=== PATIENT | male | born 1980 | race Caucasian/White ===

== ENCOUNTER 2020-03-27 15:00 | Observation (INO) | payer MEDICAID, SELFPAY ==
[2020-03-27 15:11] VITALS: BP 121/71; PULSE 82; RESP 14; TEMP 38; O2SAT 95
[2020-03-27 15:47] LABS: Bilirubin Small (Negative); Blood Negative (Negative); Clarity Clear (Clear); Glucose Negative (Negative); Ketones Negative (Negative); Leukocyte Esterase Negative (Negative); Nitrite Negative (Negative); Specific Gravity >= 1.030 (1.005-1.025); Urobilinogen 0.2 EU/dL (Up TO 0.2)
[2020-03-27 15:50] VITALS: TEMP 36.6
[2020-03-27 16:00] LABS: Bacteria Negative HPF (Negative); C & S Indicated? No; Casts Negative LPF (Negative); Crystals Few Calcium Oxalate HPF (Negative); Epithelial Cells Negative HPF (Negative); Mucus Heavy (Negative); Other Cells Negative (Negative); RBC Negative HPF (0-2)
[2020-03-27 16:24] LABS: *AMPHETAMINES SCREEN URINE Negative (Negative); *BARBITURATES SCREEN URINE Negative (Negative); *BENZODIAZEPINES SCREEN URINE Negative (Negative); Cannabinoids THC POSITIVE (Negative); Cocaine Screen,Urine POSITIVE (Negative); METHADONE URINE SCREEN POSITIVE (Negative); OPIATES URINE SCREEN POSITIVE (Negative)
[2020-03-27 16:37] LABS: Tricyclic Antidepressants POSITIVE (Negative)
--- NOTE | 2020-03-27 17:11 | CMSP_ITS ---
- If Service Date Differs Date of service: 03/27/20 Time of Service: 17:11 Care Management Safety Plan Chief Complaint: William is a 39 year old male who is currently homeless. He presents to the ED due to suicidal ideation with a plan of overdosing. William has a history of substance use and admits to last using heroin approximately 24 hours ago. He denies recent use of any other substances but his UDS returns positive for cocaine, methadone, and THC, in addition to opiates. William is seeking a voluntary placement for the treatment of suicidal ideation and his substance use. VOLUNTARY FOR INPATIENT PSYCHIATRIC STABILIZATION. Patient is appropriate in all interactions since arriving at [facility]; Pt has demonstrated appropriate coping and communication skills, has articulated his needs and concerns and is fully engaged during staff interactions. Safety plan has been established with patient, and care team, to adhere to patient goals, identify restrictions based on behavioral status, address nutrition, and determine allowed personal belongings, tools for hygiene and personal care. Determine level of activity including ambulation, level of supervision, visitors, and determine privileges based on behaviors and level of engagement by pt. SAFETY PLAN: 1. Will remain on suicide precautions. In Paper Clothes 2. Will remain in room under direct supervision of one-on-one staff at all times provided by CPSO; RADHA, STAFF PSYCHOLOGIST crabbing machine operator. 3. May have paper cups, plates, finger foods as well as a cardboard spoon with which to eat meals. 4. Follow [facility] Management of the Admitted Behavioral Health Patient policy. 5. Comfort bath system only. 6. No personal belongings 7. Visitors-No visitors at this time 8. Activities: None while in the ED. If moved to Med/Surg, patient will be allowed soft tip crayons, paper, television, and other activities at nursing discretion. 9. Bathroom privileges: While in the ED, must be accompanied by staff. If patient is moved to Med/Percy, he will be allowed to use the bathroom in his room without supervision. 10. Phone: No phone privileges at this time. 11. Due to VOLUNTARY status, if patient wishes to leave [facility], the [facility] cement and concrete plant worker must be contacted to re-evaluate patient prior to patient exiting the building. Patient is currently voluntarily at [facility] and seeking inpatient admission when a bed becomes available. [facility] Frontline Test Inspection Engineer will continue seeking placement. Please contact the Screen Handler Gold[employer]ater ([phone]) and [facility] Test Inspection Engineer ([phone]) for any needed changes in the Safety Plan. Safety plan has been provided to interdepartmental care team.
--- NOTE | 2020-03-27 17:53 | W.ED.GENAD ---
Discharge Plan Disposition Patient Disposition: OTHER Discharge Details Chief Complaint: PsychEval Clinical Impression: Suicide ideation, Polysubstance abuse Admit Date/Time: 03/27/20 18:57 Admit Provider: Leon Pickard Attending Provider: Leon Pickard Primary Care Provider: Charo Callejas ED Provider: Colton Ortega Medical Decision Making 39-year-old gentleman with history of polysubstance abuse presents to the ER requesting placement for suicidal ideation and help with his substance abuse. Of note he presented with a temperature of 38.0, had just come in from outside. Temperature was rechecked and was 36.6. I do not believe that he was truly febrile. He denies any recent illness or trauma. No signs of illness upon evaluation. No signs of withdrawal upon evaluation. CPSO, mental health examination, care management, all initiated. Will obtain routine laboratory values for medical clearance for placement to a facility. I spoke with mental health, they agree he requires inpatient therapy and are attempting to place him although this will likely not happen today. We will add on a COVID test now. We will discuss case with our hospitalist team for admission until placement may be found. Medical Records Medical records reviewed: Yes I reviewed the patient's medical records. Lab Data Lab results reviewed: Yes I reviewed the patient's lab results. Lab results narrative: Laboratory Tests Range/Units 03/27/20 03/27/20 03/27/20 15:30 15:30 18:22 WBC (4.4-10.8) k/cumm RBC (4.50-6.00) m/cumm Hgb (13.5-17.5) g/dL Hct (40.0-50.0) % MCV (80-95) fL MCH (27.0-33.0) pg MCHC (32.0-36.0) g/dL RDW (11.8-14.1) % Plt Count (130-400) x1000/uL MPV (8.0-11.0) fL Immature Gran % % Neutrophils % Lymphocytes % Monocytes % Eosinophils % Basophils % Absolute Neutrophils (1.2-6.7) k/cumm Absolute Lymphocytes (1.2-3.4) k/cumm Absolute Monocytes (0.11-0.7) k/cumm Absolute Eosinophils (0.0-0.7) k/cumm Absolute Basophils (0.0-0.2) k/cumm Sodium (136-145) mmol/L 140 Potassium (3.5-5.1) mmol/L 4.0 Chloride (98-107) mmol/L 103 Carbon Dioxide (21.0-32.0) mmol/L 31.5 Anion Gap (3-11) mmol/L 5.5 BUN (7-18) mg/dL 10 Creatinine (0.70-1.30) mg/dL 1.12 Estimated GFR/1.73 m2 (mL/min/1.73m2) >= 60.00 Glucose (74-106) mg/dL 88 Calcium (8.5-10.1) mg/dL 9.2 Total Bilirubin (0.2-1.0) mg/dL 0.4 AST (15-37) U/L 19 ALT (16-63) U/L 16 Alkaline Phosphatase (46-116) U/L 80 Total Protein (6.4-8.2) g/dL 8.1 Albumin (3.4-5.0) g/dL 3.5 TSH (0.36-3.74) uIU/mL 0.43 Urine Color (Yellow) Yellow Urine Clarity (Clear) Clear Urine pH (5-8) 6.0 Ur Specific [place] (1.005-1.025) >= 1.030 H Urine Protein (Negative) mg/dL 30 H Urine Ketones (Negative) mg/dL Negative Urine Blood (Negative) Negative Urine Nitrite (Negative) Negative Urine Bilirubin (Negative) Small H Urine Urobilinogen (Up TO 0.2) EU/dL 0.2 Ur Leukocyte Esterase (Negative) Negative Urine RBC (0-2) HPF Negative Urine WBC (0-5) HPF 3-5 Ur Epithelial Cells (Negative) HPF Negative Urine Crystals (Negative) HPF Few calcium oxalate Urine Bacteria (Negative) HPF Negative Urine Casts (Negative) LPF Negative Urine Mucus (Negative) Heavy Urine Other (Negative) Negative Ur Culture Indicated? No Urine Glucose (Negative) mg/dL Negative Urine Opiates Screen (Negative) Positive A Urine Methadone Screen (Negative) Positive A Ur Barbiturates Screen (Negative) Negative Ur Tricyclics Screen (Negative) Positive A Ur Amphetamines Screen (Negative) Negative U Benzodiazepines Scrn (Negative) Negative Urine Cocaine Screen (Negative) Positive A Ur THC Screen (Negative) Positive A Ethyl Alcohol (<3) mg/dL Range/Units 03/27/20 03/27/20 18:22 18:22 WBC (4.4-10.8) k/cumm 9.44 RBC (4.50-6.00) m/cumm 5.12 Hgb (13.5-17.5) g/dL 13.5 Hct (40.0-50.0) % 41.6 MCV (80-95) fL 81.3 MCH (27.0-33.0) pg 26.4 L MCHC (32.0-36.0) g/dL 32.5 RDW (11.8-14.1) % 16.4 H Plt Count (130-400) x1000/uL 449 H MPV (8.0-11.0) fL 8.6 Immature Gran % % 0.2 Neutrophils % 66.0 Lymphocytes % 25.8 Monocytes % 7.2 Eosinophils % 0.5 Basophils % 0.3 Absolute Neutrophils (1.2-6.7) k/cumm 6.22 Absolute Lymphocytes (1.2-3.4) k/cumm 2.44 Absolute Monocytes (0.11-0.7) k/cumm 0.68 Absolute Eosinophils (0.0-0.7) k/cumm 0.05 Absolute Basophils (0.0-0.2) k/cumm 0.03 Sodium (136-145) mmol/L Potassium (3.5-5.1) mmol/L Chloride (98-107) mmol/L Carbon Dioxide (21.0-32.0) mmol/L Anion Gap (3-11) mmol/L BUN (7-18) mg/dL Creatinine (0.70-1.30) mg/dL Estimated GFR/1.73 m2 (mL/min/1.73m2) Glucose (74-106) mg/dL Calcium (8.5-10.1) mg/dL Total Bilirubin (0.2-1.0) mg/dL AST (15-37) U/L ALT (16-63) U/L Alkaline Phosphatase (46-116) U/L Total Protein (6.4-8.2) g/dL Albumin (3.4-5.0) g/dL TSH (0.36-3.74) uIU/mL Urine Color (Yellow) Urine Clarity (Clear) Urine pH (5-8) Ur Specific [place] (1.005-1.025) Urine Protein (Negative) mg/dL Urine Ketones (Negative) mg/dL Urine Blood (Negative) Urine Nitrite (Negative) Urine Bilirubin (Negative) Urine Urobilinogen (Up TO 0.2) EU/dL Ur Leukocyte Esterase (Negative) Urine RBC (0-2) HPF Urine WBC (0-5) HPF Ur Epithelial Cells (Negative) HPF Urine Crystals (Negative) HPF Urine Bacteria (Negative) HPF Urine Casts (Negative) LPF Urine Mucus (Negative) Urine Other (Negative) Ur Culture Indicated? Urine Glucose (Negative) mg/dL Urine Opiates Screen (Negative) Urine Methadone Screen (Negative) Ur Barbiturates Screen (Negative) Ur Tricyclics Screen (Negative) Ur Amphetamines Screen (Negative) U Benzodiazepines Scrn (Negative) Urine Cocaine Screen (Negative) Ur THC Screen (Negative) Ethyl Alcohol (<3) mg/dL < 3.0 HPI General Mode of arrival: ambulatory. Date/Time Provider Initiated Documentation: 03/27/20 15:32. Limitations to Documentation: no limitations. Information obtained by: patient. HPI Narrative: 39-year-old gentleman who is noncompliant with his medications for at least 1 month, history of polysubstance abuse, presents to the ER today reporting SI, avoid overdose. He has not done anything today to harm himself. He reports that his last use of IV heroin was yesterday, last alcoholic drink was earlier today. He reports drinking 12 beers daily and using as much heroin as he can get his hands on. He denies any other drug use to me. Patient reports that he is sick and tired of being addicted to these drugs and it is overwhelming causing him to become depressed and suicidal. He reports that he has gone to a formal detox facility roughly 3 years ago and was sober for a short period of time. He denies any recent illness or trauma. No active withdrawal symptoms now. Related Data Home Medications Medication Instructions Recorded Confirmed fluoxetine 60 mg PO QAM 03/18/13 03/27/20 omeprazole 20 mg PO BID 03/18/13 03/27/20 methadone 65 mg PO DAILY 03/31/14 03/27/20 aripiprazole [Abilify] 7.5 mg PO DAILY 07/15/17 03/27/20 multivitamin [Multiple Vitamins] 1 tab PO DAILY #30 tab 07/21/17 03/27/20 propranolol 10 mg PO TID #90 tab 07/21/17 03/27/20 thiamine mononitrate (vit B1) 100 mg PO DAILY #7 tab 07/21/17 03/27/20 [Vitamin B-1 (mononitrate)] Previous Rx's Medication Instructions Recorded multivitamin [Multiple Vitamins] 1 tab PO DAILY #30 tab 07/21/17 propranolol 10 mg PO TID #90 tab 07/21/17 thiamine mononitrate (vit B1) 100 mg PO DAILY #7 tab 07/21/17 [Vitamin B-1 (mononitrate)] Allergies Allergy/AdvReac Type Severity Reaction Status Date / Time No Known Allergies Allergy Unverified 07/16/17 22:58 General Stated Complaint: PsychEval RAVEN: 2 Review of Systems Constitutional Constitutional: Denies fatigue, Denies fever(s), Denies headache(s) and Denies weakness Eyes Eyes: Denies change in vision ENT Ears, Nose, Mouth, and Throat: Denies headache(s) Cardiovascular Cardiovascular: Denies chest pain and Denies dyspnea Respiratory Respiratory: Denies cough and Denies dyspnea Gastrointestinal Gastrointestinal: Denies abdominal pain, Denies nausea and Denies vomiting Genitourinary Genitourinary: Denies dysuria Musculoskeletal Musculoskeletal: Denies numbness and Denies tingling Integumentary/Breasts Skin/Breast: Denies rash Neurologic Neurologic: Denies headache(s), Denies numbness, Denies tingling and Denies weakness Psychiatric Psychiatric: Reports hopelessness, Denies homicidal ideation and Reports suicidal ideation Endocrine Endocrine: Denies fatigue [facility] Social History Smoking/Tobacco Use Status: Current-Occasional Tobacco Type: cigarettes Alcohol Intake: current Alcohol Intake frequency: 3 or more drinks per day Alcohol type: beer Drug use: Daily Substance use type: heroin Details: last used heroine yesterday. ivda Do you feel safe at home: No (homeless) Do you feel safe in your relationship?: Yes Additional Social history: homeless x 1 month Exam Const General: cooperative, healthy appearing, comfortable and no acute distress Orientation: alert, awake and oriented x3 [facility] Head: normal to inspection, normocephalic and atraumatic Face and sinus: normal facial exam Mouth: moist mucous membranes Throat: posterior oropharynx normal Eyes Conjunctivae: conjunctivae normal Sclera: sclerae normal Neck Neck: normal visual inspection, full ROM, no lymphadenopathy, no meningeal signs, trachea midline, supple and nontender Resp Effort & Inspection: normal respiratory effort and able to speak in complete sentences Auscultation: clear to auscultation bilaterally Cardio Rate: regular rate Rhythm: regular rhythm GI Palpation: soft and nontender Auscultation: normal bowel sounds Back/Spine/Pelvis Back: No back tenderness Skin General skin exam: no rashes or lesions noted and other (Multiple track lee) Neuro General: patient alert, patient awake, patient oriented x3, moves all extremities and no focal motor deficits Cranial Nerves: CN's II-XI intact bilaterally Cognition: normal cognition Speech: speech normal Gait: normal gait Motor: muscle tone normal throughout and strength 5/5 throughout Sensory Exam: no sensory deficits noted Extrem General: full ROM and capillary refill normal Psych Appearance: grossly normal Mental Status: mental status grossly normal Speech and Movement: speech and movement normal Mood: dysthymic mood Affect: sad Attitude: cooperative Thought Process: normal Thought Content: suicidality Insight: fair Judgment: fair Course Vital Signs Vital signs: Vital Signs Temperature 38.0 C H 03/27/20 15:11 Pulse 82 03/27/20 15:11 Respiratory Rate 14 03/27/20 15:11 Blood Pressure 121/71 03/27/20 15:11 Pulse Oximetry 95 03/27/20 15:11 Temperature 38.0 C H 03/27/20 15:11 Temperature Source Temporal Artery Scan 03/27/20 15:11 Pulse 82 03/27/20 15:11 Respiratory Rate 14 03/27/20 15:11 Respiratory Effort 03/27/20 15:15 Blood Pressure 121/71 03/27/20 15:11 Blood Pressure Position Sitting 03/27/20 15:11 Pulse Oximetry 95 03/27/20 15:11 Oxygen Delivery Method Room Air 03/27/20 15:11 Oxygen Flow Rate 0 03/27/20 15:11 Pain Level 0 03/27/20 15:11 Lab/Test Results Lab/Test Results: Laboratory Tests Range/Units 03/27/20 03/27/20 15:30 15:30 Urine Color (Yellow) Yellow Urine Clarity (Clear) Clear Urine pH (5-8) 6.0 Ur Specific [place] (1.005-1.025) >= 1.030 H Urine Protein (Negative) mg/dL 30 H Urine Ketones (Negative) mg/dL Negative Urine Blood (Negative) Negative Urine Nitrite (Negative) Negative Urine Bilirubin (Negative) Small H Urine Urobilinogen (Up TO 0.2) EU/dL 0.2 Ur Leukocyte Esterase (Negative) Negative Urine RBC (0-2) HPF Negative Urine WBC (0-5) HPF 3-5 Ur Epithelial Cells (Negative) HPF Negative Urine Crystals (Negative) HPF Few calcium oxalate Urine Bacteria (Negative) HPF Negative Urine Casts (Negative) LPF Negative Urine Mucus (Negative) Heavy Urine Other (Negative) Negative Ur Culture Indicated? No Urine Glucose (Negative) mg/dL Negative Urine Opiates Screen (Negative) Positive A Urine Methadone Screen (Negative) Positive A Ur Barbiturates Screen (Negative) Negative Ur Tricyclics Screen (Negative) Positive A Ur Amphetamines Screen (Negative) Negative U Benzodiazepines Scrn (Negative) Negative Urine Cocaine Screen (Negative) Positive A Ur THC Screen (Negative) Positive A
[2020-03-27 18:30] LABS: Abs Immature Grans 0.02 k/cumm (0.0-0.09); Absolute Basophil Count 0.03 k/cumm (0.0-0.2); Absolute Eosinophil Count 0.05 k/cumm (0.0-0.7); Absolute Lymphocyte Count 2.44 k/cumm (1.2-3.4); Absolute Monocyte Count 0.68 k/cumm (0.11-0.7); Absolute Neutrophil Count 6.22 k/cumm (1.2-6.7); Basophils % 0.3; Eosinophils % 0.5; HCT 41.6 % (40.0-50.0); HGB 13.5 g/dL (13.5-17.5); Immature Grans % 0.2 %; Lymphocytes % 25.8; Mean Corp. HGB Concentration 32.5 g/dL (32.0-36.0); Mean Corpuscular Hemoglobin 26.4 pg (27.0-33.0); Mean Corpuscular Volume 81.3 fL (80-95); Mean Platelet Volume 8.6 fL (8.0-11.0); Monocytes % 7.2; Platelet Count 449 x1000/uL (130-400); RBC 5.12 m/cumm (4.50-6.00); RBC Distribution Width 16.4 % (11.8-14.1); White Blood Cell Count 9.44 k/cumm (4.4-10.8)
--- NOTE | 2020-03-27 18:44 | W.PM.HP.N ---
Date of service: 03/27/20 Time of Service: 18:44 Assessment and Plan Assessment and plan (1) Suicidal ideation: Status: Acute Assessment and plan: Suicidal. First, will await remainder of lab w/u, but at this point the medical issues would be w/d from alcohol andn opiates; as above the repolrted fever appears to have been spurious but will track. Note also that the breport is that he has not been taking any of his meds so will not resume; will defer to psychiatry. Suicidal: precautions, await placement EtOH: banana bag, CIWA Opiate w/d: supportive measures History of Present Illness History of Present Illness Chief Complaint: suicidal Narrative: 39 male with h/o depression and polysubstance abuse. reports gradually inreasing depression to the point today where he began feeling frankly suicidal. Brought himself to ER. In ER does c/o some withdrawal symptoms (EtOH, 12 beer/day; heroin 10 bags/day) Iniktial labs of note for normal CBC, ytox scrfeen + opiates, TCA,; chemistries pending. Admitted psych bed availability and COVID results. Review of Systems All systems reviewed & are unremarkable except as noted in HPI and below PFSH Social History Smoking/Tobacco Use Status: Current-Occasional Tobacco Type: cigarettes Alcohol Intake: current Alcohol Intake frequency: 3 or more drinks per day Alcohol type: beer Drug use: Occasionally Substance use type: heroin Details: last used heroine yesterday. ivda Do you feel safe at home: No (homeless) Do you feel safe in your relationship?: Yes Additional Social history: homeless x 1 month Meds Home Medications and Allergies Home Medications Medication Instructions Recorded Confirmed Type fluoxetine 60 mg PO QAM 03/18/13 03/27/20 History omeprazole 20 mg PO BID 03/18/13 03/27/20 History methadone 65 mg PO DAILY 03/31/14 03/27/20 History aripiprazole [Abilify] 7.5 mg PO DAILY 07/15/17 03/27/20 History multivitamin [Multiple Vitamins] 1 tab PO DAILY #30 tab 07/21/17 03/27/20 Rx propranolol 10 mg PO TID #90 tab 10/09/17 06/15/20 Rx thiamine mononitrate (vit B1) 100 mg PO DAILY #7 tab 07/21/17 03/27/20 Rx [Vitamin B-1 (mononitrate)] Allergies Allergy/AdvReac Type Severity Reaction Status Date / Time No Known Allergies Allergy Unverified 07/16/17 22:58 Exam Narrative Exam Narrative: 121/71, 82, 14, 38.0 (this was forehead scan ER reports, and immediately thereafter 36.6 orally). HEENT atraumatic; neck supple; lungs clear; heart RRR w/o MRG; abdomen soft and NT; extremities w/o edema, multiple tracks, nol cellulitis noted. Results Labs Result diagrams: 03/27/20 18:22 03/27/20 18:22 Labs: Laboratory Results - last 24 hr 03/27/20 03/27/20 03/27/20 15:30 15:30 18:22 WBC 9.44 RBC 5.12 Hgb 13.5 Hct 41.6 MCV 81.3 MCH 26.4 L MCHC 32.5 RDW 16.4 H Plt Count 449 H MPV 8.6 Immature Gran % 0.2 Neutrophils % 66.0 Lymphocytes % 25.8 Monocytes % 7.2 Eosinophils % 0.5 Basophils % 0.3 Absolute Neutrophils 6.22 Absolute Lymphocytes 2.44 Absolute Monocytes 0.68 Absolute Eosinophils 0.05 Absolute Basophils 0.03 Urine Color Yellow Urine Clarity Clear Urine pH 6.0 Ur Specific [place] >= 1.030 H Urine Protein 30 H Urine Ketones Negative Urine Blood Negative Urine Nitrite Negative Urine Bilirubin Small H Urine Urobilinogen 0.2 Ur Leukocyte Esterase Negative Urine RBC Negative Urine WBC 3-5 Ur Epithelial Cells Negative Urine Crystals Few calcium oxalate Urine Bacteria Negative Urine Casts Negative Urine Mucus Heavy Urine Other Negative Ur Culture Indicated? No Urine Glucose Negative Urine Opiates Screen Positive A Urine Methadone Screen Positive A Ur Barbiturates Screen Negative Ur Tricyclics Screen Positive A Ur Amphetamines Screen Negative U Benzodiazepines Scrn Negative Urine Cocaine Screen Positive A Ur THC Screen Positive A Last Vital Signs Temp 38.0 C H 03/27/20 15:11 Pulse 82 03/27/20 15:11 Resp 14 03/27/20 15:11 BP 121/71 03/27/20 15:11 Pulse Ox 95 03/27/20 15:11 COVID-19 Screening In the past 14 days, have you traveled outside of [place] or [place]?: NO Had IN PERSON contact w/suspected or confirmed C-19 person: No
[2020-03-27 18:57] LABS: ALT 16 U/L (16-63); AST 19 U/L (15-37); Albumin 3.5 g/dL (3.4-5.0); Alkaline Phosphatase 80 U/L (46-116); Anion Gap 5.5 mmol/L (3-11); BUN 10 mg/dL (7-18); Bilirubin, Total 0.4 mg/dL (0.2-1.0); CO2 31.5 mmol/L (21.0-32.0); CREATININE 1.12 mg/dL (0.70-1.30); Calcium 9.2 mg/dL (8.5-10.1); Chloride 103 mmol/L (98-107); ETHANOL BLOOD < 3.0 mg/dL (<3); Glucose 88 mg/dL (74-106); Sodium 140 mmol/L (136-145); TSH 0.43 uIU/mL (0.36-3.74); Total Protein 8.1 g/dL (6.4-8.2)
[2020-03-27] MEDS: MAGNESIUM SULFATE 8.12 MEQ, MULTIVITAMIN 10 ML, THIAMINE 100 MG, FOLIC ACID 1 MG in Nor... 168.867 MG IV (19:37)
[2020-03-27 19:46] VITALS: BP 108/59; PULSE 58; RESP 18; TEMP 37.2; O2SAT 96
[2020-03-27 19:55] VITALS: BP 124/75; PULSE 54; RESP 17; TEMP 37.1; O2SAT 97
[2020-03-27 20:07] VITALS: BP 124/75; PULSE 54; RESP 18; TEMP 37.1; O2SAT 97
--- NOTE | 2020-03-27 20:48 | PDOC.MHPN2 ---
Date of service: 03/27/20 Time of Service: 20:54 Mental Health Progress Note Progress Note Progress Note: Presenting Issue: Client presented to the ED due to suicidal ideations and substance abuse. Precipitating Factors Client advised he discontinued his methadone maintenance program one month ago. Client states that he plans to overdose on heroin if he leaves the hospital, and that he wants to get help. Client advises that he is homeless, hasn't spoken to any family in months, and would have overdosed yesterday, had he been able to find enough heroin. Disposition * Behavior: Client is lying down on hospital bed. Client is compliant and appropriate with the tablet used for the Zoom assessment. Client's speech is pressured, and he states he is detoxing and very uncomfortable. *Eye Contact: consistent *Mood: depressed *Affect: flat *Appetite: unknown to this sign writer letterer or painter *Sleep(troubel falling/staying asleep): unknown to this sign writer letterer or painter Plan(please elaborate and include that physician is consulted with plan and/or placement): Client will remain at [facility] to await placement. Clinician's Name , Title, and Signature Rosalind Lombardo Emergency Services Clinician [facility] Make sure that you are photocopying and submitting this to [facility] records Dept. to be scanned into chart.
[2020-03-27] MEDS: LORazepam 1 MG TAB PO/SL (20:56)
[2020-03-27 23:41] VITALS: BP 115/72; PULSE 61; RESP 16; TEMP 36.2; O2SAT 96
[2020-03-28] VITALS (7 sets, daily range): BP systolic 112–156; BP diastolic 68–82; PULSE 59–81; RESP 18–22; TEMP 36.3–37.1; O2SAT 95–99
[2020-03-28] MEDS: LORazepam 1 MG TAB PO/SL ×6 (00:13→11:24)
[2020-03-28] MEDS: Lactated Ringers 1,000 ML 80 ML IV (01:50)
[2020-03-28] MEDS: Acetaminophen 325 MG TAB 650 MG PO (07:10)
--- NOTE | 2020-03-28 08:03 | PDOC.CMIN ---
- If Service Date Differs Date of service: 03/28/20 Time of Service: 08:03 Care Management Initial Assess REASON FOR HOSPITALIZATION:: SI PAST MEDICAL HISTORY/PAST SURGICAL HISTORY:: Polysubstance abuse
[2020-03-28 08:32] LABS: COVID-19 RT-PCR UVMMC Result Negative (Negative)
--- NOTE | 2020-03-28 11:11 | MHPN_ITS ---
Date of service: 03/28/20 Time of Service: 11:11 Mental Health Crisis Note Presenting Issue How did you arrive at the ED and why did you come: William arrived yesterday to the ER due to SI and SA concerns. It is unknown how he arrived. Precipitating Factors William still endorses SI at this time with a plan to overdose on heroin if he were to leave. He rated his SI on a scale of 0-10 at a 7 today. He denied HI. William does not show signs of delusions at this time. Disposition BEHAVIOR: William is engaged and cooperative as much as he can be with the assessment. He appears to be medicated to help with his detox and so is struggling to stay awake for the assessment. EYE CONTACT: Poor as he is struggling to stay awake and even when he is looking at this IPad his eyes are droopy and tired. MOOD: Depressed and hopeless as evidenced by his answers through the assessment. AFFECT: flat and tired APPETITE: William reported that his appetite is ok but that he gets nauseous within 10 minutes after eating. SLEEP(trouble falling/staying asleep: William reported that his sleep is fine when he is not detoxing but when he detoxes it is not good. Plan This clinician will call hospitals to see about availability and report back to Sharyn Davis about outcomes. Signature Clinician's Name/Title: Angeline Calhoun MS, [facility] Emergency Services Clinician
[2020-03-28] MEDS: diphenhydrAMINE 50 MG/ML VIAL IVP (11:13)
[2020-03-28] MEDS: chlordiazePOXIDE 25 MG CAP 50 MG PO (11:13)
--- NOTE | 2020-03-28 11:38 | W.PM.DS.N ---
Date of service: 03/28/20 Time of Service: 11:38 DS: Diagnosis Discharge Diagnosis (1) Suicidal ideation: Status: Acute (2) Polysubstance abuse: Status: Acute Asessment and Plan: reports withdrawing from heroin and alcohol. is receiving librium, ativan and benadryl, vitals have been stable. Discharge Plan Disposition Patient Disposition: [facility] Condition: Fair Discharge Details Chief Complaint: PsychEval Clinical Impression: Suicide ideation, Polysubstance abuse Reason For Visit: SUICIDAL Admit Date/Time: 03/27/20 18:57 Admit Provider: Leon Pickard Attending Provider: Leon Pickard Primary Care Provider: Charo Callejas ED Provider: Colton Ortega Hospital Course Hospital Course: This is a 39-year-old male who presented to the emergency department for mental health evaluation reporting that he was suicidal and depressed. He was discharged from [facility] about 1 month ago and does have a longstanding history of substance abuse and depression with suicidal ideation. He was seen here the night prior after falling off a ladder but is insistent that it was an accident and not intentional. He reports he drinks about a case of beer a day and has been using IV heroin cocaine in addition to smoking marijuana. Medically he reports he has been stable with no fevers chills or recent illness. He has no specific suicide plan but does say he feels depressed and feels there is no reason to live. He was admitted to the medical surgical unit while awaiting inpatient psychiatric care. Hemodynamically he is remained stable he has been restless most likely due to his heroin withdrawal. He has been receiving Ativan and today Benadryl and Librium have been added. There have been no behavioral disturbances. He will not admit whether or not he is still suicidal today. Case management has been following and a bed has been secured at [facility]. He will be transported by ground EMS with assistant boiler operator level service as he may require lorazepam in route and will require monitoring of vital signs and assessment and management of of potential withdrawal seizure. Again he has been hemodynamically stable with no behavioral issues. Home Meds and New Rx's Prescriptions: Continued omeprazole 10 MG capsule,delayed release(DR/EC) 20 mg PO BID RF: 0 fluoxetine 20 MG capsule 60 mg PO QAM RF: 0 methadone 10 MG/ML concentrate 65 mg PO DAILY RF: 0 aripiprazole [Abilify] 5 MG tablet 7.5 mg PO DAILY RF: 0 multivitamin [Multiple Vitamins] 1 TAB tablet 1 tab PO DAILY Qty: 30 RF: 0 propranolol 10 MG tablet 10 mg PO TID Qty: 90 RF: 0 thiamine mononitrate (vit B1) [Vitamin B-1 (mononitrate)] 100 MG tablet 100 mg PO DAILY Qty: 7 RF: 0 Discharge Instructions Instructions: Abuse of Alcohol (DC), Help Prevent Suicide in Older Adults (DC), Opioid Withdrawal (DC) Stand Alone Forms: Nursing Discharge Form Referrals: Charo Callejas [Primary Care Provider] - (upon discharge from rehabilitation) Activity:: Activity as Tolerated Equipment/Supplies:: No Equipment Needed Diet:: As Tolerated Discharge Orders Discharge Orders: Discharge Order (Routine); Ordered 03/28/20 Ordered By: Judy Wagoner Discharge Data Discharge Date/Time-TO BE ENTERED AT DEPARTURE: 03/28/20 12:42 DS: Summary Status at Discharge Functional status at discharge: independent ambulation Overall status at discharge: patient is not back to baseline Mental Status: other (withdrawal symptoms) Speech and Movement: speech and movement normal Mood: other (withdrawal symptoms) Affect: normal affect Exam Const General: cooperative, acute distress moderate, anxious, disheveled and ill appearing acutely Nutritional Appearance: average body habitus Orientation: alert, oriented x3 and other (lethargic) HENMT Head: normal to inspection, normocephalic and atraumatic Mouth: oral mucosae normal Resp Effort & Inspection: normal respiratory effort Cardio Rate: regular rate Rhythm: regular rhythm GI Inspection: normal to inspection Palpation: soft Auscultation: normal bowel sounds Skin General skin exam: other (tattoos ) Lesions: lesion noted (track lee, small sores ? from picking, no sign of infection) Rashes: no rashes Neuro General: patient awake and patient oriented x3 Cranial Nerves: CN's II-XI intact bilaterally Cognition: normal cognition Speech: speech normal Extrem General: normal to inspection and full ROM Psych Mental Status: other (withdrawal symptoms) Speech and Movement: speech and movement normal Mood: other (withdrawal symptoms) Affect: normal affect DS: Data Vitals/I&O Vitals and I&O: Vital Signs Temperature 36.9 C 03/28/20 11:18 Temperature Source Tympanic 03/28/20 11:18 Pulse 81 03/28/20 11:18 Pulse Rhythm Regular 03/28/20 08:53 Respiratory Rate 22 03/28/20 11:18 Respiratory Effort Non-Labored 03/28/20 08:53 Respiratory Depth Normal 03/28/20 08:53 Respiratory Pattern Normal 03/28/20 08:53 Blood Pressure 145/81 H 03/28/20 11:18 Blood Pressure Position Sitting 03/27/20 15:11 Pulse Oximetry 99 03/28/20 11:18 Oxygen Delivery Method Room Air 03/28/20 11:18 Oxygen Flow Rate 0 03/28/20 11:18 Pain Level 8 03/28/20 11:18 Intake & Output 03/27/20 03/27/20 03/28/20 11:59 23:59 11:59 Intake Total 320 / 320 2468.667 / 2468.667 Balance 320 / 320 2468.667 / 2468.667 Weight 90.718 kg Intake: IV 768.667 / 768.667 Oral 300 / 300 1700 / 1700 Other: Urine Color Yellow Urine Appearance Clear Clear Urine Odor Normal Voiding Methods Toilet Data Completed and Pending Labs on day of discharge: Labs from last 24 hours 03/27/20 03/27/20 03/27/20 18:30 18:22 18:22 WBC 9.44 RBC 5.12 Hgb 13.5 Hct 41.6 MCV 81.3 MCH 26.4 L MCHC 32.5 RDW 16.4 H Plt Count 449 H MPV 8.6 Immature Gran % 0.2 Neutrophils % 66.0 Lymphocytes % 25.8 Monocytes % 7.2 Eosinophils % 0.5 Basophils % 0.3 Absolute Neutrophils 6.22 Absolute Lymphocytes 2.44 Absolute Monocytes 0.68 Absolute Eosinophils 0.05 Absolute Basophils 0.03 Sodium Potassium Chloride Carbon Dioxide Anion Gap BUN Creatinine Estimated GFR/1.73 m2 Glucose Calcium Total Bilirubin AST ALT Alkaline Phosphatase Total Protein Albumin TSH Urine Color Urine Clarity Urine pH Ur Specific Moore Urine Protein Urine Ketones Urine Blood Urine Nitrite Urine Bilirubin Urine Urobilinogen Ur Leukocyte Esterase Urine RBC Urine WBC Ur Epithelial Cells Urine Crystals Urine Bacteria Urine Casts Urine Mucus Urine Other Ur Culture Indicated? Urine Glucose Urine Opiates Screen Urine Methadone Screen Ur Barbiturates Screen Ur Tricyclics Screen Ur Amphetamines Screen U Benzodiazepines Scrn Urine Cocaine Screen Ur THC Screen Ethyl Alcohol < 3.0 COVID-19 PCR Negative Nasopharyn COVID-19 PCR Not Applicable Ref Test Perform Site [facility] 03/27/20 03/27/20 03/27/20 18:22 15:30 15:30 WBC RBC Hgb Hct MCV MCH MCHC RDW Plt Count MPV Immature Gran % Neutrophils % Lymphocytes % Monocytes % Eosinophils % Basophils % Absolute Neutrophils Absolute Lymphocytes Absolute Monocytes Absolute Eosinophils Absolute Basophils Sodium 140 Potassium 4.0 Chloride 103 Carbon Dioxide 31.5 Anion Gap 5.5 BUN 10 Creatinine 1.12 Estimated GFR/1.73 m2 >= 60.00 Glucose 88 Calcium 9.2 Total Bilirubin 0.4 AST 19 ALT 16 Alkaline Phosphatase 80 Total Protein 8.1 Albumin 3.5 TSH 0.43 Urine Color Yellow Urine Clarity Clear Urine pH 6.0 Ur Specific Moore >= 1.030 H Urine Protein 30 H Urine Ketones Negative Urine Blood Negative Urine Nitrite Negative Urine Bilirubin Small H Urine Urobilinogen 0.2 Ur Leukocyte Esterase Negative Urine RBC Negative Urine WBC 3-5 Ur Epithelial Cells Negative Urine Crystals Few calcium oxalate Urine Bacteria Negative Urine Casts Negative Urine Mucus Heavy Urine Other Negative Ur Culture Indicated? No Urine Glucose Negative Urine Opiates Screen Positive A Urine Methadone Screen Positive A Ur Barbiturates Screen Negative Ur Tricyclics Screen Positive A Ur Amphetamines Screen Negative U Benzodiazepines Scrn Negative Urine Cocaine Screen Positive A Ur THC Screen Positive A Ethyl Alcohol COVID-19 PCR Nasopharyn COVID-19 PCR Ref Test Perform Site [facility] Social History Smoking/Tobacco Use Status: Current-Occasional Tobacco Type: cigarettes Alcohol Intake: current Alcohol Intake frequency: 3 or more drinks per day Alcohol type: beer Drug use: Daily Substance use type: heroin Details: last used heroine yesterday. ivda Do you feel safe at home: No (homeless) Do you feel safe in your relationship?: Yes Additional Social history: homeless x 1 month
--- NOTE | 2020-03-28 11:46 | CMPROGNOTE_ITS ---
- If Service Date Differs Date of service: 03/28/20 Time of Service: 08:30 Care Management Progress Note S/O: William is sleepy when CM enters the room he is able to awake and answer some questions. He states he has no support system, he is sleeping where ever he can lay his head. He states he does have a child that he does not see. He states he is suicidal and has a plan. He reports he would like to overdose on Heroin if he could afford it. He states he last drank about 48 hours ago. He reports that he is sick of stealing to afford his habit he does not offer insight to why he stopped going to [facility]. William will continue with the current safety plan at this time. ALEA did review his care with primary nurse and will set up [facility] with [facility] Of note William does report a history of alcohol withdrawal seizures in the past. A: William is a 39 year old male with polysubstance abuse, actively withdrawing and admitted with SI. P: As of 113 patient has been accepted at [facility] ALEA assisted in coordination of transfer via Replaced By [facility] for 1230 today.
== END 2020-03-28 12:42 | disposition short-term general hospital (02) ==
LOC: ER 19:12 → MS 19:53
PROVIDERS: Admitting Provider General Practice; Emergency Provider Physician Assistant; PCP Nurse Practitioner Family; Visit Provider General Practice
DX: R45.851 Suicidal ideations (principal); F11.23 Opioid dependence with withdrawal; F32.9 Major depressive disorder, single episode, unspecified; F10.239 Alcohol dependence with withdrawal, unspecified; F17.210 Nicotine dependence, cigarettes, uncomplicated; Z59.0 Homelessness; Z11.59 Encounter for screening for other viral diseases
CPT/HCPCS: 36415; 80053; 80307; 96374; 99217; 99222; 99285; U0003; 80320; 81003; 81015; 84443; 85025; 99218; 99284; G0378; J1200

== ENCOUNTER 2020-10-09 00:18 | Emergency (ER) | payer MEDICAID, SELFPAY ==
[2020-10-09 00:23] VITALS: BP 150/102; PULSE 89; RESP 16; TEMP 36.8; O2SAT 97
--- NOTE | 2020-10-09 00:32 | ED.GENADUL_ITS ---
Discharge Plan Disposition Patient Disposition: HOME Condition: Good Discharge Details Clinical Impression: TMJ arthritis Primary Care Provider: Charo Callejas ED Provider: Boogie Hanley Home Meds and New Rx's Prescriptions: Continued methadone 10 MG/ML concentrate 95 mg PO DAILY RF: 0 No Action fluoxetine 40 mg capsule 80 mg PO DAILY RF: 0 gabapentin 400 mg capsule 400 mg PO QID RF: 0 hydroxyzine pamoate 50 mg capsule 50 mg PO Q4H PRNRF: 0 topiramate 25 mg tablet 25 mg PO BID RF: 0 melatonin 3 mg tablet 6 mg PO HS PRNRF: 0 omeprazole 20 mg capsule,delayed release(DR/EC) 20 mg PO DAILY RF: 0 loratadine 10 mg tablet 10 mg PO DAILY RF: 0 bupropion HCl 150 mg tablet extended release 24 hr 150 mg PO DAILY RF: 0 aripiprazole 2 mg tablet 4 mg PO DAILY RF: 0 Discharge Instructions Instructions: Temporomandibular Disorder (ED) Additional Instructions: At this time you have evidence of temporomandibular joint dysfunction. Please take 1000 mg of Tylenol and 800 mg of ibuprofen as needed for pain control. Please use the stretching exercises as we discussed together. If you notice any worsening of your symptoms, or any new symptoms such as vomiting, diarrhea, fever, chills, shortness of breath, chest pain, numbness, weakness, or fainting , please return immediately to the emergency department for reevaluation. Please follow up with your primary care provider as soon as possible for reassessment and reevaluation. As always, it was a pleasure participating in your medical care today. Referrals: Charo Callejas [Primary Care Provider] - Medical Decision Making 40-year-old male with a past medical history of a previous right-sided jaw dislocation presents today for right jaw pain. Patient states that today he was chewing meat noticed some pain in his right jaw and in his right lower gum. Patient is edentulous. He does wear a plate for the top though. He admits to a cracking and popping sound in his right jaw. Pain is made worse when he chews. He denies any chest pain or shortness of breath. He denies fever or chills. No other complaints at this time. No other modifying factors. Physical exam is unremarkable aside from mild cracking/popping sound when the patient opens his jaw wide. Suspect arthritis and temporomandibular joint irritation from previous dislocation now being worsen with chewing, and the aggressive chewing that he was doing earlier today when chewing meat. Demonstrated and recommend daily masseter jaw stretching exercises, recommend Tylenol Motrin, and close follow-up. Discussed red flags which to return. I have extensively reviewed the treatment plan and discharge instructions with the patient. I have addressed all patient concerns at this time. The patient was made aware of what symptoms to monitor for that would warrant a return to the emergency department. Discussed the plan with the patient, they demonstrate verbal understanding and agreement with our assessment and plan at this time. HPI General Date/Time Provider Initiated Documentation: 10/09/20 00:23 . HPI Narrative: 40-year-old male with a past medical history of a previous right-sided jaw dislocation presents today for right jaw pain. Patient states that today he was chewing meat noticed some pain in his right jaw and in his right lower gum. Patient is edentulous. He does wear a plate for the top though. He admits to a cracking and popping sound in his right jaw. Pain is made worse when he chews. He denies any chest pain or shortness of breath. He denies fever or chills. No other complaints at this time. No other modifying factors. Related Data Home Medications Medication Instructions Recorded Confirmed methadone 95 mg PO DAILY 03/31/14 10/09/20 aripiprazole 4 mg PO DAILY 10/09/20 10/09/20 bupropion HCl 150 mg PO DAILY 10/09/20 10/09/20 fluoxetine 80 mg PO DAILY 10/09/20 10/09/20 gabapentin 400 mg PO QID 10/09/20 10/09/20 hydroxyzine pamoate 50 mg PO Q4H PRN 10/09/20 10/09/20 loratadine 10 mg PO DAILY 10/09/20 10/09/20 melatonin 6 mg PO HS PRN 10/09/20 10/09/20 omeprazole 20 mg PO DAILY 10/09/20 10/09/20 topiramate 25 mg PO BID 10/09/20 10/09/20 Allergies Allergy/AdvReac Type Severity Reaction Status Date / Time No Known Allergies Allergy Unverified 07/16/17 22:58 General Stated Complaint: DentalOral RAVEN: 5 Review of Systems All systems reviewed & are unremarkable except as noted in HPI and below [facility] Social History Smoking/Tobacco Use Status: Current-Occasional Tobacco Type: cigarettes Smoking risk assessment performed?: Yes Alcohol Intake: current Alcohol Intake frequency: 3 or more drinks per day Alcohol type: beer Substance use type: heroin Do you feel safe at home: No Do you feel safe in your relationship?: Yes Exam Narrative Exam Narrative: 1.Const: Well-nourished, Well-developed, appearing stated age 2.Eyes: PERRL, no conjunctival injection, and symmetrical lids. 3.ENT: Atraumatic external nose and ears. Moist MM. Neck: Symmetric, trachea midline, No thyromegaly. Patient is a dentulous. Gumline on the bottom is without abscess, fluctuance or deformity. No bleeding or redness. Right TMJ demonstrates mild cracking with opening, but otherwise seems to open symmetrically. No evidence of deformity or significant swelling. No signs of trauma. 4.CVS: +S1/S2, No murmurs or gallops. Peripheral pulses 2+ and equal in all extremities. Brisk capillary refill in all extremities. 5.RESP: Unlabored respiratory effort. Clear to auscultation bilaterally. No wheezes rales or rhonchi 6.GI: Soft, Nontender/Nondistended, No hepatosplenomegaly. No guarding or rebound. 7.MSK: Normocephalic/Atraumatic, Extremities w/o deformity or ttp No cyanosis or clubbing, Normal movement of all extremities 8.Skin: Warm, Dry. No rashes or lesions. 9.Neuro: credit collections specialist II-XII grossly intact. Sensation grossly intact, no focal neurologic deficits. 10.Psych: (AAO) x3. Appropriate mood and affect Course Vital Signs Vital signs: Vital Signs Temperature 36.8 C 10/09/20 00:23 Pulse 89 10/09/20 00:23 Respiratory Rate 16 10/09/20 00:23 Blood Pressure 150/102 H 10/09/20 00:23 Pulse Oximetry 97 10/09/20 00:23 Temperature 36.8 C 10/09/20 00:23 Temperature Source Temporal Artery Scan 10/09/20 00:23 Pulse 89 10/09/20 00:23 Respiratory Rate 16 10/09/20 00:23 Respiratory Effort Non-Labored 10/09/20 00:25 Blood Pressure 150/102 H 10/09/20 00:23 Blood Pressure Position Sitting 10/09/20 00:23 Pulse Oximetry 97 10/09/20 00:23 Oxygen Delivery Method Room Air 10/09/20 00:23 Oxygen Flow Rate 0 10/09/20 00:23 Pain Level 5 10/09/20 00:25
[2020-10-09 00:38] VITALS: BP 139/86
== END 2020-10-09 00:40 | disposition home or self-care (01) ==
PROVIDERS: Emergency Provider Student in an Organized Health Care Education/Training Program; PCP Nurse Practitioner Family
DX: M26.641 Arthritis of right temporomandibular joint (principal)
CPT/HCPCS: 99282; 99283

== ENCOUNTER 2021-03-20 12:06 | Emergency (ER) | payer MEDICAID, SELFPAY ==
[2021-03-20] VITALS (26 sets, daily range): BP systolic 131–153; BP diastolic 64–87; PULSE 49–67; RESP 12–19; TEMP 36.8; O2SAT 95–100
--- NOTE | 2021-03-20 12:00 | RT.EKG_ITS ---
APPROVED REPORT Exam: Resting ECG Reason for Exam: chest pain Patient Location: E HR:52 bpm ECG Measurements Heart Rate 52 AXIS MS 144 P 33 QRSd 96 QRS 34 QT 501 T 36 QTc 458 Conclusion Sinus bradycardia...rate< 60 Atrial premature complex...SV complex w/ short R-R interval Probable left ventricular hypertrophy...multiple LVH criteria ST elev, probable normal early repol pattern...ST elevation, age<55 diffuse 1mm SYLVIE, does not meet STEMI criteria. non-diagnostic EKG I have reviewed and interpreted ECG and agree with software generated interpretation.
--- NOTE | 2021-03-20 12:16 | ED.GENADUL_ITS ---
Discharge Plan Disposition Patient Disposition: AGAINST MEDICAL ADVICE Condition: Serious Discharge Details Clinical Impression: Chest pain Primary Care Provider: Charo Callejas ED Provider: Colton Ortega Home Meds and New Rx's Prescriptions: Continued methadone 10 MG/ML concentrate 95 mg PO DAILY RF: 0 fluoxetine 40 mg capsule 80 mg PO DAILY RF: 0 gabapentin 400 mg capsule 400 mg PO QID RF: 0 hydroxyzine pamoate 50 mg capsule 50 mg PO Q4H PRNRF: 0 topiramate 25 mg tablet 25 mg PO BID RF: 0 melatonin 3 mg tablet 6 mg PO HS PRNRF: 0 omeprazole 20 mg capsule,delayed release(DR/EC) 20 mg PO DAILY RF: 0 loratadine 10 mg tablet 10 mg PO DAILY RF: 0 bupropion HCl 150 mg tablet extended release 24 hr 150 mg PO DAILY RF: 0 aripiprazole 2 mg tablet 4 mg PO DAILY RF: 0 Discharge Instructions Instructions: Chest Pain (ED) Discharge Data Discharge Date/Time-TO BE ENTERED AT DEPARTURE: 03/20/21 15:20 Medical Decision Making This is a 40-year-old gentleman, past medical history of polysubstance abuse which should include IV heroin, currently on 95 mg of methadone daily, current smoker, drinks approximately 12 beers daily, presents for right sided chest pain does not radiate that woke him up from sleep around 2:00 this morning. Pain has been constant. He has been on Eliquis since Friday after being diagnosed with a DVT at [facility] as well as placed on Keflex and doxycycline for left lower leg cellulitis. Patient presents slightly hypertensive at 153/87, pulse was bradycardic in the 50s. Respirations 16 he is afebrile and O2 sats are 97% on room air. Will give full dose aspirin, initiate cardiac work-up that will include a chest CTA for further evaluation of potential PE. Given his presentation, possible history of IV drug use, certainly other diagnoses such as septic emboli, myocarditis, endocarditis, pneumonia, bacteremia, ACS, pneumothorax, etc. are on the differential. We will attempt to obtain the records from [facility] from his ER visit on Friday. EKG was obtained at 1221, please see official report by Dr. Coombs. Sinus bradycardia, ventricular rate 52. Question of early repolarization versus minimal ST elevation 1 mm in V2, 1.5 mm in V2, and 1 mm in leads V3 through V6. Given the patient is having active chest pain with these changes, [facility] cardiology was contacted and requested a consult. Patient was given a single sublingual nitro, he reports his pain went from an 8 out of 10 down to a 3 out of 10. Attempted to provide him with a second nitro to see if his pain would be alleviated more but patient is refusing any medication at this point. A repeat EKG was performed at 1629, sinus bradycardia, ventricular to 54. Diffuse mild ST elevation, does not meet STEMI criteria. Please see Dr. Coombs' s official read Initial laboratory values have resulted and are unremarkable for obvious emergent process. Platelet count is elevated at 532, his ESR is 29, magnesium 1.7. Urinalysis trace intact blood, tox screen positive for methadone, alcohol level 28.3. Chest CTA reviewed, no PE. The nonspecific infiltrate clinically would appear to be more likely atelectasis over pneumonia. I received a call back from [facility] cardiology and personally spoke with AMARILYS Hernandez and Dr. Frias. We reviewed the patient's case, laboratory values that have resulted thus far and his EKG. They do recognize the elevation that we initially saw, question if there may be some degree of repolarization, does not meet STEMI criteria. Given he had chest pain that responded to nitro, his overall risk factors, they do believe that transfer to their facility is reasonable but they do not have any capacity to accept right now. They recommend monitoring at our facility, serial EKGs and troponins, and echocardio gram if at all possible,. Differential includes but not excluded to pericarditis, low suspicion for ACS, vasospasm, endocarditis, myocarditis. At this time they would recommend holding Eliquis, initiating a heparin drip but no bolus. Given his bradycardia they do not recommend initiating a beta-elo. I do recommend 2.5 mg oral amlodipine. The excepting physician tomorrow will be Dr. Talamantes. I highly encourage the patient to allow me to give another nitro given he had his chest pain decreased from an 8 down to a 3. Patient continues to refuse any additional medications. Upon reevaluation he reports that his pain is now gone completely and that he is very glad that he did not take any additional medications. At this point I explained to him my conversation with cardiology at [facility] and their recommendations as well. He is refusing any additional medication or treatment and initially does not want to be admitted to our facility for observation overnight and subsequently transferred to [facility]. I explained to the patient in length my concerns and the importance of getting the appropriate medical care. Symptoms could be consistent with multiple diagnoses including ACS, endocarditis, myocarditis, vasospasms, etc. I explained to him that if he decides to leave he would be leaving AGAINST MEDICAL ADVICE. Patient continues to decline any additional treatment but will talk with his family regarding the potential that he would allow us to admit him to our facility and subsequently transferred to [facility]. Patient spoke with his mother and continues to report that he is asymptomatic and his request to leave AGAINST MEDICAL ADVICE. Patient appears clinically sober, is of sound mind, and based upon my clinical examination has the capacity to make their own decisions. We have offered treatment options and discussed the the risks and benefits of these options and refusing these options, including and/or disability specific to the patient's pathology. Pt is able to discuss and understands the risks and benefits and alternatives of treatment and refusing treatment. We have tried to involve the patient's family. The patient still chooses to leave before evaluation and treatment can be completed AGAINST MEDICAL ADVICE. Medical Records Medical records reviewed: Yes I reviewed the patient's medical records. Imaging Data Radiologic Study: Attestation: I personally reviewed and interpreted this imaging study as follows: Imaging: CT Scan Radiologist's impression: Exam(s) CT CHEST PE CTA EXAM: CT CHEST PE CTA CLINICAL HISTORY: R sided chest pain, known PE. TECHNIQUE: Imaging Protocol: Axial CT angiography was performed with multi- slice acquisition and multi-planar and/or 3D reconstructions. CONTRAST MATERIAL: Intravenous: Omnipaque 350 Contrast volume:100 mL COMPARISON: CT CHEST ABD PELVIS WITH CONTRAST from 07/15/2017 FINDINGS: Tracheobronchial tree: Patent where visualized. Pulmonary parenchyma: There is an infiltrate in the left upper lobe. No architectural distortion. Pulmonary Arteries: No evidence of filling defect to suggest pulmonary emboli. Mediastinum and Debby: No dominant adenopathy or fluid collection. Visualized thyroid gland: Unremarkable. Pleura: No effusion or pneumothorax. Heart: The heart is not dilated. No coronary artery calcifications are seen. No pericardial effusion. Aorta: Thoracic aorta non-dilated. Mild atherosclerosis. No evidence of dissection. Upper abdomen: Unremarkable. Soft tissues: Unremarkable. Bones: Within normal limits for the patient's age. IMPRESSION: 1. No evidence of pulmonary embolism, thoracic aortic dissection or aneurysm. 2. Nonspecific infiltrate in the left upper lobe. This may represent atele ctasis or pneumonia. Please correlate clinically. 3. Results of this exam have been verbally communicated with provider. HPI General Mode of arrival: ambulatory . Date/Time Provider Initiated Documentation: 03/20/21 12:07 . Limitations to Documentation: no limitations . Information obtained by: patient . HPI Narrative: This is a 40-year-old gentleman, past medical history of polysubstance abuse, now taking methadone 95 mg daily, reports no drug use over the past 2 months, at that time his drug of choice was IV opiates and cocaine. He is presenting today complaining of right- sided chest pain that woke him from sleep at 2:00 this morning. The pain is an 8 out of 10, has been constant, aching, sharp, does not radiate anywhere. He was seen at [facility] on Friday, diagnosed with a DVT of the left leg as well as cellulitis, started on Eliquis as well as Keflex and doxycycline. Patient denies any other recent illness or trauma. He denies headache, neck pain, fever, cough, shortness of breath, abdominal pain, nausea, vomiting, change in bowel or bladder habits, numbness, tingling, weakness. Patient denies any significant cardiac history. He states that he had a complicated pneumonia which subsequently caused him to have a chest tube back in December. Patient has not taken any medication for his symptoms. He admits to drinking approximately 12 beers daily and smokes approximately 1 pack of cigarettes daily. Related Data Home Medications Medication Instructions Recorded Confirmed methadone 95 mg PO DAILY 03/31/14 03/20/21 aripiprazole 4 mg PO DAILY 10/09/20 03/20/21 bupropion HCl 150 mg PO DAILY 10/09/20 03/20/21 fluoxetine 80 mg PO DAILY 10/09/20 03/20/21 gabapentin 400 mg PO QID 10/09/20 03/20/21 hydroxyzine pamoate 50 mg PO Q4H PRN 10/09/20 10/09/20 loratadine 10 mg PO DAILY 10/09/20 03/20/21 melatonin 6 mg PO HS PRN 10/09/20 03/20/21 omeprazole 20 mg PO DAILY 10/09/20 03/20/21 topiramate 25 mg PO BID 10/09/20 03/20/21 Allergies Allergy/AdvReac Type Severity Reaction Status Date / Time No Known Allergies Allergy Unverified 03/20/21 12:17 General RAVEN: 5 Review of Systems Constitutional Constitutional: Denies fatigue, Denies fever(s) and Denies weakness ENT Ears, Nose, Mouth, and Throat: Denies neck pain Cardiovascular Cardiovascular: Reports chest pain and Denies dyspnea Respiratory Respiratory: Denies cough and Denies dyspnea Gastrointestinal Gastrointestinal: Denies abdominal pain, Denies nausea and Denies vomiting Genitourinary Genitourinary: Denies dysuria Musculoskeletal Musculoskeletal: Denies back pain, Denies neck pain, Denies numbness and Denies tingling Integumentary/Breasts Skin/Breast: Denies rash Neurologic Neurologic: Denies numbness, Denies tingling and Denies weakness Endocrine Endocrine: Denies fatigue Hematologic/Lymphatic Hematologic/Lymphatic: Denies easy bleeding and Denies easy bruising [facility] Social History Smoking/Tobacco Use Status: Current-Occasional Tobacco Type: cigarettes Smoking risk assessment performed?: Yes Alcohol Intake: current Alcohol Intake frequency: 3 or more drinks per day Alcohol type: beer Drug use: Binges Substance use type: heroin Do you feel safe at home: No Do you feel safe in your relationship?: Yes Exam Const General: cooperative and no acute distress Orientation: alert, awake and oriented x3 HENMT Head: normal to inspection, normocephalic and atraumatic Mouth: moist mucous membranes Eyes General: appearance normal, both eyes and all related structures Conjunctivae: conjunctivae normal Neck Neck: normal visual inspection, full ROM, trachea midline, supple and nontender Chest Chest: normal inspection of the chest and normal palpation of entire chest wall Resp Effort & Inspection: normal respiratory effort and able to speak in complete sentences Auscultation: clear to auscultation bilaterally Cardio Rate: bradycardic (56) Rhythm: regular rhythm GI Inspection: normal to inspection Palpation: soft, not firm, no guarding, no pulsatile masses and nontender Back/Spine/Pelvis Back: No back tenderness Skin Rashes: no rashes Neuro General: patient alert, patient awake, patient oriented x3, moves all extremities and no focal motor deficits Cognition: normal cognition Speech: speech normal Gait: normal gait Motor: muscle tone normal throughout Sensory Exam: no sensory deficits noted Extrem General: full ROM and capillary refill normal Right upper extremity: normal to inspection, full ROM and normal capillary refill Left upper extremity: normal to inspection, full ROM and normal capillary refill Right lower extremity: normal to inspection, full ROM and normal capillary refill Left lower extremity: full ROM and normal capillary refill Other: Left lower extremity with minimal edema, nonpitting. No palpable cord. Negative Homans' sign. Throughout the left lower extremity has multiple scabbed lesions, some appear excoriated. There is no surrounding erythema, warmth, discharge. Psych Appearance: grossly normal Mental Status: mental status grossly normal Critical Care Time Critical Care Time Critical Care Time: Yes Total Critical Care Time: 35 Attestation: Upon my evaluation, this patient had a high probability of clinically significant, life-threatening deterioration due to their current medical conditions, which required my direct attention, intervention, and personal management. I have personally provided greater than 30 minutes of critical care time exclusive of the time spend on separately billable procedures. Time includes obtaining a history, examining the patient, pulse oximetry, review of laboratory data, radiology results, discussion with consultants, arranging urgent treatment with development of a management plan, evaluation of patient's response to treatment, and monitoring for potential decompensation. Interventions were performed as documented above.
--- NOTE | 2021-03-20 12:30 | DI.CT_ITS ---
Exam(s) CT CHEST PE CTA EXAM: CT CHEST PE CTA CLINICAL HISTORY: R sided chest pain, known PE. TECHNIQUE: Imaging Protocol: Axial CT angiography was performed with multi-slice acquisition and mu lti-planar and/or 3D reconstructions. CONTRAST MATERIAL: Intravenous: Omnipaque 350 Contrast volume:100 mL COMPARISON: CT CHEST ABD PELVIS WITH CONTRAST from 07/15/2017 FINDINGS: Tracheobronchial tree: Patent where visualized. Pulmonary parenchyma: There is an infiltrate in the left upper lobe. No architectural distortion. Pulmonary Arteries: No evidence of filling defect to suggest pulmonary emboli. Mediastinum and Debby: No dominant adenopathy or fluid collection. Visualized thyroid gland: Unremarkable. Pleura: No effusion or pneumothorax. Heart: The heart is not dilated. No coronary artery calcifications are seen. No pericardial effusion. Aorta: Thoracic aorta non-dilated. Mild atherosclerosis. No evidence of dissection. Upper abdomen: Unremarkable. Soft tissues: Unremarkable. Bones: Within normal limits for the patient's age. IMPRESSION: 1. No evidence of pulmonary embolism, thoracic aortic dissection or aneurysm. 2. Nonspecific infiltrate in the left upper lobe. This may represent atelectasis or pneumonia. Plea se correlate clinically. 3. Results of this exam have been verbally communicated with provider. RADIATION DOSE DELIVERED: 510.03mGy.cm Total DLP DATA REPOSITORY: All CT scans at this facility are submitted to the National Radiology Data Registry (NRDR) Dose Index Registry (DIR) with the [employer] (A[employer]). RADIATION OPTIMIZATION: All CT scans at this facility use at least one of these dose optimization te chniques: automated exposure control; mA and/or kV adjustment per patient size (includes targeted exa ms where dose is matched to clinical indication); or iterative reconstruction.
--- NOTE | 2021-03-20 12:45 | RT.EKG_ITS ---
APPROVED REPORT Exam: Resting ECG Reason for Exam: chest pain Patient Location: E HR:54 bpm ECG Measurements Heart Rate 54 AXIS TN 145 P 39 QRSd 88 QRS 34 QT 520 T 36 QTc 492 Conclusion Sinus bradycardia...rate< 60 Probable left ventricular hypertrophy...multiple LVH criteria ST elevation suggests acute pericarditis...ST >0.06mV, ant/lat/inf sinus jude 54, nl axis, diffuse mild SYLVIE, does not meet STEMI criteria, non-diagnostic EKG
[2021-03-20 12:53] LABS: Abs Immature Grans 0.01 10^3/uL (0.0-0.06); Absolute Basophil Count 0.03 10^3/uL (0.0-0.2); Absolute Eosinophil Count 0.15 10^3/uL (0.0-0.7); Absolute Monocyte Count 0.41 10^3/uL (0.1-0.8); Absolute Neutrophil Count 2.61 10^3/uL (1.2-6.7); Basophils % 0.5; Eosinophils % 2.6; HCT 43.1 % (40.0-50.0); HGB 13.4 g/dL (13.5-17.5); Immature Grans % 0.2; Lymphocytes % 43.8; MCH 28.5 pg (27.0-33.0); MCHC 31.1 % (32.0-36.0); MCV 91.7 fL (80-95); Monocytes % 7.2; Neutrophils % 45.7; Nucleated RBC 0 %; Platelet Count 532 10^3/uL (130-400); RDW 14.7 % (11.8-14.1); RDW-SD 49.3 fL; WBC 5.71 10^3/uL (4.4-10.8)
[2021-03-20] MEDS: Omnipaque 350 MG/ML 100 ML BTL IJ (13:05)
[2021-03-20 13:07] LABS: ETHANOL BLOOD 28.3 mg/dL (<3)
[2021-03-20 13:11] LABS: INR 1.1 (0.9-1.1); Prothrombin Time 10.8 sec (9.3-11.0)
[2021-03-20 13:12] LABS: PTT Activated 25.3 sec (21.0-27.5)
[2021-03-20] MEDS: Aspirin 81 MG CHEW 324 MG CH (13:15)
[2021-03-20] MEDS: Normal Saline 1,000 ML 125 ML IV (13:15)
[2021-03-20 13:20] LABS: ALT 16 U/L (16-63); AST 18 U/L (15-37); Albumin 3.3 g/dL (3.4-5.0); Alkaline Phosphatase 105 U/L (46-116); Anion Gap 8.8 mmol/L (3-11); BUN 6 mg/dL (7-18); Bilirubin, Total 0.4 mg/dL (0.2-1.0); CO2 28.2 mmol/L (21.0-32.0); CREATININE 0.9 mg/dL (0.70-1.30); Chloride 101 mmol/L (98-107); Glucose 135 mg/dL (74-106); Magnesium 1.7 mg/dL (1.8-2.4); NT-proBNP 58 pg/mL (<300); Potassium 3.9 mmol/L (3.5-5.1); Sodium 138 mmol/L (136-145); Total Protein 8.3 g/dL (6.4-8.2)
[2021-03-20 13:21] LABS: Troponin I < 0.05 ng/mL (<0.06)
[2021-03-20 13:56] LABS: ESR 29 mm/hr (0-15)
[2021-03-20 14:04] LABS: C-Reactive Protein 0.15 mg/dL (0.0-0.3)
[2021-03-20 14:35] LABS: Bilirubin Negative (Negative); Blood Trace-intact (Negative); Clarity Clear (Clear); Glucose Negative (Negative); Ketones Negative (Negative); Leukocyte Esterase Negative (Negative); Nitrite Negative (Negative); Specific Gravity 1.015 (1.005-1.025); Urobilinogen 0.2 EU/dL (Up TO 0.2); pH 7.5 (5-8)
[2021-03-20 14:43] LABS: Bacteria Negative HPF (Negative); C & S Indicated? No; Casts Negative LPF (Negative); Crystals Negative HPF (Negative); Epithelial Cells Rare HPF (Negative); Mucus Negative (Negative); RBC 0-2 HPF (0-2); WBC Negative HPF (0-5)
[2021-03-20 14:50] LABS: *AMPHETAMINES SCREEN URINE Negative (Negative); *BARBITURATES SCREEN URINE Negative (Negative); *BENZODIAZEPINES SCREEN URINE Negative (Negative); Cannabinoids THC Negative (Negative); Cocaine Screen,Urine Negative (Negative); METHADONE URINE SCREEN Positive (Negative); OPIATES URINE SCREEN Negative (Negative); Tricyclic Antidepressants Negative (Negative)
== END 2021-03-20 15:20 | disposition left against medical advice (07) ==
PROVIDERS: Emergency Provider Physician Assistant; PCP Nurse Practitioner Family
DX: R07.9 Chest pain, unspecified (principal); Z53.29 Procedure and treatment not carried out because of patient's decision for other reasons
CPT/HCPCS: 36415; 71275; 80053; 80307; 85652; 93005; 99291; 80320; 81003; 81015; 83735; 83880; 84484; 85025; 85610; 85730; 86140; 93010; J3490

== ENCOUNTER 2021-06-29 08:35 | Emergency (ER) | payer MEDICAID, SELFPAY ==
[2021-06-29 08:49] VITALS: BP 139/89; PULSE 69; RESP 16; TEMP 36.8; O2SAT 98
--- NOTE | 2021-06-29 09:15 | DI.RAD_ITS ---
Exam(s) XR PORTABLE CHEST AP EXAM: XR PORTABLE CHEST AP CLINICAL HISTORY: wheezing, fever, shortness of breath TECHNIQUE: 2D digital imaging was performed of the chest. One view was obtained. An AP view was obt ained. COMPARISON: CR CHEST 2 VIEWS PA,LAT from 03/07/2012 CR CHEST 2 VIEWS PA,LAT from 03/07/2012 FINDINGS: MEDIASTINUM: Normal. HEART: Normal. PULMONARY VASCULATURE: Normal. LUNGS: There is a question of a small faint infiltrate in the left upper lobe. No focal consolidatin g infiltrates are seen. PLEURAL SPACE: No pleural effusion or pneumothorax. BONE:Within normal limits for the patient's age. OTHER FINDINGS:Elevation of the right hemidiaphragm. IMPRESSION: Question of a left upper lobe infiltrate. DATA REPOSITORY: RADIATION DOSE DELIVERED:
--- NOTE | 2021-06-29 09:39 | ED.GENADUL_ITS ---
Discharge Plan Disposition Patient Disposition: HOME Condition: Stable Discharge Details Clinical Impression: Pneumonia Primary Care Provider: None,None ED Provider: Lisa Reyna Home Meds and New Rx's Prescriptions: New doxycycline hyclate 100 mg tablet 100 mg PO BID Qty: 20 RF: 0 prednisone 20 mg tablet 40 mg PO DAILY Qty: 10 RF: 0 Combivent Respimat 20-100 mcg/actuation mist 1 puff inhalation Q6H Qty: 4 RF: 0 Continued methadone 10 MG/ML concentrate 95 mg PO DAILY RF: 0 fluoxetine 40 mg capsule 80 mg PO DAILY RF: 0 gabapentin 400 mg capsule 400 mg PO QID RF: 0 hydroxyzine pamoate 50 mg capsule 50 mg PO Q4H PRNRF: 0 topiramate 25 mg tablet 25 mg PO BID RF: 0 melatonin 3 mg tablet 6 mg PO HS PRNRF: 0 omeprazole 20 mg capsule,delayed release(DR/EC) 20 mg PO DAILY RF: 0 loratadine 10 mg tablet 10 mg PO DAILY RF: 0 bupropion HCl 150 mg tablet extended release 24 hr 150 mg PO DAILY RF: 0 aripiprazole 2 mg tablet 4 mg PO DAILY RF: 0 Discharge Instructions Instructions: Pneumonia (ED) Additional Instructions: Take prednisone as prescribed Use your inhaler as prescribed for wheezing Please return with chest pain, shortness of breath, if your oxygen saturation dipped below 90% Until your Covid swab result returns he should isolate and not leave home, not be exposed to have any outside of your immediate household and those around you should also quarantine until your test returned Dehydrated Stand Alone Forms: PENDING COVID-19 TESTING Discharge Data Discharge Date/Time-TO BE ENTERED AT DEPARTURE: 06/29/21 12:11 Medical Decision Making Patient is afebrile and nontoxic, he is not hypoxic, he does have some scant scattered wheezes Chest x-ray shows no infiltrates, Covid swab pending 7 Combivent with symptomatic improvement wheezing He is ambulatory without hypoxia, -Prednisone -Doxycycline Labs results returned to the [place] complaints, care management follow-up within the next week if he does not have established primary care physician Given low threshold to return with new or worsening complaints while this patient does have a history of DVT, I see no evidence of pulmonary embolism at this time He has not used IV drugs in the past month reportedly I have low suspicion for endocarditis or myocarditis clinically He has no chest pain He is discharged home in stable condition with stable vitals at this time Will need repeat EKG in 1 month Lab Data Lab results reviewed: Yes I reviewed the patient's lab results. HPI General Mode of arrival: ambulatory . Date/Time Provider Initiated Documentation: 06/29/21 08:40 . Limitations to Documentation: no limitations . Information obtained by: patient . HPI Narrative: This 40-year-old male presents with report of cough, myalgias, upper respiratory congestion for the past week. He states that he has numerous family members that are sick with flu symptoms. She is reportedly Covid vaccinated for the past several months. He denies any calf pain or swelling. He is an IV drug user, he has been sober for the past month. He is on methadone. He denies any new rashes or lesions. Denies chest pain or shortness of breath. Related Data Home Medications Medication Instructions Recorded Confirmed methadone 95 mg PO DAILY 03/31/14 03/20/21 aripiprazole 4 mg PO DAILY 10/09/20 03/20/21 bupropion HCl 150 mg PO DAILY 10/09/20 03/20/21 fluoxetine 80 mg PO DAILY 10/09/20 03/20/21 gabapentin 400 mg PO QID 10/09/20 03/20/21 hydroxyzine pamoate 50 mg PO Q4H PRN 10/09/20 10/09/20 loratadine 10 mg PO DAILY 10/09/20 03/20/21 melatonin 6 mg PO HS PRN 10/09/20 03/20/21 omeprazole 20 mg PO DAILY 10/09/20 03/20/21 topiramate 25 mg PO BID 10/09/20 03/20/21 doxycycline hyclate 100 mg PO BID #20 tab 06/29/21 ipratropium-albuterol [Combivent 1 puff INHALATION Q6H #4 g 06/29/21 Respimat] prednisone 40 mg PO DAILY #10 tab 06/29/21 Previous Rx's Medication Instructions Recorded doxycycline hyclate 100 mg PO BID #20 tab 06/29/21 ipratropium-albuterol [Combivent 1 puff INHALATION Q6H #4 g 06/29/21 Respimat] prednisone 40 mg PO DAILY #10 tab 06/29/21 Allergies Allergy/AdvReac Type Severity Reaction Status Date / Time No Known Allergies Allergy Unverified 03/20/21 12:17 General Stated Complaint: GenMedical RAVEN: 3 Review of Systems All systems reviewed & are unremarkable except as noted in HPI and below PFSH Social History Smoking/Tobacco Use Status: Current-Occasional Tobacco Type: cigarettes Smoking risk assessment performed?: Yes Alcohol Intake: current Alcohol Intake frequency: 3 or more drinks per day Alcohol type: beer Drug use: Binges Substance use type: marijuana Do you feel safe at home: No Do you feel safe in your relationship?: Yes Exam Const General: cooperative, comfortable and no acute distress Eyes Pupils: PERRL Chest Chest: normal inspection of the chest Resp Effort & Inspection: normal respiratory effort Auscultation: wheezes Cardio Rate: regular rate Rhythm: regular rhythm GI Inspection: normal to inspection Other: Nontender abdominal exam Skin General skin exam: no rashes or lesions noted Neuro General: patient alert and patient oriented x3 Cognition: normal cognition Course Vital Signs Vital signs: Vital Signs Temperature 36.8 C 06/29/21 08:49 Pulse 69 06/29/21 08:49 Respiratory Rate 16 06/29/21 08:49 Blood Pressure 139/89 06/29/21 08:49 Pulse Oximetry 98 06/29/21 08:49 Temperature 36.8 C 06/29/21 08:49 Temperature Source Skin 06/29/21 08:49 Pulse 69 06/29/21 08:49 Respiratory Rate 16 06/29/21 08:49 Respiratory Effort 06/29/21 08:54 Blood Pressure 139/89 06/29/21 08:49 Blood Pressure Position Sitting 06/29/21 08:49 Pulse Oximetry 98 06/29/21 08:49 Oxygen Delivery Method Room Air 06/29/21 08:49 Oxygen Flow Rate 0 06/29/21 08:49 Pain Level 8 06/29/21 08:49 Comment 06/29/21 08:49
[2021-06-29] MEDS: Acetaminophen 500 MG TAB 1000 MG PO (10:38)
[2021-06-29] MEDS: predniSONE 20 MG TAB 60 MG PO (10:38)
[2021-06-29 11:00] LABS: Abs Immature Grans 0.01 10^3/uL (0.0-0.06); Absolute Basophil Count 0.02 10^3/uL (0.0-0.2); Absolute Eosinophil Count 0.26 10^3/uL (0.0-0.7); Absolute Lymphocyte Count 2.41 10^3/uL (1.2-3.4); Absolute Monocyte Count 0.38 10^3/uL (0.1-0.8); Absolute Neutrophil Count 1.21 10^3/uL (1.2-6.7); Basophils % 0.5; Eosinophils % 6.1; HCT 42.7 % (40.0-50.0); HGB 13.4 g/dL (13.5-17.5); Immature Grans % 0.2; Lymphocytes % 56.2; MCH 27.7 pg (27.0-33.0); MCHC 31.4 % (32.0-36.0); MCV 88.4 fL (80-95); MPV 8.9 fL (8.0-11.0); Monocytes % 8.9; Neutrophils % 28.1; Nucleated RBC 0 %; Platelet Count 376 10^3/uL (130-400); RBC 4.83 10^6/uL (4.36-5.78); RDW 18.2 % (11.8-14.1); RDW-SD 58.7 fL; WBC 4.29 10^3/uL (4.4-10.8)
[2021-06-29 11:13] LABS: ALT 33 U/L (16-63); AST 38 U/L (15-37); Albumin 3.4 g/dL (3.4-5.0); Alkaline Phosphatase 93 U/L (46-116); Anion Gap 6.3 mmol/L (3-11); BUN 4 mg/dL (7-18); Bilirubin, Total 0.3 mg/dL (0.2-1.0); CO2 28.7 mmol/L (21.0-32.0); Calcium 8.9 mg/dL (8.5-10.1); Chloride 104 mmol/L (98-107); Glucose 80 mg/dL (74-106); Potassium 4.2 mmol/L (3.5-5.1); Sodium 139 mmol/L (136-145); Total Protein 8.2 g/dL (6.4-8.2)
[2021-06-29] MEDS: Albuterol/Ipratropium 3 ML UPD VIAL UPD (11:38)
--- NOTE | 2021-06-29 11:41 | NUR.NOTE ---
Nursing Note: Aunt Janki Paredes [phone]
--- NOTE | 2021-06-29 11:52 | NUR.NOTE ---
Nursing Note: Referral given to Care Management to obtain PCP, appt within 1 week, for pneumonia. Margarita Cruz
[2021-06-29 12:07] VITALS: BP 150/96; PULSE 63; RESP 14; TEMP 36.9; O2SAT 99
[2021-06-30 22:13] LABS: COVID-19 RT-PCR UVMMC Result Positive (Negative)
== END 2021-06-29 12:11 | disposition home or self-care (01) ==
PROVIDERS: Emergency Provider Physician Assistant
DX: U07.1 COVID-19 (principal); J12.82 Pneumonia due to coronavirus disease 2019; R05 Cough; M79.10 Myalgia, unspecified site; F17.210 Nicotine dependence, cigarettes, uncomplicated; Z20.822 Contact with and (suspected) exposure to COVID-19
CPT/HCPCS: 36415; 80053; 94640; 99284; U0003; 71045; 85025; J7512; J7620

== ENCOUNTER 2021-07-17 02:31 | Outpatient (CLI) | payer MEDICAID, SELFPAY ==
--- NOTE | 2021-07-17 11:41 | DI.RAD_ITS ---
Exam(s) XR CHEST 2V PA LATERAL EXAM: XR CHEST 2V PA LATERAL CLINICAL HISTORY: PERSISTENT COUGH FOLLOWING COVID,R05.3 TECHNIQUE: 2D digital imaging was performed of the chest. Images were obtained. PA and lateral v iews were obtained. COMPARISON: CT CT CHEST PE CTA from 03/20/[address] CHEST PE CTA from 03/20/2021 CR XR PORTABLE CHEST AP from 06/29/2021 CR XR PORTABLE CHEST AP from 06/29/2021 FINDINGS: MEDIASTINUM: Normal. HEART: Normal. PULMONARY VASCULATURE: Normal. LUNGS: There is a persistent faint opacity in the left upper lobe. The lungs are otherwise clear. PLEURAL SPACE: No pleural effusion or pneumothorax. BONE:Within normal limits for the patient's age. OTHER FINDINGS:Normal. IMPRESSION: Persistent left upper lobe opacity. CT scan of the chest is recommended to evaluate for residual inf iltrate or scarring. DATA REPOSITORY: RADIATION DOSE DELIVERED:
== END 2021-07-17 02:51 ==
PROVIDERS: Visit Provider Physician Assistant
DX: R05.3 Chronic cough (principal); Z86.16 Personal history of COVID-19; R91.8 Other nonspecific abnormal finding of lung field
CPT/HCPCS: 71046

== ENCOUNTER 2021-08-01 10:40 | Outpatient (CLI) | payer MEDICAID, SELFPAY ==
--- NOTE | 2021-08-03 14:04 | W.ANESVAS ---
Peripheral IV Placement Date Performed: 08/03/21 Procedure Time: 13:50 Requesting Provider: Andres Holguin Procedure Location: Radiology Sedation Given (Indicate Dose Given): No Sedation given Patient Mental Status: Awake Laterality: Right Insertion Site: Antecubital Size & Type: 20 ga. Dressing: IV Dressing Placed Ultrasound: Sterile probe cover and gel used Ultrasound Image Saved?: Yes Number of Attempts (See previous attempts in note section): 1 Procedure Tolerated: No Complications Procedure Outcome: Successful Performed By: jackelyn
== END 2021-08-03 01:21 | disposition home or self-care (01) ==
LOC: DI 08-06 09:49 → LBO 08-08 10:41
PROVIDERS: Visit Provider Physician Assistant
DX: R05.3 Chronic cough (principal)
CPT/HCPCS: 82565

== ENCOUNTER 2021-08-03 14:55 | Outpatient (REF) | payer MEDICAID, SELFPAY ==
[2021-08-03 14:20] LABS: CREATININE 1.1 mg/dL (0.70-1.30)
== END 2021-08-03 14:56 | disposition home or self-care (01) ==
LOC: LBN 14:55
PROVIDERS: Visit Provider Physician Assistant
DX: R05.8 Other specified cough (principal); Z01.812 Encounter for preprocedural laboratory examination
CPT/HCPCS: 82565

== ENCOUNTER 2021-08-13 01:49 | Outpatient (CLI) | payer MEDICAID, SELFPAY ==
--- NOTE | 2021-08-13 | DI.CT_ITS ---
Exam(s) CT CHEST W EXAM: CT CHEST W CLINICAL HISTORY: PERSISTENT COUGH, R05.3. TECHNIQUE: Multi planar reconstructions were performed. CONTRAST MATERIAL: Omnipaque 350; 75 cc COMPARISON: CT CT CHEST PE CTA from 03/20/2021 FINDINGS: CHEST: LUNGS: Compared to CT scan 03/20/2021 there is again noted significant infiltrate left upper lobe whi ch has not decreased. Mild subpleural increased markings are again noted in the anterior basal segme nt left lower lobe. No pleural effusion. In the opposite-right lung there is infiltrate evident which was not previously present, similar in a ppearance to the opposite-left side but slightly less in amount. In the left lower lobe there is mendoza e pleural based infiltrate in the posterior basal segment, slightly more so than previous. No pleura l effusion on either side. There are no significant focal findings in the trachea and mainstem bronc hi. MEDIASTINUM: There is no hilar nor mediastinal adenopathy. Visualized thyroid unremarkable. CARDIAC: Heart size is normal. There is no pericardial effusion.Caliber of the thoracic aorta is wit hin normal limits. VISUALIZED UPPER ABDOMEN:There are no significant adrenal masses. Hepatic steatosis again noted. OSSEOUS: No significant osseous lesions.. IMPRESSION: 1. Compared to the prior CT scan of 03/20/2021 there has been no improvement in the left upper lobe i nfiltrate and there has been development of similar appearing infiltrate in the right upper lobe. Ot her findings remain unchanged in the anterior basal segment left lower lobe as well as minimal increa se in the pleural based infiltrate in the posterior basal segment of the right lower lobe. 2. There are no pleural effusions nor intrathoracic adenopathy. 3. Hepatic steatosis again noted. RADIATION DOSE DELIVERED: 671.96mGy.cm Total DLP DATA REPOSITORY: All CT scans at this facility are submitted to the National Radiology Data Registry (NRDR) Dose Index Registry (DIR) with the [employer] (A[employer]). RADIATION OPTIMIZATION: All CT scans at this facility use at least one of these dose optimization te chniques: automated exposure control; mA and/or kV adjustment per patient size (includes targeted exa ms where dose is matched to clinical indication); or iterative reconstruction.
--- NOTE | 2021-08-13 11:18 | W.ANESVAS ---
Peripheral IV Placement Date Performed: 08/13/21 Procedure Time: 10:16 Requesting Provider: Andres Holguin Procedure Location: Operating Room Sedation Given (Indicate Dose Given): No Sedation given Patient Mental Status: Awake Laterality: Right Insertion Site: Antecubital Size & Type: 20 ga. Dressing: IV Dressing Placed Ultrasound: Sterile probe cover and gel used Ultrasound Image Saved?: Yes Number of Attempts (See previous attempts in note section): 1 Procedure Tolerated: No Complications and Patient tolerated well Procedure Outcome: Successful Performed By: Duy Mcguire
[2021-08-13] MEDS: Omnipaque 350 MG/ML 100 ML BTL IJ (11:29)
[2021-08-13] MEDS: Normal Saline - Diluent 50 ML VIAL IV (11:30)
== END 2021-08-13 02:09 ==
PROVIDERS: Visit Provider Physician Assistant
DX: R05.3 Chronic cough (principal); R91.8 Other nonspecific abnormal finding of lung field; K76.0 Fatty (change of) liver, not elsewhere classified
CPT/HCPCS: 71260; J3490

== ENCOUNTER 2021-09-03 15:11 | Outpatient (REF) | payer MEDICAID, SELFPAY ==
[2021-09-07 01:05] LABS: Cocaine 356 ng/mL (Cutoff: 50); Cocaine Interpretation Positive.
== END 2021-09-03 15:12 | disposition home or self-care (01) ==
LOC: NCHCN 15:11
PROVIDERS: Visit Provider Family Medicine
DX: F14.10 Cocaine abuse, uncomplicated (principal)
CPT/HCPCS: 80353

== ENCOUNTER 2021-10-29 11:40 | Emergency (ER) | payer MEDICAID, SELFPAY ==
[2021-10-29 12:20] VITALS: BP 155/95; PULSE 69; RESP 15; TEMP 36.6; O2SAT 96
--- NOTE | 2021-10-29 13:47 | W.ED.GENAD ---
Discharge Plan Disposition Patient Disposition: HOME Condition: Improving Discharge Details Clinical Impression: Nausea & vomiting, Methadone withdrawal Primary Care Provider: None,None ED Provider: Macie Talley Home Meds and New Rx's Prescriptions: Continued methadone 10 MG/ML concentrate 95 mg PO DAILY RF: 0 fluoxetine 40 mg capsule 80 mg PO DAILY RF: 0 gabapentin 400 mg capsule 400 mg PO QID RF: 0 hydroxyzine pamoate 50 mg capsule 50 mg PO Q4H PRNRF: 0 topiramate 25 mg tablet 25 mg PO BID RF: 0 melatonin 3 mg tablet 6 mg PO HS PRNRF: 0 omeprazole 20 mg capsule,delayed release(DR/EC) 20 mg PO DAILY RF: 0 loratadine 10 mg tablet 10 mg PO DAILY RF: 0 bupropion HCl 150 mg tablet extended release 24 hr 150 mg PO DAILY RF: 0 aripiprazole 2 mg tablet 4 mg PO DAILY RF: 0 Discharge Instructions Instructions: Metoclopramide (By mouth), Acute Nausea and Vomiting (ED) Additional Instructions: Your labs are reassuring here today. Please continue to encourage hydration. You may use the Reglan be given to you to see me for any recurrent nausea or vomiting. You may take 1 tab every 6 hours as needed for any recurrence of your symptoms. In regards to your methadone, plan to treat follow-up with [facility] tomorrow morning. Please follow-up with them as previously discussed. Please continue to work with the monomer recovery supervisor, you have been given their information and may contact them anytime. Would like to follow-up with your primary care in 2 weeks for reevaluation. Referral for local primary care has been sent. If you develop fever/chills, pain, neck pain, shortness of breath or any new/worsening symptoms or seek care urgently once again. Discharge Data Discharge Date/Time-TO BE ENTERED AT DEPARTURE: 10/29/21 17:16 Medical Decision Making <SYL Edmonds - Last Filed: 10/31/21 08:08> 41-year-old gentleman presents to the ER reporting nausea, vomiting, decreasing his overall alcohol intake. He has missed his last 3 doses of methadone. Clinically he appears well, nontoxic, afebrile, no vomiting, abdomen is soft, nontender. Plan is to obtain IV access, give IV Reglan and fluid as well as obtain routine screening laboratory values. I will reach out to his methadone clinic to discuss his visit and dosing. I will also request that our monomer recovery supervisor talk with the patient given his polysubstance abuse. Patient is agreeable to this plan and has no additional questions or concerns CBC and CMP do not reveal any obvious emergent process. Lipase 36. Patient received his IV fluid and Zofran, reports nausea has resolved completely and is feeling much better. I contacted the [facility] program, Dr. Shore confirmed that his dose is 90 mg but he has missed his last 3 days they recommend giving a single dose of 45 mg now but first obtaining a urine tox screen and if positive for narcotics or benzos, give less than 45, otherwise he can follow-up with them tomorrow Patient discussed options with the monomer recovery supervisor. He has no additional questions or concerns with them and will decide whether or not to follow-up as an outpatient. I was able to update his father regarding his condition here in the ER and treatment plan. Awaiting UDS, methadone dose and discharge. Patient responded nicely to Reglan here in the ER and can certainly be discharged with Reglan. Medical Records Medical records reviewed: Yes I reviewed the patient's medical records. <SYL Hays - Last Filed: 10/29/21 17:17> [facility]commended [facility]. Advised patient to go home with Reglan for recurrent N/V. Patient spoke with the monomer recovery supervisor. Per recommendation from Dr. Shore, will give smaller dose. Will give 40mg Methadone and have him f/u with [facility] tomorrow. HPI <SYL Edmonds - Last Filed: 10/31/21 08:08> General Mode of arrival: ambulatory. Date/Time Provider Initiated Documentation: 10/29/21 12:38. Limitations to Documentation: no limitations. Information obtained by: patient. HPI Narrative: This is a 41-year-old gentleman, past medical history of polysubstance abuse, on methadone, GERD, presenting to the ER reporting that he has decreased his alcohol intake over the past several days, only had 1 beer this morning, reporting dehydration, nausea, vomiting, shortness of breath after vomiting multiple times, for the past 3 days. Patient states that he has been vaccinated for COVID, had a COVID a few months ago, but would like to be tested again today. He denies any recent illness or trauma, fever, headache, chest pain, abdominal pain, diarrhea, constipation. Patient states that he attempted to go to the [facility] program today but they were closed because of the holiday. Related Data Home Medications Medication Instructions Recorded Confirmed methadone 95 mg PO DAILY 03/31/14 10/29/21 aripiprazole 4 mg PO DAILY 10/09/20 10/29/21 bupropion HCl 150 mg PO DAILY 10/09/20 10/29/21 fluoxetine 80 mg PO DAILY 10/09/20 10/29/21 gabapentin 400 mg PO QID 10/09/20 10/29/21 hydroxyzine pamoate 50 mg PO Q4H PRN 10/09/20 10/29/21 loratadine 10 mg PO DAILY 10/09/20 10/29/21 melatonin 6 mg PO HS PRN 10/09/20 10/29/21 omeprazole 20 mg PO DAILY 10/09/20 10/29/21 topiramate 25 mg PO BID 10/09/20 10/29/21 Allergies Allergy/AdvReac Type Severity Reaction Status Date / Time No Known Allergies Allergy Unverified 10/29/21 12:23 General Stated Complaint: Nausea/Vomit/Diar RAVEN: 3 Review of Systems <SYL Edmonds - Last Filed: 10/31/21 08:08> Constitutional Constitutional: Denies fever(s), Denies headache(s) and Denies weakness Eyes Eyes: Denies change in vision ENT Ears, Nose, Mouth, and Throat: Denies headache(s) and Denies neck pain Cardiovascular Cardiovascular: Denies chest pain Respiratory Respiratory: Denies cough Gastrointestinal Gastrointestinal: Denies abdominal pain, Reports nausea and Reports vomiting Musculoskeletal Musculoskeletal: Denies back pain and Denies neck pain Integumentary/Breasts Skin/Breast: Denies rash Neurologic Neurologic: Denies headache(s) and Denies weakness [facility] <SYL Edmonds - Last Filed: 10/31/21 08:08> All Active Problems (Updated 10/29/21 @ 17:06 by SYL Hays) Chest pain (Acute) Pneumonia (Acute) Nausea & vomiting (Acute) Methadone withdrawal (Acute) Suicidal ideation (Acute) Bacteremia (Acute) Cocaine withdrawal (Acute) Osteomyelitis of lower leg, left, acute (Acute) Suicide ideation (Acute) Polysubstance abuse (Acute) Social History Smoking/Tobacco Use Status: Former Tobacco Use Smoking risk assessment performed?: Yes Alcohol Intake: current Alcohol Intake frequency: 3 or more drinks per day Alcohol type: beer Drug use: Daily Substance use type: marijuana Do you feel safe at home: Yes Do you feel safe in your relationship?: Yes Exam <SYL Edmonds - Last Filed: 10/31/21 08:08> Const General: cooperative, healthy appearing, comfortable and no acute distress Orientation: alert, awake and oriented x3 HENMT Head: normal to inspection, normocephalic and atraumatic Mouth: moist mucous membranes abnormal (Slightly dry) Eyes General: appearance normal, both eyes and all related structures Conjunctivae: conjunctivae normal Neck Neck: normal visual inspection, full ROM, trachea midline, supple and nontender Resp Effort & Inspection: normal respiratory effort and able to speak in complete sentences Auscultation: clear to auscultation bilaterally Cardio Rate: regular rate Rhythm: regular rhythm GI Palpation: soft, not firm, no guarding, no pulsatile masses and nontender Auscultation: normal bowel sounds Back/Spine/Pelvis Back: No back tenderness Skin General skin exam: no rashes or lesions noted Neuro General: patient alert, patient awake, patient oriented x3, moves all extremities and no focal motor deficits Cognition: normal cognition Speech: speech normal Gait: normal gait Sensory Exam: no sensory deficits noted Psych Appearance: grossly normal Mental Status: mental status grossly normal Course <SYL Edmonds - Last Filed: 10/31/21 08:08> Vital Signs Vital signs: Vital Signs Temperature 36.6 C 10/29/21 12:20 Pulse 69 10/29/21 12:20 Respiratory Rate 15 10/29/21 12:20 Blood Pressure 155/95 H 10/29/21 12:20 Pulse Oximetry 96 10/29/21 12:20 Temperature 36.6 C 10/29/21 12:20 Temperature Source Temporal Artery Scan 10/29/21 12:20 Pulse 69 10/29/21 12:20 Respiratory Rate 15 10/29/21 12:20 Respiratory Effort Non-Labored 10/29/21 12:26 Blood Pressure 155/95 H 10/29/21 12:20 Blood Pressure Position Supine 10/29/21 12:20 Pulse Oximetry 96 10/29/21 12:20 Oxygen Delivery Method Room Air 10/29/21 12:20 Oxygen Flow Rate 0 10/29/21 12:20 Pain Level 8 10/29/21 12:20 Comment 10/29/21 12:20 Sign Out <SYL Edmonds - Last Filed: 10/31/21 08:08> Sign Out Data: Sign Out Comment: Awaiting UDS, methadone dosing, and discharge Last updated by Colton Ortega PA at 10/29/21 16:08 PAWSS <SYL Edmonds - Last Filed: 10/31/21 08:08> Have you Been Recently Intoxicated or Drunk Within the Last 30 days?: Yes Have you Ever Experienced Previous Episodes of Alcohol Withdrawal?: Yes Have you ever Experienced Withdrawal Seizures?: Yes Have you ever Experienced Delirium Tremens(DT)s?: Yes Have you ever undergone Alcohol Rehabilitation Treatment (i.e, inpt ot outpatient treatment programs)?: Yes Have you ever Experienced Blackouts?: No Have you ever Combined Alcohol with other Downers within the last 90 days?: No Have you ever Combined Alcohol with any other Substance of Abuse during the last 90 days?: No Positive Blood Alcohol level on Presentation? [PCS.BAL]: No Evidence of Increased Autonomic Activity (i.e. HR>120, tremor, sweating, agitation, nausea)?: Yes Result: 6
[2021-10-29 13:59] VITALS: BP 161/87; PULSE 57; RESP 14; TEMP 36.6; O2SAT 96
[2021-10-29] MEDS: Normal Saline 1,000 ML 1000 ML IV (14:08)
[2021-10-29] MEDS: Metoclopramide 10 MG/2 ML VIAL IVP (14:08)
[2021-10-29 14:18] LABS: Abs Immature Grans 0.03 10^3/uL (0.0-0.06); Absolute Basophil Count 0.02 10^3/uL (0.0-0.2); Absolute Eosinophil Count 0.06 10^3/uL (0.0-0.7); Absolute Lymphocyte Count 1.32 10^3/uL (1.2-3.4); Absolute Monocyte Count 0.71 10^3/uL (0.1-0.8); Absolute Neutrophil Count 6.53 10^3/uL (1.2-6.7); Basophils % 0.2; Eosinophils % 0.7; HCT 41.3 % (40.0-50.0); HGB 13.2 g/dL (13.5-17.5); Immature Grans % 0.3; Lymphocytes % 15.2; MCH 28.1 pg (27.0-33.0); MCV 87.9 fL (80-95); Monocytes % 8.2; Neutrophils % 75.4; Nucleated RBC 0 %; Platelet Count 404 10^3/uL (130-400); RDW 16.9 % (11.8-14.1); RDW-SD 53.1 fL; WBC 8.67 10^3/uL (4.4-10.8)
--- NOTE | 2021-10-29 14:21 | NUR.NOTE ---
Patient gave the ED permission to give his father, Kobe information regarding this visit. Margarita Cruz Nursing Note:
[2021-10-29 14:32] LABS: ALT 20 U/L (16-63); AST 27 U/L (15-37); Albumin 3.1 g/dL (3.4-5.0); Alkaline Phosphatase 117 U/L (46-116); Anion Gap 11.1 mmol/L (3-11); BUN 7 mg/dL (7-18); Bilirubin, Total 0.4 mg/dL (0.2-1.0); CO2 25.9 mmol/L (21.0-32.0); CREATININE 0.8 mg/dL (0.70-1.30); Calcium 9.5 mg/dL (8.5-10.1); Chloride 99 mmol/L (98-107); ETHANOL BLOOD 6.7 mg/dL (<10); Glucose 107 mg/dL (74-106); Lipase 36 U/L (73-393); Potassium 3.7 mmol/L (3.5-5.1); Sodium 136 mmol/L (136-145); Total Protein 8.7 g/dL (6.4-8.2)
[2021-10-29 15:50] LABS: Bilirubin Small (Negative); Blood Negative (Negative); Clarity Clear (Clear); Glucose 100 mg/dL (Negative); Ketones 40 mg/dL (Negative); Leukocyte Esterase Negative (Negative); Nitrite Negative (Negative); Specific Gravity >= 1.030 (1.005-1.025)
[2021-10-29 15:57] LABS: Bacteria Negative HPF (Negative); C & S Indicated? No; Casts Negative LPF (Negative); Crystals Negative HPF (Negative); Epithelial Cells Rare HPF (Negative); Mucus Heavy (Negative); Other Cells Negative (Negative); WBC Negative HPF (0-5)
[2021-10-29 16:19] LABS: *AMPHETAMINES SCREEN URINE Negative (Negative); *BARBITURATES SCREEN URINE Negative (Negative); *BENZODIAZEPINES SCREEN URINE Negative (Negative); Cannabinoids THC Positive (Negative); Cocaine Screen,Urine Positive (Negative); METHADONE URINE SCREEN Positive (Negative); OPIATES URINE SCREEN Negative (Negative); Tricyclic Antidepressants Negative (Negative)
[2021-10-29] MEDS: Methadone Liquid 10 MG/ML 40 MG PO (16:54)
[2021-10-29 16:55] VITALS: BP 156/91; PULSE 64; RESP 16; TEMP 36.9; O2SAT 95
[2021-10-29] MEDS: Metoclopramide 10 MG TAB 30 MG PO (17:13)
--- NOTE | 2021-10-29 17:15 | NUR.NOTE ---
Referral given to Care Management to establish care with PCP with routine follow up. Margarita Cruz Nursing Note:
[2021-10-29 17:28] VITALS: BP 156/91; PULSE 64; RESP 16; TEMP 36.9; O2SAT 95
--- NOTE | 2021-10-30 09:00 | NUR.NOTE ---
[facility] called requesting the documentation of methadone given yesterday. I faxed the MAR to [facility]. Margairta Cruz Nursing Note:
[2021-10-30 11:29] LABS: COVID-19 RT-PCR UVMMC Result Negative (Negative)
== END 2021-10-29 17:16 | disposition home or self-care (01) ==
PROVIDERS: Physician Assistant; Emergency Provider Physician Assistant
DX: F11.23 Opioid dependence with withdrawal (principal); F14.10 Cocaine abuse, uncomplicated; Z20.822 Contact with and (suspected) exposure to COVID-19
CPT/HCPCS: 80053; 80307; 83690; 96361; 96374; 99284; U0003; 80320; 81003; 81015; 85025; J2765

== ENCOUNTER 2021-12-03 16:03 | Outpatient (REF) | payer MEDICAID, SELFPAY ==
[2021-12-08 15:21] LABS: Gabapentin, Urine 218.4 ug/mL
== END 2021-12-03 16:04 | disposition home or self-care (01) ==
LOC: NCHCN 16:03
PROVIDERS: Visit Provider Family Medicine
DX: F11.20 Opioid dependence, uncomplicated (principal)
CPT/HCPCS: 80171; 80307

== ENCOUNTER 2022-02-12 13:18 | Emergency (ER) | payer MEDICAID, SELFPAY ==
[2022-02-12 13:22] VITALS: BP 165/99; PULSE 60; RESP 17; TEMP 36.6; O2SAT 99
[2022-02-12] MEDS: Ketorolac 15 MG/ML VIAL IVP (14:18)
[2022-02-12] MEDS: diazePAM 10 MG/2 ML SYR 5 MG IM (14:18)
[2022-02-12 14:29] VITALS: RESP 18
--- NOTE | 2022-02-12 16:15 | NUR.NOTE ---
Nursing Note: Referral given to Care Management needs PCP, to establish care,routing follow up. Margarita Cruz
--- NOTE | 2022-02-12 21:24 | ED.GENADUL_ITS ---
Discharge Plan Disposition Patient Disposition: AGAINST MEDICAL ADVICE Condition: Stable Discharge Details Clinical Impression: Myalgia Primary Care Provider: None,None ED Provider: Lisa Reyna Home Meds and New Rx's Prescriptions: Continued methadone 10 MG/ML concentrate 45 mg PO DAILY 0RF fluoxetine 40 mg capsule 80 mg PO DAILY 0RF Label Comments: TK 2 CS PO QAM hydroxyzine pamoate 50 mg capsule 50 mg PO Q4H PRN0RF Label Comments: TK 1 C PO Q 4 H PRN topiramate 25 mg tablet 25 mg PO BID 0RF Label Comments: TAKE 1 TABLET BY MOUTH TWICE DAILY melatonin 3 mg tablet 6 mg PO HS [id number] Label Comments: TK 2 TS PO HS omeprazole 20 mg capsule,delayed release(DR/EC) 20 mg PO DAILY 0RF Label Comments: TK 1 C PO D AC loratadine 10 mg tablet 10 mg PO DAILY 0RF Label Comments: TK 1 T PO QD Discharge Instructions Instructions: Musculoskeletal Pain (ED) Additional Instructions: Please follow-up with primary care physician or return to the emergency department for reassessment Should you develop fever, chills, or with any new or worsening complaints I recommend you return immediately to the emergency department, you are leaving prior to having complete document, you are leaving against recommendations and I do recommend that you follow-up urgently with your doctor Discharge Data Discharge Date/Time-TO BE ENTERED AT DEPARTURE: 02/12/22 15:42 Medical Decision Making Unfortunately this patient had IV attempts x8 that were unsuccessful Specimen attending physician, Dr. Farncisco and she was willing to make an attempt, however patient is now declining any additional attempts at IV placement or laboratory evaluation Patient is requesting discharge home Patient made aware that he has not been fully evaluated and that he is at risk for serious illness and further deterioration and even He will sign out AGAINST MEDICAL ADVICE and he is given very low threshold to retu for reassessment at his earliest ability He is alert, oriented, of decisional capacity at time of discharge home and all conversations were had in the presence of his father in the emergency department Medical Records Medical records reviewed: Yes I reviewed the patient's medical records. HPI General Date/Time Provider Initiated Documentation: 02/12/22 13:32 . HPI Narrative: This 41-year-old gentleman with history of drug addiction, methadone dependency, bacteremia, presents with report of generalized myalgias. Patient states he started about a week ago and is progressively worsened. He states that his methadone was decreased by 50% approximately 2 weeks ago and he was removed from his Neurontin. He denies any current drug abuse and states he has not injected for the past several years. He denies any fever or chills. He states the pain is exacerbated with any sort of movement. He denies any chest pain and shortness of breath. He denies any upper respiratory symptoms or new medications. Denies recent tick bites Related Data Home Medications Medication Instructions Recorded Confirmed methadone 10 mg/mL oral concentrate 45 mg PO DAILY 03/31/14 10/29/21 fluoxetine 40 mg capsule 80 mg PO DAILY 10/09/20 10/29/21 hydroxyzine pamoate 50 mg capsule 50 mg PO Q4H PRN 10/09/20 10/29/21 loratadine 10 mg tablet 10 mg PO DAILY 10/09/20 10/29/21 melatonin 3 mg tablet 6 mg PO HS PRN 10/09/20 10/29/21 omeprazole 20 mg capsule,delayed 20 mg PO DAILY 10/09/20 10/29/21 release topiramate 25 mg tablet 25 mg PO BID 10/09/20 10/29/21 Allergies Allergy/AdvReac Type Severity Reaction Status Date / Time No Known Allergies Allergy Unverified 02/12/22 13:26 General Stated Complaint: GenMedical RAVEN: 3 Review of Systems All systems reviewed & are unremarkable except as noted in HPI and below PFSH All Active Problems (Updated 02/12/22 @ 15:33 by SYL Smalls) Chest pain (Acute) Pneumonia (Acute) Myalgia (Acute) Suicidal ideation (Acute) Bacteremia (Acute) Cocaine withdrawal (Acute) Osteomyelitis of lower leg, left, acute (Acute) Suicide ideation (Acute) Polysubstance abuse (Acute) Social History Smoking/Tobacco Use Status: Former Tobacco Use Smoking risk assessment performed?: Yes Alcohol Intake: current Alcohol Intake frequency: 3 or more drinks per day Alcohol type: beer Drug use: Daily Substance use type: marijuana Do you feel safe at home: Yes Do you feel safe in your relationship?: Yes Exam Const General: cooperative Other: Agitated HENMT Head: normal to inspection Mouth: oral mucosae normal Other: Uvula midline Eyes Sclera: sclerae normal Pupils: PERRL Other: PERRLA Neck Other: No meningismus Resp Effort & Inspection: normal respiratory effort Auscultation: clear to auscultation bilaterally Cardio Rate: regular rate Rhythm: regular rhythm Other: No murmur GI Other: Nontender abdominal exam Skin General skin exam: no rashes or lesions noted Neuro General: patient alert and patient oriented x3 Cranial Nerves: CN's II-XI intact bilaterally Extrem General: normal to inspection Other: Distal pulses intact, strength and sensation intact distally Course Vital Signs Vital signs: Vital Signs Temperature 36.6 C 02/12/22 13:22 Pulse 60 02/12/22 13:22 Respiratory Rate 17 02/12/22 13:22 Blood Pressure 165/99 H 02/12/22 13:22 Pulse Oximetry 99 02/12/22 13:22 Temperature 36.6 C 02/12/22 13:22 Temperature Source Oral 02/12/22 13:22 Pulse 60 02/12/22 13:22 Respiratory Rate 18 02/12/22 14:29 Respiratory Effort Non-Labored 02/12/22 14:29 Respiratory Depth Normal 02/12/22 14:29 Respiratory Pattern Normal 02/12/22 14:29 Blood Pressure 165/99 H 02/12/22 13:22 Blood Pressure Position Supine 02/12/22 13:22 Pulse Oximetry 99 02/12/22 13:22 Oxygen Delivery Method Room Air 02/12/22 13:22 Oxygen Flow Rate 0 02/12/22 13:22 Pain Level 10 02/12/22 13:22 PAWSS Have you Been Recently Intoxicated or Drunk Within the Last 30 days?: No Have you Ever Experienced Previous Episodes of Alcohol Withdrawal?: Yes Have you ever Experienced Withdrawal Seizures?: No Have you ever Experienced Delirium Tremens(DT)s?: Yes Have you ever undergone Alcohol Rehabilitation Treatment (i.e, inpt ot outpatient treatment programs)?: Yes Have you ever Experienced Blackouts?: No Have you ever Combined Alcohol with other Downers within the last 90 days?: No Have you ever Combined Alcohol with any other Substance of Abuse during the last 90 days?: No Result: 3
== END 2022-02-12 15:42 | disposition left against medical advice (07) ==
LOC: ER 15:43
PROVIDERS: Emergency Provider Physician Assistant
DX: M79.10 Myalgia, unspecified site (principal); F11.20 Opioid dependence, uncomplicated
CPT/HCPCS: 80053; 82550; 83690; 96372; 96374; 99284; 83735; 85025; 99283; J1885; J3360

== ENCOUNTER 2022-02-15 17:03 | Emergency (ER) | payer MEDICAID, SELFPAY ==
[2022-02-15 17:16] VITALS: BP 120/90; PULSE 79; RESP 18; TEMP 36; O2SAT 96
[2022-02-15 18:08] LABS: Bilirubin Negative (Negative); Blood Negative (Negative); Clarity Clear (Clear); Glucose Negative (Negative); Ketones Negative (Negative); Leukocyte Esterase Negative (Negative); Nitrite Negative (Negative); Specific Gravity <= 1.005 (1.005-1.025); Urobilinogen 0.2 EU/dL (Up TO 0.2); pH 6.5 (5-8)
--- NOTE | 2022-02-15 18:31 | NUR.NOTE ---
pt was brought to rm 1 and placed in a gown . his legs were not red. ( his initial complaint ) he was in rm 1 on the monitor for approx. five or ten min when his mother asked for help. i responded . the pt was ripping off the monitor and BP cuff . he was demanding his clothes and knapsack. his mother asked me to stop him. security was called as the pt was ambulating out of the department with his knapsack. he pointed his finger and raised his voice at his mother . Nursing Note:
== END 2022-02-15 17:51 ==
PROVIDERS: Emergency Medicine; Emergency Provider Emergency Medicine
DX: L08.89 Other specified local infections of the skin and subcutaneous tissue (principal)
CPT/HCPCS: 10060; 81003

== ENCOUNTER 2022-02-16 10:09 | Inpatient (IN) | payer MEDICAID, SELFPAY ==
[2022-02-16 10:32] VITALS: BP 166/108; PULSE 76; RESP 14; TEMP 36.3; O2SAT 97
[2022-02-16] MEDS: LORazepam 1 MG TAB 2 MG PO (12:19)
[2022-02-16 12:38] LABS: Source Nasal/Nares
[2022-02-16 13:21] LABS: COVID-19 PCR Negative (Negative)
[2022-02-16 13:59] LABS: *AMPHETAMINES SCREEN URINE Negative (Negative); *BARBITURATES SCREEN URINE Negative (Negative); *BENZODIAZEPINES SCREEN URINE Negative (Negative); Cannabinoids THC Positive (Negative); Cocaine Screen,Urine Positive (Negative); METHADONE URINE SCREEN Positive (Negative); OPIATES URINE SCREEN Negative (Negative); Tricyclic Antidepressants Negative (Negative)
--- NOTE | 2022-02-16 14:40 | PDOC.MHCN_ITS ---
Date of service: 02/16/22 Time of Service: 14:10 Mental Health Crisis Note Presenting Issue How did you arrive at the ED and why did you come: Client arrived at ED with chief complaint of ETOH dependance, depression, and SI. Precipitating Factors Client reports he has passive SI denies plan or intent. Client has history of endorsing SI but denies any attempts. Client denies HI/ delusions. Client reports deterrent of son. Disposition BEHAVIOR: Cooperative EYE CONTACT: Consistent MOOD: Client reports overwhelmed. AFFECT: Congruent with mood. APPETITE: Client reports appetite has been good. SLEEP(trouble falling/staying asleep: Client reports he has not been sleeping. Plan Client presents with co-occurring substance abuse disorder and major depressive disorder. Client has previously attempted to address theses on an outpatient pl atform but did not follow through with services. Client reports he needs help and feels like he is dying. It is this clinicians professional opinion that client is in need of in patient treatment to address his co-occurring disorders. Client is voluntarily seeking placement. Referrals will be sent to [facility], [facility], [facility], and [facility]. This clinician consulted with SYL Gonzalez. Signature Clinician's Name/Title: Antoni Amezcua BA
--- NOTE | 2022-02-16 15:11 | W.ED.GENAD ---
Discharge Plan Disposition Patient Disposition: [facility] INPATIENT Condition: Stable Discharge Details Clinical Impression: Alcohol withdrawal, Polysubstance abuse, Depression Admit Date/Time: 02/16/22 22:36 Admit Provider: Leon Colindres Attending Provider: Leon Colindres Primary Care Provider: Loni,[facility] ED Provider: Colton Ortega Discharge Data Discharge Date/Time-TO BE ENTERED AT DEPARTURE: 02/17/22 00:40 Medical Decision Making <SYL Smalls - Last Filed: 02/17/22 09:19> Patient is alert and oriented, he is of decisional capacity despite taking his prescribed methadone and 24 ounces beer just prior to initial assessment Patient is presenting secondary to severe depression with passive suicidality, no active suicidal ideation at this time Unfortunately this patient is a challenge to obtain access on and difficult to medically clear with diagnostic labs secondary to line placement and phlebotomy Patient had numerous attempts with phlebotomy, my attending physician, Dr. Yi, nursing staff and unfortunately were unable to obtain diagnostic labs or IV access they are graciously Anny for mental health with To assess the patient at he is alert and oriented with stable vitals and patient is stable respiratory status, just he does feel that patient is severely depressed and would benefit from admission Patient is an alcoholic, he drinks approximately 1/5 of vodka daily and 1 case of beer daily and is at risk for severe alcohol withdrawal, he denies known seizure history He states he has been tremulous before the alcohol withdrawal He was given Ativan upon initial assessment Anesthesia was willing to attempt a line placement and midline was placed on the right which patient is tolerating well Patient is not exhibiting any signs or symptoms of alcohol at time of my reassessment at 1600 Patient is agreeable for likely admission for voluntary status and is resting comfortably in room, pending labs will be transferred to Colton Ortega, physician press assistant and feeder Medical Records Medical records reviewed: Yes I reviewed the patient's medical records. HPI <SYL Smalsl - Last Filed: 02/17/22 09:19> General Date/Time Provider Initiated Documentation: 02/16/22 10:14. HPI Narrative: This 41-year-old male with history of polysubstance abuse, osteomyelitis, bacteremia, depression, history of ideation presents with report of generalized myalgias, passive suicidal ideation, and worsening depression. He is an alcoholic and drinks approximately 1/5 of vodka daily and a 24 pack of beer. He did have a history of alcohol withdrawal but denies any seizure history. He last 24 hours of beer just prior to arrival. He denies any fever or chills. He does report upper respiratory symptoms including runny nose and cough. He has a history of myalgias previously and attributes that to being taken off of Neurontin several weeks ago. He denies any attempts to harm self today. He denies any IV drug abuse for the past years. He does have a significant history of IV drug abuse per patient. He did take his methadone prior to arrival. Related Data Home Medications Medication Instructions Recorded Confirmed methadone 10 mg/mL oral concentrate 45 mg PO DAILY 03/31/14 02/16/22 fluoxetine 40 mg capsule 80 mg PO DAILY 10/09/20 02/16/22 hydroxyzine pamoate 50 mg capsule 50 mg PO Q4H PRN 10/09/20 02/16/22 loratadine 10 mg tablet 10 mg PO DAILY 10/09/20 02/16/22 melatonin 3 mg tablet 6 mg PO HS PRN 10/09/20 02/16/22 Allergies Allergy/AdvReac Type Severity Reaction Status Date / Time No Known Allergies Allergy Unverified 02/16/22 10:41 General Stated Complaint: PsychEval RAVEN: 2 Review of Systems <SYL Smalls - Last Filed: 02/17/22 09:19> All systems reviewed & are unremarkable except as noted in HPI and below PFSH <SYL Smalls - Last Filed: 02/17/22 09:19> All Active Problems (Updated 02/17/22 @ 00:27 by Leon Colindres) Bronchospasm (Chronic) Chest pain (Acute) Pneumonia (Acute) Myalgia (Acute) Alcohol withdrawal (Acute) Depression (Chronic) Suicidal ideation (Acute) Bacteremia (Acute) Cocaine withdrawal (Acute) Osteomyelitis of lower leg, left, acute (Acute) Suicide ideation (Acute) Polysubstance abuse (Chronic) Family History Other Alcohol use disorder Depression Social History Smoking/Tobacco Use Status: Former Tobacco Use Smoking risk assessment performed?: Yes Alcohol Intake: current Alcohol Intake frequency: 3 or more drinks per day Alcohol type: beer and hard liquor Drug use: Occasionally Substance use type: marijuana Details: drinks a case and a half of beer a day and a fifth of vodka. Do you feel safe at home: Yes Do you feel safe in your relationship?: Yes Exam <SYL Smalls - Last Filed: 02/17/22 09:19> Const General: cooperative and no acute distress Orientation: alert and oriented x3 HENMT Other: Uvula midline, excoriations on nose and forehead Eyes Pupils: PERRL Resp Effort & Inspection: normal respiratory effort Auscultation: clear to auscultation bilaterally Cardio Rate: regular rate Rhythm: regular rhythm GI Inspection: normal to inspection Auscultation: normal bowel sounds Neuro General: patient alert and patient oriented x3 Cranial Nerves: CN's II-XI intact bilaterally Cognition: normal cognition Speech: speech normal Psych Appearance: disheveled Mental Status: mental status grossly normal Speech and Movement: speech and movement normal Mood: dysthymic mood Attitude: cooperative Insight: fair Judgment: fair Course <SYL Smalls Last Filed: 02/17/22 09:19> Vital Signs Vital signs: Vital Signs Temperature 36.3 C L 02/16/22 10:32 Pulse 76 02/16/22 10:32 Respiratory Rate 14 02/16/22 10:32 Blood Pressure 166/108 H 02/16/22 10:32 Pulse Oximetry 97 02/16/22 10:32 Temperature 36.3 C L 02/16/22 10:32 Pulse 76 02/16/22 10:32 Respiratory Rate 14 02/16/22 10:32 Respiratory Effort Non-Labored 02/16/22 10:37 Respiratory Pattern Normal 02/16/22 10:58 Blood Pressure 166/108 H 02/16/22 10:32 Blood Pressure Position Sitting 02/16/22 10:32 Pulse Oximetry 97 02/16/22 10:32 Oxygen Delivery Method Room Air 02/16/22 10:32 Oxygen Flow Rate 0 02/16/22 10:32 Pain Level 10 02/16/22 10:32 Lab/Test Results Lab/Test Results: Laboratory Tests Range/Units 02/16/22 02/16/22 02/16/22 11:55 11:57 12:24 Sodium Cancelled Potassium Cancelled Chloride Cancelled Carbon Dioxide Cancelled Anion Gap Cancelled BUN Cancelled Creatinine Cancelled Estimated GFR/1.73 m2 Cancelled Glucose Cancelled Calcium Cancelled Total Bilirubin Cancelled AST Cancelled ALT Cancelled Alkaline Phosphatase Cancelled Creatine Kinase Total Protein Cancelled Albumin Cancelled Lipase Cancelled TSH Urine Opiates Screen (Negative) Negative Urine Methadone Screen (Negative) Positive A Ur Barbiturates Screen (Negative) Negative Ur Tricyclics Screen (Negative) Negative Ur Amphetamines Screen (Negative) Negative U Benzodiazepines Scrn (Negative) Negative Urine Cocaine Screen (Negative) Positive A Ur THC Screen (Negative) Positive A Ethyl Alcohol Cancelled COVID-19 Source Nasal/Nares SARS-CoV-2 (PCR) (Negative) Negative Range/Units 02/16/22 12:24 Sodium Potassium Chloride Carbon Dioxide Anion Gap BUN Creatinine Estimated GFR/1.73 m2 Glucose Calcium Total Bilirubin AST ALT Alkaline Phosphatase Creatine Kinase Cancelled Total Protein Albumin Lipase TSH Cancelled Urine Opiates Screen (Negative) Urine Methadone Screen (Negative) Ur Barbiturates Screen (Negative) Ur Tricyclics Screen (Negative) Ur Amphetamines Screen (Negative) U Benzodiazepines Scrn (Negative) Urine Cocaine Screen (Negative) Ur THC Screen (Negative) Ethyl Alcohol COVID-19 Source SARS-CoV-2 (PCR) (Negative) Sign Out <SYL Smalls - Last Filed: 02/17/22 09:19> Sign Out Data: Sign Out Comment: pending labs and MH placement, voluntary status and ok to be dc'd if requests Last updated by Lisa Reyna PA at 02/16/22 15:56 PAWSS <SYL Smalls - Last Filed: 02/17/22 09:19> Have you Been Recently Intoxicated or Drunk Within the Last 30 days?: Yes Have you Ever Experienced Previous Episodes of Alcohol Withdrawal?: Yes Have you ever Experienced Withdrawal Seizures?: No Have you ever Experienced Delirium Tremens(DT)s?: Yes Have you ever undergone Alcohol Rehabilitation Treatment (i.e, inpt ot outpatient treatment programs)?: Yes Have you ever Experienced Blackouts?: No Have you ever Combined Alcohol with other Downers within the last 90 days?: No Have you ever Combined Alcohol with any other Substance of Abuse during the last 90 days?: Yes Positive Blood Alcohol level on Presentation? [PCS.BAL]: Yes Evidence of Increased Autonomic Activity (i.e. HR>120, tremor, sweating, agitation, nausea)?: Yes Result: 8 <SYL Edmonds - Last Filed: 02/16/22 21:40> Result: 8
--- NOTE | 2022-02-16 15:30 | W.ANESVAS ---
Midline Placement Date Performed: 02/16/22 Procedure Time: 15:05 Requesting Provider: Lisa Reyna Procedure Location: Emergency Department Sedation Given (Indicate Dose Given): No Sedation given Patient Mental Status: Awake Sterility: Hand Hygiene, Surgical Cap, Surgical Mask, Sterile Gloves and Chlorhexidine Laterality: Right Insertion Site: Cephalic Midline Device: PowerGlide Pro 20G Catheter Length: 10 cm Midline Procedure Procedure: 1% Lidocaine to skin and subcutaneous tissue with 25g needle, Vessel accessed with catheter over needle, Guidewire placed with ease, Catheter placed without resistance and Guidewire removed Dressing: Tegaderm Applied, Statlock Applied and Mastisol Used Blood Return: Present Flushes: Easily Ultrasound: Sterile probe cover and gel used Ultrasound Image Saved?: Yes Number of Attempts (See previous attempts in note section): 1 Procedure Tolerated: No Complications and Patient tolerated well Procedure Outcome: Successful Performed By: Leon Scott
[2022-02-16 15:31] LABS: Abs Immature Grans 0.01 10^3/uL (0.0-0.06); Absolute Basophil Count 0.04 10^3/uL (0.0-0.2); Absolute Eosinophil Count 0.13 10^3/uL (0.0-0.7); Absolute Lymphocyte Count 1.48 10^3/uL (1.2-3.4); Absolute Monocyte Count 0.97 10^3/uL (0.1-0.8); Absolute Neutrophil Count 2.92 10^3/uL (1.2-6.7); Basophils % 0.7; Eosinophils % 2.3; HCT 43.5 % (40.0-50.0); HGB 13.6 g/dL (13.5-17.5); Immature Grans % 0.2; Lymphocytes % 26.7; MCH 27.7 pg (27.0-33.0); MCHC 31.3 % (32.0-36.0); MCV 89 fL (80-95); MPV 9.5 fL (8.0-11.0); Monocytes % 17.5; Neutrophils % 52.6; Platelet Count 287 10^3/uL (130-400); RBC 4.91 10^6/uL (4.36-5.78); RDW 15.8 % (11.8-14.1); RDW-SD 50.2 fL; WBC 5.55 10^3/uL (4.4-10.8)
[2022-02-16 15:56] LABS: ALT 19 U/L (16-63); AST 27 U/L (15-37); Albumin 3.5 g/dL (3.4-5.0); Alkaline Phosphatase 108 U/L (46-116); Anion Gap 8.2 mmol/L (3-11); BUN 3 mg/dL (7-18); Bilirubin, Total 0.3 mg/dL (0.2-1.0); CO2 28.8 mmol/L (21.0-32.0); Calcium 8.4 mg/dL (8.5-10.1); Chloride 101 mmol/L (98-107); Creatine Kinase 71 U/L (39-308); Glucose 106 mg/dL (74-106); Lipase 272 U/L (73-393); Potassium 3.5 mmol/L (3.5-5.1); Sodium 138 mmol/L (136-145); TSH (W/Ref FT4) 1.31 uIU/mL (0.36-3.74); Total Protein 7.8 g/dL (6.4-8.2)
[2022-02-16 16:24] LABS: ETHANOL BLOOD < 3.0 mg/dL (<10)
[2022-02-16] MEDS: LORazepam 1 MG TAB PO/SL ×2 (16:32→21:01)
[2022-02-16] MEDS: Lidocaine 4% Cream 5 GM TUBE TP (16:33)
[2022-02-16 21:07] VITALS: BP 153/89; PULSE 62; TEMP 37; O2SAT 96
--- NOTE | 2022-02-16 21:33 | W.EDPROG ---
Date of service: 02/16/22 Time of Service: 16:00 Medical Decision Making This is a 41-year-old gentleman who I assumed care of from my colleague SYL Reyna, please see her initial HPI and examination. Patient has already been evaluated by mental health for polysubstance abuse, depression, vague SI. He is a voluntary placement and given he appears to be no risk to himself or others, she did not feel as though a CPSO was necessary. Patient was an extremely IV access, anesthesia came to place a central line. Given this, laboratory values were delayed. The situation was discussed with the pet house sitter who requested that we board the patient in the ER overnight rather than admit for placement. Laboratory values reveal tox screen methadone, cocaine, THC positive. COVID negative, otherwise grossly unremarkable. There are no laboratory values that would impede a voluntary psychiatric placement Patient has no acute concerns or complaints, is agreeable to awaiting voluntary placement. Patient witnessed ambulating steadily to the restroom multiple times. Had dinner and tolerated without difficulty. Has remained cooperative. I discussed the case with our pet house sitter and she recommended reaching out to the hospitalist to see if we could admit the patient given his overall presentation without a CPSO. Case was discussed with Dr. Colindres who is agreeable to admit the patient into his care and will place orders. Given the patient is not endorsing active suicidal or homicidal thoughts without a plan to harm himself or others, CPSO not require. This documentation was generated using [employer] dictation system, please disregard any oddities of phrase or misspellings. Medical Records Medical records reviewed: Yes I reviewed the patient's medical records. Lab Data Lab results reviewed: Yes I reviewed the patient's lab results. Labs: Laboratory Tests Range/Units 02/16/22 02/16/22 02/16/22 11:55 11:57 12:24 WBC (4.4-10.8) 10^3/uL RBC (4.36-5.78) 10^6/uL Hgb (13.5-17.5) g/dL Hct (40.0-50.0) % MCV (80-95) fL MCH (27.0-33.0) pg MCHC (32.0-36.0) % RDW (11.8-14.1) % Plt Count (130-400) 10^3/uL MPV (8.0-11.0) fL Immature Gran % Neutrophils % Lymphocytes % Monocytes % Eosinophils % Basophils % Nucleated RBC % (0.0-0.3) % Absolute Neutrophils (1.2-6.7) 10^3/uL Absolute Lymphocytes (1.2-3.4) 10^3/uL Absolute Monocytes (0.1-0.8) 10^3/uL Absolute Eosinophils (0.0-0.7) 10^3/uL Absolute Basophils (0.0-0.2) 10^3/uL Sodium Cancelled Potassium Cancelled Chloride Cancelled Carbon Dioxide Cancelled Anion Gap Cancelled BUN Cancelled Creatinine Cancelled Estimated GFR/1.73 m2 Cancelled Glucose Cancelled Calcium Cancelled Total Bilirubin Cancelled AST Cancelled ALT Cancelled Alkaline Phosphatase Cancelled Creatine Kinase Total Protein Cancelled Albumin Cancelled Lipase Cancelled TSH Urine Opiates Screen (Negative) Negative Urine Methadone Screen (Negative) Positive A Ur Barbiturates Screen (Negative) Negative Ur Tricyclics Screen (Negative) Negative Ur Amphetamines Screen (Negative) Negative U Benzodiazepines Scrn (Negative) Negative Urine Cocaine Screen (Negative) Positive A Ur THC Screen (Negative) Positive A Ethyl Alcohol Cancelled COVID-19 Source Nasal/Nares SARS-CoV-2 (PCR) (Negative) Negative Range/Units 02/16/22 02/16/22 02/16/22 12:24 15:21 15:21 WBC (4.4-10.8) 10^3/uL 5.55 RBC (4.36-5.78) 10^6/uL 4.91 Hgb (13.5-17.5) g/dL 13.6 Hct (40.0-50.0) % 43.5 MCV (80-95) fL 89 MCH (27.0-33.0) pg 27.7 MCHC (32.0-36.0) % 31.3 L RDW (11.8-14.1) % 15.8 H Plt Count (130-400) 10^3/uL 287 MPV (8.0-11.0) fL 9.5 Immature Gran % 0.2 Neutrophils % 52.6 Lymphocytes % 26.7 Monocytes % 17.5 Eosinophils % 2.3 Basophils % 0.7 Nucleated RBC % (0.0-0.3) % 0.0 Absolute Neutrophils (1.2-6.7) 10^3/uL 2.92 Absolute Lymphocytes (1.2-3.4) 10^3/uL 1.48 Absolute Monocytes (0.1-0.8) 10^3/uL 0.97 H Absolute Eosinophils (0.0-0.7) 10^3/uL 0.13 Absolute Basophils (0.0-0.2) 10^3/uL 0.04 Sodium 138 Potassium 3.5 Chloride 101 Carbon Dioxide 28.8 Anion Gap 8.2 BUN 3 L Creatinine 1.0 Estimated GFR/1.73 m2 >= 60.00 Glucose 106 Calcium 8.4 L Total Bilirubin 0.3 AST 27 ALT 19 Alkaline Phosphatase 108 Creatine Kinase Cancelled 71 Total Protein 7.8 Albumin 3.5 Lipase 272 TSH Cancelled 1.31 Urine Opiates Screen (Negative) Urine Methadone Screen (Negative) Ur Barbiturates Screen (Negative) Ur Tricyclics Screen (Negative) Ur Amphetamines Screen (Negative) U Benzodiazepines Scrn (Negative) Urine Cocaine Screen (Negative) Ur THC Screen (Negative) Ethyl Alcohol < 3.0 COVID-19 Source SARS-CoV-2 (PCR) (Negative) Exam Const General: cooperative, healthy appearing, comfortable and no acute distress Orientation: alert and awake [facility] Head: normal to inspection, normocephalic and atraumatic Eyes Conjunctivae: conjunctivae normal Neck Neck: normal visual inspection, trachea midline and supple Resp Effort & Inspection: normal respiratory effort and able to speak in complete sentences Skin Rashes: no rashes Neuro General: patient alert, patient awake, moves all extremities and no focal motor deficits Cognition: normal cognition Speech: speech normal Gait: normal gait Sensory Exam: no sensory deficits noted Extrem General: normal to inspection and full ROM Psych Appearance: grossly normal Mental Status: mental status grossly normal Sign Out Sign Out Data: Sign Out Comment: pending labs and MH placement, voluntary status and ok to be dc'd if requests Last updated by Lisa Reyna PA at 02/16/22 15:56 Discharge Plan Disposition Patient Disposition: [facility] INPATIENT Condition: Stable Discharge Details Clinical Impression: Alcohol withdrawal, Polysubstance abuse, Depression Primary Care Provider: No,Local ED Provider: Colton Ortega [place] Meds and New Rx's Prescriptions: No Action methadone 10 MG/ML concentrate 45 mg PO DAILY 0RF fluoxetine 40 mg capsule 80 mg PO DAILY 0RF Label Comments: TK 2 CS PO QAM hydroxyzine pamoate 50 mg capsule 50 mg PO Q4H PRN0RF Label Comments: TK 1 C PO Q 4 H PRN melatonin 3 mg tablet 6 mg PO HS [id number] Label Comments: TK 2 TS PO HS loratadine 10 mg tablet 10 mg PO DAILY 0RF Label Comments: TK 1 T PO QD
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
[2022-02-17] VITALS (11 sets, daily range): BP systolic 131–177; BP diastolic 68–98; PULSE 54–70; RESP 14–22; TEMP 36.2–37.3; O2SAT 94–99
[2022-02-17] MEDS: LORazepam 1 MG TAB PO/SL ×6 (01:07→22:25)
[2022-02-17] MEDS: Enoxaparin 40 MG/0.4 ML SYR SC (01:26)
[2022-02-17] MEDS: Acetaminophen 325 MG TAB 650 MG PO ×3 (01:28→18:43)
[2022-02-17 07:22] LABS: Abs Immature Grans 0.01 10^3/uL (0.0-0.06); Absolute Basophil Count 0.04 10^3/uL (0.0-0.2); Absolute Eosinophil Count 0.32 10^3/uL (0.0-0.7); Absolute Lymphocyte Count 1.71 10^3/uL (1.2-3.4); Absolute Monocyte Count 0.72 10^3/uL (0.1-0.8); Absolute Neutrophil Count 1.74 10^3/uL (1.2-6.7); Basophils % 0.9; HCT 43.5 % (40.0-50.0); HGB 13.7 g/dL (13.5-17.5); Immature Grans % 0.2; Lymphocytes % 37.7; MCH 27.5 pg (27.0-33.0); MCHC 31.5 % (32.0-36.0); MCV 87 fL (80-95); MPV 9.8 fL (8.0-11.0); Monocytes % 15.9; Neutrophils % 38.3; Platelet Count 241 10^3/uL (130-400); RBC 4.99 10^6/uL (4.36-5.78); RDW 15.8 % (11.8-14.1); RDW-SD 49.7 fL; WBC 4.54 10^3/uL (4.4-10.8)
[2022-02-17] MEDS: Thiamine 100 MG TAB PO (08:24)
[2022-02-17] MEDS: Folic Acid 1 MG TAB PO (08:24)
[2022-02-17] MEDS: FLUoxetine 20 MG CAP 80 MG PO (08:24)
[2022-02-17] MEDS: Multivitamin TAB 1 TAB PO (08:24)
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
--- NOTE | 2022-02-17 09:00 | NUR.NOTE ---
When RADHA Huerta went through patient's personal belongings upon arrival she found two werner jars with baggies full of a green substance and a glass pipe, a metal tube was found, two dirty spoons and a bottle that stated it was methadone with a small amt of pink fluid in it. Advised by hematology supervisor Elsie to store the items in the dirty utility room until it was decided what to do with the items. Kaye Davidson RN was advised of the situation when she arrived for evening shift and it was discussed with the pipeline gang supervisor. Kaye advised us when we arrived to work this morning that items were removed from dirty utility room and put in the security office for everyone's safety.
[2022-02-17 09:06] LABS: PHOSPHORUS 4.2 mg/dL (2.6-4.7)
[2022-02-17 09:08] LABS: ALT 15 U/L (16-63); AST 21 U/L (15-37); Albumin 3.3 g/dL (3.4-5.0); Alkaline Phosphatase 103 U/L (46-116); Anion Gap 8.1 mmol/L (3-11); BUN 3 mg/dL (7-18); Bilirubin, Total 0.4 mg/dL (0.2-1.0); CO2 26.9 mmol/L (21.0-32.0); CREATININE 1.1 mg/dL (0.70-1.30); Calcium 8.8 mg/dL (8.5-10.1); Chloride 102 mmol/L (98-107); Glucose 108 mg/dL (74-106); Potassium 3.6 mmol/L (3.5-5.1); Sodium 137 mmol/L (136-145); Total Protein 7.3 g/dL (6.4-8.2)
[2022-02-17 09:23] LABS: Prothrombin Time 10.1 sec (9.3-11.0)
[2022-02-17] MEDS: Methadone Liquid 10 MG/ML 45 MG PO (10:43)
--- NOTE | 2022-02-17 13:38 | PGE_ITS ---
Date of Service Date of service: 02/17/22 Time of Service: 11:45 Assessment and Plan Assessment and plan (1) Alcohol withdrawal: Start date: 02/17/22 Start time: 11:45 Status: Acute Assessment and plan: drinks 24 beers and 1/5 of hard alcohol a day Last drink yesterday. states he has w/d before and gets irritable, he has never seized. CIWA score now 10 schedule liburium and gabapentin for etoh w/d (2) Suicidal ideation: Start date: 02/17/22 Start time: 11:45 Status: Acute Assessment and plan: denies SI at this time Will have MH evaluate once medically cleared. (3) Depression: Start date: 02/17/22 Start time: 11:45 Status: Chronic Assessment and plan: continue fluoxetine (4) Polysubstance abuse: Start date: 02/17/22 Start time: 11:45 Status: Chronic Assessment and plan: Patient chronically on methadone He had cocaine in his urine and admits to doing cocaine recently, along with THC and alcohol. He did have previous IV drug use but not recently. (5) Bronchospasm: Start date: 02/17/22 Start time: 11:45 Status: Chronic Assessment and plan: Patient states that he does have chronic wheezing with cough. Previous tobacco user and was on rescue inhalers in the past but none recently. During his hospital stay he will use albuterol HFA as needed. He did test negative for COVID. Precaution should be maintained because of his productive cough. He has vaccinated for COVID-19. discussed with Dr. Beyer Subjective Subjective Patient reports: other Interval history since last seen: Patient states going through w/d before and having irritability when withdrawing. He also c/o nasal congestion and a cough with sputum production could not tell me the color of sputum sx x 1 week, no pain or pressure with when palpating sinuses. LSC, likely a cold. Afebrile. Exam Narrative Exam Narrative: General: Patient appears older than stated age, unkempt with poor eye contact, flattened affect and depressed mood. He has a monotonous slow tone and hernando to his voice. Face appears traumatized with excoriations over his right synagogue area and an erythematous linear lesion which appears to be an old healed/over the bridge of his nose. There is no bleeding or surrounding erythema with these lesions. Neck: Supple without JVD. Back: Stooped posture without CVA tenderness. Lungs: Bronchovesicular breath sounds diffusely with increased expiratory phase and expiratory wheeze. No focalizing expiratory coarse crackles and rhonchi. Poor aeration diffusely. Heart: Distant heart sounds with regular rate and rhythm no appreciable murmur or gallop. Abdomen: Obese contour, soft nontender to palpation with no palpable hepatosplenomegaly. Extremities: Without clubbing, cyanosis or pitting edema. Peripheral pulses intact upper and lower extremities. No joint swelling. Negative Homans' sign bilaterally. Skin: Pale, warm and moist with multiple tattoos and excoriations and lee over his face and upper extremities all appear to be chronic. Good turgor. Neuro: Cranial nerves II to XII is intact, no focalizing motor deficits no tremor. Psych: Flat affect with depressed mood. No abnormal thought processes. Patient is a vague historian. Remote and recent memory appear to be grossly intact. Objective Last Vital Signs Temp 36.2 C L 02/17/22 11:46 Pulse 56 L 02/17/22 11:46 Resp 18 02/17/22 11:46 BP 131/87 02/17/22 11:46 Pulse Ox 96 02/17/22 11:46 Laboratory Results - last 24 hr 02/16/22 02/16/22 02/16/22 11:55 15:21 15:21 WBC 5.55 RBC 4.91 Hgb 13.6 Hct 43.5 MCV 89 MCH 27.7 MCHC 31.3 L RDW 15.8 H Plt Count 287 MPV 9.5 Immature Gran % 0.2 Neutrophils % 52.6 Lymphocytes % 26.7 Monocytes % 17.5 Eosinophils % 2.3 Basophils % 0.7 Nucleated RBC % 0.0 Absolute Neutrophils 2.92 Absolute Lymphocytes 1.48 Absolute Monocytes 0.97 H Absolute Eosinophils 0.13 Absolute Basophils 0.04 PT INR Sodium 138 Potassium 3.5 Chloride 101 Carbon Dioxide 28.8 Anion Gap 8.2 BUN 3 L Creatinine 1.0 Estimated GFR/1.73 m2 >= 60.00 Glucose 106 Calcium 8.4 L Phosphorus Magnesium Total Bilirubin 0.3 AST 27 ALT 19 Alkaline Phosphatase 108 Creatine Kinase 71 Total Protein 7.8 Albumin 3.5 Lipase 272 TSH 1.31 Urine Opiates Screen Negative Urine Methadone Screen Positive A Ur Barbiturates Screen Negative Ur Tricyclics Screen Negative Ur Amphetamines Screen Negative U Benzodiazepines Scrn Negative Urine Cocaine Screen Positive A Ur THC Screen Positive A Ethyl Alcohol < 3.0 02/16/22 02/17/22 02/17/22 22:40 06:36 08:40 WBC 4.54 RBC 4.99 Hgb 13.7 Hct 43.5 MCV 87 MCH 27.5 MCHC 31.5 L RDW 15.8 H Plt Count 241 MPV 9.8 Immature Gran % 0.2 Neutrophils % 38.3 Lymphocytes % 37.7 Monocytes % 15.9 Eosinophils % 7.0 Basophils % 0.9 Nucleated RBC % 0.0 Absolute Neutrophils 1.74 Absolute Lymphocytes 1.71 Absolute Monocytes 0.72 Absolute Eosinophils 0.32 Absolute Basophils 0.04 PT INR Sodium Potassium Chloride Carbon Dioxide Anion Gap BUN Creatinine Estimated GFR/1.73 m2 Glucose Calcium Phosphorus 4.2 Magnesium Cancelled 2.0 Total Bilirubin AST ALT Alkaline Phosphatase Creatine Kinase Total Protein Albumin Lipase TSH Urine Opiates Screen Urine Methadone Screen Ur Barbiturates Screen Ur Tricyclics Screen Ur Amphetamines Screen U Benzodiazepines Scrn Urine Cocaine Screen Ur THC Screen Ethyl Alcohol 02/17/22 02/17/22 08:40 08:40 WBC RBC Hgb Hct MCV MCH MCHC RDW Plt Count MPV Immature Gran % Neutrophils % Lymphocytes % Monocytes % Eosinophils % Basophils % Nucleated RBC % Absolute Neutrophils Absolute Lymphocytes Absolute Monocytes Absolute Eosinophils Absolute Basophils PT 10.1 INR 1.0 Sodium 137 Potassium 3.6 Chloride 102 Carbon Dioxide 26.9 Anion Gap 8.1 BUN 3 L Creatinine 1.1 Estimated GFR/1.73 m2 >= 60.00 Glucose 108 H Calcium 8.8 Phosphorus Magnesium Total Bilirubin 0.4 AST 21 ALT 15 L Alkaline Phosphatase 103 Creatine Kinase Total Protein 7.3 Albumin 3.3 L Lipase TSH Urine Opiates Screen Urine Methadone Screen Ur Barbiturates Screen Ur Tricyclics Screen Ur Amphetamines Screen U Benzodiazepines Scrn Urine Cocaine Screen Ur THC Screen Ethyl Alcohol PAWSS Have you Been Recently Intoxicated or Drunk Within the Last 30 days?: Yes Have you Ever Experienced Previous Episodes of Alcohol Withdrawal?: Yes Have you ever Experienced Withdrawal Seizures?: Yes Have you ever Experienced Delirium Tremens(DT)s?: Unable to Obtain Have you ever undergone Alcohol Rehabilitation Treatment (i.e, inpt ot outpatient treatment programs)?: Unable to Obtain Have you ever Experienced Blackouts?: Unable to Obtain Have you ever Combined Alcohol with other Downers within the last 90 days?: Unable to Obtain Have you ever Combined Alcohol with any other Substance of Abuse during the last 90 days?: Unable to Obtain Positive Blood Alcohol level on Presentation? [PCS.BAL]: No Evidence of Increased Autonomic Activity (i.e. HR>120, tremor, sweating, agitation, nausea)?: Yes Result: 4
[2022-02-17] MEDS: Gabapentin 300 MG CAP PO ×2 (14:54→20:35)
[2022-02-17] MEDS: chlordiazePOXIDE 25 MG CAP PO ×2 (14:54→20:35)
[2022-02-18] VITALS (8 sets, daily range): BP systolic 136–160; BP diastolic 84–93; PULSE 58–68; RESP 16–19; TEMP 36.6–37.1; O2SAT 95–99
[2022-02-18] MEDS: LORazepam 1 MG TAB 2 MG PO ×2 (00:39→23:44)
[2022-02-18] MEDS: Acetaminophen 325 MG TAB 650 MG PO ×4 (00:39→21:54)
[2022-02-18] MEDS: LORazepam 1 MG TAB PO/SL ×4 (04:50→21:53)
[2022-02-18] MEDS: Thiamine 100 MG TAB PO (08:20)
[2022-02-18] MEDS: Gabapentin 300 MG CAP PO ×3 (08:20→19:46)
[2022-02-18] MEDS: FLUoxetine 20 MG CAP 80 MG PO (08:20)
[2022-02-18] MEDS: Folic Acid 1 MG TAB PO (08:21)
[2022-02-18] MEDS: chlordiazePOXIDE 25 MG CAP PO ×3 (08:21→19:46)
[2022-02-18] MEDS: Multivitamin TAB 1 TAB PO (08:21)
[2022-02-18 08:26] LABS: Anion Gap 9.5 mmol/L (3-11); BUN 9 mg/dL (7-18); CO2 28.5 mmol/L (21.0-32.0); Calcium 8.4 mg/dL (8.5-10.1); Chloride 102 mmol/L (98-107); Folate 6.7 ng/mL (8.6-20.0); Glucose 88 mg/dL (74-106); Potassium 3.4 mmol/L (3.5-5.1); Sodium 140 mmol/L (136-145); Vitamin B12 152 pg/mL (193-986)
[2022-02-18] MEDS: Methadone Liquid 10 MG/ML 45 MG PO (08:51)
[2022-02-18] MEDS: Potassium Chloride 20 MEQ TABCR 40 MEQ PO (08:54)
--- NOTE | 2022-02-18 09:40 | PDOC.CMPRO ---
- If Service Date Differs Date of service: 02/18/22 Time of Service: 09:40 Care Management Progress Note S/O: William was lying in bed when CM met with him. He reported that he is not feeling well today, and stated that he has a lot of anxiety, but he has been reporting this to his RN. Per report, he has been scoring between 2-9 on the CIWA scale today. He is not yet medically cleared. Once he becomes medically cleared, CM will coordinate a visit with [facility] to screen him for his suicidal ideation, which he reported in the ED. He is denying SI/HI at this time. CM will continue to follow. A: William is a 41 year old male admitted to [facility] on 02/16/22 with depression, alcohol withdrawal, polysubstance use. P: William is seeking voluntary inpatient treatment for polysubstance use including alcohol, cocaine and THC. He has been deemed not to be a danger to himself or others and does not require a CPSO. Once he is medically cleared, he will be screened by [facility] to determine his discharge plan. CM will follow and support as needed.
[2022-02-18] MEDS: Cyanocobalamin 100 MCG TABLET 500 MCG PO (11:29)
[2022-02-18] MEDS: Normal Saline Flush 10 ML SYR IVP (15:28)
--- NOTE | 2022-02-18 15:45 | W.PM.PROGNOT ---
Date of Service Date of service: 02/18/22 Time of Service: 14:30 Assessment and Plan Assessment and plan (1) Alcohol withdrawal: Start date: 02/18/22 Start time: 14:30 Status: Acute Assessment and plan: drinks 24 beers and 1/5 of hard alcohol a day 2 days since last drink. states he has w/d before and gets irritable, he has never seized. He is feeling better since being on scheduled librium and gabapentin for with drawal. highest he has scored all day was a 6. continue to monitor (2) Suicidal ideation: Start date: 02/18/22 Start time: 14:30 Status: Acute Assessment and plan: denies SI at this time Will have MH evaluate once medically cleared. (3) Depression: Start date: 02/18/22 Start time: 14:30 Status: Chronic Assessment and plan: continue fluoxetine (4) Polysubstance abuse: Start date: 02/18/22 Start time: 14:30 Status: Chronic Assessment and plan: Patient chronically on methadone He had cocaine in his urine and admits to doing cocaine recently, along with THC and alcohol. He did have previous IV drug use but not recently. therefore not appropriate for phenobarb d/t methadone (5) Bronchospasm: Start date: 02/18/22 Start time: 14:30 Status: Chronic Assessment and plan: Has not had cough or wheezing in last day. Did ask for nicotrol inhaler as he smokes pot daily and wanted something to keep his hands occupied. does have cold like sx. will give zyrtec at hs. discussed with Dr. Beyer Subjective Subjective Patient reports: no new complaints Interval history since last seen: Patient appears much better than yesterday does not appear to be as distressed or irritable. Better spirits. Continue libruim taper and gabapentin taper for withdrawal, continue to monitor CIWA Objective Last Vital Signs Temp 36.7 C 02/18/22 15:20 Pulse 63 02/18/22 15:20 Resp 16 02/18/22 15:20 BP 149/89 H 02/18/22 15:20 Pulse Ox 95 02/18/22 15:20 Laboratory Results - last 24 hr 02/18/22 06:34 Sodium 140 Potassium 3.4 L Chloride 102 Carbon Dioxide 28.5 Anion Gap 9.5 BUN 9 Creatinine 1.0 Estimated GFR/1.73 m2 >= 60.00 Glucose 88 Calcium 8.4 L Magnesium 2.0 Vitamin B12 152 L Folate 6.7 L PAWSS Have you Been Recently Intoxicated or Drunk Within the Last 30 days?: Yes Have you Ever Experienced Previous Episodes of Alcohol Withdrawal?: Yes Have you ever Experienced Withdrawal Seizures?: Yes Have you ever Experienced Delirium Tremens(DT)s?: Unable to Obtain Have you ever undergone Alcohol Rehabilitation Treatment (i.e, inpt ot outpatient treatment programs)?: Unable to Obtain Have you ever Experienced Blackouts?: Unable to Obtain Have you ever Combined Alcohol with other Downers within the last 90 days?: Unable to Obtain Have you ever Combined Alcohol with any other Substance of Abuse during the last 90 days?: Unable to Obtain Positive Blood Alcohol level on Presentation? [PCS.BAL]: No Evidence of Increased Autonomic Activity (i.e. HR>120, tremor, sweating, agitation, nausea)?: Yes Result: 4
[2022-02-18] MEDS: Cetirizine 10 MG TAB PO (21:54)
[2022-02-18] MEDS: Enoxaparin 40 MG/0.4 ML SYR SC (21:55)
[2022-02-19 03:05] VITALS: BP 155/85; PULSE 63; RESP 20; TEMP 36.8; O2SAT 98
[2022-02-19 07:33] LABS: Anion Gap 9.1 mmol/L (3-11); BUN 9 mg/dL (7-18); CO2 25.9 mmol/L (21.0-32.0); CREATININE 0.8 mg/dL (0.70-1.30); Calcium 8.5 mg/dL (8.5-10.1); Chloride 104 mmol/L (98-107); Glucose 89 mg/dL (74-106); Sodium 139 mmol/L (136-145)
[2022-02-19 09:32] VITALS: BP 122/76; PULSE 56; RESP 16; TEMP 36.8; O2SAT 96
[2022-02-19] MEDS: Cyanocobalamin 500 MCG TAB 1000 MCG PO (10:11)
[2022-02-19] MEDS: chlordiazePOXIDE 25 MG CAP PO ×3 (10:12→20:49)
[2022-02-19] MEDS: FLUoxetine 20 MG CAP 80 MG PO (10:12)
[2022-02-19] MEDS: Folic Acid 1 MG TAB PO (10:13)
[2022-02-19] MEDS: Gabapentin 300 MG CAP PO ×3 (10:13→20:49)
[2022-02-19] MEDS: Multivitamin TAB 1 TAB PO (10:13)
[2022-02-19] MEDS: Thiamine 100 MG TAB PO (10:13)
[2022-02-19] MEDS: Methadone Liquid 10 MG/ML 45 MG PO (10:13)
[2022-02-19] MEDS: Normal Saline Flush 10 ML SYR IVP (10:15)
[2022-02-19 11:20] VITALS: BP 137/84; PULSE 60; RESP 21; TEMP 36.6; O2SAT 96
[2022-02-19] MEDS: Acetaminophen 325 MG TAB 650 MG PO (13:35)
--- NOTE | 2022-02-19 15:51 | PGE_ITS ---
Date of Service Date of service: 02/19/22 Time of Service: 12:30 Assessment and Plan Assessment and plan (1) Alcohol withdrawal: Status: Resolved Assessment and plan: CIWA 4 TO 9 Continue libriuim taper and gabapentin taper for withdrawal, continue to monitor CIWA. Patient is would like to get rehab; CM will follow up. (2) Suicidal ideation: Status: Resolved Assessment and plan: Patient denies SI at this time Will have MH evaluate once medically cleared. (3) Depression: Status: Chronic Assessment and plan: Will continue fluoxetine (4) Polysubstance abuse: Status: Chronic Assessment and plan: Will continue outpatient dose of methadone (5) Bronchospasm: Assessment and plan: Will continue Zyrtec for allergy like-symptoms was already on Claritin discussed with Dr. Beyer (6) DVT (deep venous thrombosis): Status: Resolved Assessment and plan: Will continue Enoxaparin Subjective Subjective Patient reports: no new complaints Interval history since last seen: Patient appears calm no distress or irritability. Exam Narrative Exam Narrative: General: Patient appears older than stated age, unkempt with poor eye contact, flattened affect and depressed mood. He has a monotonous slow tone and hernando to his voice. Face appears traumatized with excoriations over his right worship area and an erythematous linear lesion which appears to be an old healed/over the bridge of his nose. There is no bleeding or surrounding erythema with these lesions. Neck: Supple without JVD. Back: Stooped posture without CVA tenderness. Lungs: Bronchovesicular breath sounds diffusely with increased expiratory phase and expiratory wheeze. No focalizing expiratory coarse crackles and rhonchi. Poor aeration diffusely. Heart: Distant heart sounds with regular rate and rhythm no appreciable murmur or gallop. Abdomen: Obese contour, soft nontender to palpation with no palpable hepatosplenomegaly. Extremities: Without clubbing, cyanosis or pitting edema. Peripheral pulses intact upper and lower extremities. No joint swelling. Negative Homans' sign bilaterally. Skin: Pale, warm and moist with multiple tattoos and excoriations and lee over his face and upper extremities all appear to be chronic. Good turgor. Neuro: Cranial nerves II to XII is intact, no focalizing motor deficits no tremor. Psych: Flat affect with depressed mood. No abnormal thought processes. Patient is a vague historian. Remote and recent memory appear to be grossly intact. Const General: cooperative, not in distress, disheveled and ill appearing [facility] Head: normal to inspection, no palpable skull fracture, normocephalic and atraumatic Eyes General: appearance normal, both eyes and all related structures Alignment and Position: alignment normal and position normal Neck Neck: normal visual inspection, full ROM and no lymphadenopathy Chest Chest: normal inspection of the chest Resp Effort & Inspection: normal respiratory effort Auscultation: clear to auscultation bilaterally Cardio Rhythm: regular rhythm Heart Sounds: S1 normal and S2 normal Pulses: radial pulses present and dorsalis pedis present GI Inspection: normal to inspection and non-distended Palpation: soft and nontender Auscultation: normal bowel sounds General: No CVA tenderness Skin Lesions: lesion noted (left arm healing scabs in an aligned pattern, bruises right langford) Neuro General: patient alert, patient awake and patient oriented x3 Cranial Nerves: tongue midline Speech: speech normal Pupils: Normal pupillary reactivity/response: bilateral (PEERLA 2) Extrem General: full ROM, no edema and not dysmorphic Psych Appearance: disheveled Speech and Movement: speech and movement normal Objective Last Vital Signs Temp 97.9 F 02/19/22 11:20 Pulse 60 02/19/22 11:20 Resp 21 02/19/22 11:20 BP 137/84 02/19/22 11:20 Pulse Ox 96 02/19/22 11:20 Laboratory Results - last 24 hr 02/19/22 07:00 Sodium 139 Potassium 4.0 Chloride 104 Carbon Dioxide 25.9 Anion Gap 9.1 BUN 9 Creatinine 0.8 Estimated GFR/1.73 m2 >= 60.00 Glucose 89 Calcium 8.5 Magnesium 2.0 PAWSS Have you Been Recently Intoxicated or Drunk Within the Last 30 days?: Yes Have you Ever Experienced Previous Episodes of Alcohol Withdrawal?: Yes Have you ever Experienced Withdrawal Seizures?: Yes Have you ever Experienced Delirium Tremens(DT)s?: Unable to Obtain Have you ever undergone Alcohol Rehabilitation Treatment (i.e, inpt ot outpatient treatment programs)?: Unable to Obtain Have you ever Experienced Blackouts?: Unable to Obtain Have you ever Combined Alcohol with other Downers within the last 90 days?: Unable to Obtain Have you ever Combined Alcohol with any other Substance of Abuse during the last 90 days?: Unable to Obtain Positive Blood Alcohol level on Presentation? [PCS.BAL]: No Evidence of Increased Autonomic Activity (i.e. HR>120, tremor, sweating, agitation, nausea)?: Yes Result: 4
[2022-02-19 16:35] VITALS: BP 144/20; PULSE 51; RESP 18; TEMP 36.2; O2SAT 97
[2022-02-19] MEDS: Albuterol HFA 8 GM 60 PUFF INH IH (16:41)
--- NOTE | 2022-02-19 17:13 | PDOC.CMPRO ---
- If Service Date Differs Date of service: 02/19/22 Time of Service: 17:13 Care Management Progress Note S/O: William was sitting up in bed eating lunch when CM met with him. He reported that he is still not feeling well, and is in pain, but that it is being managed well by his RN. He denied SI/HI today, but does feel that he needs help with his mental health as well as his substance use. He reported that he has been to [facility] in the past, and felt that it was helpful. Per report, he is not yet medically cleared. Once he is medically cleared, CM will coordinate a consultation to determine the next step in his treatment plan. CM spoke to William's parents, separately, today, and discussed his plan of care. They are supportive of his choice to seek inpatient psychiatric care. CM explained that William is voluntary, and we cannot hold him against his will, which they understand. They are hopeful that he accepts help. CM will continue to follow. A: William is a 41 year old male admitted to [facility] on 02/16/22 with depression, alcohol withdrawal, polysubstance use. P: William is seeking voluntary inpatient treatment for polysubstance use including alcohol, cocaine and THC. He has been deemed not to be a danger to himself or others and does not require a CPSO. Once he is medically cleared, he will be screened by [facility] to determine his discharge plan. CM will follow and support as needed.
[2022-02-19] MEDS: LORazepam 1 MG TAB PO/SL ×2 (17:39→22:51)
[2022-02-19 19:48] VITALS: BP 123/76; PULSE 76; RESP 18; TEMP 36.6; O2SAT 98
[2022-02-19] MEDS: Enoxaparin 40 MG/0.4 ML SYR SC (22:50)
[2022-02-19] MEDS: Cetirizine 10 MG TAB PO (22:51)
[2022-02-20] MEDS: LORazepam 1 MG TAB PO/SL ×3 (03:55→13:12)
[2022-02-20 03:56] VITALS: BP 126/74; PULSE 53; RESP 16; TEMP 36.5; O2SAT 96
[2022-02-20 08:39] VITALS: BP 108/71; PULSE 54; RESP 18; TEMP 36.1; O2SAT 95
[2022-02-20] MEDS: FLUoxetine 20 MG CAP 80 MG PO (09:18)
[2022-02-20] MEDS: Acetaminophen 325 MG TAB 650 MG PO (09:19)
[2022-02-20] MEDS: Gabapentin 300 MG CAP PO (09:19)
[2022-02-20] MEDS: Cyanocobalamin 500 MCG TAB 1000 MCG PO (09:19)
[2022-02-20] MEDS: Multivitamin TAB 1 TAB PO (09:20)
[2022-02-20] MEDS: Thiamine 100 MG TAB PO (09:20)
[2022-02-20] MEDS: Folic Acid 1 MG TAB PO (09:20)
[2022-02-20] MEDS: chlordiazePOXIDE 25 MG CAP PO ×2 (09:20→14:07)
[2022-02-20] MEDS: Methadone Liquid 10 MG/ML 45 MG PO (09:21)
[2022-02-20 10:26] VITALS: RESP 13
[2022-02-20 11:00] VITALS: BP 118/80; PULSE 52; RESP 12; TEMP 36; O2SAT 97
--- NOTE | 2022-02-20 11:13 | CMPROGNOTE_ITS ---
- If Service Date Differs Date of service: 02/20/22 Time of Service: 11:13 Care Management Progress Note S/O: A: William is a 41 year old male admitted to [facility] on 02/16/22 with depression, alcohol withdrawal, polysubstance use. P: William is seeking voluntary inpatient treatment for polysubstance use including alcohol, cocaine and THC. He has been deemed not to be a danger to himself or others and does not require a CPSO. Once he is medically cleared, he will be screened by [facility] to determine his discharge plan. CM will follow and support as needed.
--- NOTE | 2022-02-20 13:51 | DSE_ITS ---
Date of service: 02/20/22 Time of Service: 11:00 DS: Diagnosis Discharge Diagnosis (1) Alcohol withdrawal: Start date: 02/20/22 Start time: 11:00 Status: Acute Asessment and Plan: Patient admitted for alcohol w/d, ethyl alcohol was less than 3.0 on admission however he was positive for methadone, cocaine, and THC His last drink was day before admission. He stated that he had gone through w/d before and the only thing that happens is he becomes irritable. He was placed on CIWA, libriubm and gabapentin for w/d he never scored higher than a 15 on admission and that was prior to libruim and gabpentin He was has been cleared medically and met with he has made a safety plan and will be in the care of [facility]. (2) Suicidal ideation: Start date: 02/20/22 Start time: 11:00 Status: Acute Asessment and Plan: Cleared by for discharge home, as above (3) Depression: Status: Chronic (4) Polysubstance abuse: Start date: 02/20/22 Start time: 11:00 Status: Chronic Asessment and Plan: Patient will be followed by [facility] and has a safety plan in place discussed with Dr. Beyer Discharge Plan Disposition Patient Disposition: HOME Condition: Stable Discharge Details Reason For Visit: Depression,Alcohol Withdrawal,Polysubstance Abuse Admit Date/Time: 02/16/22 22:36 Admit Provider: Leon Colindres Attending Provider: Leon Colindres Primary Care Provider: ,[facility] Course Hospital Course: 41 y.o male with PMH of alcohol abuse, depression, SI, IV drug use, admitted to [facility] for alcohol w/d. He had a level of less than 3 on admission however he was positive for THC, cocaine and methadone. He does receive methadone from [facility]. His last drink was one day before admission. On admission he was having thoughts of SI. He was placed on CIWA for alcohol w/d scoring up to 15 therefore placed on libruim and gabapentin. He stated the only thing he goes through when he w/d is irritability. He has gone through w/d and medically cleared today. Seen by MH he was cleared by them for safety to go home and f/u with [facility]. Therefore he is being discharged home with safety plan in place. Home Meds and New Rx's Prescriptions: New albuterol sulfate [Ventolin HFA] 90 mcg/actuation Hfa Aerosol Inhaler 2 puff inhalation Q4H PRN PRNQty: 8.5 0RF cetirizine 10 mg Tablet 10 mg PO HS Qty: 30 0RF cyanocobalamin (vitamin B-12) [Vitamin B-12] 500 mcg Tablet 1,000 mcg PO DAILY Qty: 30 0RF folic acid 1 mg Tablet 1 mg PO QAM Qty: 30 0RF Continued methadone 10 MG/ML concentrate 45 mg PO DAILY 0RF fluoxetine 40 mg capsule 80 mg PO DAILY 0RF Label Comments: TK 2 CS PO QAM hydroxyzine pamoate 50 mg capsule 50 mg PO Q4H PRN0RF Label Comments: TK 1 C PO Q 4 H PRN melatonin 3 mg tablet 6 mg PO HS PRN0RF Label Comments: TK 2 TS PO HS loratadine 10 mg tablet 10 mg PO DAILY 0RF Label Comments: TK 1 T PO QD Discharge Instructions Instructions: Abuse of Alcohol (DC), Alcohol Withdrawal (DC), Help Prevent Suicide (DC), Alcohol Dependence (DC), Suicide Prevention (DC) Additional Instructions: Maintain safety plan, follow up [facility] Activity:: Activity as Tolerated Equipment/Supplies:: No Equipment Needed Diet:: As Tolerated Discharge Orders Discharge Orders: Discharge Order (Routine); Ordered 02/20/22 Ordered By: Erica Segura DS: Summary Time Spent with Patient providing and/or coordinating discharge services: Less than 30 minutes Status at Discharge Functional status at discharge: independent ambulation Overall status at discharge: patient is back to baseline Mental Status: other Speech and Movement: speech and movement normal Mood: other Affect: anxious affect Exam Psych Mental Status: other Speech and Movement: speech and movement normal Mood: other Affect: anxious affect DS: Data Vitals/I&O Vitals and I&O: Vital Signs Temperature 36.0 C L 02/20/22 11:00 Temperature Source Tympanic 02/20/22 11:00 Pulse 52 L 02/20/22 11:00 Pulse Rhythm Regular 02/20/22 09:00 Respiratory Rate 12 02/20/22 11:00 Respiratory Effort Non-Labored 02/20/22 09:00 Respiratory Depth Normal 02/20/22 09:00 Respiratory Pattern Normal 02/20/22 09:00 Blood Pressure 118/80 02/20/22 11:00 Blood Pressure Position Sitting 02/16/22 10:32 Pulse Oximetry 97 02/20/22 11:00 Oxygen Delivery Method Room Air 02/20/22 11:00 Oxygen Flow Rate 0 02/20/22 11:00 Pain Level 7 02/20/22 11:00 Comment 02/19/22 07:30 Intake & Output 02/19/22 02/20/22 02/20/22 23:59 11:59 23:59 Intake Total 100 / 100 100 / 100 Balance 100 / -100 100 / 100 Intake: Oral 100 / 100 100 / 100 Other: Comment voids independently in toilet pT voids independently Voiding Methods Toilet Toilet Data Completed and Pending Labs on day of discharge: Labs from last 24 hours 02/20/22 05:35 Plt Count Pending [facility] All Active Problems DVT (deep venous thrombosis) (Chronic) Bronchospasm (Chronic) Chest pain (Acute) Pneumonia (Acute) Myalgia (Acute) Alcohol withdrawal (Acute) Depression (Chronic) Suicidal ideation (Acute) Bacteremia (Acute) Cocaine withdrawal (Acute) Osteomyelitis of lower leg, left, acute (Acute) Suicide ideation (Acute) Polysubstance abuse (Chronic) Family History Other Alcohol use disorder Depression Social History Smoking/Tobacco Use Status: Former Tobacco Use Smoking risk assessment performed?: Yes Alcohol Intake: current Alcohol Intake frequency: 3 or more drinks per day Alcohol type: beer and hard liquor Drug use: Occasionally Substance use type: marijuana Details: drinks a case and a half of beer a day and a fifth of vodka. Do you feel safe at home: Yes Do you feel safe in your relationship?: Yes
--- NOTE | 2022-02-20 16:24 | CMDISCH_ITS ---
- If Service Date Differs Date of service: 02/20/22 Time of Service: 16:24 LACE Index Scoring Tool - Questions: Length of Stay (in days): 4 - 6 Acuity (Admit via E.D.?): Yes E.D. Visits: 6 - Answers: Total Score: 11 Risk of Readmission: High Risk Care Management Discharge Reason for Hospitalization: Alohol withdrawal Discharge Plan: William returned home today with no new services. CM connected him with a tennis coach and [facility] for support in the community. He was cleared for discharge by [facility], who created a plan for safety. CM discussed options including inpatient psychiatric/substance use co occuring treatment, and he declined. He coordinated his own ride with friends. He will follow up with his PCP, [facility], and his discharge plan of care. Patient/Family Education Needs: Review discharge instructions and limitations, discussion of self care needs including ask me three.
== END 2022-02-20 15:06 | disposition home or self-care (01) | DRG 897 ==
LOC: ER 22:53 → MS 02-17 00:40
PROVIDERS: Internal Medicine; Nurse Practitioner Family; Physician Assistant; Admitting Provider Family Medicine; Emergency Provider Physician Assistant; Visit Provider Family Medicine
DX: F10.239 Alcohol dependence with withdrawal, unspecified (principal); R45.851 Suicidal ideations; F11.20 Opioid dependence, uncomplicated; F32.A Depression, unspecified; J98.01 Acute bronchospasm; Z87.891 Personal history of nicotine dependence; M79.10 Myalgia, unspecified site; R07.89 Other chest pain; F14.10 Cocaine abuse, uncomplicated; F12.10 Cannabis abuse, uncomplicated
CPT/HCPCS: 36415; 80048; 80053; 80307; 82550; 83690; 87635; 99285; J1650; 36410; 80320; 82607; 82746; 83735; 84100; 84443; 85025; 85049; 85610; 99223; 99231; 99232; 99238

== ENCOUNTER 2022-03-01 13:12 | Inpatient (IN) | payer MEDICAID, SELFPAY ==
[2022-03-01 13:23] VITALS: BP 108/73; PULSE 88; RESP 17; TEMP 36.8; O2SAT 95
--- NOTE | 2022-03-01 13:43 | ED.GENADUL_ITS ---
Discharge Plan Disposition Patient Disposition: STILL A PATIENT Condition: Stable Discharge Details Chief Complaint: PsychEval Clinical Impression: Depression Primary Care Provider: Todd Corey ED Provider: Toi Yi Home Meds and New Rx's Prescriptions: No Action methadone 10 MG/ML concentrate 45 mg PO DAILY fluoxetine 40 mg capsule 80 mg PO DAILY Label Comments: TK 2 CS PO QAM hydroxyzine pamoate 50 mg capsule 50 mg PO Q4H PRN Label Comments: TK 1 C PO Q 4 H PRN loratadine 10 mg tablet 10 mg PO DAILY Label Comments: TK 1 T PO QD albuterol sulfate [Ventolin HFA] 90 mcg/actuation Hfa Aerosol Inhaler 2 puff inhalation Q4H PRN PRNQty: 8.5 0RF cetirizine 10 mg Tablet 10 mg PO HS Qty: 30 0RF cyanocobalamin (vitamin B-12) [Vitamin B-12] 500 mcg Tablet 1,000 mcg PO DAILY Qty: 30 0RF folic acid 1 mg Tablet 1 mg PO QAM Qty: 30 0RF Medical Decision Making This is a 79 this is a 41-year-old male who presents complaining of persistent and recurrent thoughts of suicidal ideation. He was admitted to the hospital from February 16 to and discharged to the community. He states had relapse of use of daily alcohol, heroin. He has not had a history of withdrawal seizures. Patient presents with a temperature of 36.8, pulse 88, blood pressure 108/73, oxygen 95% on room air. Medical screening examination is performed and smart medical clearance performed as a part of this. There is no new onset psychiatric condition, there is no chronic history of diabetes or . Patient does have a history of significant alcohol use and has had mild alcohol withdrawal in the past. This is been managed on many occasions with oral medications and I do not feel requires further investigation. He is not on any medications requiring therapeutic levels. Therefore laboratories were held and a urine drug screen was requested. Patient be signed out to Dr. Coombs pending further mental health evaluation. HPI General Mode of arrival: ambulatory . Date/Time Provider Initiated Documentation: 03/01/22 13:12 . Limitations to Documentation: no limitations . Information obtained by: patient . History of Present Illness 41 year old M presents to the emergency department with the chief complaint of Persistent, described as moderate, Quality is described as dull, Patient reports no radiation. Patient started experiencing this day(s) and it has been cons tant. No relieving factors improve symptom(s), No exacerbating factors reported . Patient notes denies headaches and weakness. Patient did receive the following treatments prior to arrival, none Related Data Home Medications Medication Instructions Recorded Confirmed methadone 10 mg/mL oral concentrate 45 mg PO DAILY 03/31/14 03/01/22 fluoxetine 40 mg capsule 80 mg PO DAILY 10/09/20 03/01/22 hydroxyzine pamoate 50 mg capsule 50 mg PO Q4H PRN 10/09/20 03/01/22 loratadine 10 mg tablet 10 mg PO DAILY 10/09/20 03/01/22 albuterol sulfate 90 mcg/actuation 2 puff inhalation Q4H PRN PRN #8.5 02/20/22 03/01/22 aerosol inhaler (Ventolin HFA) grams cetirizine 10 mg tablet 10 mg PO HS #30 tabs 02/20/22 03/01/22 cyanocobalamin (vitamin B-12) 500 1,000 mcg PO DAILY #30 tabs 02/20/22 03/01/22 mcg tablet (Vitamin B-12) folic acid 1 mg tablet 1 mg PO QAM #30 tabs 02/20/22 03/01/22 Previous Rx's Medication Instructions Recorded albuterol sulfate 90 mcg/actuation 2 puff inhalation Q4H PRN PRN #8.5 02/20/22 aerosol inhaler (Ventolin HFA) grams cetirizine 10 mg tablet 10 mg PO HS #30 tabs 02/20/22 cyanocobalamin (vitamin B-12) 500 1,000 mcg PO DAILY #30 tabs 02/20/22 mcg tablet (Vitamin B-12) folic acid 1 mg tablet 1 mg PO QAM #30 tabs 02/20/22 Allergies Allergy/AdvReac Type Severity Reaction Status Date / Time No Known Allergies Allergy Unverified 03/01/22 13:31 General Stated Complaint: PsychEval RAVEN: 2 Review of Systems Narrative: Has had a really cough. No air hunger or fever PFSH All Active Problems (Updated 03/01/22 @ 16:07 by Toi Yi MD) Depression (Chronic) Chest pain (Acute) Pneumonia (Acute) Myalgia (Acute) Depression (Chronic) Bacteremia (Acute) Cocaine withdrawal (Acute) Osteomyelitis of lower leg, left, acute (Acute) Suicide ideation (Acute) Polysubstance abuse (Chronic) Medical History (Updated 03/01/22 @ 16:07 by Toi Yi MD) Bronchospasm Family History Other Alcohol use disorder Depression Social History Smoking/Tobacco Use Status: Former Tobacco Use Smoking risk assessment performed?: Yes Alcohol Intake: current Alcohol Intake frequency: 3 or more drinks per day Alcohol type: beer and hard liquor Drug use: Occasionally Substance use type: marijuana Details: drinks a case and a half of beer a day and a fifth of vodka. Do you feel safe at home: Yes Do you feel safe in your relationship?: Yes Exam Narrative Exam Narrative: GEN: awake, alert, oriented 3. Pleasant, well groomed, interactive. HEAD: Normocephalic, atraumatic ENT: Mucous membranes moist, oropharynx unremarkable, External ear exam unremarkable EYES: PERRL, EOMI NECK: Full ROM, no ALYSIA, no menigismus CHEST/RESP: Nontender, clear to auscultation bilateral, no wheeze/rhonchi/rales CARDIOVASCULAR: RRR, no murmur, rub jewell. 2+ Rad pulse bilateral ABDOMEN: Soft, nontender, no mass. +Bowel sounds EXT: Full ROM, no edema, areas of track lee both upper extremity volar surfaces Neuro: Grossly normal neurologic exam, conversant, interactive. Psych: Speech fluent, thoughts congruent, affect flat Course Vital Signs Vital signs: Vital Signs Temperature 36.8 C 03/01/22 13:23 Pulse 88 03/01/22 13:23 Respiratory Rate 17 03/01/22 13:23 Blood Pressure 108/73 03/01/22 13:23 Pulse Oximetry 95 03/01/22 13:23 Temperature 36.8 C 03/01/22 13:23 Temperature Source Oral 03/01/22 13:23 Pulse 88 03/01/22 13:23 Respiratory Rate 17 03/01/22 13:23 Respiratory Effort Non-Labored 03/01/22 13:27 Blood Pressure 108/73 03/01/22 13:23 Blood Pressure Position Sitting 03/01/22 13:23 Pulse Oximetry 95 03/01/22 13:23 Oxygen Delivery Method Room Air 03/01/22 13:23 Oxygen Flow Rate 0 03/01/22 13:23 Pain Level 0 03/01/22 13:23 Sign Out Sign Out Data: Sign Out Comment: SI, voluntay, awaits screening Last updated by Toi Yi MD at 03/01/22 15:04 PAWSS Have you Been Recently Intoxicated or Drunk Within the Last 30 days?: Yes Have you Ever Experienced Previous Episodes of Alcohol Withdrawal?: Yes Have you ever Experienced Withdrawal Seizures?: No Have you ever Experienced Delirium Tremens(DT)s?: No Have you ever undergone Alcohol Rehabilitation Treatment (i.e, inpt ot outpatient treatment programs)?: Yes Have you ever Experienced Blackouts?: Yes Have you ever Combined Alcohol with other Downers within the last 90 days?: No Have you ever Combined Alcohol with any other Substance of Abuse during the last 90 days?: Yes Positive Blood Alcohol level on Presentation? [PCS.BAL]: Yes Evidence of Increased Autonomic Activity (i.e. HR>120, tremor, sweating, agitation, nausea)?: No Result: 7
--- NOTE | 2022-03-01 14:01 | NUR.NOTE ---
In patients belongings, we came across a bossman jar with what appeared to be baggies of marijuanna and a blue, glass tube. Those were inventoried and security took those for safe keeping in their office. There were also two used syringes that were found and disposed of in the sharps container, as well as a green bottle cap with white substance in it, witnessed by Reginaldo Singh. All other belongings inventoried and put in the dirty utility room in the ED per protocol.
[2022-03-01 14:52] LABS: COVID-19 PCR Negative (Negative); Influenza A PCR Negative (Negative); Influenza B PCR Negative (Negative); RSV PCR Negative (Negative)
--- NOTE | 2022-03-01 14:52 | CMSP_ITS ---
- If Service Date Differs Date of service: 03/01/22 Time of Service: 14:52 Care Management Safety Plan Status: Voluntary - Reason for Wait Reason for Wait: Inpatient Admission Chief Complaint: William presents in the ED seeking inpatient psychiatric hospitalization for recurrent suicidal ideation. He has a history of substance use and depression and has had several psych hospitalizations in the past. William who is assessed by Angeline [facility] crisis screener, today, meets criteria for a voluntary psych admission. Plan is for him to remain at [facility] and be reassessed by [facility] daily until a bed at an inpatient psych facility can be secured for him. VOLUNTARY FOR INPATIENT PSYCHIATRIC STABILIZATION. Patient is appropriate in all interactions since arriving at [facility]; Pt has demonstrated appropriate coping and communication skills, has articulated his or her needs and concerns and is fully engaged during staff interactions. Safety plan has been established with patient, and care team, to adhere to patient goals, identify restrictions based on behavioral status, address nutrition, and determine allowed personal belongings, tools for hygiene and personal care. Determine level of activity including ambulation, level of sup ervision, visitors, and determine privileges based on behaviors and level of engagement by pt. SAFETY PLAN: 1. Will remain on suicide precautions. In Paper Clothes. 2. Will remain in room under direct supervision of one-on-one staff at all times provided by CPSO, RADHA, ASSISTANT CORPORATION COUNSEL patent solicitor. 3. May have paper cups, plates, finger foods as well as a cardboard spoon with which to eat meals. 4. Follow [facility] Management of the Admitted Behavioral Health Patient policy. 5. Shower permitted with escort at RN discretion. 6. No personal belongings. 7. Visitors: Per [facility] visitor policy and at RN discretion. 8. Activities: soft cart items, music tablet, television, and other activities at RN discretion. 9. Bathroom privileges with escort in the ED, available in room without limitation on M/S. 10. Phone: may use [facility] hospital phone at RN discretion. 11. Due to VOLUNTARY status, if patient wishes to leave [facility], staff will contact [facility] Crisis Screener ([phone]) and On-Call Iap Displays Analyst ([phone]) as soon as possible. In the event of elopement, notify [facility] Police ([phone]). Patient is currently voluntarily at [facility] and seeking inpatient admission when a bed becomes available. [facility] Frontline Spinning Frame Fixer will continue seeking placement. Please contact the Information Assurance Analyst Iap Displays Analyst ([phone]) and [facility] Spinning Frame Fixer ([phone]) for any needed changes in the Safety Plan. Safety plan has been provided to interdepartmental care team.
--- NOTE | 2022-03-01 14:52 | PDOC.CMSAFED ---
- If Service Date Differs Date of service: 03/01/22 Time of Service: 14:52 Care Management Safety Plan Status: Voluntary - Reason for Wait Reason for Wait: Inpatient Admission Chief Complaint: William presents in the ED seeking inpatient psychiatric hospitalization for recurrent suicidal ideation. He has a history of substance use and depression and has had several psych hospitalizations in the past. William who is assessed by Angeline [facility] crisis screener, today, meets criteria for a voluntary psych admission. Plan is for him to remain at [facility] and be reassessed by [facility] daily until a bed at an inpatient psych facility can be secured for him. VOLUNTARY FOR INPATIENT PSYCHIATRIC STABILIZATION. Patient is appropriate in all interactions since arriving at [facility]; Pt has demonstrated appropriate coping and communication skills, has articulated his or her needs and concerns and is fully engaged during staff interactions. Safety plan has been established with patient, and care team, to adhere to patient goals, identify restrictions based on behavioral status, address nutrition, and determine allowed personal belongings, tools for hygiene and personal care. Determine level of activity including ambulation, level of supervision, visitors, and determine privileges based on behaviors and level of engagement by pt. SAFETY PLAN: 1. Will remain on suicide precautions. In Paper Clothes. 2. Will remain in room under direct supervision of one-on-one staff at all times provided by CPSO, TAKER OFF DRYING KILN, FUNERAL WORKERS linecasting machine keyboard operator. 3. May have paper cups, plates, finger foods as well as a cardboard spoon with which to eat meals. 4. Follow [facility] Management of the Admitted Behavioral Health Patient policy. 5. Shower permitted with escort at RN discretion. 6. No personal belongings. 7. Visitors: Per [facility] visitor policy and at RN discretion. 8. Activities: soft cart items, music tablet, television, and other activities at RN discretion. 9. Bathroom privileges with escort in the ED, available in room without limitation on M/S. 10. Phone: may use [facility] hospital phone at RN discretion. 11. Due to VOLUNTARY status, if patient wishes to leave [facility], staff will contact [facility] Crisis Screener ([phone]) and On-Call Recreation Worker ([phone]) as soon as possible. In the event of elopement, notify [facility] Police ([phone]). Patient is currently voluntarily at [facility] and seeking inpatient admission when a bed becomes available. [facility] Frontline Building Maintenance Mechanic will continue seeking placement. Please contact the Gear Design Engineer Recreation Worker ([phone]) and [facility] Building Maintenance Mechanic ([phone]) for any needed changes in the Safety Plan. Safety plan has been provided to interdepartmental care team.
[2022-03-01 14:54] LABS: Source Nasopharynx
[2022-03-01 17:04] LABS: *AMPHETAMINES SCREEN URINE Positive (Negative); *BARBITURATES SCREEN URINE Negative (Negative); *BENZODIAZEPINES SCREEN URINE Positive (Negative); Cannabinoids THC Positive (Negative); Cocaine Screen,Urine Positive (Negative); METHADONE URINE SCREEN Positive (Negative); OPIATES URINE SCREEN Negative (Negative)
[2022-03-01 17:15] LABS: Tricyclic Antidepressants Negative (Negative)
--- NOTE | 2022-03-01 19:54 | W.EDPROG ---
Date of service: 03/01/22 Time of Service: 18:54 Medical Decision Making Care signed out by Dr. Yi with plan to follow-up on crisis screener recommendations. Patient was seen by [facility] services crisis screener who recommends hospitalization. Patient is here voluntarily seeking treatment. Patient observed in the emergency department and exhibited normal behavior. Plan to hospitalize while awaiting transfer to psychiatric treatment facility. Patient should be monitored for withdrawal symptoms. He has exhibited no withdrawal symptoms here in emergency department. Sign Out Sign Out Data: Sign Out Comment: SI, voluntay, awaits screening Last updated by Toi Yi MD at 03/01/22 15:04 Discharge Plan Disposition Patient Disposition: [facility] INPATIENT Condition: Serious Discharge Details Clinical Impression: Depression, Polysubstance abuse Primary Care Provider: Todd Corey ED Provider: Carlos Coombs Home Meds and New Rx's Prescriptions: No Action methadone 10 MG/ML concentrate 45 mg PO DAILY fluoxetine 40 mg capsule 80 mg PO DAILY Label Comments: TK 2 CS PO QAM hydroxyzine pamoate 50 mg capsule 50 mg PO Q4H PRN Label Comments: TK 1 C PO Q 4 H PRN loratadine 10 mg tablet 10 mg PO DAILY Label Comments: TK 1 T PO QD albuterol sulfate [Ventolin HFA] 90 mcg/actuation Hfa Aerosol Inhaler 2 puff inhalation Q4H PRN PRNQty: 8.5 0RF cetirizine 10 mg Tablet 10 mg PO HS Qty: 30 0RF cyanocobalamin (vitamin B-12) [Vitamin B-12] 500 mcg Tablet 1,000 mcg PO DAILY Qty: 30 0RF folic acid 1 mg Tablet 1 mg PO QAM Qty: 30 0RF
[2022-03-02 00:03] VITALS: BP 138/84; PULSE 64; TEMP 37.1; O2SAT 95
[2022-03-02 00:31] VITALS: BP 124/78; PULSE 57; RESP 18; TEMP 37; O2SAT 96
--- NOTE | 2022-03-02 01:13 | HPE_ITS ---
Date of service: 03/02/22 Time of Service: 00:13 Assessment and Plan Assessment and plan (1) Depression: Status: Chronic Assessment and plan: His current symtoms are c/w MDD. Despite being on SSRI and off mood stabilizers, he is not exibiting signs of kristofer right now. Will continue fluoxetine. I looked back at PCP record and it mentions he was on abilify and that he would see mental health, not a clear decision to stop this, so I will prescribe. Gabapentin was stopped because it was not in his system at his initial visit, thought it was there at the last visit. There is a concern for diversion and abuse. He was also on lamotrigine in the past. Further medication changes deferred to psychiatric provider. (2) Polysubstance abuse: Status: Acute Assessment and plan: This is complicating his mood disorder, has also led to withholding of abusable medications, probably appropriately. He needs dual diagnosis treatment plan. (3) Alcohol withdrawal: Status: Acute Assessment and plan: He is starting to exibit clear signs of alcohol withdrawal. He has no known in history of complicated withdrawal or seizurs by report or in PCP record. I initially wrote for lorazepam protocol as he did not have history of severe withdrawal/DTs, methadone is a contraindication to phenobarbitol. However looking at his symptoms I added some scheduled diazepam as well. Monitor for signs of respiratory depression. (4) Bronchospasm: Status: Acute Assessment and plan: He likely has COPD. Albuterol prn for now, should have PFTs as outpatient. (5) Chronic deep vein thrombosis (DVT): Status: Acute Assessment and plan: He reports apixaban therapy for DVT. This is not on his med list, but I did find a LE doppler with deep and superficial LLE DVT that is reported as chronic in 09/02 and improved since 12/31. He was prescribed apixaban in the past, thoug h I don't see continuous prescriptions. I will treat him with apixaban, also get INR given liver disease though he has no h/o cirrhosis (6) Opioid dependence on agonist therapy: Status: Acute Assessment and plan: Recent dose reduction from 90mg due to illicit benzodiazepine use. I wrote for his 45mg methadone, should be confrimed by [facility]. (7) Alcohol dependence: Status: Acute Assessment and plan: He should be offered comprehensive treatment including medical and behavioral care once he is through withdrawal. He has recent nutritional labs and was low on B12 and folate and he is getting suppluments of these as well as thiamnie per prototocol. I added CMP and mag, has hepatitis B and C on problem list as well but labs from early February 2022 not consistent with liver fibrosis. (8) Discharge planning issues: Status: Acute Assessment and plan: He is medical inpatient now to treat active EtOH withdrawal. Placement at psychiatric facility once he is through this and cleared. History of Present Illness History of Present Illness Chief Complaint: siucidal ideation Narrative: 41 yo M with long history of major depression vs bipolar disorder, alcohol dependance, and polysubstance abuse with opioid dependance on maintenance t herapy with methadone who presented to the emergency department today with depression and suicidal ideation. He states he would have if he didn't come in. States he relapsed on heroin and methamphetamines this week after avoiding these for years. He recently had aripiprazole and gabapentin stopped by his PCP 2 weeks ago due to having cocaine in his system and he had his methadone dose cut from 90mg to 45mg due to benzodiazepine use. He identifies both these as triggers for worsening depression and substance use. He wants help from psychiatric provider. He feels safe now that he is in the hospital. His last alcohol was about 10am on the day prior to admission (writing at 1am). He has started to shake his legs, which happens when he doesn't drink. He was drinking a case of beer and a 5th of liquor a day for over a year. Review of Systems Narrative: GEN: No fever of chills. No weight loss or gain HEENT: +diffuse headache. no rhinorrhea/congestion. no eye pain or vision changes. some mild sore throat. RESP: Has chronic cough, worse with deep breath. Takes inhaler at home. no sputum or blood. feels some dyspnea CV: no chest pain or palpitations, no LE edema ABD: no nausea, vomiting, diarrhea, or constipation : no dysuria or hematuria MSK: Has chronic left leg and back pain. no new joint swelling/pain. Skin: no open wounds or new rashes. Has chronic redness left side, swells when he is on his feet. HEME: No bleeding or LAD NEURO: No numbness or weakness focally. not dizzy. Psych: see HPI. no visual, tactile or aditory hallucination. no h/o seizures PFSH All Active Problems (Updated 03/02/22 @ 08:46 by Madan Palafox) Opioid dependence on agonist therapy (Acute) Alcohol dependence (Acute) Chronic deep vein thrombosis (DVT) (Acute) Discharge planning issues (Acute) Bronchospasm (Acute) Alcohol withdrawal (Acute) Depression (Chronic) Polysubstance abuse (Acute) Myalgia (Acute) Cocaine withdrawal (Acute) Suicide ideation (Acute) Polysubstance abuse (Chronic) Medical History (Updated 03/02/22 @ 08:46 by Madan Palafox) Hepatitis B Hepatitis C History of osteomyelitis Family History Other Alcohol use disorder Depression Social History (Updated 03/02/22 @ 08:47 by Madan Palafox) Smoking/Tobacco Use Status: Former Tobacco Use Smoking risk assessment performed?: Yes Alcohol Intake: current Alcohol Intake frequency: 3 or more drinks per day Alcohol type: beer and hard liquor Drug use: Occasionally Substance use type: marijuana Details: drinks a case and a half of beer a day and a fifth of vodka. Do you feel safe at home: Yes Do you feel safe in your relationship?: Yes Additional Social history: Currently homeless. [facility] 13 [facility] not [facility]. Meds Allergies and Home Medications Allergies Allergy/AdvReac Type Severity Reaction Status Date / Time No Known Allergies Allergy Unverified 03/01/22 13:31 Home Medications Medication Instructions Recorded Confirmed Type methadone 10 mg/mL oral concentrate 45 mg PO DAILY 03/31/14 03/01/22 History fluoxetine 40 mg capsule 80 mg PO DAILY 10/09/20 03/01/22 History hydroxyzine pamoate 50 mg capsule 50 mg PO Q4H PRN 10/09/20 03/01/22 History loratadine 10 mg tablet 10 mg PO DAILY 10/09/20 03/01/22 History albuterol sulfate 90 mcg/actuation 2 puff inhalation Q4H PRN PRN #8.5 02/20/22 03/01/22 Rx aerosol inhaler (Ventolin HFA) grams cetirizine 10 mg tablet 10 mg PO HS #30 tabs 02/20/22 03/01/22 Rx cyanocobalamin (vitamin B-12) 500 1,000 mcg PO DAILY #30 tabs 02/20/22 03/01/22 Rx mcg tablet (Vitamin B-12) folic acid 1 mg tablet 1 mg PO QAM #30 tabs 02/20/22 03/01/22 Rx Exam Narrative Exam Narrative: GEN: Alert and oriented, appears depressed but cooperative, gives linear history. No acute distress at rest. HEENT: Head atraumatic. Conjunctiva clear, no icterus. PEERL about 4mm in room light, EOMI. no rhinorrhea. MMM, OP benign. Neck is supple with no masses or lymphadenopathy, trachea midline LUNGS: CTAB with normal effort CV: RRR with no murmurs, gallops, or rubs. ABD: +BS, soft, NT/ND EXT: no cyanosis, clubbing. see skin re: legs. trace LLE edema MSK: No joint redness or swelling NEURO: CN 2-12 grossly intact. Normal movement of 4 extremities. Normal speech and coordination. tremulous in legs. SKIN: red patches with some scarring scattered in LE more diffusely red on left. Mildly tender to palpation. No open wounds/abscesses PSYCH: normal mood and depressed. normal thought process. no hallucinations. Results Labs Result diagrams: 03/02/22 08:24 Labs: Laboratory Results - last 24 hr 03/01/22 03/01/22 14:06 15:56 Urine Opiates Screen Negative Urine Methadone Screen Positive A Ur Barbiturates Screen Negative Ur Tricyclics Screen Negative Ur Amphetamines Screen Positive A U Benzodiazepines Scrn Positive A Urine Cocaine Screen Positive A Ur THC Screen Positive A COVID-19 Source Nasopharynx SARS-CoV-2 (PCR) Negative Influenza Type A (PCR) Negative Influenza Type B (PCR) Negative RSV (PCR) Negative Last Vital Signs Temp 37 C 03/02/22 00:31 Pulse 57 L 03/02/22 00:31 Resp 18 03/02/22 00:31 BP 124/78 03/02/22 00:31 Pulse Ox 96 03/02/22 00:31 PAWSS Have you Been Recently Intoxicated or Drunk Within the Last 30 days?: Yes Have you Ever Experienced Previous Episodes of Alcohol Withdrawal?: Yes Have you ever Experienced Withdrawal Seizures?: No Have you ever Experienced Delirium Tremens(DT)s?: No Have you ever undergone Alcohol Rehabilitation Treatment (i.e, inpt ot outpatient treatment programs)?: Yes Have you ever Experienced Blackouts?: Yes Have you ever Combined Alcohol with other Downers within the last 90 days?: No Have you ever Combined Alcohol with any other Substance of Abuse during the last 90 days?: Yes Positive Blood Alcohol level on Presentation? [PCS.BAL]: Yes Evidence of Increased Autonomic Activity (i.e. HR>120, tremor, sweating, agitation, nausea)?: No Result: 7
[2022-03-02] MEDS: diazePAM 5 MG TAB PO ×2 (01:41→08:19)
[2022-03-02] MEDS: LORazepam 1 MG TAB PO/SL ×6 (03:14→22:59)
[2022-03-02] MEDS: Multivitamin TAB 1 TAB PO (08:18)
[2022-03-02 08:19] VITALS: BP 102/68; PULSE 62; RESP 17; TEMP 35.4; O2SAT 94
[2022-03-02] MEDS: Cyanocobalamin 500 MCG TAB 1000 MCG PO (08:19)
[2022-03-02] MEDS: Thiamine 100 MG TAB PO (08:19)
[2022-03-02] MEDS: Folic Acid 1 MG TAB PO (08:19)
[2022-03-02] MEDS: Methadone 5 MG TAB PO (08:20)
[2022-03-02] MEDS: FLUoxetine 20 MG CAP 80 MG PO (08:23)
[2022-03-02] MEDS: ARIPiprazole 5 MG TAB PO (09:13)
[2022-03-02] MEDS: Apixaban 5 MG TAB PO ×2 (09:13→20:51)
[2022-03-02] MEDS: Methadone Liquid 10 MG/ML 40 MG PO (10:48)
[2022-03-02] MEDS: chlordiazePOXIDE 25 MG CAP 50 MG PO ×3 (11:02→20:52)
[2022-03-02 11:17] LABS: Prothrombin Time 10.3 sec (9.3-11.0)
[2022-03-02 11:22] LABS: ALT 25 U/L (16-63); AST 33 U/L (15-37); Albumin 2.9 g/dL (3.4-5.0); Alkaline Phosphatase 99 U/L (46-116); Anion Gap 4.8 mmol/L (3-11); BUN 5 mg/dL (7-18); Bilirubin, Total 0.5 mg/dL (0.2-1.0); CO2 27.2 mmol/L (21.0-32.0); CREATININE 0.7 mg/dL (0.70-1.30); Calcium 8.9 mg/dL (8.5-10.1); Chloride 102 mmol/L (98-107); Glucose 107 mg/dL (74-106); Potassium 3.7 mmol/L (3.5-5.1); Sodium 134 mmol/L (136-145); Total Protein 7.1 g/dL (6.4-8.2)
[2022-03-02 15:48] VITALS: BP 123/76; PULSE 64; RESP 18; TEMP 35.2; O2SAT 94
--- NOTE | 2022-03-02 16:49 | CMSP_ITS ---
- If Service Date Differs Date of service: 03/02/22 Time of Service: 16:49 Care Management Safety Plan Status: Voluntary - Reason for Wait Reason for Wait: Medical Clearance VOLUNTARY FOR INPATIENT PSYCHIATRIC STABILIZATION. Patient is appropriate in all interactions since arriving at [facility]; Pt has demonstrated appropriate coping and communication skills, has articulated his or her needs and concerns and is fully engaged during staff interactions. A decentralized huddle is done with Lissy, nursing railroad supervisor of engines, Megan, coordinator, and ALEA Obando. Safety plan has been established with patient, and care team, to adhere to p atient goals, identify restrictions based on behavioral status, address nutrition, and determine allowed personal belongings, tools for hygiene and personal care. Determine level of activity including ambulation, level of supervision, visitors, and determine privileges based on behaviors and level of engagement by pt. SAFETY PLAN: 1. Will remain on suicide precautions. In Paper Clothes. 2. Will remain in room under direct supervision of one-on-one staff at all times provided by CPSO, RADHA, SALES REPRESENTATIVE MEATS railroad supervisor of engines. 3. May have paper cups, plates, finger foods as well as a cardboard spoon with which to eat meals. 4. Follow [facility] Management of the Admitted Behavioral Health Patient policy. 5. Shower permitted with escort at RN discretion. 6. No personal belongings. 7. Visitors: Limited to Janki rodríguez, at RN discretion. 8. Activities: soft cart items, music tablet, television, and other activities at RN discretion. 9. Bathroom privileges with escort in the ED, available in room without limi tation on M/S. 10. Phone: may use [employer] phone at RN discretion. 11. Due to VOLUNTARY status, if patient wishes to leave [facility], staff will contact [facility] Crisis Screener ([phone]) and On-Call Gas Maker Helper ([phone]) as soon as possible. In the event of elopement, notify [facility] Police ([phone]). Patient is currently voluntarily at [facility] and seeking inpatient admission when a bed becomes available. [facility] Frontline Commissary Helper will continue seeking placement. Please contact the Aircraft Time Clerk Gas Maker Helper ([phone]) and [facility] Commissary Helper ([phone]) for any needed changes in the Safety Plan. Safety plan has been provided to interdepartmental care team.
--- NOTE | 2022-03-02 16:49 | PDOC.CMSAFE ---
- If Service Date Differs Date of service: 03/02/22 Time of Service: 16:49 Care Management Safety Plan Status: Voluntary - Reason for Wait Reason for Wait: Medical Clearance VOLUNTARY FOR INPATIENT PSYCHIATRIC STABILIZATION. Patient is appropriate in all interactions since arriving at [facility]; Pt has demonstrated appropriate coping and communication skills, has articulated his or her needs and concerns and is fully engaged during staff interactions. A decentralized huddle is done with Lissy, nursing heavy equipment supervisor, Megan, coordinator, and ALEA Obando. Safety plan has been established with patient, and care team, to adhere to patient goals, identify restrictions based on behavioral status, address nutrition, and determine allowed personal belongings, tools for hygiene and personal care. Determine level of activity including ambulation, level of supervision, visitors, and determine privileges based on behaviors and level of engagement by pt. SAFETY PLAN: 1. Will remain on suicide precautions. In Paper Clothes. 2. Will remain in room under direct supervision of one-on-one staff at all times provided by CPSO, RADHA, BLAST FURNACE BLOWER programming director. 3. May have paper cups, plates, finger foods as well as a cardboard spoon with which to eat meals. 4. Follow [facility] Management of the Admitted Behavioral Health Patient policy. 5. Shower permitted with escort at RN discretion. 6. No personal belongings. 7. Visitors: Limited to Janki rodríguez, at RN discretion. 8. Activities: soft cart items, music tablet, television, and other activities at RN discretion. 9. Bathroom privileges with escort in the ED, available in room without limitation on M/S. 10. Phone: may use [employer] phone at RN discretion. 11. Due to VOLUNTARY status, if patient wishes to leave [facility], staff will contact [facility] Crisis Screener ([phone]) and On-Call Manager Program ([phone]) as soon as possible. In the event of elopement, notify [place] Police ([phone]). Patient is currently voluntarily at [facility] and seeking inpatient admission when a bed becomes available. [facility] Frontline Chief Procurement Officer will continue seeking placement. Please contact the Blankbook Stitching Machine Operator Manager Program ([phone]) and [facility] Chief Procurement Officer ([phone]) for any needed changes in the Safety Plan. Safety plan has been provided to interdepartmental care team.
[2022-03-02] MEDS: Cetirizine 10 MG TAB PO (20:51)
[2022-03-02 23:08] VITALS: BP 125/72; PULSE 66; RESP 18; TEMP 36.6; O2SAT 97
--- NOTE | 2022-03-03 | DI.RAD_ITS ---
Exam(s) XR CHEST 2V PA LATERAL EXAM: XR CHEST 2V PA LATERAL CLINICAL HISTORY: Cough, low SPO2 TECHNIQUE: 2D digital imaging was performed of the chest. Images were obtained. PA and lateral v iews were obtained. COMPARISON: CR XR CHEST 2V PA LATERAL from 07/17/[address] CHEST W from 08/13/2021 FINDINGS: MEDIASTINUM: Normal. HEART: Normal. PULMONARY VASCULATURE: Normal. LUNGS: The pulmonary infiltrates have a similar appearance compared to the chest x-ray from 07/17/2021 . No new infiltrates are seen. PLEURAL SPACE: No pleural effusion or pneumothorax. BONE:Within normal limits for the patient's age. OTHER FINDINGS:Normal. IMPRESSION: Persistent bilateral pulmonary infiltrates. A noncontrast CT scan of the chest may be considered for further evaluation. DATA REPOSITORY: RADIATION DOSE DELIVERED:
[2022-03-03 06:52] LABS: Abs Immature Grans 0.02 10^3/uL (0.0-0.06); Absolute Basophil Count 0.02 10^3/uL (0.0-0.2); Absolute Lymphocyte Count 2.59 10^3/uL (1.2-3.4); Absolute Monocyte Count 0.65 10^3/uL (0.1-0.8); Absolute Neutrophil Count 3.01 10^3/uL (1.2-6.7); Basophils % 0.3; Eosinophils % 4.6; HCT 38.5 % (40.0-50.0); Immature Grans % 0.3; Lymphocytes % 39.3; MCH 27.7 pg (27.0-33.0); MCHC 31.2 % (32.0-36.0); MCV 89 fL (80-95); MPV 8.9 fL (8.0-11.0); Monocytes % 9.9; Neutrophils % 45.6; Platelet Count 358 10^3/uL (130-400); RBC 4.33 10^6/uL (4.36-5.78); RDW 16.7 % (11.8-14.1); RDW-SD 54.4 fL; WBC 6.59 10^3/uL (4.4-10.8)
[2022-03-03 07:07] LABS: ALT 22 U/L (16-63); AST 20 U/L (15-37); Albumin 2.8 g/dL (3.4-5.0); Alkaline Phosphatase 92 U/L (46-116); BUN 6 mg/dL (7-18); Bilirubin, Total 0.3 mg/dL (0.2-1.0); CREATININE 0.7 mg/dL (0.70-1.30); Calcium 8.5 mg/dL (8.5-10.1); Chloride 104 mmol/L (98-107); Glucose 91 mg/dL (74-106); Potassium 3.7 mmol/L (3.5-5.1); Sodium 139 mmol/L (136-145); Total Protein 6.9 g/dL (6.4-8.2)
[2022-03-03] MEDS: ARIPiprazole 5 MG TAB PO (09:52)
[2022-03-03] MEDS: Multivitamin TAB 1 TAB PO (09:53)
[2022-03-03] MEDS: chlordiazePOXIDE 25 MG CAP 50 MG PO ×4 (09:53→20:00)
[2022-03-03] MEDS: Thiamine 100 MG TAB PO (09:53)
[2022-03-03] MEDS: Cyanocobalamin 500 MCG TAB 1000 MCG PO (09:53)
[2022-03-03] MEDS: Apixaban 5 MG TAB PO ×2 (09:53→20:44)
[2022-03-03] MEDS: Folic Acid 1 MG TAB PO (09:54)
[2022-03-03] MEDS: FLUoxetine 20 MG CAP 80 MG PO (09:54)
[2022-03-03] MEDS: Methadone Liquid 10 MG/ML 45 MG PO (09:54)
[2022-03-03] MEDS: Albuterol HFA 8 GM 60 PUFF INH IH (10:07)
[2022-03-03 10:13] VITALS: BP 107/68; PULSE 64; RESP 21; TEMP 36.5; O2SAT 88
[2022-03-03 10:30] VITALS: O2SAT 92
--- NOTE | 2022-03-03 13:10 | DI.VRAD_ITS ---
PROCEDURE INFORMATION: Exam: XR Chest Exam date and time: 03/03/2022 12:53 PM Age: 41 years old Clinical indication: Pain; Other: Cough, low oxygen TECHNIQUE: Imaging protocol: XR of the chest. Views: 2 views. COMPARISON: CT CHEST W 10/23/2020 11:33 FINDINGS: Lungs: Bilateral perihilar infiltrates with peribronchial thickening. Infiltrate involving the anterior segment of the left lower lobe, the right middle lobe, and the right upper lobe. Fullness of the hilum of concern for adenopathy. Pleural spaces: Unremarkable. No pleural effusion. No pneumothorax. Heart/Mediastinum: Stable cardiomediastinal silhouette. Bones/joints: Unremarkable for patient's age. IMPRESSION: Bilateral pneumonia. Dictated and Authenticated by: Hamida Dougherty MD. Ordering:EDUARD Hernandes MD
[2022-03-03 13:43] VITALS: BP 112/62; PULSE 67; RESP 19; TEMP 36.7; O2SAT 94
[2022-03-03] MEDS: LORazepam 1 MG TAB PO/SL (14:05)
--- NOTE | 2022-03-03 15:19 | PDOC.CMSAFE ---
- If Service Date Differs Date of service: 03/03/22 Time of Service: 15:19 Care Management Safety Plan Status: Voluntary - Reason for Wait Reason for Wait: Medical Clearance William continues on CIWA protocol. A chest x-ray ordered today due to cough and low oxygen reveals bilateral perihilar infiltrates with peribronchial thickening. Plan remains for William to be assessed for suicidal ideation by [facility] once he is medically cleared. No changes are being made to the safety plan at this time. CM will continue to follow. VOLUNTARY FOR INPATIENT PSYCHIATRIC STABILIZATION. Patient is appropriate in all interactions since arriving at [facility]; Pt has demonstrated appropriate coping and communication skills, has articulated his or her needs and concerns and is fully engaged during staff interactions. Safety plan has been established with patient, and care team, to adhere to patient goals, identify restrictions based on behavioral status, address nutrition, and determine allowed personal belongings, tools for hygiene and personal care. Determine level of activity including ambulation, level of supervision, visitors, and determine privileges based on behaviors and level of engagement by pt. SAFETY PLAN: 1. Will remain on suicide precautions. In Paper Clothes. 2. Will remain in room under direct supervision of one-on-one staff at all times provided by CPSO, SECURITY AND COMPLIANCE ANALYST, METAL WIRE TECHNICIAN application integrator. 3. May have paper cups, plates, finger foods as well as a cardboard spoon with which to eat meals. 4. Follow [facility] Management of the Admitted Behavioral Health Patient policy. 5. Shower permitted with escort at RN discretion. 6. No personal belongings. 7. Visitors: Limited to Janki rodríguez, at RN discretion. 8. Activities: soft cart items, music tablet, television, and other activities at RN discretion. 9. Bathroom privileges with escort in the ED, available in room without limitation on M/S. 10. Phone: may use [employer] hospital phone at RN discretion. 11. Due to VOLUNTARY status, if patient wishes to leave [facility], staff will contact [facility] Crisis Screener ([phone]) and On-Call Credit Professional ([phone]) as soon as possible. In the event of elopement, notify [facility] Police ([phone]). Patient is currently voluntarily at [facility] and seeking inpatient admission when a bed becomes available. [facility] Frontline Contact Lens Molder will continue seeking placement. Please contact the Refinery Operator Visbreaking Credit Professional ([phone]) and [facility] Contact Lens Molder ([phone]) for any needed changes in the Safety Plan. Safety plan has been provided to interdepartmental care team.
[2022-03-03 15:22] VITALS: BP 109/66; PULSE 58; RESP 19; TEMP 36.6; O2SAT 93
--- NOTE | 2022-03-03 17:53 | PGE_ITS ---
Date of Service Date of service: 03/03/22 Time of Service: 16:53 Assessment and Plan Assessment and plan (1) Depression: Status: Chronic Assessment and plan: Will continue fluoxetine, once medically cleared will have mental health see him (2) Polysubstance abuse: Status: Acute Assessment and plan: This is complicating his mood disorder, has also led to withholding of abusable medications, probably appropriately. He needs dual diagnosis treatment plan. (3) Alcohol withdrawal: Status: Acute Assessment and plan: He continues to have clear signs of alcohol withdrawal. He is on lorazepam protocol because he takes methadone and pehnobarbitol is contraindicated. He does not have a history of seizures. CIWA 10 (4) Bronchospasm: Status: Acute Assessment and plan: He likely has COPD. Albuterol prn for now, should have PFTs as outpatient. (5) Chronic deep vein thrombosis (DVT): Status: Acute Assessment and plan: History of DVT, taking apixiban in the past. Apixaban was started - INR 1.0 (6) Opioid dependence on agonist therapy: Status: Acute Assessment and plan: 45mg methadone started, dose is unclear and should be confimed by HUNTER. (7) Alcohol dependence: Status: Acute Assessment and plan: He should be offered comprehensive treatment including medical and behavioral care once he is through withdrawal. He has recent nutritional labs and was low on B12 and folate and he is getting suppluments of these as well as thiamnie per prototocol. I added CMP and mag, has hepatitis B and C on problem list as well but labs from early February 2022 not consistent with liver fibrosis. (8) Discharge planning issues: Status: Acute Assessment and plan: He is medical inpatient now to treat active EtOH withdrawal. Placement at psychiatric facility once he is through this and cleared. Subjective Subjective Patient reports: no new complaints Interval history since last seen: Continues to need lorazepam CIWA 10 Exam Narrative Exam Narrative: GEN: Alert and oriented, cooperative. No acute distress at rest. HEENT: Head atraumatic. Conjunctiva clear, no icterus. PEERL about 4mm in room light, EOMI. no rhinorrhea. MMM, Neck is supple with no masses or lym phadenopathy, trachea midline LUNGS: CTAB with normal effort CV: RRR with no murmurs, gallops, or rubs. ABD: +BS, soft, NT/ND EXT: no cyanosis, clubbing. see skin re: legs. trace BLE edema MSK: No joint redness or swelling NEURO: CN 2-12 grossly intact. Normal movement of 4 extremities. Normal speech and coordination. tremulous in legs. SKIN: red patches with some scarring scattered in LE more diffusely red on left. Mildly tender to palpation. No open wounds/abscesses PSYCH: normal mood , normal thought process. no hallucinations. Const General: cooperative Other: Agitated [facility] Head: normal to inspection Mouth: oral mucosae normal Other: Uvula midline Eyes Sclera: sclerae normal Pupils: PERRL Other: PERRLA Neck Other: No meningismus Resp Effort & Inspection: normal respiratory effort Auscultation: clear to auscultation bilaterally Cardio Rate: regular rate Rhythm: regular rhythm Other: No murmur GI Other: Nontender abdominal exam Skin General skin exam: no rashes or lesions noted Neuro General: patient alert and patient oriented x3 Cranial Nerves: CN's II-XI intact bilaterally Extrem General: normal to inspection Other: Distal pulses intact, strength and sensation intact distally Objective Last Vital Signs Temp 36.6 C 03/03/22 15:22 Pulse 58 L 03/03/22 15:22 Resp 19 03/03/22 15:22 BP 109/66 03/03/22 15:22 Pulse Ox 93 03/03/22 15:22 Laboratory Results - last 24 hr 03/03/22 03/03/22 06:45 06:45 WBC 6.59 RBC 4.33 L Hgb 12.0 L Hct 38.5 L MCV 89 MCH 27.7 MCHC 31.2 L RDW 16.7 H Plt Count 358 MPV 8.9 Immature Gran % 0.3 Neutrophils % 45.6 Lymphocytes % 39.3 Monocytes % 9.9 Eosinophils % 4.6 Basophils % 0.3 Nucleated RBC % 0.0 Absolute Neutrophils 3.01 Absolute Lymphocytes 2.59 Absolute Monocytes 0.65 Absolute Eosinophils 0.30 Absolute Basophils 0.02 Sodium 139 Potassium 3.7 Chloride 104 Carbon Dioxide 28.0 Anion Gap 7.0 BUN 6 L Creatinine 0.7 Estimated GFR/1.73 m2 >= 60.00 Glucose 91 Calcium 8.5 Total Bilirubin 0.3 AST 20 ALT 22 Alkaline Phosphatase 92 Total Protein 6.9 Albumin 2.8 L Reviewed Pertinent PMH: Yes PAWSS Have you Been Recently Intoxicated or Drunk Within the Last 30 days?: Yes Have you Ever Experienced Previous Episodes of Alcohol Withdrawal?: Yes Have you ever Experienced Withdrawal Seizures?: No Have you ever Experienced Delirium Tremens(DT)s?: No Have you ever undergone Alcohol Rehabilitation Treatment (i.e, inpt ot outpatient treatment programs)?: Yes Have you ever Experienced Blackouts?: Yes Have you ever Combined Alcohol with other Downers within the last 90 days?: No Have you ever Combined Alcohol with any other Substance of Abuse during the last 90 days?: Yes Positive Blood Alcohol level on Presentation? [PCS.BAL]: Yes Evidence of Increased Autonomic Activity (i.e. HR>120, tremor, sweating, agitation, nausea)?: No Result: 7
[2022-03-03] MEDS: Cetirizine 10 MG TAB PO (21:15)
[2022-03-03 23:20] VITALS: BP 119/72; PULSE 58; RESP 16; TEMP 36.9; O2SAT 93
[2022-03-04 07:02] LABS: Absolute Basophil Count 0.03 10^3/uL (0.0-0.2); Absolute Eosinophil Count 0.28 10^3/uL (0.0-0.7); Absolute Lymphocyte Count 2.67 10^3/uL (1.2-3.4); Absolute Monocyte Count 0.55 10^3/uL (0.1-0.8); Absolute Neutrophil Count 2.44 10^3/uL (1.2-6.7); Basophils % 0.5; Eosinophils % 4.7; HGB 12.6 g/dL (13.5-17.5); Lymphocytes % 44.7; MCH 27.7 pg (27.0-33.0); MCHC 30.7 % (32.0-36.0); MCV 90 fL (80-95); MPV 9.1 fL (8.0-11.0); Monocytes % 9.2; Neutrophils % 40.9; Platelet Count 369 10^3/uL (130-400); RBC 4.55 10^6/uL (4.36-5.78); RDW 17.2 % (11.8-14.1); RDW-SD 56.5 fL; WBC 5.97 10^3/uL (4.4-10.8)
[2022-03-04 07:15] LABS: Anion Gap 6.8 mmol/L (3-11); BUN 5 mg/dL (7-18); CO2 27.2 mmol/L (21.0-32.0); CREATININE 0.8 mg/dL (0.70-1.30); Calcium 9.1 mg/dL (8.5-10.1); Chloride 106 mmol/L (98-107); Glucose 93 mg/dL (74-106); Potassium 3.5 mmol/L (3.5-5.1); Sodium 140 mmol/L (136-145)
[2022-03-04 09:13] VITALS: BP 117/73; PULSE 56; RESP 17; TEMP 36.6; O2SAT 95
[2022-03-04] MEDS: Methadone Liquid 10 MG/ML 45 MG PO (09:31)
[2022-03-04] MEDS: ARIPiprazole 5 MG TAB PO (09:32)
[2022-03-04] MEDS: Folic Acid 1 MG TAB PO (09:32)
[2022-03-04] MEDS: Multivitamin TAB 1 TAB PO (09:32)
[2022-03-04] MEDS: Cyanocobalamin 500 MCG TAB 1000 MCG PO (09:32)
[2022-03-04] MEDS: Thiamine 100 MG TAB PO (09:32)
[2022-03-04] MEDS: FLUoxetine 20 MG CAP 80 MG PO (09:32)
[2022-03-04] MEDS: chlordiazePOXIDE 25 MG CAP 50 MG PO ×4 (09:32→20:38)
[2022-03-04] MEDS: Apixaban 5 MG TAB PO ×2 (09:32→20:38)
[2022-03-04] MEDS: Albuterol HFA 8 GM 60 PUFF INH IH (11:35)
--- NOTE | 2022-03-04 11:37 | PDOC.CMSAFE ---
- If Service Date Differs Date of service: 03/04/22 Time of Service: 11:42 Care Management Safety Plan Status: Interim - Reason for Wait Reason for Wait: Medical Clearance William continues on CIWA protocol. Plan remains for William to be assessed for suicidal ideation by [facility] once he is medically cleared. He met with Kaye, Sequencing Machine Operator today, who stated that she will attempt to visit him daily, as she would like to support his plan for inpatient psychiatric treatment. No changes are being made to the safety plan at this time. CM will continue to follow. VOLUNTARY FOR INPATIENT PSYCHIATRIC STABILIZATION. Patient is appropriate in all interactions since arriving at [facility]; Pt has demonstrated appropriate coping and communication skills, has articulated his or her needs and concerns and is fully engaged during staff interactions. Safety plan has been established with patient, and care team, to adhere to patient goals, identify restrictions based on behavioral status, address nutrition, and determine allowed personal belongings, tools for hygiene and personal care. Determine level of activity including ambulation, level of supervision, visitors, and determine privileges based on behaviors and level of engagement by pt. SAFETY PLAN: 1. Will remain on suicide precautions. In Paper Clothes. 2. Will remain in room under direct supervision of one-on-one staff at all times provided by CPSO, PRODUCT SAFETY ENGINEER, SANDWICH COUNTER ATTENDANT taping machine operator. 3. May have paper cups, plates, finger foods as well as a cardboard spoon with which to eat meals. 4. Follow [facility] Management of the Admitted Behavioral Health Patient policy. 5. Shower permitted with escort at RN discretion. 6. No personal belongings. 7. Visitors: Limited to Janki rodríguez, at RN discretion. 8. Activities: soft cart items, music tablet, television, and other activities at RN discretion. 9. Bathroom privileges with escort in the ED, available in room without limitation on M/S. 10. Phone: may use [employer] hospital phone at RN discretion. 11. Due to VOLUNTARY status, if patient wishes to leave [facility], staff will contact [facility] Crisis Screener ([phone]) and On-Call Felt Tipping Machine Tender ([phone]) as soon as possible. In the event of elopement, notify [facility] Police ([phone]). Patient is currently voluntarily at [facility] and seeking inpatient admission when a bed becomes available. [facility] Frontline Wheel Mill Operator will continue seeking placement. Please contact the Medical Manager Felt Tipping Machine Tender ([phone]) and [facility] Wheel Mill Operator ([phone]) for any needed changes in the Safety Plan. Safety plan has been provided to interdepartmental care team.
--- NOTE | 2022-03-04 13:19 | PDOC.MHCN ---
Date of service: 03/01/22 Time of Service: 12:19 Mental Health Crisis Note Presenting Issue How did you arrive at the ED and why did you come: P)t brought himself to the ED for assessment and placement for co-occurring treatment. Precipitating Factors Pt is endorsing SI. He denid HI and NSSI. He endorsed a plan to go on the streets and buy drugs to overdose on if it came to that. Disposition BEHAVIOR: Pt was cooperative and engaged but clearly agitated and unable to sit still as evidenced by his legs bouncing and his tossing and turning in the bed. EYE CONTACT: Pt made minimal eye contact looking directly toward the ceiling. MOOD: Pt described his mood as depressed and hopeless. AFFECT: Affect is congruent with mood. APPETITE: Pt reported he has not been eating well. SLEEP(trouble falling/staying asleep: Pt reported frequent nightmares which prevent him from sleeping. Plan Pt will stay at [facility] and be evaluated daily to seek placement. No beds available today however, referrals will be sent out. Signature Clinician's Name/Title: Angeline Calhoun MS, [facility] Emergency Services Clinician, [facility]
[2022-03-04] MEDS: LORazepam 1 MG TAB PO/SL ×2 (13:58→17:50)
[2022-03-04 15:01] VITALS: BP 117/68; PULSE 54; RESP 17; TEMP 36.2; O2SAT 94
--- NOTE | 2022-03-04 18:13 | W.PM.PROGNOT ---
Date of Service Date of service: 03/04/22 Time of Service: 17:13 Assessment and Plan Assessment and plan (1) Depression: Status: Chronic Assessment and plan: Will continue fluoxetine, once medically cleared will have mental health see him (2) Polysubstance abuse: Status: Acute Assessment and plan: This is complicating his mood disorder, has also led to withholding of abusable medications, probably appropriately. He needs dual diagnosis treatment plan. (3) Alcohol withdrawal: Status: Acute Assessment and plan: He no longer is having alcohol withdrawal. He is on lorazepam protocol because he takes methadone and pehnobarbitol is contraindicated. He does not have a history of seizures. continue ciwa overnight, can likely stop in am. continue thiamine met with community living coach today. (4) Bronchospasm: Status: Acute Assessment and plan: He likely has COPD. Albuterol prn for now, should have PFTs as outpatient. (5) Chronic deep vein thrombosis (DVT): Status: Acute Assessment and plan: History of DVT, taking apixiban in the past. Apixaban was started - INR 1.0 (6) Opioid dependence on agonist therapy: Status: Acute Assessment and plan: 45mg methadone started, dose is unclear and should be confimed by HUNTER. (7) Alcohol dependence: Status: Acute Assessment and plan: He should be offered comprehensive treatment including medical and behavioral care once he is through withdrawal. He has recent nutritional labs and was low on B12 and folate and he is getting suppluments of these as well as thiamnie per prototocol. I added CMP and mag, has hepatitis B and C on problem list as well but labs from early February 2022 not consistent with liver fibrosis. (8) Discharge planning issues: Status: Acute Assessment and plan: He is medical inpatient now to treat active EtOH withdrawal. Placement at psychiatric facility once he is through this and cleared. discussed with DR Beyer Subjective Subjective Patient reports: no new complaints, feels better, tolerating liquids well, tolerating a regular diet, voiding w/o difficulty and afebrile; denies shortness of breath Exam Const General: cooperative HENMT Head: normal to inspection Mouth: oral mucosae normal Eyes Sclera: sclerae normal Pupils: PERRL Resp Effort & Inspection: normal respiratory effort Auscultation: clear to auscultation bilaterally Cardio Rate: regular rate Rhythm: regular rhythm GI Other: Nontender abdominal exam Skin General skin exam: no rashes or lesions noted Neuro General: patient alert and patient oriented x3 Extrem General: normal to inspection Objective Last Vital Signs Temp 36.2 C L 03/04/22 15:01 Pulse 54 L 03/04/22 15:01 Resp 17 03/04/22 15:01 BP 117/68 03/04/22 15:01 Pulse Ox 94 03/04/22 15:01 Laboratory Results - last 24 hr 03/04/22 03/04/22 06:30 06:30 WBC 5.97 RBC 4.55 Hgb 12.6 L Hct 41.0 MCV 90 MCH 27.7 MCHC 30.7 L RDW 17.2 H Plt Count 369 MPV 9.1 Immature Gran % 0.0 Neutrophils % 40.9 Lymphocytes % 44.7 Monocytes % 9.2 Eosinophils % 4.7 Basophils % 0.5 Nucleated RBC % 0.0 Absolute Neutrophils 2.44 Absolute Lymphocytes 2.67 Absolute Monocytes 0.55 Absolute Eosinophils 0.28 Absolute Basophils 0.03 Sodium 140 Potassium 3.5 Chloride 106 Carbon Dioxide 27.2 Anion Gap 6.8 BUN 5 L Creatinine 0.8 Estimated GFR/1.73 m2 >= 60.00 Glucose 93 Calcium 9.1 PAWSS Have you Been Recently Intoxicated or Drunk Within the Last 30 days?: Yes Have you Ever Experienced Previous Episodes of Alcohol Withdrawal?: Yes Have you ever Experienced Withdrawal Seizures?: No Have you ever Experienced Delirium Tremens(DT)s?: No Have you ever undergone Alcohol Rehabilitation Treatment (i.e, inpt ot outpatient treatment programs)?: Yes Have you ever Experienced Blackouts?: Yes Have you ever Combined Alcohol with other Downers within the last 90 days?: No Have you ever Combined Alcohol with any other Substance of Abuse during the last 90 days?: Yes Positive Blood Alcohol level on Presentation? [PCS.BAL]: Yes Evidence of Increased Autonomic Activity (i.e. HR>120, tremor, sweating, agitation, nausea)?: No Result: 7
[2022-03-04] MEDS: Cetirizine 10 MG TAB PO (21:22)
[2022-03-04 23:53] VITALS: BP 107/70; PULSE 73; RESP 18; TEMP 36.6; O2SAT 93
[2022-03-05 08:30] VITALS: BP 93/54; PULSE 56; RESP 20; TEMP 35.6; O2SAT 96
[2022-03-05] MEDS: chlordiazePOXIDE 25 MG CAP 50 MG PO ×2 (08:33→11:04)
[2022-03-05] MEDS: Thiamine 100 MG TAB PO (08:33)
[2022-03-05] MEDS: Apixaban 5 MG TAB PO ×2 (08:33→19:45)
[2022-03-05] MEDS: Cyanocobalamin 500 MCG TAB 1000 MCG PO (08:33)
[2022-03-05] MEDS: Multivitamin TAB 1 TAB PO (08:33)
[2022-03-05] MEDS: FLUoxetine 20 MG CAP 80 MG PO (08:33)
[2022-03-05] MEDS: Folic Acid 1 MG TAB PO (08:33)
[2022-03-05] MEDS: ARIPiprazole 5 MG TAB PO (08:34)
[2022-03-05] MEDS: Methadone Liquid 10 MG/ML 45 MG PO (09:18)
--- NOTE | 2022-03-05 10:11 | NUR.NOTE ---
Nursing Note: Patient was medically cleared, moved from room 210 to room 234, CPSO outside of room with patient in site.
[2022-03-05] MEDS: Albuterol HFA 8 GM 60 PUFF INH IH (12:14)
--- NOTE | 2022-03-05 14:19 | W.PM.PROGNOT ---
Date of Service Date of service: 03/05/22 Time of Service: 13:19 Assessment and Plan Assessment and plan (1) Depression: Status: Chronic Assessment and plan: Continue fluoxetine awaiting inpatient psychiatric placement for management (2) Polysubstance abuse: Status: Acute Assessment and plan: Complicating his mood disorder, has also led to withholding of abusable medications, probably appropriately. He needs dual diagnosis treatment plan. (3) Alcohol withdrawal: Status: Acute Assessment and plan: He no longer is having alcohol withdrawal. CIWA discontinued will taper librium continue thiamine met with girls swimming coach yesterday. (4) Bronchospasm: Status: Acute Assessment and plan: He likely has COPD. Albuterol prn for now, should have PFTs as outpatient. (5) Chronic deep vein thrombosis (DVT): Status: Acute Assessment and plan: History of DVT, taking apixiban in the past. Apixaban was started - INR 1.0 (6) Opioid dependence on agonist therapy: Status: Acute Assessment and plan: 45mg methadone started, dose is unclear and should be confimed by HUNTER. (7) Alcohol dependence: Status: Acute Assessment and plan: He should be offered comprehensive treatment including medical and behavioral care. He has recent nutritional labs and was low on B12 and folate and he is getting supplements of these as well as thiamine per prototocol. Added CMP and mag, has hepatitis B and C on problem list as well but labs from early February 2022 not consistent with liver fibrosis. (8) Discharge planning issues: Status: Acute Assessment and plan: He is medically cleared and ready for mental health evaluation Awaiting voluntary placement at psychiatric facility. discussed with DR Beyer Subjective Subjective Patient reports: no new complaints, tolerating liquids well, tolerating a regular diet and afebrile Interval history since last seen: no longer experiencing withdrawal symptoms. no behavioral issues. Exam Const General: cooperative HENMT Head: normal to inspection Mouth: oral mucosae normal Eyes Sclera: sclerae normal Pupils: PERRL Resp Effort & Inspection: normal respiratory effort Auscultation: clear to auscultation bilaterally Cardio Rate: regular rate Rhythm: regular rhythm GI Other: Nontender abdominal exam Skin General skin exam: no rashes or lesions noted Neuro General: patient alert and patient oriented x3 Extrem General: normal to inspection Objective Last Vital Signs Temp 35.6 C L 03/05/22 08:30 Pulse 56 L 03/05/22 08:30 Resp 20 03/05/22 08:30 BP 93/54 L 03/05/22 08:30 Pulse Ox 96 03/05/22 08:30 PAWSS Have you Been Recently Intoxicated or Drunk Within the Last 30 days?: Yes Have you Ever Experienced Previous Episodes of Alcohol Withdrawal?: Yes Have you ever Experienced Withdrawal Seizures?: No Have you ever Experienced Delirium Tremens(DT)s?: No Have you ever undergone Alcohol Rehabilitation Treatment (i.e, inpt ot outpatient treatment programs)?: Yes Have you ever Experienced Blackouts?: Yes Have you ever Combined Alcohol with other Downers within the last 90 days?: No Have you ever Combined Alcohol with any other Substance of Abuse during the last 90 days?: Yes Positive Blood Alcohol level on Presentation? [PCS.BAL]: Yes Evidence of Increased Autonomic Activity (i.e. HR>120, tremor, sweating, agitation, nausea)?: No Result: 7
[2022-03-05 15:22] VITALS: BP 112/69; PULSE 54; RESP 16; TEMP 36.2; O2SAT 94
[2022-03-05] MEDS: chlordiazePOXIDE 25 MG CAP PO ×2 (15:40→19:45)
--- NOTE | 2022-03-05 17:08 | PDOC.MHCN_ITS ---
Date of service: 03/05/22 Time of Service: 12:00 Mental Health Crisis Note Presenting Issue How did you arrive at the ED and why did you come: Client presented to [facility] ED under the influence of polysubstance (heroin, methamphetamines, ETOH) 5.20 with active suicidal ideation seeking placement. He is seen for a follow-up assessment today after being medically cleared. Precipitating Factors Location of service: [facility], via telehealth * General appearance and behavior: Client presented in hospital gown seated on bed, unremarkable general appearance. He appeared withdrawn and was cooperative and appropriate with minimal engagement. * Sensorium and memory: Appeared fully alert and oriented to time, place, person, and situation. No reported memory deficits. * Mood and affect: Client reported feeling depressed and complained of difficulties with sleep. Affect was depressed. He disclosed relapsing on heroin and smoking methamphetamine and stated, I hate meth. that just isn?t me. I wanted to find something that could make me happy and it's not working. * Thought process: Intact, linear, coherent. No delusions or hallucinations. * Thought content: Client reported experiencing fleeting thoughts of suicide via overdose without intention to act at this time. He disclosed relapsing on heroin and smoking methamphetamine and stated, I hate meth. that just isn?t me. I wanted to find something that could make me happy and it's not working. He reported that he resides with his parents and that he isn't allowed there as his 13yo is present. He stated. I don't need him to see me like this. He knows I'm super depressed. * Judgment: Good * Insight: Good * Sleep/appetite: Client complained of oversleeping and minimal appetite. Disposition BEHAVIOR: Cooperative EYE CONTACT: Fair MOOD: Depressed AFFECT: Congruent to stated mood APPETITE: Poor SLEEP(trouble falling/staying asleep: Dysregulated (oversleeping) Plan The client has agreed to remain at [facility] on voluntary status and await recommended in-patient treatment. [facility] will provide daily mental status and disposition assessments to determine continued need for placement. If acuity level decreases or level of care requirements change, a safety plan for discharge back to the community can be considered. [facility] care management have been updated. Referral status: Note / medical clearance will be faxed to: [facility], [facility], [facility], [facility] Signature Clinician's Name/Title: Mio Cabrera [facility] clinician / [facility]
--- NOTE | 2022-03-05 17:44 | CMSP_ITS ---
- If Service Date Differs Date of service: 03/05/22 Time of Service: 17:44 Care Management Safety Plan Status: Voluntary - Reason for Wait Reason for Wait: Inpatient Admission VOLUNTARY FOR INPATIENT PSYCHIATRIC STABILIZATION. Patient is appropriate in all interactions since arriving at [facility]; Pt has demonstrated appropriate coping and communication skills, has articulated his or her needs and concerns and is fully engaged during staff interactions. Safety plan has been established with patient, and care team, to adhere to patient goals, identify restrictions based on behavioral status, address nutrition, and determine allowed personal belongings, tools for hygiene and personal care. Determine level of activity including ambulation, level of supervision, visitors, and determine privileges based on behaviors and level of engagement by pt. SAFETY PLAN: 1. Will remain on suicide precautions. In Paper Clothes. 2. Will remain in room under direct supervision of one-on-one staff at all times provided by CPSO, ORDER SELECTOR, MANAGER ADULT medical records technician. 3. May have paper cups, plates, finger foods as well as a cardboard spoon with which to eat meals. 4. Follow [facility] Management of the Admitted Behavioral Health Patient policy. 5. Shower permitted with escort at RN discretion. 6. No personal belongings. 7. Visitors: Limited to Janki rodríguez, at RN discretion. 8. Activities: soft cart items, music tablet, television, and other activities at RN discretion. 9. Bathroom privileges with escort in the ED, available in room without limitation on M/S. 10. Phone: may use [employer] hospital phone at RN discretion. 11. Due to VOLUNTARY status, if patient wishes to leave [facility], staff will contact [facility] Crisis Screener ([phone]) and On-Call Professor Of Kinesiology ([phone]) as soon as possible. In the event of elopement, notify [place] [employer] ([phone]). Patient is currently voluntarily at [facility] and seeking inpatient admission when a bed becomes available. [facility] Frontline Percussion Instrument Tuner will continue seeking placement. Please contact the Starch Cooker Professor Of Kinesiology ([phone]) and [facility] Percussion Instrument Tuner ([phone]) for any needed changes in the Safety Plan. Safety plan has been provided to interdepartmental care team.
--- NOTE | 2022-03-05 17:45 | CMPROGNOTE_ITS ---
- If Service Date Differs Date of service: 03/05/22 Time of Service: 17:45 Care Management Progress Note S/O: William was lying in bed when CM met with him. He became medically cleared today, and was moved to the transitional area with his CPSO. He appeared withdrawn and did not engage well in conversation with CM today. He stated that he is feeling very depressed, and he is still seeking inpatient psychiatric treatment. He was screened by [facility] today, who agree with this plan, and will send referrals to accepting facilities. CM sent his medical documents to [facility], in order for him to send the referral together. William stated that [facility] is his first choice. No changes to the safety plan at this time. CM will continue to follow. A: William is a 41 year old male admitted to [facility] on 03/04/22 with depression, SI, polysubstance. P: William in voluntary, seeking admission to an inpatient psychiatric facility. Referrals have been sent to all facilities, although his first choice is [facility]. There is no bed availability today. He will be seen by [facility] daily to assess his need for inpatient psychiatric treatment. CM will continue to follow.
[2022-03-05] MEDS: Cetirizine 10 MG TAB PO (21:28)
[2022-03-05 23:46] VITALS: BP 100/59; PULSE 57; RESP 18; TEMP 36.7; O2SAT 94
--- NOTE | 2022-03-06 01:25 | NUR.NOTE ---
Patient became agitated during the shift. State he wanted nicotrol. Patient was informed that nicoderm patch is ordered, he state he did not want that. He would rather have nicotrol. Patient was informed that this nurse would speak to the MD and will follow up. While in the process of speaking the MD the patient informed the CPSO that he will be leaving because being in the hospital is BS. When one of the staff nurse spoke with him he told her that he was allowed to smoke prior admission with a nurse accompanying him outside. The Nursing supervision was informed of patient desire to leave. Patient left department accompanied by and ANTONIO. [facility] and Police department was also informed
--- NOTE | 2022-03-06 12:14 | PDOC.CMPRO ---
- If Service Date Differs Date of service: 03/06/22 Time of Service: 12:14 Care Management Progress Note CM was informed this morning that William left AMA overnight. Per report, police and [facility] were notified. He was voluntary for admission to an inpatient psychiatric facility, and has the right to leave AMA. William arrived at the ED this morning for a last dose letter to provide to HUNTER. ALEA drafted a letter stating that his last dose was yesterday, and provided it to William who was waiting in the lobby. He was calm and appropriate in interaction, and left promptly after he received the letter.
--- NOTE | 2022-03-07 16:02 | DSE_ITS ---
Date of service: 03/06/22 Time of Service: 07:00 DS: Diagnosis Discharge Diagnosis (1) Depression: Status: Chronic (2) Polysubstance abuse: Status: Acute (3) Alcohol withdrawal: Status: Acute (4) Bronchospasm: Status: Acute (5) Chronic deep vein thrombosis (DVT): Status: Acute (6) Opioid dependence on agonist therapy: Status: Acute (7) Alcohol dependence: Status: Acute Discharge Plan Disposition Patient Disposition: AGAINST MEDICAL ADVICE Condition: Serious Discharge Details Reason For Visit: Depression, SI, Polysubstance Admit Date/Time: 03/04/22 06:57 Admit Provider: Madan Palafox Attending Provider: Madan Palafox Primary Care Provider: Todd Corey debora [facility] Hospital Course: Mr Galo is a 41 year old male with PMHx of polysubstance abuse on chronic methadone therapy, alcohol abuse, depression vs bipolar d/o, treated Hep B/C, who was a patient on [facility] hospitalist service from 03/01/22 until 03/06/22, when he left AMA for suicidal ideation in setting of alcohol/polysubstance abuse and withdrawal. The patient was treated with benzodiazepines for alcohol withdrawal. He was noted to have bronchospasm, which was treated with prn albuterol. When his alcohol withdrawal symptoms were well controlled on the librium taper he was evaluated by mental health who deemed him appropriate for a psychiatric admission on voluntary basis. 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 He did not receive any prescriptions. Home Meds and New Rx's Prescriptions: No Action methadone 10 MG/ML concentrate 45 mg PO DAILY fluoxetine 40 mg capsule 80 mg PO DAILY Label Comments: TK 2 CS PO QAM hydroxyzine pamoate 50 mg capsule 50 mg PO Q4H PRN Label Comments: TK 1 C PO Q 4 H PRN loratadine 10 mg tablet 10 mg PO DAILY Label Comments: TK 1 T PO QD albuterol sulfate [Ventolin HFA] 90 mcg/actuation Hfa Aerosol Inhaler 2 puff inhalation Q4H PRN PRNQty: 8.5 0RF cetirizine 10 mg Tablet 10 mg PO HS Qty: 30 0RF cyanocobalamin (vitamin B-12) [Vitamin B-12] 500 mcg Tablet 1,000 mcg PO DAILY Qty: 30 0RF folic acid 1 mg Tablet 1 mg PO QAM Qty: 30 0RF Discharge Instructions Referrals: Todd Corey MD [Primary Care Provider] - Activity:: Activity as Tolerated Equipment/Supplies:: No Equipment Needed Diet:: As Tolerated Discharge Orders Discharge Orders: Discharge Order (Routine); Ordered 03/06/22 Ordered By: Araceli Beyer Discharge Data Discharge Date/Time-TO BE ENTERED AT DEPARTURE: 03/06/22 00:29 DS: Summary Time Spent with Patient providing and/or coordinating discharge services: Less than 30 minutes Status at Discharge Functional status at discharge: independent ambulation Overall status at discharge: patient is progressing back to baseline Mental Status: mental status grossly normal Speech and Movement: speech and movement normal Mood: congruent mood Affect: normal affect Exam Psych Mental Status: mental status grossly normal Speech and Movement: speech and movement normal Mood: congruent mood Affect: normal affect DS: Data Vitals/I&O Vitals and I&O: Vital Signs Temperature 36.7 C 03/05/22 23:46 Temperature Source Tympanic 03/05/22 23:46 Pulse 57 L 03/05/22 23:46 Pulse Rhythm Regular 03/05/22 23:00 Respiratory Rate 18 03/05/22 23:46 Respiratory Effort 03/05/22 23:00 Respiratory Depth Normal 03/05/22 23:00 Respiratory Pattern Normal 03/05/22 23:00 Blood Pressure 100/59 L 03/05/22 23:46 Blood Pressure Position Sitting 03/01/22 13:23 Pulse Oximetry 94 03/05/22 23:46 Oxygen Delivery Method Room Air 03/05/22 23:46 Oxygen Flow Rate 0 03/05/22 23:46 Pain Level 0 03/05/22 23:46 Comment 03/05/22 08:30 PFSH All Active Problems (Updated 03/06/22 @ 18:39 by Christian Vanessa MD) Depression (Chronic) Suicidal ideation (Acute) Opioid dependence on agonist therapy (Acute) Alcohol dependence (Acute) Chronic deep vein thrombosis (DVT) (Acute) Discharge planning issues (Acute) Bronchospasm (Acute) Alcohol withdrawal (Acute) Depression (Chronic) Polysubstance abuse (Acute) Myalgia (Acute) Cocaine withdrawal (Acute) Suicide ideation (Acute) Polysubstance abuse (Chronic) Medical History (Updated 03/06/22 @ 18:39 by Christian Vanessa MD) Hepatitis B Hepatitis C History of osteomyelitis Family History Other Alcohol use disorder Depression Social History (Updated 03/02/22 @ 08:47 by Madan Palafox) Smoking/Tobacco Use Status: Former Tobacco Use Smoking risk assessment performed?: Yes Alcohol Intake: current Alcohol Intake frequency: 3 or more drinks per day Alcohol type: beer and hard liquor Drug use: Daily Substance use type: marijuana Details: drinks a case and a half of beer a day and a fifth of vodka. Do you feel safe at home: Yes Do you feel safe in your relationship?: Yes Additional Social history: Currently homeless. Has 13 year old son in [place] that does not live with him.
== END 2022-03-06 00:29 | disposition left against medical advice (07) | DRG 881 ==
LOC: ER 20:46 → MS 03-02 00:10
PROVIDERS: Emergency Medicine; Nurse Practitioner Acute Care; Nurse Practitioner Family; Admitting Provider Family Medicine; Emergency Provider Student in an Organized Health Care Education/Training Program; PCP Family Medicine; Visit Provider Family Medicine
DX: F32.9 Major depressive disorder, single episode, unspecified (principal); R45.851 Suicidal ideations; I82.592 Chronic embolism and thrombosis of other specified deep vein of left lower extremity; F11.20 Opioid dependence, uncomplicated; F10.239 Alcohol dependence with withdrawal, unspecified; F19.10 Other psychoactive substance abuse, uncomplicated; J98.01 Acute bronchospasm; J44.9 Chronic obstructive pulmonary disease, unspecified; Z79.01 Long term (current) use of anticoagulants; F15.10 Other stimulant abuse, uncomplicated; M79.7 Fibromyalgia
CPT/HCPCS: 36415; 80048; 80053; 80307; 87637; 99285; 71046; 83735; 85025; 85610; 99232; 99233; G0378

== ENCOUNTER 2022-03-06 14:59 | Observation (INO) | payer MEDICAID, SELFPAY ==
[2022-03-06 15:06] VITALS: BP 102/67; PULSE 82; RESP 16; TEMP 37.1; O2SAT 98
--- NOTE | 2022-03-06 15:26 | ED.GENADUL_ITS ---
Discharge Plan Disposition Patient Disposition: STILL A PATIENT Condition: Stable Discharge Details Clinical Impression: Depression, Suicidal ideation Primary Care Provider: Todd Corey ED Provider: Christian Vanessa Home Meds and New Rx's Prescriptions: No Action methadone 10 MG/ML concentrate 45 mg PO DAILY fluoxetine 40 mg capsule 80 mg PO DAILY Label Comments: TK 2 CS PO QAM hydroxyzine pamoate 50 mg capsule 50 mg PO Q4H PRN Label Comments: TK 1 C PO Q 4 H PRN loratadine 10 mg tablet 10 mg PO DAILY Label Comments: TK 1 T PO QD albuterol sulfate [Ventolin HFA] 90 mcg/actuation Hfa Aerosol Inhaler 2 puff inhalation Q4H PRN PRNQty: 8.5 0RF cetirizine 10 mg Tablet 10 mg PO HS Qty: 30 0RF cyanocobalamin (vitamin B-12) [Vitamin B-12] 500 mcg Tablet 1,000 mcg PO DAILY Qty: 30 0RF folic acid 1 mg Tablet 1 mg PO QAM Qty: 30 0RF Medical Decision Making 41-year-old male history of depression, abuse opiate abuse, DVTs on anticoagulation, presents with worsening depression and suicidal ideation, also endorses drinking shortly before arrival to the emergency department, appears clinically intoxicated, no external signs of trauma, is alert oriented maintaining airway interactive and cooperative, moving all extremities no signs of trauma, hemodynamically stable, no tongue fasciculations or tremor to suggest alcohol withdrawal. Patient endorses worsening depression and suicidal thoughts, is willing to stay for psychiatric evaluation will call for [facility] human services evaluation. At this time labs and imaging are unwarranted as patient was medically cleared within the last 24 hours and appears clinically stable. Low suspicion for traumatic process metabolic process infectious process or toxicologic process besides alcohol intoxication. Will reassess when more sober. 18: 38 patient continues to endorse suicidal thoughts/depression. Is clinically sober at this point. Will initiate psychiatric screening. 22: 42 patient resting comfortably no acute distress. Has been evaluated by [facility] human services, patient will stay for voluntary placement. [facility] to send referrals. Will reassess in the morning. HPI General Date/Time Provider Initiated Documentation: 03/06/22 15:04 . HPI Narrative: 41-year-old male history of opioid dependence alcohol abuse DVT, depression presents endorsing worsening depression and suicidal thoughts. Does not have a definitive plan does not have access to weapons. Endorse that he wants to get healthy so that he can see his son. Also endorses that he drank alcohol before arrival. Related Data Home Medications Medication Instructions Recorded Confirmed methadone 10 mg/mL oral concentrate 45 mg PO DAILY 03/31/14 03/06/22 fluoxetine 40 mg capsule 80 mg PO DAILY 10/09/20 03/06/22 hydroxyzine pamoate 50 mg capsule 50 mg PO Q4H PRN 10/09/20 03/06/22 loratadine 10 mg tablet 10 mg PO DAILY 10/09/20 03/06/22 albuterol sulfate 90 mcg/actuation 2 puff inhalation Q4H PRN PRN #8.5 02/20/22 03/06/22 aerosol inhaler (Ventolin HFA) grams cetirizine 10 mg tablet 10 mg PO HS #30 tabs 02/20/22 03/06/22 cyanocobalamin (vitamin B-12) 500 1,000 mcg PO DAILY #30 tabs 02/20/22 03/06/22 mcg tablet (Vitamin B-12) folic acid 1 mg tablet 1 mg PO QAM #30 tabs 02/20/22 03/06/22 Previous Rx's Medication Instructions Recorded albuterol sulfate 90 mcg/actuation 2 puff inhalation Q4H PRN PRN #8.5 02/20/22 aerosol inhaler (Ventolin HFA) grams cetirizine 10 mg tablet 10 mg PO HS #30 tabs 02/20/22 cyanocobalamin (vitamin B-12) 500 1,000 mcg PO DAILY #30 tabs 02/20/22 mcg tablet (Vitamin B-12) folic acid 1 mg tablet 1 mg PO QAM #30 tabs 02/20/22 Allergies Allergy/AdvReac Type Severity Reaction Status Date / Time No Known Allergies Allergy Unverified 03/06/22 15:18 General Stated Complaint: ETOHWithdr RAVEN: 2 Review of Systems Narrative: Review of Systems Constitutional: negative Eyes: negative ENT: negative Cardiovascular: negative Respiratory: negative Gastrointestinal: negative : negative Musculoskeletal: negative Skin: negative Neurologic: negative Psych: Depression, suicidal ideation PFSH All Active Problems (Updated 03/06/22 @ 18:39 by Christian Vanessa MD) Depression (Chronic) Suicidal ideation (Acute) Opioid dependence on agonist therapy (Acute) Alcohol dependence (Acute) Chronic deep vein thrombosis (DVT) (Acute) Discharge planning issues (Acute) Bronchospasm (Acute) Alcohol withdrawal (Acute) Depression (Chronic) Polysubstance abuse (Acute) Myalgia (Acute) Cocaine withdrawal (Acute) Suicide ideation (Acute) Polysubstance abuse (Chronic) Medical History (Updated 03/06/22 @ 18:39 by Christian Vanessa MD) Hepatitis B Hepatitis C History of osteomyelitis Family History Other Alcohol use disorder Depression Social History (Updated 03/02/22 @ 08:47 by Madan Palafox) Smoking/Tobacco Use Status: Former Tobacco Use Smoking risk assessment performed?: Yes Alcohol Intake: current Alcohol Intake frequency: 3 or more drinks per day Alcohol type: beer and hard liquor Drug use: Daily Substance use type: marijuana Details: drinks a case and a half of beer a day and a fifth of vodka. Do you feel safe at home: Yes Do you feel safe in your relationship?: Yes Additional Social history: Currently homeless. Has 13 year old son in [place] that does not live with him. Exam Narrative Exam Narrative: Physical Examination General: alert, awake, cooperative, resting comfortably, no acute distress; appears mildly intoxicated HEENT: normocephalic, atraumatic; PERRL, EOM intact, conjunctiva normal; no nasal discharge; moist mucous membranes, oral and pharyngeal mucosa normal, tolerating secretions; no tongue fasciculation Neck: supple, trachea midline; full ROM Chest: normal to inspection Respiratory: normal respiratory effort, speaking in full sentences, clear to auscultation, no wheezing, rales or rhonchi Cardiac: regular rate, regular rhythm, S1S2 intact, no murmurs rubs or gallops GI: abdomen soft, non-tender, non-distended; no palpable mass or hepatosplenomegaly Skin: no lesions, rashes or trauma appreciated Neuro: AAOx3, normal speech, moving all extremities; no tremor Psych: Depression, suicidal ideation Course Vital Signs Vital signs: Vital Signs Temperature 37.1 C 03/06/22 15:06 Pulse 82 03/06/22 15:06 Respiratory Rate 16 03/06/22 15:06 Blood Pressure 102/67 03/06/22 15:06 Pulse Oximetry 98 03/06/22 15:06 Temperature 37.1 C 03/06/22 15:06 Temperature Source Oral 03/06/22 15:06 Pulse 82 03/06/22 15:06 Respiratory Rate 16 03/06/22 15:06 Blood Pressure 102/67 03/06/22 15:06 Blood Pressure Position Sitting 03/06/22 15:06 Pulse Oximetry 98 03/06/22 15:06 Oxygen Delivery Method Room Air 03/06/22 15:06 Oxygen Flow Rate 0 03/06/22 15:06 Pain Level 10 03/06/22 15:06
[2022-03-06 22:30] VITALS: BP 128/92; PULSE 64; TEMP 36.6; O2SAT 96
[2022-03-06] MEDS: Acetaminophen 325 MG TAB 650 MG PO (22:47)
--- NOTE | 2022-03-06 23:07 | PDOC.MHCN_ITS ---
Date of service: 03/06/22 Time of Service: 22:08 Mental Health Crisis Note Presenting Issue How did you arrive at the ED and why did you come: Client presented to [facility] ED due to alcohol intoxication and depression stating that he needs help. Precipitating Factors Client denies SI/HI at this time stating that the SI seems to come and go. Disposition BEHAVIOR: Client is laying down in hospital bed dressed in street clothes answering all questions that are asked of him. EYE CONTACT: Good. MOOD: Depressed AFFECT: Flat APPETITE: poor SLEEP(trouble falling/staying asleep: poor Plan Client will remain at [facility] awaiting voluntary treatment. This hand sign writer and client had conversation about if he leaves this time we will no longer seek treatment due to his lack of follow through. Referrals will be faxed to [facility], [facility], , and [facility]. Client will be seen daily by [facility] until placement is secured or he can be safety planned back to the community. Signature Clinician's Name/Title: Jessica Chapin [facility] Emergency Clinician.
[2022-03-06] MEDS: Omeprazole 20 MG CAPCR PO (23:35)
--- NOTE | 2022-03-06 23:51 | W.EDPROG ---
Date of service: 03/07/22 Time of Service: 03:01 Medical Decision Making pt voluntary for depression and si, calm and cooperative here. Will continue to monitor until placement found notified that we had capacity to admit the patient upstairs, he reiterates he wants to stay for placement at psych facility. Spoke with Dr. Bailey who accepts for admission Sign Out Sign Out Data: Sign Out Comment: voluntary, assessed by [facility] for depression/SI, referrals for placement pending, reassessment scheduled for AM Last updated by Christian Vanessa MD at 03/06/22 22:44 Sign Out Comment: voluntary for depression/si, pending placement, no issues overnight Last updated by Regino Del Toro MD at 03/07/22 00:22 Discharge Plan Disposition Patient Disposition: [facility] INPATIENT Condition: Stable Discharge Details Clinical Impression: Depression, Suicidal ideation Primary Care Provider: Todd Corey ED Provider: Regino Del Toro Home Meds and New Rx's Prescriptions: No Action methadone 10 MG/ML concentrate 45 mg PO DAILY fluoxetine 40 mg capsule 80 mg PO DAILY Label Comments: TK 2 CS PO QAM hydroxyzine pamoate 50 mg capsule 50 mg PO Q4H PRN Label Comments: TK 1 C PO Q 4 H PRN loratadine 10 mg tablet 10 mg PO DAILY Label Comments: TK 1 T PO QD albuterol sulfate [Ventolin HFA] 90 mcg/actuation Hfa Aerosol Inhaler 2 puff inhalation Q4H PRN PRNQty: 8.5 0RF cetirizine 10 mg Tablet 10 mg PO HS Qty: 30 0RF cyanocobalamin (vitamin B-12) [Vitamin B-12] 500 mcg Tablet 1,000 mcg PO DAILY Qty: 30 0RF folic acid 1 mg Tablet 1 mg PO QAM Qty: 30 0RF
--- NOTE | 2022-03-07 | DI.RAD_ITS ---
Exam(s) XR PORTABLE CHEST AP EXAM: XR PORTABLE CHEST AP CLINICAL HISTORY: productive cough TECHNIQUE: 2D digital imaging was performed of the chest. One image was obtained. An AP view was ob tained. COMPARISON: CR XR PORTABLE CHEST AP from 06/29/2021 CR,XR XR CHEST 2V PA LATERAL from 03/03/2022 FINDINGS: MEDIASTINUM: Normal. HEART: Normal. PULMONARY VASCULATURE: Normal. LUNGS: The pulmonary infiltrates are unchanged. PLEURAL SPACE: No pleural effusion or pneumothorax. BONE:Within normal limits for the patient's age. OTHER FINDINGS:Normal. IMPRESSION: Stable appearance of the lungs. DATA REPOSITORY: RADIATION DOSE DELIVERED:
[2022-03-07 00:41] LABS: Source Nasal/Nares
[2022-03-07 01:31] LABS: COVID-19 PCR Negative (Negative)
[2022-03-07 04:57] VITALS: BP 111/66; PULSE 54; RESP 16; TEMP 36.9; O2SAT 95
[2022-03-07 05:36] LABS: *AMPHETAMINES SCREEN URINE Positive (Negative); *BARBITURATES SCREEN URINE Negative (Negative); *BENZODIAZEPINES SCREEN URINE Positive (Negative); Cannabinoids THC Positive (Negative); Cocaine Screen,Urine Positive (Negative); METHADONE URINE SCREEN Positive (Negative); OPIATES URINE SCREEN Negative (Negative)
[2022-03-07 05:38] LABS: Tricyclic Antidepressants Negative (Negative)
--- NOTE | 2022-03-07 07:34 | W.PM.HP.N ---
Assessment and Plan Assessment and plan (1) Depression: Status: Chronic Assessment and plan: Will await mental health reevaluation for attempt to get him transferred to a hospital to treat his depression. (2) Suicidal ideation: Status: Acute Assessment and plan: He is looking for voluntary admission to the psychiatric unit. (3) Alcohol dependence: Status: Acute Assessment and plan: We will continue him on alcohol withdrawal protocol and start him on Librium 25 mg 3 times a day. (4) Chronic deep vein thrombosis (DVT): Status: Acute Assessment and plan: He has no signs or symptoms of DVT at this time. He is not on chronic anticoagulation. We will give him subcutaneous enoxaparin while he is here. History of Present Illness History of Present Illness Chief Complaint: depression, alcoholism Narrative: This 41-year-old male is here because of depression and suicidal ideation and alcoholism. He has a long history of substance abuse including heroin, methamphetamines, marijuana and alcohol use. He was recently in the hospital here for treatment of alcoholism and depression. He was awaiting bed placement for treatment of his conditions. He got upset about midnight yesterday morning with nursing staff and had a panic attack. He said he saw a doctor who was not going to prescribe what he thought he needed and left AGAINST MEDICAL ADVICE. Yesterday morning he went to friend's house and drank some more but realized he needed to come back and get into treatment. He would like to go to [facility]. Has been there in the past. He is also upset as his physician and [facility] Dr. Corey who would not prescribe gabapentin which she had been on for 10 years for his chronic pain condition. He does not have a suicidal plan but does have suicidal ideation. He would like to get better because he is afraid of losing his 13-year-old son. He was living with his uncle along with his son but was asked to leave because of his alcohol use. He has been drinking up to 24 beers per day. He has had his initial coronavirus vaccine but has not had any boosters. Review of Systems Constitutional Constitutional: Denies chills, Reports difficulty sleeping, Denies fever(s) and Reports lethargy Cardiovascular Cardiovascular: Denies chest pain, Denies rapid heart rate, Denies irregular heart rhythm, Denies radiating jaw, neck or arm pain and Denies dyspnea Respiratory Respiratory: Denies cough and Denies dyspnea Gastrointestinal Gastrointestinal: Denies melena, Denies nausea and Denies vomiting Genitourinary Genitourinary: Denies difficulty urinating and Denies dysuria Psychiatric Psychiatric: Denies visual hallucinations, Denies homicidal ideation and Reports suicidal ideation [facility] All Active Problems (Updated 03/06/22 @ 18:39 by Christian Vanessa MD) Depression (Chronic) Suicidal ideation (Acute) Opioid dependence on agonist therapy (Acute) Alcohol dependence (Acute) Chronic deep vein thrombosis (DVT) (Acute) Discharge planning issues (Acute) Bronchospasm (Acute) Alcohol withdrawal (Acute) Depression (Chronic) Polysubstance abuse (Acute) Myalgia (Acute) Cocaine withdrawal (Acute) Suicide ideation (Acute) Polysubstance abuse (Chronic) Medical History (Updated 03/06/22 @ 18:39 by Christian Vanessa MD) Hepatitis B Hepatitis C History of osteomyelitis Family History Other Alcohol use disorder Depression Social History (Updated 03/02/22 @ 08:47 by Madan Palafox) Smoking/Tobacco Use Status: Former Tobacco Use Smoking risk assessment performed?: Yes Alcohol Intake: current Alcohol Intake frequency: 3 or more drinks per day Alcohol type: beer and hard liquor Drug use: Daily Substance use type: marijuana Details: drinks a case and a half of beer a day and a fifth of vodka. Do you feel safe at home: Yes Do you feel safe in your relationship?: Yes Additional Social history: Currently homeless. Has 13 year old son in [place] that does not live with him. Meds Allergies and Home Medications Allergies Allergy/AdvReac Type Severity Reaction Status Date / Time No Known Allergies Allergy Unverified 03/06/22 15:18 Home Medications Medication Instructions Recorded Confirmed Type methadone 10 mg/mL oral concentrate 45 mg PO DAILY 03/31/14 03/06/22 History fluoxetine 40 mg capsule 80 mg PO DAILY 10/09/20 03/06/22 History hydroxyzine pamoate 50 mg capsule 50 mg PO Q4H PRN 10/09/20 03/06/22 History loratadine 10 mg tablet 10 mg PO DAILY 10/09/20 03/06/22 History albuterol sulfate 90 mcg/actuation 2 puff inhalation Q4H PRN PRN #8.5 02/20/22 03/06/22 Rx aerosol inhaler (Ventolin HFA) grams cetirizine 10 mg tablet 10 mg PO HS #30 tabs 02/20/22 03/06/22 Rx cyanocobalamin (vitamin B-12) 500 1,000 mcg PO DAILY #30 tabs 02/20/22 03/06/22 Rx mcg tablet (Vitamin B-12) folic acid 1 mg tablet 1 mg PO QAM #30 tabs 02/20/22 03/06/22 Rx Exam Const General: cooperative, not healthy appearing, comfortable, no acute distress, not disheveled, not ill appearing and does not appear intoxicated Nutritional Appearance: average body habitus Orientation: alert, awake and oriented x3 Eyes General: appearance normal, both eyes and all related structures Neck Neck: normal visual inspection, no lymphadenopathy and no meningeal signs Thyroid: thyroid normal Resp Effort & Inspection: normal respiratory effort Auscultation: clear to auscultation bilaterally, no rales and no rhonchi Cardio Rate: regular rate Rhythm: regular rhythm Heart Sounds: S1 normal, S2 normal, no gallops and no murmurs GI Inspection: normal to inspection Palpation: soft, no hepatosplenomegaly, not firm and nontender Neuro General: patient alert, patient awake and patient oriented x3 Cranial Nerves: CN's II-XI intact bilaterally Extrem General: normal to inspection, no calf tenderness bilaterally and no edema Results Labs Result diagrams: 03/06/22 23:37 03/06/22 23:37 Labs: Laboratory Results - last 24 hr 03/06/22 03/06/22 03/06/22 23:37 23:37 23:37 WBC RBC Hgb Hct MCV MCH MCHC RDW Plt Count MPV Immature Gran % Neutrophils % Band Neutrophils % Lymphocytes % Atypical Lymphs % Monocytes % Eosinophils % Basophils % Metamyelocytes % Myelocytes % Promyelocytes % Other Cells % Nucleated RBC % Absolute Neutrophils Absolute Lymphocytes Absolute Monocytes Absolute Eosinophils Absolute Basophils RBC Morphology Polychromasia Hypochromasia Poikilocytosis Basophilic Stippling Anisocytosis Microcytosis Macrocytosis Spherocytes Tear Drop Cells Ovalocytes Stomatocytes Portillo[place] Bodies [place] Cells/Echinocytes Acanthocytes (Spur) Schistocytes Sodium Cancelled Potassium Cancelled Chloride Cancelled Carbon Dioxide Cancelled Anion Gap Cancelled BUN Cancelled Creatinine Cancelled Estimated GFR/1.73 m2 Cancelled Glucose Cancelled Calcium Cancelled Total Bilirubin Cancelled AST Cancelled ALT Cancelled Alkaline Phosphatase Cancelled Total Protein Cancelled Albumin Cancelled TSH Cancelled Salicylates Cancelled Urine Opiates Screen Urine Methadone Screen Acetaminophen Cancelled Ur Barbiturates Screen Ur Tricyclics Screen Ur Amphetamines Screen U Benzodiazepines Scrn Urine Cocaine Screen Ur THC Screen Ethyl Alcohol Cancelled COVID-19 Source Nasal/Nares SARS-CoV-2 (PCR) Negative 03/06/22 03/07/22 23:37 04:50 WBC Cancelled RBC Cancelled Hgb Cancelled Hct Cancelled MCV Cancelled MCH Cancelled MCHC Cancelled RDW Cancelled Plt Count Cancelled MPV Cancelled Immature Gran % Cancelled Neutrophils % Cancelled Band Neutrophils % Cancelled Lymphocytes % Cancelled Atypical Lymphs % Cancelled Monocytes % Cancelled Eosinophils % Cancelled Basophils % Cancelled Metamyelocytes % Cancelled Myelocytes % Cancelled Promyelocytes % Cancelled Other Cells % Cancelled Nucleated RBC % Cancelled Absolute Neutrophils Cancelled Absolute Lymphocytes Cancelled Absolute Monocytes Cancelled Absolute Eosinophils Cancelled Absolute Basophils Cancelled RBC Morphology Cancelled Polychromasia Cancelled Hypochromasia Cancelled Poikilocytosis Cancelled Basophilic Stippling Cancelled Anisocytosis Cancelled Microcytosis Cancelled Macrocytosis Cancelled Spherocytes Cancelled Tear Drop Cells Cancelled Ovalocytes Cancelled Stomatocytes Cancelled Portillo[place] Bodies Cancelled [place] Cells/Echinocytes Cancelled Acanthocytes (Spur) Cancelled Schistocytes Cancelled Sodium Potassium Chloride Carbon Dioxide Anion Gap BUN Creatinine Estimated GFR/1.73 m2 Glucose Calcium Total Bilirubin AST ALT Alkaline Phosphatase Total Protein Albumin TSH Salicylates Urine Opiates Screen Negative Urine Methadone Screen Positive A Acetaminophen Ur Barbiturates Screen Negative Ur Tricyclics Screen Negative Ur Amphetamines Screen Positive A U Benzodiazepines Scrn Positive A Urine Cocaine Screen Positive A Ur THC Screen Positive A Ethyl Alcohol COVID-19 Source SARS-CoV-2 (PCR) Last Vital Signs Temp 36.9 C 03/07/22 04:57 Pulse 54 L 03/07/22 04:57 Resp 16 03/07/22 04:57 BP 111/66 03/07/22 04:57 Pulse Ox 95 03/07/22 04:57 PAWSS Have you Been Recently Intoxicated or Drunk Within the Last 30 days?: Yes Have you Ever Experienced Previous Episodes of Alcohol Withdrawal?: Yes Have you ever Experienced Withdrawal Seizures?: No Have you ever Experienced Delirium Tremens(DT)s?: No Have you ever Experienced Blackouts?: Yes Have you ever Combined Alcohol with other Downers within the last 90 days?: Yes Have you ever Combined Alcohol with any other Substance of Abuse during the last 90 days?: Yes Result: 5
[2022-03-07 07:53] VITALS: BP 111/62; PULSE 48; RESP 12; TEMP 36; O2SAT 94
[2022-03-07] MEDS: FLUoxetine 20 MG CAP 80 MG PO (08:29)
[2022-03-07] MEDS: Folic Acid 1 MG TAB PO (08:30)
[2022-03-07] MEDS: Methadone Liquid 10 MG/ML 45 MG PO (08:30)
[2022-03-07] MEDS: Loratidine 10 MG TAB PO (08:30)
[2022-03-07] MEDS: Cyanocobalamin 500 MCG TAB 1000 MCG PO (08:30)
[2022-03-07] MEDS: chlordiazePOXIDE 25 MG CAP PO ×3 (08:30→20:42)
[2022-03-07] MEDS: Enoxaparin 40 MG/0.4 ML SYR SC (08:48)
[2022-03-07 09:12] LABS: Platelet Count 316 10^3/uL (130-400)
--- NOTE | 2022-03-07 11:44 | INITIAL_ITS ---
- If Service Date Differs Date of service: 03/07/22 Time of Service: 11:44 Care Management Initial Assess REASON FOR HOSPITALIZATION:: Depression PAST MEDICAL HISTORY/PAST SURGICAL HISTORY:: All Active Problems (Updated 03/06/22 @ 18:39 by Christian Vanessa MD). Depression (Chronic). Suicidal ideation (Acute). Opioid dependence on agonist therapy (Acute). Alcohol dependence (Acute). Chronic deep vein thrombosis (DVT) (Acute). Discharge planning issues (Acute). Bronchospasm (Acute). Alcohol withdrawal (Acute). Depression (Chronic). Polysubstance abuse (Acute). Myalgia (Acute). Cocaine withdrawal (Acute). Suicide ideation (Acute). Polysubstance abuse (Chronic). Medical History (Updated 03/06/22 @ 18:39 by Christian Vanessa MD). Hepatitis B. Hepatitis C. History of osteomyelitis PREVIOUS FUNCTIONAL STATUS/SOCIAL/FAMILY SUPPORTS:: William lives in a single family home in [place] with his aunt and uncle and his 13 year old son Stef. He does not work as he is disabled but his disability application was denied. William is independent at baseline and does not currentrly receive any services. CURRENT FUNCTIONAL STATUS:: William was lying in bed when CM met with him. He was very restless and his legs were moving constantly. William denied SI, stating that at times he wishes he were not alive but that he would NEVER hurt himself because of what it would do to his son. He repeatedly stated I have to stay here this time, I can't do what I did (go AMA) again. He has been told by [facility] that if he signs out AMA again, they will no longer seek treatment for him as he does not follow through. ADVANCE DIRECTIVES:: none Has patient been provided with info about the portal/API?: Yes Did the patient sign up for the portal?: No CODE STATUS:: Full Code INSURANCE COVERAGE / FINANCIAL ISSUES:: Medicaid CURRENT HOME/COMMUNITY SERVICES/EQUIPMENT:: none PRIMARY CARE PHYSICIAN:: Todd Corey POTENTIAL DISCHARGE NEEDS:: seeking voluntary placement PATIENT/FAMILY EDUCATION NEEDS:: Review of discharge instructions, follow up plan, limitations, activity and discuss Ask Me Three TRANSPORTATION:: to be determined by disposition PLAN:: William is waiting for voluntary placement in a psychiatric facility once he is medically cleared. His transportation will be determined by disposition. CM will continue to follow and support discharge planning concerns.
--- NOTE | 2022-03-07 15:55 | W.PM.PROGNOT ---
Date of Service Date of service: 03/07/22 Time of Service: 14:55 Subjective Subjective Interval history since last seen: Patient was seen in brief follow up. He states he used intravenous heroin while out of the hospital (left AMA on 03/06/22). He is s/p treatment of hepatitis C. He is not sharing needles with anyone. His only complaint is chest pain from coughing. He has a productive cough. He has had it for a week. He is vaccinated against COVID-19. He tested negative for COVID-19 on presentation here now. He is slightly rhonchorous on exam. Will obtain CXR, bloodwork. As sputum is described as purulent, will give empiric augmentin, obtain sputum culture. Provide IS, acapella, mucinex. Objective Last Vital Signs Temp 36 C L 03/07/22 07:53 Pulse 48 L 03/07/22 07:53 Resp 12 03/07/22 07:53 BP 111/62 03/07/22 07:53 Pulse Ox 94 03/07/22 07:53 Laboratory Results - last 24 hr 03/06/22 03/06/22 03/06/22 23:37 23:37 23:37 WBC RBC Hgb Hct MCV MCH MCHC RDW Plt Count MPV Immature Gran % Neutrophils % Band Neutrophils % Lymphocytes % Atypical Lymphs % Monocytes % Eosinophils % Basophils % Metamyelocytes % Myelocytes % Promyelocytes % Other Cells % Nucleated RBC % Absolute Neutrophils Absolute Lymphocytes Absolute Monocytes Absolute Eosinophils Absolute Basophils RBC Morphology Polychromasia Hypochromasia Poikilocytosis Basophilic Stippling Anisocytosis Microcytosis Macrocytosis Spherocytes Tear Drop Cells Ovalocytes Stomatocytes [place]illo[place] Bodies [place] Cells/Echinocytes Acanthocytes (Spur) Schistocytes Sodium Cancelled Potassium Cancelled Chloride Cancelled Carbon Dioxide Cancelled Anion Gap Cancelled BUN Cancelled Creatinine Cancelled Estimated GFR/1.73 m2 Cancelled Glucose Cancelled Calcium Cancelled Total Bilirubin Cancelled AST Cancelled ALT Cancelled Alkaline Phosphatase Cancelled Total Protein Cancelled Albumin Cancelled TSH Cancelled Salicylates Cancelled Urine Opiates Screen Urine Methadone Screen Acetaminophen Cancelled Ur Barbiturates Screen Ur Tricyclics Screen Ur Amphetamines Screen U Benzodiazepines Scrn Urine Cocaine Screen Ur THC Screen Ethyl Alcohol Cancelled COVID-19 Source Nasal/Nares SARS-CoV-2 (PCR) Negative 03/06/22 03/07/22 03/07/22 23:37 04:50 09:10 WBC Cancelled RBC Cancelled Hgb Cancelled Hct Cancelled MCV Cancelled MCH Cancelled MCHC Cancelled RDW Cancelled Plt Count Cancelled 316 MPV Cancelled Immature Gran % Cancelled Neutrophils % Cancelled Band Neutrophils % Cancelled Lymphocytes % Cancelled Atypical Lymphs % Cancelled Monocytes % Cancelled Eosinophils % Cancelled Basophils % Cancelled Metamyelocytes % Cancelled Myelocytes % Cancelled Promyelocytes % Cancelled Other Cells % Cancelled Nucleated RBC % Cancelled Absolute Neutrophils Cancelled Absolute Lymphocytes Cancelled Absolute Monocytes Cancelled Absolute Eosinophils Cancelled Absolute Basophils Cancelled RBC Morphology Cancelled Polychromasia Cancelled Hypochromasia Cancelled Poikilocytosis Cancelled Basophilic Stippling Cancelled Anisocytosis Cancelled Microcytosis Cancelled Macrocytosis Cancelled Spherocytes Cancelled Tear Drop Cells Cancelled Ovalocytes Cancelled Stomatocytes Cancelled [place]illo[place] Bodies Cancelled [place] Cells/Echinocytes Cancelled Acanthocytes (Spur) Cancelled Schistocytes Cancelled Sodium Potassium Chloride Carbon Dioxide Anion Gap BUN Creatinine Estimated GFR/1.73 m2 Glucose Calcium Total Bilirubin AST ALT Alkaline Phosphatase Total Protein Albumin TSH Salicylates Urine Opiates Screen Negative Urine Methadone Screen Positive A Acetaminophen Ur Barbiturates Screen Negative Ur Tricyclics Screen Negative Ur Amphetamines Screen Positive A U Benzodiazepines Scrn Positive A Urine Cocaine Screen Positive A Ur THC Screen Positive A Ethyl Alcohol COVID-19 Source SARS-CoV-2 (PCR) PAWSS Have you Been Recently Intoxicated or Drunk Within the Last 30 days?: Yes Have you Ever Experienced Previous Episodes of Alcohol Withdrawal?: Yes Have you ever Experienced Withdrawal Seizures?: No Have you ever Experienced Delirium Tremens(DT)s?: No Have you ever Experienced Blackouts?: Yes Have you ever Combined Alcohol with other Downers within the last 90 days?: Yes Have you ever Combined Alcohol with any other Substance of Abuse during the last 90 days?: Yes Result: 5
[2022-03-07 16:34] LABS: Abs Immature Grans 0.01 10^3/uL (0.0-0.06); Absolute Basophil Count 0.02 10^3/uL (0.0-0.2); Absolute Eosinophil Count 0.25 10^3/uL (0.0-0.7); Absolute Lymphocyte Count 2.01 10^3/uL (1.2-3.4); Absolute Monocyte Count 0.51 10^3/uL (0.1-0.8); Absolute Neutrophil Count 1.17 10^3/uL (1.2-6.7); Basophils % 0.5; Eosinophils % 6.3; HCT 37.8 % (40.0-50.0); Immature Grans % 0.3; Lymphocytes % 50.6; MCH 28.4 pg (27.0-33.0); MCHC 31.7 % (32.0-36.0); MCV 89 fL (80-95); MPV 9.2 fL (8.0-11.0); Monocytes % 12.8; Neutrophils % 29.5; Platelet Count 313 10^3/uL (130-400); RBC 4.23 10^6/uL (4.36-5.78); RDW 16.6 % (11.8-14.1); RDW-SD 53.9 fL; WBC 3.97 10^3/uL (4.4-10.8)
[2022-03-07 16:36] LABS: Anion Gap 5.6 mmol/L (3-11); BUN 6 mg/dL (7-18); CO2 27.4 mmol/L (21.0-32.0); CREATININE 0.9 mg/dL (0.70-1.30); Calcium 8.7 mg/dL (8.5-10.1); Chloride 106 mmol/L (98-107); Glucose 117 mg/dL (74-106); Potassium 3.9 mmol/L (3.5-5.1); Sodium 139 mmol/L (136-145)
[2022-03-07] MEDS: guaiFENesin 600 MG TABCR PO ×2 (16:43→20:42)
[2022-03-07] MEDS: Thiamine 100 MG TAB PO (16:43)
[2022-03-07 17:37] LABS: Procalcitonin < 0.1 ng/mL
[2022-03-07] MEDS: Amoxicillin 875/Clav. 125 TAB PO (20:42)
[2022-03-07] MEDS: hydrOXYzine PAMOATE 25 MG CAP 50 MG PO (21:30)
[2022-03-07 21:35] VITALS: BP 101/61; PULSE 56; RESP 16; TEMP 36.1; O2SAT 94
[2022-03-08 05:00] VITALS: BP 106/64; PULSE 48; RESP 14; TEMP 36.5; O2SAT 94
[2022-03-08 07:33] LABS: Abs Immature Grans 0.01 10^3/uL (0.0-0.06); Absolute Basophil Count 0.02 10^3/uL (0.0-0.2); Absolute Eosinophil Count 0.23 10^3/uL (0.0-0.7); Absolute Lymphocyte Count 2.19 10^3/uL (1.2-3.4); Absolute Monocyte Count 0.61 10^3/uL (0.1-0.8); Absolute Neutrophil Count 2.27 10^3/uL (1.2-6.7); Basophils % 0.4; Eosinophils % 4.3; HCT 38.1 % (40.0-50.0); Immature Grans % 0.2; Lymphocytes % 41.1; MCH 27.9 pg (27.0-33.0); MCHC 31.5 % (32.0-36.0); MCV 89 fL (80-95); MPV 9.6 fL (8.0-11.0); Monocytes % 11.4; Neutrophils % 42.6; Platelet Count 312 10^3/uL (130-400); RDW 16.6 % (11.8-14.1); RDW-SD 54.1 fL; WBC 5.33 10^3/uL (4.4-10.8)
[2022-03-08 07:44] VITALS: BP 102/63; PULSE 46; RESP 14; TEMP 36.7; O2SAT 98
[2022-03-08 07:49] LABS: ALT 18 U/L (16-63); AST 20 U/L (15-37); Albumin 2.6 g/dL (3.4-5.0); Alkaline Phosphatase 75 U/L (46-116); Anion Gap 6.7 mmol/L (3-11); BUN 6 mg/dL (7-18); Bilirubin, Direct 0.1 mg/dL (0.0-0.2); Bilirubin, Total 0.2 mg/dL (0.2-1.0); CO2 28.3 mmol/L (21.0-32.0); CREATININE 0.9 mg/dL (0.70-1.30); Calcium 8.9 mg/dL (8.5-10.1); Chloride 107 mmol/L (98-107); Glucose 103 mg/dL (74-106); Magnesium 1.9 mg/dL (1.8-2.4); Potassium 3.7 mmol/L (3.5-5.1); Sodium 142 mmol/L (136-145); Total Protein 6.8 g/dL (6.4-8.2)
[2022-03-08] MEDS: Amoxicillin 875/Clav. 125 TAB PO (08:05)
[2022-03-08] MEDS: FLUoxetine 20 MG CAP 80 MG PO (08:05)
[2022-03-08] MEDS: chlordiazePOXIDE 25 MG CAP PO ×2 (08:05→13:11)
[2022-03-08] MEDS: Enoxaparin 40 MG/0.4 ML SYR SC (08:05)
[2022-03-08] MEDS: Methadone Liquid 10 MG/ML 45 MG PO (08:05)
[2022-03-08] MEDS: Cyanocobalamin 500 MCG TAB 1000 MCG PO (08:06)
[2022-03-08] MEDS: Folic Acid 1 MG TAB PO (08:06)
[2022-03-08] MEDS: Multivitamin TAB 1 TAB PO (08:06)
[2022-03-08] MEDS: Loratidine 10 MG TAB PO (08:06)
[2022-03-08] MEDS: Thiamine 100 MG TAB PO (08:06)
[2022-03-08] MEDS: guaiFENesin 600 MG TABCR PO (08:06)
[2022-03-08] MEDS: Hydrocortisone 1% CR 30 GM TUBE TP (10:06)
--- NOTE | 2022-03-08 11:22 | PDOC.CMPRO ---
- If Service Date Differs Date of service: 03/08/22 Time of Service: 11:22
--- NOTE | 2022-03-08 12:43 | PDOC.MHCN_ITS ---
Date of service: 03/08/22 Time of Service: 11:43 Mental Health Crisis Note Presenting Issue How did you arrive at the ED and why did you come: Pt arrived on 03.06.2022 after leaving AMA in the early am on the same date to use. He is seeking inpaitent treatment for co-occuring. Precipitating Factors Pt denied current SI and HI. He stated that he worries about becoming SI if he leaves and starts to drink again. Disposition BEHAVIOR: Pt is cooperative but is also manipulating to stay in the hospital. He was anxious when informed that he did not meet criteria. EYE CONTACT: Pt made fair eye contact. MOOD: Pt appeared anxious. He endorsed depression. AFFECT: PT's affect is flat. APPETITE: Pt reported eating better. SLEEP(trouble falling/staying asleep: Pt reported okay sleep but endorsed being tired. Plan Pt completed but only minimally engaged in a pro active safety plan. He refused to sign BREE's that he originally agreed to prior to informing him he did not meet criteria for inpatient services. [facility] will seek crisis bed level of treatment for him. Signature Clinician's Name/Title: Angeline Calhoun MS, [facility] Emergency Services Clinician, [facility]
--- NOTE | 2022-03-08 13:28 | W.PM.DS.N ---
Date of service: 03/08/22 Time of Service: 12:28 DS: Diagnosis Discharge Diagnosis (1) Depression: Status: Chronic (2) Suicidal ideation: Status: Resolved (3) Alcohol dependence: Status: Chronic (4) Chronic deep vein thrombosis (DVT): Status: Acute (5) Acute bronchitis: Status: Acute Discharge Plan Disposition Patient Disposition: AGAINST MEDICAL ADVICE Condition: Stable Discharge Details Reason For Visit: Depression Admit Date/Time: 03/07/22 03:59 Admit Provider: Madan Bailey Attending Provider: Madan Bailey Primary Care Provider: Todd Corey Hospital Course Hospital Course: Mr Ken is a 41 year old male with PMHx of polysubstance abuse including alcohol and IV heroin, as well as h/o depression with a recent admission for suicidal ideation at our facility, after which he had left AMA on 03/06 and who returned to [facility] ED on 03/07/22 after drinking and having used IV heroin and again reporting suicidal ideation. He was evaluated by mental health and, at that time, felt to not have active suicidal ideation, but to benefit from a voluntary psychiatric admission, which he awaited on our service. From the medical stand point, he did have acute bronchitis, for which we started him on augmentin with prn albuterol. He was treated with scheduled librium and did not show signs of alcohol withdrawal. Today, he was evaluated by mental health again, since he was medically cleared. Mental health felt he was safe for discharge home with outpatient follow up with mental health. The patient left without waiting for prescriptions and, therefore, AMA, but was medically stable for discharge. Because he would not commit to not drinking, I did not prescribe librium. Additionally, patient's PCP needs to follow up with him on whether he should still be on eliquis for his chronic DVT. He should have an outpatient doppler of LLE. He is not on anticoagulation now and it's been 6 months since his DVT. The patient should return to the ED should he have suicidal ideation and he should follow up with recovery assistant and with [facility] for his depression and substance abuse. Care for patient as well as completion of his discharge summary on day of discharge took 35 minutes. Home Meds and New Rx's Prescriptions: New amoxicillin-pot clavulanate 875-125 mg Tablet 1 tab PO BID Qty: 20 0RF naloxone [Narcan] 4 mg/actuation spray,non-aerosol 4 mg intranasal Q2-3M PRNQty: 2 0RF Rx Instructions: spray 1 dose into ONE nostril; alternate nostrils w each dose until help arrives Continued methadone 10 MG/ML concentrate 45 mg PO DAILY fluoxetine 40 mg capsule 80 mg PO DAILY Label Comments: TK 2 CS PO QAM hydroxyzine pamoate 50 mg capsule 50 mg PO Q4H PRN Label Comments: TK 1 C PO Q 4 H PRN loratadine 10 mg tablet 10 mg PO DAILY Label Comments: TK 1 T PO QD albuterol sulfate [Ventolin HFA] 90 mcg/actuation Hfa Aerosol Inhaler 2 puff inhalation Q4H PRN PRNQty: 8.5 0RF cetirizine 10 mg Tablet 10 mg PO HS Qty: 30 0RF cyanocobalamin (vitamin B-12) [Vitamin B-12] 500 mcg Tablet 1,000 mcg PO DAILY Qty: 30 0RF folic acid 1 mg Tablet 1 mg PO QAM Qty: 30 0RF Discharge Instructions Instructions: Depression (DC), Abuse of Alcohol (DC), Help Prevent Suicide (DC), Narcotic Use Disorder (DC) Referrals: [facility] [Outside] Todd Corey MD [Primary Care Provider] - Activity:: Activity as Tolerated Equipment/Supplies:: No Equipment Needed Diet:: As Tolerated Discharge Orders Discharge Orders: Discharge Order (Routine); Ordered 03/08/22 Ordered By: Araceli Beyer Discharge Data Discharge Date/Time-TO BE ENTERED AT DEPARTURE: 03/08/22 13:29 DS: Summary Time Spent with Patient providing and/or coordinating discharge services: Greater than 30 minutes Status at Discharge Functional status at discharge: independent ambulation Overall status at discharge: patient is back to baseline Mental Status: mental status grossly normal Speech and Movement: speech and movement normal Mood: anxious mood Affect: normal affect Exam Narrative Exam Narrative: General: Pleasant middle-aged male, not tremulous, A&Ox3, anxious HEENT: EOMI, MMM Heart: not auscultated Lungs: nonlabored breathing today, not coughing Abdomen: nondistended Extremities: no edema Psych Mental Status: mental status grossly normal Speech and Movement: speech and movement normal Mood: anxious mood Affect: normal affect DS: Data Vitals/I&O Vitals and I&O: Vital Signs Temperature 36.7 C 03/08/22 07:44 Temperature Source Tympanic 03/08/22 07:44 Pulse 46 L 03/08/22 07:44 Pulse Rhythm Regular 03/08/22 10:55 Respiratory Rate 14 03/08/22 07:44 Respiratory Effort Non-Labored 03/08/22 10:55 Respiratory Depth Normal 03/08/22 10:55 Respiratory Pattern Normal 03/08/22 10:55 Blood Pressure 102/63 03/08/22 07:44 Blood Pressure Position Sitting 03/06/22 15:06 Pulse Oximetry 98 03/08/22 07:44 Oxygen Delivery Method Room Air 03/08/22 07:44 Oxygen Flow Rate 0 03/08/22 07:44 Pain Level 8 03/08/22 07:44 Intake & Output 03/07/22 03/08/22 03/08/22 23:59 11:59 23:59 Intake Total 600 / 600 Balance 600 / 600 Intake: Oral 600 / 600 Other: Comment pt voiding independently. pt denies dysuria patient voided directly in toilet Voiding Methods Toilet Data Completed and Pending Completed studies during hospitalization [Text1]: CXR: Stable appearance of the lungs.? Labs on day of discharge: Labs from last 24 hours 03/08/22 03/08/22 03/07/22 06:50 06:50 16:17 WBC 5.33 3.97 L RBC 4.30 L 4.23 L Hgb 12.0 L 12.0 L Hct 38.1 L 37.8 L MCV 89 89 MCH 27.9 28.4 MCHC 31.5 L 31.7 L D RDW 16.6 H 16.6 H Plt Count 312 313 MPV 9.6 9.2 Immature Gran % 0.2 0.3 Neutrophils % 42.6 29.5 Lymphocytes % 41.1 50.6 Monocytes % 11.4 12.8 Eosinophils % 4.3 6.3 Basophils % 0.4 0.5 Nucleated RBC % 0.0 0.0 Absolute Neutrophils 2.27 1.17 L Absolute Lymphocytes 2.19 2.01 Absolute Monocytes 0.61 0.51 Absolute Eosinophils 0.23 0.25 Absolute Basophils 0.02 0.02 Sodium 142 Potassium 3.7 Chloride 107 Carbon Dioxide 28.3 Anion Gap 6.7 BUN 6 L Creatinine 0.9 Estimated GFR/1.73 m2 >= 60.00 Glucose 103 Calcium 8.9 Magnesium 1.9 Total Bilirubin 0.2 Conjugated Bilirubin 0.1 AST 20 ALT 18 Alkaline Phosphatase 75 Total Protein 6.8 Albumin 2.6 L Procalcitonin 03/07/22 03/07/22 16:17 16:17 WBC RBC Hgb Hct MCV MCH MCHC RDW Plt Count MPV Immature Gran % Neutrophils % Lymphocytes % Monocytes % Eosinophils % Basophils % Nucleated RBC % Absolute Neutrophils Absolute Lymphocytes Absolute Monocytes Absolute Eosinophils Absolute Basophils Sodium 139 Potassium 3.9 Chloride 106 Carbon Dioxide 27.4 Anion Gap 5.6 BUN 6 L Creatinine 0.9 Estimated GFR/1.73 m2 >= 60.00 Glucose 117 H Calcium 8.7 Magnesium 2.0 Total Bilirubin Conjugated Bilirubin AST ALT Alkaline Phosphatase Total Protein Albumin Procalcitonin < 0.1 PFSH All Active Problems (Updated 03/08/22 @ 13:50 by Araceli Beyer MD) Acute bronchitis (Acute) Depression (Chronic) Opioid dependence on agonist therapy (Acute) Alcohol dependence (Chronic) Chronic deep vein thrombosis (DVT) (Acute) Discharge planning issues (Acute) Bronchospasm (Acute) Alcohol withdrawal (Acute) Depression (Chronic) Polysubstance abuse (Acute) Myalgia (Acute) Cocaine withdrawal (Acute) Suicide ideation (Acute) Polysubstance abuse (Chronic) Medical History (Updated 03/08/22 @ 13:50 by Araceli Beyer MD) Hepatitis B Hepatitis C History of osteomyelitis Family History Other Alcohol use disorder Depression Social History (Updated 03/02/22 @ 08:47 by Madan Palafox) Smoking/Tobacco Use Status: Former Tobacco Use Smoking risk assessment performed?: Yes Alcohol Intake: current Alcohol Intake frequency: 3 or more drinks per day Alcohol type: beer and hard liquor Drug use: Daily Substance use type: marijuana Details: drinks a case and a half of beer a day and a fifth of vodka. Do you feel safe at home: Yes Do you feel safe in your relationship?: Yes Additional Social history: Currently homeless. Has 13 year old son in [place] that does not live with him.
--- NOTE | 2022-03-08 16:52 | CMDISCH_ITS ---
- If Service Date Differs Date of service: 03/08/22 Time of Service: 16:52 Care Management Discharge Reason for Hospitalization: Depression Discharge Plan: William was discharged home with a safety plan coordinated by [facility] crisis screener. He will follow up with his community mental health team. William left before his prescriptions were ready and discharge instructions given, therefore, per provider, it was AMA. He informed yesterday that he lives in [place] with his aunt and uncle and 13 year old son, but today told staff that he has no where to go. It is unclear which statement is accurate. Patient/Family Education Needs: AMA - MH Services (Omit if N/A) Current MH Services: [facility]
== END 2022-03-08 13:29 | disposition left against medical advice (07) ==
LOC: ER 03-07 04:16 → MS 03-07 04:46
PROVIDERS: Internal Medicine; Admitting Provider Family Medicine; Emergency Provider Emergency Medicine; PCP Family Medicine; Visit Provider Family Medicine
DX: F32.A Depression, unspecified (principal); Z20.822 Contact with and (suspected) exposure to COVID-19; R45.851 Suicidal ideations; J20.9 Acute bronchitis, unspecified; F11.20 Opioid dependence, uncomplicated; F19.10 Other psychoactive substance abuse, uncomplicated; F10.20 Alcohol dependence, uncomplicated; Z59.00 Homelessness unspecified; Z87.891 Personal history of nicotine dependence; Z86.718 Personal history of other venous thrombosis and embolism
CPT/HCPCS: 36415; 80048; 80053; 80076; 80307; 84145; 87635; 96372; 99285; J1650; 71045; 80320; 80329; 83735; 84443; 85025; 85049; 99217; 99219; G0378

== ENCOUNTER 2022-06-19 21:04 | Inpatient (IN) | payer MEDICAID, SELFPAY ==
[2022-06-19 21:13] VITALS: BP 134/80; PULSE 73; RESP 18; TEMP 36.7; O2SAT 97
[2022-06-19 22:20] LABS: *AMPHETAMINES SCREEN URINE Negative (Negative); *BARBITURATES SCREEN URINE Negative (Negative); *BENZODIAZEPINES SCREEN URINE Negative (Negative); Cannabinoids THC Positive (Negative); Cocaine Screen,Urine Positive (Negative); METHADONE URINE SCREEN Positive (Negative); OPIATES URINE SCREEN Negative (Negative)
[2022-06-19 22:21] LABS: Tricyclic Antidepressants Negative (Negative)
[2022-06-19 22:24] LABS: Bilirubin Negative (Negative); Blood Negative (Negative); Clarity Clear (Clear); Glucose Negative (Negative); Ketones Negative (Negative); Leukocyte Esterase Negative (Negative); Nitrite Negative (Negative); Urobilinogen 0.2 EU/dL (Up TO 0.2)
[2022-06-19 23:10] LABS: Abs Immature Grans 0.01 10^3/uL (0.0-0.06); Absolute Basophil Count 0.05 10^3/uL (0.0-0.2); Absolute Eosinophil Count 0.22 10^3/uL (0.0-0.7); Absolute Monocyte Count 0.72 10^3/uL (0.1-0.8); Absolute Neutrophil Count 5.01 10^3/uL (1.2-6.7); Basophils % 0.5; Eosinophils % 2.4; HCT 39.6 % (40.0-50.0); HGB 12.8 g/dL (13.5-17.5); Immature Grans % 0.1; Lymphocytes % 35.4; MCH 28.3 pg (27.0-33.0); MCHC 32.3 % (32.0-36.0); MCV 87 fL (80-95); MPV 8.6 fL (8.0-11.0); Monocytes % 7.7; Neutrophils % 53.9; Platelet Count 306 10^3/uL (130-400); RBC 4.53 10^6/uL (4.36-5.78); RDW 16.5 % (11.8-14.1); RDW-SD 52.2 fL; WBC 9.31 10^3/uL (4.4-10.8)
[2022-06-19 23:14] LABS: Prothrombin Time 10.2 sec (9.3-11.0)
[2022-06-19 23:26] LABS: ALT 14 U/L (16-63); AST 17 U/L (15-37); Albumin 3.4 g/dL (3.4-5.0); Alkaline Phosphatase 96 U/L (46-116); Anion Gap 6.6 mmol/L (3-11); BUN 4 mg/dL (7-18); Bilirubin, Total 0.3 mg/dL (0.2-1.0); CO2 29.4 mmol/L (21.0-32.0); CREATININE 0.9 mg/dL (0.70-1.30); Calcium 8.6 mg/dL (8.5-10.1); Chloride 101 mmol/L (98-107); Estimated GFR 109.36 (mL/min/1.73m2); Glucose 80 mg/dL (74-106); Lipase 1145 U/L (73-393); Potassium 3.7 mmol/L (3.5-5.1); Sodium 137 mmol/L (136-145); TSH (W/Ref FT4) 2.77 uIU/mL (0.36-3.74); Total Protein 7.8 g/dL (6.4-8.2)
--- NOTE | 2022-06-19 23:45 | DI.CT_ITS ---
Exam(s) CT ABDOMEN PELVIS WO EXAM: CT ABDOMEN PELVIS WO CLINICAL HISTORY: abdominal pain, pancreatitis. TECHNIQUE: Imaging Protocol: Axial computed tomography images with coronal and sagittal reformatted images were created and reviewed. COMPARISON: CT CHEST ABD PELVIS WITH CONTRAST from 07/15/[address] CHEST PE CTA from 03/20/2021 FINDINGS: ABDOMEN: Lung Bases: There is a stable 3 mm nodule in the left lower lobe. Liver: Normal density. No measurable mass. Gallbladder and biliary tract: No radiodense calculus or biliary ductal dilation. Pancreas: No abnormal calcification or peripancreatic fluid collection. There is normal density of t he pancreas. There is a question of mild stranding around the head of the pancreas. Spleen: Normal. Kidneys: Normal size, contour and axis.No radiodense stones or obstructive uropathy. No masses seen. Adrenal glands: No mass is seen. Lymph nodes: Within normal limits. Abdominal Aorta: Abdominal portion non-dilated. Mild atherosclerosis. PELVIS: Bladder:The urinary bladder is not well distended. No stranding is seen around the urinary bladder. Bowel: No evidence of obstruction. There is a question of mild circumferential wall thickening in th e proximal transverse colon (series 5, images [id number]). The stomach is moderately distended with flu id. There are fluid-filled small bowel loops with air-fluid levels. No evidence of appendicitis. Peritoneal cavity: No ascites, collection or mesenteric inflammatory response. No free air. Reproductive organs: Unremarkable as visualized. Bones: Within normal limits. Soft Tissues: Within normal limits. IMPRESSION: 1. Question of mild stranding around the head of the pancreas. This may represent acute pancreatitis . Please correlate clinically. No peripancreatic fluid collection is seen. No free air is identifi ed. 2. Question of circumferential thickening in the proximal transverse colon. This may be due to under distention, but mass cannot be excluded. Further evaluation with barium enema or colonoscopy is roe mmended. 3. Fluid-filled loops of small bowel and stomach which may represent a diarrheal state/Gastroenteriti s. Incidental Findings RADIATION DOSE DELIVERED: 857.23mGy.cm Total DLP DATA REPOSITORY: All CT scans at this facility are submitted to the National Radiology Data Registry (NRDR) Dose Index Registry (DIR) with the [employer] (A[employer]). RADIATION OPTIMIZATION: All CT scans at this facility use at least one of these dose optimization te chniques: automated exposure control; mA and/or kV adjustment per patient size (includes targeted exa ms where dose is matched to clinical indication); or iterative reconstruction.
[2022-06-19] MEDS: Normal Saline 1,000 ML 1000 ML IV (23:47)
[2022-06-20] VITALS (11 sets, daily range): BP systolic 131–152; BP diastolic 78–93; PULSE 51–60; RESP 12–18; TEMP 35.7–37.1; O2SAT 96–98
--- NOTE | 2022-06-20 00:10 | HPE_ITS ---
Assessment and Plan Assessment and plan (1) Suicidal ideation: Status: Resolved Assessment and plan: Assessed by mental health - plan for voluntary placement [facility] (2) Depression: Status: Chronic Assessment and plan: Continue fluoxetine and bupropion - verify meds in am (3) Opioid dependence on agonist therapy: Status: Acute Assessment and plan: reportedly on methadone - will continue after dose verified in the morning with pharmacy (4) Alcohol dependence: Status: Chronic Assessment and plan: on CIWA PO benzo protocol, no active signs of withdrawal (5) Polysubstance abuse: Status: Acute (6) Pancreatitis: Status: Chronic Assessment and plan: s/p 1 L NS in ED. Will plan for 1L LR at 150cc/hr Ok for regular if he can tolerate this Zofran prn for nausea - will get EKG if not done in ED (assess for QTc given med list) Abdominal imaging ordered in ED History of Present Illness Narrative: This is a 41 yo man who has a history of polysubstance use disorder on methadone who is being admitted for suicidal ideation and found to have pancreatitis in addition to active alcohol intoxication. He was recently discharged from [facility] on 03[facility]22 for similar issues surrounding polysubstance use and suicidal thoughts, At that time mental health thought he would benefit from voluntary admission, as is the case this everning as well. During the work up for abdominal pain his lipase was found to be elevated to over 1000 so I did request the ED to obtain abdominal imaging. The patient reports significant alcohol use and endorsed a plan to overdose on IV heroin intentionally to the ED provider. He was assessed by mental health who felt as though he would benefit from voluntary placement. The patient does have significant alcohol use in addition to polysubstance use (as outlined in his U tox) but does not have active signs of withdrawal at the moment. He is written for 1 liter of NS in the ER. He also states that he has had delirium tremens in the past along with withdrawal seizures, but the patient also does seem to confabulate. He complains of some back pain and lower abdominal pain. He states the lorazepam he received overnight did not help with withdrawals. Review of Systems All systems reviewed & are unremarkable except as noted in HPI and below PFSH All Active Problems (Updated 06/20/22 @ 00:47 by SYL Smalls) Suicidal ideation (Acute) Pancreatitis (Chronic) Depression (Chronic) Opioid dependence on agonist therapy (Acute) Alcohol dependence (Chronic) Polysubstance abuse (Acute) Medical History (Updated 06/20/22 @ 00:47 by SYL Smalls) Acute bronchitis Alcohol withdrawal Bronchospasm Chronic deep vein thrombosis (DVT) Cocaine withdrawal Depression Hepatitis B Hepatitis C History of osteomyelitis Polysubstance abuse Suicide ideation Family History Other Alcohol use disorder Depression Social History (Updated 03/02/22 @ 08:47 by Madan Palafox) Smoking/Tobacco Use Status: Former Tobacco Use Smoking risk assessment performed?: Yes Alcohol Intake: current Alcohol Intake frequency: 3 or more drinks per day Alcohol type: beer and hard liquor Drug use: Binges Substance use type: marijuana Details: drinks a case and a half of beer a day and a fifth of vodka. Do you feel safe at home: Yes Do you feel safe in your relationship?: Yes Additional Social history: Currently homeless. Has 13 year old son in [place] that does not live with him. Meds Allergies and Home Medications Allergies Allergy/AdvReac Type Severity Reaction Status Date / Time No Known Allergies Allergy Unverified 03/06/22 15:18 Home Medications Medication Instructions Recorded Confirmed Type methadone 10 mg/mL oral concentrate 45 mg PO DAILY 03/31/14 06/19/22 History fluoxetine 40 mg capsule 80 mg PO DAILY 10/09/20 06/19/22 History hydroxyzine pamoate 50 mg capsule 50 mg PO Q4H PRN 10/09/20 06/19/22 History loratadine 10 mg tablet 10 mg PO DAILY 10/09/20 06/19/22 History albuterol sulfate 90 mcg/actuation 2 puff inhalation Q4H PRN PRN #8.5 02/20/22 06/20/22 Rx aerosol inhaler (Ventolin HFA) grams cetirizine 10 mg tablet 10 mg PO HS #30 tabs 02/20/22 06/20/22 Rx cyanocobalamin (vitamin B-12) 500 1,000 mcg PO DAILY #30 tabs 02/20/22 06/20/22 Rx mcg tablet (Vitamin B-12) folic acid 1 mg tablet 1 mg PO QAM #30 tabs 02/20/22 06/20/22 Rx naloxone 4 mg/actuation nasal 4 mg intranasal Q2-3M PRN #2 ea 03/08/22 06/19/22 Rx spray (Narcan) bupropion HCl 300 mg 24 hr tablet, 150 mg PO DAILY 06/19/22 06/19/22 History extended release gabapentin 300 mg capsule 600 mg PO QID 06/19/22 06/19/22 History omeprazole 40 mg capsule,delayed 40 mg PO DAILY 06/19/22 06/19/22 History release Exam Narrative Exam Narrative: Gen: NAD, normal respiratory effort, well-nourished HENT: PERRL, nasal turbinates normal without erythema or inflammation, moist oral mucosa, Mallampati 2, No LAD or JVD Chest: No respiratory distress, normal appearance of chest, clear to auscultation bilaterally, no crackles or wheezes, normal inspiratory effort Heart: regular rate and rhythym, no murmurs, rubs or gallops Abdomen: Non-distended, soft, subjective lower abdominal tenderness Extremities: No clubbing, edema, cyanosis, rashes Neuro: AAOx3 , non focal Psych: cooperative, appropriate mental affect Results Labs Result diagrams: 06/19/22 22:55 06/19/22 22:55 Labs: Laboratory Results - last 24 hr 06/19/22 06/19/22 06/19/22 21:35 21:35 22:03 WBC RBC Hgb Hct MCV MCH MCHC RDW Plt Count MPV Immature Gran % Neutrophils % Lymphocytes % Monocytes % Eosinophils % Basophils % Nucleated RBC % Absolute Neutrophils Absolute Lymphocytes Absolute Monocytes Absolute Eosinophils Absolute Basophils PT INR Sodium Potassium Chloride Carbon Dioxide Anion Gap BUN Creatinine Est GFR (CKD-EPI 2020) Glucose Calcium Total Bilirubin AST ALT Alkaline Phosphatase Total Protein Albumin Lipase TSH Urine Color Yellow Urine Clarity Clear Urine pH 6.0 Ur Specific [place] 1.010 Urine Protein Negative Urine Ketones Negative Urine Blood Negative Urine Nitrite Negative Urine Bilirubin Negative Urine Urobilinogen 0.2 Ur Leukocyte Esterase Negative Urine Glucose Negative Urine Opiates Screen Negative Cancelled Urine Methadone Screen Positive A Cancelled Ur Barbiturates Screen Negative Cancelled Ur Tricyclics Screen Negative Cancelled Ur Amphetamines Screen Negative Cancelled U Benzodiazepines Scrn Negative Cancelled Urine Cocaine Screen Positive A Cancelled Ur THC Screen Positive A Cancelled Ethyl Alcohol Patient ABO/Rh Antibody Screen 06/19/22 06/19/22 06/19/22 22:55 22:55 22:55 WBC 9.31 RBC 4.53 Hgb 12.8 L Hct 39.6 L MCV 87 MCH 28.3 MCHC 32.3 RDW 16.5 H Plt Count 306 MPV 8.6 Immature Gran % 0.1 Neutrophils % 53.9 Lymphocytes % 35.4 Monocytes % 7.7 Eosinophils % 2.4 Basophils % 0.5 Nucleated RBC % 0.0 Absolute Neutrophils 5.01 Absolute Lymphocytes 3.30 Absolute Monocytes 0.72 Absolute Eosinophils 0.22 Absolute Basophils 0.05 PT 10.2 INR 1.0 Sodium 137 Potassium 3.7 Chloride 101 Carbon Dioxide 29.4 Anion Gap 6.6 BUN 4 L Creatinine 0.9 Est GFR (CKD-EPI 2020) 109.36 Glucose 80 Calcium 8.6 Total Bilirubin 0.3 AST 17 ALT 14 L Alkaline Phosphatase 96 Total Protein 7.8 Albumin 3.4 Lipase 1145 H TSH 2.77 Urine Color Urine Clarity Urine pH Ur Specific [place] Urine Protein Urine Ketones Urine Blood Urine Nitrite Urine Bilirubin Urine Urobilinogen Ur Leukocyte Esterase Urine Glucose Urine Opiates Screen Urine Methadone Screen Ur Barbiturates Screen Ur Tricyclics Screen Ur Amphetamines Screen U Benzodiazepines Scrn Urine Cocaine Screen Ur THC Screen Ethyl Alcohol Patient ABO/Rh Antibody Screen 06/19/22 06/19/22 22:55 22:55 WBC RBC Hgb Hct MCV MCH MCHC RDW Plt Count MPV Immature Gran % Neutrophils % Lymphocytes % Monocytes % Eosinophils % Basophils % Nucleated RBC % Absolute Neutrophils Absolute Lymphocytes Absolute Monocytes Absolute Eosinophils Absolute Basophils PT INR Sodium Potassium Chloride Carbon Dioxide Anion Gap BUN Creatinine Est GFR (CKD-EPI 2020) Glucose Calcium Total Bilirubin AST ALT Alkaline Phosphatase Total Protein Albumin Lipase TSH Urine Color Urine Clarity Urine pH Ur Specific [place] Urine Protein Urine Ketones Urine Blood Urine Nitrite Urine Bilirubin Urine Urobilinogen Ur Leukocyte Esterase Urine Glucose Urine Opiates Screen Urine Methadone Screen Ur Barbiturates Screen Ur Tricyclics Screen Ur Amphetamines Screen U Benzodiazepines Scrn Urine Cocaine Screen Ur THC Screen Ethyl Alcohol 108.0 H Patient ABO/Rh O Positive Antibody Screen NEGATIVE Last Vital Signs Temp 36.7 C 06/19/22 21:13 Pulse 73 06/19/22 21:13 Resp 18 06/19/22 21:13 BP 134/80 06/19/22 21:13 Pulse Ox 97 06/19/22 21:13 PAWSS Have you Been Recently Intoxicated or Drunk Within the Last 30 days?: Yes Have you Ever Experienced Previous Episodes of Alcohol Withdrawal?: Yes Have you ever Experienced Withdrawal Seizures?: Yes Have you ever Experienced Delirium Tremens(DT)s?: Yes Have you ever Experienced Blackouts?: Yes Have you ever Combined Alcohol with other Downers within the last 90 days?: Yes Have you ever Combined Alcohol with any other Substance of Abuse during the last 90 days?: Yes Positive Blood Alcohol level on Presentation? [PCS.BAL]: Yes Evidence of Increased Autonomic Activity (i.e. HR>120, tremor, sweating, agitation, nausea)?: Yes Result: 9
--- NOTE | 2022-06-20 00:40 | W.ED.GENAD ---
Discharge Plan Disposition Patient Disposition: [facility] INPATIENT Condition: Stable Discharge Details Clinical Impression: Polysubstance abuse, Depression, Pancreatitis, Suicidal ideation Primary Care Provider: Unknown,Unknown ED Provider: Lisa Reyna Home Meds and New Rx's Prescriptions: Continued methadone 10 MG/ML concentrate 45 mg PO DAILY omeprazole 40 mg Capsule,Delayed Release(Dr/Ec) 40 mg PO DAILY gabapentin 300 mg capsule 600 mg PO QID bupropion HCl 300 mg tablet extended release 24 hr 150 mg PO DAILY Label Comments: TAKE 1 TABLET BY MOUTH EVERY DAY fluoxetine 40 mg capsule 80 mg PO DAILY Label Comments: TK 2 CS PO QAM hydroxyzine pamoate 50 mg capsule 50 mg PO Q4H PRN Label Comments: TK 1 C PO Q 4 H PRN loratadine 10 mg tablet 10 mg PO DAILY Label Comments: TK 1 T PO QD albuterol sulfate [Ventolin HFA] 90 mcg/actuation Hfa Aerosol Inhaler 2 puff inhalation Q4H PRN PRNQty: 8.5 0RF cetirizine 10 mg Tablet 10 mg PO HS Qty: 30 0RF cyanocobalamin (vitamin B-12) [Vitamin B-12] 500 mcg Tablet 1,000 mcg PO DAILY Qty: 30 0RF folic acid 1 mg Tablet 1 mg PO QAM Qty: 30 0RF naloxone [Narcan] 4 mg/actuation spray,non-aerosol 4 mg intranasal Q2-3M PRNQty: 2 0RF Rx Instructions: spray 1 dose into ONE nostril; alternate nostrils w each dose until help arrives Medical Decision Making Patient is alert and oriented and pleasant in demeanor but is quite sad and does report suicidal ideation Mental health was consulted and patient is pending voluntary placement for suicidal ideation His labs are within normal limits when compared to prior although he does have an elevated lipase at 114 5 minutes abdominal tenderness a CT scan was ordered His hemoglobin and hematocrit are stable for patient, no indication to perform guaiac at this time, patient denies any current bloody stools He is hemodynamically stable His blood alcohol is 100 currently and is not showing any active evidence of alcohol withdrawal, I am uncertain as whether or not the patient is being forthcoming with the amount of alcohol consumption given his current presentation Will need admission to the hospital for close observation, he will receive CIWA assessment and placed on telemetry monitoring for alcohol withdrawal symptoms He is currently resting comfortably in room, tearful, with stable vitals Case was discussed with Dr. Sweeney She will admit patient pending CT abdomen and pelvis Medical Records Medical records reviewed: Yes I reviewed the patient's medical records. Lab Data Lab results reviewed: Yes I reviewed the patient's lab results. HPI General Date/Time Provider Initiated Documentation: 06/19/22 21:06. HPI Narrative: 41-year-old gentleman with history of polysubstance abuse including cocaine, heroin, and alcohol presents with report of suicidal ideation without attempt to harm self. He states he last used heroin approximately an hour prior to arrival. He states he had 20+ twisted teas prior to assessment in the emergency department. He states his last drink was approximately an hour prior to arrival. He states that he has a plan to overdose on heroin to end his life. He denies any chest pain or shortness of breath. He denies any dizziness or weakness. He states that he has ongoing abdominal pain and that this is not new. He states he occasionally has blood in his stool and this is also not new for him. He denies any nausea or vomiting of blood. He states that he has a history of alcohol withdrawal seizures. He is unsure if the last time this event occurred. He denies any current headache or seizure-like activity. Related Data Home Medications Medication Instructions Recorded Confirmed methadone 10 mg/mL oral concentrate 45 mg PO DAILY 03/31/14 06/19/22 fluoxetine 40 mg capsule 80 mg PO DAILY 10/09/20 06/19/22 hydroxyzine pamoate 50 mg capsule 50 mg PO Q4H PRN 10/09/20 06/19/22 loratadine 10 mg tablet 10 mg PO DAILY 10/09/20 06/19/22 albuterol sulfate 90 mcg/actuation 2 puff inhalation Q4H PRN PRN #8.5 02/20/22 03/06/22 aerosol inhaler (Ventolin HFA) grams cetirizine 10 mg tablet 10 mg PO HS #30 tabs 02/20/22 03/06/22 cyanocobalamin (vitamin B-12) 500 1,000 mcg PO DAILY #30 tabs 02/20/22 03/06/22 mcg tablet (Vitamin B-12) folic acid 1 mg tablet 1 mg PO QAM #30 tabs 02/20/22 03/06/22 naloxone 4 mg/actuation nasal 4 mg intranasal Q2-3M PRN #2 ea 03/08/22 06/19/22 spray (Narcan) bupropion HCl 300 mg 24 hr tablet, 150 mg PO DAILY 06/19/22 06/19/22 extended release gabapentin 300 mg capsule 600 mg PO QID 06/19/22 06/19/22 omeprazole 40 mg capsule,delayed 40 mg PO DAILY 06/19/22 06/19/22 release Previous Rx's Medication Instructions Recorded albuterol sulfate 90 mcg/actuation 2 puff inhalation Q4H PRN PRN #8.5 02/20/22 aerosol inhaler (Ventolin HFA) grams cetirizine 10 mg tablet 10 mg PO HS #30 tabs 02/20/22 cyanocobalamin (vitamin B-12) 500 1,000 mcg PO DAILY #30 tabs 02/20/22 mcg tablet (Vitamin B-12) folic acid 1 mg tablet 1 mg PO QAM #30 tabs 02/20/22 naloxone 4 mg/actuation nasal 4 mg intranasal Q2-3M PRN #2 ea 03/08/22 spray (Narcan) Allergies Allergy/AdvReac Type Severity Reaction Status Date / Time No Known Allergies Allergy Unverified 03/06/22 15:18 General Stated Complaint: PsychEval RAVEN: 2 Review of Systems All systems reviewed & are unremarkable except as noted in HPI and below PFSH All Active Problems (Updated 06/20/22 @ 00:47 by SYL Smalls) Suicidal ideation (Acute) Pancreatitis (Chronic) Depression (Chronic) Opioid dependence on agonist therapy (Acute) Alcohol dependence (Chronic) Polysubstance abuse (Acute) Medical History (Updated 06/20/22 @ 00:47 by SYL Smalls) Acute bronchitis Alcohol withdrawal Bronchospasm Chronic deep vein thrombosis (DVT) Cocaine withdrawal Depression Hepatitis B Hepatitis C History of osteomyelitis Polysubstance abuse Suicide ideation Family History Other Alcohol use disorder Depression Social History (Updated 03/02/22 @ 08:47 by Madan Palafox) Smoking/Tobacco Use Status: Former Tobacco Use Smoking risk assessment performed?: Yes Alcohol Intake: current Alcohol Intake frequency: 3 or more drinks per day Alcohol type: beer and hard liquor Drug use: Binges Substance use type: marijuana Details: drinks a case and a half of beer a day and a fifth of vodka. Do you feel safe at home: Yes Do you feel safe in your relationship?: Yes Additional Social history: Currently homeless. Has 13 year old son in [place] that does not live with him. Exam Const General: cooperative and no acute distress Orientation: alert and oriented x3 Eyes Pupils: PERRL Resp Effort & Inspection: normal respiratory effort Auscultation: clear to auscultation bilaterally Cardio Rate: regular rate Rhythm: regular rhythm GI Other: Mild diffuse tenderness without rebound or guarding Skin General skin exam: no rashes or lesions noted Neuro General: patient alert and patient oriented x3 Cranial Nerves: CN's II-XI intact bilaterally and tongue midline Cognition: normal cognition Speech: speech normal Gait: normal gait Extrem General: normal to inspection Psych Appearance: disheveled Mental Status: mental status grossly normal Speech and Movement: speech and movement normal Mood: labile mood Affect: sad Thought Content: suicidality Course Vital Signs Vital signs: Vital Signs Temperature 36.7 C 06/19/22 21:13 Pulse 73 06/19/22 21:13 Respiratory Rate 18 06/19/22 21:13 Blood Pressure 134/80 06/19/22 21:13 Pulse Oximetry 97 06/19/22 21:13 Temperature 36.7 C 06/19/22 21:13 Temperature Source Oral 06/19/22 21:13 Pulse 73 06/19/22 21:13 Respiratory Rate 18 06/19/22 21:13 Respiratory Effort Non-Labored 06/19/22 21:21 Respiratory Pattern Normal 06/19/22 22:00 Blood Pressure 134/80 06/19/22 21:13 Pulse Oximetry 97 06/19/22 21:13 Oxygen Delivery Method Room Air 06/19/22 21:13 Oxygen Flow Rate 0 06/19/22 21:13 Pain Level 10 06/19/22 21:13 Lab/Test Results Lab/Test Results: Laboratory Tests Range/Units 06/19/22 06/19/22 06/19/22 21:35 21:35 22:03 WBC (4.4-10.8) 10^3/uL RBC (4.36-5.78) 10^6/uL Hgb (13.5-17.5) g/dL Hct (40.0-50.0) % MCV (80-95) fL MCH (27.0-33.0) pg MCHC (32.0-36.0) % RDW (11.8-14.1) % Plt Count (130-400) 10^3/uL MPV (8.0-11.0) fL Immature Gran % Neutrophils % Lymphocytes % Monocytes % Eosinophils % Basophils % Nucleated RBC % (0.0-0.3) % Absolute Neutrophils (1.2-6.7) 10^3/uL Absolute Lymphocytes (1.2-3.4) 10^3/uL Absolute Monocytes (0.1-0.8) 10^3/uL Absolute Eosinophils (0.0-0.7) 10^3/uL Absolute Basophils (0.0-0.2) 10^3/uL PT (9.3-11.0) sec INR (0.9-1.1) Sodium (136-145) mmol/L Potassium (3.5-5.1) mmol/L Chloride (98-107) mmol/L Carbon Dioxide (21.0-32.0) mmol/L Anion Gap (3-11) mmol/L BUN (7-18) mg/dL Creatinine (0.70-1.30) mg/dL Est GFR (CKD-EPI 2020) (mL/min/1.73m2) Glucose (74-106) mg/dL Calcium (8.5-10.1) mg/dL Total Bilirubin (0.2-1.0) mg/dL AST (15-37) U/L ALT (16-63) U/L Alkaline Phosphatase (46-116) U/L Total Protein (6.4-8.2) g/dL Albumin (3.4-5.0) g/dL Lipase (73-393) U/L TSH (0.36-3.74) uIU/mL Urine Color (Yellow) Yellow Urine Clarity (Clear) Clear Urine pH (5-8) 6.0 Ur Specific [place] (1.005-1.025) 1.010 Urine Protein (Negative) mg/dL Negative Urine Ketones (Negative) mg/dL Negative Urine Blood (Negative) Negative Urine Nitrite (Negative) Negative Urine Bilirubin (Negative) Negative Urine Urobilinogen (Up TO 0.2) EU/dL 0.2 Ur Leukocyte Esterase (Negative) Negative Urine Glucose (Negative) mg/dL Negative Urine Opiates Screen (Negative) Negative Cancelled Urine Methadone Screen (Negative) Positive A Cancelled Ur Barbiturates Screen (Negative) Negative Cancelled Ur Tricyclics Screen (Negative) Negative Cancelled Ur Amphetamines Screen (Negative) Negative Cancelled U Benzodiazepines Scrn (Negative) Negative Cancelled Urine Cocaine Screen (Negative) Positive A Cancelled Ur THC Screen (Negative) Positive A Cancelled Ethyl Alcohol (<10) mg/dL Patient ABO/Rh Antibody Screen Range/Units 06/19/22 06/19/22 06/19/22 22:55 22:55 22:55 WBC (4.4-10.8) 10^3/uL 9.31 RBC (4.36-5.78) 10^6/uL 4.53 Hgb (13.5-17.5) g/dL 12.8 L Hct (40.0-50.0) % 39.6 L MCV (80-95) fL 87 MCH (27.0-33.0) pg 28.3 MCHC (32.0-36.0) % 32.3 RDW (11.8-14.1) % 16.5 H Plt Count (130-400) 10^3/uL 306 MPV (8.0-11.0) fL 8.6 Immature Gran % 0.1 Neutrophils % 53.9 Lymphocytes % 35.4 Monocytes % 7.7 Eosinophils % 2.4 Basophils % 0.5 Nucleated RBC % (0.0-0.3) % 0.0 Absolute Neutrophils (1.2-6.7) 10^3/uL 5.01 Absolute Lymphocytes (1.2-3.4) 10^3/uL 3.30 Absolute Monocytes (0.1-0.8) 10^3/uL 0.72 Absolute Eosinophils (0.0-0.7) 10^3/uL 0.22 Absolute Basophils (0.0-0.2) 10^3/uL 0.05 PT (9.3-11.0) sec 10.2 INR (0.9-1.1) 1.0 Sodium (136-145) mmol/L 137 Potassium (3.5-5.1) mmol/L 3.7 Chloride (98-107) mmol/L 101 Carbon Dioxide (21.0-32.0) mmol/L 29.4 Anion Gap (3-11) mmol/L 6.6 BUN (7-18) mg/dL 4 L Creatinine (0.70-1.30) mg/dL 0.9 Est GFR (CKD-EPI 2020) (mL/min/1.73m2) 109.36 Glucose (74-106) mg/dL 80 Calcium (8.5-10.1) mg/dL 8.6 Total Bilirubin (0.2-1.0) mg/dL 0.3 AST (15-37) U/L 17 ALT (16-63) U/L 14 L Alkaline Phosphatase (46-116) U/L 96 Total Protein (6.4-8.2) g/dL 7.8 Albumin (3.4-5.0) g/dL 3.4 Lipase (73-393) U/L 1145 H TSH (0.36-3.74) uIU/mL 2.77 Urine Color (Yellow) Urine Clarity (Clear) Urine pH (5-8) Ur Specific [place] (1.005-1.025) Urine Protein (Negative) mg/dL Urine Ketones (Negative) mg/dL Urine Blood (Negative) Urine Nitrite (Negative) Urine Bilirubin (Negative) Urine Urobilinogen (Up TO 0.2) EU/dL Ur Leukocyte Esterase (Negative) Urine Glucose (Negative) mg/dL Urine Opiates Screen (Negative) Urine Methadone Screen (Negative) Ur Barbiturates Screen (Negative) Ur Tricyclics Screen (Negative) Ur Amphetamines Screen (Negative) U Benzodiazepines Scrn (Negative) Urine Cocaine Screen (Negative) Ur THC Screen (Negative) Ethyl Alcohol (<10) mg/dL Patient ABO/Rh Antibody Screen Range/Units 06/19/22 06/19/22 22:55 22:55 WBC (4.4-10.8) 10^3/uL RBC (4.36-5.78) 10^6/uL Hgb (13.5-17.5) g/dL Hct (40.0-50.0) % MCV (80-95) fL MCH (27.0-33.0) pg MCHC (32.0-36.0) % RDW (11.8-14.1) % Plt Count (130-400) 10^3/uL MPV (8.0-11.0) fL Immature Gran % Neutrophils % Lymphocytes % Monocytes % Eosinophils % Basophils % Nucleated RBC % (0.0-0.3) % Absolute Neutrophils (1.2-6.7) 10^3/uL Absolute Lymphocytes (1.2-3.4) 10^3/uL Absolute Monocytes (0.1-0.8) 10^3/uL Absolute Eosinophils (0.0-0.7) 10^3/uL Absolute Basophils (0.0-0.2) 10^3/uL PT (9.3-11.0) sec INR (0.9-1.1) Sodium (136-145) mmol/L Potassium (3.5-5.1) mmol/L Chloride (98-107) mmol/L Carbon Dioxide (21.0-32.0) mmol/L Anion Gap (3-11) mmol/L BUN (7-18) mg/dL Creatinine (0.70-1.30) mg/dL Est GFR (CKD-EPI 2020) (mL/min/1.73m2) Glucose (74-106) mg/dL Calcium (8.5-10.1) mg/dL Total Bilirubin (0.2-1.0) mg/dL AST (15-37) U/L ALT (16-63) U/L Alkaline Phosphatase (46-116) U/L Total Protein (6.4-8.2) g/dL Albumin (3.4-5.0) g/dL Lipase (73-393) U/L TSH (0.36-3.74) uIU/mL Urine Color (Yellow) Urine Clarity (Clear) Urine pH (5-8) Ur Specific [place] (1.005-1.025) Urine Protein (Negative) mg/dL Urine Ketones (Negative) mg/dL Urine Blood (Negative) Urine Nitrite (Negative) Urine Bilirubin (Negative) Urine Urobilinogen (Up TO 0.2) EU/dL Ur Leukocyte Esterase (Negative) Urine Glucose (Negative) mg/dL Urine Opiates Screen (Negative) Urine Methadone Screen (Negative) Ur Barbiturates Screen (Negative) Ur Tricyclics Screen (Negative) Ur Amphetamines Screen (Negative) U Benzodiazepines Scrn (Negative) Urine Cocaine Screen (Negative) Ur THC Screen (Negative) Ethyl Alcohol (<10) mg/dL 108.0 H Patient ABO/Rh O Positive Antibody Screen NEGATIVE PAWSS Have you Been Recently Intoxicated or Drunk Within the Last 30 days?: Yes Have you Ever Experienced Previous Episodes of Alcohol Withdrawal?: Yes Have you ever Experienced Withdrawal Seizures?: Yes Have you ever Experienced Delirium Tremens(DT)s?: Yes Have you ever Experienced Blackouts?: Yes Have you ever Combined Alcohol with other Downers within the last 90 days?: Yes Have you ever Combined Alcohol with any other Substance of Abuse during the last 90 days?: Yes Positive Blood Alcohol level on Presentation? [PCS.BAL]: Yes Evidence of Increased Autonomic Activity (i.e. HR>120, tremor, sweating, agitation, nausea)?: Yes Result: 9
[2022-06-20 00:42] LABS: Source Nasal/Nares
[2022-06-20 01:29] LABS: COVID-19 PCR Negative (Negative)
[2022-06-20] MEDS: Lactated Ringers 1,000 ML 150 ML IV (01:42)
--- NOTE | 2022-06-20 02:06 | DI.VRAD_ITS ---
PROCEDURE INFORMATION: Exam: CT Abdomen And Pelvis Without Contrast Exam date and time: 06/20/2022 1:14 AM Age: 41 years old Clinical indication: Abdominal pain; Generalized; Patient HX: Pancreatitis; Additional info: Abdomen pain, pancreatitis TECHNIQUE: Imaging protocol: Computed tomography of the abdomen and pelvis without contrast. Radiation optimization: All CT scans at this facility use at least one of these dose optimization techniques: automated exposure control; mA and/or kV adjustment per patient size (includes targeted exams where dose is matched to clinical indication); or iterative reconstruction. COMPARISON: CT CHEST ABD PELVIS WITH CONTRAST 07/15/2017 10:34 PM FINDINGS: Lungs: Somewhat curvilinear atelectasis or scarring within the right lung base, unchanged. The lung bases are otherwise clear. Heart: The heart is normal in size. No pericardial effusion. Liver: The liver is normal in size. The liver is normal in noncontrast appearance. Gallbladder and bile ducts: No pericholecystic fluid or gallbladder wall thickening. No calcified stones. No ductal dilation. Pancreas: Minimal stranding within the pancreas. No large peripancreatic fluid or pseudocyst. No pancreatic ductal dilatation. Spleen: The spleen is normal appearance. Adrenal glands: The bilateral adrenal glands are normal appearance. The bilateral adrenal glands are normal appearance. Kidneys and ureters: The bilateral kidneys are normal appearance. No hydroureteronephrosis. The bilateral kidneys are normal appearance. No hydroureteronephrosis. Stomach and bowel: The stomach is moderately distended with fluid. The small bowel is fluid-filled with air-fluid levels. The proximal small bowel is slightly prominent. A fskj-[id number] amount of air and liquid stool is seen throughout the colon to the level of the rectum. Colonic diverticulosis without evidence for diverticulitis. No bowel obstruction. Appendix: The appendix is normal appearance. Intraperitoneal space: No free fluid, free air or abscess. Vasculature: Mild calcific atherosclerotic plaque throughout the abdominal aorta and iliac vessels without aneurysm. Lymph nodes: No lymphadenopathy. Urinary bladder: Mild to moderate circumferential wall thickening within the urinary bladder. The urinary bladder is nondistended. Reproductive: The prostate gland is normal in size. Bones/joints: [id number]-[id number] degenerative changes throughout the thoracolumbar spine, most pronounced at L1-L2 where grade 1 retrolisthesis of L1 on L2 is seen. Grade 1 retrolisthesis of L3 on L4 and L4 on L5 as well. No acute compression fracture. Soft tissues: Unremarkable. IMPRESSION: 1. The stomach, small bowel and colon are fluid-filled with air-fluid levels, suggesting a diarrheal state. This may be secondary to an infectious or inflammatory gastroenterocolitis. No bowel obstruction or perforation. No free air or abscess. 2. Subtle stranding within the pancreas, which could represent acute pancreatitis, in the correct clinical context. No pseudocyst or focal fluid collection. No free air. 3. Vbky-oe-nekaxbwx circumferential wall thickening within the urinary bladder, which may be due to underdistension. Cystitis could have this appearance, in the correct clinical context. Dictated and Authenticated by: Silvia Hudson MD. Ordering:NORM Gonzalez MD
[2022-06-20] MEDS: LORazepam 1 MG TAB PO/SL ×2 (04:04→19:40)
--- NOTE | 2022-06-20 06:45 | RT.EKG_ITS ---
APPROVED REPORT Exam: Resting ECG Reason for Exam: QTc evaluation Patient Location: I HR:49 bpm ECG Measurements Heart Rate 49 AXIS DC 137 P 28 QRSd 99 QRS 27 QT 518 T 29 QTc 468 Conclusion Sinus bradycardia...rate< 50 Probable left ventricular hypertrophy...multiple LVH criteria
[2022-06-20] MEDS: Multivitamin TAB 1 TAB PO (08:33)
[2022-06-20] MEDS: FLUoxetine 20 MG CAP 80 MG PO (08:33)
[2022-06-20] MEDS: Folic Acid 1 MG TAB PO (08:33)
[2022-06-20] MEDS: Omeprazole 20 MG CAPCR 40 MG PO (08:33)
[2022-06-20] MEDS: Thiamine 100 MG TAB PO (08:33)
[2022-06-20] MEDS: buPROPion-XL 150 MG TABCR PO (08:33)
--- NOTE | 2022-06-20 09:26 | INITIAL_ITS ---
- If Service Date Differs Date of service: 06/20/22 Time of Service: 09:26 Care Management Initial Assess REASON FOR HOSPITALIZATION:: Polysubstance abuse, Depression, Pancreatitis, Suicidal ideation PAST MEDICAL HISTORY/PAST SURGICAL HISTORY:: All Active Problems (Updated 06/20/22 @ 00:47 by SYL Smalls). Suicidal ideation (Acute). Pancreatitis (Chronic). Depression (Chronic). Opioid dependence on agonist therapy (Acute). Alcohol dependence (Chronic). Polysubstance abuse (Acute). Medical History (Updated 06/20/22 @ 00:47 by SYL Smalls). Acute bronchitis. Alcohol withdrawal. Bronchospasm. Chronic deep vein thrombosis (DVT). Cocaine withdrawal. Depression. Hepatitis B. Hepatitis C. History of osteomyelitis. Polysubstance abuse. Suicide ideation PREVIOUS FUNCTIONAL STATUS/SOCIAL/FAMILY SUPPORTS:: William shares that he is currently homeless and unemployed. He is not forthcoming with information at this time. Per Chart review: William has a 13 year old son that does not live with him. William is independent at baseline and does not currentrly receive any services. CURRENT FUNCTIONAL STATUS:: William was lying in bed when CM met with him with the lights off in his room. He shares with CM that he is wants inpatient treatment. He is willing to talk with [facility] today and is aware that referrals are sent. ADVANCE DIRECTIVES:: None Has patient been provided with info about the portal/API?: Yes Did the patient sign up for the portal?: No CODE STATUS:: Full Code INSURANCE COVERAGE / FINANCIAL ISSUES:: Medicaid CURRENT HOME/COMMUNITY SERVICES/EQUIPMENT:: None PRIMARY CARE PHYSICIAN:: None, Jayoc oncall at time of admission is Radha Whitt. POTENTIAL DISCHARGE NEEDS:: seeking voluntary placement PATIENT/FAMILY EDUCATION NEEDS:: Review of discharge instructions, follow up plan, limitations, activity and discuss Ask Me Three TRANSPORTATION:: to be determined by disposition PLAN:: William is on SI precautions with a 1:1 CPSO, safety plan and is being followed by [facility] crisis clinicians. William is waiting for voluntary placement to a psychiatric facility for SI, once medically cleared. Per Meron at [facility] referrals have been sent to [facility] [place] and [facility]. Transportation will be determined by disposition. CM will continue to follow and support discharge planning concerns.
[2022-06-20] MEDS: Methadone Liquid 10 MG/ML 80 MG PO (09:33)
--- NOTE | 2022-06-20 09:39 | CMSP_ITS ---
- If Service Date Differs Date of service: 06/20/22 Time of Service: 09:39 Care Management Safety Plan Status: Voluntary - Reason for Wait Reason for Wait: Inpatient Admission (Awaiting voluntary psych placement.) VOLUNTARY FOR INPATIENT PSYCHIATRIC STABILIZATION. Patient is appropriate in all interactions since arriving at [facility]; Pt has demonstrated appropriate coping and communication skills, has articulated his or her needs and concerns and is fully engaged during staff interactions. Safety plan has been established with patient, and care team, to adhere to patient goals, identify restrictions based on behavioral status, address nutrition, and determine allowed personal belongings, tools for hygiene and personal care. Determine level of activity including ambulation, level of supervision, visitors, and determine privileges based on behaviors and level of engagement by pt. SAFETY PLAN: 1. Will remain on suicide precautions. In Paper Clothes. 2. Will remain in room under direct supervision of one-on-one staff at all times provided by CPSO, PRODUCE LABORER, DIRECTOR OF LOSS PREVENTION income tax administrator. 3. May have paper cups, plates, finger foods as well as a cardboard spoon with which to eat meals. 4. Follow [facility] Management of the Admitted Behavioral Health Patient policy. 5. Shower permitted with escort at RN discretion. 6. No personal belongings. 7. No visitors at this time. 8. Activities: soft cart items, music tablet, television, and other activities at RN discretion. 9. Bathroom privileges with escort in the ED, available in room without limitation on M/S. 10. Phone: may use [employer] phone at RN discretion. 11. Due to VOLUNTARY status, if patient wishes to leave [facility], staff will contact [facility] Crisis Screener ([phone]) and On-Call Metal Flow Coordinator ([phone]) as soon as possible. In the event of elopement, notify [facility] Police ([phone]). Patient is currently voluntarily at [facility] and seeking inpatient admission when a bed becomes available. [facility] Frontline Production Maintenance Mechanic will continue seeking placement. Please contact the Control Area Operator Metal Flow Coordinator ([phone]) and [facility] Production Maintenance Mechanic ([phone]) for any needed changes in the Safety Plan. Safety plan has been provided to interdepartmental care team.
--- NOTE | 2022-06-20 09:39 | PDOC.CMSAFE ---
- If Service Date Differs Date of service: 06/20/22 Time of Service: 09:39 Care Management Safety Plan Status: Voluntary - Reason for Wait Reason for Wait: Inpatient Admission (Awaiting voluntary psych placement.) VOLUNTARY FOR INPATIENT PSYCHIATRIC STABILIZATION. Patient is appropriate in all interactions since arriving at [facility]; Pt has demonstrated appropriate coping and communication skills, has articulated his or her needs and concerns and is fully engaged during staff interactions. Safety plan has been established with patient, and care team, to adhere to patient goals, identify restrictions based on behavioral status, address nutrition, and determine allowed personal belongings, tools for hygiene and personal care. Determine level of activity including ambulation, level of supervision, visitors, and determine privileges based on behaviors and level of engagement by pt. SAFETY PLAN: 1. Will remain on suicide precautions. In Paper Clothes. 2. Will remain in room under direct supervision of one-on-one staff at all times provided by CPSO, SEEDLING PULLER, DIRECTOR OF CORPORATE RESPONSIBILITY behavioral scientist. 3. May have paper cups, plates, finger foods as well as a cardboard spoon with which to eat meals. 4. Follow [facility] Management of the Admitted Behavioral Health Patient policy. 5. Shower permitted with escort at RN discretion. 6. No personal belongings. 7. No visitors at this time. 8. Activities: soft cart items, music tablet, television, and other activities at RN discretion. 9. Bathroom privileges with escort in the ED, available in room without limitation on M/S. 10. Phone: may use [employer] phone at RN discretion. 11. Due to VOLUNTARY status, if patient wishes to leave [facility], staff will contact [facility] Crisis Screener ([phone]) and On-Call Gristmill Operator ([phone]) as soon as possible. In the event of elopement, notify [facility] Police ([phone]). Patient is currently voluntarily at [facility] and seeking inpatient admission when a bed becomes available. [facility] Frontline Pressure Steamer Tender will continue seeking placement. Please contact the Veneer Layer Gristmill Operator ([phone]) and [facility] Pressure Steamer Tender ([phone]) for any needed changes in the Safety Plan. Safety plan has been provided to interdepartmental care team.
--- NOTE | 2022-06-20 10:22 | W.NUTRFU ---
Date of service: 06/20/22 Time of Service: 10:22 Nutrition Note NOTE: In view of elevated lipase secondary to pancreatitis, diet switched to Fat Restricted for improved tolerance. Time Spent in Nutritional Counseling and Treatment: 0
[2022-06-20 15:52] LABS: Anion Gap 7.1 mmol/L (3-11); BUN 5 mg/dL (7-18); CO2 26.9 mmol/L (21.0-32.0); CREATININE 0.8 mg/dL (0.70-1.30); Calcium 8.8 mg/dL (8.5-10.1); Chloride 103 mmol/L (98-107); Estimated GFR 113.32 (mL/min/1.73m2); Glucose 113 mg/dL (74-106); Sodium 137 mmol/L (136-145)
[2022-06-20 16:08] LABS: PHOSPHORUS 3.6 mg/dL (2.6-4.7)
[2022-06-20 16:09] LABS: Potassium 5.3 mmol/L (3.5-5.1)
--- NOTE | 2022-06-20 18:12 | PGE_ITS ---
Date of Service Date of service: 06/20/22 Time of Service: 13:00 Assessment and Plan Assessment and plan (1) Suicidal ideation: Status: Resolved Assessment and plan: Assessed by mental health - plan for voluntary placement CPSO (2) Pancreatitis: Status: Chronic Assessment and plan: Tolerating regular diet - IV fluids discontinued. Zofran prn for nausea - will get EKG if not done in ED (assess for QTc given med list) Abdominal imaging ordered in ED : Rad report - Question of mild stranding around the head of the pancreas.? This may represent acute pancreatitis, No peripancreatic fluid collection is seen.? No free air is identified.?Question of circumferential thickening in the proximal transverse colon.? This may be due to underdistention, but mass cannot be excluded.? Further evaluation with barium enema or colonoscopy is recommended..Fluid-filled loops of small bowel and stomach which may represent a diarrheal state/Gastroenteritis.? (3) Depression: Status: Chronic Assessment and plan: Continue fluoxetine and bupropion - verified by pharmacy (4) Opioid dependence on agonist therapy: Status: Acute Assessment and plan: On methadone - dose verified by pharmacy (5) Nicotine dependence: Status: Acute Assessment and plan: Nicotine replacement - inhaler (6) Alcohol dependence: Status: Chronic Assessment and plan: on CIWA PO benzo protocol,continues to have no active signs of withdrawal; scoring 0 Thiamine 100mg daily Folic acid 1 mg daily Omeprazole 40 mg daily Ondansetron for nausea (7) Polysubstance abuse: Status: Acute Assessment and plan: as above (8) DVT prophylaxis: Status: Acute Assessment and plan: Enoxiparin 40 mg daily (9) Discharge planning issues: Status: Acute Assessment and plan: Mental health and Care mgt following. Plan to discharge to mental health facility when medically clear. Discussed with Dr Beyer Subjective Subjective Patient reports: no new complaints, feels better, tolerating a regular diet, voiding w/o difficulty and afebrile; denies diarrhea, nausea, vomiting, shortness of breath or fever Interval history since last seen: Lab was unable to draw him, after several attempts he did refuse further attempts. We will try tomorrow, encouraged him to hydrate. He did eat 100% of his lunch. Exam Narrative Exam Narrative: William has been mostly sleeping today. He has no complaints when awake. His CIWA has been 0. He is still willing/wanting to go somewhere for treatment. He is not medically cleared at this time, will check CIWA overnight. Care mgt will do referrals tomorrow. Const General: cooperative and no acute distress Orientation: alert and oriented x3 Eyes Pupils: PERRL Resp Effort & Inspection: normal respiratory effort Auscultation: clear to auscultation bilaterally Cardio Rate: regular rate Rhythm: regular rhythm GI Other: Mild diffuse tenderness without rebound or guarding Skin General skin exam: no rashes or lesions noted Neuro General: patient alert and patient oriented x3 Cranial Nerves: CN's II-XI intact bilaterally and tongue midline Cognition: normal cognition Speech: speech normal Gait: normal gait Extrem General: normal to inspection Psych Appearance: disheveled Mental Status: mental status grossly normal Speech and Movement: speech and movement normal Mood: labile mood Affect: sad Thought Content: suicidality Objective Last Vital Signs Temp 35.7 C L 06/20/22 12:27 Pulse 54 L 06/20/22 12:27 Resp 17 06/20/22 12:27 BP 147/87 H 06/20/22 12:27 Pulse Ox 96 06/20/22 12:27 Laboratory Results - last 24 hr 06/19/22 06/19/22 06/19/22 21:35 21:35 22:03 WBC RBC Hgb Hct MCV MCH MCHC RDW Plt Count MPV Immature Gran % Neutrophils % Lymphocytes % Monocytes % Eosinophils % Basophils % Nucleated RBC % Absolute Neutrophils Absolute Lymphocytes Absolute Monocytes Absolute Eosinophils Absolute Basophils PT INR Sodium Potassium Chloride Carbon Dioxide Anion Gap BUN Creatinine Est GFR (CKD-EPI 2020) Glucose Calcium Phosphorus Magnesium Total Bilirubin AST ALT Alkaline Phosphatase Total Protein Albumin Lipase TSH Urine Color Yellow Urine Clarity Clear Urine pH 6.0 Ur Specific Osprey 1.010 Urine Protein Negative Urine Ketones Negative Urine Blood Negative Urine Nitrite Negative Urine Bilirubin Negative Urine Urobilinogen 0.2 Ur Leukocyte Esterase Negative Urine Glucose Negative Urine Opiates Screen Negative Cancelled Urine Methadone Screen Positive A Cancelled Ur Barbiturates Screen Negative Cancelled Ur Tricyclics Screen Negative Cancelled Ur Amphetamines Screen Negative Cancelled U Benzodiazepines Scrn Negative Cancelled Urine Cocaine Screen Positive A Cancelled Ur THC Screen Positive A Cancelled Ethyl Alcohol COVID-19 Source SARS-CoV-2 (PCR) Patient ABO/Rh Antibody Screen 06/19/22 06/19/22 06/19/22 22:55 22:55 22:55 WBC 9.31 RBC 4.53 Hgb 12.8 L Hct 39.6 L MCV 87 MCH 28.3 MCHC 32.3 RDW 16.5 H Plt Count 306 MPV 8.6 Immature Gran % 0.1 Neutrophils % 53.9 Lymphocytes % 35.4 Monocytes % 7.7 Eosinophils % 2.4 Basophils % 0.5 Nucleated RBC % 0.0 Absolute Neutrophils 5.01 Absolute Lymphocytes 3.30 Absolute Monocytes 0.72 Absolute Eosinophils 0.22 Absolute Basophils 0.05 PT 10.2 INR 1.0 Sodium 137 Potassium 3.7 Chloride 101 Carbon Dioxide 29.4 Anion Gap 6.6 BUN 4 L Creatinine 0.9 Est GFR (CKD-EPI 2020) 109.36 Glucose 80 Calcium 8.6 Phosphorus Magnesium Total Bilirubin 0.3 AST 17 ALT 14 L Alkaline Phosphatase 96 Total Protein 7.8 Albumin 3.4 Lipase 1145 H TSH 2.77 Urine Color Urine Clarity Urine pH Ur Specific Osprey Urine Protein Urine Ketones Urine Blood Urine Nitrite Urine Bilirubin Urine Urobilinogen Ur Leukocyte Esterase Urine Glucose Urine Opiates Screen Urine Methadone Screen Ur Barbiturates Screen Ur Tricyclics Screen Ur Amphetamines Screen U Benzodiazepines Scrn Urine Cocaine Screen Ur THC Screen Ethyl Alcohol COVID-19 Source SARS-CoV-2 (PCR) Patient ABO/Rh Antibody Screen 06/19/22 06/19/22 06/20/22 22:55 22:55 00:39 WBC RBC Hgb Hct MCV MCH MCHC RDW Plt Count MPV Immature Gran % Neutrophils % Lymphocytes % Monocytes % Eosinophils % Basophils % Nucleated RBC % Absolute Neutrophils Absolute Lymphocytes Absolute Monocytes Absolute Eosinophils Absolute Basophils PT INR Sodium Potassium Chloride Carbon Dioxide Anion Gap BUN Creatinine Est GFR (CKD-EPI 2020) Glucose Calcium Phosphorus Magnesium Total Bilirubin AST ALT Alkaline Phosphatase Total Protein Albumin Lipase TSH Urine Color Urine Clarity Urine pH Ur Specific Osprey Urine Protein Urine Ketones Urine Blood Urine Nitrite Urine Bilirubin Urine Urobilinogen Ur Leukocyte Esterase Urine Glucose Urine Opiates Screen Urine Methadone Screen Ur Barbiturates Screen Ur Tricyclics Screen Ur Amphetamines Screen U Benzodiazepines Scrn Urine Cocaine Screen Ur THC Screen Ethyl Alcohol 108.0 H COVID-19 Source Nasal/Nares SARS-CoV-2 (PCR) Negative Patient ABO/Rh O Positive Antibody Screen NEGATIVE 06/20/22 06/20/22 14:35 14:35 WBC Cancelled RBC Cancelled Hgb Cancelled Hct Cancelled MCV Cancelled MCH Cancelled MCHC Cancelled RDW Cancelled Plt Count Cancelled MPV Cancelled Immature Gran % Neutrophils % Lymphocytes % Monocytes % Eosinophils % Basophils % Nucleated RBC % Absolute Neutrophils Absolute Lymphocytes Absolute Monocytes Absolute Eosinophils Absolute Basophils PT INR Sodium 137 Potassium 5.3 H D Chloride 103 Carbon Dioxide 26.9 Anion Gap 7.1 BUN 5 L Creatinine 0.8 Est GFR (CKD-EPI 2020) 113.32 Glucose 113 H Calcium 8.8 Phosphorus 3.6 Magnesium 2.0 Total Bilirubin AST ALT Alkaline Phosphatase Total Protein Albumin Lipase TSH Urine Color Urine Clarity Urine pH Ur Specific Osprey Urine Protein Urine Ketones Urine Blood Urine Nitrite Urine Bilirubin Urine Urobilinogen Ur Leukocyte Esterase Urine Glucose Urine Opiates Screen Urine Methadone Screen Ur Barbiturates Screen Ur Tricyclics Screen Ur Amphetamines Screen U Benzodiazepines Scrn Urine Cocaine Screen Ur THC Screen Ethyl Alcohol COVID-19 Source SARS-CoV-2 (PCR) Patient ABO/Rh Antibody Screen PAWSS Have you Been Recently Intoxicated or Drunk Within the Last 30 days?: Yes Have you Ever Experienced Previous Episodes of Alcohol Withdrawal?: Yes Have you ever Experienced Withdrawal Seizures?: Yes Have you ever Experienced Delirium Tremens(DT)s?: Yes Have you ever undergone Alcohol Rehabilitation Treatment (i.e, inpt ot outpatient treatment programs)?: Yes Have you ever Experienced Blackouts?: Yes Have you ever Combined Alcohol with other Downers within the last 90 days?: Yes Have you ever Combined Alcohol with any other Substance of Abuse during the last 90 days?: Yes Positive Blood Alcohol level on Presentation? [PCS.BAL]: Yes Evidence of Increased Autonomic Activity (i.e. HR>120, tremor, sweating, agitation, nausea)?: No Result: 9
[2022-06-20 23:01] LABS: Triglyceride 145 mg/dL (<150)
[2022-06-21 02:55] VITALS: BP 137/73; PULSE 47; RESP 12; TEMP 36; O2SAT 97
[2022-06-21 07:40] VITALS: BP 163/87; PULSE 56; RESP 18; TEMP 34.5; O2SAT 99
[2022-06-21] MEDS: Methadone Liquid 10 MG/ML 80 MG PO (07:43)
[2022-06-21] MEDS: Thiamine 100 MG TAB PO (07:43)
[2022-06-21] MEDS: Omeprazole 20 MG CAPCR 40 MG PO (07:43)
[2022-06-21] MEDS: FLUoxetine 20 MG CAP 80 MG PO (07:43)
[2022-06-21] MEDS: buPROPion-XL 150 MG TABCR PO (07:43)
[2022-06-21] MEDS: Folic Acid 1 MG TAB PO (07:43)
[2022-06-21] MEDS: Multivitamin TAB 1 TAB PO (07:43)
[2022-06-21] MEDS: LORazepam 1 MG TAB PO/SL ×4 (07:48→21:12)
[2022-06-21 08:20] LABS: Abs Immature Grans 0.02 10^3/uL (0.0-0.06); Absolute Basophil Count 0.05 10^3/uL (0.0-0.2); Absolute Eosinophil Count 0.23 10^3/uL (0.0-0.7); Absolute Lymphocyte Count 2.74 10^3/uL (1.2-3.4); Absolute Monocyte Count 0.55 10^3/uL (0.1-0.8); Absolute Neutrophil Count 2.65 10^3/uL (1.2-6.7); Basophils % 0.8; Eosinophils % 3.7; HCT 40.4 % (40.0-50.0); HGB 12.8 g/dL (13.5-17.5); Immature Grans % 0.3; Lymphocytes % 43.9; MCH 27.5 pg (27.0-33.0); MCHC 31.7 % (32.0-36.0); MCV 87 fL (80-95); MPV 8.9 fL (8.0-11.0); Monocytes % 8.8; Neutrophils % 42.5; Platelet Count 271 10^3/uL (130-400); RBC 4.65 10^6/uL (4.36-5.78); RDW-SD 51.1 fL; WBC 6.24 10^3/uL (4.4-10.8)
[2022-06-21 08:35] LABS: Albumin 2.8 g/dL (3.4-5.0); Alkaline Phosphatase 94 U/L (46-116); Anion Gap 0.5 mmol/L (3-11); BUN 7 mg/dL (7-18); Bilirubin, Direct 0.1 mg/dL (0.0-0.2); Bilirubin, Total 0.3 mg/dL (0.2-1.0); C-Reactive Protein 0.44 mg/dL (0.0-0.3); CO2 30.5 mmol/L (21.0-32.0); CREATININE 0.9 mg/dL (0.70-1.30); Calcium 8.5 mg/dL (8.5-10.1); Chloride 101 mmol/L (98-107); Estimated GFR 109.36 (mL/min/1.73m2); Glucose 102 mg/dL (74-106); Magnesium 1.9 mg/dL (1.8-2.4); Potassium 3.4 mmol/L (3.5-5.1); Sodium 132 mmol/L (136-145); Total Protein 6.8 g/dL (6.4-8.2)
[2022-06-21 08:50] LABS: ALT 11 U/L (16-63); AST 13 U/L (15-37)
--- NOTE | 2022-06-21 10:04 | W.PM.PROGNOT ---
Date of Service Date of service: 06/21/22 Time of Service: 10:04 Assessment and Plan Assessment and plan (1) Suicidal ideation: Status: Resolved Assessment and plan: Assessed by mental health - plan for voluntary placement CPSO (2) Pancreatitis: Status: Chronic Assessment and plan: Tolerating regular diet Zofran prn for nausea - denies nausea, eating well, has not asked for zofran Denies abdominal pain Abdominal imaging ordered in ED : Rad report - Question of mild stranding around the head of the pancreas.? This may represent acute pancreatitis, No peripancreatic fluid collection is seen.? No free air is identified.?Question of circumferential thickening in the proximal transverse colon.? This may be due to underdistention, but mass cannot be excluded.? Further evaluation with barium enema or colonoscopy is recommended..Fluid-filled loops of small bowel and stomach which may represent a diarrheal state/Gastroenteritis.? (3) Depression: Status: Chronic Assessment and plan: Continue fluoxetine and bupropion - verified by pharmacy (4) Hypokalemia: Status: Acute Assessment and plan: Potassium 3.4 today - IV infiltrated, refused replacement - giving Potassium orally, will recheck tomorrow if he allows blood draw. (5) Opioid dependence on agonist therapy: Status: Acute Assessment and plan: On methadone - dose verified by pharmacy (6) Nicotine dependence: Status: Acute Assessment and plan: Nicotine replacement - inhaler (7) Alcohol dependence: Status: Chronic Assessment and plan: CIWA PO benzo protocol, scored 5 this am, and 9 this afternoon; calms with lorazepam. He does not ask for it. He has no sweating, no CP, no tachycardia - does have very slight bilateral hand tremors - will continue Thiamine 100mg daily Folic acid 1 mg daily Omeprazole 40 mg daily Ondansetron for nausea (8) Polysubstance abuse: Status: Acute Assessment and plan: as above (9) DVT prophylaxis: Status: Acute Assessment and plan: Enoxiparin 40 mg daily (10) Discharge planning issues: Status: Acute Assessment and plan: Mental health and Care mgt following. Plan to discharge to mental health facility when medically clear. Referrals to [facility] and [facility] [place] have been sent. Discussed with Dr Beyer Subjective Subjective Patient reports: no new complaints, tolerating a regular diet, voiding w/o difficulty and afebrile; denies diarrhea, nausea, vomiting or shortness of breath Interval history since last seen: William is eating well, sleeping the majority of the day, no complaints, not conversant, closes his eyes when I ask him questions and he shakes his head indicating yes or no. His IV infiltrated and he refused to have another one placed - changed IV potassium to oral. Exam Narrative Exam Narrative: William has been sleeping the majority of today. He has no complaints when awake. His CIWA has been zero's until this am when he scored a 5. This afternoon he scored a 9. He is still willing/wanting to go somewhere for treatment. He is not medically cleared at this time, will check CIWA overnight. Care mgt has referrals out to [facility] and [facility]. . Const General: cooperative and no acute distress Orientation: alert and oriented x3 Eyes Pupils: PERRL Resp Effort & Inspection: normal respiratory effort Auscultation: clear to auscultation bilaterally Cardio Rate: regular rate Rhythm: regular rhythm GI Other: Mild diffuse tenderness without rebound or guarding Skin General skin exam: no rashes or lesions noted Neuro General: patient alert and patient oriented x3 Cranial Nerves: CN's II-XI intact bilaterally and tongue midline Cognition: normal cognition Speech: speech normal Gait: normal gait Extrem General: normal to inspection Psych Appearance: disheveled Mental Status: mental status grossly normal Speech and Movement: speech and movement normal Mood: labile mood Affect: sad Thought Content: suicidality Objective Last Vital Signs Temp 34.5 C L 06/21/22 07:40 Pulse 56 L 06/21/22 07:40 Resp 18 06/21/22 07:40 BP 163/87 H 06/21/22 07:40 Pulse Ox 99 06/21/22 07:40 Laboratory Results - last 24 hr 06/20/22 06/20/22 06/20/22 14:35 14:35 14:35 WBC Cancelled RBC Cancelled Hgb Cancelled Hct Cancelled MCV Cancelled MCH Cancelled MCHC Cancelled RDW Cancelled Plt Count Cancelled MPV Cancelled Immature Gran % Neutrophils % Lymphocytes % Monocytes % Eosinophils % Basophils % Nucleated RBC % Absolute Neutrophils Absolute Lymphocytes Absolute Monocytes Absolute Eosinophils Absolute Basophils Sodium 137 Potassium 5.3 H D Chloride 103 Carbon Dioxide 26.9 Anion Gap 7.1 BUN 5 L Creatinine 0.8 Est GFR (CKD-EPI 2021) 113.32 Glucose 113 H Calcium 8.8 Phosphorus 3.6 Magnesium 2.0 Total Bilirubin Conjugated Bilirubin AST ALT Alkaline Phosphatase C-Reactive Protein Total Protein Albumin Triglycerides 145 06/20/22 06/21/22 06/21/22 19:50 08:08 08:08 WBC Cancelled 6.24 RBC Cancelled 4.65 Hgb Cancelled 12.8 L Hct Cancelled 40.4 MCV Cancelled 87 MCH Cancelled 27.5 MCHC Cancelled 31.7 L RDW Cancelled 16.0 H Plt Count Cancelled 271 MPV Cancelled 8.9 Immature Gran % 0.3 Neutrophils % 42.5 Lymphocytes % 43.9 Monocytes % 8.8 Eosinophils % 3.7 Basophils % 0.8 Nucleated RBC % 0.0 Absolute Neutrophils 2.65 Absolute Lymphocytes 2.74 Absolute Monocytes 0.55 Absolute Eosinophils 0.23 Absolute Basophils 0.05 Sodium 132 L Potassium 3.4 L D Chloride 101 Carbon Dioxide 30.5 Anion Gap 0.5 L BUN 7 Creatinine 0.9 Est GFR (CKD-EPI 2020) 109.36 Glucose 102 Calcium 8.5 Phosphorus Magnesium 1.9 Total Bilirubin 0.3 Conjugated Bilirubin 0.1 AST 13 L ALT 11 L Alkaline Phosphatase 94 C-Reactive Protein 0.44 H Total Protein 6.8 Albumin 2.8 L Triglycerides PAWSS Have you Been Recently Intoxicated or Drunk Within the Last 30 days?: Yes Have you Ever Experienced Previous Episodes of Alcohol Withdrawal?: Yes Have you ever Experienced Withdrawal Seizures?: Yes Have you ever Experienced Delirium Tremens(DT)s?: Yes Have you ever undergone Alcohol Rehabilitation Treatment (i.e, inpt ot outpatient treatment programs)?: Yes Have you ever Experienced Blackouts?: Yes Have you ever Combined Alcohol with other Downers within the last 90 days?: Yes Have you ever Combined Alcohol with any other Substance of Abuse during the last 90 days?: Yes Positive Blood Alcohol level on Presentation? [PCS.BAL]: Yes Evidence of Increased Autonomic Activity (i.e. HR>120, tremor, sweating, agitation, nausea)?: No Result: 9
--- NOTE | 2022-06-21 10:30 | PDOC.CMSAFED ---
- If Service Date Differs Date of service: 06/21/22 Time of Service: 10:30 Care Management Safety Plan Status: Voluntary - Reason for Wait Reason for Wait: Inpatient Admission VOLUNTARY FOR INPATIENT PSYCHIATRIC STABILIZATION. Patient is appropriate in all interactions since arriving at [facility]; Pt has demonstrated appropriate coping and communication skills, has articulated his or her needs and concerns and is fully engaged during staff interactions. Safety plan has been established with patient, and care team, to adhere to patient goals, identify restrictions based on behavioral status, address nutrition, and determine allowed personal belongings, tools for hygiene and personal care. Determine level of activity including ambulation, level of supervision, visitors, and determine privileges based on behaviors and level of engagement by pt. SAFETY PLAN: 1. Will remain on suicide precautions. In Paper Clothes. 2. Will remain in room under direct supervision of one-on-one staff at all times provided by CPSO, LENS POLISHER, IRRIGATION EQUIPMENT MECHANIC identification and records commander. 3. May have paper cups, plates, finger foods as well as a cardboard spoon with which to eat meals. 4. Follow [facility] Management of the Admitted Behavioral Health Patient policy. 5. Shower permitted with escort at RN discretion. 6. No personal belongings. 7. No visitors at this time. 8. Activities: soft cart items, music tablet, television, and other activities at RN discretion. 9. Bathroom privileges with escort in the ED, available in room without limitation on M/S. 10. Phone: may use [employer] phone at RN discretion. 11. Due to VOLUNTARY status, if patient wishes to leave [facility], staff will contact [facility] Crisis Screener ([phone]) and On-Call Machine Operator Assistant ([phone]) as soon as possible. In the event of elopement, notify [facility] Police ([phone]). Patient is currently voluntarily at [facility] and seeking inpatient admission when a bed becomes available. [facility] Frontline Head Start Assistant Teacher will continue seeking placement. Please contact the Software Product Specialist Machine Operator Assistant ([phone]) and [facility] Head Start Assistant Teacher ([phone]) for any needed changes in the Safety Plan. Safety plan has been provided to interdepartmental care team.
[2022-06-21] MEDS: Potassium Chloride 10 MEQ CAPCR 40 MEQ PO (10:33)
--- NOTE | 2022-06-21 10:42 | CMPROGNOTE_ITS ---
- If Service Date Differs Date of service: 06/21/22 Time of Service: 10:42 Care Management Progress Note S/O: William is being closely monitored and treated. He has a 1:1 CPSO, and is lying in bed and appears calm and relaxed. He is on CIWA per protocol. CM contacted Meron at [facility] and William will be screened today. Meron advises that she will follow up on the status of inpatient Psych referral's from yesterday. Daniele Angeline from [facility] met with William today. Plan is to continue to seek placement for inpatient psych. [facility] are reviewing. A: 41 year old male admitted to [facility] for Polysubstance abuse, Depression, Pancreatitis, Suicidal ideation P: William is on SI precautions with a 1:1 CPSO, safety plan and is being followed by [facility] crisis clinicians. William is waiting for voluntary placement to a psychiatric facility for SI, once medically cleared. Per Meron at [facility] referrals have been sent to [facility], [facility] and [facility]. Transportation will be determined by disposition. CM will continue to follow and support discharge planning concerns. 06/21/22 Referral Status [facility]: Reviewing [facility]:Reviewing, no beds [facility]: No beds [place]: No beds
[2022-06-21 11:19] VITALS: BP 151/84; PULSE 54; RESP 16; TEMP 34.8; O2SAT 98
--- NOTE | 2022-06-21 12:38 | PDOC.CMSAFE ---
- If Service Date Differs Date of service: 06/21/22 Time of Service: 12:38 Care Management Safety Plan Status: Voluntary - Reason for Wait Reason for Wait: Inpatient Admission VOLUNTARY FOR INPATIENT PSYCHIATRIC STABILIZATION. Patient is appropriate in all interactions since arriving at [facility]; Pt has demonstrated appropriate coping and communication skills, has articulated his or her needs and concerns and is fully engaged during staff interactions. William was assessed by [facility] Crisis screener today. Plan is for William to remain inpatient while waiting for placement at appropriate inpatient psych facility. [facility] are reviewing. Safety plan has been established with patient, and care team, to adhere to patient goals, identify restrictions based on behavioral status, address nutrition, and determine allowed personal belongings, tools for hygiene and personal care. Determine level of activity including ambulation, level of supervision, visitors, and determine privileges based on behaviors and level of engagement by pt. SAFETY PLAN: 1. Will remain on suicide precautions. In Paper Clothes. 2. Will remain in room under direct supervision of one-on-one staff at all times provided by CPSO, RADHA, SYSTEMS INTEGRATION ADVISOR city dispatch supervisor. 3. May have paper cups, plates, finger foods as well as a cardboard spoon with which to eat meals. 4. Follow [facility] Management of the Admitted Behavioral Health Patient policy. 5. Shower permitted with escort at RN discretion. 6. No personal belongings. 7. No visitors at this time. 8. Activities: soft cart items, music tablet, television, and other activities at RN discretion. 9. Bathroom privileges with escort in the ED, available in room without limitation on M/S. 10. Phone: may use [employer] phone at RN discretion. 11. Due to VOLUNTARY status, if patient wishes to leave [facility], staff will contact [facility] Crisis Screener ([phone]) and On-Call Crisis Intervention Specialist ([phone]) as soon as possible. In the event of elopement, notify [place] [employer] Police ([phone]). Patient is currently voluntarily at [facility] and seeking inpatient admission when a bed becomes available. [facility] Frontline Health Safety And Environment Manager will continue seeking placement. Please contact the [facility] Crisis Intervention Specialist ([phone]) and [facility] Health Safety And Environment Manager ([phone]) for any needed changes in the Safety Plan. Safety plan has been provided to interdepartmental care team.
[2022-06-21 15:03] VITALS: BP 151/86; PULSE 54; RESP 12; TEMP 34.5; O2SAT 96
--- NOTE | 2022-06-21 16:04 | MHPN_ITS ---
Date of service: 06/21/22 Time of Service: 16:05 PHQ-9 Over the last 2 weeks, how often have you been bothered by any of the following problems? 1. Little interest or pleasure in doing things: nearly every day 2. Feeling down, depressed, or hopeless: nearly every day 3. Trouble falling or staying asleep, or sleeping too much: nearly every day 4. Feeling tired or having little energy: nearly every day 5. Poor appetite or overeating: nearly every day 6. Feeling bad about yourself - or that you are a failure or have let yourself and your family down: nearly every day 7. Trouble concentrating on things, such as reading the newspaper or watching television: nearly every day 8. Moving or speaking so slowly that other people could have noticed? - Or the opposite - being so fidgety or restless that you have been moving around a lot more than usual: more than half the days 9. Thoughts that you would be better off or of hurting yourself in some way: more than half the days Total score: 25 If you checked off any problems, how difficult have these problems made it for you to do your work, take care of things at home, or get along with other people?: very difficult Source: Developed by Drs. Earl Reyes, Colette Lucero, Galen Cadet and colleagues, with an educational von from [employer]. Suicide Severity Rate CSSRS Have you wished you were or wished you could go to sleep and not wake up?: Yes Have you actually had any thoughts of killing yourself?: Yes CSSRS2 Have you been thinking about how you might do this?: Yes Have you had these thoughts and had some intention of acting on them?: Yes Have you started to work out or worked out the details of how to kill yourself? Do you intend to carry out this plan?: No CSSRS3 Have you ever done anything, started to do anything or prepared to do anything to end your life?: No Screening Score Total Score: 4 Screening: Positive Mental Health Emergency Note Release HS release signed:: No Reason for Visit Client presented to the ED on 06.19.2022 for SI, as well as help for his ETOH and drug addiction. He has had numerous hospitalizations at [facility] and is stabilized and returned back to his community however, does not or is unable to follow through with after care treatments to help him remain stable per care mangers at [facility]. In the last 2 weeks has the pt presented for ES prior to today?: Unknown Client Information Client is: Adult Outpatient Well Housed: No,status: Homeless Non Suicidal Self Injury Current: No History: No Safety Risk/Harm to Self or Others Current Ideation to Harm Self or Others: Yes to self. Intent: no, has no intent. Plan: no.does not have a plan. Risk: Does risk to harm exist?: yes. Access to means: Yes. Types of Means: Medication (street drugs). Details: street drugs . Counseling provided: Yes Risk: High Risk Duty to warn indicated: No Asssessment/Mental Status Appearance: Disheveled Attitude: Cooperative Behavior: Repetitive movements Speech: Soft Affect: Flat Mood: Stressed and Depressed Thought process: Goal directed Hallucinations: No Delusions: No Attention: Unremarkable Perception: Not impaired Orientation: Fully orientated Memory: Intact Insight: Fair Judgement: Fair Neurovegetative Symptoms Sleep: Increase Appetitie: Increase Interests: Decrease Energy: Decrease Libido: Not applicable Substance Use: ETOH dependence Drug Issues: Dependence Do you use nicotine?: Yes Have you used substances in the last 7 days?: yes, ETOH and heroin as much as he can Additional Issues: Assaultive/Threatening Behavior: No Medical Concerns: No Client engaged in active self harm w/weapon: No Threatening to run away: No Child reported abuse/neglect: No Voluntarily presenting for services: Yes Impression Client is struggling to maintain sobriety when he is discharged from a d etox/mental health facility. He also struggles to keep promised appointments for follow up after discharge and therefore runs out of medications and ends up back in the ED seeking treatment again. Plan/Disposition Recommended Disposition: Hospitalization (all facilityes called no beds) facilities contacted. Plan: Client declined that he could improve in a lesser restrictive environment. Client is still being referred for inpatient treatment at this time. He will be assessed daily by [facility] and referrals updated as needed. Client would benefit with a case management referral and this will be discussed with him on 06.22.2022 for interest. Person reported agreement to plan: Yes Facilities contacted if Applicable [facility] Not accepted, (reviewing referral) No bed available [facility] Not accepted, No bed available [facility] Not accepted, Only accepting in house referrals, [facility] Not accepted, (reviewing referrals ) Other Reports/communication Outcome discussed with: ED/Personnel
[2022-06-21 19:15] VITALS: BP 148/87; PULSE 54; RESP 14; TEMP 36.7; O2SAT 97
[2022-06-21 22:54] VITALS: BP 166/96; PULSE 59; RESP 15; TEMP 36.3; O2SAT 98
[2022-06-22] MEDS: LORazepam 1 MG TAB PO/SL ×4 (01:56→20:31)
[2022-06-22 02:44] VITALS: BP 145/82; PULSE 53; RESP 16; TEMP 37.1; O2SAT 95
[2022-06-22 07:23] LABS: Abs Immature Grans 0.03 10^3/uL (0.0-0.06); Absolute Basophil Count 0.04 10^3/uL (0.0-0.2); Absolute Eosinophil Count 0.24 10^3/uL (0.0-0.7); Absolute Lymphocyte Count 2.88 10^3/uL (1.2-3.4); Absolute Monocyte Count 0.55 10^3/uL (0.1-0.8); Absolute Neutrophil Count 3.35 10^3/uL (1.2-6.7); Basophils % 0.6; Eosinophils % 3.4; HCT 42.2 % (40.0-50.0); HGB 13.3 g/dL (13.5-17.5); Immature Grans % 0.4; Lymphocytes % 40.6; MCH 27.3 pg (27.0-33.0); MCHC 31.5 % (32.0-36.0); MCV 87 fL (80-95); MPV 9.1 fL (8.0-11.0); Monocytes % 7.8; Neutrophils % 47.2; Platelet Count 296 10^3/uL (130-400); RBC 4.88 10^6/uL (4.36-5.78); RDW 15.9 % (11.8-14.1); RDW-SD 50.6 fL; WBC 7.09 10^3/uL (4.4-10.8)
[2022-06-22 07:26] VITALS: BP 129/72; PULSE 60; RESP 16; TEMP 36.7; O2SAT 97
[2022-06-22 07:36] LABS: Anion Gap 5.3 mmol/L (3-11); BUN 11 mg/dL (7-18); CO2 29.7 mmol/L (21.0-32.0); CREATININE 0.9 mg/dL (0.70-1.30); Calcium 8.8 mg/dL (8.5-10.1); Chloride 100 mmol/L (98-107); Estimated GFR 109.36 (mL/min/1.73m2); Glucose 102 mg/dL (74-106); Magnesium 1.9 mg/dL (1.8-2.4); Potassium 3.9 mmol/L (3.5-5.1); Sodium 135 mmol/L (136-145)
[2022-06-22] MEDS: buPROPion-XL 150 MG TABCR PO (08:11)
[2022-06-22] MEDS: Multivitamin TAB 1 TAB PO (08:11)
[2022-06-22] MEDS: Methadone Liquid 10 MG/ML 80 MG PO (08:11)
[2022-06-22] MEDS: Thiamine 100 MG TAB PO (08:11)
[2022-06-22] MEDS: Folic Acid 1 MG TAB PO (08:11)
[2022-06-22] MEDS: FLUoxetine 20 MG CAP 80 MG PO (08:11)
[2022-06-22] MEDS: Omeprazole 20 MG CAPCR 40 MG PO (08:11)
[2022-06-22 11:53] VITALS: BP 143/89; PULSE 65; RESP 18; TEMP 36.9; O2SAT 96
--- NOTE | 2022-06-22 12:06 | PDOC.MHPN2 ---
Date of service: 06/22/22 Time of Service: 12:06 PHQ-9 Over the last 2 weeks, how often have you been bothered by any of the following problems? 1. Little interest or pleasure in doing things: nearly every day 2. Feeling down, depressed, or hopeless: nearly every day 3. Trouble falling or staying asleep, or sleeping too much: nearly every day 4. Feeling tired or having little energy: nearly every day 5. Poor appetite or overeating: nearly every day 6. Feeling bad about yourself - or that you are a failure or have let yourself and your family down: nearly every day 7. Trouble concentrating on things, such as reading the newspaper or watching television: nearly every day 8. Moving or speaking so slowly that other people could have noticed? - Or the opposite - being so fidgety or restless that you have been moving around a lot more than usual: more than half the days 9. Thoughts that you would be better off or of hurting yourself in some way: more than half the days Total score: 25 If you checked off any problems, how difficult have these problems made it for you to do your work, take care of things at home, or get along with other people?: very difficult Source: Developed by Drs. Earl Reyes, Colette Lucero, Galen Cadet and colleagues, with an educational von from [employer]. Suicide Severity Rate CSSRS Have you wished you were or wished you could go to sleep and not wake up?: Yes Have you actually had any thoughts of killing yourself?: Yes CSSRS2 Have you been thinking about how you might do this?: Yes Have you had these thoughts and had some intention of acting on them?: Yes Have you started to work out or worked out the details of how to kill yourself? Do you intend to carry out this plan?: No CSSRS3 Have you ever done anything, started to do anything or prepared to do anything to end your life?: No Screening Score Total Score: 4 Screening: Positive Mental Health Emergency Note Release HS release signed:: No Reason for Visit Client presented to the ED on 06.19.2022 for SI, as well as help for his ETOH and drug addiction. He has had numerous hospitalizations at [facility] and is stabilized and returned back to his community however, does not or is unable to follow through with after care treatments to help him remain stable per care mangers at [facility]. In the last 2 weeks has the pt presented for ES prior to today?: Unknown Client Information Client is: Adult Outpatient Well Housed: No,status: Homeless Unstable housing Non Suicidal Self Injury Current: No History: No Safety Risk/Harm to Self or Others Current Ideation to Harm Self or Others: Yes to self. (Self-reported risk level a 5/10. ) Intent: yes, has intent. Plan: yes,has a plan. History of suicide attempt: No history of suicide attempt reported Risk: Does risk to harm exist?: yes. Access to means: Yes. Types of Means: Other (street drugs). Counseling provided: Yes Risk: High Risk Duty to warn indicated: No Asssessment/Mental Status Appearance: Disheveled Attitude: Cooperative Behavior: Repetitive movements Speech: Soft Affect: Flat Mood: Stressed and Depressed Thought process: Goal directed Hallucinations: No Delusions: No Attention: Unremarkable Perception: Not impaired Orientation: Fully orientated Memory: Intact Insight: Fair Judgement: Fair Neurovegetative Symptoms Sleep: Decrease Appetitie: No change Interests: Decrease Energy: Decrease Libido: Not applicable Substance Use: ETOH dependence Drug Issues: Dependence Do you use nicotine?: Yes Have you used substances in the last 7 days?: yes, ETOH and heroin as much as I can get. Additional Issues: Assaultive/Threatening Behavior: No Medical Concerns: No Client engaged in active self harm w/weapon: No Threatening to run away: No Child reported abuse/neglect: No Voluntarily presenting for services: Yes Domestic violence is a concern: No Extreme Psychosis or extreme behavior is present: No Impression Client continues to endorse SI with intent and plan. He continues to decline lesser restrictive means to treat his symptoms. He presents as continuing to struggle with his substance abuse issues I feel like I am detoxing and my body hurts and because of this it has affected his mental health. Client was approached about his history of not following through with follow up appointments when discharged and he could not identify why he has not done this. This clinician offered him case management that could assist him in breaking down those barriers as well as, helping him navigate his goal to get on disability. Client was open to this. Resources Reosurces reviewed and given:: [facility] Plan/Disposition Recommended Disposition: [facility] Services [facility] Services: Other and Hospitalization facilities contacted. Plan: This clinician will put in a referral for case management to attempt to assist the client in maintaining stability upon discharge from the hospital. He will continue to be assessed daily until placement is found. Person reported agreement to plan: Yes Facilities contacted if Applicable [facility] Not accepted, No bed available [facility] Not accepted, Only accepting in house referrals [facility] Not accepted, Only accepting in house referrals, [facility] Not accepted, Other (Reviewing chart and will call Med Surg to get details of any medical issues to ensure they would be the correct fit for the cleint. If so they will call this clinician back. ) Reports/communication Outcome discussed with: ED/Personnel
--- NOTE | 2022-06-22 12:41 | PDOC.CMSAFE ---
- If Service Date Differs Date of service: 06/22/22 Time of Service: 12:41 Care Management Safety Plan Status: Voluntary - Reason for Wait Reason for Wait: Inpatient Admission VOLUNTARY FOR INPATIENT PSYCHIATRIC STABILIZATION. Patient is appropriate in all interactions since arriving at [facility]; Pt has demonstrated appropriate coping and communication skills, has articulated his or her needs and concerns and is fully engaged during staff interactions. William was assessed by [facility] Crisis screener Angeline Calhoun today. Plan is for William to remain inpatient while waiting for placement at appropriate inpatient psych facility. [facility] is reviewing and contacted Med-Surg for update. Possible bed tomorrow.. Safety plan has been established with patient, and care team, to adhere to patient goals, identify restrictions based on behavioral status, address nutrition, and determine allowed personal belongings, tools for hygiene and personal care. Determine level of activity including ambulation, level of supervision, visitors, and determine privileges based on behaviors and level of engagement by pt. SAFETY PLAN: 1. Will remain on suicide precautions. In Paper Clothes. 2. Will remain in room under direct supervision of one-on-one staff at all times provided by CPSO, SOLVENT MIXER, RESISTANCE BRAZER skid machine operator. 3. May have paper cups, plates, finger foods as well as a cardboard spoon with which to eat meals. 4. Follow [facility] Management of the Admitted Behavioral Health Patient policy. 5. Shower permitted with escort at RN discretion. 6. No personal belongings. 7. No visitors at this time. 8. Activities: soft cart items, music tablet, television, and other activities at RN discretion. 9. Bathroom privileges in room without limitation. 10. Phone: may use [employer] phone at RN discretion. 11. Due to VOLUNTARY status, if patient wishes to leave [facility], staff will contact [facility] Crisis Screener ([phone]) and On-Call Critical Care Paramedic ([phone]) as soon as possible. In the event of elopement, notify [place] Police ([phone]). Patient is currently voluntarily at [facility] and seeking inpatient admission when a bed becomes available. [facility] Frontline Cassandra Architect will continue seeking placement. Please contact the Supervisor Machining Critical Care Paramedic ([phone]) and [facility] Cassandra Architect ([phone]) for any needed changes in the Safety Plan. Safety plan has been provided to interdepartmental care team.
--- NOTE | 2022-06-22 13:53 | W.PM.PROGNOT ---
Date of Service Date of service: 06/22/22 Time of Service: 13:53 Assessment and Plan Assessment and plan (1) Suicidal ideation: Status: Resolved Assessment and plan: Assessed by mental health - plan for voluntary placement [facility] (2) Pancreatitis: Status: Chronic Assessment and plan: Tolerating regular diet Zofran prn for nausea - denies nausea, eating well, has not asked for zofran Denies abdominal pain Abdominal imaging ordered in ED : Rad report - Question of mild stranding around the head of the pancreas.? This may represent acute pancreatitis, No peripancreatic fluid collection is seen.? No free air is identified.?Question of circumferential thickening in the proximal transverse colon.? This may be due to underdistention, but mass cannot be excluded.? Further evaluation with barium enema or colonoscopy is recommended..Fluid-filled loops of small bowel and stomach which may represent a diarrheal state/Gastroenteritis.? (3) Depression: Status: Chronic Assessment and plan: Continue fluoxetine and bupropion - verified by pharmacy (4) Hypokalemia: Status: Acute Assessment and plan: Potassium 3.9 today - no further recommendations (5) Opioid dependence on agonist therapy: Status: Acute Assessment and plan: On methadone - dose verified by pharmacy (6) Nicotine dependence: Status: Acute Assessment and plan: Nicotine replacement - inhaler (7) Alcohol dependence: Status: Chronic Assessment and plan: CIWA PO benzo protocol, scored 6 this am, calms with lorazepam. He has no sweating, no CP, no tachycardia, no tremors - will continue for now, hopefully can clear tomorrow. Thiamine 100mg daily Folic acid 1 mg daily Omeprazole 40 mg daily Ondansetron for nausea (8) Polysubstance abuse: Status: Acute Assessment and plan: as above (9) DVT prophylaxis: Status: Acute Assessment and plan: Enoxiparin 40 mg daily (10) Discharge planning issues: Status: Acute Assessment and plan: Mental health and Care mgt following. Plan to discharge to mental health facility when medically clear. Referrals to [facility] and [facility] have been sent. Discussed with Dr Purcell Subjective Subjective Patient reports: no new complaints, feels better, tolerating liquids well, voiding w/o difficulty and afebrile; denies nausea or shortness of breath Exam Const General: cooperative, comfortable, no acute distress and ill appearing chronically Nutritional Appearance: average body habitus Orientation: alert, awake and oriented x3 HENOK Head: normal to inspection, normocephalic and atraumatic Mouth: oral mucosae normal Chest Chest: normal inspection of the chest Resp Effort & Inspection: normal respiratory effort Auscultation: diminished lung sounds (bases with fine rales ) and no wheezes Cardio Rate: regular rate Rhythm: regular rhythm GI Inspection: normal to inspection and non-distended Palpation: soft, no guarding, no masses and nontender Skin General skin exam: no rashes or lesions noted Neuro General: patient alert, patient awake, patient oriented x3 and no focal motor deficits Cognition: normal cognition Motor: muscle tone normal throughout Extrem General: normal to inspection and no pedal edema Psych Appearance: grossly normal Mental Status: mental status grossly normal Speech and Movement: speech and movement normal Affect: blunted Insight: poor Judgment: poor Objective Last Vital Signs Temp 36.9 C 06/22/22 11:53 Pulse 65 06/22/22 11:53 Resp 18 06/22/22 11:53 BP 143/89 H 06/22/22 11:53 Pulse Ox 96 06/22/22 11:53 Laboratory Results - last 24 hr 06/22/22 06/22/22 06:15 06:15 WBC 7.09 RBC 4.88 Hgb 13.3 L Hct 42.2 MCV 87 MCH 27.3 MCHC 31.5 L RDW 15.9 H Plt Count 296 MPV 9.1 Immature Gran % 0.4 Neutrophils % 47.2 Lymphocytes % 40.6 Monocytes % 7.8 Eosinophils % 3.4 Basophils % 0.6 Nucleated RBC % 0.0 Absolute Neutrophils 3.35 Absolute Lymphocytes 2.88 Absolute Monocytes 0.55 Absolute Eosinophils 0.24 Absolute Basophils 0.04 Sodium 135 L Potassium 3.9 Chloride 100 Carbon Dioxide 29.7 Anion Gap 5.3 BUN 11 Creatinine 0.9 Est GFR (CKD-EPI 2020) 109.36 Glucose 102 Calcium 8.8 Magnesium 1.9 PAWSS Have you Been Recently Intoxicated or Drunk Within the Last 30 days?: Yes Have you Ever Experienced Previous Episodes of Alcohol Withdrawal?: Yes Have you ever Experienced Withdrawal Seizures?: Yes Have you ever Experienced Delirium Tremens(DT)s?: Yes Have you ever undergone Alcohol Rehabilitation Treatment (i.e, inpt ot outpatient treatment programs)?: Yes Have you ever Experienced Blackouts?: Yes Have you ever Combined Alcohol with other Downers within the last 90 days?: Yes Have you ever Combined Alcohol with any other Substance of Abuse during the last 90 days?: Yes Positive Blood Alcohol level on Presentation? [PCS.BAL]: Yes Evidence of Increased Autonomic Activity (i.e. HR>120, tremor, sweating, agitation, nausea)?: No Result: 9
[2022-06-22 15:14] VITALS: BP 132/81; PULSE 60; RESP 16; TEMP 36.6; O2SAT 96
[2022-06-22 20:13] VITALS: BP 153/94; PULSE 58; RESP 16; TEMP 36.5; O2SAT 98
[2022-06-22] MEDS: hydrOXYzine HCL 25 MG TAB 50 MG PO (20:31)
[2022-06-23 00:56] VITALS: BP 134/88; PULSE 69; RESP 16; TEMP 37; O2SAT 98
[2022-06-23] MEDS: LORazepam 1 MG TAB PO/SL ×3 (04:11→12:38)
[2022-06-23] MEDS: hydrOXYzine HCL 25 MG TAB 50 MG PO (04:11)
[2022-06-23 05:51] VITALS: BP 148/85; PULSE 71; RESP 16; TEMP 36.3; O2SAT 97
[2022-06-23] MEDS: Thiamine 100 MG TAB PO (08:06)
[2022-06-23] MEDS: FLUoxetine 20 MG CAP 80 MG PO (08:06)
[2022-06-23] MEDS: Multivitamin TAB 1 TAB PO (08:06)
[2022-06-23] MEDS: Folic Acid 1 MG TAB PO (08:06)
[2022-06-23] MEDS: buPROPion-XL 150 MG TABCR PO (08:06)
[2022-06-23] MEDS: Omeprazole 20 MG CAPCR 40 MG PO (08:07)
[2022-06-23] MEDS: Methadone Liquid 10 MG/ML 80 MG PO (08:07)
--- NOTE | 2022-06-23 09:21 | CMSP_ITS ---
- If Service Date Differs Date of service: 06/23/22 Time of Service: 09:21 Care Management Safety Plan Status: Voluntary - Reason for Wait Reason for Wait: Inpatient Admission VOLUNTARY FOR INPATIENT PSYCHIATRIC STABILIZATION. Patient is appropriate in all interactions since arriving at [facility]; Pt has demonstrated appropriate coping and communication skills, has articulated his or her needs and concerns and is fully engaged during staff interactions. William was assessed by [facility] Crisis screener Angeline Calhoun today. Plan is for William to remain inpatient while waiting for placement at appropriate inpatient psych facility. [facility] is reviewing and contacted Med-Surg for update. Possible bed tomorrow.. Safety plan has been established with patient, and care team, to adhere to patient goals, identify restrictions based on behavioral status, address nutrition, and determine allowed personal belongings, tools for hygiene and personal care. Determine level of activity including ambulation, level of supervision, visitors, and determine privileges based on behaviors and level of engagement by pt. SAFETY PLAN: 1. Will remain on suicide precautions. In Paper Clothes. 2. Will remain in room under direct supervision of one-on-one staff at all times provided by CPSO, MUCK OPERATOR, VALIDATION INTERN semiconductor packages leak tester. 3. May have paper cups, plates, finger foods as well as a cardboard spoon with which to eat meals. 4. Follow [facility] Management of the Admitted Behavioral Health Patient policy. 5. Shower permitted with escort at RN discretion. 6. No personal belongings. 7. No visitors at this time. 8. Activities: soft cart items, music tablet, television, and other activities at RN discretion. 9. Bathroom privileges in room without limitation. 10. Phone: may use [employer] phone at RN discretion. 11. Due to VOLUNTARY status, if patient wishes to leave [facility], staff will contact [facility] Crisis Screener ([phone]) and On-Call Project Accountant ([phone]) as soon as possible. In the event of elopement, notify [place] [employer] Police ([phone]). Patient is currently voluntarily at [facility] and seeking inpatient admission when a bed becomes available. [facility] Frontline Color Receiver will continue seeking placement. Please contact the Stock Grader Project Accountant ([phone]) and [facility] Color Receiver ([phone]) for any needed changes in the Safety Plan. Safety plan has been provided to interdepartmental care team.
--- NOTE | 2022-06-23 09:22 | PDOC.CMPRO ---
- If Service Date Differs Date of service: 06/23/22 Time of Service: 09:23 Care Management Progress Note S/O: William is being closely monitored and treated. He has a 1:1 CPSO, and is lying in bed and appears calm and relaxed. He is on CIWA per protocol. He has been scoring between 0 and 9. He was seen by [facility] crisis screener today. Plan is still for William to seek voluntary placement for SI. A: 41 year old male admitted to [facility] for Polysubstance abuse, Depression, Pancreatitis, Suicidal ideation P: William is on SI precautions with a 1:1 CPSO, safety plan and is being followed by [facility] crisis clinicians. William is waiting for voluntary placement to a psychiatric facility for SI, once medically cleared. Referrals have been sent to [facility], [place] and [facility] Transportation will be determined by disposition. CM will continue to follow and support discharge planning concerns. 06/23/22 Referral Status [facility]: Reviewing [place]:Reviewing, no beds [facility] No beds [place]: No beds
--- NOTE | 2022-06-23 10:04 | PGE_ITS ---
Date of Service Date of service: 06/23/22 Time of Service: 10:04 Assessment and Plan Assessment and plan (1) Suicidal ideation: Status: Resolved Assessment and plan: Assessed by mental health - plan for voluntary placement CPSO (2) Pancreatitis: Status: Chronic Assessment and plan: Tolerating regular diet Zofran prn for nausea - denies nausea, eating well, has not asked for zofran Denies abdominal pain He did c/o bilateral lower abd gas - he told me this while drinking chocolate milk and eating cookies. He does report a normal BM today - GI cocktail and simethicone given. Abdominal imaging ordered in ED : Rad report - Question of mild stranding around the head of the pancreas.? This may represent acute pancreatitis, No peripancreatic fluid collection is seen.? No free air is identified.?Question of circumferential thickening in the proximal transverse colon.? This may be due to underdistention, but mass cannot be excluded.? Further evaluation with barium enema or colonoscopy is recommended..Fluid-filled loops of small bowel and stomach which may represent a diarrheal state/Gastroenteritis.? (3) Depression: Status: Chronic Assessment and plan: Continue fluoxetine and bupropion - verified by pharmacy (4) Hypokalemia: Status: Resolved Assessment and plan: Potassium 3.9 - no further recommendations (5) Opioid dependence on agonist therapy: Status: Acute Assessment and plan: On methadone - dose verified by pharmacy (6) Nicotine dependence: Status: Acute Assessment and plan: Nicotine replacement - inhaler (7) Alcohol dependence: Status: Chronic Assessment and plan: CIWA cancelled - he has no sweating, no CP, no tachycardia, no tremors - medically cleared Thiamine 100mg daily Folic acid 1 mg daily Omeprazole 40 mg daily Ondansetron for nausea (8) Polysubstance abuse: Status: Acute Assessment and plan: as above (9) DVT prophylaxis: Status: Acute Assessment and plan: Enoxiparin 40 mg daily (10) Discharge planning issues: Status: Acute Assessment and plan: Mental health and Care mgt following. Plan to discharge to mental health ;he is medically cleared. Referrals to [place] and [facility] have been sent. Discussed with Dr Purcell Subjective Subjective Patient reports: feels better, tolerating a regular diet, voiding w/o difficulty, flatus, bowel movement and afebrile; denies diarrhea, nausea, vomiting or shortness of breath Interval history since last seen: C/O bilateral lower abdominal gas - no other complaints. He is eating and drinking without issue. Exam Const General: cooperative, comfortable, no acute distress and ill appearing chronically Nutritional Appearance: average body habitus Orientation: alert, awake and oriented x3 [facility] Head: normal to inspection, normocephalic and atraumatic Mouth: oral mucosae normal Chest Chest: normal inspection of the chest Resp Effort & Inspection: normal respiratory effort Auscultation: no wheezes Cardio Rate: regular rate Rhythm: regular rhythm GI Inspection: normal to inspection and non-distended Palpation: soft, no guarding, no masses and nontender Skin General skin exam: no rashes or lesions noted Neuro General: patient alert, patient awake, patient oriented x3 and no focal motor deficits Cognition: normal cognition Motor: muscle tone normal throughout Extrem General: normal to inspection and no pedal edema Psych Appearance: grossly normal Mental Status: mental status grossly normal Speech and Movement: speech and movement normal Affect: blunted Insight: poor Judgment: poor Objective Last Vital Signs Temp 36.3 C L 06/23/22 05:51 Pulse 71 06/23/22 05:51 Resp 16 06/23/22 05:51 BP 148/85 H 06/23/22 05:51 Pulse Ox 97 06/23/22 05:51 PAWSS Have you Been Recently Intoxicated or Drunk Within the Last 30 days?: Yes Have you Ever Experienced Previous Episodes of Alcohol Withdrawal?: Yes Have you ever Experienced Withdrawal Seizures?: Yes Have you ever Experienced Delirium Tremens(DT)s?: Yes Have you ever undergone Alcohol Rehabilitation Treatment (i.e, inpt ot o utpatient treatment programs)?: Yes Have you ever Experienced Blackouts?: Yes Have you ever Combined Alcohol with other Downers within the last 90 days?: Yes Have you ever Combined Alcohol with any other Substance of Abuse during the last 90 days?: Yes Positive Blood Alcohol level on Presentation? [PCS.BAL]: Yes Evidence of Increased Autonomic Activity (i.e. HR>120, tremor, sweating, agitation, nausea)?: No Result: 9
[2022-06-23 15:00] LABS: Lipase 75 U/L (73-393)
[2022-06-23 15:43] VITALS: BP 135/83; PULSE 65; RESP 16; TEMP 36.5; O2SAT 97
[2022-06-23] MEDS: Simethicone 80 MG CHEW 240 MG PO (15:49)
[2022-06-23 20:01] VITALS: BP 137/88; PULSE 77; RESP 16; TEMP 36.7; O2SAT 98
[2022-06-23] MEDS: LORazepam 1 MG TAB PO (20:48)
--- NOTE | 2022-06-23 21:33 | MHPN_ITS ---
Date of service: 06/23/22 Time of Service: 21:34 PHQ-9 Over the last 2 weeks, how often have you been bothered by any of the following problems? 1. Little interest or pleasure in doing things: nearly every day 2. Feeling down, depressed, or hopeless: nearly every day 3. Trouble falling or staying asleep, or sleeping too much: nearly every day 4. Feeling tired or having little energy: nearly every day 5. Poor appetite or overeating: nearly every day 6. Feeling bad about yourself - or that you are a failure or have let yourself and your family down: nearly every day 7. Trouble concentrating on things, such as reading the newspaper or watching television: nearly every day 8. Moving or speaking so slowly that other people could have noticed? - Or the opposite - being so fidgety or restless that you have been moving around a lot more than usual: more than half the days 9. Thoughts that you would be better off or of hurting yourself in some way: more than half the days Total score: 25 If you checked off any problems, how difficult have these problems made it for you to do your work, take care of things at home, or get along with other people?: very difficult Source: Developed by Drs. Earl Reyes, Colette Lucero, Galen Cadet and colleagues, with an educational von from [employer]. Suicide Severity Rate CSSRS Have you wished you were or wished you could go to sleep and not wake up?: Yes Have you actually had any thoughts of killing yourself?: Yes CSSRS2 Have you been thinking about how you might do this?: Yes Have you had these thoughts and had some intention of acting on them?: Yes Have you started to work out or worked out the details of how to kill yourself? Do you intend to carry out this plan?: No CSSRS3 Have you ever done anything, started to do anything or prepared to do anything to end your life?: No Screening Score Total Score: 4 Screening: Positive Mental Health Emergency Note Release HS release signed:: No Reason for Visit Client presented to the ED on 06.19.2022 for SI, as well as help for his ETOH and drug addiction. He has had numerous hospitalizations at [facility] and is stabilized and returned back to his community however, does not or is unable to follow through with after care treatments to help him remain stable per care mangers at [facility]. In the last 2 weeks has the pt presented for ES prior to today?: Unknown Client Information Client is: Substance use Well Housed: No,status: Homeless Unstable housing Non Suicidal Self Injury Current: No History: No Safety Risk/Harm to Self or Others Current Ideation to Harm Self or Others: Yes to self. (see previous notes ) Intent: yes, has intent. Plan: yes,has a plan. History of suicide attempt: No history of suicide attempt reported Risk: Does risk to harm exist?: yes. Access to means: Yes. Types of Means: Other (street drugs if released). Counseling provided: Yes Risk: Moderate Risk Duty to warn indicated: No Asssessment/Mental Status Appearance: Disheveled Attitude: Cooperative Behavior: Unremarkable Speech: Soft Affect: Flat Mood: Depressed Thought process: Goal directed Hallucinations: No Delusions: No Attention: Unremarkable Perception: Not impaired Orientation: Fully orientated Memory: Intact Insight: Fair Judgement: Fair Neurovegetative Symptoms Sleep: Increase Appetitie: Increase Interests: Decrease Energy: Decrease Libido: Not applicable Substance Use: ETOH dependence Drug Issues: Dependence Do you use nicotine?: Yes Have you used substances in the last 7 days?: yes, Unknown Additional Issues: Assaultive/Threatening Behavior: No Medical Concerns: No Client engaged in active self harm w/weapon: No Threatening to run away: No Child reported abuse/neglect: No Voluntarily presenting for services: Yes Domestic violence is a concern: No Extreme Psychosis or extreme behavior is present: No Impression Client is soft spoken today and appears more withdrawn than the previous day. His self-reported risk for self-harm increased to a 6 from the previous 5 yesterday and is equal to the report he gave two days ago. Client does not change his reports of pain and thinking it is withdrawals however, per care process manager his symptoms of that are not consistent with his presentation. In addition his LIPASE is 2.8 down from his previous which was 1145. The client is eating well and sleepy constantly per his report. Client meets criteria for inpatient treatment and is not wiling to settle for outpatient treatment. Resources Reosurces reviewed and given:: [facility] Plan/Disposition Recommended Disposition: PCP/Office visit, [facility] Services [facility] Services: Other and Hospitalization facilities contacted. Plan: Client continues to meet criteria for inpatient treatment. He is not amendable to anything of a lesser restriction at this time however, did accept a referral for case management upon discharge. This will need to be arraigned with ES prior to discharge so that an appointment can be made before he leaves and is added to his d/c plan. Client will continue to be assessed daily until placement is found.? Person reported agreement to plan: Yes Facilities contacted if Applicable [facility] Not accepted, No bed available [facility] Not accepted, No bed available [facility] Not accepted, Only accepting in house referrals, [facility] Not accepted, Other (still reviewing ) Reports/communication Outcome discussed with: ED/Personnel
[2022-06-24 03:37] VITALS: BP 143/99; PULSE 84; RESP 18; TEMP 36.8; O2SAT 98
[2022-06-24] MEDS: hydrOXYzine HCL 25 MG TAB 50 MG PO ×2 (03:52→12:58)
[2022-06-24 07:17] VITALS: BP 134/94; PULSE 69; RESP 16; TEMP 36.6; O2SAT 99
[2022-06-24 07:45] VITALS: O2SAT 98
[2022-06-24] MEDS: buPROPion-XL 150 MG TABCR PO (07:53)
[2022-06-24] MEDS: FLUoxetine 20 MG CAP 80 MG PO (07:54)
[2022-06-24] MEDS: Folic Acid 1 MG TAB PO (07:54)
[2022-06-24] MEDS: Omeprazole 20 MG CAPCR 40 MG PO (07:55)
[2022-06-24] MEDS: Multivitamin TAB 1 TAB PO (07:55)
[2022-06-24] MEDS: LORazepam 1 MG TAB PO ×3 (07:55→17:28)
[2022-06-24] MEDS: Thiamine 100 MG TAB PO (07:56)
[2022-06-24] MEDS: Methadone Liquid 10 MG/ML 80 MG PO (08:15)
[2022-06-24 09:21] VITALS: BP 128/84; PULSE 77; RESP 20; O2SAT 98
--- NOTE | 2022-06-24 11:02 | CMPROGNOTE_ITS ---
- If Service Date Differs Date of service: 06/24/22 Time of Service: 11:02 Care Management Progress Note S/O: William as accepted to [facility] and is agreeable to transferring there. Covid test done, negative. [facility] [facility] ETA 5:30-6pm, to arrive after 7:30pm. A: 41 year old male admitted to [facility] for Polysubstance abuse, Depression, Pancreatitis, Suicidal ideation P: William is on SI precautions with a 1:1 CPSO, safety plan and is being followed by [facility] crisis clinicians. William is waiting for voluntary placement to a psychiatric facility for SI, once medically cleared. Referrals have been sent to [facility] Walters, [place] and [facility]. Transportation will be determined by disposition. CM will continue to follow and support discharge planning concerns. 06/24/22 Referral Status [place]: Reviewing, Accepted. [place]:Reviewing, no beds [facility]: No beds [place]: No beds
--- NOTE | 2022-06-24 11:02 | PDOC.CMPRO ---
- If Service Date Differs Date of service: 06/24/22 Time of Service: 11:02 Care Management Progress Note S/O: William as accepted to [facility] and is agreeable to transferring there. Covid test done, negative. [facility] [employer] [facility] [facility]. ETA 5:30-6pm, to arrive after 7:30pm. A: 41 year old male admitted to [facility] for Polysubstance abuse, Depression, Pancreatitis, Suicidal ideation P: William is on SI precautions with a 1:1 CPSO, safety plan and is being followed by [facility] crisis clinicians. William is waiting for voluntary placement to a psychiatric facility for SI, once medically cleared. Referrals have been sent to [facility] Walters, [place] and [facility]. Transportation will be determined by disposition. CM will continue to follow and support discharge planning concerns. 06/24/22 Referral Status [place]: Reviewing, Accepted. [place]:Reviewing, no beds [facility]: No beds [place]: No beds
--- NOTE | 2022-06-24 11:05 | PDOC.CMSAFE ---
- If Service Date Differs Date of service: 06/24/22 Time of Service: 11:05 Care Management Safety Plan Status: Voluntary - Reason for Wait Reason for Wait: Inpatient Admission VOLUNTARY FOR INPATIENT PSYCHIATRIC STABILIZATION. Patient is appropriate in all interactions since arriving at [facility]; Pt has demonstrated appropriate coping and communication skills, has articulated his or her needs and concerns and is fully engaged during staff interactions. Plan is for William to remain inpatient while waiting for placement at appropriate inpatient psych facility. Sachin is reviewing and contacted Med-Surg for update. Possible bed tomorrow.. Safety plan has been established with patient, and care team, to adhere to patient goals, identify restrictions based on behavioral status, address nutrition, and determine allowed personal belongings, tools for hygiene and personal care. Determine level of activity including ambulation, level of supervision, visitors, and determine privileges based on behaviors and level of engagement by pt. SAFETY PLAN: 1. Will remain on suicide precautions. In Paper Clothes. 2. Will remain in room under direct supervision of one-on-one staff at all times provided by CPSO, RADHA, [employer] SENATOR tablet machine operator. 3. May have paper cups, plates, finger foods as well as a cardboard spoon with which to eat meals. 4. Follow [facility] Management of the Admitted Behavioral Health Patient policy. 5. Shower permitted with escort at RN discretion. 6. No personal belongings. 7. No visitors at this time. 8. Activities: soft cart items, music tablet, television, and other activities at RN discretion. 9. Bathroom privileges in room without limitation. 10. Phone: may use [employer] hospital phone at RN discretion. 11. Due to VOLUNTARY status, if patient wishes to leave [facility], staff will contact [facility] Crisis Screener ([phone]) and On-Call Director Of Program Management ([phone]) as soon as possible. In the event of elopement, notify [place] [employer] ([phone]). Patient is currently voluntarily at [facility] and seeking inpatient admission when a bed becomes available. [facility] Frontline Shoelace Tipping Machine Operator will continue seeking placement. Please contact the Rail Specialist Director Of Program Management ([phone]) and [facility] Shoelace Tipping Machine Operator ([phone]) for any needed changes in the Safety Plan. Safety plan has been provided to interdepartmental care team.
--- NOTE | 2022-06-24 11:07 | PDOC.MHPN2 ---
Date of service: 06/22/22 Time of Service: 12:14 PHQ-9 Over the last 2 weeks, how often have you been bothered by any of the following problems? 1. Little interest or pleasure in doing things: nearly every day 2. Feeling down, depressed, or hopeless: nearly every day 3. Trouble falling or staying asleep, or sleeping too much: nearly every day 4. Feeling tired or having little energy: nearly every day 5. Poor appetite or overeating: nearly every day 6. Feeling bad about yourself - or that you are a failure or have let yourself and your family down: nearly every day 7. Trouble concentrating on things, such as reading the newspaper or watching television: nearly every day 8. Moving or speaking so slowly that other people could have noticed? - Or the opposite - being so fidgety or restless that you have been moving around a lot more than usual: more than half the days 9. Thoughts that you would be better off or of hurting yourself in some way: more than half the days Total score: 25 If you checked off any problems, how difficult have these problems made it for you to do your work, take care of things at home, or get along with other people?: very difficult Source: Developed by Drs. Earl Reyes, Colette Lucero, Galen Cadet and colleagues, with an educational von from [employer]. Suicide Severity Rate CSSRS Have you wished you were or wished you could go to sleep and not wake up?: Yes Have you actually had any thoughts of killing yourself?: Yes CSSRS2 Have you been thinking about how you might do this?: Yes Have you had these thoughts and had some intention of acting on them?: Yes Have you started to work out or worked out the details of how to kill yourself? Do you intend to carry out this plan?: No CSSRS3 Have you ever done anything, started to do anything or prepared to do anything to end your life?: No Screening Score Total Score: 4 Screening: Positive Mental Health Emergency Note Release HS release signed:: No Reason for Visit Client presented to the ED on 06.19.2022 for SI, as well as help for his ETOH and drug addiction. He has had numerous hospitalizations at [facility] and is stabilized and returned back to his community however, does not or is unable to follow through with after care treatments to help him remain stable per care mangers at [facility]. In the last 2 weeks has the pt presented for ES prior to today?: Unknown Client Information Client is: Substance use Well Housed: No,status: Homeless Unstable housing Non Suicidal Self Injury Current: No History: No Safety Risk/Harm to Self or Others Current Ideation to Harm Self or Others: Yes to self. Intent: yes, has intent. Plan: yes,has a plan. History of suicide attempt: No history of suicide attempt reported Risk: Does risk to harm exist?: yes. Access to means: Yes. Types of Means: Other. Details: Street drugs if he were released . Counseling provided: Yes Risk: High Risk Duty to warn indicated: No Asssessment/Mental Status Appearance: Disheveled Attitude: Cooperative Behavior: Repetitive movements Speech: Soft Affect: Flat Mood: Stressed and Depressed Thought process: Goal directed Hallucinations: No Delusions: No Attention: Unremarkable Perception: Not impaired Orientation: Fully orientated Memory: Intact Insight: Fair Judgement: Fair Neurovegetative Symptoms Sleep: Decrease Appetitie: No change Interests: Decrease Energy: Decrease Libido: Not applicable Substance Use: ETOH dependence Drug Issues: Dependence Do you use nicotine?: Yes Have you used substances in the last 7 days?: yes, As much as I can Additional Issues: Assaultive/Threatening Behavior: No Medical Concerns: No Client engaged in active self harm w/weapon: No Threatening to run away: No Child reported abuse/neglect: No Voluntarily presenting for services: Yes Domestic violence is a concern: No Extreme Psychosis or extreme behavior is present: No Impression Client continues to endorse SI with intent and plan. He continues to decline lesser restrictive means to treat his symptoms. He presents as continuing to struggle with his substance abuse issues I feel like I am detoxing and my body hurts and because of this it has affected his mental health. Client was approached about his history of not following through with follow up appointments when discharged and he could not identify why he has not done this. This clinician offered him case management that could assist him in breaking down those barriers as well as, helping him navigate his goal to get on disability. Client was open to this. Resources Reosurces reviewed and given:: Other Plan/Disposition Recommended Disposition: Hospitalization facilities contacted. Plan: This clinician will put in a referral for case management to attempt to assist the client in maintaining stability upon discharge from the hospital. He will continue to be assessed daily until placement is found.? Person reported agreement to plan: Yes Facilities contacted if Applicable [facility] Not accepted, No bed available [facility] Not accepted, No bed available [facility] Not accepted, Only accepting in house referrals, [facility] Not accepted, Other (Reviewing chart) Reports/communication Outcome discussed with: ED/Personnel
[2022-06-24 14:34] LABS: Source Nasal/Nares
[2022-06-24 14:45] VITALS: BP 120/72; PULSE 79; RESP 16; TEMP 36.2; O2SAT 95
[2022-06-24 15:05] LABS: COVID-19 PCR Negative (Negative)
--- NOTE | 2022-06-24 15:54 | DSE_ITS ---
Date of service: 06/24/22 Time of Service: 15:54 DS: Diagnosis Discharge Diagnosis (1) Suicidal ideation: Status: Resolved (2) Pancreatitis: Status: Chronic (3) Depression: Status: Chronic (4) Hypokalemia: Status: Resolved (5) Opioid dependence on agonist therapy: Status: Acute (6) Nicotine dependence: Status: Acute (7) Alcohol dependence: Status: Chronic (8) Polysubstance abuse: Status: Acute Discharge Plan Disposition Patient Disposition: [facility] Condition: Stable Discharge Details Reason For Visit: Pancreatitis Admit Date/Time: 06/19/22 23:50 Admit Provider: Regino Woodward Attending Provider: Che Cota Primary Care Provider: Unknown,Unknown Hospital Course Hospital Course: This is a 41 yo man who has a history of polysubstance use disorder on methadone who was admitted for suicidal ideation and found to have pancreatitis in addition to active alcohol intoxication. He was recently discharged from [facility] on 03/08/22 for similar issues surrounding polysubstance use and suicidal thoughts, During the work up for abdominal pain his lipase was found to be elevated to over 1000, so abdominal imaging was obtained. The patient reports significant alcohol use and endorsed a plan to overdose on IV heroin intentionally to the ED provider. He was assessed by mental health who felt as though he would benefit from voluntary placement. The patient does have significant alcohol use in addition to polysubstance use (as outlined in his U tox) but does not have active signs of withdrawal. He also states that he has had delirium tremens in the past along with withdrawal seizures, but the patient also does seem to confabulate.? He was admitted to med/surg for acute pancreatitis and alcohol intoxication, monitoring with withdrawal. His abdominal pain improved in the absence of alcohol. Diet advanced and remained medically stable from a GI standpoint. He experienced some mild ETOH withdrawal symptoms, mostly subjective, which did respond to prn lorazepam. His symptoms resolved and he was medically cleared. At that point he was moved to our transition unit where is has remained while awaiting a bed. He has been cooperative with no behavioral issues. A bed have become available at [facility] and report has been given to Jacqueline Aguilar APRN who accepts patient in transfer. patient is being transferred by [facility] department in stable condition. discussed with DR Purcell. Home Meds and New Rx's Prescriptions: Continued methadone 10 MG/ML concentrate 80 mg PO DAILY omeprazole 40 mg Capsule,Delayed Release(Dr/Ec) 40 mg PO DAILY bupropion HCl 300 mg tablet extended release 24 hr 150 mg PO DAILY Label Comments: TAKE 1 TABLET BY MOUTH EVERY DAY fluoxetine 40 mg capsule 80 mg PO DAILY Label Comments: TK 2 CS PO QAM hydroxyzine pamoate 50 mg capsule 50 mg PO Q8H PRN PRN Label Comments: TK 1 C PO Q 4 H PRN loratadine 10 mg tablet 10 mg PO DAILY Label Comments: TK 1 T PO QD albuterol sulfate [Ventolin HFA] 90 mcg/actuation Hfa Aerosol Inhaler 2 puff inhalation Q4H PRN PRNQty: 8.5 0RF cetirizine 10 mg Tablet 10 mg PO HS Qty: 30 0RF cyanocobalamin (vitamin B-12) [Vitamin B-12] 500 mcg Tablet 1,000 mcg PO DAILY Qty: 30 0RF folic acid 1 mg Tablet 1 mg PO QAM Qty: 30 0RF naloxone [Narcan] 4 mg/actuation spray,non-aerosol 4 mg intranasal Q2-3M PRNQty: 2 0RF Rx Instructions: spray 1 dose into ONE nostril; alternate nostrils w each dose until help arrives Discharge Instructions Instructions: Depression (DC), Suicide Prevention (DC) Stand Alone Forms: Nursing Discharge Form Activity:: Activity as Tolerated Equipment/Supplies:: No Equipment Needed Diet:: As Tolerated Discharge Orders Discharge Orders: Discharge Order (Routine); Ordered 06/24/22 Ordered By: Judy Wagoner DS: Summary Time Spent with Patient providing and/or coordinating discharge services: Greater than 30 minutes Status at Discharge Functional status at discharge: independent ambulation Overall status at discharge: patient is not back to baseline Mental Status: mental status grossly normal and other (depressed, cooperative ) Speech and Movement: speech and movement normal Mood: other (depressed, cooperative ) Affect: blunted Exam Const General: cooperative, comfortable and no acute distress Nutritional Appearance: average body habitus Orientation: alert, awake and oriented x3 HENMT Head: normal to inspection, normocephalic and atraumatic Mouth: oral mucosae normal Chest Chest: normal inspection of the chest Resp Effort & Inspection: normal respiratory effort Auscultation: no wheezes Cardio Rate: regular rate Rhythm: regular rhythm GI Inspection: normal to inspection and non-distended Palpation: soft, no guarding, no masses and nontender Skin General skin exam: no rashes or lesions noted Neuro General: patient alert, patient awake, patient oriented x3 and no focal motor deficits Cognition: normal cognition Motor: muscle tone normal throughout Extrem General: normal to inspection and no pedal edema Psych Appearance: grossly normal Mental Status: mental status grossly normal and other (depressed, cooperative ) Speech and Movement: speech and movement normal Mood: other (depressed, cooperative ) Affect: blunted Insight: poor Judgment: poor DS: Data Vitals/I&O Vitals and I&O: Vital Signs Temperature 36.2 C L 06/24/22 14:45 Temperature Source Axillary 06/24/22 14:45 Pulse 79 06/24/22 14:45 Pulse Rhythm Regular 06/24/22 07:45 Respiratory Rate 16 06/24/22 14:45 Respiratory Effort Non-Labored 06/24/22 07:45 Respiratory Depth Normal 06/24/22 07:45 Respiratory Pattern Normal 06/24/22 07:45 Blood Pressure 120/72 06/24/22 14:45 Pulse Oximetry 95 06/24/22 14:45 Oxygen Delivery Method Room Air 06/24/22 14:45 Oxygen Flow Rate 0 06/24/22 14:45 Pain Level 8 06/24/22 14:45 Comment 06/24/22 14:45 Intake & Output 06/23/22 06/24/22 06/24/22 23:59 11:59 23:59 Intake Total 240 / 490 880 / 1660 780 / 1660 Balance 240 / 490 880 / 1660 780 / 1660 Intake: Oral 240 / 490 880 / 1660 780 / 1660 Other: Comment voided independently. patient voided in the bathroom of his room. Stool Size Moderate Voiding Methods Toilet Toilet Data Completed and Pending Labs on day of discharge: Labs from last 24 hours 06/24/22 14:17 COVID-19 Source Nasal/Nares SARS-CoV-2 (PCR) Negative PFSH All Active Problems (Updated 06/23/22 @ 15:52 by Greta Christainson NP) Nicotine dependence (Acute) Discharge planning issues (Acute) DVT prophylaxis (Acute) Suicidal ideation (Acute) Pancreatitis (Chronic) Depression (Chronic) Opioid dependence on agonist therapy (Acute) Alcohol dependence (Chronic) Polysubstance abuse (Acute) Medical History (Updated 06/23/22 @ 15:52 by Greta Christianson NP) Acute bronchitis Alcohol withdrawal Bronchospasm Chronic deep vein thrombosis (DVT) Cocaine withdrawal Depression Hepatitis B Hepatitis C History of osteomyelitis Polysubstance abuse Suicide ideation Family History Other Alcohol use disorder Depression Social History (Updated 03/02/22 @ 08:47 by Madan Palafox) Smoking/Tobacco Use Status: Former Tobacco Use Smoking risk assessment performed?: Yes Alcohol Intake: current Alcohol Intake frequency: 3 or more drinks per day Alcohol type: beer and hard liquor Drug use: Binges Substance use type: marijuana Details: drinks a case and a half of beer a day and a fifth of vodka. Do you feel safe at home: Yes Do you feel safe in your relationship?: Yes Additional Social history: Currently homeless. Has 13 [facility] old [facility] that does not live with him.
--- NOTE | 2022-06-24 16:20 | NUR.NOTE ---
Nurse to nurse report given to ANTONIO Hall at [facility].
--- NOTE | 2022-06-24 17:21 | PDOC.CMDIS ---
- If Service Date Differs Date of service: 06/24/22 Time of Service: 17:21 LACE Index Scoring Tool - Questions: Length of Stay (in days): 4 - 6 Acuity (Admit via E.D.?): Yes E.D. Visits: 8 - Answers: Total Score: 11 Risk of Readmission: High Risk Care Management Discharge Reason for Hospitalization: Polysubstance abuse, Depression, Pancreatitis, Suicidal ideation Discharge Plan: William is discharged to [facility] via [facility]. He will follow up with facility providers and discharge plan of care as prescribed. Patient/Family Education Needs: Review discharge instructions, limitations, medications and plan to follow up with community providers. ask me three. - Disposition Disposition: [facility] (Inpatient ) Transport via of: [facility] ([facility] )
[2022-06-24] MEDS: Acetaminophen 500 MG TAB 1000 MG PO (17:25)
== END 2022-06-24 17:35 | disposition short-term general hospital (02) | DRG 881 ==
LOC: ER 06-20 00:58 → MS 06-20 01:03
PROVIDERS: Family Medicine; Internal Medicine; Nurse Practitioner Family; Admitting Provider Family Medicine; Emergency Provider Physician Assistant; Visit Provider Student in an Organized Health Care Education/Training Program
DX: F32.A Depression, unspecified (principal); R45.851 Suicidal ideations; F11.20 Opioid dependence, uncomplicated; K86.1 Other chronic pancreatitis; F10.239 Alcohol dependence with withdrawal, unspecified; F19.10 Other psychoactive substance abuse, uncomplicated; E87.6 Hypokalemia; F10.229 Alcohol dependence with intoxication, unspecified; Z59.00 Homelessness unspecified; Z87.891 Personal history of nicotine dependence; Y90.5 Blood alcohol level of 100-119 mg/100 ml
CPT/HCPCS: 36415; 80048; 80053; 80076; 80307; 83690; 85027; 86850; 86900; 86901; 87635; 96360; 99285; J1650; 74176; 80320; 81003; 83735; 84100; 84443; 84478; 85025; 85610; 86140; 93005; 93010; 99225; 99232; 99233; 99239

== ENCOUNTER 2022-12-12 07:50 | Emergency (ER) | payer MEDICAID, SELFPAY ==
[2022-12-12] VITALS (78 sets, daily range): BP systolic 107–157; BP diastolic 61–111; PULSE 52–92; RESP 10–21; TEMP 36.3; O2SAT 89–100
--- NOTE | 2022-12-12 08:04 | NUR.NOTE ---
pt states I am feeling suicidal ideation, when pt asked for how long he states my whole life. pt denies specific plan at this time. pt endorses drug and alcohol use yesterday stating he used cocaine and drank approx 0.5 gallon of alcohol, last drink being 0200 this am.
--- NOTE | 2022-12-12 08:20 | W.ED.GENAD ---
Discharge Plan Disposition Patient Disposition: Home Condition: Improving Discharge Details Clinical Impression: Depression, Polysubstance abuse Primary Care Provider: None,None ED Provider: Polo Esparza Home Meds and New Rx's Prescriptions: Continued methadone 10 MG/ML concentrate 80 mg PO DAILY omeprazole 40 mg Capsule,Delayed Release(Dr/Ec) 40 mg PO DAILY bupropion HCl 300 mg tablet extended release 24 hr 150 mg PO DAILY Patient Comments: TAKE 1 TABLET BY MOUTH EVERY DAY fluoxetine 40 mg capsule 40 mg PO DAILY Patient Comments: TK 2 CS PO QAM hydroxyzine pamoate 50 mg capsule 50 mg PO Q8H PRN PRN Patient Comments: TK 1 C PO Q 4 H PRN loratadine 10 mg tablet 10 mg PO DAILY Patient Comments: TK 1 T PO QD cyanocobalamin (vitamin B-12) [Vitamin B-12] 500 mcg Tablet 1,000 mcg PO DAILY Qty: 30 0RF folic acid 1 mg Tablet 1 mg PO QAM Qty: 30 0RF naloxone [Narcan] 4 mg/actuation spray,non-aerosol 4 mg intranasal Q2-3M PRNQty: 2 0RF Rx Instructions: spray 1 dose into ONE nostril; alternate nostrils w each dose until help arrives Discontinued albuterol sulfate [Ventolin HFA] 90 mcg/actuation Hfa Aerosol Inhaler 2 puff inhalation Q4H PRN PRNQty: 8.5 0RF cetirizine 10 mg Tablet 10 mg PO HS Qty: 30 0RF Discharge Instructions Instructions: Depression (ED) Additional Instructions: Please follow safety plan as discussed. If you develop any new or worsening symptoms feel free to return the emergency department for reconsideration of voluntary admission to psychiatric facility. Continue to take your normally prescribed meds as directed and continue follow-up with substance abuse counseling along with your normal counselor for your ongoing depression and substance abuse. Referrals: [facility] [Outside] (As per safety plan) Discharge Data Discharge Date/Time-TO BE ENTERED AT DEPARTURE: 12/13/22 11:11 Medical Decision Making <Polo Esparza NP - Last Filed: 12/14/22 08:20> Patient presenting to the emergency department for chief complaint of major depression and suicidal ideation. Patient denies any specific plan but states significant hopelessness depression and thoughts of wanting his life to be over. He does report that he is on methadone and has done illicit drugs along with drinking 1/2 gallon of vodka daily. Patient denies any other symptoms at this time, denies anxiety or tremor, does state history of alcohol withdrawal with seizure but states he is feeling okay right now. Physical exam is unremarkable for any worries of Acute medical concerns but will check patient's labs due to substance abuse. Reviewed patient's labs and CBC is nondiagnostic nonworrisome, CMP shows no emergent concerning findings. Urinalysis shows no signs of infection and UDS is positive for methadone cocaine and THC which patient admitted to at initial evaluation. Patient's alcohol level is 66.8 so will allow for appropriate amount of time before mental health assessment to further have patient cleared but at this time he is not clinically intoxicated. Patient spoke with mental health provider who after discussion we will continue to pursue voluntary placement for major depression with suicidal ideation without current plan and multiple substance abuse. LB: Care was accepted from Bryson Esparza, nurse practitioner and the plan is to voluntarily hospitalize for suicidal ideation, patient has been calm and cooperative throughout this shift A CIWA has been placed as patient has a history of reported alcohol withdrawal, please see nursing documentation for Ativan administration, patient is not tremulous or tachycardic on reassessment by me, he is on telemetry monitoring and vitals have been stable ND:12/13/22 [address] Hanley patient remained stable with no severe signs of withdrawal or change in condition. We will continue CIWA protocol and give daily morning meds. Patient continues to remain voluntary and seeking psychiatric admission along with help for substance abuse. 1030-patient informed nursing staff that he no longer wanted to be admitted to psychiatric facility. I spoke with patient and patient stated that he no longer felt suicidal and is seeking rehab assistance. Patient already did speak with [facility] yesterday for resources. staffing mgr did initiate calling [facility] to have reassessment by acute screener. After rescreening patient discharged to follow-up on outpatient basis and continue to seek substance abuse care. Lab Data Lab results reviewed: Yes I reviewed the patient's lab results. <SYL Smalls - Last Filed: 12/12/22 21:02> Patient presenting to the emergency department for chief complaint of major depression and suicidal ideation. Patient denies any specific plan but states significant hopelessness depression and thoughts of wanting his life to be over. He does report that he is on methadone and has done illicit drugs along with drinking 1/2 gallon of vodka daily. Patient denies any other symptoms at this time, denies anxiety or tremor, does state history of alcohol withdrawal with seizure but states he is feeling okay right now. Physical exam is unremarkable for any worries of Acute medical concerns but will check patient's labs due to substance abuse. Reviewed patient's labs and CBC is nondiagnostic nonworrisome, CMP shows no emergent concerning findings. Urinalysis shows no signs of infection and UDS is positive for methadone cocaine and THC which patient admitted to at initial evaluation. Patient's alcohol level is 66.8 so will allow for appropriate amount of time before mental health assessment to further have patient cleared but at this time he is not clinically intoxicated. Patient spoke with mental health provider who after discussion we will continue to pursue voluntary placement for major depression with suicidal ideation without current plan and multiple substance abuse. LB: Care was accepted from Bryson Esparza, nurse practitioner and the plan is to voluntarily hospitalize for suicidal ideation, patient has been calm and cooperative throughout this shift A CIWA has been placed as patient has a history of reported alcohol withdrawal, please see nursing documentation for Ativan administration, patient is not tremulous or tachycardic on reassessment by me, he is on telemetry monitoring and vitals have been stable HPI <Polo Esparza NP - Last Filed: 12/14/22 08:20> General Mode of arrival: ambulatory. Date/Time Provider Initiated Documentation: 12/12/22 07:52. Limitations to Documentation: no limitations. Information obtained by: patient and RN notes reviewed. History of Present Illness 42 year old M presents to the emergency department with the chief complaint of Depression and suicidal ideation, described as severe and similar to prior episodes, Patient started experiencing this year(s) and it has been constant. No relieving factors improve symptom(s), No exacerbating factors reported . Patient notes no other symptoms.. Patient did receive the following treatments prior to arrival, none Related Data Home Medications Medication Instructions Recorded Confirmed methadone 10 mg/mL oral concentrate 80 mg PO DAILY 03/31/14 12/12/22 fluoxetine 40 mg capsule 40 mg PO DAILY 10/09/20 12/12/22 hydroxyzine pamoate 50 mg capsule 50 mg PO Q8H PRN PRN 10/09/20 12/12/22 loratadine 10 mg tablet 10 mg PO DAILY 10/09/20 12/12/22 cyanocobalamin (vitamin B-12) 500 1,000 mcg PO DAILY #30 tabs 02/20/22 06/20/22 mcg tablet (Vitamin B-12) folic acid 1 mg tablet 1 mg PO QAM #30 tabs 02/20/22 06/20/22 naloxone 4 mg/actuation nasal 4 mg intranasal Q2-3M PRN #2 ea 03/08/22 12/12/22 spray (Narcan) bupropion HCl 300 mg 24 hr tablet, 150 mg PO DAILY 06/19/22 12/12/22 extended release omeprazole 40 mg capsule,delayed 40 mg PO DAILY 06/19/22 12/12/22 release Previous Rx's Medication Instructions Recorded cyanocobalamin (vitamin B-12) 500 1,000 mcg PO DAILY #30 tabs 02/20/22 mcg tablet (Vitamin B-12) folic acid 1 mg tablet 1 mg PO QAM #30 tabs 02/20/22 naloxone 4 mg/actuation nasal 4 mg intranasal Q2-3M PRN #2 ea 03/08/22 spray (Narcan) Allergies Allergy/AdvReac Type Severity Reaction Status Date / Time No Known Allergies Allergy Unverified 12/12/22 08:00 General Stated Complaint: PsychEval RAVEN: 2 Review of Systems <Polo Esparza NP - Last Filed: 12/14/22 08:20> Narrative: 6 systems reviewed and unremarkable except what is marked below. Psychiatric Psychiatric: Reports as per HPI, Reports depression, Reports hopelessness, Reports anhedonia, Denies homicidal ideation and Reports suicidal ideation PFS <Polo Esparza NP - Last Filed: 12/14/22 08:20> All Active Problems (Updated 12/13/22 @ 11:04 by Polo Esparza NP) Nicotine dependence (Acute) Suicidal ideation (Acute) Pancreatitis (Chronic) Depression (Chronic) Opioid dependence on agonist therapy (Acute) Alcohol dependence (Chronic) Polysubstance abuse (Acute) Medical History Acute bronchitis Alcohol withdrawal Bronchospasm Chronic deep vein thrombosis (DVT) Cocaine withdrawal Depression Hepatitis B Hepatitis C History of osteomyelitis Polysubstance abuse Suicide ideation Family History Other Alcohol use disorder Depression Social History Smoking/Tobacco Use Status: Current every day Tobacco Type: cigarettes Smoking risk assessment performed?: Yes Alcohol Intake: current Alcohol Intake frequency: 3 or more drinks per day Alcohol type: beer and hard liquor Drug use: Binges Substance use type: marijuana, crack/cocaine and opiates Details: drinks a case and a half of beer a day and a fifth of vodka. Do you feel safe at home: Yes Do you feel safe in your relationship?: Yes Additional Social history: Currently homeless. Has 13 year old son in [facility] that does not live with him. Exam <Polo Esparza NP - Last Filed: 12/14/22 08:20> Const General: cooperative Orientation: alert, awake and oriented x3 Limitations: mental status not altered HENIL Head: normal to inspection, normocephalic and atraumatic Ears: hearing grossly normal bilaterally Mouth: moist mucous membranes Eyes General: appearance normal, both eyes and all related structures Pupils: PERRL EOM: EOM intact bilaterally Resp Effort & Inspection: normal respiratory effort, able to speak in complete sentences and no respiratory distress Auscultation: clear to auscultation bilaterally Cardio Rate: regular rate and not tachycardic Rhythm: regular rhythm Heart Sounds: S1 normal, S2 normal, no click, no gallops, no murmurs and no rubs Neuro General: patient alert, patient awake, patient oriented x3, gait normal, moves all extremities and no focal motor deficits Cognition: normal cognition Speech: speech normal Psych Speech and Movement: speech and movement normal and speech clear Affect: sad Attitude: cooperative Thought Process: normal Thought Content: normal and suicidality Course <Polo Esparza NP - Last Filed: 12/14/22 08:20> Vital Signs Vital signs: Vital Signs Temperature 36.3 C L 12/12/22 07:53 Pulse 78 12/12/22 07:53 Respiratory Rate 16 12/12/22 07:53 Blood Pressure 157/87 H 12/12/22 07:53 Pulse Oximetry 96 12/12/22 07:53 Temperature 36.3 C L 12/12/22 07:53 Temperature Source Temporal Artery Scan 12/12/22 07:53 Pulse 78 12/12/22 07:53 Respiratory Rate 16 12/12/22 07:53 Respiratory Effort Normal 12/12/22 07:56 Blood Pressure 157/87 H 12/12/22 07:53 Blood Pressure Position Sitting 12/12/22 07:53 Pulse Oximetry 96 12/12/22 07:53 Oxygen Delivery Method Room Air 12/12/22 07:53 Oxygen Flow Rate 0 12/12/22 07:53 Pain Level 0 12/12/22 07:53 Sign Out <Polo Esparza NP - Last Filed: 12/14/22 08:20> Sign Out Data: Sign Out Comment: Patient pending voluntary bed admission for depression and suicidal ideations with secondary polysubstance abuse. Last updated by Polo Esparza NP at 12/12/22 16:02 Sign Out Comment: pending voluntary bed admission for SI polysubstance abuse with ETOH withdrawal hx Last updated by Lisa Reyna PA at 12/12/22 23:39 Sign Out Comment: Polysubstance abuse with alcohol withdrawal. Received low-dose benzodiazepines for minimal withdrawal last night. Pending voluntary bed admission for suicidal ideations Last updated by Boogie Hanley DO at 12/13/22 06:57 PAWSS <Polo Esparza NP - Last Filed: 12/14/22 08:20> Have you Been Recently Intoxicated or Drunk Within the Last 30 days?: Yes Have you Ever Experienced Previous Episodes of Alcohol Withdrawal?: Yes Have you ever Experienced Withdrawal Seizures?: Yes Have you ever Experienced Delirium Tremens(DT)s?: Yes Have you ever undergone Alcohol Rehabilitation Treatment (i.e, inpt ot outpatient treatment programs)?: Yes Have you ever Experienced Blackouts?: Yes Have you ever Combined Alcohol with other Downers within the last 90 days?: Yes Have you ever Combined Alcohol with any other Substance of Abuse during the last 90 days?: Yes Result: 8 <SYL Smalls - Last Filed: 12/12/22 21:02> Result: 8
[2022-12-12 09:01] LABS: Bilirubin Negative (Negative); Blood Negative (Negative); Clarity Clear (Clear); Glucose Negative (Negative); Ketones Negative (Negative); Leukocyte Esterase Negative (Negative); Nitrite Negative (Negative); Urobilinogen 0.2 mg/dL (Up to 0.2)
[2022-12-12 09:02] LABS: Source Nasal/Nares
[2022-12-12 09:14] LABS: Abs Immature Grans 0.01 10^3/uL (0.0-0.06); Absolute Basophil Count 0.05 10^3/uL (0.0-0.2); Absolute Eosinophil Count 0.13 10^3/uL (0.0-0.7); Absolute Lymphocyte Count 2.07 10^3/uL (1.2-3.4); Absolute Monocyte Count 0.56 10^3/uL (0.1-0.8); Basophils % 0.9; Eosinophils % 2.4; HCT 42.7 % (40.0-50.0); HGB 13.8 g/dL (13.5-17.5); Immature Grans % 0.2; Lymphocytes % 38.2; MCH 28.7 pg (27.0-33.0); MCHC 32.3 % (32.0-36.0); MCV 89 fL (80-95); MPV 8.7 fL (8.0-11.0); Monocytes % 10.3; Platelet Count 406 10^3/uL (130-400); RBC 4.81 10^6/uL (4.36-5.78); RDW 14.5 % (11.8-14.1); RDW-SD 46.5 fL; WBC 5.42 10^3/uL (4.4-10.8)
--- NOTE | 2022-12-12 09:21 | NUR.NOTE ---
pt has been chaned into safety scrubs and belongings locked up. sitter at bedside for continuous monitoring
[2022-12-12 09:23] LABS: *AMPHETAMINES SCREEN URINE Negative (Negative); *BARBITURATES SCREEN URINE Negative (Negative); *BENZODIAZEPINES SCREEN URINE Negative (Negative); Cannabinoids THC Positive (Negative); Cocaine Screen,Urine Positive (Negative); METHADONE URINE SCREEN Positive (Negative); OPIATES URINE SCREEN Negative (Negative)
[2022-12-12 09:24] LABS: Tricyclic Antidepressants Negative (Negative)
[2022-12-12 09:28] LABS: ALT 23 U/L (16-63); AST 25 U/L (15-37); Albumin 2.9 g/dL (3.4-5.0); Alkaline Phosphatase 81 U/L (46-116); Anion Gap 7.7 mmol/L (3-11); BUN 5 mg/dL (7-18); Bilirubin, Total 0.2 mg/dL (0.2-1.0); CO2 28.3 mmol/L (21.0-32.0); CREATININE 0.8 mg/dL (0.70-1.30); Calcium 8.8 mg/dL (8.5-10.1); Chloride 103 mmol/L (98-107); ETHANOL BLOOD 66.8 mg/dL (<10); Estimated GFR 112.61 (mL/min/1.73m2); Glucose 84 mg/dL (74-106); Potassium 3.8 mmol/L (3.5-5.1); Sodium 139 mmol/L (136-145); Total Protein 7.8 g/dL (6.4-8.2)
[2022-12-12 09:34] LABS: COVID-19 PCR Negative (Negative)
[2022-12-12 09:41] LABS: Salicylate 3.8 mg/dL (<2.8)
[2022-12-12 09:48] LABS: Acetaminophen < 2 ug/mL (10-30)
--- NOTE | 2022-12-12 10:09 | CMSP_ITS ---
- If Service Date Differs Date of service: 12/12/22 Time of Service: 10:09 Care Management Safety Plan Status: Voluntary - Reason for Wait Reason for Wait: Inpatient Admission Chief Complaint: William presents in the ED seeking a voluntary psychiatric hospitalization for MH and SA treatment. He reports worsening anxiety and depression with intermittent suicidal ideation. He is assessed by Hermelinda [facility] crisis screener, today and found to meet criteria for a voluntary psych placement. Referrals are made to [facility], [facility], [facility] and [facility] for review. William will remain at [facility] and will be reassessed daily by [facility] until a placement can be secured for him. William also met with a Labor Relations Worker this morning. CM will continue to follow. VOLUNTARY FOR INPATIENT PSYCHIATRIC STABILIZATION. Patient is appropriate in all interactions since arriving at [facility]; Pt has demonstrated appropriate coping and communication skills, has articulated his or her needs and concerns and is fully engaged during staff interactions. Safety plan has been established with patient, and care team, to adhere to patient goals, identify restrictions based on behavioral status, address nutrition, and determine allowed personal belongings, tools for hygiene and personal care. Determine level of activity including ambulation, level of supervision, visitors, and determine privileges based on behaviors and level of engagement by pt. SAFETY PLAN: 1. Will remain on suicide precautions. In Paper Clothes 2. Will remain in room under direct supervision of one-on-one staff at all times provided by CPSO, SECURITY AND PRIVACY CONSULTANT, WALL INSULATION SPRAYER regional director of admissions. 3. May have paper cups, plates, finger foods as well as a cardboard spoon with which to eat meals. 4. Follow [facility] Management of the Admitted Behavioral Health Patient policy. 5. Shower permitted with escort at RN discretion. 6. No personal belongings-soft items permitted at RN discretion. 7. Visitors-none at this time. 8. Activities: soft cart items, music tablet, television is available and other activities at RN discretion. 9. Bathroom privileges with escort in the ED, available in room without limitation on M/S. 10. Phone: contact limited to family at this time, via [employer] hospital phone at RN discretion. 11. Due to VOLUNTARY status, if patient wishes to leave [facility], staff will contact [facility] Crisis Screener ([phone]) and On-Call Extension Agent ([phone]) as soon as possible. In the event of elopement, notify [facility] Police ([phone]). Patient is currently voluntarily at [facility] and seeking inpatient admission when a bed becomes available. [facility] Frontline Trucker will continue seeking placement. Please contact the [employer] Extension Agent ([phone]) and [facility] Trucker ([phone]) for any needed changes in the Safety Plan. Safety plan has been provided to interdepartmental care team.
--- NOTE | 2022-12-12 10:09 | PDOC.CMSAFED ---
- If Service Date Differs Date of service: 12/12/22 Time of Service: 10:09 Care Management Safety Plan Status: Voluntary - Reason for Wait Reason for Wait: Inpatient Admission Chief Complaint: William presents in the ED seeking a voluntary psychiatric hospitalization for MH and SA treatment. He reports worsening anxiety and depression with intermittent suicidal ideation. He is assessed by Hermelinda [facility] crisis screener, today and found to meet criteria for a voluntary psych placement. Referrals are made to [facility], [facility], [facility] and [facility] for review. William will remain at [facility] and will be reassessed daily by [facility] until a placement can be secured for him. William also met with a Fulfillment Representative this morning. CM will continue to follow. VOLUNTARY FOR INPATIENT PSYCHIATRIC STABILIZATION. Patient is appropriate in all interactions since arriving at [facility]; Pt has demonstrated appropriate coping and communication skills, has articulated his or her needs and concerns and is fully engaged during staff interactions. Safety plan has been established with patient, and care team, to adhere to patient goals, identify restrictions based on behavioral status, address nutrition, and determine allowed personal belongings, tools for hygiene and personal care. Determine level of activity including ambulation, level of supervision, visitors, and determine privileges based on behaviors and level of engagement by pt. SAFETY PLAN: 1. Will remain on suicide precautions. In Paper Clothes 2. Will remain in room under direct supervision of one-on-one staff at all times provided by CPSO, VISCOSE CELLAR WORKER, MUD JACK NOZZLEMAN personnel supervisor. 3. May have paper cups, plates, finger foods as well as a cardboard spoon with which to eat meals. 4. Follow [facility] Management of the Admitted Behavioral Health Patient policy. 5. Shower permitted with escort at RN discretion. 6. No personal belongings-soft items permitted at RN discretion. 7. Visitors-none at this time. 8. Activities: soft cart items, music tablet, television is available and other activities at RN discretion. 9. Bathroom privileges with escort in the ED, available in room without limitation on M/S. 10. Phone: contact limited to family at this time, via [employer] hospital phone at RN discretion. 11. Due to VOLUNTARY status, if patient wishes to leave [facility], staff will contact [facility] Crisis Screener ([phone]) and On-Call Bead Flipper ([phone]) as soon as possible. In the event of elopement, notify [facility] Police ([phone]). Patient is currently voluntarily at [facility] and seeking inpatient admission when a bed becomes available. [facility] Frontline Sales Operations Specialist will continue seeking placement. Please contact the Rejector Bead Flipper ([phone]) and [facility] Sales Operations Specialist ([phone]) for any needed changes in the Safety Plan. Safety plan has been provided to interdepartmental care team.
[2022-12-12] MEDS: LORazepam 1 MG TAB PO/SL ×3 (10:29→22:57)
--- NOTE | 2022-12-12 12:47 | PDOC.MHCN ---
Date of service: 12/12/22 Time of Service: 12:06 PHQ-9 Over the last 2 weeks, how often have you been bothered by any of the following problems? 1. Little interest or pleasure in doing things: nearly every day 2. Feeling down, depressed, or hopeless: nearly every day 3. Trouble falling or staying asleep, or sleeping too much: nearly every day 4. Feeling tired or having little energy: more than half the days 5. Poor appetite or overeating: nearly every day 6. Feeling bad about yourself - or that you are a failure or have let yourself and your family down: nearly every day 7. Trouble concentrating on things, such as reading the newspaper or watching television: nearly every day 8. Moving or speaking so slowly that other people could have noticed? - Or the opposite - being so fidgety or restless that you have been moving around a lot more than usual: nearly every day 9. Thoughts that you would be better off or of hurting yourself in some way: more than half the days Total score: 25 If you checked off any problems, how difficult have these problems made it for you to do your work, take care of things at home, or get along with other people?: extremely difficult Source: Developed by Drs. Earl Reyes, Colette Lucero, Galen Cadet and colleagues, with an educational von from [employer]. Suicide Severity Rate CSSRS Have you wished you were or wished you could go to sleep and not wake up?: Yes Have you actually had any thoughts of killing yourself?: No CSSRS2 Have you been thinking about how you might do this?: No Have you had these thoughts and had some intention of acting on them?: No Have you started to work out or worked out the details of how to kill yourself? Do you intend to carry out this plan?: No CSSRS3 Have you ever done anything, started to do anything or prepared to do anything to end your life?: No CSSRS4 Was this within the past three months?: No Screening Score Total Score: 2 Screening: Positive Mental Health Emergency Note Release [facility] release signed:: Yes Reason for Visit Client presents to [facility] ED on 12.12 with chief complaint of worsening anxiety and depression. Client reports, needing help and is requesting to seek dual treatment for both SA and MH. In the last 2 weeks has the pt presented for ES prior to today?: Unknown Client Information Client is: Adult Outpatient ([facility]) Well Housed: No,status: Homeless Unstable housing Non Suicidal Self Injury Current: No History: No Safety Risk/Harm to Self or Others Current Ideation to Harm Self or Others: Yes to self. (Client denies currently endorsing SI. However, client reports experiencing thoughts of SI earlier this morning and once since arriving to the ED. Cl rates level of intent 5/10 of harming self if he were to leave hospital. ) Intent: yes, has intent. Plan: no.does not have a plan. History of suicide attempt: No history of suicide attempt reported Asssessment/Mental Status Appearance: Disheveled Attitude: Guarded Behavior: Unremarkable Speech: Soft and Slow Affect: Flat and Cogruent with mood Mood: Sad and Depressed Thought process: Unremarkable Hallucinations: No and No evidence Delusions: No and No evidence Attention: Wandering (Client was observed by this video games storywriter closing eyes during parts of screening) Perception: Not impaired Orientation: Fully orientated Memory: Intact Insight: Fair Judgement: Fair Neurovegetative Symptoms Sleep: Increase (Client reports poor sleep habits. Client reports, I don't ever sleep. However, client reports he stayed at his father's house last night and was able to get some sleep. ) Appetitie: Disordered (Client reports irregular eating habits. Client reports eating less then one meal per day. Client reports eating one meal today.) Interests: Decrease (Client reports decrease in interest within the past two weeks per PHQ-9 rating. ) Energy: Decrease (Client reports decrease in energy within the past two weeks per PHQ-9 rating. ) Libido: Not applicable Substance Use: ETOH dependence (Client reports consuming alcohol daily since the age of 11/12 yrs. Client reports drink of choice is vodka. Client reports drinking 1/2 gallon daily. Client reports last consuming alcohol last night.) Drug Issues: Other (Client reports daily use of cocaine; Client reports consuming 4 grams daily of cocaine. Client reports last being under the influence of Cocaine yesterday, 3.1. Client reports daily cannabis use. Client reports smoking cannabis twice daily and reports last using cannabis earlier this am.) Do you use nicotine?: Yes Have you used substances in the last 7 days?: yes, Please review details listed above Impression Client is known to [facility]. Client is a 42 year old male. Client reports he previously resided in [place], [place]. However, reports is currently homeless and experiencing unstable housing. Client reports extensive hx of substance use (SA) since the age of 11/11 yrs of age. Client reports using the following substances on a daily basis: alcohol, cocaine, nicotine and/or cannabis. Client reports currently being followed by [facility] and is engaged in services. Client reports seeing therapist Madeleine at [facility], everyday this week due to ongoing struggles. Client reports known mental health diagnoses of: Major depressive, Anxiety, Bipolar, PTSD, and ADHD. Client reports the following mentioned d.o.'s were provided by past psychiatrist Adis Packer; client reports he no longer sees identified MH professional. Client reports past hx of dual IP tx for MH. Per client's report, I have been to every hospital in the [facility] for tx. Client reports last seeking placement this past summer at [facility]. Client denies currently endorsing SI/NSSI/HI. However, client reports experiencing thoughts of SI earlier this am. Client reports thoughts consisted of, things/people would be better off if I was no longer here. Client denies plan. Client reports level of intent 5/10 on how likely he feels he would act on thoughts to harm himself. Resources Reosurces reviewed and given:: Other (Client has agreed to talk with [facility] to discuss SA.) Plan/Disposition Recommended Disposition: Hospitalization (Co-occurring MH/SA tx.) facilities contacted. Plan: At this time, client is requesting to seek dual IP tx for both MH and SA. It is this video games storywriter clinical opinion, client would benefit from co-occurring bed to address, both substance abuse and reported worsening depression symptoms; such as difficulties completing ADLS, pertaining to poor eating/sleep habits. Client has agreed to talk to [facility]. Client will remain in ED until placement is secured and referrals will be sent for IP tx for MH/SA. Client will be reassessed daily by [facility] ES. It should be noted client is requesting to specifically go to . This video games storywriter explained referrals will be sent out to all hospitals in the state of [place], wherever there is a bed available first, is where client will be placed. Client reports he understood. Person reported agreement to plan: Yes Facilities contacted if Applicable [facility] (Pending Review) Not accepted, (Pending review) Other [facility] (Pending Review) Not accepted, (Pending Review) Other [facility] (Pending Review) Not accepted[facility] (Pending Review) [facility], (Pending Review) Other Reports/communication Outcome discussed with: ED/Personnel (SYL Esparza after screening was compelted.)
--- NOTE | 2022-12-12 15:14 | NUR.NOTE ---
pt given crackers and grayson kelley
--- NOTE | 2022-12-12 19:01 | NUR.NOTE ---
Nursing Note: report from ANTONIO Perry. Pt observed lying quietly on stretcher with eyes closed. Awaiting admission bed assignment. CPSO at bedside
--- NOTE | 2022-12-12 22:59 | NUR.NOTE ---
Nursing Note: pt c/o feeling restless, requesting nicotine cartridge and something to help my nerves, pt scored 6 on CIWA scale, medicated per MD order
[2022-12-13] VITALS (89 sets, daily range): BP systolic 98–146; BP diastolic 48–98; PULSE 51–85; RESP 12–26; TEMP 36.8; O2SAT 92–97
--- NOTE | 2022-12-13 09:18 | NUR.NOTE ---
Nursing Note: Methadone dosing confirmed with [facility] clinic. Pt is on 80 mg PO daily.
[2022-12-13] MEDS: hydrOXYzine PAMOATE 25 MG CAP 50 MG PO (09:40)
[2022-12-13] MEDS: buPROPion-XL 150 MG TABCR PO (09:40)
[2022-12-13] MEDS: Loratidine 10 MG TAB PO (09:40)
[2022-12-13] MEDS: FLUoxetine 20 MG CAP 40 MG PO (09:40)
[2022-12-13] MEDS: Methadone Liquid 10 MG/ML 80 MG PO (09:41)
--- NOTE | 2022-12-13 11:05 | CMPROGNOTE_ITS ---
- If Service Date Differs Date of service: 12/13/22 Time of Service: 11:05 Care Management Progress Note 9:30am- talked with ED staff regarding William. Per report, he feels suicidal but does not have a plan. He is interested in support for mental health as well as substance use. 9:40am- CM called [facility] to discuss the plan for William. Lucrecia [facility], asked if he is still on CIWA, as they cannot screen him until he is no longer being monitored for alcohol withdrawal. CM called the ED, who reported that he is no longer requiring CIWA. CM requested documentation that he is now medically cleared. 10:30am- ED called to inform that William is asking to return home. [facility] has been contacted. 11am- [facility] created a safety plan with William, he will be discharged home.
--- NOTE | 2022-12-13 11:40 | PDOC.MHPN2 ---
Date of service: 12/13/22 Time of Service: 11:40 PHQ-9 Over the last 2 weeks, how often have you been bothered by any of the following problems? 1. Little interest or pleasure in doing things: nearly every day 2. Feeling down, depressed, or hopeless: nearly every day 3. Trouble falling or staying asleep, or sleeping too much: nearly every day 4. Feeling tired or having little energy: more than half the days 5. Poor appetite or overeating: nearly every day 6. Feeling bad about yourself - or that you are a failure or have let yourself and your family down: nearly every day 7. Trouble concentrating on things, such as reading the newspaper or watching television: nearly every day 8. Moving or speaking so slowly that other people could have noticed? - Or the opposite - being so fidgety or restless that you have been moving around a lot more than usual: nearly every day 9. Thoughts that you would be better off or of hurting yourself in some way: more than half the days Total score: 25 If you checked off any problems, how difficult have these problems made it for you to do your work, take care of things at home, or get along with other people?: extremely difficult Source: Developed by Drs. Earl Reyes, Colette Lucero, Galen Cadet and colleagues, with an educational von from [employer]. Suicide Severity Rate CSSRS Have you wished you were or wished you could go to sleep and not wake up?: Yes Have you actually had any thoughts of killing yourself?: No CSSRS2 Have you been thinking about how you might do this?: No Have you had these thoughts and had some intention of acting on them?: No Have you started to work out or worked out the details of how to kill yourself? Do you intend to carry out this plan?: No CSSRS3 Have you ever done anything, started to do anything or prepared to do anything to end your life?: No CSSRS4 Was this within the past three months?: No Screening Score Total Score: 2 Screening: Positive Mental Health Emergency Note Release [facility] release signed:: Yes Reason for Visit Client presented on 12.12.22 for evaluation and placement for his worsening anxiety and depression. Client reports, needing help and is requesting to seek dual treatment for both SA and MH. Today the client wanted to leave the hospital and agreed to meet with [facility] to a safety plan prior to discharge. In the last 2 weeks has the pt presented for ES prior to today?: Unknown Client Information Client is: Adult Outpatient Well Housed: No,status: Homeless Non Suicidal Self Injury Current: No History: No Safety Risk/Harm to Self or Others Current Ideation to Harm Self or Others: No Risk: Does risk to harm exist?: No Risk: Low Risk Duty to warn indicated: No Asssessment/Mental Status Appearance: Disheveled Attitude: Cooperative Behavior: Agitated Speech: Soft Affect: Cogruent with mood Mood: Stressed and Irritable Thought process: Goal directed Hallucinations: No Delusions: No Attention: Unremarkable Perception: Not impaired Orientation: Fully orientated Memory: Intact Insight: Good Judgement: Fair Neurovegetative Symptoms Sleep: No change Appetitie: No change Interests: No change Energy: No change Libido: Not applicable Substance Use: ETOH dependence Do you use nicotine?: Yes Have you used substances in the last 7 days?: yes, ETOH Additional Issues: Assaultive/Threatening Behavior: No Medical Concerns: No Client engaged in active self harm w/weapon: No Threatening to run away: No Child reported abuse/neglect: No Voluntarily presenting for services: Yes Domestic violence is a concern: No Extreme Psychosis or extreme behavior is present: No Impression Client is a 42 year old male who is homeless. He reported on 11.14.22 that he had stayed a couple of days with his father and today his sister is picking him up so that he can go to her home. Client reported that he came to [facility] on 11.14.22 because he wanted help with his living, housing and routines. Client reported that he is currently wanting to leave because he wants to drink. He is denying SI and HI self-reporting his risk level to be a 0/10. Client presents as sitting on the edge of his bed looking to the floor and rocking regularly back and forth. Client rubs his arms occasionally and stated that he just don't want to talk to anyone but my therapist Madeleine at [facility]. Client's symptoms are consistent with an alcohol abuse disorder but also likely is self medicating a major depressive disorder. Client agreed to a safety plan which will be scanned into his chart. Resources devonte reviewed and given:: HUNTER Browning and [facility] Plan/Disposition Recommended Disposition: [facility] Services [facility] Services: Other and Therapy. Plan: Client will be discharged and he reported his sister is on her way to pick him up. Person reported agreement to plan: Yes Reports/communication Outcome discussed with: ED/Personnel
== END 2022-12-13 11:11 | disposition home or self-care (01) ==
PROVIDERS: Emergency Provider Nurse Practitioner Family
DX: F32.A Depression, unspecified (principal); F19.10 Other psychoactive substance abuse, uncomplicated; R45.851 Suicidal ideations; Z86.718 Personal history of other venous thrombosis and embolism; Z20.822 Contact with and (suspected) exposure to COVID-19
CPT/HCPCS: 36415; 80053; 80307; 87635; 99285; 80320; 80329; 81003; 85025; 99284

== ENCOUNTER 2023-03-28 17:32 | Emergency (ER) | payer MEDICAID, SELFPAY ==
[2023-03-28 17:34] VITALS: BP 150/83; PULSE 85; RESP 20; TEMP 37.1; O2SAT 98
--- NOTE | 2023-03-28 17:45 | DI.RAD_ITS ---
Exam(s) XR FOOT LT COMPLETE EXAM: XR FOOT LT COMPLETE CLINICAL HISTORY: Swelling, Infection. TECHNIQUE: 2D digital imaging was performed. COMPARISON: No exams were available for comparison FINDINGS: 3 views No evidence of acute fracture or diastasis of the Lisfranc joint. No osseous lesions. No radiopaque foreign body. No obvious degenerative changes. No erosions. IMPRESSION: No acute osseous findings. DATA REPOSITORY: RADIATION DOSE DELIVERED:
--- NOTE | 2023-03-28 17:45 | DI.RAD_ITS ---
Exam(s) XR TIB/FIB LT EXAM: XR TIB/FIB LT CLINICAL HISTORY: Infection, Swelling. TECHNIQUE: 2D digital imaging was performed. COMPARISON: No exams were available for comparison FINDINGS: Two views No evidence of fracture nor dislocation. No radiopaque foreign body. No osseous lesions. IMPRESSION: No significant osseous findings in the tibia and fibula. DATA REPOSITORY: RADIATION DOSE DELIVERED:
--- NOTE | 2023-03-28 17:50 | ED.GENADUL_ITS ---
Discharge Plan Disposition Patient Disposition: Home Condition: Stable Discharge Details Clinical Impression: Cellulitis of left leg Primary Care Provider: None,None ED Provider: Heidy Farmer Home Meds and New Rx's Prescriptions: New doxycycline hyclate 100 mg tablet 100 mg PO BID 10 Days Qty: 20 0RF Rx Instructions: Take 1 tablet by mouth twice daily for the next 10 days No Action methadone 10 MG/ML concentrate 80 mg PO DAILY omeprazole 40 mg Capsule,Delayed Release(Dr/Ec) 40 mg PO DAILY bupropion HCl 300 mg tablet extended release 24 hr 150 mg PO DAILY Patient Comments: TAKE 1 TABLET BY MOUTH EVERY DAY fluoxetine 40 mg capsule 40 mg PO DAILY Patient Comments: TK 2 CS PO QAM hydroxyzine pamoate 50 mg capsule 50 mg PO Q8H PRN PRN Patient Comments: TK 1 C PO Q 4 H PRN loratadine 10 mg tablet 10 mg PO DAILY Patient Comments: TK 1 T PO QD cyanocobalamin (vitamin B-12) [Vitamin B-12] 500 mcg Tablet 1,000 mcg PO DAILY Qty: 30 0RF folic acid 1 mg Tablet 1 mg PO QAM Qty: 30 0RF naloxone [Narcan] 4 mg/actuation spray,non-aerosol 4 mg intranasal Q2-3M PRNQty: 2 0RF Rx Instructions: spray 1 dose into ONE nostril; alternate nostrils w each dose until help arrives Discharge Instructions Instructions: Cellulitis (ED) Additional Instructions: Please take the antibiotics as directed twice daily with yogurt or a probiotic for the next 10 days. You are given the first dose here in the IV. Follow up with primary care provider in 3-5 days. Return to ED sooner if any worsening or concerns. Increase oral fluids. Please take Tylenol or Ibuprofen with food every 4-6 hours as needed for pain and swelling. Medical Decision Making 42-year-old male presents with chief complaint of left lower extremity infection and swelling. Patient states that he noticed a tick to his left inner leg which he tried to remove. Upon examination he does have a scab noted to his left medial ankle which appears chronic with surrounding erythema and some erythema extending proximally to this. He reports body aches denies any fever. He endorses alcohol and marijuana. He does have full body lesions and scabs noted. He has a past medical history of nicotine dependence, pancreatitis, depression, opioid dependence on agonist therapy, alcohol dependence and polysubstance abuse. Work-up ordered including CBC CMP, doxycycline 100 mg IV piggyback. X-ray of foot and tib-fib ordered to rule out foreign body. 1841: Informed by director of staff development that IV is blown, unable to infuse Doxycycline. XR's WNL, No bony abnormality, no soft tissue abnormality. CBC shows white blood cell count of 11.89, neutrophils 9.64 CMP largely within normal limits AST slightly elevated at 66 ALT 65. Which is elevated. Second IV blown per RN report, patient given to go oral doxycycline and a prescription patient is requesting to be discharged. This text was generated using [employer]10 Systemsation system, please disregard any oddities of phrase or misspellings. Medical Records Medical records reviewed: Yes I reviewed the patient's medical records. Lab Data Lab results reviewed: Yes I reviewed the patient's lab results. Labs: Laboratory Tests Range/Units 03/28/23 03/28/23 18:27 18:27 WBC (4.4-10.8) 10^3/uL 11.89 H RBC (4.36-5.78) 10^6/uL 4.67 Hgb (13.5-17.5) g/dL 13.6 Hct (40.0-50.0) % 41.9 MCV (80-95) fL 90 MCH (27.0-33.0) pg 29.1 MCHC (32.0-36.0) % 32.5 RDW (11.8-14.1) % 15.0 H Plt Count (130-400) 10^3/uL 313 MPV (8.0-11.0) fL 8.1 Immature Gran % 0.3 Neutrophils % 81.1 Lymphocytes % 9.6 Monocytes % 7.9 Eosinophils % 0.8 Basophils % 0.3 Nucleated RBC % (0.0-0.3) % 0.0 Absolute Neutrophils (1.2-6.7) 10^3/uL 9.64 H Absolute Lymphocytes (1.2-3.4) 10^3/uL 1.14 L Absolute Monocytes (0.1-0.8) 10^3/uL 0.94 H Absolute Eosinophils (0.0-0.7) 10^3/uL 0.10 Absolute Basophils (0.0-0.2) 10^3/uL 0.04 Sodium (136-145) mmol/L 140 Potassium (3.5-5.1) mmol/L 3.6 Chloride (98-107) mmol/L 102 Carbon Dioxide (21.0-32.0) mmol/L 30.2 Anion Gap (3-11) mmol/L 7.8 BUN (7-18) mg/dL 7 Creatinine (0.70-1.30) mg/dL 0.9 Est GFR (CKD-EPI 2020) (mL/min/1.73m2) 108.68 Glucose (74-106) mg/dL 78 Calcium (8.5-10.1) mg/dL 8.9 Total Bilirubin (0.2-1.0) mg/dL 0.7 AST (15-37) U/L 66 H ALT (16-63) U/L 65 H Alkaline Phosphatase (46-116) U/L 96 Total Protein (6.4-8.2) g/dL 8.2 Albumin (3.4-5.0) g/dL 3.5 HPI General Mode of arrival: ambulatory . Date/Time Provider Initiated Documentation: 03/28/23 17:35 . Limitations to Documentation: no limitations . Information obtained by: patient, RN notes reviewed and old records reviewed . HPI Narrative: 42-year-old male presents with chief complaint of left lower extremity infection and swelling. Patient states that he noticed a tick to his left inner leg which he tried to remove. Upon examination he does have a scab noted to his left medial ankle which appears chronic with surrounding erythema and some erythema extending proximally to this. He reports body aches denies any fever. He endorses alcohol and marijuana. He does have full body lesions and scabs noted. He has a past medical history of nicotine dependence, pancreatitis, depression, opioid dependence on agonist therapy, alcohol dependence and polysubstance abuse. Related Data Home Medications Medication Instructions Recorded Confirmed methadone 10 mg/mL oral concentrate 80 mg PO DAILY 03/31/14 03/28/23 fluoxetine 40 mg capsule 40 mg PO DAILY 10/09/20 03/28/23 hydroxyzine pamoate 50 mg capsule 50 mg PO Q8H PRN PRN 10/09/20 03/28/23 loratadine 10 mg tablet 10 mg PO DAILY 10/09/20 12/12/22 cyanocobalamin (vitamin B-12) 500 1,000 mcg PO DAILY #30 tabs 02/20/22 06/20/22 mcg tablet (Vitamin B-12) folic acid 1 mg tablet 1 mg PO QAM #30 tabs 02/20/22 06/20/22 naloxone 4 mg/actuation nasal 4 mg intranasal Q2-3M PRN #2 ea 03/08/22 12/12/22 spray (Narcan) bupropion HCl 300 mg 24 hr tablet, 150 mg PO DAILY 06/19/22 12/12/22 extended release omeprazole 40 mg capsule,delayed 40 mg PO DAILY 06/19/22 03/28/23 release doxycycline hyclate 100 mg tablet 100 mg PO BID Cellulitis 10 days 03/28/23 #20 tabs Previous Rx's Medication Instructions Recorded cyanocobalamin (vitamin B-12) 500 1,000 mcg PO DAILY #30 tabs 02/20/22 mcg tablet (Vitamin B-12) folic acid 1 mg tablet 1 mg PO QAM #30 tabs 02/20/22 naloxone 4 mg/actuation nasal 4 mg intranasal Q2-3M PRN #2 ea 03/08/22 spray (Narcan) doxycycline hyclate 100 mg tablet 100 mg PO BID Cellulitis 10 days 03/28/23 #20 tabs Allergies Allergy/AdvReac Type Severity Reaction Status Date / Time No Known Allergies Allergy Unverified 03/28/23 17:48 General Stated Complaint: Cellulitis RAVEN: 3 Review of Systems Integumentary/Breasts Skin/Breast: Reports as per HPI, Reports lesions, Reports erythema, Reports skin pain and Reports skin swelling PFSH All Active Problems (Updated 03/28/23 @ 19:23 by Heidy Farmer NP) Cellulitis of left leg (Acute) Nicotine dependence (Acute) Suicidal ideation (Acute) Pancreatitis (Chronic) Depression (Chronic) Opioid dependence on agonist therapy (Acute) Alcohol dependence (Chronic) Polysubstance abuse (Acute) Medical History Acute bronchitis Alcohol withdrawal Bronchospasm Chronic deep vein thrombosis (DVT) Cocaine withdrawal Depression Hepatitis B Hepatitis C History of osteomyelitis Polysubstance abuse Suicide ideation Family History Other Alcohol use disorder Depression Social History Smoking/Tobacco Use Status: Current every day Tobacco Type: cigarettes Smoking risk assessment performed?: Yes Alcohol Intake: current Alcohol Intake frequency: 3 or more drinks per day Alcohol type: beer and hard liquor Drug use: Binges Substance use type: marijuana, crack/cocaine and opiates Details: drinks a case and a half of beer a day and a fifth of vodka. Do you feel safe at home: Yes Do you feel safe in your relationship?: Yes Additional Social history: Currently homeless. Has 13 year old son in [place] that does not live with him. Exam Skin General skin exam: erythema Lesions: lesion noted (Multiple excoriations to face, legs and arms) Wounds: wounds noted Extrem Left lower extremity: foot Details: tenderness, warmth and abrasion medial mid Ankle/foot/toe images: 1. Dark scab With surrounding swelling erythema 2. Erythema Course Vital Signs Vital signs: Vital Signs Temperature 37.1 C 03/28/23 17:34 Pulse 85 03/28/23 17:34 Respiratory Rate 20 03/28/23 17:34 Blood Pressure 150/83 H 03/28/23 17:34 Pulse Oximetry 98 03/28/23 17:34 Temperature 37.1 C 03/28/23 17:34 Temperature Source Oral 03/28/23 17:34 Pulse 85 03/28/23 17:34 Respiratory Rate 20 03/28/23 17:34 Blood Pressure 150/83 H 03/28/23 17:34 Blood Pressure Position Sitting 03/28/23 17:34 Pulse Oximetry 98 03/28/23 17:34 Oxygen Delivery Method Room Air 03/28/23 17:34 Oxygen Flow Rate 0 03/28/23 17:34 Pain Level 10 03/28/23 17:34 PAWSS Have you Been Recently Intoxicated or Drunk Within the Last 30 days?: No Have you Ever Experienced Previous Episodes of Alcohol Withdrawal?: Yes Have you ever Experienced Withdrawal Seizures?: Yes Have you ever Experienced Delirium Tremens(DT)s?: Yes Have you ever undergone Alcohol Rehabilitation Treatment (i.e, inpt ot outpatient treatment programs)?: Yes Have you ever Experienced Blackouts?: Yes Have you ever Combined Alcohol with other Downers within the last 90 days?: Yes Have you ever Combined Alcohol with any other Substance of Abuse during the last 90 days?: Yes Positive Blood Alcohol level on Presentation? [PCS.BAL]: Yes Evidence of Increased Autonomic Activity (i.e. HR>120, tremor, sweating, agitation, nausea)?: Yes Result: 9
[2023-03-28] MEDS: DOXYCYCLINE 100 MG in Normal Saline 100 ML IVPB (18:34)
[2023-03-28 18:35] LABS: Abs Immature Grans 0.03 10^3/uL (0.0-0.06); Absolute Lymphocyte Count 1.14 10^3/uL (1.2-3.4); Absolute Monocyte Count 0.94 10^3/uL (0.1-0.8); Basophils % 0.3; Eosinophils % 0.8; HCT 41.9 % (40.0-50.0); HGB 13.6 g/dL (13.5-17.5); Immature Grans % 0.3; Lymphocytes % 9.6; MCH 29.1 pg (27.0-33.0); MCHC 32.5 % (32.0-36.0); MCV 90 fL (80-95); MPV 8.1 fL (8.0-11.0); Monocytes % 7.9; Neutrophils % 81.1; Platelet Count 313 10^3/uL (130-400); RBC 4.67 10^6/uL (4.36-5.78); WBC 11.89 10^3/uL (4.4-10.8)
[2023-03-28 18:37] LABS: Absolute Basophil Count 0.04 10^3/uL (0.0-0.2); Absolute Neutrophil Count 9.64 10^3/uL (1.2-6.7)
--- NOTE | 2023-03-28 18:46 | DI.VRAD_ITS ---
PROCEDURE INFORMATION: Exam: XR Left Tibia and Fibula Exam date and time: 03/28/2023 6:04 PM Age: 42 years old Clinical indication: Cellulitis; Lower leg; Left; Patient HX: Swelling, infection TECHNIQUE: Imaging protocol: Radiologic exam of the left tibia and fibula. Views: 2 views. COMPARISON: CR XR FOOT LT COMPLETE 03/28/2023 6:00 PM FINDINGS: Bones/joints: There is no evidence of acute fracture.There is no evidence of malalignment or dislocation. Soft tissues: Normal. IMPRESSION: There is no evidence of acute fracture.There is no evidence of malalignment or dislocation. Dictated and Authenticated by: Ayana Holley MD. Ordering:NORMA Moody MD
--- NOTE | 2023-03-28 18:46 | DI.VRAD_ITS ---
PROCEDURE INFORMATION: Exam: XR Left Foot Exam date and time: 03/28/2023 6:00 PM Age: 42 years old Clinical indication: Cellulitis; Foot; Left; Patient HX: Swelling, infection TECHNIQUE: Imaging protocol: Radiologic exam of the left foot. Views: 3 or more views. COMPARISON: CR LEFT FOOT COMPLETE 05/11/2017 1:56 AM FINDINGS: Bones/joints: There is no evidence of acute fracture.There is no evidence of malalignment or dislocation. Soft tissues: Normal. IMPRESSION: There is no evidence of acute fracture.There is no evidence of malalignment or dislocation. Dictated and Authenticated by: Ayana Holley MD. Ordering:NORMA Moody MD
[2023-03-28 18:48] LABS: ALT 65 U/L (16-63); AST 66 U/L (15-37); Albumin 3.5 g/dL (3.4-5.0); Alkaline Phosphatase 96 U/L (46-116); Anion Gap 7.8 mmol/L (3-11); BUN 7 mg/dL (7-18); Bilirubin, Total 0.7 mg/dL (0.2-1.0); CO2 30.2 mmol/L (21.0-32.0); CREATININE 0.9 mg/dL (0.70-1.30); Calcium 8.9 mg/dL (8.5-10.1); Chloride 102 mmol/L (98-107); Estimated GFR 108.68 (mL/min/1.73m2); Glucose 78 mg/dL (74-106); Potassium 3.6 mmol/L (3.5-5.1); Sodium 140 mmol/L (136-145); Total Protein 8.2 g/dL (6.4-8.2)
[2023-03-28] MEDS: Doxycycline Hyclate 100 MG, 2 CAPS/BTL PO (19:41)
--- NOTE | 2023-03-28 19:41 | NUR.NOTE ---
unable to complete doxycycline due to pts inability to stop touching and moving IV. SPD MANAGER Heidy made aware and ok with stopping infusion. pt wanting to leave sating you people are clearly children that work here, I'm going to [place]. p was provided with discharge papers.
--- NOTE | 2023-03-28 19:44 | NUR.NOTE ---
Nursing Note: IV sites no longer functioning, pt threw food across the room, pt refused to sign dc papers
== END 2023-03-28 19:43 | disposition home or self-care (01) ==
PROVIDERS: Emergency Provider Registered Nurse Emergency
DX: S90.862A Insect bite (nonvenomous), left foot, initial encounter (principal); L03.116 Cellulitis of left lower limb; W57.XXXA Bitten or stung by nonvenomous insect and other nonvenomous arthropods, initial encounter
CPT/HCPCS: 36415; 80053; 96365; 96376; 99284; 73590; 73630; 85025

== ENCOUNTER 2023-04-23 12:13 | Emergency (ER) | payer MEDICAID, SELFPAY ==
[2023-04-23 12:23] VITALS: BP 127/82; PULSE 73; RESP 15; O2SAT 94
--- NOTE | 2023-04-23 13:48 | W.ED.GENAD ---
Discharge Plan Discharge Details Chief Complaint: PsychEval Primary Care Provider: Yulia Miller ED Provider: Earl Saucedo Home Meds and New Rx's Prescriptions: No Action methadone 10 MG/ML concentrate 80 mg PO DAILY omeprazole 40 mg Capsule,Delayed Release(Dr/Ec) 40 mg PO DAILY bupropion HCl 300 mg tablet extended release 24 hr 150 mg PO DAILY Patient Comments: TAKE 1 TABLET BY MOUTH EVERY DAY fluoxetine 40 mg capsule 40 mg PO DAILY Patient Comments: TK 2 CS PO QAM hydroxyzine pamoate 50 mg capsule 50 mg PO Q8H PRN PRN Patient Comments: TK 1 C PO Q 4 H PRN loratadine 10 mg tablet 10 mg PO DAILY Patient Comments: No longer taking 04/23/23 CT cyanocobalamin (vitamin B-12) [Vitamin B-12] 500 mcg Tablet 1,000 mcg PO DAILY Qty: 30 0RF folic acid 1 mg Tablet 1 mg PO QAM Qty: 30 0RF Patient Comments: No longer taking 04/23/23 CT naloxone [Narcan] 4 mg/actuation spray,non-aerosol 4 mg intranasal Q2-3M PRNQty: 2 0RF Rx Instructions: spray 1 dose into ONE nostril; alternate nostrils w each dose until help arrives gabapentin 300 mg capsule 300 mg PO TID Patient Comments: TAKE ONE CAPSULE BY MOUTH THREE TIMES A DAY FOR PAIN aripiprazole 2 mg tablet 2 mg PO DAILY Patient Comments: TAKE ONE TABLET BY MOUTH EVERY DAY HPI General Date/Time Provider Initiated Documentation: 04/23/23 12:23. HPI Narrative: 42 year old male presents to the ED with c/o SI. No plan, denies any actual attempt to harm himself. He denies any physical c/o, states he is always in pain, but this is baseline. He also states that he has lost all of his meds. Related Data Home Medications Medication Instructions Recorded Confirmed methadone 10 mg/mL oral concentrate 80 mg PO DAILY 03/31/14 04/23/23 fluoxetine 40 mg capsule 40 mg PO DAILY 10/09/20 04/23/23 hydroxyzine pamoate 50 mg capsule 50 mg PO Q8H PRN PRN 10/09/20 04/23/23 loratadine 10 mg tablet 10 mg PO DAILY 10/09/20 12/12/22 cyanocobalamin (vitamin B-12) 500 1,000 mcg PO DAILY #30 tabs 02/20/22 04/23/23 mcg tablet (Vitamin B-12) folic acid 1 mg tablet 1 mg PO QAM #30 tabs 02/20/22 06/20/22 naloxone 4 mg/actuation nasal 4 mg intranasal Q2-3M PRN #2 ea 03/08/22 04/23/23 spray (Narcan) bupropion HCl 300 mg 24 hr tablet, 150 mg PO DAILY 06/19/22 04/23/23 extended release omeprazole 40 mg capsule,delayed 40 mg PO DAILY 06/19/22 04/23/23 release aripiprazole 2 mg tablet 2 mg PO DAILY 04/23/23 04/23/23 gabapentin 300 mg capsule 300 mg PO TID 04/23/23 04/23/23 Previous Rx's Medication Instructions Recorded cyanocobalamin (vitamin B-12) 500 1,000 mcg PO DAILY #30 tabs 02/20/22 mcg tablet (Vitamin B-12) folic acid 1 mg tablet 1 mg PO QAM #30 tabs 02/20/22 naloxone 4 mg/actuation nasal 4 mg intranasal Q2-3M PRN #2 ea 03/08/22 spray (Narcan) Allergies Allergy/AdvReac Type Severity Reaction Status Date / Time No Known Allergies Allergy Unverified 04/23/23 12:28 General Stated Complaint: PsychEval RAVEN: 2 Review of Systems Narrative: CONST: no fever or chills HEENT: no sore throat SKIN: no rashes PULM: no sob, no cough CARD: no cp, no palpitations ABD: no abd pain EXTR: no swelling NEURO: No focal weakness PSYCH: +SI PFSH All Active Problems (Updated 03/28/23 @ 19:23 by Heidy Farmer NP) Cellulitis of left leg (Acute) Nicotine dependence (Acute) Suicidal ideation (Acute) Pancreatitis (Chronic) Depression (Chronic) Opioid dependence on agonist therapy (Acute) Alcohol dependence (Chronic) Polysubstance abuse (Acute) Medical History Acute bronchitis Alcohol withdrawal Bronchospasm Chronic deep vein thrombosis (DVT) Cocaine withdrawal Depression Hepatitis B Hepatitis C History of osteomyelitis Polysubstance abuse Suicide ideation Family History Other Alcohol use disorder Depression Social History Smoking/Tobacco Use Status: Current every day Tobacco Type: cigarettes Smoking risk assessment performed?: Yes Alcohol Intake: current Alcohol Intake frequency: 3 or more drinks per day Alcohol type: beer and hard liquor Drug use: Binges Substance use type: marijuana, crack/cocaine and opiates Details: drinks a case and a half of beer a day and a fifth of vodka. Do you feel safe at home: Yes Do you feel safe in your relationship?: Yes Additional Social history: Currently homeless. Has 13 year old son in [place] that does not live with him. Exam Narrative Exam Narrative: Const: well appearing, no acute distress HEENT: normocephalic, atraumatic; MMM Lungs: CTA, no wheezing or rales Heart: RRR Ext: well perfused Neuro: non-focal Skin: no rashes Course 42 yo male with c/o SI, no physical c/o. Medically clear for eval by [facility]. Vital Signs Vital signs: Vital Signs Pulse 73 04/23/23 12:23 Respiratory Rate 15 04/23/23 12:23 Blood Pressure 127/82 04/23/23 12:23 Pulse Oximetry 94 04/23/23 12:23 Pulse 73 04/23/23 12:23 Respiratory Rate 15 04/23/23 12:23 Respiratory Effort Normal 04/23/23 12:25 Blood Pressure 127/82 04/23/23 12:23 Blood Pressure Position Sitting 04/23/23 12:23 Pulse Oximetry 94 04/23/23 12:23 Oxygen Delivery Method Room Air 04/23/23 12:23 Oxygen Flow Rate 0 04/23/23 12:23 Pain Level 0 04/23/23 12:23 PAWSS Have you Been Recently Intoxicated or Drunk Within the Last 30 days?: No Have you Ever Experienced Previous Episodes of Alcohol Withdrawal?: No Have you ever Experienced Withdrawal Seizures?: No Have you ever Experienced Delirium Tremens(DT)s?: No Have you ever undergone Alcohol Rehabilitation Treatment (i.e, inpt ot outpatient treatment programs)?: No Have you ever Experienced Blackouts?: No Have you ever Combined Alcohol with other Downers within the last 90 days?: No Have you ever Combined Alcohol with any other Substance of Abuse during the last 90 days?: No Result: 0
[2023-04-23 14:38] LABS: Bilirubin Negative (Negative); Blood Negative (Negative); Clarity Clear (Clear); Glucose Negative (Negative); Ketones Negative (Negative); Leukocyte Esterase Negative (Negative); Nitrite Negative (Negative); Specific Gravity <= 1.005 (1.005-1.025); Urobilinogen 0.2 mg/dL (Up to 0.2)
[2023-04-23 14:58] LABS: *AMPHETAMINES SCREEN URINE Negative (Negative); *BARBITURATES SCREEN URINE Negative (Negative); *BENZODIAZEPINES SCREEN URINE Negative (Negative); Cannabinoids THC Positive (Negative); Cocaine Screen,Urine Positive (Negative); METHADONE URINE SCREEN Positive (Negative); OPIATES URINE SCREEN Negative (Negative)
[2023-04-23 15:01] LABS: Tricyclic Antidepressants Negative (Negative)
--- NOTE | 2023-04-23 15:42 | ED.PROG_ITS ---
Date of service: 04/23/23 Time of Service: 15:42 Medical Decision Making I received signout on this 42-year-old patient in the emergency department in the setting of mental health concerns. He is pending an alcohol level which has been ordered by his previous provider. He reportedly has history of ethanol abu se. He has a urine tox screen positive for methadone cocaine and THC. His urinalysis is nitrite negative and not consistent with hematuria. We will update documentation following evaluation with an [facility]. Patient has not required any involuntary medications or restraints in the ED. 5:34 PM Ethanol consistent with mild intoxication. We will for 2.5 hours based on et hanol elimination rate at 30 mg/dL/h. We will touch base with [facility] at 6:30 PM. 7:56 PM I spoke with Wendy from [facility]. She advised the patient would be voluntary for inpatient placement. I will place him on a CIWA protocol to assess for withdrawal. I met with the patient. He was well-appearing. He had no significant tremor. He requested chlordiazepoxide which I will order 50 mg. He is not due to take any medications until the morning. I will ask nursing to complete a med reconciliation. I have ordered this patient's daily scheduled home medications as listed in our EMR with the exception of his methadone which will need to be verified in the morning tomorrow. If there are any significant discrepancies after nursing med reconciliation patient's meds will need to be adjusted. 8:45 PM Patient's nurse friend verified his methadone dose at 80 mg daily. 11:15 PM Patient reported headache. His CIWA protocol score was 4. Patient may benefit from repeat chlordiazepoxide but will defer this decision to the oncoming overnight provider. I signed patient out to oncoming overnight provider pending monitoring of his CIWA score with possibility of repeat chlordiazepoxide at 2 AM. Sign Out Sign Out Data: Sign Out Comment: SI, waiting for mental health eval and dispo per. Last updated by Earl Saucedo MD at 04/23/23 15:33 Discharge Plan Discharge Details Chief Complaint: PsychEval Primary Care Provider: Yulia Miller ED Provider: Madan Doherty Home Meds and New Rx's Prescriptions: No Action methadone 10 MG/ML concentrate 80 mg PO DAILY omeprazole 40 mg Capsule,Delayed Release(Dr/Ec) 40 mg PO DAILY bupropion HCl 300 mg tablet extended release 24 hr 150 mg PO DAILY Patient Comments: TAKE 1 TABLET BY MOUTH EVERY DAY fluoxetine 40 mg capsule 40 mg PO DAILY Patient Comments: TK 2 CS PO QAM hydroxyzine pamoate 50 mg capsule 25 mg PO Q8H PRN PRN Patient Comments: TK 1 C PO Q 4 H PRN loratadine 10 mg tablet 10 mg PO DAILY Patient Comments: No longer taking 04/23/23 CT cyanocobalamin (vitamin B-12) [Vitamin B-12] 500 mcg Tablet 1,000 mcg PO DAILY Qty: 30 0RF folic acid 1 mg Tablet 1 mg PO QAM Qty: 30 0RF Patient Comments: No longer taking 04/23/23 CT naloxone [Narcan] 4 mg/actuation spray,non-aerosol 4 mg intranasal Q2-3M PRNQty: 2 0RF Rx Instructions: spray 1 dose into ONE nostril; alternate nostrils w each dose until help arrives gabapentin 300 mg capsule 300 mg PO TID Patient Comments: TAKE ONE CAPSULE BY MOUTH THREE TIMES A DAY FOR PAIN aripiprazole 2 mg tablet 2 mg PO DAILY Patient Comments: TAKE ONE TABLET BY MOUTH EVERY DAY
--- NOTE | 2023-04-23 16:06 | CMSP_ITS ---
Date of service: 04/23/23 Time of Service: 16:07 Care Management Safety Plan Status Status: Interim Reason for Wait Reason for Wait: Medical Clearance Safety Plan Safety Plan: Chief Complaint: William presents in the ED for suicidal ideation. He has a history of anxiety, depression and substance use and is well known to [facility] staff. Once medically cleared, William will be assessed by [facility], at which time a plan will be determined. CM will continue to follow. In the interim; please note safety plan below to guide patient care while awaiting further assessment in the ED.? SAFETY PLAN: 1. Will remain on suicide precautions and in paper clothes.? 2. Will remain in room under direct supervision of one-on-one staff at all times provided by [employer], RADHA, BUILDING CONSTRUCTION ESTIMATOR leaflet or newspaper deliverer. 3. May have paper cups, plates, finger foods as well as a cardboard spoon with which to eat meals. 4. Follow [facility] Management of the Admitted Behavioral Health Patient policy. 5. Personal care: Comfort bath system only at this time. 6. Bathroom privileges: with escort in ED. Available in room without limitation on Med/Surg. 6. No personal belongings at this time; per RN discretion. 7. No visitors at this time. 8. Phone contact limited to legal contact at this time at RN discretion. 9. Activities: Music tablet per RN discretion. Med/Surg: Television and remote available at RN discretion. 10. Due to VOLUNTARY status, if patient wishes to leave [facility], staff will contact [facility] Crisis Screener ([phone]) and On-Call [facility] Treatment Specialist ([phone]) as soon as possible. In the event of elopement, notify [facility] Police ([phone]). ? If deemed appropriate for inpatient psychiatric care, safety plan will be established with patient, and care team, to adhere to patient goals, identify restrictions based on behavioral status, address nutrition, and determine allowed personal belongings, tools for hygiene and personal care. As well plan will determine level of activity including ambulation, level of supervision, visitors, and determine privileges based on level of acuity, behaviors and level of engagement by patient.
[2023-04-23 16:24] LABS: ETHANOL BLOOD 75.8 mg/dL (<10)
[2023-04-23] MEDS: chlordiazePOXIDE 25 MG CAP 50 MG PO (20:13)
--- NOTE | 2023-04-23 21:48 | PDOC.MHCN_ITS ---
Date of service: 04/23/23 Time of Service: 19:39 PHQ-9 Over the last 2 weeks, how often have you been bothered by any of the following problems? 1. Little interest or pleasure in doing things: nearly every day 2. Feeling down, depressed, or hopeless: nearly every day 3. Trouble falling or staying asleep, or sleeping too much: nearly every day 4. Feeling tired or having little energy: nearly every day 5. Poor appetite or overeating: nearly every day 6. Feeling bad about yourself - or that you are a failure or have let yourself and your family down: nearly every day 7. Trouble concentrating on things, such as reading the newspaper or watching television: nearly every day 8. Moving or speaking so slowly that other people could have noticed? - Or the opposite - being so fidgety or restless that you have been moving around a lot more than usual: more than half the days 9. Thoughts that you would be better off or of hurting yourself in some way: more than half the days Total score: 25 If you checked off any problems, how difficult have these problems made it for you to do your work, take care of things at home, or get along with other people?: very difficult Source: Developed by Drs. Earl Reyes, Colette Lucero, Galen Cadet and colleagues, with an educational von from [employer]. Suicide Severity Rate CSSRS Have you wished you were or wished you could go to sleep and not wake up?: Yes Have you actually had any thoughts of killing yourself?: Yes CSSRS2 Have you been thinking about how you might do this?: Yes Have you had these thoughts and had some intention of acting on them?: Yes Have you started to work out or worked out the details of how to kill yourself? Do you intend to carry out this plan?: Yes CSSRS3 Have you ever done anything, started to do anything or prepared to do anything to end your life?: No CSSRS4 Was this within the past three months?: No Screening Score Total Score: 4 Screening: Positive Mental Health Emergency Note Release [facility] release signed:: Yes Reason for Visit In the last 2 weeks has the pt presented for ES prior to today?: No Client Information Well Housed: Yes Non Suicidal Self Injury Current: No History: No Safety Risk/Harm to Self or Others Current Ideation to Harm Self or Others: Yes to self. Intent: yes, has intent. Plan: yes,has a plan. History of suicide attempt: No history of suicide attempt reported Risk: Does risk to harm exist?: No Risk: Moderate Risk Duty to warn indicated: No Asssessment/Mental Status Appearance: Disheveled Attitude: Cooperative Behavior: Unremarkable and Hyperactivity Speech: Normal Affect: Cogruent with mood Mood: Stressed and Depressed Thought process: Unremarkable Hallucinations: No evidence Delusions: No evidence Attention: Unremarkable Perception: Not impaired Orientation: Fully orientated Memory: Intact Insight: Good Judgement: Good Neurovegetative Symptoms Sleep: Increase Appetitie: No change Interests: Decrease Energy: Decrease Libido: Not applicable Substance Use: ETOH dependence and Intoxication Drug Issues: Dependence Do you use nicotine?: No Have you used substances in the last 7 days?: yes, Alcohol, Marijuana, coke, and fentanyl Impression Client is William Galo 42-year-old male who presented into [facility] complaining of thoughts of SI. Client was screened and assessed. During the time of the assessment client was reporting thoughts of SI and wanted to go to sleep and not wake up at the time of this assessment, in addition client reported a plan of overdosing on medications in order to by suicide. Client that though t?s of SI have been ongoing for years and they come and go. Client reported that all he wants to do is sleep and it was weak ?no energy ever? per the client?s words. Client scored a 25 out of 27 on the PHQ9. Client reported the use of alcohol marijuana coke and fentanyl usage. Alcohol and marijuana last used before admittance into the ED 04/13/23 and reported that he last used coke 04/22/23 along with fentanyl. At this time client is interested in inpatient facility treatment so client will remain at the hospital until a bed at an inpatient facility opens. Plan/Disposition Recommended Disposition: Hospitalization facilities contacted. Reports/communication Outcome discussed with: ED/Personnel
[2023-04-23] MEDS: Acetaminophen 500 MG TAB 1000 MG PO (23:18)
[2023-04-23] MEDS: Gabapentin 300 MG CAP PO (23:19)
[2023-04-24 07:28] VITALS: BP 143/87; PULSE 56; RESP 18; TEMP 36.5; O2SAT 97
[2023-04-24] MEDS: Omeprazole 20 MG CAPCR 40 MG PO (07:44)
[2023-04-24] MEDS: ARIPiprazole 2 MG TAB PO (08:24)
[2023-04-24] MEDS: Gabapentin 300 MG CAP PO ×3 (08:34→20:15)
[2023-04-24] MEDS: Methadone Liquid 10 MG/ML 80 MG PO (08:34)
[2023-04-24] MEDS: FLUoxetine 20 MG CAP 40 MG PO (08:35)
[2023-04-24] MEDS: buPROPion-XL 150 MG TABCR PO (08:35)
--- NOTE | 2023-04-24 09:34 | W.EDPROG ---
Date of service: 04/24/23 Time of Service: 09:35 Medical Decision Making received pt in sign out, voluntary, pending bed. CIWA by RN 3-4, pt requesting something. He was given Librium yesterday, will give another dose of this. Medical Records Medical records narrative: Seen and eval'd by mental health, may be bed in am. No issues otherwise. Sign Out Sign Out Data: Sign Out Comment: SI, waiting for mental health eval and dispo per. Last updated by Earl Saucedo MD at 04/23/23 15:33 Sign Out Comment: Please reassess patient at 2 AM for possibility of needing repeat 50 mg dose of chlordiazepoxide. Patient is voluntary for mental health placement and medically cleared. Last updated by Madan Doherty MD at 04/24/23 00:02 Sign Out Comment: Patient reassessed this 1 AM and there is no signs of withdrawal I have prescribed Librium as needed if needed. Patient is voluntary for suicidal ideation he has been medically cleared and will be placed accordingly. Last updated by James Benites MD at 04/24/23 06:43 Discharge Plan Discharge Details Chief Complaint: PsychEval Primary Care Provider: Yulia Miller ED Provider: Earl Saucedo Home Meds and New Rx's Prescriptions: No Action methadone 10 MG/ML concentrate 80 mg PO DAILY omeprazole 40 mg Capsule,Delayed Release(Dr/Ec) 40 mg PO DAILY bupropion HCl 300 mg tablet extended release 24 hr 150 mg PO DAILY Patient Comments: TAKE 1 TABLET BY MOUTH EVERY DAY fluoxetine 40 mg capsule 40 mg PO DAILY Patient Comments: TK 2 CS PO QAM hydroxyzine pamoate 50 mg capsule 25 mg PO Q8H PRN PRN Patient Comments: TK 1 C PO Q 4 H PRN loratadine 10 mg tablet 10 mg PO DAILY Patient Comments: No longer taking 04/23/23 CT cyanocobalamin (vitamin B-12) [Vitamin B-12] 500 mcg Tablet 1,000 mcg PO DAILY Qty: 30 0RF folic acid 1 mg Tablet 1 mg PO QAM Qty: 30 0RF Patient Comments: No longer taking 04/23/23 CT naloxone [Narcan] 4 mg/actuation spray,non-aerosol 4 mg intranasal Q2-3M PRNQty: 2 0RF Rx Instructions: spray 1 dose into ONE nostril; alternate nostrils w each dose until help arrives gabapentin 300 mg capsule 300 mg PO TID Patient Comments: TAKE ONE CAPSULE BY MOUTH THREE TIMES A DAY FOR PAIN aripiprazole 2 mg tablet 2 mg PO DAILY Patient Comments: TAKE ONE TABLET BY MOUTH EVERY DAY
[2023-04-24] MEDS: chlordiazePOXIDE 25 MG CAP 50 MG PO (09:38)
--- NOTE | 2023-04-24 10:21 | NUR.NOTE ---
Nursing Note: Report received from discharge specialistANTONIO Conti; designer/writer assumed care of this patient at 1000.
--- NOTE | 2023-04-24 10:26 | NUR.NOTE ---
Nursing Note: Mental health cork tile floor layer Angeline at bedside with patient.
[2023-04-24] MEDS: LORazepam 1 MG TAB PO (12:53)
--- NOTE | 2023-04-24 13:53 | PDOC.MHCN ---
Date of service: 04/24/23 Time of Service: 13:53 PHQ-9 Over the last 2 weeks, how often have you been bothered by any of the following problems? 1. Little interest or pleasure in doing things: nearly every day 2. Feeling down, depressed, or hopeless: nearly every day 3. Trouble falling or staying asleep, or sleeping too much: nearly every day 4. Feeling tired or having little energy: nearly every day 5. Poor appetite or overeating: nearly every day 6. Feeling bad about yourself - or that you are a failure or have let yourself and your family down: nearly every day 7. Trouble concentrating on things, such as reading the newspaper or watching television: nearly every day 8. Moving or speaking so slowly that other people could have noticed? - Or the opposite - being so fidgety or restless that you have been moving around a lot more than usual: more than half the days 9. Thoughts that you would be better off or of hurting yourself in some way: nearly every day Total score: 26 If you checked off any problems, how difficult have these problems made it for you to do your work, take care of things at home, or get along with other people?: extremely difficult PHQ-9 Results: Positive Source: Developed by Drs. Earl Reyes, Colette Lucero, Galen Cadet and colleagues, with an educational von from [employer]. Suicide Severity Rate CSSRS Have you wished you were or wished you could go to sleep and not wake up?: Yes Have you actually had any thoughts of killing yourself?: Yes CSSRS2 Have you been thinking about how you might do this?: Yes Have you had these thoughts and had some intention of acting on them?: Yes Have you started to work out or worked out the details of how to kill yourself? Do you intend to carry out this plan?: No CSSRS3 Have you ever done anything, started to do anything or prepared to do anything to end your life?: No Screening Score Total Score: 4 Screening: Positive Mental Health Emergency Note Release [facility] release signed:: Yes Reason for Visit Client [facility] at [facility] on 04[facility]23[facility]2023 with complaints of suicidal thoughts and seeking inpatient treatment. He was originally assessed by [facility]. In the last 2 weeks has the pt presented for ES prior to today?: Unknown Client Information Client is: New Well Housed: Yes Non Suicidal Self Injury Current: No History: No Safety Risk/Harm to Self or Others Current Ideation to Harm Self or Others: Yes to self. Intent: no, has no intent. Plan: yes,has a plan. History of suicide attempt: No history of suicide attempt reported Risk: Does risk to harm exist?: yes. Access to means: Yes. Types of Means: Other weapons and Medication. Counseling provided: Yes Risk: Moderate Risk Duty to warn indicated: No Asssessment/Mental Status Appearance: Well groomed Attitude: Cooperative Behavior: Repetitive movements Speech: Soft Affect: Flat and Cogruent with mood Mood: Depressed Thought process: Goal directed Hallucinations: No Delusions: No Attention: Unremarkable Perception: Not impaired Orientation: Fully orientated Memory: Intact Insight: Good Judgement: Good Neurovegetative Symptoms Sleep: Increase Appetitie: Increase Interests: Decrease Energy: Decrease Libido: Not applicable Substance Use: ETOH dependence Drug Issues: Dependence Do you use nicotine?: Yes Have you used substances in the last 7 days?: yes, The client reported that he drinks a 1/2 bottle of liquor daily and has for the last 2 years. He also uses THC daily as much as I can. His longest period of sobriety is 5 years. Additional Issues: Assaultive/Threatening Behavior: No Medical Concerns: No Client engaged in active self harm w/weapon: No Threatening to run away: No Child reported abuse/neglect: No Voluntarily presenting for services: Yes Domestic violence is a concern: No Extreme Psychosis or extreme behavior is present: No Impression He reported that he is receiving Librium for withdrawals so medical clearance was questioned. Dr. Saucedo and reported that the client is experiencing mild withdrawal symptoms and would be discharged on a benzo or Librium if he chose to stop drinking and is not in need of a higher level of care in a medical facility. Client is a 42 year old, single male with an address of [facility]. He presents as soft spoken and struggles to keep his legs still. He has good insight and judgement and is seeking a voluntary inpatient treatment placement. He is presenting with symptoms consistent of depression as evidenced by an increase need for sleep, appetite and a decrease in interests and energy. He scored 8 - 3's on the PHQ-9 and 1- 2. Although he has no history of suicide attempts his drinking and access to drugs puts him at a higher risk of acting on his thoughts than if he was not using. Plan/Disposition Recommended Disposition: Hospitalization facilities contacted. Plan: Referrals will be sent and the client will remain at [facility] pending acceptance. He will be assessed daily by [facility] for placement. Person reported agreement to plan: Yes Facilities contacted if Applicable [facility] Not accepted, No bed available [facility] Not accepted, No bed available [facility] Not accepted, No bed available, [facility] Not accepted, No bed available Reports/communication Outcome discussed with: ED/Personnel
[2023-04-24 13:55] VITALS: BP 134/83; PULSE 60; RESP 16; TEMP 36.9; O2SAT 96
--- NOTE | 2023-04-24 21:57 | NUR.NOTE ---
Nursing Note: Report to Karen ALVAREZ
--- NOTE | 2023-04-24 23:56 | ED.PROG_ITS ---
The patient was signed out to me pending psychiatric inpatient voluntary admission. The patient did have several episodes of symptoms consistent with alcohol withdrawal. His CIWA score did elevate to 10 per the nursing staff. He was treated with p.o. Librium 50 mg with good resolution of his symptoms. He is still awaiting placement Date of service: 04/25/23 Time of Service: 09:25 Medical Decision Making Patient was signed out to me pending bed placement. Patient was stable throughout the night. No significant interventions needed aside for voluntary benzodiazepine at patient's request. Patient currently is stable. He is still requesting voluntary transfer. Discussed the case with Mone Banks for her medical practitioner Valnecia abarca. She accepts the patient for transfer. I have extensively reviewed the treatment plan with the patient. I have addressed all patient concerns at this time. I have also discussed the plan with the admitting physician and they agree with the current assessment and plan and have agreed to assume responsibility for the patient. All parties demonstrate verbal understanding and agreement with our assessment and plan at this time. The documentation in this chart was dictated using [employer] dictation software. Please excuse any dictation errors. At time of transfer the patient was reassessed and continued to demonstrate No signs of acute respiratory distress requiring intubation, hemodynamic instability requiring pressor support, or rapidly declining mental status. Medical Records Medical records reviewed: Yes I reviewed the patient's medical records. Lab Data Lab results narrative: I have reviewed the patient's labs and his U tox is positive for cocaine and methadone. His alcohol is slightly elevated Narrative I have received signout. The patient's CIWA score has increased to 10 and we will give him p.o. Librium Sign Out Sign Out Data: Sign Out Comment: SI, waiting for mental health eval and dispo per. Last updated by Earl Saucedo MD at 04/23/23 15:33 Sign Out Comment: Please reassess patient at 2 AM for possibility of needing repeat 50 mg dose of chlordiazepoxide. Patient is voluntary for mental health placement and medically cleared. Last updated by Madan Doherty MD at 04/24/23 00:02 Sign Out Comment: Patient reassessed this 1 AM and there is no signs of withd adrian I have prescribed Librium as needed if needed. Patient is voluntary for suicidal ideation he has been medically cleared and will be placed accordingly. Last updated by James Benites MD at 04/24/23 06:43 Sign Out Comment: The patient remained stable overnight. He did require benzodiazepines for mild alcohol withdrawal symptoms. He stated that Librium was more effective than Ativan. I have signed the patient out to The oncoming provider. Last updated by Eulalia Coleman MD at 04/25/23 08:16 Discharge Plan Disposition Patient Disposition: Psychiatric Hospital/Unit Specific Psychiatric Facility: [facility] Discharge Details Clinical Impression: Depression Primary Care Provider: Yulia Miller ED Provider: Boogie Hanley Home Meds and New Rx's Prescriptions: No Action methadone 10 MG/ML concentrate 80 mg PO DAILY omeprazole 40 mg Capsule,Delayed Release(Dr/Ec) 40 mg PO DAILY bupropion HCl 300 mg tablet extended release 24 hr 150 mg PO DAILY Patient Comments: TAKE 1 TABLET BY MOUTH EVERY DAY fluoxetine 40 mg capsule 40 mg PO DAILY Patient Comments: TK 2 CS PO QAM hydroxyzine pamoate 50 mg capsule 25 mg PO Q8H PRN PRN Patient Comments: TK 1 C PO Q 4 H PRN loratadine 10 mg tablet 10 mg PO DAILY Patient Comments: No longer taking 04/23/23 CT cyanocobalamin (vitamin B-12) [Vitamin B-12] 500 mcg Tablet 1,000 mcg PO DAILY Qty: 30 0RF folic acid 1 mg Tablet 1 mg PO QAM Qty: 30 0RF Patient Comments: No longer taking 04/23/23 CT naloxone [Narcan] 4 mg/actuation spray,non-aerosol 4 mg intranasal Q2-3M PRNQty: 2 0RF Rx Instructions: spray 1 dose into ONE nostril; alternate nostrils w each dose until help arrives gabapentin 300 mg capsule 300 mg PO TID Patient Comments: TAKE ONE CAPSULE BY MOUTH THREE TIMES A DAY FOR PAIN aripiprazole 2 mg tablet 2 mg PO DAILY Patient Comments: TAKE ONE TABLET BY MOUTH EVERY DAY Progress Note The patient is complaining of having withdrawal symptoms and restlessness. He states his withdrawals from alcohol. I have written an additional 50 mg of Librium which the patient states is more effective than Ativan.
[2023-04-25] MEDS: chlordiazePOXIDE 25 MG CAP 50 MG PO ×2 (00:01→07:18)
[2023-04-25] MEDS: LORazepam 1 MG TAB (03:37)
[2023-04-25] MEDS: Omeprazole 20 MG CAPCR 40 MG PO (07:18)
--- NOTE | 2023-04-25 07:53 | CMSP_ITS ---
Date of service: 04/25/23 Time of Service: 07:53 Care Management Safety Plan Status Status: Voluntary Reason for Wait Reason for Wait: Inpatient Admission Safety Plan Safety Plan: Chief Complaint: William presents in the ED for suicidal ideation.?He has a history of anxiety, depression and substance use and is well known to [facility] staff.?William was screened by MASOUD Marcus at [facility] who reports William is seeking inpatient stabilization. VOLUNTARY FOR INPATIENT PSYCHIATRIC STABILIZATION.? Patient is appropriate in all interactions since arriving at [facility]; Pt has demonstrated appropriate coping and communication skills, has articulated his or her needs and concerns and is fully engaged during staff interactions. Safety plan has been established with patient, and care team, to adhere to patient goals, identify restrictions based on behavioral status, address nutrition, and determine allowed personal belongings, tools for hygiene and personal care. Determine level of activity including ambulation, level of supervision, visitors, and determine privileges based on behaviors and level of engagement by pt. SAFETY PLAN: 1. Will remain on suicide precautions. In Paper Clothes 2. Will remain in room under direct supervision of one-on-one staff at all times provided by [employer]; AMANDA GARCIA inspector hot forgings. 3. May have paper cups, plates, finger foods as well as a cardboard spoon with which to eat meals. 4. Follow [facility] Management of the Admitted Behavioral Health Patient policy. 5. Comfort bath system only, shower permitted with escort at RN discretion. 6. No personal belongings-soft items permitted at RN discretion. 7. Visitors-none at this time. 8. Activities: soft cart items approved per RN discretion. 9.? Bathroom privileges with escort in the ED, available in room without limitation on M/S. 10. Phone: contact limited to family at this time, via cordless phone at RN discretion. 11. Due to VOLUNTARY status, if patient wishes to leave [facility], staff will contact [facility] Crisis Screener ([phone]) and On-Call Ballpoint Pen Cartridge Tester ([phone]) as soon as possible. In the event of elopement, notify [facility] Police ([phone]). Patient is currently voluntarily at [facility] and seeking inpatient admission when a bed becomes available. [facility] Frontline Telecommunications Repairer will continue seeking placement. Please contact the Battery Container Tester [employer]um Ballpoint Pen Cartridge Tester ([phone]) and [facility] Telecommunications Repairer ([phone]) for any needed changes in the Safety Plan. Safety plan has been provided to interdepartmental care team.
[2023-04-25] MEDS: Methadone Liquid 10 MG/ML 80 MG PO (08:25)
[2023-04-25] MEDS: Gabapentin 300 MG CAP PO (08:25)
[2023-04-25] MEDS: ARIPiprazole 2 MG TAB PO (08:25)
[2023-04-25] MEDS: FLUoxetine 20 MG CAP 40 MG PO (08:25)
[2023-04-25] MEDS: buPROPion-XL 150 MG TABCR PO (08:25)
--- NOTE | 2023-04-25 09:25 | NUR.NOTE ---
Nursing Note: nurse to nurse given to Emi at [facility].
--- NOTE | 2023-04-25 12:41 | CMPROGNOTE_ITS ---
Date of service: 04/25/23 Time of Service: 12:41 Care Management Progress Note Progress Note Text Progress Note Text: William was accepted at [facility] for voluntary admission this morning. Transportation was coordinated by ED staff with [facility]. When William was on his way to the ambulance, he informed the EMS crew that he was not going to [facility] and ran away. [facility] and [facility] notified.
== END 2023-04-25 11:30 ==
PROVIDERS: Emergency Medicine; Emergency Provider Student in an Organized Health Care Education/Training Program; PCP Nurse Practitioner Family
DX: R45.851 Suicidal ideations (principal); F32.A Depression, unspecified; F41.9 Anxiety disorder, unspecified; F19.10 Other psychoactive substance abuse, uncomplicated; F10.10 Alcohol abuse, uncomplicated; G89.18 Other acute postprocedural pain; F17.210 Nicotine dependence, cigarettes, uncomplicated; Z53.29 Procedure and treatment not carried out because of patient's decision for other reasons
CPT/HCPCS: 36415; 80053; 80307; 85652; 87040; 99285; 80320; 81003; 84703; 85025; 86140; 99284

== ENCOUNTER 2023-04-28 22:40 | Observation (INO) | payer MEDICAID, SELFPAY ==
[2023-04-28 22:48] VITALS: BP 134/72; PULSE 72; RESP 16; TEMP 37.3; O2SAT 99
--- NOTE | 2023-04-28 23:26 | NUR.NOTE ---
Pt provided food and drinks as requested.:
--- NOTE | 2023-04-28 23:30 | ED.GENADUL_ITS ---
Discharge Plan Discharge Details Chief Complaint: Suicide-Atempt Clinical Impression: Suicide ideation, Polysubstance abuse, Opioid use disorder Primary Care Provider: Yulia Miller ED Provider: Carlos Coombs Home Meds and New Rx's Prescriptions: No Action methadone 10 MG/ML concentrate 80 mg PO DAILY omeprazole 40 mg Capsule,Delayed Release(Dr/Ec) 40 mg PO DAILY bupropion HCl 300 mg tablet extended release 24 hr 150 mg PO DAILY Patient Comments: TAKE 1 TABLET BY MOUTH EVERY DAY fluoxetine 40 mg capsule 40 mg PO DAILY Patient Comments: TK 2 CS PO QAM hydroxyzine pamoate 50 mg capsule 25 mg PO Q8H PRN PRN Patient Comments: TK 1 C PO Q 4 H PRN loratadine 10 mg tablet 10 mg PO DAILY Patient Comments: No longer taking 04/23/23 CT cyanocobalamin (vitamin B-12) [Vitamin B-12] 500 mcg Tablet 1,000 mcg PO DAILY Qty: 30 0RF folic acid 1 mg Tablet 1 mg PO QAM Qty: 30 0RF Patient Comments: No longer taking 04/23/23 CT naloxone [Narcan] 4 mg/actuation spray,non-aerosol 4 mg intranasal Q2-3M PRNQty: 2 0RF Rx Instructions: spray 1 dose into ONE nostril; alternate nostrils w each dose until help arrives gabapentin 300 mg capsule 300 mg PO TID Patient Comments: TAKE ONE CAPSULE BY MOUTH THREE TIMES A DAY FOR PAIN aripiprazole 2 mg tablet 2 mg PO DAILY Patient Comments: Pt no longer taking. Medical Decision Making 0108??42-year-old male with history of opioid use disorder, continues to use while on methadone, alcohol use disorder, IV drug use, depression, here with suicidal ideation and recent IV fentanyl use as well as recent alcohol abuse. Patient is not clinically intoxicated. He has no acute medical condition identified on examination. I will send screening labs. Parent safety plan has been initiated and one-to-one patient observer ordered. 235-- Labs reviewed. Patient is currently not exhibiting any signs of withdrawal. Plan to continue to monitor and will treat with Librium as necessary. Patient was medically screened in no acute medical condition identified. Plan for crisis evaluation. [facility] services crisis screener was consulted to evaluate the patient. --Patient was evaluated by crisis screener who will be seeking inpatient voluntary placement. 740 --patient continues to rest comfortably with no signs of withdrawal. Lab Data Lab results reviewed: Yes I reviewed the patient's lab results. Labs: Laboratory Tests Range/Units 04/29/23 04/29/23 04/29/23 00:10 00:10 00:10 WBC (4.4-10.8) 10^3/uL 9.27 RBC (4.36-5.78) 10^6/uL 4.46 Hgb (13.5-17.5) g/dL 13.1 L Hct (40.0-50.0) % 40.3 MCV (80-95) fL 90 MCH (27.0-33.0) pg 29.4 MCHC (32.0-36.0) % 32.5 RDW (11.8-14.1) % 15.4 H Plt Count (130-400) 10^3/uL 190 MPV (8.0-11.0) fL 8.6 Immature Gran % 0.3 Neutrophils % 50.4 Lymphocytes % 35.5 Monocytes % 10.1 Eosinophils % 3.1 Basophils % 0.6 Nucleated RBC % (0.0-0.3) % 0.0 Absolute Neutrophils (1.2-6.7) 10^3/uL 4.66 Absolute Lymphocytes (1.2-3.4) 10^3/uL 3.29 Absolute Monocytes (0.1-0.8) 10^3/uL 0.94 H Absolute Eosinophils (0.0-0.7) 10^3/uL 0.29 Absolute Basophils (0.0-0.2) 10^3/uL 0.06 Sodium (136-145) mmol/L 135 L Potassium (3.5-5.1) mmol/L 4.8 Chloride (98-107) mmol/L 101 Carbon Dioxide (21.0-32.0) mmol/L 28.3 Anion Gap (3-11) mmol/L 5.7 BUN (7-18) mg/dL 10 Creatinine (0.70-1.30) mg/dL 1.2 Est GFR (CKD-EPI 2020) (mL/min/1.73m2) 76.95 Glucose (74-106) mg/dL 77 Calcium (8.5-10.1) mg/dL 8.9 Total Bilirubin (0.2-1.0) mg/dL 0.5 AST (15-37) U/L 100 H ALT (16-63) U/L 96 H Alkaline Phosphatase (46-116) U/L 84 Total Protein (6.4-8.2) g/dL 8.0 Albumin (3.4-5.0) g/dL 3.1 L TSH (0.36-3.74) uIU/mL 3.51 Salicylates (<2.8) mg/dL < 2.8 Urine Opiates Screen (Negative) Urine Methadone Screen (Negative) Acetaminophen (10-30) ug/mL < 2 Ur Barbiturates Screen (Negative) Ur Tricyclics Screen (Negative) Ur Amphetamines Screen (Negative) U Benzodiazepines Scrn (Negative) Urine Cocaine Screen (Negative) Ur THC Screen (Negative) Ethyl Alcohol (<10) mg/dL < 3.0 Range/Units 04/29/23 01:22 WBC (4.4-10.8) 10^3/uL RBC (4.36-5.78) 10^6/uL Hgb (13.5-17.5) g/dL Hct (40.0-50.0) % MCV (80-95) fL MCH (27.0-33.0) pg MCHC (32.0-36.0) % RDW (11.8-14.1) % Plt Count (130-400) 10^3/uL MPV (8.0-11.0) fL Immature Gran % Neutrophils % Lymphocytes % Monocytes % Eosinophils % Basophils % Nucleated RBC % (0.0-0.3) % Absolute Neutrophils (1.2-6.7) 10^3/uL Absolute Lymphocytes (1.2-3.4) 10^3/uL Absolute Monocytes (0.1-0.8) 10^3/uL Absolute Eosinophils (0.0-0.7) 10^3/uL Absolute Basophils (0.0-0.2) 10^3/uL Sodium (136-145) mmol/L Potassium (3.5-5.1) mmol/L Chloride (98-107) mmol/L Carbon Dioxide (21.0-32.0) mmol/L Anion Gap (3-11) mmol/L BUN (7-18) mg/dL Creatinine (0.70-1.30) mg/dL Est GFR (CKD-EPI 2021) (mL/min/1.73m2) Glucose (74-106) mg/dL Calcium (8.5-10.1) mg/dL Total Bilirubin (0.2-1.0) mg/dL AST (15-37) U/L ALT (16-63) U/L Alkaline Phosphatase (46-116) U/L Total Protein (6.4-8.2) g/dL Albumin (3.4-5.0) g/dL TSH (0.36-3.74) uIU/mL Salicylates (<2.8) mg/dL Urine Opiates Screen (Negative) Negative Urine Methadone Screen (Negative) Positive A Acetaminophen (10-30) ug/mL Ur Barbiturates Screen (Negative) Negative Ur Tricyclics Screen (Negative) Negative Ur Amphetamines Screen (Negative) Negative U Benzodiazepines Scrn (Negative) Positive A Urine Cocaine Screen (Negative) Positive A Ur THC Screen (Negative) Positive A Ethyl Alcohol (<10) mg/dL HPI General Mode of arrival: ambulatory . Date/Time Provider Initiated Documentation: 04/28/23 23:08 . Limitations to Documentation: no limitations . Information obtained by: patient . HPI Narrative: 42-year-old male with history of opioid use disorder, hepatitis B, hepatitis C, depression, polysubstance abuse, IV drug use, presents with chief complaint of suicidality. Patient notes worsening depression and thoughts of suicidality. He is considered overdosing. Patient notes that today he was considering overdosing on fentanyl. He used all of the fentanyl that he had around 1800 this evening. Patient also states he drank a case of twisted tea today and last drink was about an hour ago. Patient is here voluntarily seeking treatment. He feels overwhelmed and is motivated to be rehabilitated. Patient does admit to leaving [facility] after similar presentation on 04/23/2023. He states he is willing to stay today and do what ever it takes to get treatment. Patient does state that in the past Librium has been quite helpful at preventing alcohol withdrawal. Regarding his opioid use, he uses methadone daily and does not use IV drugs daily. He states methadone does prevent withdrawal. Patient has no acute physical complaints. He states he suffers from chronic back pain, chronic bilateral lower extremity pain, chronic swelling of his left lower leg. He does note ulcerated wound left distal lower leg that has improved significantly with basic wound care over the past weeks. Related Data Home Medications Medication Instructions Recorded Confirmed methadone 10 mg/mL oral concentrate 80 mg PO DAILY 03/31/14 04/28/23 fluoxetine 40 mg capsule 40 mg PO DAILY 10/09/20 04/28/23 hydroxyzine pamoate 50 mg capsule 25 mg PO Q8H PRN PRN 10/09/20 04/28/23 loratadine 10 mg tablet 10 mg PO DAILY 10/09/20 04/28/23 cyanocobalamin (vitamin B-12) 500 1,000 mcg PO DAILY #30 tabs 02/20/22 04/28/23 mcg tablet (Vitamin B-12) folic acid 1 mg tablet 1 mg PO QAM #30 tabs 02/20/22 04/28/23 naloxone 4 mg/actuation nasal 4 mg intranasal Q2-3M PRN #2 ea 03/08/22 04/28/23 spray (Narcan) bupropion HCl 300 mg 24 hr tablet, 150 mg PO DAILY 06/19/22 04/28/23 extended release omeprazole 40 mg capsule,delayed 40 mg PO DAILY 06/19/22 04/28/23 release aripiprazole 2 mg tablet 2 mg PO DAILY 04/23/23 04/28/23 gabapentin 300 mg capsule 300 mg PO TID 04/23/23 04/28/23 Previous Rx's Medication Instructions Recorded cyanocobalamin (vitamin B-12) 500 1,000 mcg PO DAILY #30 tabs 02/20/22 mcg tablet (Vitamin B-12) folic acid 1 mg tablet 1 mg PO QAM #30 tabs 02/20/22 naloxone 4 mg/actuation nasal 4 mg intranasal Q2-3M PRN #2 ea 03/08/22 spray (Narcan) Allergies Allergy/AdvReac Type Severity Reaction Status Date / Time No Known Allergies Allergy Unverified 04/28/23 23:05 General Stated Complaint: Suicide-Atempt RAVEN: 2 Review of Systems All systems reviewed & are unremarkable except as noted in HPI and below Constitutional Constitutional: Denies fever(s) Integumentary/Breasts Skin/Breast: Reports as per HPI Psychiatric Psychiatric: Reports as per HPI PFSH All Active Problems (Updated 04/29/23 @ 07:43 by Carlos Coombs MD) Suicide ideation (Acute) Polysubstance abuse (Acute) Opioid use disorder (Acute) Nicotine dependence (Acute) Suicidal ideation (Acute) Pancreatitis (Chronic) Depression (Chronic) Opioid dependence on agonist therapy (Acute) Alcohol dependence (Chronic) Polysubstance abuse (Acute) Medical History Acute bronchitis Alcohol withdrawal Bronchospasm Chronic deep vein thrombosis (DVT) Cocaine withdrawal Depression Hepatitis B Hepatitis C History of osteomyelitis Polysubstance abuse Suicide ideation Family History Other Alcohol use disorder Depression Social History Smoking/Tobacco Use Status: Current every day Tobacco Type: cigarettes Smoking risk assessment performed?: Yes Alcohol Intake: current Alcohol Intake frequency: 3 or more drinks per day Alcohol type: beer and hard liquor Drug use: Daily Substance use type: marijuana, crack/cocaine, heroin, opiates, painkillers, IV drugs, methamphetamine and prescription drug Details: drinks a case and a half of beer a day and a fifth of vodka. Housing: homeless Do you feel safe at home: Yes Do you feel safe in your relationship?: Yes Additional Social history: Currently homeless. [facility] 13 [facility] not live with him. Exam Const General: cooperative HENMT Head: atraumatic Mouth: moist mucous membranes Eyes Conjunctivae: normal conjunctivae Sclera: normal sclerae Neck Neck: trachea midline and supple Resp Auscultation: clear to auscultation bilaterally, no rales, no rhonchi and no wheezes Cardio Rate: regular rate and not tachycardic Rhythm: regular rhythm GI Palpation: soft, not firm, no guarding, no masses, not rigid and nontender Skin General skin exam: no erythema and no induration Wounds: wounds noted (nickel sized shallow ulcer with smaller adjancet ulcer distal RLE) Neuro General: patient alert, patient awake, patient oriented x3 and tone normal Extrem General: edema Laterality: left (1+) Psych Appearance: grossly normal Mental Status: mental status grossly normal and other (Depressed) Speech and Movement: speech and movement normal Mood: other (Depressed) Attitude: cooperative Thought Process: normal Thought Content: suicidality Insight: insight good Course Vital Signs Vital signs: Vital Signs Temperature 37.3 C 04/28/23 22:48 Pulse 72 04/28/23 22:48 Respiratory Rate 16 04/28/23 22:48 Blood Pressure 134/72 04/28/23 22:48 Pulse Oximetry 99 04/28/23 22:48 Temperature 37.3 C 04/28/23 22:48 Temperature Source Oral 04/28/23 22:48 Pulse 72 04/28/23 22:48 Respiratory Rate 16 04/28/23 22:48 Respiratory Effort Normal 04/28/23 22:57 Blood Pressure 134/72 04/28/23 22:48 Blood Pressure Position Sitting 04/28/23 22:48 Pulse Oximetry 99 04/28/23 22:48 Oxygen Delivery Method Room Air 04/28/23 22:48 Oxygen Flow Rate 0 04/28/23 22:48 Pain Level 8 04/28/23 22:48 PAWSS Have you Been Recently Intoxicated or Drunk Within the Last 30 days?: Yes Have you Ever Experienced Previous Episodes of Alcohol Withdrawal?: Yes Have you ever Experienced Withdrawal Seizures?: Yes Have you ever Experienced Delirium Tremens(DT)s?: Yes Have you ever undergone Alcohol Rehabilitation Treatment (i.e, inpt ot outpatient treatment programs)?: Yes Have you ever Experienced Blackouts?: Yes Have you ever Combined Alcohol with other Downers within the last 90 days?: Yes Have you ever Combined Alcohol with any other Substance of Abuse during the last 90 days?: Yes Positive Blood Alcohol level on Presentation? [PCS.BAL]: Yes Evidence of Increased Autonomic Activity (i.e. HR>120, tremor, sweating, agitation, nausea)?: No Result: 9
[2023-04-29 00:19] LABS: Abs Immature Grans 0.03 10^3/uL (0.0-0.06); Absolute Basophil Count 0.06 10^3/uL (0.0-0.2); Absolute Eosinophil Count 0.29 10^3/uL (0.0-0.7); Absolute Lymphocyte Count 3.29 10^3/uL (1.2-3.4); Absolute Monocyte Count 0.94 10^3/uL (0.1-0.8); Absolute Neutrophil Count 4.66 10^3/uL (1.2-6.7); Basophils % 0.6; Eosinophils % 3.1; HCT 40.3 % (40.0-50.0); HGB 13.1 g/dL (13.5-17.5); Immature Grans % 0.3; Lymphocytes % 35.5; MCH 29.4 pg (27.0-33.0); MCHC 32.5 % (32.0-36.0); MCV 90 fL (80-95); MPV 8.6 fL (8.0-11.0); Monocytes % 10.1; Neutrophils % 50.4; Platelet Count 190 10^3/uL (130-400); RBC 4.46 10^6/uL (4.36-5.78); RDW 15.4 % (11.8-14.1); RDW-SD 50.5 fL; WBC 9.27 10^3/uL (4.4-10.8)
[2023-04-29 00:39] LABS: Acetaminophen < 2 ug/mL (10-30); Salicylate < 2.8 mg/dL (<2.8)
[2023-04-29 00:41] LABS: ALT 96 U/L (16-63); AST 100 U/L (15-37); Albumin 3.1 g/dL (3.4-5.0); Alkaline Phosphatase 84 U/L (46-116); Anion Gap 5.7 mmol/L (3-11); BUN 10 mg/dL (7-18); Bilirubin, Total 0.5 mg/dL (0.2-1.0); CO2 28.3 mmol/L (21.0-32.0); CREATININE 1.2 mg/dL (0.70-1.30); Calcium 8.9 mg/dL (8.5-10.1); Chloride 101 mmol/L (98-107); Estimated GFR 76.95 (mL/min/1.73m2); Glucose 77 mg/dL (74-106); Potassium 4.8 mmol/L (3.5-5.1); Sodium 135 mmol/L (136-145); TSH (W/Ref FT4) 3.51 uIU/mL (0.36-3.74)
[2023-04-29 00:45] LABS: ETHANOL BLOOD < 3.0 mg/dL (<10)
[2023-04-29 01:40] LABS: *AMPHETAMINES SCREEN URINE Negative (Negative); *BARBITURATES SCREEN URINE Negative (Negative); *BENZODIAZEPINES SCREEN URINE Positive (Negative); Cannabinoids THC Positive (Negative); Cocaine Screen,Urine Positive (Negative); METHADONE URINE SCREEN Positive (Negative); OPIATES URINE SCREEN Negative (Negative)
[2023-04-29 01:42] LABS: Tricyclic Antidepressants Negative (Negative)
[2023-04-29] MEDS: Methadone Liquid 10 MG/ML 80 MG PO (08:05)
[2023-04-29] MEDS: Omeprazole 20 MG CAPCR PO (08:05)
[2023-04-29] MEDS: Gabapentin 300 MG CAP PO ×3 (08:05→20:11)
[2023-04-29] MEDS: FLUoxetine 20 MG CAP 40 MG PO (08:05)
[2023-04-29] MEDS: buPROPion 75 MG TAB 150 MG PO (08:05)
[2023-04-29] MEDS: ARIPiprazole 2 MG TAB PO (08:05)
[2023-04-29] MEDS: chlordiazePOXIDE 25 MG CAP 50 MG PO (08:19)
[2023-04-29] MEDS: hydrOXYzine PAMOATE 25 MG CAP PO (08:19)
--- NOTE | 2023-04-29 09:49 | W.EDPROG ---
Date of service: 04/29/23 Time of Service: 09:51 Medical Decision Making patient stable, states he feels anxious and that he feels like he is withdrawing, no tachycardia or significant hypertension. No tremors, he does abuse alcohol frequently will give a dose of librium, he also takes hydroxyzine as needed so this as been ordered as well. PT still seeking voluntary placement, will continue to observe until disposition made. Sign Out Sign Out Data: Sign Out Comment: Patient awaiting voluntary psych placement. Continue to monitor for alcohol withdrawal - he has done well with librium in the past. Last updated by Carlos Coombs MD at 04/29/23 07:45 Discharge Plan Discharge Details Chief Complaint: Suicide-Atempt Clinical Impression: Suicide ideation, Polysubstance abuse, Opioid use disorder Primary Care Provider: Yulia Miller ED Provider: Regino Del Toro Home Meds and New Rx's Prescriptions: No Action methadone 10 MG/ML concentrate 80 mg PO DAILY omeprazole 40 mg Capsule,Delayed Release(Dr/Ec) 40 mg PO DAILY bupropion HCl 300 mg tablet extended release 24 hr 150 mg PO DAILY Patient Comments: TAKE 1 TABLET BY MOUTH EVERY DAY fluoxetine 40 mg capsule 40 mg PO DAILY Patient Comments: TK 2 CS PO QAM hydroxyzine pamoate 50 mg capsule 25 mg PO Q8H PRN PRN Patient Comments: TK 1 C PO Q 4 H PRN loratadine 10 mg tablet 10 mg PO DAILY Patient Comments: No longer taking 04/23/23 CT cyanocobalamin (vitamin B-12) [Vitamin B-12] 500 mcg Tablet 1,000 mcg PO DAILY Qty: 30 0RF folic acid 1 mg Tablet 1 mg PO QAM Qty: 30 0RF Patient Comments: No longer taking 04/23/23 CT naloxone [Narcan] 4 mg/actuation spray,non-aerosol 4 mg intranasal Q2-3M PRNQty: 2 0RF Rx Instructions: spray 1 dose into ONE nostril; alternate nostrils w each dose until help arrives gabapentin 300 mg capsule 300 mg PO TID Patient Comments: TAKE ONE CAPSULE BY MOUTH THREE TIMES A DAY FOR PAIN aripiprazole 2 mg tablet 2 mg PO DAILY Patient Comments: Pt no longer taking.
--- NOTE | 2023-04-29 11:29 | PDOC.CMSAFE ---
Date of service: 04/29/23 Time of Service: 11:29 Care Management Safety Plan Status Status: Voluntary Reason for Wait Reason for Wait: Inpatient Admission Safety Plan Safety Plan: Chief Complaint: William presents in the ED for a suicide attempt.?He has a history of anxiety, depression and substance use and is well known to [facility] staff.?He stated that he used all of the fentanyl that he had last night, and he stated that he drank a case of twisted tea yesterday. His alcohol screen was negative (<3) upon arrival to the ED; he is being monitored for withdrawal symptoms. He stated that he is overwhelmed and motivated to go to treatment, as he recently had a bed offer and chose to leave once transport arrived. William was screened by MASOUD Marcus at [facility] who reports William is seeking inpatient stabilization. VOLUNTARY FOR INPATIENT PSYCHIATRIC STABILIZATION.? Patient is appropriate in all interactions since arriving at [facility]; Pt has demonstrated appropriate coping and communication skills, has articulated his or her needs and concerns and is fully engaged during staff interactions. Safety plan has been established with patient, and care team, to adhere to patient goals, identify restrictions based on behavioral status, address nutrition, and determine allowed personal belongings, tools for hygiene and personal care. Determine level of activity including ambulation, level of supervision, visitors, and determine privileges based on behaviors and level of engagement by pt. SAFETY PLAN: 1. Will remain on suicide precautions. In Paper Clothes 2. Will remain in room under direct supervision of one-on-one staff at all times provided by [employer]; RADHA, SPORTS BOOK SERVER mechanical operator. 3. May have paper cups, plates, finger foods as well as a cardboard spoon with which to eat meals. 4. Follow [facility] Management of the Admitted Behavioral Health Patient policy. 5. Comfort bath system only, shower permitted with escort at RN discretion. 6. No personal belongings-soft items permitted at RN discretion. 7. Visitors-none at this time. 8. Activities: soft cart items approved per RN discretion. 9.? Bathroom privileges with escort in the ED, available in room without limitation on M/S. 10. Phone: contact limited to family at this time, via cordless phone at RN discretion. 11. Due to VOLUNTARY status, if patient wishes to leave [facility], staff will contact [facility] Crisis Screener ([phone]) and On-Call [employer] Dashboard Developer ([phone]) as soon as possible. In the event of elopement, notify [facility] Police ([phone]). Patient is currently voluntarily at [facility] and seeking inpatient admission when a bed becomes available. [facility] Frontline Apparel Manager will continue seeking placement. Please contact the Talent Acquisition Director [employer] Dashboard Developer ([phone]) and [facility] Apparel Manager ([phone]) for any needed changes in the Safety Plan. Safety plan has been provided to interdepartmental care team.
--- NOTE | 2023-04-29 12:11 | PDOC.MHPN2 ---
Date of service: 04/29/23 Time of Service: 12:11 Mental Health Emergency Note Release [facility] release signed:: Yes Reason for Visit Client presented to the ED last night due to complaints of SI with the intent to overdose. The client was accepted to on 04.25.23 for voluntary placement however, bolted from EMT's when he was about to be transported. In the last 2 weeks has the pt presented for ES prior to today?: Yes, presented at [facility] ED Client Information Client is: New Well Housed: Yes Non Suicidal Self Injury Current: No History: No Safety Risk/Harm to Self or Others Current Ideation to Harm Self or Others: Yes to self. Intent: yes, has intent. Plan: yes,has a plan. History of suicide attempt: No history of suicide attempt reported Risk: Does risk to harm exist?: yes. Access to means: No. Risk: Moderate Risk Duty to warn indicated: No Asssessment/Mental Status Appearance: Disheveled Attitude: Cooperative Behavior: Repetitive movements Speech: Soft Affect: Cogruent with mood Mood: Depressed and Anxious Thought process: Goal directed Hallucinations: No Delusions: No Attention: Unremarkable Perception: Not impaired Orientation: Fully orientated Memory: Intact Insight: Fair Judgement: Fair Impression Client is a 42 year old, single, male who resides in [facility]. He is unemployed and seeking to gain disability. He has a long history of ETOH abuse currently and a longer hx of drug abuse. The client, presents today lying in bed with his legs receptively moving up and down. He states I wanna get some help. We talked about his last admission and why he left [facility] when he was about to go to . He responded that he has a trauma response to being strapped in from his time in half-way. We discussed that the straps were only for his safety should they get in an accident and that we need to use whatever means we have to get him to treatment. The client reported he was more angry and depressed on 04.28 but states he is more depressed today. He denied thoughts to harm himself today but stated if he left again he would likely have them again. He denied HI. He reported eating a full breakfast this am. The client reported that the last 3-4 nights he has slept terrible. He keeps reminding himself that this situation is not going to last forever. I've done it before and I will do it again. He would like to use the phone to call his family. Plan/Disposition Recommended Disposition: Hospitalization facilities contacted. Plan: The client will remain at [facility] and be assessed daily pending acceptance from a psychiatric hospital.? ? Person reported agreement to plan: Yes Facilities contacted if Applicable [facility] Not accepted, Other [facility] Not accepted, Only accepting in house referrals [facility] Not accepted, Other, [facility] Not accepted, Medical reasons Reports/communication Outcome discussed with: ED/Personnel
[2023-04-29] MEDS: Acetaminophen 500 MG TAB 1000 MG PO (12:29)
--- NOTE | 2023-04-29 17:49 | ED.PROG_ITS ---
Date of service: 04/29/23 Time of Service: 17:49 Medical Decision Making pt stable, we now have more beds upstairs to admit the patient to, will discuss with the hospitalist Sign Out Sign Out Data: Sign Out Comment: Patient awaiting voluntary psych placement. Continue to monitor for alcohol withdrawal - he has done well with librium in the past. Last updated by Carlos Coombs MD at 04/29/23 07:45 Discharge Plan Disposition Patient Disposition: Admit to [facility] Condition: Stable Discharge Details Chief Complaint: Suicide-Atempt Clinical Impression: Suicide ideation, Polysubstance abuse, Opioid use disorder Primary Care Provider: Yulia Miller ED Provider: Regino Del Toro Home Meds and New Rx's Prescriptions: No Action methadone 10 MG/ML concentrate 80 mg PO DAILY omeprazole 40 mg Capsule,Delayed Release(Dr/Ec) 40 mg PO DAILY bupropion HCl 300 mg tablet extended release 24 hr 150 mg PO DAILY Patient Comments: TAKE 1 TABLET BY MOUTH EVERY DAY fluoxetine 40 mg capsule 40 mg PO DAILY Patient Comments: TK 2 CS PO QAM hydroxyzine pamoate 50 mg capsule 25 mg PO Q8H PRN PRN Patient Comments: TK 1 C PO Q 4 H PRN loratadine 10 mg tablet 10 mg PO DAILY Patient Comments: No longer taking 04/23/23 CT cyanocobalamin (vitamin B-12) [Vitamin B-12] 500 mcg Tablet 1,000 mcg PO DAILY Qty: 30 0RF folic acid 1 mg Tablet 1 mg PO QAM Qty: 30 0RF Patient Comments: No longer taking 04/23/23 CT naloxone [Narcan] 4 mg/actuation spray,non-aerosol 4 mg intranasal Q2-3M PRNQty: 2 0RF Rx Instructions: spray 1 dose into ONE nostril; alternate nostrils w each dose until help arrives gabapentin 300 mg capsule 300 mg PO TID Patient Comments: TAKE ONE CAPSULE BY MOUTH THREE TIMES A DAY FOR PAIN aripiprazole 2 mg tablet 2 mg PO DAILY Patient Comments: Pt no longer taking.
--- NOTE | 2023-04-29 18:50 | HPE_ITS ---
Date of service: 04/29/23 Time of Service: 18:50 Assessment and Plan Assessment and plan (1) Suicide ideation: Status: Acute Assessment and plan: Suicidal ideation/depression/anxiety: will continue usual Abilify, Prozac and Buproprion. Will also, for now, use scheduled low dose Librium to preempt wit mellawal,m in addition to oprn Atarax EtOH: as above. CIWA, with scheduled Librium Opiate abuse: usual Methadone Tobacco: prn Nicotrol History of Present Illness History of Present Illness Chief Complaint: SI Narrative: Patient is a 42 male with h/o substance abuse, EtOH abuse, depression and anxiety -- here with suicidal ideation. Has been here now for 20 hours, has been medically cleared and is admitted voluntarily pending placement. Has has received single doses of Atarax and Librium some 11 hours ago for anxiety but has otherwise not been scoring on CIWA. I was asked to evaluate for admission. Other than feeling somewhat anxious patient states he feels safe. Review of Systems Narrative: per HPI PFSH All Active Problems Suicide ideation (Acute) Polysubstance abuse (Acute) Opioid use disorder (Acute) Nicotine dependence (Acute) Suicidal ideation (Acute) Pancreatitis (Chronic) Depression (Chronic) Opioid dependence on agonist therapy (Acute) Alcohol dependence (Chronic) Polysubstance abuse (Acute) Medical History Acute bronchitis Alcohol withdrawal Bronchospasm Chronic deep vein thrombosis (DVT) Cocaine withdrawal Depression Hepatitis B Hepatitis C History of osteomyelitis Polysubstance abuse Suicide ideation Family History Other Alcohol use disorder Depression Social History Smoking/Tobacco Use Status: Current every day Tobacco Type: cigarettes Smoking risk assessment performed?: Yes Alcohol Intake: current Alcohol Intake frequency: 3 or more drinks per day Alcohol type: beer and hard liquor Drug use: Daily Substance use type: marijuana, crack/cocaine, heroin, opiates, painkillers, IV drugs, methamphetamine and prescription drug Details: drinks a case and a half of beer a day and a fifth of vodka. Housing: homeless Do you feel safe at home: Yes Do you feel safe in your relationship?: Yes Additional Social history: Currently homeless. Has 13 year old son in [facility] that does not live with him. Meds Allergies and Home Medications Allergies Allergy/AdvReac Type Severity Reaction Status Date / Time No Known Allergies Allergy Unverified 04/28/23 23:05 Home Medications Medication Instructions Recorded Confirmed Type methadone 10 mg/mL oral concentrate 80 mg PO DAILY 03/31/14 04/28/23 History fluoxetine 40 mg capsule 40 mg PO DAILY 10/09/20 04/28/23 History hydroxyzine pamoate 50 mg capsule 25 mg PO Q8H PRN PRN 10/09/20 04/28/23 History loratadine 10 mg tablet 10 mg PO DAILY 10/09/20 04/28/23 History cyanocobalamin (vitamin B-12) 500 1,000 mcg PO DAILY #30 tabs 02/20/22 04/28/23 Rx mcg tablet (Vitamin B-12) folic acid 1 mg tablet 1 mg PO QAM #30 tabs 02/20/22 04/28/23 Rx naloxone 4 mg/actuation nasal 4 mg intranasal Q2-3M PRN #2 ea 03/08/22 04/28/23 Rx spray (Narcan) bupropion HCl 300 mg 24 hr tablet, 150 mg PO DAILY 06/19/22 04/28/23 History extended release omeprazole 40 mg capsule,delayed 40 mg PO DAILY 06/19/22 04/28/23 History release aripiprazole 2 mg tablet 2 mg PO DAILY 04/23/23 04/28/23 History gabapentin 300 mg capsule 300 mg PO TID 04/23/23 04/28/23 History Exam Narrative Exam Narrative: 134/72, 72, 37.3, 16, 99% RA. HEENT atraumatic; neck supple; lungs clear; heart RRR; abdomen soft and NT; extremities w/o edema, scattered scabs; neuro x3, lucid, mild rest tremor, moves all 4s Results Labs 04/29/23 00:10 04/29/23 00:10 Labs: Laboratory Results - last 24 hr 04/29/23 04/29/23 04/29/23 00:10 00:10 00:10 WBC 9.27 RBC 4.46 Hgb 13.1 L Hct 40.3 MCV 90 MCH 29.4 MCHC 32.5 RDW 15.4 H Plt Count 190 MPV 8.6 Immature Gran % 0.3 Neutrophils % 50.4 Lymphocytes % 35.5 Monocytes % 10.1 Eosinophils % 3.1 Basophils % 0.6 Nucleated RBC % 0.0 Absolute Neutrophils 4.66 Absolute Lymphocytes 3.29 Absolute Monocytes 0.94 H Absolute Eosinophils 0.29 Absolute Basophils 0.06 Sodium 135 L Potassium 4.8 Chloride 101 Carbon Dioxide 28.3 Anion Gap 5.7 BUN 10 Creatinine 1.2 Est GFR (CKD-EPI 2020) 76.95 Glucose 77 Calcium 8.9 Total Bilirubin 0.5 AST 100 H ALT 96 H Alkaline Phosphatase 84 Total Protein 8.0 Albumin 3.1 L TSH 3.51 Salicylates < 2.8 Urine Opiates Screen Urine Methadone Screen Acetaminophen < 2 Ur Barbiturates Screen Ur Tricyclics Screen Ur Amphetamines Screen U Benzodiazepines Scrn Urine Cocaine Screen Ur THC Screen Ethyl Alcohol < 3.0 04/29/23 01:22 WBC RBC Hgb Hct MCV MCH MCHC RDW Plt Count MPV Immature Gran % Neutrophils % Lymphocytes % Monocytes % Eosinophils % Basophils % Nucleated RBC % Absolute Neutrophils Absolute Lymphocytes Absolute Monocytes Absolute Eosinophils Absolute Basophils Sodium Potassium Chloride Carbon Dioxide Anion Gap BUN Creatinine Est GFR (CKD-EPI 2020) Glucose Calcium Total Bilirubin AST ALT Alkaline Phosphatase Total Protein Albumin TSH Salicylates Urine Opiates Screen Negative Urine Methadone Screen Positive A Acetaminophen Ur Barbiturates Screen Negative Ur Tricyclics Screen Negative Ur Amphetamines Screen Negative U Benzodiazepines Scrn Positive A Urine Cocaine Screen Positive A Ur THC Screen Positive A Ethyl Alcohol Last Vital Signs Temp 37.3 C 04/28/23 22:48 Pulse 72 04/28/23 22:48 Resp 16 04/28/23 22:48 BP 134/72 04/28/23 22:48 Pulse Ox 99 04/28/23 22:48 PAWSS Have you Been Recently Intoxicated or Drunk Within the Last 30 days?: Yes Have you Ever Experienced Previous Episodes of Alcohol Withdrawal?: Yes Have you ever Experienced Withdrawal Seizures?: Yes Have you ever Experienced Delirium Tremens(DT)s?: Yes Have you ever undergone Alcohol Rehabilitation Treatment (i.e, inpt ot outpatient treatment programs)?: Yes Have you ever Experienced Blackouts?: Yes Have you ever Combined Alcohol with other Downers within the last 90 days?: Yes Have you ever Combined Alcohol with any other Substance of Abuse during the last 90 days?: Yes Positive Blood Alcohol level on Presentation? [PCS.BAL]: Yes Evidence of Increased Autonomic Activity (i.e. HR>120, tremor, sweating, agitation, nausea)?: No Result: 9 Time Spent Time spent with Patient: <40 minutes Time was spent: preparing to see the patient(eg.review tests), obtaining and/or reviewing separately otained hiistory, ordering medications,tests, procedures and indepentently interpreting results
[2023-04-29 20:05] VITALS: BP 108/67; PULSE 49; RESP 24; TEMP 35.7; O2SAT 97
[2023-04-29] MEDS: chlordiazePOXIDE 25 MG CAP PO (20:16)
[2023-04-29] MEDS: Acetaminophen 325 MG TAB 650 MG PO (21:34)
[2023-04-30 03:01] VITALS: BP 98/63; PULSE 55; RESP 20; TEMP 36.4; O2SAT 96
[2023-04-30] MEDS: Acetaminophen 325 MG TAB 650 MG PO (06:24)
[2023-04-30 07:12] VITALS: BP 119/73; PULSE 58; RESP 17; TEMP 36.7; O2SAT 97
[2023-04-30 08:10] VITALS: O2SAT 97
[2023-04-30] MEDS: ARIPiprazole 2 MG TAB PO (08:15)
[2023-04-30] MEDS: Gabapentin 300 MG CAP PO ×2 (08:15→13:23)
[2023-04-30] MEDS: Omeprazole 20 MG CAPCR PO (08:15)
[2023-04-30] MEDS: FLUoxetine 20 MG CAP 40 MG PO (08:15)
[2023-04-30] MEDS: buPROPion 75 MG TAB 150 MG PO (08:15)
[2023-04-30] MEDS: chlordiazePOXIDE 25 MG CAP PO ×2 (08:15→13:23)
[2023-04-30] MEDS: Methadone Liquid 10 MG/ML 80 MG PO (08:16)
--- NOTE | 2023-04-30 10:23 | DSE_ITS ---
Date of service: 04/30/23 Time of Service: 10:23 DS: Diagnosis Discharge Diagnosis (1) Suicide ideation: Status: Acute Discharge Plan Disposition Patient Disposition: Psychiatric Hospital/Unit Specific Psychiatric Facility: [facility] Condition: Stable Discharge Details Reason For Visit: Suicide Ideation Admit Date/Time: 04/29/23 19:03 Admit Provider: Leon Pickard Attending Provider: Leno Pickard Primary Care Provider: Yulia Miller Hospital Course Hospital Course: Patient is a 42 male with history substance abuse, alcohol abuse, depression and anxiety presented to the emergency department with suicidal ideation. He has been medically cleared and was admitted voluntarily pending placement. Has has received single doses of Atarax and Librium some 11 hours prior to arrival to the floor for anxiety but has otherwise not been scoring on CIWA. Overnight he has remained medically stable with no behavioral issues or evidence of withdrawal. He has been accepted at [facility] and is being transported by [facility]. Of note, he eloped on arrival to [facility] last week. discharge discussed with DR [facility] Meds and New Rx's Prescriptions: Continued methadone 10 MG/ML concentrate 80 mg PO DAILY omeprazole 40 mg Capsule,Delayed Release(Dr/Ec) 40 mg PO DAILY bupropion HCl 300 mg tablet extended release 24 hr 150 mg PO DAILY Patient Comments: TAKE 1 TABLET BY MOUTH EVERY DAY fluoxetine 40 mg capsule 40 mg PO DAILY Patient Comments: TK 2 CS PO QAM hydroxyzine pamoate 50 mg capsule 25 mg PO Q8H PRN PRN Patient Comments: TK 1 C PO Q 4 H PRN loratadine 10 mg tablet 10 mg PO DAILY Patient Comments: No longer taking 04/23/23 CT cyanocobalamin (vitamin B-12) [Vitamin B-12] 500 mcg Tablet 1,000 mcg PO DAILY Qty: 30 0RF naloxone [Narcan] 4 mg/actuation spray,non-aerosol 4 mg intranasal Q2-3M PRNQty: 2 0RF Rx Instructions: spray 1 dose into ONE nostril; alternate nostrils w each dose until help arrives gabapentin 300 mg capsule 300 mg PO TID Patient Comments: TAKE ONE CAPSULE BY MOUTH THREE TIMES A DAY FOR PAIN No Action folic acid 1 mg Tablet 1 mg PO QAM Qty: 30 0RF Patient Comments: No longer taking 04/23/23 CT aripiprazole 2 mg tablet 2 mg PO DAILY Patient Comments: Pt no longer taking. Discharge Instructions Instructions: Suicide Prevention (DC) Activity:: suicide precautions Equipment/Supplies:: No Equipment Needed Diet:: As Tolerated Discharge Orders Discharge Orders: Discharge Order (Routine); Ordered 04/30/23 Ordered By: Judy Wagoner DS: Summary Time Spent with Patient providing and/or coordinating discharge services: Less than 30 minutes Status at Discharge Functional status at discharge: independent ambulation Overall status at discharge: patient is not back to baseline Mental Status: mental status grossly normal Speech and Movement: speech and movement normal Mood: congruent mood Affect: normal affect Exam Const General: cooperative and no acute distress Nutritional Appearance: average body habitus Orientation: alert, awake and oriented x3 HENMT Head: normal to inspection, normocephalic and atraumatic Mouth: oral mucosae normal Chest Chest: normal inspection of the chest Resp Effort & Inspection: normal respiratory effort Cardio Other: pink warm dry and well perfused Extrem General: normal to inspection and full ROM Psych Appearance: grossly normal Mental Status: mental status grossly normal Speech and Movement: speech and movement normal Mood: congruent mood Affect: normal affect Attitude: cooperative Thought Process: normal Thought Content: suicidality Insight: limited Judgment: poor DS: Data Vitals/I&O Vitals and I&O: Vital Signs Temperature 36.7 C 04/30/23 07:12 Temperature Source Tympanic 04/30/23 07:12 Pulse 58 L 04/30/23 07:12 Pulse Rhythm Irregular 04/29/23 20:21 Respiratory Rate 17 04/30/23 07:12 Respiratory Effort Normal 04/29/23 20:21 Respiratory Depth Normal 04/29/23 20:21 Respiratory Pattern Normal 04/29/23 20:21 Blood Pressure 119/73 04/30/23 07:12 Blood Pressure Position Sitting 04/28/23 22:48 Pulse Oximetry 97 04/30/23 07:12 Oxygen Delivery Method Room Air 04/30/23 07:12 Oxygen Flow Rate 0 04/30/23 07:12 Pain Level 10 04/30/23 07:12 Intake & Output 04/29/23 04/29/23 04/30/23 11:59 23:59 11:59 Intake Total 540 / 940 400 / 940 Balance 540 / 940 400 / 940 Weight 88.6 kg Intake: Oral 540 / 940 400 / 940 Other: Urine Appearance Clear Voiding Methods Toilet Toilet PFSH All Active Problems Suicide ideation (Acute) Polysubstance abuse (Acute) Opioid use disorder (Acute) Nicotine dependence (Acute) Suicidal ideation (Acute) Pancreatitis (Chronic) Depression (Chronic) Opioid dependence on agonist therapy (Acute) Alcohol dependence (Chronic) Polysubstance abuse (Acute) Medical History Acute bronchitis Alcohol withdrawal Bronchospasm Chronic deep vein thrombosis (DVT) Cocaine withdrawal Depression Hepatitis B Hepatitis C History of osteomyelitis Polysubstance abuse Suicide ideation Family History Other Alcohol use disorder Depression Social History Smoking/Tobacco Use Status: Current every day Tobacco Type: cigarettes Smoking risk assessment performed?: Yes Alcohol Intake: current Alcohol Intake frequency: 3 or more drinks per day Alcohol type: beer and hard liquor Drug use: Daily Substance use type: marijuana, crack/cocaine, heroin, opiates, painkillers, IV drugs, methamphetamine and prescription drug Details: drinks a case and a half of beer a day and a fifth of vodka. Housing: homeless Do you feel safe at home: Yes Do you feel safe in your relationship?: Yes Additional Social history: Currently homeless. Has 13 year old son in [place] that does not live with him. Time Spent with Patient Time Spent with Patient: 45-69 minutes Time was spent: preparing to see the patient(eg.review tests), referring, communicating with other health memory care program resident and care coordination
[2023-04-30] MEDS: LORazepam 1 MG TAB PO/SL (11:32)
[2023-04-30] MEDS: LORazepam 1 MG TAB PO (16:32)
--- NOTE | 2023-04-30 17:33 | CMDISCH_ITS ---
Date of service: 04/30/23 Time of Service: 17:34 LACE Index Scoring Tool Questions: Length of Stay (in days): 2 Was the patient admitted via the E.D.?: Yes E.D. Visits: 3 Answers: Total Score: 8 Risk of Readmission: Low Risk Care Management Discharge Plan Reason for Hospitalization: Suicidal Ideation Discharge Plan: William transitioned to [facility] today for inpatient psychiatric stabilization. He was transported via EMS ([facility]), coordinated between [facility] and [facility] staff. He will follow up with [facility] and his discharge plan of care. He was glad to be going to treatment. Patient/Family Education Needs: Review discharge instructions and limitations, discussion of self care needs including ask me three. Services Needed at Discharge: Psychiatric Facility ([facility]) and Transportation (EMS, [facility]) MH Services (Omit if N/A) Current MH Services: Psychiatric Inp ([facility]) Referred to Internal [facility] (ED embedded) correctional case records supervisor?: Yes Disposition Disposition: [facility] Transport via of: EMS ([facility])
== END 2023-04-30 16:37 ==
LOC: ER 04-29 17:50 → MS 04-29 19:56
PROVIDERS: Student in an Organized Health Care Education/Training Program; Admitting Provider General Practice; Emergency Provider Emergency Medicine; PCP Nurse Practitioner Family; Visit Provider General Practice
DX: R45.851 Suicidal ideations (principal); F32.A Depression, unspecified; F41.9 Anxiety disorder, unspecified; F11.20 Opioid dependence, uncomplicated; F19.10 Other psychoactive substance abuse, uncomplicated; Z79.899 Other long term (current) drug therapy; F17.210 Nicotine dependence, cigarettes, uncomplicated; F10.20 Alcohol dependence, uncomplicated
CPT/HCPCS: 36415; 80053; 80307; 99285; H0046; 80320; 80329; 84443; 85025; 99221; 99238; G0378

== ENCOUNTER 2023-07-09 14:33 | Emergency (ER) | payer MEDICAID, SELFPAY ==
[2023-07-09 14:36] VITALS: BP 122/65; PULSE 69; RESP 14; TEMP 36.6; O2SAT 95
--- NOTE | 2023-07-09 15:00 | DI.RAD_ITS ---
Exam(s) XR CHEST 2V PA LATERAL EXAM: XR CHEST 2V PA LATERAL CLINICAL HISTORY: cough, pui TECHNIQUE: 2D digital imaging was performed of the chest. Two images were obtained. PA and lateral views were obtained. COMPARISON: CR XR CHEST 2V PA LATERAL from 07/17/2021 CR,XR XR CHEST 2V PA LATERAL from 03/03/2022 FINDINGS: MEDIASTINUM: Normal. HEART: Normal. PULMONARY VASCULATURE: Normal. LUNGS: There are increased lung markings in the right upper lobe suspicious for an infiltrate. There is mild volume loss of the right upper lobe. The left lung appears unchanged compared to the prior examination. PLEURAL SPACE: No pleural effusion or pneumothorax. BONE:Within normal limits for the patient's age. OTHER FINDINGS:Normal. IMPRESSION: Subtle increased lung markings in the right upper lobe suspicious for developing pneumonia. DATA REPOSITORY: RADIATION DOSE DELIVERED:
--- NOTE | 2023-07-09 15:06 | ED.GENADUL_ITS ---
Discharge Plan Disposition Patient Disposition: Home Condition: Stable Discharge Details Clinical Impression: Pneumonia Primary Care Provider: Yulia Miller ED Provider: Carlos Coombs Home Meds and New Rx's Prescriptions: New doxycycline hyclate 100 mg tablet 100 mg PO BID Qty: 13 0RF Continued bupropion HCl 300 mg tablet extended release 24 hr 150 mg PO DAILY Patient Comments: TAKE 1 TABLET BY MOUTH EVERY DAY fluoxetine 40 mg capsule 60 mg PO DAILY Patient Comments: TK 2 CS PO QAM hydroxyzine pamoate 50 mg capsule 25 mg PO Q8H PRN PRN Patient Comments: not taking cyanocobalamin (vitamin B-12) [Vitamin B-12] 500 mcg Tablet 1,000 mcg PO DAILY Qty: 30 0RF Discontinued methadone 10 MG/ML concentrate 80 mg PO DAILY Patient Comments: not taking omeprazole 40 mg Capsule,Delayed Release(Dr/Ec) 40 mg PO DAILY Patient Comments: not taking loratadine 10 mg tablet 10 mg PO DAILY Patient Comments: No longer taking folic acid 1 mg Tablet 1 mg PO QAM Qty: 30 0RF Patient Comments: No longer taking 04/23/23 CT naloxone [Narcan] 4 mg/actuation spray,non-aerosol 4 mg intranasal Q2-3M PRNQty: 2 0RF Patient Comments: not taking Rx Instructions: spray 1 dose into ONE nostril; alternate nostrils w each dose until help arrives gabapentin 300 mg capsule 300 mg PO TID Patient Comments: not taking aripiprazole 2 mg tablet 10 mg PO DAILY Patient Comments: Pt no longer taking. Discharge Instructions Instructions: Albuterol (By breathing), Pneumonia (ED) Additional Instructions: Use albuterol inhaler with spacer as follows: 2 puffs inhaled every 4-6 hours as needed for wheezing. Please contact your primary care physician to arrange follow-up. Return to the ER immediately for any worsening or new concerning symptoms. Referrals: Yulia Miller [Primary Care Provider] - Medical Decision Making -- 42-year-old male smoker here with productive cough over the past 5 days associated arthralgias and rhinorrhea. Patient has significant rhonchi bilaterally with subtle wheeze. He saturating well in no respiratory distress but does have significant cough. Suspect COVID. Will check COVID test. Consider acute bacterial pneumonia will obtain chest x-ray. I will give albuterol inhaler with spacer for wheeze. 1620 -- covid pcr negative. cxr reviewed and interpreted by radiology: Subtle increased lung markings in the right upper lobe suspicious for developing pneumonia. Plan treat for bacterial pneumonia with doxycycline. Initial dose provided here. Usual customary discharge instructions reviewed with the patient. HPI General Mode of arrival: ambulatory . Date/Time Provider Initiated Documentation: 07/09/23 14:48 . Limitations to Documentation: no limitations . Information obtained by: patient . HPI Narrative: 42-year-old male smoker here with chief complaint of cough. Patient notes productive cough for the past 5 days. Cough is worsening. He has associated body aches and runny nose. No fever. Patient does have some shortness of breath with coughing spells. Related Data Home Medications Medication Instructions Recorded Confirmed fluoxetine 40 mg capsule 60 mg PO DAILY 10/09/20 07/09/23 hydroxyzine pamoate 50 mg capsule 25 mg PO Q8H PRN PRN 10/09/20 04/28/23 cyanocobalamin (vitamin B-12) 500 1,000 mcg PO DAILY #30 tabs 02/20/22 04/28/23 mcg tablet (Vitamin B-12) bupropion HCl 300 mg 24 hr tablet, 150 mg PO DAILY 06/19/22 04/28/23 extended release doxycycline hyclate 100 mg tablet 100 mg PO BID #13 tabs 07/09/23 Previous Rx's Medication Instructions Recorded cyanocobalamin (vitamin B-12) 500 1,000 mcg PO DAILY #30 tabs 02/20/22 mcg tablet (Vitamin B-12) doxycycline hyclate 100 mg tablet 100 mg PO BID #13 tabs 07/09/23 Allergies Allergy/AdvReac Type Severity Reaction Status Date / Time No Known Allergies Allergy Unverified 07/09/23 14:40 General Stated Complaint: RespSymp RAVEN: 3 Review of Systems All systems reviewed & are unremarkable except as noted in HPI and below Constitutional Constitutional: Reports as per HPI Respiratory Respiratory: Reports as per HPI PFSH All Active Problems (Updated 07/09/23 @ 16:26 by Carlos Coombs MD) Pneumonia (Acute) Suicide ideation (Acute) Polysubstance abuse (Acute) Opioid use disorder (Acute) Nicotine dependence (Acute) Suicidal ideation (Acute) Pancreatitis (Chronic) Depression (Chronic) Opioid dependence on agonist therapy (Acute) Alcohol dependence (Chronic) Polysubstance abuse (Acute) Medical History Acute bronchitis Alcohol withdrawal Bronchospasm Chronic deep vein thrombosis (DVT) Cocaine withdrawal Depression Hepatitis B Hepatitis C History of osteomyelitis Polysubstance abuse Suicide ideation Family History Other Alcohol use disorder Depression Social History Smoking/Tobacco Use Status: Current every day Tobacco Type: cigarettes Smoking risk assessment performed?: Yes Alcohol Intake: current Alcohol Intake frequency: 3 or more drinks per day Alcohol type: beer and hard liquor Drug use: Daily Substance use type: marijuana, crack/cocaine, heroin, opiates, painkillers, IV drugs, methamphetamine and prescription drug Details: drinks a case and a half of beer a day and a fifth of vodka. Housing: homeless Do you feel safe at home: Yes Do you feel safe in your relationship?: Yes Additional Social history: Currently homeless. Has 13 year old son in [place] that does not live with him. Exam Const General: cooperative and no acute distress HENMT Head: normocephalic and atraumatic Mouth: moist mucous membranes Eyes Conjunctivae: normal conjunctivae Sclera: normal sclerae EOM: EOM intact bilaterally Neck Neck: trachea midline and supple Resp Effort & Inspection: normal respiratory effort, able to speak in complete sentences and cough Auscultation: rhonchi and wheezes Cardio Rate: regular rate and not tachycardic Rhythm: regular rhythm GI Palpation: soft, not firm, no guarding, no masses, not rigid and nontender Skin General skin exam: no rashes or lesions noted Neuro General: patient alert, patient awake and tone normal Extrem General: no edema Psych Appearance: grossly normal Mental Status: mental status grossly normal Course Vital Signs Vital signs: Vital Signs Temperature 36.6 C 07/09/23 14:36 Pulse 69 07/09/23 14:36 Respiratory Rate 14 07/09/23 14:36 Blood Pressure 122/65 07/09/23 14:36 Pulse Oximetry 95 07/09/23 14:36 Temperature 36.6 C 07/09/23 14:36 Temperature Source Oral 07/09/23 14:36 Pulse 69 07/09/23 14:36 Respiratory Rate 14 07/09/23 14:36 Blood Pressure 122/65 07/09/23 14:36 Blood Pressure Position Sitting 07/09/23 14:36 Pulse Oximetry 95 07/09/23 14:36 Oxygen Delivery Method Room Air 07/09/23 14:36 Oxygen Flow Rate 0 07/09/23 14:36 Comment 36.5 scanner 07/09/23 14:36
[2023-07-09 15:20] LABS: Source Nasal/Nares
[2023-07-09] MEDS: Albuterol HFA 8 GM 60 PUFF INH IH (15:35)
[2023-07-09] MEDS: Inhaler, Assist Device 1 EACH MC (15:36)
[2023-07-09 15:51] LABS: COVID-19 PCR Negative (Negative)
[2023-07-09] MEDS: Doxycycline Hyclate 100 MG CAP PO (16:22)
[2023-07-09 16:34] VITALS: BP 100/63; PULSE 52; TEMP 36.5; O2SAT 95
== END 2023-07-09 16:58 | disposition home or self-care (01) ==
PROVIDERS: Emergency Provider Student in an Organized Health Care Education/Training Program; PCP Nurse Practitioner Family
DX: J15.9 Unspecified bacterial pneumonia (principal); Z20.822 Contact with and (suspected) exposure to COVID-19; F17.210 Nicotine dependence, cigarettes, uncomplicated
CPT/HCPCS: 87426; 87635; 99283; 71046; 99284

== ENCOUNTER 2023-07-14 19:59 | Emergency (ER) | payer MEDICAID, SELFPAY ==
[2023-07-14 20:01] VITALS: BP 158/89; PULSE 70; RESP 16; TEMP 36.8; O2SAT 95
[2023-07-14 20:07] VITALS: RESP 16
--- NOTE | 2023-07-14 20:10 | W.ED.GENAD ---
Discharge Plan Disposition Patient Disposition: Home Condition: Good Discharge Details Clinical Impression: Community acquired pneumonia, RAD (reactive airway disease) Primary Care Provider: Yulia Miller ED Provider: Boogie Hanley Home Meds and New Rx's Prescriptions: New prednisone 50 mg tablet 50 mg PO DAILY Qty: 5 0RF No Action doxycycline hyclate 100 mg tablet 100 mg PO BID Qty: 13 0RF fluoxetine 40 mg capsule 60 mg PO DAILY Patient Comments: TK 2 CS PO QAM cyanocobalamin (vitamin B-12) [Vitamin B-12] 500 mcg Tablet 1,000 mcg PO DAILY Qty: 30 0RF Discharge Instructions Instructions: Community Acquired Pneumonia (ED) Additional Instructions: Please continue to take the antibiotic as directed. Please take the prednisone as directed. This has been sent to your pharmacy on file. Please take your new inhaler, the Symbicort 2 puffs every 12 hours. If you notice any worsening of your symptoms, or any new symptoms such as vomiting, diarrhea, fever, chills, shortness of breath, chest pain, numbness, weakness, or fainting , please return immediately to the emergency department for reevaluation. Please follow up with your primary care provider as soon as possible for reassessment and reevaluation. As always, it was a pleasure participating in your medical care today. Referrals: Yulia Miller [Primary Care Provider] - Medical Decision Making 42-year-old male with a past medical history of previous IV drug use/polysubstance abuse, who was just diagnosed with pneumonia [address] Coombs as confirmed on x-ray. He was prescribed doxycycline. He was given an inhaler from use. He has been taking the doxycycline as directed. Unfortunately because of financial constraints the patient has gone to work still, he has been exhausted at work, and states that today while working he felt like he had to pass out and then woke up on the floor. He denies hitting his head or any trauma otherwise. He states that he continues to cough and feel short of breath. He has had previous effusions requiring surgical drainage in the past from previous pneumonia. He denies any chest pain currently. He denies any other complaints. No other modifying factors. He denies any hemoptysis or diarrhea or vomiting. He denies headache numbness or tingling. He has an inhaler at home which she has been using excessively. Exam demonstrates diffuse wheezes, rhonchi and crackles. Oxygenation excellent. Suspect reactive airway disease with continued pneumonia. Unfortunately the patient has been working and has not been able to rest at all which I suspect will likely hinder his healing. We will get a repeat chest x-ray to make sure there is no effusion. We will give 2 breathing treatments and steroids as well. We will monitor closely and reassess. 9:33 PM Patient is feeling much better after breathing treatments and steroids. He feels well and feels comfortable going home. Repeat chest x-ray shows continued pneumonia, slightly worse. He also has a questionable thin lucency in the left apex, differential includes pneumothorax however would be less than 1% per radiology. Bedside ultrasound was performed and demonstrates good lung sliding bilaterally at the apices. No evidence of pneumothorax on the ultrasound. Certainly no evidence of tension pneumothorax or any other abnormality in that regard. We will give outpatient steroid treatment for 5 days secondary to concern for reactive airway disease exacerbation/asthma exacerbation. Will recommend continuation of doxycycline, and we will give Symbicort for home use. Patient otherwise stable. Repeat COVID flu and RSV are normal. No hypoxemia. Troponin and EKG are normal/unchanged. Patient stable for discharge. Discussed red flags for which to return. I have extensively reviewed the treatment plan and discharge instructions with the patient. I have addressed all patient concerns at this time. The patient was made aware of what symptoms to monitor for that would warrant a return to the emergency department. Discussed the plan with the patient, they demonstrate verbal understanding and agreement with our assessment and plan at this time. The documentation in this chart was dictated using Music Messenger (MM) dictation software. Please excuse any dictation errors. FINDINGS: Lungs: Low lung volumes. Pulmonary vasculature grossly normal. Bilateral perihilar alveolar opacities and additional alveolar density in the central left upper lobe and right base, suspicious for multifocal pneumonia, slightly increased from 07/09/2023. Thin peripheral lucent interface in the lateral left pulmonary apex, can not exclude very small left pneumothorax, less than 1% volume. Pleural spaces: No pleural effusion. Heart/Mediastinum: Heart size normal. No tracheal/mediastinal shift. Bones/joints: No acute osseous abnormalities are identified. IMPRESSION: 1. Thin lucency in the left apex, can not exclude very small left apical pneumothorax, less than 1% volume. 2. Bilateral perihilar/upper lobe alveolar opacities concerning for pneumonia are slightly increased from 07/09/2023. 3. These findings initiated a critical results reporting process. An addendum will be issued at the time of clinician notification. Thank you for allowing us to participate in the care of your patient. Dictated and Authenticated by: Madan Gil MD 07/14/2023 9:01 PM Eastern Time ([place] & [place]) HPI General Date/Time Provider Initiated Documentation: 07/14/23 20:00. HPI Narrative: 42-year-old male with a past medical history of previous IV drug use/polysubstance abuse, who was just diagnosed with pneumonia [address] Coombs as confirmed on x-ray. He was prescribed doxycycline. He was given an inhaler from use. He has been taking the doxycycline as directed. Unfortunately because of financial constraints the patient has gone to work still, he has been exhausted at work, and states that today while working he felt like he had to pass out and then woke up on the floor. He denies hitting his head or any trauma otherwise. He states that he continues to cough and feel short of breath. He has had previous effusions requiring surgical drainage in the past from previous pneumonia. He denies any chest pain currently. He denies any other complaints. No other modifying factors. He denies any hemoptysis or diarrhea or vomiting. He denies headache numbness or tingling. He has an inhaler at home which she has been using excessively. Related Data Home Medications Medication Instructions Recorded Confirmed fluoxetine 40 mg capsule 60 mg PO DAILY 10/09/20 07/09/23 cyanocobalamin (vitamin B-12) 500 1,000 mcg PO DAILY #30 tabs 02/20/22 04/28/23 mcg tablet (Vitamin B-12) doxycycline hyclate 100 mg tablet 100 mg PO BID #13 tabs 07/09/23 prednisone 50 mg tablet 50 mg PO DAILY #5 tabs 07/14/23 Previous Rx's Medication Instructions Recorded cyanocobalamin (vitamin B-12) 500 1,000 mcg PO DAILY #30 tabs 02/20/22 mcg tablet (Vitamin B-12) doxycycline hyclate 100 mg tablet 100 mg PO BID #13 tabs 07/09/23 prednisone 50 mg tablet 50 mg PO DAILY #5 tabs 07/14/23 Allergies Allergy/AdvReac Type Severity Reaction Status Date / Time No Known Allergies Allergy Unverified 07/09/23 14:40 General Stated Complaint: GenMedical RAVEN: 3 Review of Systems All systems reviewed & are unremarkable except as noted in HPI and below PFSH All Active Problems (Updated 07/14/23 @ 21:36 by Boogie Hanley DO) Pneumonia (Acute) Community acquired pneumonia (Acute) RAD (reactive airway disease) (Acute) Suicide ideation (Acute) Polysubstance abuse (Acute) Opioid use disorder (Acute) Nicotine dependence (Acute) Suicidal ideation (Acute) Pancreatitis (Chronic) Depression (Chronic) Opioid dependence on agonist therapy (Acute) Alcohol dependence (Chronic) Polysubstance abuse (Acute) Medical History Acute bronchitis Alcohol withdrawal Bronchospasm Chronic deep vein thrombosis (DVT) Cocaine withdrawal Depression Hepatitis B Hepatitis C History of osteomyelitis Polysubstance abuse Suicide ideation Family History Other Alcohol use disorder Depression Social History Smoking/Tobacco Use Status: Current every day Tobacco Type: cigarettes Smoking risk assessment performed?: Yes Alcohol Intake: current Alcohol Intake frequency: 3 or more drinks per day Alcohol type: beer and hard liquor Drug use: Daily Substance use type: marijuana, crack/cocaine, heroin, opiates, painkillers, IV drugs, methamphetamine and prescription drug Details: drinks a case and a half of beer a day and a fifth of vodka. Housing: homeless Do you feel safe at home: Yes Do you feel safe in your relationship?: Yes Exam Narrative Exam Narrative: 1.Const: Well-nourished, Well-developed, appearing stated age 2.Eyes: PERRL, no conjunctival injection, and symmetrical lids. 3.ENT: Atraumatic external nose and ears. Moist MM. Neck: Symmetric, trachea midline, No thyromegaly. 4.CVS: +S1/S2, No murmurs or gallops. Peripheral pulses 2+ and equal in all extremities. Brisk capillary refill in all extremities. 5.RESP: Unlabored respiratory effort. Diffuse crackles and rhonchi throughout. Diffuse wheezes throughout. 6.GI: Soft, Nontender/Nondistended, No hepatosplenomegaly. No guarding or rebound. 7.MSK: Normocephalic/Atraumatic, Extremities w/o deformity or ttp No cyanosis or clubbing, Normal movement of all extremities 8.Skin: Warm, Dry. No rashes or lesions. 9.Neuro: care information associate II-XII grossly intact. Sensation grossly intact, no focal neurologic deficits. 10.Psych: (AAO) x3. Appropriate mood and affect Course Vital Signs Vital signs: Vital Signs Temperature 36.8 C 07/14/23 20:01 Pulse 70 07/14/23 20:01 Respiratory Rate 16 07/14/23 20:01 Blood Pressure 158/89 H 07/14/23 20:01 Pulse Oximetry 95 07/14/23 20:01 Temperature 36.8 C 07/14/23 20:01 Temperature Source Oral 07/14/23 20:01 Pulse 70 07/14/23 20:01 Respiratory Rate 16 07/14/23 20:07 Respiratory Effort Normal 07/14/23 20:07 Respiratory Depth Normal 07/14/23 20:07 Respiratory Pattern Normal 07/14/23 20:07 Blood Pressure 158/89 H 07/14/23 20:01 Pulse Oximetry 95 07/14/23 20:01 Oxygen Delivery Method Room Air 07/14/23 20:01 Oxygen Flow Rate 0 07/14/23 20:01 Pain Level 0 07/14/23 20:01 POCUS Exam (ED) Limited Thoracic Lung Exam DATE OF EXAM: 07/14/23 TIME OF EXAM: 21:32 PROVIDER THAT PERFORMED THE STUDY: Boogie Hanley IS THIS A REPEAT EXAM DURING THIS ENCOUNTER: No REASON FOR EXAM: Shortness ofBreath VISUALIZED STRUCTURES: right lateral, left lateral, right posterior and left posterior PERTINENT FINDINGS/IMPRESSION: lung sliding left side, lung sliding left side and no pneumothorax DIFFERENTIAL DIAGNOSES: Patient demonstrates good lung sliding at bilateral apices. Exam complete
[2023-07-14] MEDS: Albuterol/Ipratropium 3 ML UPD VIAL 6 ML UPD (20:22)
[2023-07-14] MEDS: methylPREDNISolone SUCC 125 MG VIAL IVP (20:22)
[2023-07-14] MEDS: Normal Saline 1,000 ML 1000 ML IV (20:22)
[2023-07-14 20:24] LABS: Abs Immature Grans 0.02 10^3/uL (0.0-0.06); Absolute Basophil Count 0.04 10^3/uL (0.0-0.2); Absolute Eosinophil Count 0.37 10^3/uL (0.0-0.7); Absolute Monocyte Count 0.67 10^3/uL (0.1-0.8); Absolute Neutrophil Count 3.24 10^3/uL (1.2-6.7); BE (Venous) 1 mmol/L (-2-3); Basophils % 0.6; Eosinophils % 5.3; HCO3 (Venous) 26 mmol/L (23-28); HCT 43.8 % (40.0-50.0); HGB 14.2 g/dL (13.5-17.5); Immature Grans % 0.3; Lymphocytes % 37.5; MCHC 32.4 % (32.0-36.0); MCV 89 fL (80-95); MPV 8.7 fL (8.0-11.0); Monocytes % 9.7; Neutrophils % 46.6; O2 Sat (Venous) 68 %; Platelet Count 337 10^3/uL (130-400); RDW 15.5 % (11.8-14.1); TCO2 (Venous) 24 mmol/L (24-29); WBC 6.94 10^3/uL (4.4-10.8); pCO2 (Venous) 47 mmHg (41-51); pH (Venous) 7.36 (7.31-7.41); pO2 (Venous) 38 mmHg
--- NOTE | 2023-07-14 20:30 | DI.RAD_ITS ---
Exam(s) XR PORTABLE CHEST AP EXAM: XR PORTABLE CHEST AP CLINICAL HISTORY: pneumonia, eval for phneumothorax or effusion TECHNIQUE: 2D digital imaging was performed. COMPARISON: CR XR CHEST 2V PA LATERAL from 07/17/[address] CHEST W from 08/13/2021 CR,XR XR CHEST 2V PA LATERAL from 03/03/2022 CR XR PORTABLE CHEST AP from 03/07/[address] ABDOMEN PELVIS WO from 06/20/2022 CR XR CHEST 2V PA LATERAL from 07/09/2023 FINDINGS: LUNGS: Bilateral upper lobe scarring again noted.. Low lung volumes. Question of increasing upper l obe densities versus differences in technique. No pleural abnormality seen. HEART: Normal size. AORTA: Normal diameter. BONES: Unremarkable for age. Soft tissues: Unremarkable. IMPRESSION: Bilateral upper lobe scarring. Question of increasing densities in the upper lobes, greatest on the left upper lobe which could indicate superimposed infiltrate. Findings could also be secondary to di fferences in technique. DATA REPOSITORY: RADIATION DOSE DELIVERED:
[2023-07-14 20:36] VITALS: PULSE 75; RESP 24
[2023-07-14 20:43] LABS: ALT 77 U/L (16-63); AST 67 U/L (15-37); Albumin 3.5 g/dL (3.4-5.0); Alkaline Phosphatase 112 U/L (46-116); Anion Gap 10.5 mmol/L (3-11); BUN 6 mg/dL (7-18); Bilirubin, Total 0.4 mg/dL (0.2-1.0); CO2 25.5 mmol/L (21.0-32.0); CREATININE 0.8 mg/dL (0.70-1.30); Calcium 9.7 mg/dL (8.5-10.1); Chloride 102 mmol/L (98-107); Estimated GFR 112.61 (mL/min/1.73m2); Glucose 77 mg/dL (74-106); Potassium 3.3 mmol/L (3.5-5.1); Sodium 138 mmol/L (136-145); Total Protein 9.2 g/dL (6.4-8.2); Troponin I < 50 ng/L (<or=60)
--- NOTE | 2023-07-14 20:45 | RT.EKG_ITS ---
APPROVED REPORT Exam: Resting ECG Reason for Exam: syncope Patient Location: E HR:57 bpm ECG Measurements Heart Rate 57 AXIS WI 141 P 39 QRSd 102 QRS 29 QT 569 T 23 QTc 556 Conclusion Sinus bradycardia...rate< 60 Probable left atrial enlargement...P >50mS, <-0.10mV V1 Prolonged QT interval...QTc >500mS Physician: no stemi, Q3T3 present but unchanged from prior ekg
[2023-07-14 21:02] VITALS: RESP 39
[2023-07-14 21:02] LABS: COVID-19 PCR Negative (Negative); Influenza A PCR Negative (Negative); Influenza B PCR Negative (Negative); RSV PCR Negative (Negative)
[2023-07-14 21:03] LABS: Source Nasopharynx
[2023-07-14 21:04] VITALS: BP 126/53; PULSE 60; RESP 21
--- NOTE | 2023-07-14 21:04 | DI.VRAD_ITS ---
Addendum created by Madan Gil MD on 07/14/2023 9:03:53 PM EDT: Addendum: THIS REPORT CONTAINS FINDINGS THAT MAY BE CRITICAL TO PATIENT CARE. The findings were verbally communicated via telephone conference with BEVERLY JARVIS at 9:03 PM EDT on 07/14/2023. The findings were acknowledged and understood. Initial report created on 07/14/2023 9:01:19 PM EDT: PROCEDURE INFORMATION: Exam: XR Chest Exam date and time: 07/14/2023 8:28 PM Age: 42 years old Clinical indication: Other: Pneumonia, eval for phneumothorax or effusion TECHNIQUE: Imaging protocol: Radiologic exam of the chest. Views: 1 view. COMPARISON: CR XR CHEST 2V PA LATERAL 07/09/2023 3:26 PM FINDINGS: Lungs: Low lung volumes. Pulmonary vasculature grossly normal. Bilateral perihilar alveolar opacities and additional alveolar density in the central left upper lobe and right base, suspicious for multifocal pneumonia, slightly increased from 07/09/2023. Thin peripheral lucent interface in the lateral left pulmonary apex, can not exclude very small left pneumothorax, less than 1% volume. Pleural spaces: No pleural effusion. Heart/Mediastinum: Heart size normal. No tracheal/mediastinal shift. Bones/joints: No acute osseous abnormalities are identified. IMPRESSION: 1. Thin lucency in the left apex, can not exclude very small left apical pneumothorax, less than 1% volume. 2. Bilateral perihilar/upper lobe alveolar opacities concerning for pneumonia are slightly increased from 07/09/2023. 3. These findings initiated a critical results reporting process. An addendum will be issued at the time of clinician notification. Dictated and Authenticated by: Madan Gil MD. Ordering:ROGELIO Hyman MD
[2023-07-14 21:10] VITALS: PULSE 83; RESP 20
[2023-07-14] MEDS: Budesonide/Formoterol 160/4.5 6 GM 60 PUFF INH IH (21:33)
== END 2023-07-14 21:35 | disposition home or self-care (01) ==
PROVIDERS: Emergency Provider Student in an Organized Health Care Education/Training Program; PCP Nurse Practitioner Family
DX: J18.9 Pneumonia, unspecified organism (principal); J45.909 Unspecified asthma, uncomplicated
CPT/HCPCS: 80053; 82805; 87637; 93005; 94640; 96360; 96374; 99284; 71045; 84484; 85025; 93010; J2930; J7620

== ENCOUNTER 2023-08-22 06:36 | Emergency (ER) | payer MEDICAID, SELFPAY ==
[2023-08-22] VITALS (32 sets, daily range): BP systolic 144–209; BP diastolic 63–154; PULSE 55–95; RESP 10–26; TEMP 36.7; O2SAT 93–100
--- NOTE | 2023-08-22 06:30 | RT.EKG_ITS ---
APPROVED REPORT Exam: Resting ECG Reason for Exam: Syncope Patient Location: E HR:59 bpm ECG Measurements Heart Rate 59 AXIS OK 139 P 0 QRSd 97 QRS 68 QT 443 T 112 QTc 441 Conclusion Incomplete analysis due to missing data in precordial lead(s) Sinus bradycardia...rate< 60 Probable left ventricular hypertrophy...multiple LVH criteria Nonspecific T abnormalities, lateral leads...T <-0.10mV, I aVL V5 V6 Narrow complex sinus bradycardia rate of 59. Normal axis. Intervals within normal limits. No acute injury pattern. No ECG tracing in V6. Appears similar to prior dated last month.
--- NOTE | 2023-08-22 06:51 | ED.GENADUL_ITS ---
Discharge Plan Discharge Details Chief Complaint: ETOHWithdr Primary Care Provider: Yulia Miller ED Provider: Madan Doherty Home Meds and New Rx's Prescriptions: No Action doxycycline hyclate 100 mg tablet 100 mg PO BID Qty: 13 0RF fluoxetine 40 mg capsule 60 mg PO DAILY Patient Comments: TK 2 CS PO QAM cyanocobalamin (vitamin B-12) [Vitamin B-12] 500 mcg Tablet 1,000 mcg PO DAILY Qty: 30 0RF prednisone 50 mg tablet 50 mg PO DAILY Qty: 5 0RF HPI General Date/Time Provider Initiated Documentation: 08/22/23 06:43 . HPI Narrative: MDM This is an uncomfortable appearing but normothermic and not tachycardic 42-year-old male with history of alcohol use and outpatient methadone use now in emergency department with concerns for detoxification. Patient has no tongue fasciculations to suggest acute alcohol withdrawal. Nonetheless his history is hypertension is concerning for the possibility of early withdrawal. We will place patient on a CIWA protocol. No ataxia confusion nor ophthalmoplegia so doubt Warnicke's encephalopathy so we will defer thiamine at this point. No pain out of proportion to suggest necrotizing soft tissue infection. Patient is moving all 4 extremities spontaneously so my suspicion is low for CVA so I did not feel that the patient requires a CT head. No reported tonic-clonic activity so doubt seizure so I do not feel that the patient requires an EEG. No nuchal rigidity no reported fevers so I do not feel that the patient's presentation is consistent with meningitis so we will defer lumbar puncture. Patient is nauseous so we will obtain basic labs to assess for any acute electrolyte abnormalities. Patient has endorsed suicidal ideation in the past so we will also obtain salicylates, acetaminophen, ethanol levels though the patient denies any intentional overdose. He does have some gooseflesh and is yawning which is concerning for possibility of opiate withdrawal. We will provide 1 L of fluids, ondansetron for nausea and IV acetaminophen. We will sign patient out to oncoming daytime provider. 7 AM After I left the room patient reported to nurse Nassar that he was suicidal. Patient was becoming agitated for which I ordered him 5 mg of droperidol and 2 mg of midazolam. He did not require physical restraints. 7:37 AM I signed patient out to oncoming daytime provider Dr. Hanley pending assessment of labs clinical reassessment and consultation with behavioral health was patient is sober. Chronic conditions affecting the care of the patient: Depression nicotine use polysubstance abuse alcohol abuse. History obtained from an outside historian: N/A [place] [facility] [place] [Diagnostic interpretations performed by me:] [Per my independent interpretation EKG shows:] Narrow complex sinus bradycardia rate of 59. Normal axis. Intervals within normal limits. No acute injury pattern. No ECG tracing in V6. Appears similar to prior dated last month. Medications: Ondansetron & acetaminophen Social determinants of health affecting disposition: N/A Management discussed with: Oncoming daytime provider Treatment/interventions considered: N/A Response to therapies provided: N/A HPI This is a 42-year-old male with history of depression and suicidal ideation arrived to the emergency department via private vehicle in the setting of concerns for withdrawal. Patient complains of nausea and diarrhea. He also complains of muscle aches chills shortness of breath and cough that began yesterday. Patient reports withdrawing from fentanyl and ethanol. He reports that he took 1 sleeping pill night and he drinks 1 case of beer per day. He last used fentanyl several days ago. He reported that his methadone dose had been halved. He denies any fevers. He is not having any chest pain. He has heavy abdominal pain. He has never had any hospitalized withdrawal from alcohol. He denies intubation as result of withdrawal from alcohol. No calf pain. Exam General: Disheveled and yawning slow to respond in mild distress speaking in 4-5 word sentences. Head: Normocephalic, atraumatic. Eye:[Pupils equal, round reactive to light.] Extraocular eye movements intact. No conjunctival injection. No scleral icterus. Ear, nose, mouth, throat: Grossly normal inspection. Normal voice, handling secretions normally. Neck: Trachea midline. Cardiovascular: Well-perfused distal extremities. Regular rate and rhythm. Respiratory: Nonlabored respiration. Clear lungs bilaterally Gastrointestinal: Nondistended abdomen. Soft nontender. Musculoskeletal: No edema. Moving all 4 extremities spontaneously. Skin: Normal for age and race, grossly normal temperature and turgor. No acute rash. Neurologic: Alert and appropriate, no apparent acute deficits. GCS 15. Psychiatric: Mood and manner are appropriate. Grooming and personal hygiene are appropriate. Related Data Home Medications Medication Instructions Recorded Confirmed fluoxetine 40 mg capsule 60 mg PO DAILY 10/09/20 07/09/23 cyanocobalamin (vitamin B-12) 500 1,000 mcg (2 x 500 mcg) PO DAILY 02/20/22 04/28/23 mcg tablet (Vitamin B-12) #30 tabs doxycycline hyclate 100 mg tablet 100 mg PO BID #13 tabs 07/09/23 prednisone 50 mg tablet 50 mg PO DAILY #5 tabs 07/14/23 Previous Rx's Medication Instructions Recorded cyanocobalamin (vitamin B-12) 500 1,000 mcg (2 x 500 mcg) PO DAILY 02/20/22 mcg tablet (Vitamin B-12) #30 tabs doxycycline hyclate 100 mg tablet 100 mg PO BID #13 tabs 07/09/23 prednisone 50 mg tablet 50 mg PO DAILY #5 tabs 07/14/23 Allergies Allergy/AdvReac Type Severity Reaction Status Date / Time No Known Allergies Allergy Unverified 07/09/23 14:40 General RAVEN: 3 PFSH All Active Problems (Updated 08/14/23 @ 00:04 by MEGGAN PAULA) Suicide ideation (Acute) Polysubstance abuse (Acute) Opioid use disorder (Acute) Nicotine dependence (Acute) Suicidal ideation (Acute) Pancreatitis (Chronic) Depression (Chronic) Opioid dependence on agonist therapy (Acute) Alcohol dependence (Chronic) Polysubstance abuse (Acute) Medical History Acute bronchitis Alcohol withdrawal Bronchospasm Chronic deep vein thrombosis (DVT) Cocaine withdrawal Depression Hepatitis B Hepatitis C History of osteomyelitis Polysubstance abuse Suicide ideation Family History Other Alcohol use disorder Depression Social History Smoking/Tobacco Use Status: Current every day Tobacco Type: cigarettes Smoking risk assessment performed?: Yes Alcohol Intake: current Alcohol Intake frequency: 3 or more drinks per day Alcohol type: beer and hard liquor Drug use: Daily Substance use type: marijuana, crack/cocaine, heroin, opiates, painkillers, IV drugs, methamphetamine and prescription drug Details: drinks a case and a half of beer a day and a fifth of vodka. Housing: homeless Do you feel safe at home: Yes Do you feel safe in your relationship?: Yes
[2023-08-22] MEDS: Droperidol 5 MG/2 ML VIAL IM (07:11)
[2023-08-22] MEDS: Midazolam 2 MG/2 ML VIAL IM (07:11)
[2023-08-22] MEDS: Normal Saline 1,000 ML 1000 ML IV (07:40)
[2023-08-22 07:44] LABS: Abs Immature Grans 0.01 10^3/uL (0.0-0.06); Absolute Basophil Count 0.04 10^3/uL (0.0-0.2); Absolute Eosinophil Count 0.14 10^3/uL (0.0-0.7); Absolute Lymphocyte Count 1.67 10^3/uL (1.2-3.4); Absolute Monocyte Count 0.64 10^3/uL (0.1-0.8); Absolute Neutrophil Count 5.36 10^3/uL (1.2-6.7); Basophils % 0.5; Eosinophils % 1.8; HCT 47.4 % (40.0-50.0); HGB 15.5 g/dL (13.5-17.5); Immature Grans % 0.1; Lymphocytes % 21.2; MCH 29.1 pg (27.0-33.0); MCHC 32.7 % (32.0-36.0); MCV 89 fL (80-95); MPV 8.5 fL (8.0-11.0); Monocytes % 8.1; Neutrophils % 68.3; Platelet Count 348 10^3/uL (130-400); RBC 5.32 10^6/uL (4.36-5.78); RDW 14.4 % (11.8-14.1); RDW-SD 46.6 fL; WBC 7.86 10^3/uL (4.4-10.8)
[2023-08-22 08:00] LABS: ALT 49 U/L (16-63); AST 61 U/L (15-37); Albumin 3.7 g/dL (3.4-5.0); Alkaline Phosphatase 101 U/L (46-116); Anion Gap 8.8 mmol/L (3-11); BUN 3 mg/dL (7-18); Bilirubin, Total 0.5 mg/dL (0.2-1.0); CO2 27.2 mmol/L (21.0-32.0); CREATININE 0.9 mg/dL (0.70-1.30); Calcium 9.8 mg/dL (8.5-10.1); Chloride 100 mmol/L (98-107); ETHANOL BLOOD 48.3 mg/dL (<10); Estimated GFR 108.68 (mL/min/1.73m2); Glucose 105 mg/dL (74-106); Lipase 42 U/L (16-77); Magnesium 1.9 mg/dL (1.8-2.4); Potassium 3.4 mmol/L (3.5-5.1); Sodium 136 mmol/L (136-145); Total Protein 9.1 g/dL (6.4-8.2)
[2023-08-22 08:19] LABS: Salicylate 3.5 mg/dL (<2.8)
[2023-08-22 08:21] LABS: Acetaminophen < 2 ug/mL (10-30)
--- NOTE | 2023-08-22 08:30 | DI.RAD_ITS ---
Exam(s) XR PORTABLE CHEST AP EXAM: XR PORTABLE CHEST AP CLINICAL HISTORY: Recent pneumonia TECHNIQUE: 2D digital imaging was performed. COMPARISON: CR,XR XR PORTABLE CHEST AP from 07/14/2023 FINDINGS: Exam is extremely limited by positioning and lack of adequate pulmonary inflation.. The abdomen obs cures visualization of the lung bases. Leads overlie the chest. LUNGS: Upper lobe scarring. No pleural abnormality seen. HEART: Normal size. AORTA: Normal diameter. BONES: Unremarkable for age. Soft tissues: Unremarkable. IMPRESSION: Extremely limited exam. No gross evidence of an acute abnormality. DATA REPOSITORY: RADIATION DOSE DELIVERED:
[2023-08-22] MEDS: LORazepam 2 MG/ML VIAL 1 MG IVP (09:07)
[2023-08-22 09:25] LABS: *AMPHETAMINES SCREEN URINE Negative (Negative); *BARBITURATES SCREEN URINE Negative (Negative); *BENZODIAZEPINES SCREEN URINE Positive (Negative); Cannabinoids THC Positive (Negative); Cocaine Screen,Urine Positive (Negative); METHADONE URINE SCREEN Positive (Negative); OPIATES URINE SCREEN Negative (Negative)
[2023-08-22 09:27] LABS: Tricyclic Antidepressants Negative (Negative)
--- NOTE | 2023-08-22 09:36 | NUR.NOTE ---
Nursing Note: Pt uncooperative with RN. Pt educated multiple times by RN that he needed the monitoring equipment left on to monitor his heart and blood pressure. Pt non-complient with RN's request. RN adjusted monitoring equipment several times with no success; each time equipment was removed by pt. MD aware that pt is non-compliant with monitoring equipment.
--- NOTE | 2023-08-22 10:19 | W.EDPROG ---
Date of service: 08/22/23 Time of Service: 10:20 Medical Decision Making Patient was signed out to me by my colleague pending reassessment for withdrawals and previous suicidal ideation. Patient was medically cleared. Hemodynamically stable. Initial alcohol level was only 48, this was a few hours ago. Patient is notably clinically sober at this time. Patient was sleeping, I did wake him up. He was notably disgruntled and was not very willing to have further conversation with the mental health advocate. He at this time denies any homicidal or suicidal ideation. He had a full conversation with me and was able to answer all of my questions was in there, however as soon as I left and left him to speak with a mental health advocate, he immediately lays back down refuses to answer any questions. I go back and he does seem to respect me and answers my questions, but still is unwilling to speak with mental health anymore. He does deny any homicidal or suicidal ideations currently. I did make it very clear to him that there is no indication for admission or an indication to keep him in the ED at this time otherwise based on his current assessment. He understands this. I also made it very clear that he is appropriate for discharge based on the current clinical assessment and he also verbalizes understanding of this. He continues to deny any other concerning behavioral components otherwise at this current time of clinical assessment. Patient stable for discharge. Mental health has no additional recommendations at this time. Patient will be discharged home. Discussed red flags for which to return. Plan of care Sign Out Sign Out Data: Sign Out Comment: Please follow-up labs CIWA and reassess clinically prior to engaging with [facility] makemoji given suicidal ideation. Patient has received 5 mg of droperidol and 2 mg of midazolam. Last updated by Madan Doherty MD at 08/22/23 07:42 Discharge Plan Discharge Details Chief Complaint: ETOHWithdr Clinical Impression: Polysubstance abuse Primary Care Provider: Yulia Miller ED Provider: Boogie Hanley Home Meds and New Rx's Prescriptions: No Action fluoxetine 40 mg capsule 60 mg PO DAILY Patient Comments: TK 2 CS PO QAM cyanocobalamin (vitamin B-12) [Vitamin B-12] 500 mcg Tablet 1,000 mcg PO DAILY Qty: 30 0RF prednisone 50 mg tablet 50 mg PO DAILY Qty: 5 0RF Patient Comments: Pt unsure if taking Discharge Instructions Instructions: Abuse of Alcohol (ED) Additional Instructions: Please avoid alcohol and drug use. Please follow-up closely with your mental health advocates. Although you did not want the additional services provided today, if you do have a change of mind, do not hesitate to reach out and we can reestablish care with these additional outpatient services. If you notice any worsening of your symptoms, or any new symptoms such as vomiting, diarrhea, fever, chills, shortness of breath, chest pain, numbness, weakness, or fainting , please return immediately to the emergency department for reevaluation. Please follow up with your primary care provider as soon as possible for reassessment and reevaluation. As always, it was a pleasure participating in your medical care today. Referrals: Yulia Miller [Primary Care Provider] -
--- NOTE | 2023-08-22 10:22 | NUR.NOTE ---
Nursing Note: Pt uncooperative with staff; refusing evaluation by mental health. Pt A&O x 4, answers all questions appropriately; pt understands he will be discharged since he is refusing evaluation. Pt's father (Kobe Galo) called by RN to bring pt home. MD discussed reason for discharge with pt's father.
== END 2023-08-22 10:46 | disposition home or self-care (01) ==
LOC: ER 08:19
PROVIDERS: Emergency Medicine; Emergency Provider Student in an Organized Health Care Education/Training Program; PCP Nurse Practitioner Family
DX: F19.10 Other psychoactive substance abuse, uncomplicated (principal)
CPT/HCPCS: 00123; 80053; 80307; 83690; 93005; 96361; 96372; 96374; 99284; 71045; 80320; 80329; 83735; 85025; 93010; J1790; J2060; J2250

== ENCOUNTER 2023-09-11 23:01 | Emergency (ER) | payer MEDICAID, SELFPAY ==
--- NOTE | 2023-09-11 23:05 | ED.GENADUL_ITS ---
Discharge Plan Disposition Patient Disposition: Against Medical Advice Condition: Stable Discharge Details Clinical Impression: URI (upper respiratory infection) Primary Care Provider: Yulia Miller ED Provider: James Benites Meds and New Rx's Prescriptions: Continued fluoxetine 40 mg capsule 60 mg PO DAILY Patient Comments: TK 2 CS PO QAM cyanocobalamin (vitamin B-12) [Vitamin B-12] 500 mcg Tablet 1,000 mcg PO DAILY Qty: 30 0RF prednisone 50 mg tablet 50 mg PO DAILY Qty: 5 0RF Patient Comments: Pt unsure if taking Discharge Instructions Instructions: Upper Respiratory Infection (ED) Discharge Data Discharge Physician: James Benites Medical Decision Making Patient presented to the hospital with flulike symptoms he was mildly hypotensive sepsis protocol was started but he was nonfebrile and apparently after he started doing blood work he decided to sign AGAINST MEDICAL ADVICE understanding that this could risk his life. HPI General Date/Time Provider Initiated Documentation: 09/11/23 23:04 . HPI Narrative: Patient presents emergency department complaining of flulike symptoms cold cough congestion generalized bodyaches denies any shortness of breath denies any dizziness Related Data Home Medications Medication Instructions Recorded Confirmed fluoxetine 40 mg capsule 60 mg PO DAILY 10/09/20 08/22/23 cyanocobalamin (vitamin B-12) 500 1,000 mcg (2 x 500 mcg) PO DAILY 02/20/22 08/22/23 mcg tablet (Vitamin B-12) #30 tabs prednisone 50 mg tablet 50 mg PO DAILY #5 tabs 07/14/23 08/22/23 Previous Rx's Medication Instructions Recorded cyanocobalamin (vitamin B-12) 500 1,000 mcg (2 x 500 mcg) PO DAILY 02/20/22 mcg tablet (Vitamin B-12) #30 tabs prednisone 50 mg tablet 50 mg PO DAILY #5 tabs 07/14/23 Allergies Allergy/AdvReac Type Severity Reaction Status Date / Time No Known Allergies Allergy Unverified 07/09/23 14:40 General RAVEN: 3 Review of Systems Narrative: Review of Systems: Constitutional: No fevers, chills, sweats Eye: No recent visual problems ENT: No ear pain, nasal congestion, sore throat Respiratory: No shortness of breath, cough Cardiovascular: No Chest pain, palpitations, syncope Gastrointestinal: No nausea, vomiting, diarrhea Genitourinary: No hematuria Stevo/Lymph: Negative for bruising tendency, swollen lymph glands Endocrine: Negative for excessive thirst, excessive hunger Musculoskeletal: No back pain, neck pain, joint pain, muscle pain, decreased range of motion Integumentary: No rash, pruritus, abrasions Neurologic: Alert & oriented X 4 Psychiatric: No anxiety, depression PFSH All Active Problems URI (upper respiratory infection) (Acute) Suicide ideation (Acute) Polysubstance abuse (Acute) Opioid use disorder (Acute) Nicotine dependence (Acute) Suicidal ideation (Acute) Pancreatitis (Chronic) Depression (Chronic) Opioid dependence on agonist therapy (Acute) Alcohol dependence (Chronic) Polysubstance abuse (Acute) Medical History Acute bronchitis History of osteomyelitis Hepatitis B Hepatitis C Chronic deep vein thrombosis (DVT) Depression Bronchospasm Alcohol withdrawal Polysubstance abuse Suicide ideation Cocaine withdrawal Family History Other Alcohol use disorder Depression Social History Smoking/Tobacco Use Status: Current every day Tobacco Type: cigarettes Smoking risk assessment performed?: Yes Alcohol Intake: current Alcohol Intake frequency: 3 or more drinks per day Alcohol type: beer and hard liquor Drug use: Daily Substance use type: marijuana, crack/cocaine, heroin, opiates, painkillers, IV drugs, methamphetamine and prescription drug Details: drinks a case and a half of beer a day and a fifth of vodka. Housing: homeless Do you feel safe at home: Yes Do you feel safe in your relationship?: Yes Exam Narrative Exam Narrative: Exam; vitals signs as reported above normal Constitutional; In no acute distress, afebrile General: cooperative, healthy appearing, comfortable and no acute distress HEENT: Head: normal to inspection, no palpable skull fracture and normocephalic atraumatic Eyes: : appearance normal, both eyes and all related structures EOM intact bilaterally Pupils: PERRL : conjunctiva normal Direct ophthalmoscopy: normal light reflex, normal conjunctiva, normal visual acuity Ears: Normal TM, normal external canal Nose: normal no rhinorreha Neck no JVD, supple non tender Neck: normal visual inspection, full ROM and no lymphadenopathy Chest: normal inspection of the chest Respiratory : normal respiratory effort and able to speak in complete sentences no wheezing no rales Cardio Rate: regular rate, rhythm: regular rhythm normal heart sounds S1 and S2 no murmurs, gallops, or rubs GI : normal to inspection, normal bowel sounds, soft, non tender, non distended, no organomegaly Back/Spine/ no CVA tenderness Thoracic/Lumbar Spine: no tenderness or deformities Skin no rashes or lesions Neuro: patient alert oriented x 4 and no meningeal signs, Cranial Nerves: CN's II-XI intact bilaterally, Cognition: normal cognition, Speech: speech normal, Gait: normal gait, Depp tendon reflexes normal 2+ muscle strength 5/5 bilaterally Extremities, no edema, full range of motion, normal strength
[2023-09-11 23:13] VITALS: BP 87/45; PULSE 72; RESP 18; TEMP 37.9; O2SAT 96
[2023-09-11 23:17] VITALS: BP 87/45; PULSE 67; RESP 18; TEMP 37.8; O2SAT 95
--- NOTE | 2023-09-15 09:40 | NUR.NOTE ---
Accessed pt chart to cancel the 2view chest xray order per Radiology request. Nursing Note:
== END 2023-09-11 23:35 | disposition left against medical advice (07) ==
LOC: ER 23:33 → RED 09-12 01:26
PROVIDERS: Emergency Provider Emergency Medicine Emergency Medical Services; PCP Nurse Practitioner Family
DX: R05.9 Cough, unspecified (principal); M79.18 Myalgia, other site; Z53.29 Procedure and treatment not carried out because of patient's decision for other reasons; J06.9 Acute upper respiratory infection, unspecified; Z72.0 Tobacco use
CPT/HCPCS: 80053; 87040; 87637; 99282; 83605; 85025

== ENCOUNTER 2023-10-09 20:57 | Emergency (ER) | payer MEDICAID, SELFPAY ==
[2023-10-09 21:02] VITALS: BP 139/93; PULSE 90; RESP 16; TEMP 36.6; O2SAT 100
--- NOTE | 2023-10-09 21:53 | W.ED.GENAD ---
Discharge Plan Discharge Details Chief Complaint: DrugWithdr/MAT Primary Care Provider: Yulia Miller ED Provider: Judy Wagoner Home Meds and New Rx's Prescriptions: No Action gabapentin 300 mg capsule 300 mg PO TID Patient Comments: TAKE ONE CAPSULE BY MOUTH THREE TIMES A DAY omeprazole 20 mg capsule,delayed release(DR/EC) 20 mg PO DAILY Patient Comments: TAKE ONE CAPSULE BY MOUTH EVERY DAY hydroxyzine HCl 25 mg tablet PRN Patient Comments: TAKE 1 TABLET BY MOUTH 3 TIMES A DAY NEEDED FOR 30 DAYS fluoxetine 20 mg capsule 60 mg PO DAILY Patient Comments: TAKE ONE CAPSULE BY MOUTH EVERY DAY WITH 40MG CAPSULE FOR TOTAL DOSE OF 60MG DAILY aripiprazole 5 mg tablet 10 mg PO DAILY Patient Comments: TAKE ONE TABLET BY MOUTH TWICE A DAY fluoxetine 40 mg capsule 60 mg PO DAILY Patient Comments: TK 2 CS PO QAM Medical Decision Making This is a 43-year-old male patient history of polysubstance abuse presents presents here requesting admission to [facility]. He denies any recent illness. His physical exam is unremarkable he does not appear in. He actually does not appear to be withdrawing. Vital signs are stable. Will provide Phenergan 25 mg for his reports of nausea. Also will give Librium 50 mg for reports of alcohol withdrawal. There are no history of seizures or requiring intubation with withdrawal he states he usually responds well to the Librium. He will be medically cleared for psychiatric evaluation. He did initially report that he was suicidal and would overdose because he cannot go on like this but he does deny suicidal ideation to me stating he just wants help. No labs will be ordered at this time. Will continue to just monitor him in the department. Mental health evaluation is pending report and care of patient will be signed out to Dr. Hanley for final disposition Medical Records Medical records reviewed: Yes I reviewed the patient's medical records. HPI General Mode of arrival: ambulatory. Date/Time Provider Initiated Documentation: 10/09/23 21:02. Limitations to Documentation: no limitations. Information obtained by: patient. HPI Narrative: This is a 43-year-old male patient well-known to the emergency department with a history of drug and alcohol abuse presents here wanting admission to [facility]. He did reach out to them and they state that he cannot be admitted directly there and he needs to do it through the emergency department. When asked if he was suicidal he said he just cannot go on any longer this way and does want help with substance abuse. He did tell the triage nurse that he would overdose but denies any suicidal plan at this time just states he wants help for detoxing and his substance abuse. He states he last drank and used fentanyl approximately 5 hours ago. He is awake alert oriented does not appear impaired is making good contact and appears clinically sober at this time. He reports that he is having nausea retching and signs of withdrawal but on exam is not tremulous with no nausea or vomiting. His vital signs are stable he is not tachycardic. He denies any recent illness. Related Data Home Medications Medication Instructions Recorded Confirmed fluoxetine 40 mg capsule 60 mg PO DAILY 10/09/20 10/09/23 aripiprazole 5 mg tablet 10 mg PO DAILY 10/09/23 10/09/23 fluoxetine 20 mg capsule 60 mg PO DAILY 10/09/23 10/09/23 gabapentin 300 mg capsule 300 mg PO TID 10/09/23 10/09/23 hydroxyzine HCl 25 mg tablet mg PRN 10/09/23 omeprazole 20 mg capsule,delayed 20 mg PO DAILY 10/09/23 10/09/23 release Allergies Allergy/AdvReac Type Severity Reaction Status Date / Time No Known Allergies Allergy Unverified 10/09/23 21:06 General Stated Complaint: DrugWithdr/MAT RAVEN: 2 Review of Systems All systems reviewed & are unremarkable except as noted in HPI and below PFSH All Active Problems URI (upper respiratory infection) (Acute) Suicide ideation (Acute) Polysubstance abuse (Acute) Opioid use disorder (Acute) Nicotine dependence (Acute) Suicidal ideation (Acute) Pancreatitis (Chronic) Depression (Chronic) Opioid dependence on agonist therapy (Acute) Alcohol dependence (Chronic) Polysubstance abuse (Acute) Medical History Acute bronchitis History of osteomyelitis Hepatitis B Hepatitis C Chronic deep vein thrombosis (DVT) Depression Bronchospasm Alcohol withdrawal Polysubstance abuse Suicide ideation Cocaine withdrawal Family History Other Alcohol use disorder Depression Social History Smoking/Tobacco Use Status: Former Tobacco Use Quit Date: 08/13/23 Smoking risk assessment performed?: Yes Alcohol Intake: current Alcohol Intake frequency: 3 or more drinks per day Alcohol type: beer and hard liquor Drug use: Daily Substance use type: marijuana, crack/cocaine, heroin, opiates, painkillers, IV drugs, methamphetamine and prescription drug Details: drinks a case beer a day uses other rec drugs daily. ANTONIO Ospina 10/09/23 Housing: apartment Do you feel safe at home: Yes Do you feel safe in your relationship?: Yes Additional Social history: lives with father at this time,. ANTONIO Ospina 10/09/23 Exam Narrative Exam Narrative: Chronically ill-appearing male older than stated age he is unkempt. Head is atraumatic his EOMs are intact eyes normal appearance he is making good eye contact nonicteric noninjected. Facial features are symmetrical. His skin is dry not shaven. His respirations are even and unlabored neck is supple full range of motion no JVD cardiovascular regular rate and rhythm he is well-perfused. He has Bilateral edema to his hands. He is not tremulous. Neurologic is awake alert and oriented no focal deficits does not appear intoxicated or impaired. Psychiatric his affect is flat he is cooperative makes good eye contact and is acting appropriate. Course Vital Signs Vital signs: Vital Signs Temperature 36.6 C 10/09/23 21:02 Pulse 90 10/09/23 21:02 Respiratory Rate 16 10/09/23 21:02 Blood Pressure 139/93 H 10/09/23 21:02 Pulse Oximetry 100 10/09/23 21:02 Temperature 36.6 C 10/09/23 21:02 Temperature Source Temporal Artery Scan 10/09/23 21:02 Pulse 90 10/09/23 21:02 Respiratory Rate 16 10/09/23 21:02 Respiratory Effort Normal, Non-Labored 10/09/23 21:14 Respiratory Pattern Normal 10/09/23 21:14 Blood Pressure 139/93 H 10/09/23 21:02 Blood Pressure Position Sitting 10/09/23 21:02 Pulse Oximetry 100 10/09/23 21:02 Oxygen Delivery Method Nasal Cannula 10/09/23 21:02 Pain Level 10 10/09/23 21:02 PAWSS Have you Been Recently Intoxicated or Drunk Within the Last 30 days?: Yes Have you Ever Experienced Previous Episodes of Alcohol Withdrawal?: Yes Have you ever Experienced Withdrawal Seizures?: Yes Have you ever Experienced Delirium Tremens(DT)s?: Yes Have you ever undergone Alcohol Rehabilitation Treatment (i.e, inpt ot outpatient treatment programs)?: Yes Have you ever Experienced Blackouts?: Yes Have you ever Combined Alcohol with other Downers within the last 90 days?: Yes Have you ever Combined Alcohol with any other Substance of Abuse during the last 90 days?: Yes Evidence of Increased Autonomic Activity (i.e. HR>120, tremor, sweating, agitation, nausea)?: No Result: 8
[2023-10-09] MEDS: chlordiazePOXIDE 25 MG CAP 50 MG PO (22:01)
[2023-10-09] MEDS: Promethazine 25 MG TAB PO (22:01)
[2023-10-09] MEDS: hydrOXYzine HCL 25 MG TAB PO (23:02)
[2023-10-10] MEDS: Prochlorperazine 10 MG TAB PO (01:26)
[2023-10-10] MEDS: diphenhydrAMINE 25 MG CAP 50 MG PO (01:26)
[2023-10-10] MEDS: Acetaminophen 500 MG TAB 1000 MG PO (01:26)
[2023-10-10 01:28] LABS: Abs Immature Grans 0.02 10^3/uL (0.0-0.06); Absolute Basophil Count 0.07 10^3/uL (0.0-0.2); Absolute Eosinophil Count 0.11 10^3/uL (0.0-0.7); Absolute Lymphocyte Count 3.31 10^3/uL (1.2-3.4); Absolute Monocyte Count 0.56 10^3/uL (0.1-0.8); Absolute Neutrophil Count 2.71 10^3/uL (1.2-6.7); Eosinophils % 1.6; HCT 46.7 % (40.0-50.0); HGB 15.1 g/dL (13.5-17.5); Immature Grans % 0.3; Lymphocytes % 48.8; MCHC 32.3 % (32.0-36.0); MCV 87 fL (80-95); MPV 8.4 fL (8.0-11.0); Monocytes % 8.3; Platelet Count 280 10^3/uL (130-400); RBC 5.39 10^6/uL (4.36-5.78); RDW 14.1 % (11.8-14.1); RDW-SD 44.7 fL; WBC 6.78 10^3/uL (4.4-10.8)
[2023-10-10 01:36] LABS: *AMPHETAMINES SCREEN URINE Negative (Negative); *BARBITURATES SCREEN URINE Negative (Negative); *BENZODIAZEPINES SCREEN URINE Negative (Negative); Cannabinoids THC Negative (Negative); Cocaine Screen,Urine Positive (Negative); METHADONE URINE SCREEN Positive (Negative); OPIATES URINE SCREEN Negative (Negative)
[2023-10-10 01:38] LABS: Tricyclic Antidepressants Negative (Negative)
[2023-10-10 01:46] LABS: Salicylate < 2.8 mg/dL (<2.8)
[2023-10-10 01:48] LABS: ALT 60 U/L (16-63); AST 70 U/L (15-37); Albumin 3.4 g/dL (3.4-5.0); Alkaline Phosphatase 82 U/L (46-116); Anion Gap 9.1 mmol/L (3-11); BUN 8 mg/dL (7-18); Bilirubin, Total 0.4 mg/dL (0.2-1.0); CO2 29.9 mmol/L (21.0-32.0); CREATININE 0.9 mg/dL (0.70-1.30); Chloride 101 mmol/L (98-107); Estimated GFR 108.01 (mL/min/1.73m2); Glucose 95 mg/dL (74-106); Potassium 3.9 mmol/L (3.5-5.1); Sodium 140 mmol/L (136-145); Total Protein 8.8 g/dL (6.4-8.2)
[2023-10-10 01:51] LABS: Acetaminophen < 2 ug/mL (10-30)
[2023-10-10 02:16] LABS: ETHANOL BLOOD 32.2 mg/dL (<10); TSH (W/Ref FT4) 1.79 uIU/mL (0.36-3.74)
--- NOTE | 2023-10-10 06:09 | NUR.NOTE ---
Pt labs and provider note sent over to [facility] for medical clearance
[2023-10-10] MEDS: chlordiazePOXIDE 25 MG CAP 50 MG PO ×3 (06:30→19:15)
--- NOTE | 2023-10-10 07:23 | W.EDPROG ---
Date of service: 10/10/23 Time of Service: 07:24 Medical Decision Making Patient signed out by Judy Wagoner pending mental health evaluation. Patient seen and assessed by mental health, patient will voluntarily seek inpatient psychiatric care. I did perform a medical screening exam, patient appears stable. Abdominal exam demonstrates no abdominal or pelvic tenderness. Laboratory workup was performed and is benign, patient is medically cleared. Daily medications have been placed. Patient will be placed in zone B for continued monitoring until placement. Sign Out Sign Out Data: Sign Out Comment: Patient medically cleared and pending psychiatric consultation currently denying active suicidal ideation passive ideation secondary to substance abuse and desire to stop using at this time. Report and care of patient signed off to Dr. Hanley for final disposition Last updated by Judy Wagoner, AMARILYS at 10/09/23 23:22 Discharge Plan Discharge Details Chief Complaint: DrugWithdr/MAT Clinical Impression: Depression Primary Care Provider: Yulia Miller ED Provider: Boogie Hanley Home Meds and New Rx's Prescriptions: No Action gabapentin 300 mg capsule 300 mg PO TID Patient Comments: TAKE ONE CAPSULE BY MOUTH THREE TIMES A DAY omeprazole 20 mg capsule,delayed release(DR/EC) 20 mg PO DAILY Patient Comments: TAKE ONE CAPSULE BY MOUTH EVERY DAY hydroxyzine HCl 25 mg tablet PRN Patient Comments: TAKE 1 TABLET BY MOUTH 3 TIMES A DAY NEEDED FOR 30 DAYS fluoxetine 20 mg capsule 60 mg PO DAILY Patient Comments: TAKE ONE CAPSULE BY MOUTH EVERY DAY WITH 40MG CAPSULE FOR TOTAL DOSE OF 60MG DAILY aripiprazole 5 mg tablet 10 mg PO DAILY Patient Comments: TAKE ONE TABLET BY MOUTH TWICE A DAY fluoxetine 40 mg capsule 60 mg PO DAILY Patient Comments: TK 2 CS PO QAM
[2023-10-10] MEDS: Gabapentin 300 MG CAP PO ×2 (08:12→19:15)
[2023-10-10] MEDS: Omeprazole 20 MG CAPCR PO (08:13)
[2023-10-10] MEDS: ARIPiprazole 5 MG TAB 10 MG PO (08:13)
[2023-10-10] MEDS: FLUoxetine 20 MG CAP 60 MG PO (08:13)
[2023-10-10 10:20] VITALS: BP 149/91; PULSE 53; RESP 16; TEMP 36.8; O2SAT 96
[2023-10-10] MEDS: Methadone Liquid 10 MG/ML 70 MG PO (11:10)
[2023-10-10 12:53] VITALS: BP 136/79; PULSE 52; RESP 16; TEMP 36.6; O2SAT 96
--- NOTE | 2023-10-10 14:00 | PDOC.MHPN2 ---
Date of service: 10/10/23 Time of Service: 12:00 PHQ-9 Over the last 2 weeks, how often have you been bothered by any of the following problems? 1. Little interest or pleasure in doing things: several days 2. Feeling down, depressed, or hopeless: several days 3. Trouble falling or staying asleep, or sleeping too much: several days 4. Feeling tired or having little energy: several days 5. Poor appetite or overeating: several days 6. Feeling bad about yourself - or that you are a failure or have let yourself and your family down: several days 7. Trouble concentrating on things, such as reading the newspaper or watching television: several days 8. Moving or speaking so slowly that other people could have noticed? - Or the opposite - being so fidgety or restless that you have been moving around a lot more than usual: not at all 9. Thoughts that you would be better off or of hurting yourself in some way: several days Total score: 8 Source: Developed by Drs. Earl Reyes, Colette Lucero, Galen Cadet and colleagues, with an educational von from [employer]. Suicide Severity Rate CSSRS Have you wished you were or wished you could go to sleep and not wake up?: No Have you actually had any thoughts of killing yourself?: Yes CSSRS2 Have you been thinking about how you might do this?: No Have you had these thoughts and had some intention of acting on them?: No Have you started to work out or worked out the details of how to kill yourself? Do you intend to carry out this plan?: Yes CSSRS3 Have you ever done anything, started to do anything or prepared to do anything to end your life?: No CSSRS4 Was this within the past three months?: No Screening Score Total Score: 2 Screening: Positive Mental Health Emergency Note Release [facility] release signed:: Yes Reason for Visit Daily assessment while client is in hospital awaiting hospitalization In the last 2 weeks has the pt presented for ES prior to today?: No Client Information Well Housed: Yes Safety Risk/Harm to Self or Others Current Ideation to Harm Self or Others: No Risk: Does risk to harm exist?: No Risk: Low Risk Duty to warn indicated: No Asssessment/Mental Status Appearance: Other Attitude: Passive and Guarded Behavior: Other Speech: Normal Affect: Cogruent with mood Mood: Sad, Depressed, Anxious and Irritable Thought process: Goal directed Hallucinations: No Delusions: No Attention: Unremarkable Perception: Not impaired Orientation: Fully orientated Memory: Intact Insight: Fair Judgement: Poor Neurovegetative Symptoms Sleep: No change Appetitie: Decrease Energy: Decrease Libido: Not applicable Substance Use: Other Drug Issues: Dependence Do you use nicotine?: Yes Have you used substances in the last 7 days?: yes, daily Additional Issues: Assaultive/Threatening Behavior: No Medical Concerns: No Client engaged in active self harm w/weapon: No Threatening to run away: No Child reported abuse/neglect: No Voluntarily presenting for services: Yes Domestic violence is a concern: No Extreme Psychosis or extreme behavior is present: No Impression Client was in bed and kept dozing off and on while trying to assess. He spoke at a very low tone and seemed disgruntled being in the hospital but also content knowing he would go away and receive the help he needs. Plan/Disposition Recommended Disposition: Hospitalization facilities contacted. Plan: Client will stay on Zone B at [facility] until a placement becomes available. Reports/communication Outcome discussed with: ED/Personnel
[2023-10-10 14:31] VITALS: BP 137/86; PULSE 50; RESP 16; TEMP 36.5; O2SAT 95
--- NOTE | 2023-10-10 16:19 | ED.PROG_ITS ---
Date of service: 10/10/23 Time of Service: 16:19 Medical Decision Making Resting comfortably hemodynamically stable no signs of withdrawal. Calm cooperative. Patient has been accepted at [facility] provider to provider signout given to Parul Banks Sign Out Sign Out Data: Sign Out Comment: Patient medically cleared and pending psychiatric consultation currently denying active suicidal ideation passive ideation secondary to substance abuse and desire to stop using at this time. Report and care of patient signed off to Dr. Hanley for final disposition Last updated by Judy Wagoner NP at 10/09/23 23:22 Sign Out Comment: Patient medically cleared, depressed. Pending voluntary placement into a psychiatric facility. Last updated by Boogie Hanley DO at 10/10/23 07:25 Discharge Plan Disposition Patient Disposition: Psychiatric Hospital/Unit Specific Psychiatric Facility: [facility] Condition: Stable Discharge Details Chief Complaint: DrugWithdr/MAT Clinical Impression: Depression, Substance abuse Primary Care Provider: Yulia Miller ED Provider: Christian Vanessa Home Meds and New Rx's Prescriptions: No Action gabapentin 300 mg capsule 300 mg PO TID Patient Comments: TAKE ONE CAPSULE BY MOUTH THREE TIMES A DAY omeprazole 20 mg capsule,delayed release(DR/EC) 20 mg PO DAILY Patient Comments: TAKE ONE CAPSULE BY MOUTH EVERY DAY hydroxyzine HCl 25 mg tablet PRN Patient Comments: TAKE 1 TABLET BY MOUTH 3 TIMES A DAY NEEDED FOR 30 DAYS fluoxetine 20 mg capsule 20 mg PO DAILY Patient Comments: TAKE ONE CAPSULE BY MOUTH EVERY DAY WITH 40MG CAPSULE FOR TOTAL DOSE OF 60MG DAILY aripiprazole 5 mg tablet 10 mg PO DAILY Patient Comments: TAKE ONE TABLET BY MOUTH TWICE A DAY methadone 10 mg/mL concentrate 70 mg PO DAILY Patient Comments: confirmed w/HUNTER 10/10/23 fluoxetine 40 mg capsule 40 mg PO DAILY Patient Comments: TK 2 CS PO QAM
--- NOTE | 2023-10-10 18:51 | ED.PROG_ITS ---
Date of service: 10/10/23 Time of Service: 17:00 Medical Decision Making 43yo M presenting with depression, polysubstance use, suicidal ideation with plan to OD. Medically cleared. Accepted to [facility] for voluntary admission, doc-to-doc done. Awaiting transport. Transport arranged for 11am 10/11/23. No behavioral issues on my shift. Signed out to oncoming physician, plan remains voluntary admission to with trasnport in the morning. Sign Out Sign Out Data: Sign Out Comment: Patient medically cleared and pending psychiatric consultation currently denying active suicidal ideation passive ideation secondary to substance abuse and desire to stop using at this time. Report and care of patient signed off to Dr. Hanley for final disposition Last updated by Judy Wagoner NP at 10/09/23 23:22 Sign Out Comment: Patient medically cleared, depressed. Pending voluntary placement into a psychiatric facility. Last updated by Boogie Hanley DO at 10/10/23 07:25 Discharge Plan Disposition Patient Disposition: Psychiatric Hospital/Unit Specific Psychiatric Facility: [facility] Condition: Stable Discharge Details Clinical Impression: Depression, Substance abuse Primary Care Provider: Yulia Miller ED Provider: Silvia Quezada Home Meds and New Rx's Prescriptions: No Action gabapentin 300 mg capsule 300 mg PO TID Patient Comments: TAKE ONE CAPSULE BY MOUTH THREE TIMES A DAY omeprazole 20 mg capsule,delayed release(DR/EC) 20 mg PO DAILY Patient Comments: TAKE ONE CAPSULE BY MOUTH EVERY DAY hydroxyzine HCl 25 mg tablet PRN Patient Comments: TAKE 1 TABLET BY MOUTH 3 TIMES A DAY NEEDED FOR 30 DAYS fluoxetine 20 mg capsule 20 mg PO DAILY Patient Comments: TAKE ONE CAPSULE BY MOUTH EVERY DAY WITH 40MG CAPSULE FOR TOTAL DOSE OF 60MG DAILY aripiprazole 5 mg tablet 10 mg PO DAILY Patient Comments: TAKE ONE TABLET BY MOUTH TWICE A DAY methadone 10 mg/mL concentrate 70 mg PO DAILY Patient Comments: confirmed candace/HUNTER 10/10/23 fluoxetine 40 mg capsule 40 mg PO DAILY Patient Comments: TK 2 CS PO QAM
[2023-10-11] MEDS: chlordiazePOXIDE 25 MG CAP 50 MG PO ×2 (00:53→06:46)
[2023-10-11 07:58] VITALS: BP 121/83; PULSE 69; RESP 18; TEMP 36.2; O2SAT 97
[2023-10-11] MEDS: ARIPiprazole 5 MG TAB 10 MG PO (08:25)
[2023-10-11] MEDS: Omeprazole 20 MG CAPCR PO (08:25)
[2023-10-11] MEDS: Methadone Liquid 10 MG/ML 70 MG PO (08:26)
[2023-10-11] MEDS: FLUoxetine 20 MG CAP 60 MG PO (08:26)
[2023-10-11] MEDS: Gabapentin 300 MG CAP PO (08:26)
== END 2023-10-11 11:01 ==
PROVIDERS: Student in an Organized Health Care Education/Training Program; Emergency Provider Emergency Medicine; PCP Nurse Practitioner Family
DX: R45.851 Suicidal ideations (principal); F19.20 Other psychoactive substance dependence, uncomplicated; F10.10 Alcohol abuse, uncomplicated; Z87.891 Personal history of nicotine dependence; F32.A Depression, unspecified
CPT/HCPCS: 00123; 80053; 80307; 96127; 99285; 80320; 80329; 84443; 85025

== ENCOUNTER 2023-12-22 10:43 | Emergency (ER) | payer MEDICAID, SELFPAY ==
[2023-12-22 10:47] VITALS: BP 121/70; PULSE 59; RESP 18; TEMP 36.2; O2SAT 96
--- NOTE | 2023-12-22 10:59 | W.ED.GENAD ---
Discharge Plan Discharge Details Chief Complaint: PsychEval Clinical Impression: Suicidal ideation, Depression Primary Care Provider: Yulia Miller ED Provider: Boogie Hanley Home Meds and New Rx's Prescriptions: No Action gabapentin 300 mg capsule 300 mg PO TID Patient Comments: TAKE ONE CAPSULE BY MOUTH THREE TIMES A DAY hydroxyzine HCl 25 mg tablet 25 mg PO TID PRN Patient Comments: TAKE 1 TABLET BY MOUTH 3 TIMES A DAY NEEDED FOR 30 DAYS fluoxetine 20 mg capsule 20 mg PO DAILY Patient Comments: TAKE ONE CAPSULE BY MOUTH EVERY DAY WITH 40MG CAPSULE FOR TOTAL DOSE OF 60MG DAILY aripiprazole 5 mg tablet 10 mg PO DAILY Patient Comments: TAKE ONE TABLET BY MOUTH TWICE A DAY methadone 10 mg/mL concentrate 90 mg PO DAILY Patient Comments: @ BAJOELLE fluoxetine 40 mg capsule 40 mg PO DAILY Patient Comments: takes w/20mg dose for 60mg total HPI General Date/Time Provider Initiated Documentation: 12/22/23 10:46. HPI Narrative: 43-year-old male with a past medical history of depression, polysubstance abuse, previous overdose, suicidal ideations in the past, presents today for evaluation of depression. Patient states that he was at [facility] this past September which was 3 months ago. He had been doing well there, but when discharged he [facility] fairly [facility], he has not been taking his prescribed medications, he feels suicidal and depressed. He states that he would overdose with fentanyl to kill himself. He daily takes fentanyl and cocaine, also drinks 1/5 of vodka usually every day. He has had withdrawal seizures in the past per the patient. He denies any other complaints at this time. No other modifying factors. He states that he had a half 1/5 of vodka today. Related Data Home Medications Medication Instructions Recorded Confirmed fluoxetine 40 mg capsule 40 mg PO DAILY 10/09/20 12/22/23 aripiprazole 5 mg tablet 10 mg PO DAILY 10/09/23 12/22/23 fluoxetine 20 mg capsule 20 mg PO DAILY 10/09/23 12/22/23 gabapentin 300 mg capsule 300 mg PO TID 10/09/23 12/22/23 hydroxyzine HCl 25 mg tablet 25 mg PO TID PRN 10/09/23 12/22/23 methadone 10 mg/mL oral concentrate 90 mg PO DAILY 10/10/23 12/22/23 Allergies Allergy/AdvReac Type Severity Reaction Status Date / Time No Known Allergies Allergy Unverified 12/22/23 10:49 General Stated Complaint: PsychEval RAVEN: 2 Review of Systems All systems reviewed & are unremarkable except as noted in HPI and below Exam Narrative Exam Narrative: 1.Const: Well-nourished, Well-developed, appearing stated age 2.Eyes: PERRL, no conjunctival injection, and symmetrical lids. 3.ENT: Atraumatic external nose and ears. Moist MM. Neck: Symmetric, trachea midline, No thyromegaly. 4.CVS: +S1/S2, No murmurs or gallops. Peripheral pulses 2+ and equal in all extremities. Brisk capillary refill in all extremities. 5.RESP: Unlabored respiratory effort. Clear to auscultation bilaterally. No wheezes rales or rhonchi 6.GI: Soft, Nontender/Nondistended, No hepatosplenomegaly. No guarding or rebound. 7.MSK: Normocephalic/Atraumatic, Extremities w/o deformity or ttp No cyanosis or clubbing, Normal movement of all extremities 8.Skin: Warm, Dry. No rashes or lesions. 9.Neuro: athletic events scorer II-XII grossly intact. Sensation grossly intact, no focal neurologic deficits. 10.Psych: (AAO) x3. Slightly sad appearing. Course Vital Signs Vital signs: Vital Signs Temperature 36.2 C L 12/22/23 10:47 Pulse 59 L 12/22/23 10:47 Respiratory Rate 18 12/22/23 10:47 Blood Pressure 121/70 12/22/23 10:47 Pulse Oximetry 96 12/22/23 10:47 Temperature 36.2 C L 12/22/23 10:47 Temperature Source Skin 12/22/23 10:47 Pulse 59 L 12/22/23 10:47 Respiratory Rate 18 12/22/23 10:47 Respiratory Effort Normal, Non-Labored 12/22/23 10:50 Blood Pressure 121/70 12/22/23 10:47 Blood Pressure Position Sitting 12/22/23 10:47 Pulse Oximetry 96 12/22/23 10:47 Oxygen Delivery Method Room Air 12/22/23 10:47 Oxygen Flow Rate 0 12/22/23 10:47 Pain Level 8 12/22/23 10:47 Comment back pain 12/22/23 10:47 Medical Decision Making 43-year-old male with a past medical history of depression, polysubstance abuse, previous overdose, suicidal ideations in the past, presents today for evaluation of depression. Patient states that he was at [facility] this past September which was 3 months ago. He had been doing well there, but when discharged he fell off the wagon fairly quickly, he has not been taking his prescribed medications, he feels suicidal and depressed. He states that he would overdose with fentanyl to kill himself. He daily takes fentanyl and cocaine, also drinks 1/5 of vodka usually every day. He has had withdrawal seizures in the past per the patient. He denies any other complaints at this time. No other modifying factors. He states that he had a half 1/5 of vodka today. Exam demonstrates well-appearing male, mildly depressed affect. History of withdrawal symptoms from alcohol in the past. He is on methadone. Concern for his depression and suicidality but also potential withdrawal. Will establish an IV, monitor closely and reassess. Will evaluate for concerning etiologies with plan to send to psychiatric facility if mental health agrees, once medically clear. 3:31 PM Laboratory workup clear, patient medically cleared. Patient now sober. He was seen and assessed by mental health, they agree with plan to get the patient voluntarily for placement at mental health facility, likely [facility]. Patient's UDS is positive for cocaine cannabis and methadone. Patient remained stable. Shows no signs of withdrawal at this time. Will restart his normal psychiatric meds, we will transition to zone B. Patient will be signed out pending placement. Quality:SDOH Health Related Social Needs: No Data to Display PFSH All Active Problems (Updated 12/22/23 @ 15:32 by Boogie Hanley DO) Suicide ideation (Acute) Polysubstance abuse (Acute) Opioid use disorder (Acute) Nicotine dependence (Acute) Suicidal ideation (Acute) Pancreatitis (Chronic) Depression (Chronic) Opioid dependence on agonist therapy (Acute) Alcohol dependence (Chronic) Polysubstance abuse (Acute) Medical History Acute bronchitis History of osteomyelitis Hepatitis B Hepatitis C Chronic deep vein thrombosis (DVT) Depression Bronchospasm Alcohol withdrawal Polysubstance abuse Suicide ideation Cocaine withdrawal Family History Other Alcohol use disorder Depression Social History Smoking/Tobacco Use Status: Current every day Tobacco Type: cigarettes Smoking risk assessment performed?: Yes Alcohol Intake: current Alcohol Intake frequency: 3 or more drinks per day Alcohol type: hard liquor Drug use: Daily Substance use type: marijuana, crack/cocaine, heroin, opiates, painkillers, IV drugs, methamphetamine and prescription drug Details: fentanyl, cocaine, 5th of liquor daily 12/22/23 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 ANTONIO Ospina 10/09/23 PAWSS Have you Been Recently Intoxicated or Drunk Within the Last 30 days?: Yes Have you Ever Experienced Previous Episodes of Alcohol Withdrawal?: Yes Have you ever Experienced Withdrawal Seizures?: Yes Have you ever Experienced Delirium Tremens(DT)s?: No Have you ever undergone Alcohol Rehabilitation Treatment (i.e, inpt ot outpatient treatment programs)?: Yes Have you ever Experienced Blackouts?: No Have you ever Combined Alcohol with other Downers within the last 90 days?: Yes Have you ever Combined Alcohol with any other Substance of Abuse during the last 90 days?: Yes Positive Blood Alcohol level on Presentation? [PCS.BAL]: No Evidence of Increased Autonomic Activity (i.e. HR>120, tremor, sweating, agitation, nausea)?: No Result: 6
[2023-12-22 11:34] LABS: Abs Immature Grans 0.02 10^3/uL (0.0-0.06); Absolute Basophil Count 0.02 10^3/uL (0.0-0.2); Absolute Eosinophil Count 0.31 10^3/uL (0.0-0.7); Absolute Lymphocyte Count 1.64 10^3/uL (1.2-3.4); Absolute Monocyte Count 0.45 10^3/uL (0.1-0.8); Absolute Neutrophil Count 3.09 10^3/uL (1.2-6.7); Basophils % 0.4; Eosinophils % 5.6; HCT 47.7 % (40.0-50.0); HGB 15.7 g/dL (13.5-17.5); Immature Grans % 0.4; Lymphocytes % 29.7; MCH 29.3 pg (27.0-33.0); MCHC 32.9 % (32.0-36.0); MCV 89 fL (80-95); MPV 8.4 fL (8.0-11.0); Monocytes % 8.1; Neutrophils % 55.8; Platelet Count 262 10^3/uL (130-400); RBC 5.35 10^6/uL (4.36-5.78); RDW 16.5 % (11.8-14.1); RDW-SD 53.2 fL; WBC 5.53 10^3/uL (4.4-10.8)
[2023-12-22] MEDS: MAGNESIUM SULFATE 8.12 MEQ, MULTIVITAMIN 10 ML, THIAMINE 100 MG, FOLIC ACID 1 MG in Nor... 168.867 MG IV (11:45)
[2023-12-22 11:56] LABS: *AMPHETAMINES SCREEN URINE Negative (Negative); *BARBITURATES SCREEN URINE Negative (Negative); *BENZODIAZEPINES SCREEN URINE Negative (Negative); Cannabinoids THC Positive (Negative); Cocaine Screen,Urine Positive (Negative); METHADONE URINE SCREEN Positive (Negative); OPIATES URINE SCREEN Negative (Negative)
[2023-12-22 11:57] LABS: Tricyclic Antidepressants Negative (Negative)
[2023-12-22 12:02] LABS: ALT 50 U/L (16-63); AST 55 U/L (15-37); Albumin 3.7 g/dL (3.4-5.0); Alkaline Phosphatase 94 U/L (46-116); BUN 10 mg/dL (7-18); Bilirubin, Total 0.8 mg/dL (0.2-1.0); CREATININE 1.1 mg/dL (0.70-1.30); Calcium 9.4 mg/dL (8.5-10.1); Chloride 101 mmol/L (98-107); ETHANOL BLOOD 31.4 mg/dL (<10); Estimated GFR 84.89 (mL/min/1.73m2); Glucose 77 mg/dL (74-106); Potassium 3.6 mmol/L (3.5-5.1); Sodium 140 mmol/L (136-145); TSH (W/Ref FT4) 1.44 uIU/mL (0.36-3.74)
[2023-12-22 12:11] LABS: Salicylate < 2.8 mg/dL (<2.8)
[2023-12-22 12:12] LABS: Acetaminophen < 2 ug/mL (10-30)
--- NOTE | 2023-12-22 14:51 | CMSP_ITS ---
Date of service: 12/22/23 Time of Service: 14:51 Care Management Safety Plan Status Status: Voluntary Reason for Wait Reason for Wait: Inpatient Admission Safety Plan Safety Plan: VOLUNTARY FOR INPATIENT PSYCHIATRIC STABILIZATION.? Patient is appropriate in all interactions since arriving at [facility]; Pt has demonstrated appropriate coping and communication skills, has articulated his or her needs and concerns and is fully engaged during staff interactions. Safety plan has been established with patient, and care team, to adhere to patient goals, identify restrictions based on behavioral status, address nutrition, and determine allowed personal belongings, tools for hygiene and personal care. Determine level of activity including ambulation, level of supervision, visitors, and determine privileges based on behaviors and level of engagement by pt. SAFETY PLAN: 1. Will remain on suicide precautions. In Paper Clothes 2. Will remain in room under direct supervision of one-on-one staff at all times provided by [employer]; RADHA, CEMENT GRINDING MILL OPERATOR tank house operator helper. 3. May have paper cups, plates, finger foods as well as a cardboard spoon with which to eat meals. 4. Follow [facility] Management of the Admitted Behavioral Health Patient policy. 5. Comfort bath system only, shower permitted with escort at RN discretion. 6. No personal belongings-soft items permitted at RN discretion. 7. Visitors-none at this time. 8. Activities: soft cart items approved per RN discretion. 9.? Bathroom privileges with escort in the ED, available in room without limitation on M/S. 10. Phone: contact limited to family at this time, via cordless phone at RN discretion. 11. Due to VOLUNTARY status, if patient wishes to leave [facility], staff will contact [facility] Crisis Screener ([phone]) and On-Call Software Business Analyst ([phone]) as soon as possible. In the event of elopement, notify [place] [employer] ([phone]). Patient is currently voluntarily at [facility] and seeking inpatient admission when a bed becomes available. [facility] Frontline Supervisor [employer] [facility] will continue seeking placement. Please contact the Corner Cutter Machine Operator Software Business Analyst ([phone]) and [facility] Supervisor [employer] ([phone]) for any needed changes in the Safety Plan. Safety plan has been provided to interdepartmental care team.
--- NOTE | 2023-12-22 16:19 | PDOC.MHCN_ITS ---
Date of service: 12/22/23 Time of Service: 01:30 PHQ-9 Over the last 2 weeks, how often have you been bothered by any of the following problems? 1. Little interest or pleasure in doing things: nearly every day 2. Feeling down, depressed, or hopeless: nearly every day 3. Trouble falling or staying asleep, or sleeping too much: nearly every day 4. Feeling tired or having little energy: nearly every day 5. Poor appetite or overeating: nearly every day 6. Feeling bad about yourself - or that you are a failure or have let yourself and your family down: nearly every day 7. Trouble concentrating on things, such as reading the newspaper or watching television: several days 8. Moving or speaking so slowly that other people could have noticed? - Or the opposite - being so fidgety or restless that you have been moving around a lot more than usual: not at all 9. Thoughts that you would be better off or of hurting yourself in some way: nearly every day Total score: 22 Source: Developed by Drs. Earl Reyes, Colette Lucero, Galen Cadet and colleagues, with an educational von from [employer]. Suicide Severity Rate CSSRS Have you wished you were or wished you could go to sleep and not wake up?: Yes Have you actually had any thoughts of killing yourself?: Yes CSSRS2 Have you been thinking about how you might do this?: Yes Have you had these thoughts and had some intention of acting on them?: Yes Have you started to work out or worked out the details of how to kill yourself? Do you intend to carry out this plan?: No CSSRS3 Have you ever done anything, started to do anything or prepared to do anything to end your life?: Yes CSSRS4 Was this within the past three months?: Yes Screening Score Total Score: 8 Screening: Positive Mental Health Emergency Note Release [facility] release signed:: Yes Reason for Visit Suicidal Ideation, Substance Misuse In the last 2 weeks has the pt presented for ES prior to today?: No Client Information Client is: Adult Outpatient and New Well Housed: No,status: Homeless Unstable housing Safety Risk/Harm to Self or Others Current Ideation to Harm Self or Others: Yes to self. Intent: yes, has intent. Plan: yes,has a plan. Risk: Does risk to harm exist?: yes. Risk: Low Risk Duty to warn indicated: No Asssessment/Mental Status Appearance: Other Attitude: Cooperative Behavior: Unremarkable Speech: Soft Affect: Cogruent with mood Mood: Sad and Depressed Thought process: Circumstational Hallucinations: No Delusions: No Attention: Unremarkable Perception: Not impaired Orientation: Fully orientated Memory: Intact Insight: Poor Judgement: Poor Neurovegetative Symptoms Sleep: Decrease Appetitie: Disordered Interests: Decrease Energy: Decrease Libido: Not applicable Substance Use: ETOH dependence Drug Issues: Dependence Do you use nicotine?: Yes Have you used substances in the last 7 days?: yes, daily Additional Issues: Assaultive/Threatening Behavior: No Medical Concerns: No Client engaged in active self harm w/weapon: No Threatening to run away: No Child reported abuse/neglect: No Voluntarily presenting for services: Yes Domestic violence is a concern: No Extreme Psychosis or extreme behavior is present: No Impression Patient is clearly suffering from SI and withdrawal from opiates and alcohol Resources Reosurces reviewed and given:: Other Plan/Disposition Recommended Disposition: [facility] Services [facility] Services: Therapy, Hospitalization facilities contacted, Therapy and Med management. Plan: Patient will stay on Zone B until an inpatyient bed at a treatment facility opens Person reported agreement to plan: Yes Facilities contacted if Applicable [facility] Not accepted, No bed available [facility] Not accepted, No bed available, [facility] Accepted, Other. Information Sent to [place]: Referral Reports/communication Outcome discussed with: ED/Personnel
[2023-12-22] MEDS: Acetaminophen 500 MG TAB 1000 MG PO (17:03)
[2023-12-22] MEDS: Gabapentin 300 MG CAP PO (20:33)
[2023-12-22] MEDS: chlordiazePOXIDE 25 MG CAP 50 MG PO (20:34)
[2023-12-22] MEDS: hydrOXYzine HCL 25 MG TAB PO (20:52)
--- NOTE | 2023-12-22 22:22 | W.EDPROG ---
Date of service: 12/22/23 Time of Service: 22:22 Medical Decision Making Patient was endorsing feeling slightly shaky, did have fine tremor to bilateral hands, no tongue fasciculation. No diaphoresis. Loaded with Librium 50 mg p.o. Quality:SDOH Health Related Social Needs: No Data to Display Sign Out Sign Out Data: Sign Out Comment: Suicidal ideations, plan is to utilize fentanyl to overdose. Here voluntarily. Daily medications placed. Patient states he has a history of DTs and withdrawal from alcohol, however he has not demonstrated any evidence of withdrawal yet. Will continue to monitor. Last updated by Boogie Hanley DO at 12/22/23 17:00 Discharge Plan Discharge Details Chief Complaint: PsychEval Clinical Impression: Suicidal ideation, Depression Primary Care Provider: Yulia Miller ED Provider: Christian Vanessa Home Meds and New Rx's Prescriptions: No Action gabapentin 300 mg capsule 300 mg PO TID Patient Comments: TAKE ONE CAPSULE BY MOUTH THREE TIMES A DAY hydroxyzine HCl 25 mg tablet 25 mg PO TID PRN Patient Comments: TAKE 1 TABLET BY MOUTH 3 TIMES A DAY NEEDED FOR 30 DAYS fluoxetine 20 mg capsule 20 mg PO DAILY Patient Comments: TAKE ONE CAPSULE BY MOUTH EVERY DAY WITH 40MG CAPSULE FOR TOTAL DOSE OF 60MG DAILY aripiprazole 5 mg tablet 10 mg PO DAILY Patient Comments: TAKE ONE TABLET BY MOUTH TWICE A DAY methadone 10 mg/mL concentrate 90 mg PO DAILY Patient Comments: @ HUNTER fluoxetine 40 mg capsule 40 mg PO DAILY Patient Comments: takes w/20mg dose for 60mg total
--- NOTE | 2023-12-22 22:33 | W.EDPROG ---
Date of service: 12/22/23 Time of Service: 22:33 Medical Decision Making This patient was signed out to me. Please see previous notes for H&P and initial eval. In brief, 43yo M presenting voluntarily with SI. Does have hx of ETOH withdrawal, has received one dose of librium here. Plan for inpatient psychiatric treatment. Awaiting placement. Overnight no acute events. Signed out to oncoming clinician, plan remains as above. Quality:[facility] Health Related Social Needs: No Data to Display Sign Out Sign Out Data: Sign Out Comment: Suicidal ideations, plan is to utilize fentanyl to overdose. Here voluntarily. Daily medications placed. Patient states he has a history of DTs and withdrawal from alcohol, however he has not demonstrated any evidence of withdrawal yet. Will continue to monitor. Last updated by Boogie Hanley DO at 12/22/23 17:00 Sign Out Comment: Voluntary for SI with plan; awaiting placement; slight tremulousness earlier, loaded with librium 50 mg po, resting comfortably Last updated by Christian Vanessa MD at 12/22/23 22:24 Sign Out Comment: 43yo M voluntary, SI, plan to OD on fentanyl. Hx ETOH withdrawal, one dose of librium here. Awaiting placement. Last updated by Silvia Quezada MD at 12/23/23 00:28 Discharge Plan Discharge Details Chief Complaint: PsychEval Clinical Impression: Suicidal ideation, Depression Primary Care Provider: Yulia Miller ED Provider: Silvia Quezada Home Meds and New Rx's Prescriptions: No Action gabapentin 300 mg capsule 300 mg PO TID Patient Comments: TAKE ONE CAPSULE BY MOUTH THREE TIMES A DAY hydroxyzine HCl 25 mg tablet 25 mg PO TID PRN Patient Comments: TAKE 1 TABLET BY MOUTH 3 TIMES A DAY NEEDED FOR 30 DAYS fluoxetine 20 mg capsule 20 mg PO DAILY Patient Comments: TAKE ONE CAPSULE BY MOUTH EVERY DAY WITH 40MG CAPSULE FOR TOTAL DOSE OF 60MG DAILY aripiprazole 5 mg tablet 10 mg PO DAILY Patient Comments: TAKE ONE TABLET BY MOUTH TWICE A DAY methadone 10 mg/mL concentrate 90 mg PO DAILY Patient Comments: @ HUNTER fluoxetine 40 mg capsule 40 mg PO DAILY Patient Comments: takes w/20mg dose for 60mg total
--- NOTE | 2023-12-23 07:21 | W.EDPROG ---
Date of service: 12/23/23 Time of Service: 07:21 Medical Decision Making Patient seeking voluntary placement for depression and SI, no acute issues overnight, resting in bed with no acute complaints, will continue to monitor until safe disposition found Quality:SDAL Health Related Social Needs: No Data to Display Sign Out Sign Out Data: Sign Out Comment: Suicidal ideations, plan is to utilize fentanyl to overdose. Here voluntarily. Daily medications placed. Patient states he has a history of DTs and withdrawal from alcohol, however he has not demonstrated any evidence of withdrawal yet. Will continue to monitor. Last updated by Boogie Hanley DO at 12/22/23 17:00 Sign Out Comment: Voluntary for SI with plan; awaiting placement; slight tremulousness earlier, loaded with librium 50 mg po, resting comfortably Last updated by Christian Vanessa MD at 12/22/23 22:24 Sign Out Comment: 43yo M voluntary, SI, plan to OD on fentanyl. Hx ETOH withdrawal, one dose of librium here. Awaiting placement. Last updated by Silvia Quezada MD at 12/23/23 00:28 Discharge Plan Discharge Details Chief Complaint: PsychEval Clinical Impression: Suicidal ideation, Depression Primary Care Provider: Yulia Miller ED Provider: Regino Del Toro [place] Meds and New Rx's Prescriptions: No Action gabapentin 300 mg capsule 300 mg PO TID Patient Comments: TAKE ONE CAPSULE BY MOUTH THREE TIMES A DAY hydroxyzine HCl 25 mg tablet 25 mg PO TID PRN Patient Comments: TAKE 1 TABLET BY MOUTH 3 TIMES A DAY NEEDED FOR 30 DAYS fluoxetine 20 mg capsule 20 mg PO DAILY Patient Comments: TAKE ONE CAPSULE BY MOUTH EVERY DAY WITH 40MG CAPSULE FOR TOTAL DOSE OF 60MG DAILY aripiprazole 5 mg tablet 10 mg PO DAILY Patient Comments: TAKE ONE TABLET BY MOUTH TWICE A DAY methadone 10 mg/mL concentrate 90 mg PO DAILY Patient Comments: @ HUNTER fluoxetine 40 mg capsule 40 mg PO DAILY Patient Comments: takes w/20mg dose for 60mg total
[2023-12-23 07:50] VITALS: BP 147/79; PULSE 55; RESP 16; TEMP 36.6; O2SAT 93
[2023-12-23] MEDS: FLUoxetine 20 MG CAP PO (08:15)
[2023-12-23] MEDS: Gabapentin 300 MG CAP PO ×3 (08:15→22:58)
[2023-12-23] MEDS: Methadone Liquid 10 MG/ML 90 MG PO (08:15)
[2023-12-23] MEDS: ARIPiprazole 5 MG TAB 10 MG PO (08:15)
[2023-12-23] MEDS: chlordiazePOXIDE 25 MG CAP 50 MG PO (10:32)
--- NOTE | 2023-12-23 16:47 | PDOC.CMPRO ---
Date of service: 12/23/23 Time of Service: 16:47 Care Management Progress Note Progress Note Text Progress Note Text: CM called [facility] for an update; clinician was reported to be on his way to the ED. Per staff, William has been appropriate, and has shown some signs of alcohol withdrawal. [facility] Adameat is interested in accepting him for admission, although the decision was made to hold him overnight to continue to monitor his alcohol withdrawal. No changes to the safety plan today. VOLUNTARY FOR INPATIENT PSYCHIATRIC STABILIZATION.? Patient is appropriate in all interactions since arriving at [facility]; Pt has demonstrated appropriate coping and communication skills, has articulated his or her needs and concerns and is fully engaged during staff interactions. Safety plan has been established with patient, and care team, to adhere to patient goals, identify restrictions based on behavioral status, address nutrition, and determine allowed personal belongings, tools for hygiene and personal care. Determine level of activity including ambulation, level of supervision, visitors, and determine privileges based on behaviors and level of engagement by pt. SAFETY PLAN: 1. Will remain on suicide precautions. In Paper Clothes 2. Will remain in room under direct supervision of one-on-one staff at all times provided by [employer]; RADHA, DIRECT MARKETING ANALYST skoog patching machine operator. 3. May have paper cups, plates, finger foods as well as a cardboard spoon with which to eat meals. 4. Follow [facility] Management of the Admitted Behavioral Health Patient policy. 5. Comfort bath system only, shower permitted with escort at RN discretion. 6. No personal belongings-soft items permitted at RN discretion. 7. Visitors-none at this time. 8. Activities: soft cart items approved per RN discretion. 9.? Bathroom privileges with escort in the ED, available in room without limitation on M/S. 10. Phone: contact limited to family at this time, via cordless phone at RN discretion. 11. Due to VOLUNTARY status, if patient wishes to leave [facility], staff will contact [facility] Crisis Screener ([phone]) and On-Call Nursing Program Coordinator ([phone]) as soon as possible. In the event of elopement, notify [facility] Police ([phone]). Patient is currently voluntarily at [facility] and seeking inpatient admission when a bed becomes available. [facility] Frontline Concrete Gun Operator will continue seeking placement. Please contact the Monument Installer Nursing Program Coordinator ([phone]) and [facility] Concrete Gun Operator ([phone]) for any needed changes in the Safety Plan. Safety plan has been provided to interdepartmental care team.
[2023-12-23] MEDS: diphenhydrAMINE 25 MG CAP (20:30)
[2023-12-23] MEDS: Acetaminophen 325 MG TAB (20:30)
--- NOTE | 2023-12-23 20:36 | NUR.NOTE ---
Nursing Note: RN called to room by [employer], Pt complaining of increased anxiety as well as headache and lower back pain. CIWA repeated, notified Anna COLINDRES. When in room pt is fidgety and shaking legs. However when pt was observed via camera resting in bed, pt is calm with no fidgeting/movements noted. DiSabatino to bedside to assess pt. Per MD, verbal order for 25mg benadryl PO and 650mg PO Tylenol. Pt medicated.
--- NOTE | 2023-12-23 22:52 | W.EDPROG ---
Date of service: 12/23/23 Time of Service: 22:52 Medical Decision Making Resting comfortably no acute distress, no evidence of withdrawal. Patient requesting medications for anxiety, trialed Benadryl and 1 mg p.o. Ativan. Quality:[facility] Health Related Social Needs: No Data to Display Sign Out Sign Out Data: Sign Out Comment: Suicidal ideations, plan is to utilize fentanyl to overdose. Here voluntarily. Daily medications placed. Patient states he has a history of DTs and withdrawal from alcohol, however he has not demonstrated any evidence of withdrawal yet. Will continue to monitor. Last updated by Boogie Hanley DO at 12/22/23 17:00 Sign Out Comment: Voluntary for SI with plan; awaiting placement; slight tremulousness earlier, loaded with librium 50 mg po, resting comfortably Last updated by Christian Vanessa MD at 12/22/23 22:24 Sign Out Comment: 43yo M voluntary, SI, plan to OD on fentanyl. Hx ETOH withdrawal, one dose of librium here. Awaiting placement. Last updated by Silvia Quezada MD at 12/23/23 00:28 Sign Out Comment: Voluntary for SI, brother excepted but would not take him today due to having Librium this morning for mild alcohol withdrawal, will reassess tomorrow. No other issues during shift Last updated by Regino Del Toro MD at 12/23/23 14:19 Discharge Plan Disposition Condition: Stable Discharge Details Chief Complaint: PsychEval Clinical Impression: Suicidal ideation, Depression Primary Care Provider: Yulia Miller ED Provider: Christian Vanessa Home Meds and New Rx's Prescriptions: No Action gabapentin 300 mg capsule 300 mg PO TID Patient Comments: TAKE ONE CAPSULE BY MOUTH THREE TIMES A DAY hydroxyzine HCl 25 mg tablet 25 mg PO TID PRN Patient Comments: TAKE 1 TABLET BY MOUTH 3 TIMES A DAY NEEDED FOR 30 DAYS fluoxetine 20 mg capsule 20 mg PO DAILY Patient Comments: TAKE ONE CAPSULE BY MOUTH EVERY DAY WITH 40MG CAPSULE FOR TOTAL DOSE OF 60MG DAILY aripiprazole 5 mg tablet 10 mg PO DAILY Patient Comments: TAKE ONE TABLET BY MOUTH TWICE A DAY methadone 10 mg/mL concentrate 90 mg PO DAILY Patient Comments: @ BAJOELLE fluoxetine 40 mg capsule 40 mg PO DAILY Patient Comments: takes w/20mg dose for 60mg total
[2023-12-23] MEDS: LORazepam 1 MG TAB PO (22:59)
--- NOTE | 2023-12-24 03:18 | ED.PROG_ITS ---
Date of service: 12/23/23 Time of Service: 23:15 Medical Decision Making This patient was signed out to me. Please see previous notes for H&P and initial eval. In brief, 43yo male presenting voluntary with SI. [facility] with concerns about potential for ETOH withdrawal so not accepted yesterday, CIWA acceptable without treatment during the day today. Possibly [facility] tomorrow, Pending placement. Overnight no acute events. Signed out to oncoming clinician, plan remains as above. Quality:[facility] Health Related Social Needs: No Data to Display Sign Out Sign Out Data: Sign Out Comment: Suicidal ideations, plan is to utilize fentanyl to overdose. Here voluntarily. Daily medications placed. Patient states he has a history of DTs and withdrawal from alcohol, however he has not demonstrated any evidence of withdrawal yet. Will continue to monitor. Last updated by Boogie Hanley DO at 12/22/23 17:00 Sign Out Comment: Voluntary for SI with plan; awaiting placement; slight tremulousness earlier, loaded with librium 50 mg po, resting comfortably Last updated by Christian Vanessa MD at 12/22/23 22:24 Sign Out Comment: 43yo M voluntary, SI, plan to OD on fentanyl. Hx ETOH withdrawal, one dose of librium here. Awaiting placement. Last updated by Silvia Quezada MD at 12/23/23 00:28 Sign Out Comment: Voluntary for SI, brother excepted but would not take him today due to having Librium this morning for mild alcohol withdrawal, will reassess tomorrow. No other issues during shift Last updated by Regino Del Toro MD at 12/23/23 14:19 Sign Out Comment: given ativan and benadryl for anxiety, no evidence of withdrawal; awaiting reevaluation in AM for placement Last updated by Christian Vanessa MD at 12/23/23 22:54 Sign Out Comment: 43yo M voluntary SI, possibly [facility] tomorrow. Denied today 2/t concerns for possible withdrawal as he was given librium. Last updated by Silvia Quezada MD at 12/24/23 03:46 Discharge Plan Disposition Condition: Stable Discharge Details Chief Complaint: PsychEval Clinical Impression: Suicidal ideation, Depression Primary Care Provider: Yulia Miller ED Provider: Silvia Quezada Home Meds and New Rx's Prescriptions: No Action gabapentin 300 mg capsule 300 mg PO TID Patient Comments: TAKE ONE CAPSULE BY MOUTH THREE TIMES A DAY hydroxyzine HCl 25 mg tablet 25 mg PO TID PRN Patient Comments: TAKE 1 TABLET BY MOUTH 3 TIMES A DAY NEEDED FOR 30 DAYS fluoxetine 20 mg capsule 20 mg PO DAILY Patient Comments: TAKE ONE CAPSULE BY MOUTH EVERY DAY WITH 40MG CAPSULE FOR TOTAL DOSE OF 60MG DAILY aripiprazole 5 mg tablet 10 mg PO DAILY Patient Comments: TAKE ONE TABLET BY MOUTH TWICE A DAY methadone 10 mg/mL concentrate 90 mg PO DAILY Patient Comments: @ JOELLE fluoxetine 40 mg capsule 40 mg PO DAILY Patient Comments: takes w/20mg dose for 60mg total
[2023-12-24 07:26] VITALS: BP 136/80; PULSE 58; RESP 16; TEMP 36.6; O2SAT 95
[2023-12-24] MEDS: Acetaminophen 500 MG TAB 1000 MG PO (07:52)
[2023-12-24] MEDS: Gabapentin 300 MG CAP PO (08:20)
[2023-12-24] MEDS: ARIPiprazole 5 MG TAB 10 MG PO (08:20)
[2023-12-24] MEDS: FLUoxetine 20 MG CAP PO (08:20)
[2023-12-24] MEDS: Methadone Liquid 10 MG/ML 90 MG PO (08:21)
--- NOTE | 2023-12-24 10:01 | W.EDPROG ---
Date of service: 12/24/23 Time of Service: 10:01 Medical Decision Making Patient was signed out by my colleague Lily Horowitz. We are pending placement. Patient did have mild headache. He has been given acetaminophen. Dr. Jacobs was performed yesterday. Personal reassessment of the patient at this time demonstrates a CIWA score 0. Patient has no agitation or concerning behavioral abnormalities otherwise at this time. Patient stable for transfer to [facility]. Patient has been accepted. I have extensively reviewed the treatment plan and discharge instructions with the patient. I have addressed all patient concerns at this time. The patient was made aware of what symptoms to monitor for that would warrant a return to the emergency department. Discussed the plan with the patient, they demonstrate verbal understanding and agreement with our assessment and plan at this time. The documentation in this chart was dictated using Sp[employer] dictation software. Please excuse any dictation errors. Quality:[facility] Health Related Social Needs: No Data to Display Sign Out Sign Out Data: Sign Out Comment: Suicidal ideations, plan is to utilize fentanyl to overdose. Here voluntarily. Daily medications placed. Patient states he has a history of DTs and withdrawal from alcohol, however he has not demonstrated any evidence of withdrawal yet. Will continue to monitor. Last updated by Boogie Hanley DO at 12/22/23 17:00 Sign Out Comment: Voluntary for SI with plan; awaiting placement; slight tremulousness earlier, loaded with librium 50 mg po, resting comfortably Last updated by Christian Vanessa MD at 12/22/23 22:24 Sign Out Comment: 43yo M voluntary, SI, plan to OD on fentanyl. Hx ETOH withdrawal, one dose of librium here. Awaiting placement. Last updated by Silvia Quezada MD at 12/23/23 00:28 Sign Out Comment: Voluntary for SI, brother excepted but would not take him today due to having Librium this morning for mild alcohol withdrawal, will reassess tomorrow. No other issues during shift Last updated by Regino Del Toro MD at 12/23/23 14:19 Sign Out Comment: given ativan and benadryl for anxiety, no evidence of withdrawal; awaiting reevaluation in AM for placement Last updated by Christian Vanessa MD at 12/23/23 22:54 Sign Out Comment: 43yo M voluntary SI, possibly [facility] tomorrow. Denied today 2/t concerns for possible withdrawal as he was given librium. Last updated by Silvia Quezada MD at 12/24/23 03:46 Discharge Plan Disposition Patient Disposition: Psychiatric Hospital/Unit Specific Psychiatric Facility: [facility] Condition: Stable Discharge Details Chief Complaint: PsychEval Clinical Impression: Suicidal ideation, Depression Primary Care Provider: Yulia Miller ED Provider: Boogie Hanley Home Meds and New Rx's Prescriptions: No Action gabapentin 300 mg capsule 300 mg PO TID Patient Comments: TAKE ONE CAPSULE BY MOUTH THREE TIMES A DAY hydroxyzine HCl 25 mg tablet 25 mg PO TID PRN Patient Comments: TAKE 1 TABLET BY MOUTH 3 TIMES A DAY NEEDED FOR 30 DAYS fluoxetine 20 mg capsule 20 mg PO DAILY Patient Comments: TAKE ONE CAPSULE BY MOUTH EVERY DAY WITH 40MG CAPSULE FOR TOTAL DOSE OF 60MG DAILY aripiprazole 5 mg tablet 10 mg PO DAILY Patient Comments: TAKE ONE TABLET BY MOUTH TWICE A DAY methadone 10 mg/mL concentrate 90 mg PO DAILY Patient Comments: @ HUNTER fluoxetine 40 mg capsule 40 mg PO DAILY Patient Comments: takes w/20mg dose for 60mg total
--- NOTE | 2023-12-24 10:30 | NUR.NOTE ---
Upon initial assessment of pt this morning, he continues to report subjective symptoms that contributed to his CIWA score. Vital signs remain stable, pt appears comfortable between care, resting calmly in bed. Dr. Hanley evaluated pt and states that he does not feel that he is exhibiting signs of withdrawal at this time. Pt cleared for transfer to [place]. Pt is agreeable to this plan. Report given to Allison, including details of pts initial CIWA score this morning and re-evaluation by . Nursing Note:
--- NOTE | 2023-12-24 11:00 | NUR.NOTE ---
Belongings returned to pt, picked pt up for transport to [facility]. Paperwork for pt given to for [facility].
== END 2023-12-24 11:03 ==
PROVIDERS: Emergency Provider Student in an Organized Health Care Education/Training Program; PCP Nurse Practitioner Family
DX: R45.851 Suicidal ideations (principal); F32.A Depression, unspecified; Z79.899 Other long term (current) drug therapy; F19.10 Other psychoactive substance abuse, uncomplicated; F10.90 Alcohol use, unspecified, uncomplicated; R51.9 Headache, unspecified
CPT/HCPCS: 00123; 80053; 80307; 96127; 96365; 96366; 99285; 80320; 80329; 84443; 85025; J3411; J3475

== ENCOUNTER 2024-01-12 17:06 | Emergency (ER) | payer MEDICAID, SELFPAY ==
[2024-01-12 17:11] VITALS: BP 148/91; PULSE 77; RESP 16; TEMP 37.1; O2SAT 99
[2024-01-12 17:13] VITALS: BP 148/91; PULSE 71
[2024-01-12 17:48] LABS: Lactate 1.5 mmol/L (0.6-1.4)
[2024-01-12 17:52] LABS: Abs Immature Grans 0.02 10^3/uL (0.0-0.06); Absolute Basophil Count 0.03 10^3/uL (0.0-0.2); Absolute Eosinophil Count 0.12 10^3/uL (0.0-0.7); Absolute Lymphocyte Count 2.15 10^3/uL (1.2-3.4); Absolute Monocyte Count 0.65 10^3/uL (0.1-0.8); Absolute Neutrophil Count 4.03 10^3/uL (1.2-6.7); Basophils % 0.4; Eosinophils % 1.7; HGB 12.3 g/dL (13.5-17.5); Immature Grans % 0.3; Lymphocytes % 30.7; MCH 29.7 pg (27.0-33.0); MCHC 32.4 % (32.0-36.0); MCV 92 fL (80-95); MPV 8.8 fL (8.0-11.0); Monocytes % 9.3; Neutrophils % 57.6; Platelet Count 274 10^3/uL (130-400); RBC 4.14 10^6/uL (4.36-5.78); RDW 15.8 % (11.8-14.1); RDW-SD 53.1 fL
[2024-01-12 17:53] LABS: ESR 41 mm/hr (0-15)
--- NOTE | 2024-01-12 17:53 | ED.GENADUL_ITS ---
Discharge Plan Disposition Patient Disposition: Home Condition: Stable Discharge Details Clinical Impression: Cellulitis Primary Care Provider: Yulia Miller ED Provider: Lisa Reyna Home Meds and New Rx's Prescriptions: New cefpodoxime 200 mg tablet 200 mg PO BID Qty: 20 0RF Rx Instructions: must administer with a meal/food clindamycin HCl 150 mg capsule 450 mg PO TID Qty: 90 0RF Saccharomyces boulardii [Florastor] 250 mg capsule 250 mg PO BID Qty: 20 0RF Continued gabapentin 300 mg capsule 300 mg PO TID Patient Comments: TAKE ONE CAPSULE BY MOUTH THREE TIMES A DAY hydroxyzine HCl 25 mg tablet 25 mg PO TID PRN Patient Comments: TAKE 1 TABLET BY MOUTH 3 TIMES A DAY NEEDED FOR 30 DAYS fluoxetine 20 mg capsule 20 mg PO DAILY Patient Comments: TAKE ONE CAPSULE BY MOUTH EVERY DAY WITH 40MG CAPSULE FOR TOTAL DOSE OF 60MG DAILY aripiprazole 5 mg tablet 10 mg PO DAILY Patient Comments: TAKE ONE TABLET BY MOUTH TWICE A DAY methadone 10 mg/mL concentrate 90 mg PO DAILY Patient Comments: @ BAART buspirone 10 mg tablet 10 mg PO BID Patient Comments: TAKE ONE TABLET BY MOUTH TWICE A DAY omeprazole 20 mg capsule,delayed release(DR/EC) 20 mg PO DAILY Patient Comments: TAKE ONE CAPSULE BY MOUTH EVERY DAY fluoxetine 40 mg capsule 40 mg PO DAILY Patient Comments: takes w/20mg dose for 60mg total Discharge Instructions Instructions: Cellulitis (ED) Additional Instructions: We talked about admission, your preference is to be discharged home I recommend elevating is much as possible Take the 2 antibiotics as well as the Florastor as prescribed Also recommend eating yogurt daily with probiotics Recheck in 48 hours recommended unless this is dramatically worsening in which case I recommend earlier return Use your compression stockings during the day is much as possible Referrals: Yulia Miller [Primary Care Provider] - 2 days HPI General Date/Time Provider Initiated Documentation: 01/12/24 17:16 . HPI Narrative: This 43-year-old gentleman with history of polysubstance abuse, last use of IV heroin approximately 3 months ago presents with recurrent cellulitis to left lower extremity, was recently about a viral and completed a 10-day cycle of doxycycline, presents today secondary to persistent swelling and redness. Denies any fever or chills. Took his antibiotic as prescribed. Denies any chest pain or shortness of breath. Denies any back pain or ranges complaints at this time. Related Data Home Medications Medication Instructions Recorded Confirmed fluoxetine 40 mg capsule 40 mg PO DAILY 10/09/20 01/12/24 aripiprazole 5 mg tablet 10 mg PO DAILY 10/09/23 01/12/24 fluoxetine 20 mg capsule 20 mg PO DAILY 10/09/23 01/12/24 gabapentin 300 mg capsule 300 mg PO TID 10/09/23 01/12/24 hydroxyzine HCl 25 mg tablet 25 mg PO TID PRN 10/09/23 01/12/24 methadone 10 mg/mL oral concentrate 90 mg PO DAILY 10/10/23 01/12/24 Saccharomyces boulardii 250 mg 250 mg PO BID #20 caps 01/12/24 capsule (Florastor) buspirone 10 mg tablet 10 mg PO BID 01/12/24 01/12/24 cefpodoxime 200 mg tablet 200 mg PO BID #20 tabs 01/12/24 clindamycin HCl 150 mg capsule 450 mg (3 x 150 mg) PO TID #90 caps 01/12/24 omeprazole 20 mg capsule,delayed 20 mg PO DAILY 01/12/24 01/12/24 release Previous Rx's Medication Instructions Recorded Saccharomyces boulardii 250 mg 250 mg PO BID #20 caps 01/12/24 capsule (Florastor) cefpodoxime 200 mg tablet 200 mg PO BID #20 tabs 01/12/24 clindamycin HCl 150 mg capsule 450 mg (3 x 150 mg) PO TID #90 caps 01/12/24 Allergies Allergy/AdvReac Type Severity Reaction Status Date / Time No Known Allergies Allergy Unverified 01/12/24 17:13 General Stated Complaint: Cellulitis RAVEN: 3 Course Vital Signs Vital signs: Vital Signs Temperature 37.1 C 01/12/24 17:11 Pulse 77 01/12/24 17:11 Respiratory Rate 16 01/12/24 17:11 Blood Pressure 148/91 H 01/12/24 17:11 Pulse Oximetry 99 01/12/24 17:11 Temperature 37.1 C 01/12/24 17:11 Temperature Source Oral 01/12/24 17:11 Pulse 77 01/12/24 17:11 Respiratory Rate 16 01/12/24 17:11 Blood Pressure 148/91 H 01/12/24 17:11 Blood Pressure Position Sitting 01/12/24 17:11 Pulse Oximetry 99 01/12/24 17:11 Oxygen Delivery Method Room Air 01/12/24 17:11 Oxygen Flow Rate 0 01/12/24 17:11 Pain Level 8 01/12/24 17:11 Lab/Test Results Lab/Test Results: 01/12/24 17:40 Blood Blood Culture - Pending 01/12/24 17:26 Blood Blood Culture - Pending Laboratory Tests Range/Units 01/12/24 17:40 WBC (4.4-10.8) 10^3/uL 7.00 RBC (4.36-5.78) 10^6/uL 4.14 L Hgb (13.5-17.5) g/dL 12.3 L Hct (40.0-50.0) % 38.0 L MCV (80-95) fL 92 MCH (27.0-33.0) pg 29.7 MCHC (32.0-36.0) % 32.4 RDW (11.8-14.1) % 15.8 H Plt Count (130-400) 10^3/uL 274 MPV (8.0-11.0) fL 8.8 Immature Gran % 0.3 Neutrophils % 57.6 Lymphocytes % 30.7 Monocytes % 9.3 Eosinophils % 1.7 Basophils % 0.4 Nucleated RBC % (0.0-0.3) % 0.0 Absolute Neutrophils (1.2-6.7) 10^3/uL 4.03 Absolute Lymphocytes (1.2-3.4) 10^3/uL 2.15 Absolute Monocytes (0.1-0.8) 10^3/uL 0.65 Absolute Eosinophils (0.0-0.7) 10^3/uL 0.12 Absolute Basophils (0.0-0.2) 10^3/uL 0.03 VBG Lactate (0.6-1.4) mmol/L 1.5 H Medical Decision Making This 43-year-old male right presents with report left lower leg cellulitis for the past several weeks, history of recurrent episodes No crepitus, CT was ordered for further evaluation, shows subcutaneous edema without emphysema Warm to the touch, afebrile and otherwise no evidence of systemic illness, no leukocytosis, lactate 1.5 We talked about admission as patient has technically failed outpatient treatments, he was on doxycycline and finished yesterday reports symptoms have improved however still experiencing pain and redness Patient would like to be discharged home as he has some family matters that need to be taking care of, we will place patient on extension of antibiotics, I will treat with clindamycin and cefpodoxime for full broad-spectrum coverage, this will not treat Pseudomonas however patient is on methadone and concern for QTc prolongation so we will hold on a fluoroquinolone at this time Placed on Florastor to prevent C. difficile Patient denies any chest pain or shortness of breath. Denies any fever or chills. He is not currently using any illicit drugs Return precautions reviewed and patient expressed understanding Patient is fully alert, oriented, of decisional capacity, compression stockings were applied Recheck in 48 hours recommended and will need to return for IV antibiotics and admission should his symptoms continue to worsen Quality:SDOH Health Related Social Needs: No Data to Display PFSH All Active Problems (Updated 01/12/24 @ 20:10 by SYL Smalls) Cellulitis (Acute) Suicide ideation (Acute) Polysubstance abuse (Acute) Opioid use disorder (Acute) Nicotine dependence (Acute) Suicidal ideation (Acute) Pancreatitis (Chronic) Depression (Chronic) Opioid dependence on agonist therapy (Acute) Alcohol dependence (Chronic) Polysubstance abuse (Acute) Medical History Acute bronchitis History of osteomyelitis Hepatitis B Hepatitis C Chronic deep vein thrombosis (DVT) Depression Bronchospasm Alcohol withdrawal Polysubstance abuse Suicide ideation Cocaine withdrawal Family History Other Alcohol use disorder Depression Social History Smoking/Tobacco Use Status: Current every day Tobacco Type: cigarettes Smoking risk assessment performed?: Yes Alcohol Intake: current Alcohol Intake frequency: 3 or more drinks per day Alcohol type: hard liquor Drug use: Daily Substance use type: marijuana, crack/cocaine, heroin, opiates, painkillers, IV drugs, methamphetamine and prescription drug Details: fentanyl, cocaine, 5th of liquor daily 12/22/23 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 BhaveshRN 10/09/23
[2024-01-12 17:55] VITALS: BP 148/91; PULSE 77; RESP 16; TEMP 37.1; O2SAT 99
[2024-01-12] MEDS: Ketorolac 15 MG/ML VIAL 7.5 MG IVP (17:55)
[2024-01-12 18:05] LABS: ALT 29 U/L (16-63); AST 25 U/L (15-37); Albumin 3.1 g/dL (3.4-5.0); Alkaline Phosphatase 69 U/L (46-116); Anion Gap 8.5 mmol/L (3-11); BUN 4 mg/dL (7-18); Bilirubin, Total 0.3 mg/dL (0.2-1.0); CO2 28.5 mmol/L (21.0-32.0); CREATININE 0.7 mg/dL (0.70-1.30); Calcium 8.5 mg/dL (8.5-10.1); Chloride 106 mmol/L (98-107); Estimated GFR 116.52 (mL/min/1.73m2); Glucose 82 mg/dL (74-106); Sodium 143 mmol/L (136-145); Total Protein 7.7 g/dL (6.4-8.2)
[2024-01-12] MEDS: Omnipaque 350 MG/ML 100 ML BTL IJ (18:56)
[2024-01-12] MEDS: Normal Saline Flush 10 ML SYR IVP (18:57)
[2024-01-12] MEDS: Normal Saline - Diluent 50 ML VIAL IJ (18:57)
--- NOTE | 2024-01-12 18:57 | DI.CT_ITS ---
Exam(s) CT LOWER EXTREMITY LT W EXAM: CT LOWER EXTREMITY LT W CLINICAL HISTORY: cellulitis, eval for abscess. TECHNIQUE: Imaging Protocol: Axial computed tomography images with coronal and sagittal reformatted images were created and reviewed. CONTRAST MATERIAL: Intravenous: Omnipaque 350 Contrast volume:structured data in ml Contrast route:I V - Oral: yes / no COMPARISON: No exams were available for comparison FINDINGS: Soft tissues: There is a diffuse cellulitis pattern throughout the entire calf. There is no discrete focal fluid collection. There is no radiopaque foreign body. Osseous: No fractures evident. No evidence of osteomyelitis. Benign bone island noted in the talar dome. IMPRESSION: Diffuse subcutaneous edema in the left calf suggestive of diffuse cellulitis. There is no discrete a bscess evident. No evidence of osteomyelitis. RADIATION DOSE DELIVERED: Total DLP DATA REPOSITORY: All CT scans at this facility are submitted to the National Radiology Data Registry (NRDR) Dose Index Registry (DIR) with the [employer] (A[employer]). RADIATION OPTIMIZATION: All CT scans at this facility use at least one of these dose optimization te chniques: automated exposure control; mA and/or kV adjustment per patient size (includes targeted exa ms where dose is matched to clinical indication); or iterative reconstruction.
--- NOTE | 2024-01-12 19:50 | DI.VRAD_ITS ---
PROCEDURE INFORMATION: Exam: CT Left Lower Extremity With Contrast; Lower Leg Exam date and time: 01/12/2024 6:23 PM Age: 43 years old Clinical indication: Left lower leg cellulitis, eval for abscess TECHNIQUE: Imaging protocol: CT of the left lower extremity with intravenous contrast was performed. Exam focused on the lower leg. Radiation optimization: All CT scans at this facility use at least one of these dose optimization techniques: automated exposure control; mA and/or kV adjustment per patient size (includes targeted exams where dose is matched to clinical indication); or iterative reconstruction. Contrast material: [id number]; Contrast volume: 100 ml; Contrast route: INTRAVENOUS (IV); COMPARISON: CR XR TIB/FIB LT 03/28/2023 6:04 PM FINDINGS: Bones/joints: Three-vesesel runoff to the left ankle / left foot. No acute fracture. No focal osseous lesion. No CT evidence to suggest osteomyelitis. Soft tissues: Left knee / left tib-fib / left ankle region subcutaneous edema. No discrete soft tissue abscess. IMPRESSION: 1. Left knee / left tib-fib / left ankle region subcutaneous edema. No discrete soft tissue abscess. 2. No CT evidence to suggest osteomyelitis. Dictated and Authenticated by: Ricardo Hernández MD. Ordering:NORM Gonzalez MD
[2024-01-12 20:23] VITALS: BP 148/91; PULSE 77; RESP 16; TEMP 37.1; O2SAT 99
[2024-01-12] MEDS: Cefpodoxime 200 MG TAB 400 MG PO (20:23)
[2024-01-12] MEDS: Clindamycin 150 MG CAP 450 MG PO (20:23)
== END 2024-01-12 20:31 | disposition home or self-care (01) ==
PROVIDERS: Emergency Provider Physician Assistant; PCP Nurse Practitioner Family
DX: L03.116 Cellulitis of left lower limb (principal); F17.210 Nicotine dependence, cigarettes, uncomplicated
CPT/HCPCS: 36415; 80053; 85652; 87040; 96374; 99285; 73701; 83605; 85025; 86140; 99284; J1885; J3490

== ENCOUNTER 2024-03-24 06:39 | Emergency (ER) | payer MEDICAID, SELFPAY ==
[2024-03-24 06:43] VITALS: BP 142/89; PULSE 63; RESP 19; TEMP 36.8; O2SAT 98
[2024-03-24 06:57] VITALS: BP 142/89; PULSE 60; RESP 18; TEMP 36.6; O2SAT 96
--- NOTE | 2024-03-24 07:05 | ED.GENADUL_ITS ---
Discharge Plan Discharge Details Chief Complaint: Cellulitis Primary Care Provider: Unknown,Unknown ED Provider: Silvia Quezada Home Meds and New Rx's Prescriptions: No Action gabapentin 300 mg capsule 300 mg PO TID Patient Comments: TAKE ONE CAPSULE BY MOUTH THREE TIMES A DAY hydroxyzine HCl 25 mg tablet 25 mg PO TID PRN Patient Comments: TAKE 1 TABLET BY MOUTH 3 TIMES A DAY NEEDED FOR 30 DAYS fluoxetine 20 mg capsule 20 mg PO DAILY Patient Comments: TAKE ONE CAPSULE BY MOUTH EVERY DAY WITH 40MG CAPSULE FOR TOTAL DOSE OF 60MG DAILY aripiprazole 5 mg tablet 10 mg PO DAILY Patient Comments: TAKE ONE TABLET BY MOUTH TWICE A DAY methadone 10 mg/mL concentrate 90 mg PO DAILY Patient Comments: @ BAJOELLE buspirone 10 mg tablet 10 mg PO BID Patient Comments: TAKE ONE TABLET BY MOUTH TWICE A DAY omeprazole 20 mg capsule,delayed release(DR/EC) 20 mg PO DAILY Patient Comments: TAKE ONE CAPSULE BY MOUTH EVERY DAY cefpodoxime 200 mg tablet 200 mg PO BID Qty: 20 0RF Rx Instructions: must administer with a meal/food clindamycin HCl 150 mg capsule 450 mg PO TID Qty: 90 0RF Saccharomyces boulardii [Florastor] 250 mg capsule 250 mg PO BID Qty: 20 0RF fluoxetine 40 mg capsule 40 mg PO DAILY Patient Comments: takes w/20mg dose for 60mg total HPI General Mode of arrival: ambulatory . Date/Time Provider Initiated Documentation: 03/24/24 06:40 . Limitations to Documentation: no limitations . Information obtained by: patient . HPI Narrative: 43yo M with hx polysubstance including IV drugs, and hx recurrent left lower extremity cellulitis most recently 'a few months ago', presenting with left leg redness and pain. Two days ago began to feel unwell, nasuea, vomiting, & diarrhea. Non bloody nonbilious emesis. Non bloody stool. No abdominal pain. Feels like he can't keep anything down. Overnight noticed redness and pain to his left langford. Pain is severe but he has not been able to take any pain medications 2/t vomiting. No numbness or tingling to LLE. No fevers or chills. He is otherwise in his usual state of health. Related Data Home Medications Medication Instructions Recorded Confirmed fluoxetine 40 mg capsule 40 mg PO DAILY 10/09/20 03/24/24 aripiprazole 5 mg tablet 10 mg PO DAILY 10/09/23 03/24/24 fluoxetine 20 mg capsule 20 mg PO DAILY 10/09/23 03/24/24 gabapentin 300 mg capsule 300 mg PO TID 10/09/23 03/24/24 hydroxyzine HCl 25 mg tablet 25 mg PO TID PRN 10/09/23 03/24/24 methadone 10 mg/mL oral concentrate 90 mg PO DAILY 10/10/23 03/24/24 Saccharomyces boulardii 250 mg 250 mg PO BID #20 caps 01/12/24 03/24/24 capsule (Florastor) buspirone 10 mg tablet 10 mg PO BID 01/12/24 03/24/24 cefpodoxime 200 mg tablet 200 mg PO BID #20 tabs 01/12/24 clindamycin HCl 150 mg capsule 450 mg (3 x 150 mg) PO TID #90 caps 01/12/24 03/24/24 omeprazole 20 mg capsule,delayed 20 mg PO DAILY 01/12/24 03/24/24 release Previous Rx's Medication Instructions Recorded Saccharomyces boulardii 250 mg 250 mg PO BID #20 caps 01/12/24 capsule (Florastor) cefpodoxime 200 mg tablet 200 mg PO BID #20 tabs 01/12/24 clindamycin HCl 150 mg capsule 450 mg (3 x 150 mg) PO TID #90 caps 01/12/24 Allergies Allergy/AdvReac Type Severity Reaction Status Date / Time No Known Allergies Allergy Verified 03/24/24 06:50 General Stated Complaint: Cellulitis RAVEN: 3 Review of Systems Narrative: see HPI Exam Narrative Exam Narrative: General: Alert, non-toxic, in no acute distress. Head: Normocephalic, atraumatic Neck: Trachea midline, ?Neck supple. ENT: ?MMM.? Cardiac: ?RRR, no murmurs appreciated Resp: No respiratory distress. CTAB. Abd: ?Soft, non-distended, nontender : ?No suprapubic tenderness. Extremities: ?No deformities.? No peripheral edema. 2+ DP pulses symmetric bilaterally. Sensation inatct to light touch throughout LLE. Erythema and warmth to entirety of anterior langford, wrapping around to calf. No crepitus. Mildly TTP. No ulcers, palpable abscess, or skin breakdown. Neurologic: GCS 15. ? Moves all extremities freely against gravity Course Vital Signs Vital signs: Vital Signs Temperature 36.8 C 03/24/24 06:43 Pulse 63 03/24/24 06:43 Respiratory Rate 19 03/24/24 06:43 Blood Pressure 142/89 H 03/24/24 06:43 Pulse Oximetry 98 03/24/24 06:43 Temperature 36.6 C 03/24/24 06:57 Temperature Source Temporal Artery Scan 03/24/24 06:57 Pulse 60 03/24/24 06:57 Respiratory Rate 18 03/24/24 06:57 Respiratory Effort Normal, Non-Labored 03/24/24 06:53 Blood Pressure 142/89 H 03/24/24 06:57 Pulse Oximetry 96 03/24/24 06:57 Oxygen Delivery Method Room Air 03/24/24 06:57 Oxygen Flow Rate 0 03/24/24 06:43 Pain Level 10 03/24/24 06:57 Medical Decision Making 43yo M with hx polysubstance including IV drugs, and hx recurrent left lower extremity cellulitis most recently 'a few months ago', presenting with left leg redness and pain. Two days of N/V/D and general malaise, overnight last night noted pain and redness to left langford. No fevers. Vital signs reassuring on arrival. Clear erythema to left anterior langford with mild tenderness. No crepitus or severe pain with palpation to suggest necrotizing soft tissue infection and no abdominal tenderness to suggest obstruction/appendicitis/surgical intrabdominal pathology; would not get surgery consult or CT imaging. Given systemic symptoms and history of IV drugs use, will treat initially wtih IV clindamycin, IVFB, ylenol/toradol/reglan for symptoms. Will risk stratify with labs. If laboratory workup reassuring and able to tolerate PO would discharge home on PO abx. Signed out to jillian beal. Medical Records Medical records reviewed: Yes I reviewed the patient's medical records. Medical records narrative: note [facility] ED visit january 2024 Quality:SDOH Health Related Social Needs: No Data to Display PFSH All Active Problems (Updated 02/12/24 @ 00:08 by MEGGAN PAULA) Suicide ideation (Acute) Polysubstance abuse (Acute) Opioid use disorder (Acute) Nicotine dependence (Acute) Suicidal ideation (Acute) Pancreatitis (Chronic) Depression (Chronic) Opioid dependence on agonist therapy (Acute) Alcohol dependence (Chronic) Polysubstance abuse (Acute) Medical History Acute bronchitis History of osteomyelitis Hepatitis B Hepatitis C Chronic deep vein thrombosis (DVT) Depression Bronchospasm Alcohol withdrawal Polysubstance abuse Suicide ideation Cocaine withdrawal Family History Other Alcohol use disorder Depression Social History Smoking/Tobacco Use Status: Current every day Tobacco Type: cigarettes Smoking risk assessment performed?: Yes Alcohol Intake: current Alcohol Intake frequency: 3 or more drinks per day Alcohol type: hard liquor Drug use: Daily Substance use type: marijuana, crack/cocaine, heroin, opiates, painkillers, IV drugs, methamphetamine and prescription drug Details: fentanyl, cocaine, 5th of liquor daily as per patient Housing: homeless Do you feel safe at home: Yes Do you feel safe in your relationship?: Yes PAWSS Have you Been Recently Intoxicated or Drunk Within the Last 30 days?: Yes Have you Ever Experienced Previous Episodes of Alcohol Withdrawal?: Yes Have you ever Experienced Withdrawal Seizures?: No Have you ever Experienced Delirium Tremens(DT)s?: Yes Have you ever undergone Alcohol Rehabilitation Treatment (i.e, inpt ot outpatient treatment programs)?: No Have you ever Experienced Blackouts?: Yes Have you ever Combined Alcohol with other Downers within the last 90 days?: No Have you ever Combined Alcohol with any other Substance of Abuse during the last 90 days?: Yes Result: 6
[2024-03-24] MEDS: Ketorolac 15 MG/ML VIAL IVP (07:42)
[2024-03-24] MEDS: Metoclopramide 10 MG/2 ML VIAL IVP (07:43)
[2024-03-24] MEDS: ACETAMINOPHEN 1,000 MG/100 ML BTL 400 MG IVPB (07:43)
[2024-03-24] MEDS: Normal Saline 1,000 ML 1000 ML IV (07:43)
[2024-03-24] MEDS: CLINDAMYCIN 600 MG/50 ML BAG 100 MG IVPB (07:44)
[2024-03-24 07:52] LABS: ESR 43 mm/hr (0-15)
[2024-03-24 07:54] LABS: Abs Immature Grans 0.06 10^3/uL (0.0-0.06); Absolute Basophil Count 0.05 10^3/uL (0.0-0.2); Absolute Eosinophil Count 0.47 10^3/uL (0.0-0.7); Absolute Lymphocyte Count 2.05 10^3/uL (1.2-3.4); Absolute Monocyte Count 1.08 10^3/uL (0.1-0.8); Absolute Neutrophil Count 8.03 10^3/uL (1.2-6.7); Basophils % 0.4 %; HCT 46.7 % (40.0-50.0); HGB 15.2 g/dL (13.5-17.5); Immature Grans % 0.5 %; Lymphocytes % 17.5 %; MCH 29.5 pg (27.0-33.0); MCHC 32.5 % (32.0-36.0); MCV 91 fL (80-95); MPV 9.1 fL (8.0-11.0); Monocytes % 9.2 %; Neutrophils % 68.4 %; Platelet Count 236 10^3/uL (130-400); RBC 5.15 10^6/uL (4.36-5.78); RDW 14.7 % (11.8-14.1); RDW-SD 48.7 fL; WBC 11.74 10^3/uL (4.4-10.8)
[2024-03-24 07:56] LABS: Lactate 1.1 mmol/L (0.6-1.4)
[2024-03-24 08:15] LABS: ALT 16 U/L (16-63); AST 17 U/L (15-37); Alkaline Phosphatase 85 U/L (46-116); Anion Gap 4.7 mmol/L (3-11); BUN 9 mg/dL (7-18); Bilirubin, Total 0.6 mg/dL (0.2-1.0); CO2 32.3 mmol/L (21.0-32.0); Chloride 98 mmol/L (98-107); Estimated GFR 95.18 (mL/min/1.73m2); Glucose 95 mg/dL (74-106); Potassium 3.2 mmol/L (3.5-5.1); Sodium 135 mmol/L (136-145); Total Protein 8.6 g/dL (6.4-8.2)
[2024-03-24 08:31] LABS: Procalcitonin 5.3 ng/mL
--- NOTE | 2024-03-24 09:16 | ED.PROG_ITS ---
Date of service: 03/24/24 Time of Service: 09:23 Medical Decision Making Patient was signed out to me by my colleague Dr. Neil. Please refer to HPI, physical exam, assessment and plan. At time of signout we are awaiting reassessment labs. Laboratory workup has come back, minimal elevation in white count, very mild left shift. White count is only 11. ESR and CRP are mildly elevated. Lactate normal at 1.1. Electrolytes stable. Patient shows no evidence of sepsis or septic shock at this stage clinically. He is resting comfortably. No tachycardia or hypotension. Patient was given a dose of IV clindamycin. Patient stable for outpatient therapy/management at this time based on current clinical assessment. Patient will be discharged with clindamycin 450 mg every 6 hours prescription. Discussed red flags which to return. I have extensively reviewed the treatment plan and discharge instructi ons with the patient. I have addressed all patient concerns at this time. The patient was made aware of what symptoms to monitor for that would warrant a return to the emergency department. Discussed the plan with the patient, they demonstrate verbal understanding and agreement with our assessment and plan at this time. The documentation in this chart was dictated using [employer] dictation software. Please excuse any dictation errors. Quality:SDOH Health Related Social Needs: No Data to Display Sign Out Sign Out Data: Sign Out Comment: 43yo M, hx IV drug use, recurrent cellulitis, here with 2 days of N/V/D and one night or LLE erythema and pain. Getting tylenol/toradol/reglan & IV clindamycin, IVFB. Pending labs; if reassuring and taking PO likely dc home on PO abx. Last updated by Silvia Quezada MD at 03/24/24 07:19 Discharge Plan Disposition Patient Disposition: Home Condition: Good Discharge Details Clinical Impression: Cellulitis of left leg Primary Care Provider: Unknown,Unknown ED Provider: Boogie Hanley Home Meds and New Rx's Prescriptions: New clindamycin HCl 150 mg capsule 450 mg PO QID 10 Days Qty: 120 0RF No Action gabapentin 300 mg capsule 300 mg PO TID Patient Comments: TAKE ONE CAPSULE BY MOUTH THREE TIMES A DAY hydroxyzine HCl 25 mg tablet 25 mg PO TID PRN Patient Comments: TAKE 1 TABLET BY MOUTH 3 TIMES A DAY NEEDED FOR 30 DAYS fluoxetine 20 mg capsule 20 mg PO DAILY Patient Comments: TAKE ONE CAPSULE BY MOUTH EVERY DAY WITH 40MG CAPSULE FOR TOTAL DOSE OF 60MG DAILY aripiprazole 5 mg tablet 10 mg PO DAILY Patient Comments: TAKE ONE TABLET BY MOUTH TWICE A DAY methadone 10 mg/mL concentrate 90 mg PO DAILY Patient Comments: @ HUNTER buspirone 10 mg tablet 10 mg PO BID Patient Comments: TAKE ONE TABLET BY MOUTH TWICE A DAY omeprazole 20 mg capsule,delayed release(DR/EC) 20 mg PO DAILY Patient Comments: TAKE ONE CAPSULE BY MOUTH EVERY DAY cefpodoxime 200 mg tablet 200 mg PO BID Qty: 20 0RF Rx Instructions: must administer with a meal/food clindamycin HCl 150 mg capsule 450 mg PO TID Qty: 90 0RF Saccharomyces boulardii [Florastor] 250 mg capsule 250 mg PO BID Qty: 20 0RF fluoxetine 40 mg capsule 40 mg PO DAILY Patient Comments: takes w/20mg dose for 60mg total Discharge Instructions Instructions: Cellulitis (Skin Infection), Adult ED Additional Instructions: At this time you have evidence of cellulitis. Please take the antibiotic clindamycin as directed. Please make sure to take yogurt with live culture or a probiotic while on the antibiotic to help prevent diarrhea. If you notice any worsening of your symptoms, or any new symptoms such as vomiting, diarrhea, fever, chills, shortness of breath, chest pain, numbness, weakness, or fainting , please return immediately to the emergency department for reevaluation. Please follow up with your primary care provider as soon as possible for reassessment and reevaluation. As always, it was a pleasure participating in your medical care today.
[2024-03-24 09:37] VITALS: BP 131/85; PULSE 51; RESP 12; TEMP 36.6; O2SAT 98
== END 2024-03-24 09:38 | disposition home or self-care (01) ==
PROVIDERS: Student in an Organized Health Care Education/Training Program; Emergency Provider Student in an Organized Health Care Education/Training Program
DX: L53.9 Erythematous condition, unspecified (principal); L03.116 Cellulitis of left lower limb; F19.10 Other psychoactive substance abuse, uncomplicated; F17.210 Nicotine dependence, cigarettes, uncomplicated
CPT/HCPCS: 00123; 36415; 80053; 84145; 85652; 96365; 96368; 96375; 99284; 83605; 85025; 86140; J0131; J0737; J1885; J2765

== ENCOUNTER 2024-03-24 23:57 | Emergency (ER) | payer MEDICAID, SELFPAY ==
[2024-03-25] VITALS: BP 127/75; PULSE 74; RESP 16; TEMP 36.6; O2SAT 97
--- NOTE | 2024-03-25 00:10 | ED.GENADUL_ITS ---
Discharge Plan Disposition Patient Disposition: Home Condition: Good Discharge Details Clinical Impression: Vomiting, Cellulitis Primary Care Provider: Unknown,Unknown ED Provider: Silvia Quezada Home Meds and New Rx's Prescriptions: New metoclopramide HCl [Reglan] 10 mg tablet 10 mg PO Q6H PRNQty: 10 0RF Continued methadone 10 mg/mL concentrate 90 mg PO DAILY Patient Comments: @ BAART cefpodoxime 200 mg tablet 200 mg PO BID Qty: 20 0RF Rx Instructions: must administer with a meal/food clindamycin HCl 150 mg capsule 450 mg PO TID Qty: 90 0RF clindamycin HCl 150 mg capsule 450 mg PO QID 10 Days Qty: 120 0RF Discontinued gabapentin 300 mg capsule 300 mg PO TID Patient Comments: TAKE ONE CAPSULE BY MOUTH THREE TIMES A DAY hydroxyzine HCl 25 mg tablet 25 mg PO TID PRN Patient Comments: TAKE 1 TABLET BY MOUTH 3 TIMES A DAY NEEDED FOR 30 DAYS fluoxetine 20 mg capsule 20 mg PO DAILY Patient Comments: TAKE ONE CAPSULE BY MOUTH EVERY DAY WITH 40MG CAPSULE FOR TOTAL DOSE OF 60MG DAILY aripiprazole 5 mg tablet 10 mg PO DAILY Patient Comments: TAKE ONE TABLET BY MOUTH TWICE A DAY buspirone 10 mg tablet 10 mg PO BID Patient Comments: TAKE ONE TABLET BY MOUTH TWICE A DAY omeprazole 20 mg capsule,delayed release(DR/EC) 20 mg PO DAILY Patient Comments: TAKE ONE CAPSULE BY MOUTH EVERY DAY Saccharomyces boulardii [Florastor] 250 mg capsule 250 mg PO BID Qty: 20 0RF fluoxetine 40 mg capsule 40 mg PO DAILY Patient Comments: takes w/20mg dose for 60mg total Discharge Instructions Instructions: Nausea and vomiting in adults Additional Instructions: Reglan up to every 6 hours as needed for vomiting. Continue your antibitoics. Call your primary care doctor today to schedule an appointment within 48 hours to follow up on your visit today. Discuss your low potassium and sodium at that visit. Return to the emergency department for new or worsening symptoms including fever, abdominal pain, or inability to keep down fluids or medications. HPI General Mode of arrival: ambulatory . Date/Time Provider Initiated Documentation: 03/24/24 23:58 . Limitations to Documentation: no limitations . Information obtained by: patient and old records reviewed . HPI Narrative: 43yo M with hx polysubstance use including IV drugs as well as hx recurrently LLE cellulitis, seen in this ED yesterday for N/V and cellulitis, presenting today with recurrent vomiting and inability to tolerate PO. Reports his leg feels much better, less painful, less hot. Feels like he has not been able to keep anything down today,including difficulty keeping down his medications. No fevers, lightheadedness, or abdominal pain. He is otherwise in his usual state of health with no new symptoms since he was last seen. Related Data Home Medications Medication Instructions Recorded Confirmed methadone 10 mg/mL oral concentrate 90 mg PO DAILY 10/10/23 03/25/24 cefpodoxime 200 mg tablet 200 mg PO BID #20 tabs 01/12/24 03/25/24 clindamycin HCl 150 mg capsule 450 mg (3 x 150 mg) PO TID #90 caps 01/12/24 03/25/24 clindamycin HCl 150 mg capsule 450 mg (3 x 150 mg) PO QID 10 days 03/24/24 03/25/24 #120 caps metoclopramide HCl 10 mg tablet 10 mg PO Q6H PRN #10 tabs 03/25/24 (Reglan) Previous Rx's Medication Instructions Recorded cefpodoxime 200 mg tablet 200 mg PO BID #20 tabs 01/12/24 clindamycin HCl 150 mg capsule 450 mg (3 x 150 mg) PO TID #90 caps 01/12/24 clindamycin HCl 150 mg capsule 450 mg (3 x 150 mg) PO QID 10 days 03/24/24 #120 caps metoclopramide HCl 10 mg tablet 10 mg PO Q6H PRN #10 tabs 03/25/24 (Reglan) Allergies Allergy/AdvReac Type Severity Reaction Status Date / Time No Known Allergies Allergy Verified 03/25/24 00:04 General Stated Complaint: Nausea/Vomit/Diar RAVEN: 3 Review of Systems Narrative: see HPI Exam Narrative Exam Narrative: General: Alert, non-toxic, in no acute distress. Head: Normocephalic, atraumatic Neck: Trachea midline, ?Neck supple. ENT: ?MMM.? Cardiac: ?RRR, no murmurs appreciated Resp: No respiratory distress. CTAB. Abd: ?Soft, non-distended, nontender : ?No suprapubic tenderness. Extremities: ?No deformities.? No peripheral edema. 2+ DP pulses symmetric bilaterally. Erythema and warmth to anterior langford, wrapping around to calf, slightly retrated from marked outline. No crepitus. Nontender to palpation. No ulcers, palpable abscess, or skin breakdown. Neurologic: GCS 15. ? Moves all extremities freely against gravity Course Vital Signs Vital signs: Vital Signs Temperature 36.6 C 03/25/24 00:00 Pulse 74 03/25/24 00:00 Respiratory Rate 16 03/25/24 00:00 Blood Pressure 127/75 03/25/24 00:00 Pulse Oximetry 97 03/25/24 00:00 Temperature 36.6 C 03/25/24 00:00 Temperature Source Skin 03/25/24 00:00 Pulse 74 03/25/24 00:00 Respiratory Rate 16 03/25/24 00:00 Respiratory Effort Normal, Non-Labored 03/25/24 00:05 Blood Pressure 127/75 03/25/24 00:00 Blood Pressure Position Sitting 03/25/24 00:00 Pulse Oximetry 97 03/25/24 00:00 Oxygen Delivery Method Room Air 03/25/24 00:00 Oxygen Flow Rate 0 03/25/24 00:00 Pain Level 0 03/25/24 00:00 Medical Decision Making 43yo M with hx polysubstance use including IV drugs as well as hx recurrently LLE cellulitis, seen in this ED yesterday for N/V and cellulitis, presenting today with recurrent vomiting and inability to tolerate PO. Reports his leg feels much better, less painful, less hot. Feels like he has not been able to keep anything down today,including difficulty keeping down his medications. No new symptoms since he was last seen. See prior notes for details of yesterday's evaluation; of note, vomiting preceded both cellulitis and prescription for antibiotics. Was discharged home on clindamycin, no antiemetics. Vital signs reassuring on arrival. Not septic. Leg appears slightly improved from my evaluation yesterday and abdomen remains entirely non-tender and not suspicious for surgical intraabdominal pathology. Will give IVFB, reglan, and trend labs to compared to yesterday. Labs reviewed as below, CBC reassuring with WBC improved from yesterday, CMP with mild hyponatremia (131 down from 135) and hypokalemia (3.1 from 3.2) likely 2/t vomiting. Lactate reassuring, <2.0. On reassessment patient reports feeling much better. Vital signs and abdominal exam remain reassuring. PO challenged and tolerated well, grayson kelley and cynthia crackers. Patient requested discharge home which is reasonable; prescribed short course of reglan. Discharged instructions and return precautions were reviewed with patient who verbalized understanding. All questions were answered and he is in full agreement with the plan. Medical Records Medical records reviewed: Yes I reviewed the patient's medical records. Lab Data Lab results reviewed: Yes I reviewed the patient's lab results. Labs: Laboratory Tests Range/Units 03/25/24 00:47 WBC (4.4-10.8) 10^3/uL 6.84 RBC (4.36-5.78) 10^6/uL 5.02 Hgb (13.5-17.5) g/dL 14.7 Hct (40.0-50.0) % 45.5 MCV (80-95) fL 91 MCH (27.0-33.0) pg 29.3 MCHC (32.0-36.0) % 32.3 RDW (11.8-14.1) % 14.6 H Plt Count (130-400) 10^3/uL 227 MPV (8.0-11.0) fL 9.0 Immature Gran % % 0.3 Neutrophils % % 52.2 Lymphocytes % % 32.9 Monocytes % % 7.9 Eosinophils % % 6.1 Basophils % % 0.6 Nucleated RBC % (0.0-0.3) % 0.0 Absolute Neutrophils (1.2-6.7) 10^3/uL 3.57 Absolute Lymphocytes (1.2-3.4) 10^3/uL 2.25 Absolute Monocytes (0.1-0.8) 10^3/uL 0.54 Absolute Eosinophils (0.0-0.7) 10^3/uL 0.42 Absolute Basophils (0.0-0.2) 10^3/uL 0.04 VBG Lactate (0.6-1.4) mmol/L 1.8 H Sodium (136-145) mmol/L 131 L Potassium (3.5-5.1) mmol/L 3.1 L Chloride (98-107) mmol/L 98 Carbon Dioxide (21.0-32.0) mmol/L 25.9 Anion Gap (3-11) mmol/L 7.1 BUN (7-18) mg/dL 10 Creatinine (0.70-1.30) mg/dL 0.8 Est GFR (CKD-EPI 2020) (mL/min/1.73m2) 111.92 Glucose (74-106) mg/dL 92 Calcium (8.5-10.1) mg/dL 8.7 Total Bilirubin (0.2-1.0) mg/dL 0.3 AST (15-37) U/L 19 ALT (16-63) U/L 15 L Alkaline Phosphatase (46-116) U/L 85 Total Protein (6.4-8.2) g/dL 7.9 Albumin (3.4-5.0) g/dL 2.8 L Quality:SDOH Health Related Social Needs: No Data to Display PFSH All Active Problems (Updated 03/25/24 @ 03:07 by Silvia Quezada MD) Cellulitis (Acute) Vomiting (Acute) Cellulitis of left leg (Acute) Suicide ideation (Acute) Polysubstance abuse (Acute) Opioid use disorder (Acute) Nicotine dependence (Acute) Suicidal ideation (Acute) Pancreatitis (Chronic) Depression (Chronic) Opioid dependence on agonist therapy (Acute) Alcohol dependence (Chronic) Polysubstance abuse (Acute) Medical History Acute bronchitis History of osteomyelitis Hepatitis B Hepatitis C Chronic deep vein thrombosis (DVT) Depression Bronchospasm Alcohol withdrawal Polysubstance abuse Suicide ideation Cocaine withdrawal Family History Other Alcohol use disorder Depression Social History Smoking/Tobacco Use Status: Current every day Tobacco Type: cigarettes Smoking risk assessment performed?: Yes Alcohol Intake: current Alcohol Intake frequency: 3 or more drinks per day Alcohol type: hard liquor Drug use: Daily Substance use type: marijuana, crack/cocaine, heroin, opiates, painkillers, IV drugs, methamphetamine and prescription drug Details: fentanyl, cocaine, 5th of liquor daily as per patient . last use a few days ago 03/25/24 MG Housing: apartment Do you feel safe at home: Yes Do you feel safe in your relationship?: Yes PAWSS Have you Been Recently Intoxicated or Drunk Within the Last 30 days?: Yes Have you Ever Experienced Previous Episodes of Alcohol Withdrawal?: Yes Have you ever Experienced Withdrawal Seizures?: No Have you ever Experienced Delirium Tremens(DT)s?: No Have you ever undergone Alcohol Rehabilitation Treatment (i.e, inpt ot out patient treatment programs)?: Yes Have you ever Experienced Blackouts?: No Have you ever Combined Alcohol with other Downers within the last 90 days?: Yes Have you ever Combined Alcohol with any other Substance of Abuse during the last 90 days?: Yes Positive Blood Alcohol level on Presentation? [PCS.BAL]: Yes Evidence of Increased Autonomic Activity (i.e. HR>120, tremor, sweating, agitation, nausea)?: No Result: 6
[2024-03-25 00:39] VITALS: BP 127/75; PULSE 74; RESP 16; TEMP 36.6; O2SAT 97
[2024-03-25] MEDS: Normal Saline 1,000 ML 1000 ML IV (00:50)
[2024-03-25] MEDS: Metoclopramide 10 MG/2 ML VIAL IVP (00:50)
[2024-03-25 00:52] LABS: Lactate 1.8 mmol/L (0.6-1.4)
[2024-03-25 00:57] LABS: Abs Immature Grans 0.02 10^3/uL (0.0-0.06); Absolute Basophil Count 0.04 10^3/uL (0.0-0.2); Absolute Eosinophil Count 0.42 10^3/uL (0.0-0.7); Absolute Lymphocyte Count 2.25 10^3/uL (1.2-3.4); Absolute Monocyte Count 0.54 10^3/uL (0.1-0.8); Absolute Neutrophil Count 3.57 10^3/uL (1.2-6.7); Basophils % 0.6 %; Eosinophils % 6.1 %; HCT 45.5 % (40.0-50.0); HGB 14.7 g/dL (13.5-17.5); Immature Grans % 0.3 %; Lymphocytes % 32.9 %; MCH 29.3 pg (27.0-33.0); MCHC 32.3 % (32.0-36.0); MCV 91 fL (80-95); Monocytes % 7.9 %; Neutrophils % 52.2 %; Platelet Count 227 10^3/uL (130-400); RBC 5.02 10^6/uL (4.36-5.78); RDW 14.6 % (11.8-14.1); RDW-SD 48.4 fL; WBC 6.84 10^3/uL (4.4-10.8)
[2024-03-25 01:11] LABS: ALT 15 U/L (16-63); AST 19 U/L (15-37); Albumin 2.8 g/dL (3.4-5.0); Alkaline Phosphatase 85 U/L (46-116); Anion Gap 7.1 mmol/L (3-11); BUN 10 mg/dL (7-18); Bilirubin, Total 0.3 mg/dL (0.2-1.0); CO2 25.9 mmol/L (21.0-32.0); CREATININE 0.8 mg/dL (0.70-1.30); Calcium 8.7 mg/dL (8.5-10.1); Chloride 98 mmol/L (98-107); Estimated GFR 111.92 (mL/min/1.73m2); Glucose 92 mg/dL (74-106); Potassium 3.1 mmol/L (3.5-5.1); Sodium 131 mmol/L (136-145); Total Protein 7.9 g/dL (6.4-8.2)
[2024-03-25] MEDS: Potassium Chloride 20 MEQ TABCR 40 MEQ PO (01:30)
[2024-03-25 03:05] VITALS: BP 122/77; PULSE 57; RESP 14; TEMP 37.1; O2SAT 99
[2024-03-25 03:21] VITALS: BP 122/77; PULSE 57; RESP 14; TEMP 37.1; O2SAT 99
== END 2024-03-25 03:21 | disposition home or self-care (01) ==
PROVIDERS: Emergency Provider Student in an Organized Health Care Education/Training Program
DX: R11.2 Nausea with vomiting, unspecified (principal); L03.116 Cellulitis of left lower limb; F17.210 Nicotine dependence, cigarettes, uncomplicated; Z86.718 Personal history of other venous thrombosis and embolism
CPT/HCPCS: 36415; 80053; 96360; 99284; 83605; 85025; 99283; J2765

== ENCOUNTER 2024-03-31 04:37 | Emergency (ER) | payer MEDICAID, SELFPAY ==
[2024-03-31] VITALS (21 sets, daily range): BP systolic 152–180; BP diastolic 78–114; PULSE 54–72; RESP 8–21; TEMP 36.6; O2SAT 96–100
--- NOTE | 2024-03-31 04:52 | W.ED.GENAD ---
Discharge Plan Discharge Details Chief Complaint: ETOHWithdr Primary Care Provider: Unknown,Unknown ED Provider: Earl Henry Deaver Meds and New Rx's Prescriptions: No Action methadone 10 mg/mL concentrate 90 mg PO DAILY Patient Comments: @ [facility] General Mode of arrival: ambulatory. Date/Time Provider Initiated Documentation: 03/31/24 04:43. Limitations to Documentation: no limitations. Information obtained by: patient, RN notes reviewed and old records reviewed. HPI Narrative: Patient presents to ED with complaint of depression, hopelessness, substance abuse, persistent abdominal pain and vomiting over the last week. Has been using fentanyl, cocaine, alcohol. He is on methadone. Has stopped all of his other medications. Has been seen in the ED a couple of times for recurrent cellulitis most recent less than a week ago. At that time also having abdominal pain and vomiting. He is currently homeless. He feels that he is pretty much hit rock bottom. He has had alcohol withdrawal in the past described as severe but without DTs or seizures per him. He has a chronic constant upper abdominal pain with recurrent vomiting. He has been unable to keep any food down. He continues to drink so that he does not go into withdrawal. He has not attempted to harm himself but is at the point where he knows he requires help. Related Data Home Medications Medication Instructions Recorded Confirmed methadone 10 mg/mL oral concentrate 90 mg PO DAILY 10/10/23 03/31/24 Allergies Allergy/AdvReac Type Severity Reaction Status Date / Time No Known Allergies Allergy Verified 03/31/24 04:51 General Stated Complaint: ETOHWithdr RAVEN: 2 Review of Systems Narrative: Per HPI Exam Narrative Exam Narrative: Const: WDWN male in NAD. VS per triage. HEENT: NC/AT. Normal facial exam. Neck: Supple. Trachea midline. Lungs: Normal respiratory effort. Lungs are clear. Cor: RRR without murmur. Good radial pulses. GI: Soft/ND/NT. Neuro: A+O x 3. Normal speech, mentation, gait. Cranial nerves II - XII grossly intact. No gross motor or sensory deficit. Ext: No C/C/E. Skin: Track lee, multiple scabs mostly on legs. Some areas of erythema. No areas of fluctuance or abscess. Psych: Depressed, hopeless, expressing SI. Course Vital Signs Vital signs: Vital Signs Temperature 97.9 F 03/31/24 04:40 Pulse 71 03/31/24 04:40 Respiratory Rate 16 03/31/24 04:40 Blood Pressure 176/114 H 03/31/24 04:40 Pulse Oximetry 99 03/31/24 04:40 Temperature 97.9 F 03/31/24 04:40 Temperature Source Temporal Artery Scan 03/31/24 04:40 Pulse 71 03/31/24 04:40 Respiratory Rate 16 03/31/24 04:40 Blood Pressure 176/114 H 03/31/24 04:40 Pulse Oximetry 99 03/31/24 04:40 Oxygen Delivery Method Room Air 03/31/24 04:40 Oxygen Flow Rate 0 03/31/24 04:40 Pain Level 10 03/31/24 04:40 Medical Decision Making Patient presenting to ED with complaint of depression and SI as well as concern for alcohol withdrawal. Has polysubstance abuse with alcohol, opiates, cocaine. He is also reportedly on methadone maintenance. He is not taking any other medications at this point. He has had abdominal pain and vomiting for about a week. He appears anxious. Blood pressure is elevated but he is not tachycardic. His belly is benign. Will need a CPSO given his complaint of depression and SI. Will need IV, fluids, labs, prochlorperazine for nausea and vomiting. Given his polysubstance use and his methadone maintenance will plan treating alcohol withdrawal with benzodiazepines and not phenobarbital. Difficulty obtaining IV access. Ultimately ultrasound-guided IV established. Laboratory studies sent. He is only scoring a 4 on CIWA and has not required any benzodiazepines at this point. Was given prochlorperazine. His laboratory studies are unremarkable. Magnesium is the only significant abnormality with level of 1.5. IV replacement ordered. His urine drug screen is positive for opiates, methadone, cocaine, THC. Alcohol level is 0. Will sign out to oncoming ED physician Dr. Hanley. Will observe for the next hour or 2 to see if he requires any medication for alcohol withdrawal. If not to be medically cleared for mental health evaluation and remain here in the ED. Medical Records Medical records reviewed: Yes I reviewed the patient's medical records. Lab Data Lab results reviewed: Yes I reviewed the patient's lab results. Quality:SDOH Health Related Social Needs: No Data to Display PFSH All Active Problems Suicide ideation (Acute) Cellulitis (Acute) Vomiting (Acute) Cellulitis of left leg (Acute) Suicide ideation (Acute) Polysubstance abuse (Acute) Opioid use disorder (Acute) Nicotine dependence (Acute) Suicidal ideation (Acute) Pancreatitis (Chronic) Depression (Chronic) Opioid dependence on agonist therapy (Acute) Alcohol dependence (Chronic) Polysubstance abuse (Acute) Medical History DVT (deep venous thrombosis) History of osteomyelitis Hepatitis B Hepatitis C Depression Alcohol withdrawal Polysubstance abuse Family History Other Alcohol use disorder Depression Social History Smoking/Tobacco Use Status: Current every day Tobacco Type: cigarettes Smoking risk assessment performed?: Yes Alcohol Intake: current Alcohol Intake frequency: 3 or more drinks per day Alcohol type: hard liquor Drug use: Daily Substance use type: marijuana, crack/cocaine, heroin, opiates, painkillers, IV drugs, methamphetamine and prescription drug Details: fentanyl, cocaine, 5th of liquor daily as per patient . last use a few days ago 03/25/24 MG Housing: homeless Do you feel safe at home: Yes Do you feel safe in your relationship?: Yes
[2024-03-31 05:39] LABS: Bilirubin Small (Negative); Blood Negative (Negative); Clarity Clear (Clear); Glucose Negative (Negative); Ketones Negative (Negative); Leukocyte Esterase Negative (Negative); Nitrite Negative (Negative); Specific Gravity 1.025 (1.005-1.025); pH 7.5 (5-8)
[2024-03-31 05:52] LABS: *AMPHETAMINES SCREEN URINE Negative (Negative); *BARBITURATES SCREEN URINE Negative (Negative); *BENZODIAZEPINES SCREEN URINE Negative (Negative); Cannabinoids THC Positive (Negative); Cocaine Screen,Urine Positive (Negative); METHADONE URINE SCREEN Positive (Negative); OPIATES URINE SCREEN Positive (Negative)
[2024-03-31 05:56] LABS: Tricyclic Antidepressants Negative (Negative)
[2024-03-31 06:54] LABS: Abs Immature Grans 0.02 10^3/uL (0.0-0.06); Absolute Basophil Count 0.06 10^3/uL (0.0-0.2); Absolute Eosinophil Count 0.14 10^3/uL (0.0-0.7); Absolute Lymphocyte Count 3.26 10^3/uL (1.2-3.4); Absolute Monocyte Count 0.64 10^3/uL (0.1-0.8); Absolute Neutrophil Count 4.22 10^3/uL (1.2-6.7); Basophils % 0.7 %; Eosinophils % 1.7 %; HCT 42.8 % (40.0-50.0); HGB 14.2 g/dL (13.5-17.5); Immature Grans % 0.2 %; Lymphocytes % 39.1 %; MCHC 33.2 % (32.0-36.0); MCV 90 fL (80-95); MPV 8.9 fL (8.0-11.0); Monocytes % 7.7 %; Neutrophils % 50.6 %; Platelet Count 359 10^3/uL (130-400); RBC 4.74 10^6/uL (4.36-5.78); RDW 15.8 % (11.8-14.1); RDW-SD 49.6 fL; WBC 8.34 10^3/uL (4.4-10.8)
[2024-03-31 07:11] LABS: ALT 13 U/L (16-63); AST 20 U/L (15-37); Albumin 3.1 g/dL (3.4-5.0); Alkaline Phosphatase 86 U/L (46-116); Anion Gap 6.2 mmol/L (3-11); BUN 5 mg/dL (7-18); Bilirubin, Total 0.6 mg/dL (0.2-1.0); CO2 31.8 mmol/L (21.0-32.0); Chloride 101 mmol/L (98-107); ETHANOL BLOOD < 3.0 mg/dL (<10); Estimated GFR 95.18 (mL/min/1.73m2); Glucose 87 mg/dL (74-106); Lipase 18 U/L (16-77); Magnesium 1.5 mg/dL (1.8-2.4); Potassium 3.6 mmol/L (3.5-5.1); Sodium 139 mmol/L (136-145)
[2024-03-31 07:27] LABS: Salicylate < 2.8 mg/dL (<2.8)
[2024-03-31 07:28] LABS: Acetaminophen < 2 ug/mL (10-30)
--- NOTE | 2024-03-31 07:49 | NUR.NOTE ---
Notified that pts. CIWA score was 13 when I evaluated him (restless, fidgety). states patient presented to him differently (calm, eyes closed). Advised by Dr. Hanley to continue to monitor pt. and keep him updated on presentation.
[2024-03-31] MEDS: Magnesium Oxide 400 MG TAB 800 MG PO (08:01)
[2024-03-31] MEDS: Methadone Liquid 10 MG/ML 100 MG PO (11:21)
--- NOTE | 2024-03-31 15:19 | W.EDPROG ---
Date of service: 03/31/24 Time of Service: 15:19 Medical Decision Making Patient was seen and assessed by Dr. Henry. Please refer to his HPI, physical exam, assessment and plan. At time of signout we are awaiting reassessment medically and by mental health. Laboratory workup is returned, alcohol level negative. When I went in and assessed the patient initially he was seen sleeping comfortably in bed. It was no jitteriness, anxiety or any other abnormality whatsoever. I went and sat down and discussed the scenario, he is medically cleared on review of labs. Patient was given IV and oral magnesium for his mild hypomagnesemia. Patient shows no signs of withdrawal whatsoever on my review at 8:30 AM. No signs of an elevated RASS or CIWA score, patient has been medically cleared we did contact mental health for further assessment. 11:30 AM Mental health did come and assess the patient. He was quite belligerent with nursing staff that he wanted his methadone dosing which there had been a delay in getting to him secondary to his dose confirmation from the clinic. It has been confirmed for 100 mg, and this was administered. He started talking with mental health and described to them that he did feel sad and depressed, but denied any plan to harm himself or end his life. He received his methadone dose during the interview, and per mental health staff as soon as he receives a dose he pulled the blankets over his head and refused to speak with them anymore. He would not have any further conversation, he did not want to discuss anything anymore. Because of this mental health was not able to safety plan him. That being said the patient did not have homicidal or suicidal ideations with plan. Patient does not want to interact with mental health anymore. They will come and reassess him again tomorrow. That being said I do not see an indication for involuntary EE at this stage and as he remains voluntary if he does desire to leave I do feel that this would be reasonable. Otherwise we will keep him here for the time being and have mental health reassessed in the morning. Quality:SDOH Health Related Social Needs: No Data to Display Sign Out Sign Out Data: Sign Out Comment: Observe for the next couple of hours for any signs of withdrawal. If none to be cleared for mental health evaluation. Last updated by Earl Henry MD at 03/31/24 07:42 Discharge Plan Discharge Details Chief Complaint: ETOHWithdr Clinical Impression: Depression, Polysubstance abuse Primary Care Provider: Unknown,Unknown ED Provider: Boogie Hanley Home Meds and New Rx's Prescriptions: No Action methadone 10 mg/mL concentrate 100 mg PO DAILY Patient Comments: @ [facility], verified last dose 03/30/24 for 100mg
--- NOTE | 2024-03-31 16:31 | PDOC.MHCN_ITS ---
Date of service: 03/31/24 Time of Service: 10:30 PHQ-9 Over the last 2 weeks, how often have you been bothered by any of the following problems? 1. Little interest or pleasure in doing things: not at all 2. Feeling down, depressed, or hopeless: several days 3. Trouble falling or staying asleep, or sleeping too much: not at all 4. Feeling tired or having little energy: not at all 5. Poor appetite or overeating: not at all 6. Feeling bad about yourself - or that you are a failure or have let yourself and your family down: several days 7. Trouble concentrating on things, such as reading the newspaper or watching television: not at all 8. Moving or speaking so slowly that other people could have noticed? - Or the opposite - being so fidgety or restless that you have been moving around a lot more than usual: not at all 9. Thoughts that you would be better off or of hurting yourself in some way: not at all Total score: 2 Source: Developed by Drs. Earl Reyes, Colette Lucero, Galen Cadet and colleagues, with an educational von from [employer]. Suicide Severity Rate CSSRS Have you wished you were or wished you could go to sleep and not wake up?: No Have you actually had any thoughts of killing yourself?: No CSSRS2 Have you been thinking about how you might do this?: No Have you had these thoughts and had some intention of acting on them?: No Have you started to work out or worked out the details of how to kill yourself? Do you intend to carry out this plan?: No CSSRS3 Have you ever done anything, started to do anything or prepared to do anything to end your life?: No CSSRS4 Was this within the past three months?: No Screening Score Total Score: 0 Screening: Negative Mental Health Emergency Note Release [facility] release signed:: Yes Reason for Visit intoxication/depression/withdrawals In the last 2 weeks has the pt presented for ES prior to today?: No Client Information Client is: Adult Outpatient and Substance use Well Housed: No,status: Homeless Non Suicidal Self Injury Current: No History: No Safety Risk/Harm to Self or Others Current Ideation to Harm Self or Others: No Risk: Does risk to harm exist?: No Risk: Low Risk Duty to warn indicated: No Asssessment/Mental Status Appearance: Other Attitude: Guarded and Other Behavior: Agitated Speech: Soft and Slow Affect: Cogruent with mood Mood: Stressed and Irritable Thought process: Poverty of content Hallucinations: No Delusions: No Attention: Inattention Perception: Not impaired Orientation: Fully orientated Memory: Intact Insight: Fair Judgement: Fair Neurovegetative Symptoms Sleep: Decrease Appetitie: Disordered Interests: Decrease Energy: Decrease Libido: Not applicable Substance Use: ETOH dependence Drug Issues: Dependence Do you use nicotine?: Yes Have you used substances in the last 7 days?: yes, unsure Additional Issues: Assaultive/Threatening Behavior: No Medical Concerns: No Client engaged in active self harm w/weapon: No Threatening to run away: No Child reported abuse/neglect: No Voluntarily presenting for services: Yes Domestic violence is a concern: No Extreme Psychosis or extreme behavior is present: No Impression Client presented as asleep and unwilling to answer questions nor to cooperate with assessment. He wanted help with his addicitons but does not want any services other than to sleep and feel better, he is homeless. Resources Reosurc reviewed and given:: [id number] Plan/Disposition Recommended Disposition: [facility] Services [facility] Services: Therapy and Therapy. Plan: Client will be offered a Safety Plan when he can cooperate with clincial staff and if he does not he will mostly likely be discharged from the hospital. Reports/communication Outcome discussed with: ED/Personnel
--- NOTE | 2024-03-31 18:22 | W.EDPROG ---
Date of service: 03/31/24 Time of Service: 18:22 Medical Decision Making Patient resting comfortably no acute distress calm cooperative interactive. Patient does not want to speak with [facility] [employer] and has requested his belongings so he can leave. No SI no HI no signs of withdrawal. Quality:SDOH Health Related Social Needs: No Data to Display Sign Out Sign Out Data: Sign Out Comment: Observe for the next couple of hours for any signs of withdrawal. If none to be cleared for mental health evaluation. Last updated by Earl Henry MD at 03/31/24 07:42 Sign Out Comment: Patient is medically clear and shows no signs of active withdrawal. Patient started the process of evaluation with mental health but refused to speak anymore once he got his methadone dosing. He is voluntary and is free to leave as he has no suicidality with plan. Mental health will reassess tomorrow. Last updated by Boogie Hanley DO at 03/31/24 15:28 Discharge Plan Disposition Patient Disposition: Home Condition: Improving Discharge Details Chief Complaint: ETOHWithdr Clinical Impression: Depression, Polysubstance abuse Primary Care Provider: Unknown,Unknown ED Provider: Christian Vanessa Home Meds and New Rx's Prescriptions: No Action methadone 10 mg/mL concentrate 100 mg PO DAILY Patient Comments: @ [facility], yissel last dose 03/30/24 for 100mg Discharge Instructions Additional Instructions: Please follow-up with [facility] [employer] services as well as primary care physician.
== END 2024-03-31 18:28 | disposition home or self-care (01) ==
PROVIDERS: Emergency Medicine; Emergency Provider Emergency Medicine
DX: R45.851 Suicidal ideations (principal); F19.10 Other psychoactive substance abuse, uncomplicated; F32.A Depression, unspecified; F10.20 Alcohol dependence, uncomplicated; F11.90 Opioid use, unspecified, uncomplicated; R10.9 Unspecified abdominal pain; R11.2 Nausea with vomiting, unspecified; Z59.00 Homelessness unspecified
CPT/HCPCS: 00123; 80053; 80307; 83690; 96127; 99285; 80320; 80329; 81003; 83735; 85025; 99283

== ENCOUNTER 2024-04-15 23:29 | Emergency (ER) | payer MEDICAID, SELFPAY ==
--- NOTE | 2024-04-15 23:30 | RT.EKG_ITS ---
APPROVED REPORT Exam: Resting ECG Reason for Exam: medical clearance Patient Location: E HR:54 bpm ECG Measurements Heart Rate 54 AXIS ME 140 P 34 QRSd 95 QRS 15 QT 515 T 22 QTc 490 Conclusion Sinus bradycardia...rate< [address]Tc no [address] segment or T wave abnormalities to suggest occlusive SC
[2024-04-15 23:32] VITALS: BP 166/101; PULSE 71; RESP 16; TEMP 36.9; O2SAT 99
[2024-04-16 00:43] LABS: Abs Immature Grans 0.01 10^3/uL (0.0-0.06); Absolute Basophil Count 0.05 10^3/uL (0.0-0.2); Absolute Eosinophil Count 0.35 10^3/uL (0.0-0.7); Absolute Lymphocyte Count 3.69 10^3/uL (1.2-3.4); Absolute Monocyte Count 0.75 10^3/uL (0.1-0.8); Absolute Neutrophil Count 2.63 10^3/uL (1.2-6.7); Basophils % 0.7 %; Eosinophils % 4.7 %; HCT 44.3 % (40.0-50.0); HGB 14.8 g/dL (13.5-17.5); Immature Grans % 0.1 %; Lymphocytes % 49.3 %; MCH 29.8 pg (27.0-33.0); MCHC 33.4 % (32.0-36.0); MCV 89 fL (80-95); MPV 8.7 fL (8.0-11.0); Neutrophils % 35.2 %; Platelet Count 260 10^3/uL (130-400); RBC 4.96 10^6/uL (4.36-5.78); RDW 15.9 % (11.8-14.1); RDW-SD 51.4 fL; WBC 7.48 10^3/uL (4.4-10.8)
[2024-04-16 01:01] LABS: ALT 20 U/L (16-63); AST 29 U/L (15-37); Albumin 3.4 g/dL (3.4-5.0); Alkaline Phosphatase 119 U/L (46-116); Anion Gap 8.1 mmol/L (3-11); BUN 5 mg/dL (7-18); Bilirubin, Total 0.76 mg/dL (0.2-1.0); CO2 27.9 mmol/L (21.0-32.0); CREATININE 0.9 mg/dL (0.70-1.30); Chloride 101 mmol/L (98-107); Estimated GFR 108.01 (mL/min/1.73m2); Glucose 93 mg/dL (74-106); Magnesium 1.7 mg/dL (1.8-2.4); Potassium 3.6 mmol/L (3.5-5.1); Sodium 137 mmol/L (136-145); Total Protein 8.3 g/dL (6.4-8.2)
[2024-04-16 01:25] LABS: ETHANOL BLOOD < 3.0 mg/dL (<10)
[2024-04-16 01:27] LABS: Salicylate < 2.8 mg/dL (<2.8)
[2024-04-16 01:31] LABS: Acetaminophen < 2 ug/mL (10-30)
[2024-04-16 01:43] LABS: *AMPHETAMINES SCREEN URINE Negative (Negative); *BARBITURATES SCREEN URINE Negative (Negative); *BENZODIAZEPINES SCREEN URINE Negative (Negative); Cannabinoids THC Positive (Negative); Cocaine Screen,Urine Positive (Negative); METHADONE URINE SCREEN Positive (Negative); OPIATES URINE SCREEN Negative (Negative)
[2024-04-16 01:45] LABS: Tricyclic Antidepressants Negative (Negative)
--- NOTE | 2024-04-16 02:03 | ED.GENADUL_ITS ---
Discharge Plan Discharge Details Chief Complaint: PsychEval Primary Care Provider: Unknown,Unknown ED Provider: Silvia Quezada Home Meds and New Rx's Prescriptions: No Action methadone 10 mg/mL concentrate 100 mg PO DAILY Patient Comments: @ [facility], verified last dose 03/30/24 for 100mg HPI General Mode of arrival: ambulatory . Date/Time Provider Initiated Documentation: 04/15/24 23:39 . Limitations to Documentation: no limitations . Information obtained by: patient . HPI Narrative: 43yo M with hx bipolar, polysubstance use, presenting with SI and withdrawal. States last use of fentanyl ~24 hours ago, last ETOH about 4 hours before arrival. Drinks 18-24 'tall boys' daily. Reports SI with plan to overdose. Denies prior suicide attempts, dose report that he has been hospitlized at [place] before for psychiatric reasons and he is interested in pursueing psychiatric treatment at this time. Feels crummy. + nausea + tremors. No vomiting. Pain all over as well as chronic left shoulder pain which unchanged per patient. Denies abdominal pain. He is otherwise in his usual state of health with no fevers, chills, rash, chest pain, shortness of breath, numbness, tingling, weakness, or other concerns. Related Data Home Medications Medication Instructions Recorded Confirmed methadone 10 mg/mL oral concentrate 100 mg PO DAILY 10/10/23 03/31/24 Allergies Allergy/AdvReac Type Severity Reaction Status Date / Time No Known Allergies Allergy Verified 03/31/24 04:51 General Stated Complaint: PsychEval RAVEN: 2 Review of Systems Narrative: see HPI Exam Narrative Exam Narrative: General: Alert, well nourished Head: Normocephalic, atraumatic Neck: Trachea midline, ?Neck supple. ENT: ?MMM.? Cardiac: ?RRR, no murmurs appreciated Resp: No respiratory distress. CTAB. Abd: ?Soft, non-distended, nontender Extremities: ?No deformities.? No peripheral edema. Neurologic: GCS 15. ? Moves all extremities freely against gravity. Hand tremors. Psych: Mild psychomotor agitation, rocking. Cooperative.? Adequate grooming.? Mood fucking terrible, affect congruent.? Speech soft and slightly fast with normal rrythym and tone. Linear and goal directed.? +SI, denies HI/AH/VH. ? Does not appear to be responding to internal stimuli. Course Vital Signs Vital signs: Vital Signs Temperature 36.9 C 04/15/24 23:32 Pulse 71 04/15/24 23:32 Respiratory Rate 16 04/15/24 23:32 Blood Pressure 166/101 H 04/15/24 23:32 Pulse Oximetry 99 04/15/24 23:32 Temperature 36.9 C 04/15/24 23:32 Temperature Source Skin 04/15/24 23:32 Pulse 71 04/15/24 23:32 Respiratory Rate 16 04/15/24 23:32 Respiratory Effort Normal, Non-Labored 04/15/24 23:36 Blood Pressure 166/101 H 04/15/24 23:32 Blood Pressure Position Sitting 04/15/24 23:32 Pulse Oximetry 99 04/15/24 23:32 Oxygen Delivery Method Room Air 04/15/24 23:32 Oxygen Flow Rate 0 04/15/24 23:32 Pain Level 10 04/15/24 23:32 Lab/Test Results Lab/Test Results: Laboratory Tests Range/Units 04/16/24 04/16/24 00:31 01:15 WBC (4.4-10.8) 10^3/uL 7.48 RBC (4.36-5.78) 10^6/uL 4.96 Hgb (13.5-17.5) g/dL 14.8 Hct (40.0-50.0) % 44.3 MCV (80-95) fL 89 MCH (27.0-33.0) pg 29.8 MCHC (32.0-36.0) % 33.4 RDW (11.8-14.1) % 15.9 H Plt Count (130-400) 10^3/uL 260 MPV (8.0-11.0) fL 8.7 Immature Gran % % 0.1 Neutrophils % % 35.2 Lymphocytes % % 49.3 Monocytes % % 10.0 Eosinophils % % 4.7 Basophils % % 0.7 Nucleated RBC % (0.0-0.3) % 0.0 Absolute Neutrophils (1.2-6.7) 10^3/uL 2.63 Absolute Lymphocytes (1.2-3.4) 10^3/uL 3.69 H Absolute Monocytes (0.1-0.8) 10^3/uL 0.75 Absolute Eosinophils (0.0-0.7) 10^3/uL 0.35 Absolute Basophils (0.0-0.2) 10^3/uL 0.05 Sodium (136-145) mmol/L 137 Potassium (3.5-5.1) mmol/L 3.6 Chloride (98-107) mmol/L 101 Carbon Dioxide (21.0-32.0) mmol/L 27.9 Anion Gap (3-11) mmol/L 8.1 BUN (7-18) mg/dL 5 L Creatinine (0.70-1.30) mg/dL 0.9 Est GFR (CKD-EPI 2020) (mL/min/1.73m2) 108.01 Glucose (74-106) mg/dL 93 Calcium (8.5-10.1) mg/dL 9.0 Magnesium (1.8-2.4) mg/dL 1.7 L Total Bilirubin (0.2-1.0) mg/dL 0.76 AST (15-37) U/L 29 ALT (16-63) U/L 20 Alkaline Phosphatase (46-116) U/L 119 H Total Protein (6.4-8.2) g/dL 8.3 H Albumin (3.4-5.0) g/dL 3.4 Salicylates (<2.8) mg/dL < 2.8 Urine Opiates Screen (Negative) Negative Urine Methadone Screen (Negative) Positive A Acetaminophen (10-30) ug/mL < 2 Ur Barbiturates Screen (Negative) Negative Ur Tricyclics Screen (Negative) Negative Ur Amphetamines Screen (Negative) Negative U Benzodiazepines Scrn (Negative) Negative Urine Cocaine Screen (Negative) Positive A Ur THC Screen (Negative) Positive A Ethyl Alcohol (<10) mg/dL < 3.0 Medical Decision Making 43yo M with hx bipolar, polysubstance use, presenting with SI and withdrawal. States last use of fentanyl ~24 hours ago, last ETOH about 4 hours before arrival. Reports history prior ETOH withdrawal seizures. Today SI with plan to overdose. Hypertensive on arrival, vital signs otherwise reassuring. Cooperative on exam, + tremors, does not appear to be responding to internal stimuli. Screening labs as below, CBC & CMP with no actionable abnormalitites, Mg slightly low at 1.7 (oral replacement ordered). EKG with borderline prolonged QTc (pt is on methadone). Given clonidine, tylenol, ibuprofen for symptoms. Initial CIWA 12; will give 50mg of librium. [facility] spoke with patient, advised voluntary inpatient placement when medically cleared. 2 hours later sleeping comfortably, no tremors noted. Signed out to oncoming physician, plan to followup CIWA scores, confirmation of methadone dose, [facility] re-eval and bed availability. Lab Data Lab results reviewed: Yes I reviewed the patient's lab results. Labs: Laboratory Tests Range/Units 04/16/24 04/16/24 00:31 01:15 WBC (4.4-10.8) 10^3/uL 7.48 RBC (4.36-5.78) 10^6/uL 4.96 Hgb (13.5-17.5) g/dL 14.8 Hct (40.0-50.0) % 44.3 MCV (80-95) fL 89 MCH (27.0-33.0) pg 29.8 MCHC (32.0-36.0) % 33.4 RDW (11.8-14.1) % 15.9 H Plt Count (130-400) 10^3/uL 260 MPV (8.0-11.0) fL 8.7 Immature Gran % % 0.1 Neutrophils % % 35.2 Lymphocytes % % 49.3 Monocytes % % 10.0 Eosinophils % % 4.7 Basophils % % 0.7 Nucleated RBC % (0.0-0.3) % 0.0 Absolute Neutrophils (1.2-6.7) 10^3/uL 2.63 Absolute Lymphocytes (1.2-3.4) 10^3/uL 3.69 H Absolute Monocytes (0.1-0.8) 10^3/uL 0.75 Absolute Eosinophils (0.0-0.7) 10^3/uL 0.35 Absolute Basophils (0.0-0.2) 10^3/uL 0.05 Sodium (136-145) mmol/L 137 Potassium (3.5-5.1) mmol/L 3.6 Chloride (98-107) mmol/L 101 Carbon Dioxide (21.0-32.0) mmol/L 27.9 Anion Gap (3-11) mmol/L 8.1 BUN (7-18) mg/dL 5 L Creatinine (0.70-1.30) mg/dL 0.9 Est GFR (CKD-EPI 2020) (mL/min/1.73m2) 108.01 Glucose (74-106) mg/dL 93 Calcium (8.5-10.1) mg/dL 9.0 Magnesium (1.8-2.4) mg/dL 1.7 L Total Bilirubin (0.2-1.0) mg/dL 0.76 AST (15-37) U/L 29 ALT (16-63) U/L 20 Alkaline Phosphatase (46-116) U/L 119 H Total Protein (6.4-8.2) g/dL 8.3 H Albumin (3.4-5.0) g/dL 3.4 Salicylates (<2.8) mg/dL < 2.8 Urine Opiates Screen (Negative) Negative Urine Methadone Screen (Negative) Positive A Acetaminophen (10-30) ug/mL < 2 Ur Barbiturates Screen (Negative) Negative Ur Tricyclics Screen (Negative) Negative Ur Amphetamines Screen (Negative) Negative U Benzodiazepines Scrn (Negative) Negative Urine Cocaine Screen (Negative) Positive A Ur THC Screen (Negative) Positive A Ethyl Alcohol (<10) mg/dL < 3.0 Quality:SDOH Health Related Social Needs: No Data to Display PFSH All Active Problems (Updated 03/31/24 @ 15:26 by Boogie Hanley DO) Suicide ideation (Acute) Cellulitis (Acute) Vomiting (Acute) Cellulitis of left leg (Acute) Suicide ideation (Acute) Polysubstance abuse (Acute) Opioid use disorder (Acute) Nicotine dependence (Acute) Suicidal ideation (Acute) Pancreatitis (Chronic) Depression (Chronic) Opioid dependence on agonist therapy (Acute) Alcohol dependence (Chronic) Polysubstance abuse (Acute) Medical History DVT (deep venous thrombosis) History of osteomyelitis Hepatitis B Hepatitis C Depression Alcohol withdrawal Polysubstance abuse Family History Other Alcohol use disorder Depression Social History Smoking/Tobacco Use Status: Current every day Tobacco Type: cigarettes Smoking risk assessment performed?: Yes Alcohol Intake: current Alcohol Intake frequency: 3 or more drinks per day Alcohol type: hard liquor Drug use: Daily Substance use type: marijuana, crack/cocaine, heroin, opiates, painkillers, IV drugs, methamphetamine and prescription drug Details: last use of fentanyl this AM 04/15/24 Housing: homeless Do you feel safe at home: Yes Do you feel safe in your relationship?: Yes PAWSS Have you Been Recently Intoxicated or Drunk Within the Last 30 days?: Yes Have you Ever Experienced Previous Episodes of Alcohol Withdrawal?: Yes Have you ever Experienced Withdrawal Seizures?: No Have you ever Experienced Delirium Tremens(DT)s?: Yes Have you ever undergone Alcohol Rehabilitation Treatment (i.e, inpt ot outpatient treatment programs)?: Yes Have you ever Experienced Blackouts?: Yes Have you ever Combined Alcohol with other Downers within the last 90 days?: Yes Have you ever Combined Alcohol with any other Substance of Abuse during the last 90 days?: Yes Positive Blood Alcohol level on Presentation? [PCS.BAL]: Yes Evidence of Increased Autonomic Activity (i.e. HR>120, tremor, sweating, agitation, nausea)?: Yes Result: 9
[2024-04-16] MEDS: Ibuprofen 800 MG TAB PO (02:11)
[2024-04-16] MEDS: Magnesium Gluconate 500 MG TAB PO (02:11)
[2024-04-16] MEDS: Acetaminophen 500 MG TAB 1000 MG PO (02:11)
[2024-04-16] MEDS: cloNIDine 0.1 MG TAB PO (02:11)
[2024-04-16] MEDS: chlordiazePOXIDE 25 MG CAP 50 MG PO (02:57)
--- NOTE | 2024-04-16 09:33 | NUR.NOTE ---
Nursing Note: patient resting quietly, breathing even and unlabored at 16 breath/min.
--- NOTE | 2024-04-16 11:40 | NUR.NOTE ---
Nursing Note: per MD ABEL this RN was to let patient sleeping this AM with minimal interruptions
[2024-04-16 11:49] VITALS: BP 174/84; PULSE 50; RESP 16; O2SAT 97
--- NOTE | 2024-04-16 12:34 | ED.PROG_ITS ---
Date of service: 04/16/24 Time of Service: 12:15 Medical Decision Making Patient was signed out to me by my colleague Dr. Louis. Please refer to previous documentations for the patient. Patient was here overnight for evaluation of potential withdrawal versus depression. He is homeless. He has been reassessed by mental health this morning and he is not willing to engage or connect with them. He will answer occasional questions, but usually just turned over to the other side of the bed and no longer facilitate conversation. Patient has been sleeping and resting comfortably. He did get his home medications. On personal reassessment at 12:10 PM he is sleeping and resting comfortably with no signs of detox whatsoever. When he is awoken he has a very minimal tremor which is well-controlled. He is able to articulate well. Symptoms appear notably well-controlled with no signs of significant DTs or symptomatology for that matter at this time. Patient appears to be notably clear and stable at this time. He will be transition to zone B for the interim. Mental health states that they will reassess him tomorrow if he is willing to engage then. Quality:[facility] Health Related Social Needs: No Data to Display Sign Out Sign Out Data: Sign Out Comment: 43m, SI with plan to OD, ETOH and opiate withdrawal. Initial CIWA 12, given 50 of librium, subsequently sleeping comfortably. Pending repeat CIWA, methadone dose confirmation, [facility] re-assessment. Last updated by Silvia Quezada MD at 04/16/24 06:52 Discharge Plan Discharge Details Chief Complaint: PsychEval Primary Care Provider: Unknown,Unknown ED Provider: Boogie Hanley Home Meds and New Rx's Prescriptions: No Action methadone 10 mg/mL concentrate 100 mg PO DAILY Patient Comments: @ [facility], verified last dose 03/30/24 for 100mg
--- NOTE | 2024-04-16 12:40 | NUR.NOTE ---
Nursing Note: Received pt in Zone B. Rescored CIWA consistent with previous caregiver's assessment of 7. Per policy, A score of 4 or greater suggests a high risk for complicated alcohol withdrawal. Discussed policy and CIWA with Dr. Hanley who states pt is appropriate for Zone B.
--- NOTE | 2024-04-16 16:37 | ED.PROG_ITS ---
Date of service: 04/16/24 Time of Service: 16:37 Medical Decision Making While patient has been stable throughout the entire day, at 4:30 PM he became notably agitated. He asked for his methadone. He had not received it during the day because the dose could not be confirmed with the clinic. He had been given clonidine and Librium. This evening he became extremely agitated and demanded to be discharged. I had a conversation with the patient, and discussed with him his current concerns. Currently he is extremely frustrated that he did not get his methadone, and wants to leave right away. I did discuss with him that the protocol is for him to get his methadone however because the dose is not confirmed at the [facility], alternatives had been given in the form of clonidine and Librium. He was very upset with this. I did discuss with him that I would be willing to make an exception in this scenario to give him his previously prescribed doses which we had not been able to confirm but had provided here in the past when he has been here. Patient stated that he does not want this and would rather leave at this time. He denies any homicidal or suicidal ideations. He states that he just wants to leave and go get some methadone. I again made it clear that I would be willing to give him a dose here as an exception until we could confirm his normal dose, but he was notably unwilling to do this. I had a long discussion with him regarding my recommendations that this would not be the best path going forward. I offered to reconnect him with our mental health advocates and he declined. He continues to deny any intent for self-harm. Patient is of a appropriate age to make decisions. The patient is of sound mind, appears clinically sober, and has capacity to make decisions by my clinical exam. We have provided options for treatment and discussed the risks and benefits of these options and refusing these options, including and disability specific to the patient's pathology. Patient is able to discuss the risks and benefits and alternatives of treatment and refusing treatment. We have tried to involve the patient's family or support group that was present here or by contacting them on the phone. The patient chooses to leave before evaluation and treatment is complete AGAINST MEDICAL ADVICE. Quality:[facility] Health Related Social Needs: No Data to Display Sign Out Sign Out Data: Sign Out Comment: 43m, SI with plan to OD, ETOH and opiate withdrawal. Initial CIWA 12, given 50 of librium, subsequently sleeping comfortably. Pending repeat CIWA, methadone dose confirmation, [facility] re-assessment. Last updated by Silvia Quezada MD at 04/16/24 06:52 Discharge Plan Disposition Patient Disposition: Home Condition: Stable Discharge Details Chief Complaint: PsychEval Clinical Impression: Polysubstance abuse Primary Care Provider: Unknown,Unknown ED Provider: Boogie Hanley Home Meds and New Rx's Prescriptions: No Action methadone 10 mg/mL concentrate 100 mg PO DAILY Patient Comments: @ [facility], verified last dose 03/30/24 for 100mg
--- NOTE | 2024-04-16 16:47 | NUR.NOTE ---
Nursing Note: Pt becoming anxious and agitated when he hadn't received his Methadone dose, stating, I haven't had my Methadone in three days! I'm leaving! At bedside, physician attempting to calm patient who states he's ..had enough. I'm just going to get a beer and do what I do. Pt informed by this proposal writer of risks of refusing care up to and including sudden . Pt states he is aware of risks. Pt dressed and left w/o incident, advised on the way out that we are open 05/05 and here if he needs us. Pt states, Okay, thanks.
== END 2024-04-16 16:46 | disposition home or self-care (01) ==
PROVIDERS: Student in an Organized Health Care Education/Training Program; Emergency Provider Student in an Organized Health Care Education/Training Program
DX: F19.930 Other psychoactive substance use, unspecified with withdrawal, uncomplicated (principal); R45.851 Suicidal ideations; F10.90 Alcohol use, unspecified, uncomplicated
CPT/HCPCS: 00123; 36415; 80053; 80307; 93005; 99285; 80320; 80329; 83735; 85025; 93010

== ENCOUNTER 2024-04-17 09:37 | Emergency (ER) | payer MEDICAID, SELFPAY ==
[2024-04-17 09:41] VITALS: BP 133/89; PULSE 79; RESP 16; TEMP 36.9; O2SAT 97
--- NOTE | 2024-04-17 09:49 | ED.GENADUL_ITS ---
Discharge Plan Discharge Details Chief Complaint: PsychEval Clinical Impression: Depression, Polysubstance abuse Primary Care Provider: Unknown,Unknown ED Provider: Boogie Hanley Home Meds and New Rx's Prescriptions: No Action methadone 10 mg/mL concentrate 100 mg PO DAILY Patient Comments: @ [facility], verified last dose 03/30/24 for 100mg HPI General Date/Time Provider Initiated Documentation: 04/17/24 09:41 . HPI Narrative: 43-year-old male with a past medical history of polysubstance abuse, depression, fentanyl abuse, alcohol dependence, regular methadone use, presents today for depression. Patient was just here yesterday, he had been here for almost the entire day and would not have complete interactions with the mental health assessment team. In the evening at around 4 to 5 PM he became very agitated that he had not gotten his methadone dose yet. He had been given clonidine and other medications by the previous provider to help with symptoms, however his methadone dose had not been able to be verified. I saw and assessed him at that time, and stated that we would be able to give him a dose of methadone now, however this is unacceptable for him and he left against our advice stating that he was going to go use and did not want help, and did not want to be given methadone by us. He then left on his own fruition, and had no homicidal or suicidal ideations at that time. Patient returns today stating that he went home, injected 3 bags of fentanyl at around 10 PM last night, and drank an 18 pack of beer. He states that he is sad, and is not sure if life is worth living anymore. He denies any focal plan for self-harm though, he denies any homicidal ideations. He denies any auditory visual hallucinations. He does admit to feeling slightly dizzy when he stands up after taking out fentanyl and alcohol last night. No other complaints at this time. No chest pain, no shortness of breath, no other complaints. Related Data Home Medications Medication Instructions Recorded Confirmed methadone 10 mg/mL oral concentrate 100 mg PO DAILY 10/10/23 04/17/24 Allergies Allergy/AdvReac Type Severity Reaction Status Date / Time No Known Allergies Allergy Verified 04/17/24 09:43 General Stated Complaint: PsychEval RAVEN: 2 Review of Systems All systems reviewed & are unremarkable except as noted in HPI and below Exam Narrative Exam Narrative: 1.Const: Well-nourished, Well-developed, appearing stated age 2.Eyes: PERRL, no conjunctival injection, and symmetrical lids. 3.ENT: Atraumatic external nose and ears. Dry MM. Neck: Symmetric, trachea midline, No thyromegaly. 4.CVS: +S1/S2, No murmurs or gallops. Peripheral pulses 2+ and equal in all extremities. Brisk capillary refill in all extremities. 5.RESP: Unlabored respiratory effort. Clear to auscultation bilaterally. No wheezes rales or rhonchi 6.GI: Soft, Nontender/Nondistended, No hepatosplenomegaly. No guarding or rebound. 7.MSK: Normocephalic/Atraumatic, Extremities w/o deformity or ttp No cyanosis or clubbing, Normal movement of all extremities 8.Skin: Warm, Dry. Multiple small skin picking lesions on his arms. 9.Neuro: information systems security specialist II-XII grossly intact. Sensation grossly intact, no focal neurologic deficits. 10.Psych: (AAO) x3. Quiet, tearful, and diminished mood and affect. Course Vital Signs Vital signs: Vital Signs Temperature 36.9 C 04/17/24 09:41 Pulse 79 04/17/24 09:41 Respiratory Rate 16 04/17/24 09:41 Blood Pressure 133/89 04/17/24 09:41 Pulse Oximetry 97 04/17/24 09:41 Temperature 36.9 C 04/17/24 09:41 Temperature Source Temporal Artery Scan 04/17/24 09:41 Pulse 79 04/17/24 09:41 Respiratory Rate 16 04/17/24 09:41 Respiratory Effort Normal, Non-Labored 04/17/24 09:43 Blood Pressure 133/89 04/17/24 09:41 Blood Pressure Position Sitting 04/17/24 09:41 Pulse Oximetry 97 04/17/24 09:41 Medical Decision Making 43-year-old male with a past medical history of polysubstance abuse, depression, fentanyl abuse, alcohol dependence, regular methadone use, presents today for depression. Patient was just here yesterday, he had been here for almost the entire day and would not have complete interactions with the mental health assessment team. In the evening at around 4 to 5 PM he became very agitated that he had not gotten his methadone dose yet. He had been given clonidine and other medications by the previous provider to help with symptoms, however his methadone dose had not been able to be verified. I saw and assessed him at that time, and stated that we would be able to give him a dose of methadone now, however this is unacceptable for him and he left against our advice stating that he was going to go use and did not want help, and did not want to be given methadone by us. He then left on his own fruition, and had no homicidal or suicidal ideations at that time. Patient returns today stating that he went home, injected 3 bags of fentanyl at around 10 PM last night, and drank an 18 pack of beer. He states that he is sad, and is not sure if life is worth living anymore. He denies any focal plan for self-harm though, he denies any homicidal ideations. He denies any auditory visual hallucinations. He does admit to feeling slightly dizzy when he stands up after taking out fentanyl and alcohol last night. No other complaints at this time. No chest pain, no shortness of breath, no other complaints. Exam demonstrates male is tearful, and appears to be under the influence of an intoxicant or drug. No focal deficits. He does verbalize suicidality but no plan. He does not appear to be a threat to himself at this stage. We will medically clear, rehydrate, have mental health evaluate him after he has been medically cleared. At this time I do not see an indication for one-to-one observer as the currently shows no risk to himself while here in the safe room in the emergency department. 1:41 PM Patient remained stable. Pending mental health assessment. Patient is medically cleared. Laboratory workup stable. Patient has been rehydrated with a liter of fluid. Patient is continuing to request admission to a dual diagnosis facility for rehab and treatment. Quality:[facility] Health Related Social Needs: No Data to Display PFSH All Active Problems (Updated 04/17/24 @ 13:42 by Boogie Hanley DO) Suicide ideation (Acute) Cellulitis (Acute) Vomiting (Acute) Cellulitis of left leg (Acute) Suicide ideation (Acute) Polysubstance abuse (Acute) Opioid use disorder (Acute) Nicotine dependence (Acute) Suicidal ideation (Acute) Pancreatitis (Chronic) Depression (Chronic) Opioid dependence on agonist therapy (Acute) Alcohol dependence (Chronic) Polysubstance abuse (Acute) Medical History DVT (deep venous thrombosis) History of osteomyelitis Hepatitis B Hepatitis C Depression Alcohol withdrawal Polysubstance abuse Family History Other Alcohol use disorder Depression Social History Smoking/Tobacco Use Status: Current every day Tobacco Type: cigarettes Smoking risk assessment performed?: Yes Alcohol Intake: current Alcohol Intake frequency: 3 or more drinks per day Alcohol type: hard liquor Drug use: Daily Substance use type: marijuana, crack/cocaine, heroin, opiates, painkillers, IV drugs, methamphetamine and prescription drug Details: last use of fentanyl this AM 04/15/24 Housing: homeless Do you feel safe at home: Yes Do you feel safe in your relationship?: Yes
[2024-04-17] MEDS: Lactated Ringers 1,000 ML 1000 ML IV (10:30)
[2024-04-17 10:38] LABS: Abs Immature Grans 0.01 10^3/uL (0.0-0.06); Absolute Basophil Count 0.05 10^3/uL (0.0-0.2); Absolute Eosinophil Count 0.44 10^3/uL (0.0-0.7); Absolute Lymphocyte Count 2.41 10^3/uL (1.2-3.4); Absolute Monocyte Count 0.51 10^3/uL (0.1-0.8); Absolute Neutrophil Count 1.67 10^3/uL (1.2-6.7); Eosinophils % 8.6 %; HCT 45.2 % (40.0-50.0); Immature Grans % 0.2 %; Lymphocytes % 47.3 %; MCH 30.1 pg (27.0-33.0); MCHC 33.2 % (32.0-36.0); MCV 91 fL (80-95); MPV 8.5 fL (8.0-11.0); Neutrophils % 32.9 %; Platelet Count 251 10^3/uL (130-400); RBC 4.99 10^6/uL (4.36-5.78); RDW 16.1 % (11.8-14.1); RDW-SD 52.2 fL; WBC 5.09 10^3/uL (4.4-10.8)
[2024-04-17 11:01] LABS: ALT 19 U/L (16-63); AST 27 U/L (15-37); Albumin 3.5 g/dL (3.4-5.0); Alkaline Phosphatase 112 U/L (46-116); Anion Gap 7.6 mmol/L (3-11); BUN 3 mg/dL (7-18); CO2 30.4 mmol/L (21.0-32.0); CREATININE 0.9 mg/dL (0.70-1.30); Calcium 9.1 mg/dL (8.5-10.1); Chloride 100 mmol/L (98-107); Estimated GFR 108.01 (mL/min/1.73m2); Glucose 87 mg/dL (74-106); Potassium 3.8 mmol/L (3.5-5.1); Sodium 138 mmol/L (136-145); TSH (W/Ref FT4) 2.48 uIU/mL (0.36-3.74); Total Protein 8.7 g/dL (6.4-8.2)
[2024-04-17 11:02] LABS: ETHANOL BLOOD < 3.0 mg/dL (<10)
[2024-04-17 11:10] LABS: Salicylate < 2.8 mg/dL (<2.8)
[2024-04-17 11:27] LABS: Acetaminophen < 2 ug/mL (10-30)
[2024-04-17 11:39] LABS: *AMPHETAMINES SCREEN URINE Negative (Negative); *BARBITURATES SCREEN URINE Negative (Negative); *BENZODIAZEPINES SCREEN URINE Positive (Negative); Cannabinoids THC Positive (Negative); Cocaine Screen,Urine Positive (Negative); METHADONE URINE SCREEN Positive (Negative); OPIATES URINE SCREEN Negative (Negative)
[2024-04-17 11:45] LABS: Tricyclic Antidepressants Negative (Negative)
--- NOTE | 2024-04-17 16:34 | W.EDPROG ---
Date of service: 04/17/24 Time of Service: 19:17 Medical Decision Making Care assumed from off going provider. Patient is a 43-year-old gentleman with with history of polysubstance abuse. Currently pending inpatient voluntary psychiatric placement. Reports suicidal ideation. Has been in the emergency department yesterday when he left AMA. When he left, he did a lot of drugs and then returned with suicidal ideation. He is medically cleared and pending placement. Medical Records Medical records reviewed: Yes I reviewed the patient's medical records. Quality:[facility] Health Related Social Needs: No Data to Display Sign Out Sign Out Data: Sign Out Comment: Depression, suicidality, drug abuse. Pending mental health assessment for potential placement. Last updated by Boogie Hanley DO at 04/17/24 14:27 Discharge Plan Discharge Details Chief Complaint: PsychEval Clinical Impression: Depression, Polysubstance abuse Primary Care Provider: Unknown,Unknown ED Provider: Carlee Vera Home Meds and New Rx's Prescriptions: No Action methadone 10 mg/mL concentrate 100 mg PO DAILY Patient Comments: @ [facility], verified last dose 03/30/24 for 100mg
--- NOTE | 2024-04-17 18:28 | CMSP_ITS ---
Date of service: 04/17/24 Time of Service: 18:29 Care Management Safety Plan Status Status: Voluntary Reason for Wait Reason for Wait: Inpatient Admission Safety Plan Safety Plan: VOLUNTARY FOR INPATIENT PSYCHIATRIC STABILIZATION.? Patient is appropriate in all interactions since arriving at [facility]; Pt has demonstrated appropriate coping and communication skills, has articulated his or her needs and concerns and is fully engaged during staff interactions. Safety plan has been established with patient, and care team, to adhere to patient goals, identify restrictions based on behavioral status, address nutrition, and determine allowed personal belongings, tools for hygiene and personal care. Determine level of activity including ambulation, level of superv ision, visitors, and determine privileges based on behaviors and level of engagement by pt. VOLUNTARY SAFETY PLAN: 1. Will remain on suicide precautions, in paper clothes 2. Will remain in Zone B under direct supervision of one-on-one staff at all times provided by [employer]; RADHA, EVENTS MANAGER territory service representative. 3. May have paper cups, plates, finger foods as well as a cardboard spoon with which to eat meals. 4. Follow [facility] Management of the Admitted Behavioral Health Patient policy. 5. Shower available in Zone B without restriction. 6. Personal belongings-soft items permitted at RN discretion. 7. Visitors- at RN discretion. 8. Activities: soft cart items approved per RN discretion. 9.? Bathroom available in Zone B without restriction. 10. Phone: limited to [facility] cordless phone at RN discretion. Due to VOLUNTARY status, if patient wishes to leave [facility], staff will contact [facility] Crisis Screener ([phone]) and Instrumentation Chemist ([phone]) as soon as possible. In the event of elopement, notify [facility] Police ([phone]). Patient is currently voluntarily at [facility] and seeking inpatient admission when a bed becomes available. [facility] Frontline Wastewater Treatment Plant Operator will continue seeking p lacement. Please contact the Instrumentation Chemist ([phone]) and [facility] Wastewater Treatment Plant Operator ([phone]) for any needed changes in the Safety Plan. Safety plan has been provided to interdepartmental care team.
--- NOTE | 2024-04-17 18:28 | PDOC.CMSAFE ---
Date of service: 04/17/24 Time of Service: 18:29 Care Management Safety Plan Status Status: Voluntary Reason for Wait Reason for Wait: Inpatient Admission Safety Plan Safety Plan: VOLUNTARY FOR INPATIENT PSYCHIATRIC STABILIZATION.? Patient is appropriate in all interactions since arriving at [facility]; Pt has demonstrated appropriate coping and communication skills, has articulated his or her needs and concerns and is fully engaged during staff interactions. Safety plan has been established with patient, and care team, to adhere to patient goals, identify restrictions based on behavioral status, address nutrition, and determine allowed personal belongings, tools for hygiene and personal care. Determine level of activity including ambulation, level of supervision, visitors, and determine privileges based on behaviors and level of engagement by pt. VOLUNTARY SAFETY PLAN: 1. Will remain on suicide precautions, in paper clothes 2. Will remain in Zone B under direct supervision of one-on-one staff at all times provided by [employer]; RADHA, POLICE LIEUTENANT automatic buffing wheel former. 3. May have paper cups, plates, finger foods as well as a cardboard spoon with which to eat meals. 4. Follow [facility] Management of the Admitted Behavioral Health Patient policy. 5. Shower available in Zone B without restriction. 6. Personal belongings-soft items permitted at RN discretion. 7. Visitors- at RN discretion. 8. Activities: soft cart items approved per RN discretion. 9.? Bathroom available in Zone B without restriction. 10. Phone: limited to [facility] cordless phone at RN discretion. Due to VOLUNTARY status, if patient wishes to leave [facility], staff will contact [facility] Crisis Screener ([phone]) and Girls Tennis Coach ([phone]) as soon as possible. In the event of elopement, notify [facility] Police ([phone]). Patient is currently voluntarily at [facility] and seeking inpatient admission when a bed becomes available. [facility] Frontline Party Host/Hostess will continue seeking placement. Please contact the Girls Tennis Coach ([phone]) and [facility] Party Host/Hostess ([phone]) for any needed changes in the Safety Plan. Safety plan has been provided to interdepartmental care team.
--- NOTE | 2024-04-17 18:30 | CMPROGNOTE_ITS ---
Date of service: 04/17/24 Time of Service: 18:30 Care Management Progress Note Progress Note Text Progress Note Text: William left AMA from the ED yesterday evening, when he was not able to receive methadone (his dose was not verified at that time). He returned to the ED today, stating that he went home, injected 3 bags of fentanyl and drank 18 beers. He expressed depression, sadness and SI to staff. He was assessed by [facility] who reported that he meets criteria for voluntary inpatient psychiatric treatment. CM huddled with staff regarding his plan of care. A safety plan was placed. Referrals were sent to all accepting facilities. CM will continue to follow.
[2024-04-17] MEDS: chlordiazePOXIDE 25 MG CAP 50 MG PO (20:04)
[2024-04-17] MEDS: cloNIDine 0.1 MG TAB PO (20:04)
--- NOTE | 2024-04-18 08:35 | W.EDPROG ---
Date of service: 04/18/24 Time of Service: 08:35 Medical Decision Making I received signout on this 43-year-old patient in the emergency department voluntarily in the setting of suicidal ideation. No active behavioral issues last shift. Will update documentation and signed patient out to the oncoming evening provider. 10:26 AM I spoke with Lula from [facility] who reported that the patient will remain voluntary. 4:42 PM No active behavioral issues on my shift. Will sign patient out to the evening provider. Quality:[facility] Health Related Social Needs: No Data to Display Sign Out Sign Out Data: Sign Out Comment: Depression, suicidality, drug abuse. Pending mental health assessment for potential placement. Last updated by Boogie Hanley DO at 04/17/24 14:27 Sign Out Comment: PENDING VOLUNTARY PLACEMENT SI SIGNIFICANT POLYSUBSTANCE ABUSE HISTORY Last updated by Carlee Vera MD at 04/17/24 22:40 Discharge Plan Discharge Details Chief Complaint: PsychEval Clinical Impression: Depression, Polysubstance abuse Primary Care Provider: Unknown,Unknown ED Provider: Madan Doherty Home Meds and New Rx's Prescriptions: No Action methadone 10 mg/mL concentrate 100 mg PO DAILY Patient Comments: @ [facility] last dose 03/30/24 for 100mg
[2024-04-18] MEDS: Methadone Liquid 10 MG/ML 100 MG PO (09:26)
[2024-04-18 12:30] VITALS: BP 150/82; PULSE 60; RESP 18; TEMP 36.6; O2SAT 96
--- NOTE | 2024-04-18 18:45 | CMPROGNOTE_ITS ---
Date of service: 04/18/24 Time of Service: 18:46 Care Management Progress Note Progress Note Text Progress Note Text: ALEA spoke to Lula [facility], who stated that William refused to meet with her for his daily assessment this morning. CM met with William and explained that he does need to participate in daily assessments by [facility], as they are helping to coordinate his inpatient psychiatric treatment. ALEA stated that he is voluntary, and if he is not willing to seek xena atment or participate in assessments, he would no longer meet criteria to remain at [facility]. He expressed understanding and participated in the conversation with Lula. Lula stated that he did get agitated at times throughout the conversation, but that she reminded him that she is here to help, and he was able to redirect. Per [facility], William continues to meet criteria for voluntary inpatient psychiatric treatment. Referrals have been sent to all facilities. No changes to safety plan today.
--- NOTE | 2024-04-18 18:45 | CMSP_ITS ---
Date of service: 04/18/24 Time of Service: 18:45 Care Management Safety Plan Status Status: Voluntary Reason for Wait Reason for Wait: Inpatient Admission Safety Plan Safety Plan: VOLUNTARY FOR INPATIENT PSYCHIATRIC STABILIZATION.? Patient is appropriate in all interactions since arriving at [facility]; Pt has demonstrated appropriate coping and communication skills, has articulated his or her needs and concerns and is fully engaged during staff interactions. Safety plan has been established with patient, and care team, to adhere to patient goals, identify restrictions based on behavioral status, address nutrition, and determine allowed personal belongings, tools for hygiene and personal care. Determine level of activity including ambulation, level of superv ision, visitors, and determine privileges based on behaviors and level of engagement by pt. VOLUNTARY SAFETY PLAN: 1. Will remain on suicide precautions, in paper clothes 2. Will remain in Zone B under direct supervision of one-on-one staff at all times provided by [employer]; RADHA, SCRUB NURSE information and data architect analyst. 3. May have paper cups, plates, finger foods as well as a cardboard spoon with which to eat meals. 4. Follow [facility] Management of the Admitted Behavioral Health Patient policy. 5. Shower available in Zone B without restriction. 6. Personal belongings-soft items permitted at RN discretion. 7. Visitors- at RN discretion. 8. Activities: soft cart items approved per RN discretion. 9.? Bathroom available in Zone B without restriction. 10. Phone: limited to [facility] cordless phone at RN discretion. Due to VOLUNTARY status, if patient wishes to leave [facility], staff will contact [facility] Crisis Screener ([phone]) and Singer And Unloader ([phone]) as soon as possible. In the event of elopement, notify [facility] Police ([phone]). Patient is currently voluntarily at [facility] and seeking inpatient admission when a bed becomes available. [facility] Frontline Residential Assistant will continue seeking p lacement. Please contact the Singer And Unloader ([phone]) and [facility] Residential Assistant ([phone]) for any needed changes in the Safety Plan. Safety plan has been provided to interdepartmental care team.
--- NOTE | 2024-04-18 18:45 | PDOC.CMSAFE ---
Date of service: 04/18/24 Time of Service: 18:45 Care Management Safety Plan Status Status: Voluntary Reason for Wait Reason for Wait: Inpatient Admission Safety Plan Safety Plan: VOLUNTARY FOR INPATIENT PSYCHIATRIC STABILIZATION.? Patient is appropriate in all interactions since arriving at [facility]; Pt has demonstrated appropriate coping and communication skills, has articulated his or her needs and concerns and is fully engaged during staff interactions. Safety plan has been established with patient, and care team, to adhere to patient goals, identify restrictions based on behavioral status, address nutrition, and determine allowed personal belongings, tools for hygiene and personal care. Determine level of activity including ambulation, level of supervision, visitors, and determine privileges based on behaviors and level of engagement by pt. VOLUNTARY SAFETY PLAN: 1. Will remain on suicide precautions, in paper clothes 2. Will remain in Zone B under direct supervision of one-on-one staff at all times provided by [employer]; RADHA, MECHANICAL SHOP LABORER records management technician. 3. May have paper cups, plates, finger foods as well as a cardboard spoon with which to eat meals. 4. Follow [facility] Management of the Admitted Behavioral Health Patient policy. 5. Shower available in Zone B without restriction. 6. Personal belongings-soft items permitted at RN discretion. 7. Visitors- at RN discretion. 8. Activities: soft cart items approved per RN discretion. 9.? Bathroom available in Zone B without restriction. 10. Phone: limited to [facility] cordless phone at RN discretion. Due to VOLUNTARY status, if patient wishes to leave [facility], staff will contact [facility] Crisis Screener ([phone]) and Manager Of Application Development ([phone]) as soon as possible. In the event of elopement, notify [facility] Police ([phone]). Patient is currently voluntarily at [facility] and seeking inpatient admission when a bed becomes available. [facility] Frontline Last Chalker will continue seeking placement. Please contact the Manager Of Application Development ([phone]) and [facility] Last Chalker ([phone]) for any needed changes in the Safety Plan. Safety plan has been provided to interdepartmental care team.
--- NOTE | 2024-04-18 18:45 | PDOC.CMPRO ---
Date of service: 04/18/24 Time of Service: 18:46 Care Management Progress Note Progress Note Text Progress Note Text: ALEA spoke to Lula [facility], who stated that William refused to meet with her for his daily assessment this morning. CM met with William and explained that he does need to participate in daily assessments by [facility], as they are helping to coordinate his inpatient psychiatric treatment. ALEA stated that he is voluntary, and if he is not willing to seek treatment or participate in assessments, he would no longer meet criteria to remain at [facility]. He expressed understanding and participated in the conversation with Lula. Lula stated that he did get agitated at times throughout the conversation, but that she reminded him that she is here to help, and he was able to redirect. Per [facility], William continues to meet criteria for voluntary inpatient psychiatric treatment. Referrals have been sent to all facilities. No changes to safety plan today.
--- NOTE | 2024-04-18 18:49 | W.EDPROG ---
Date of service: 04/18/24 Time of Service: 18:49 Medical Decision Making Care assumed from off going provider. Patient is a 43-year-old gentleman with with history of polysubstance abuse. Currently pending inpatient voluntary psychiatric placement. Reports suicidal ideation. He is medically cleared and pending placement. Has spent most of the day sleeping. Quality:[facility] Health Related Social Needs: No Data to Display Sign Out Sign Out Data: Sign Out Comment: Depression, suicidality, drug abuse. Pending mental health assessment for potential placement. Last updated by Boogie Hanley DO at 04/17/24 14:27 Sign Out Comment: PENDING VOLUNTARY PLACEMENT SI SIGNIFICANT POLYSUBSTANCE ABUSE HISTORY Last updated by Carlee Vera MD at 04/17/24 22:40 Sign Out Comment: Voluntary pending placement. Significant history of polysubstance abuse. No active behavioral issues last shift. Last updated by Madan Doherty MD at 04/18/24 16:44 Discharge Plan Discharge Details Chief Complaint: PsychEval Clinical Impression: Depression, Polysubstance abuse Primary Care Provider: Unknown,Unknown ED Provider: Carlee Vera Home Meds and New Rx's Prescriptions: No Action methadone 10 mg/mL concentrate 100 mg PO DAILY Patient Comments: @ [facility], verified last dose 03/30/24 for 100mg
[2024-04-19] MEDS: Methadone Liquid 10 MG/ML 100 MG PO (09:20)
--- NOTE | 2024-04-19 11:10 | MHPN_ITS ---
Date of service: 04/19/24 Time of Service: 10:30 Mental Health Emergency Note Release NK release signed:: Yes Reason for Visit In the last 2 weeks has the pt presented for ES prior to today?: Yes, presented at [facility] ED Non Suicidal Self Injury Current: No Asssessment/Mental Status Appearance: Disheveled Attitude: Guarded and Other (uncooperative ) Behavior: Unremarkable Speech: Incoherent Affect: Flat and Incongurent with mood Mood: Sad, Depressed and Irritable Thought process: Unremarkable Hallucinations: No Delusions: No Attention: Unremarkable Perception: Not impaired Orientation: Fully orientated Memory: Intact Insight: Fair Judgement: Fair Neurovegetative Symptoms Sleep: Decrease Appetitie: Decrease Interests: Decrease Energy: Decrease Libido: Not applicable Impression Client was reassessed while at [facility] waiting for voluntary inpatient placement. Client appeared to this commercial insurance underwriter as depressed. Client reported that he is not sleeping and wanted to be asleep rather than being awake. Client reported that he has not been eating his food. Client was observed by this commercial insurance underwriter as laying flat on his back in the bed and not making eye contact with this commercial insurance underwriter. Client did not move from that position during the assessment. Client was often asked to repeat himself as this commercial insurance underwriter could not understand his speech. Plan/Disposition Recommended Disposition: Hospitalization No. Plan: Client will remain at [facility] till inpatient placement is found. CLient will need daily reassessments till placed. Reports/communication Outcome discussed with: ED/Personnel
[2024-04-19 14:06] VITALS: BP 139/94; PULSE 47; TEMP 36.1; O2SAT 99
--- NOTE | 2024-04-19 14:48 | W.EDPROG ---
Date of service: 04/19/24 Time of Service: 14:48 Medical Decision Making 800 -- Patient was signed out by Dr. Henry. Please see his documentation regarding earlier ED course. Patient here for suicidality and substance abuse. Patient medically cleared and care management working on placement. 1450 -- Patient is feeling better. He is no longer suicidal. He has no plan for suicidality. He is requesting discharge. He plans to go see his father. He understands he return to the emergency ferment at any time should he have worsening or new concerning symptoms. I recommended he speak with the athletic coach and he declined. I will consult crisis screener at [facility] to review safety plan for discharge with the patient. -- Patient eloped prior to developing safety plan with [facility] and prior to receiving formal discharge instructions. Will contact law enforcement to request patient be brought back for safety planning. Quality:[facility] Health Related Social Needs: No Data to Display Sign Out Sign Out Data: Sign Out Comment: Depression, suicidality, drug abuse. Pending mental health assessment for potential placement. Last updated by Boogie Hanley DO at 04/17/24 14:27 Sign Out Comment: PENDING VOLUNTARY PLACEMENT SI SIGNIFICANT POLYSUBSTANCE ABUSE HISTORY Last updated by Carlee Vera MD at 04/17/24 22:40 Sign Out Comment: Voluntary pending placement. Significant history of polysubstance abuse. No active behavioral issues last shift. Last updated by Madan Doherty MD at 04/18/24 16:44 Sign Out Comment: PENDING VOLUNTARY PLACEMENT SI SIGNIFICANT POLYSUBSTANCE ABUSE HISTORY Last updated by Carlee Vera MD at 04/18/24 22:28 Sign Out Comment: Continues to be voluntary for inpatient admission for SI/substance abuse. No issues/changes overnight. Last updated by Earl Henry MD at 04/19/24 07:02 Discharge Plan Disposition Patient Disposition: Eloped Condition: Stable Discharge Details Clinical Impression: Depression, Polysubstance abuse Primary Care Provider: Unknown,Unknown ED Provider: Carlos Coombs Home Meds and New Rx's Prescriptions: Continued methadone 10 mg/mL concentrate 100 mg PO DAILY Patient Comments: @ [facility], yissel last dose 03/30/24 for 100mg Discharge Instructions Instructions: Opioid use disorder, Depression, Adult ED Additional Instructions: Please follow-up with [facility] human services. Please follow-up with your substance abuse treatment team at [facility]. Please contact your primary care physician to arrange follow-up. Return to the ER immediately for any worsening or new concerning symptoms. Referrals: [facility] [Outside] [facility] [Outside]
--- NOTE | 2024-04-19 20:05 | PDOC.CMPRO ---
Date of service: 04/19/24 Time of Service: 20:05 Care Management Progress Note Progress Note Text Progress Note Text: William has been voluntary, awaiting psychiatric treatment. Today he reported to his RN that he no longer wishes to stay. [facility] was contacted and he was not willing to stay in order to create a safety plan; he eloped the ED prior to full discharge. He did not meet criteria for EE hold. SDOH(Care Management) Screening Will the Patient Participate in the Screening?: Unable to obtain
== END 2024-04-19 15:10 | disposition left against medical advice (07) ==
PROVIDERS: Student in an Organized Health Care Education/Training Program; Emergency Provider Student in an Organized Health Care Education/Training Program
DX: R45.851 Suicidal ideations (principal); F32.A Depression, unspecified; F19.10 Other psychoactive substance abuse, uncomplicated; F10.20 Alcohol dependence, uncomplicated; Z86.718 Personal history of other venous thrombosis and embolism
CPT/HCPCS: 00123; 36415; 80053; 80307; 96360; 99285; 80320; 80329; 84443; 85025

== ENCOUNTER 2024-04-20 02:14 | Emergency (ER) | payer MEDICAID, SELFPAY ==
[2024-04-20 02:18] VITALS: BP 164/113; PULSE 80; RESP 16; TEMP 37.3; O2SAT 98
--- NOTE | 2024-04-20 02:29 | ED.GENADUL_ITS ---
Discharge Plan Discharge Details Chief Complaint: PsychEval Clinical Impression: Suicidal ideation, Depression, Polysubstance abuse Primary Care Provider: Unknown,Unknown ED Provider: Earl Henry Meds and New Rx's Prescriptions: No Action methadone 10 mg/mL concentrate 100 mg PO DAILY Patient Comments: @ [facility], verified last dose 03/30/24 for 100mg HPI General Mode of arrival: ambulatory . Date/Time Provider Initiated Documentation: 04/20/24 02:29 . Limitations to Documentation: no limitations . Information obtained by: patient . HPI Narrative: Patient presents back to ED after leaving on the eighth. He had been here for 4 days awaiting placement for depression, SI, substance abuse. Actually eloped from the department prior to having a safety plan in place per old records. S tates that he went out and used fentanyl and alcohol. Now returns stating that he is suicidal and wants to kill himself again. Denies any physical complaints. Has been in and out of the ED with similar presentations multiple times over the course of this month. Related Data Home Medications Medication Instructions Recorded Confirmed methadone 10 mg/mL oral concentrate 100 mg PO DAILY 10/10/23 04/20/24 Allergies Allergy/AdvReac Type Severity Reaction Status Date / Time No Known Allergies Allergy Verified 04/20/24 02:22 General Stated Complaint: PsychEval RAVEN: 2 Review of Systems Narrative: Per HPI Exam Narrative Exam Narrative: Const: WDWN male in NAD. VS per triage. HEENT: NC/AT. Normal facial exam. Neck: Supple. Trachea midline. Lungs: Normal respiratory effort. Lungs are clear. Cor: RRR without murmur. Good radial pulses. GI: Soft/ND/NT. Neuro: A+O x 3. Normal speech, mentation, gait. Cranial nerves II - XII grossly intact. No gross motor or sensory deficit. Ext: No C/C/E. Skin: Few abrasions and areas of picked scabs. No evidence of abscess or cellulitis. Psych: Reporting continued depression and SI Course Vital Signs Vital signs: Vital Signs Temperature 99.1 F 04/20/24 02:18 Pulse 80 04/20/24 02:18 Respiratory Rate 16 04/20/24 02:18 Blood Pressure 164/113 H 04/20/24 02:18 Pulse Oximetry 98 04/20/24 02:18 Temperature 99.1 F 04/20/24 02:18 Temperature Source Temporal Artery Scan 04/20/24 02:18 Pulse 80 04/20/24 02:18 Respiratory Rate 16 04/20/24 02:18 Respiratory Effort Normal, Non-Labored 04/20/24 02:23 Blood Pressure 164/113 H 04/20/24 02:18 Blood Pressure Position Sitting 04/20/24 02:18 Pulse Oximetry 98 04/20/24 02:18 Oxygen Delivery Method Room Air 04/20/24 02:18 Oxygen Flow Rate 0 04/20/24 02:18 Pain Level 0 04/20/24 02:18 Medical Decision Making Patient returns to ED after leaving on the eighth while he had been here for same presentation. When out and used fentanyl and alcohol and now returns with complaint of continued SI. This has been a recurrent scenario with multiple visits under the same circumstances. Will repeat his labs and placed on suicide watch pending mental health evaluation. Patient's labs are unremarkable. Urine drug screen is still pending. However his alcohol level is under 100 and his Tylenol and aspirin are negative. He is cleared to be seen by mental health. Urine drug screen positive for methadone, benzodiazepines, cocaine, marijuana. Patient pending evaluation by mental health. Signed out to oncoming ED physician pending mental health evaluation. Lab Data Lab results reviewed: Yes I reviewed the patient's lab results. PFSH All Active Problems (Updated 04/20/24 @ 05:19 by Earl Henry MD) Depression (Chronic) Suicide ideation (Acute) Polysubstance abuse (Acute) Opioid use disorder (Acute) Nicotine dependence (Acute) Opioid dependence on agonist therapy (Acute) Alcohol dependence (Chronic) Medical History Pancreatitis DVT (deep venous thrombosis) History of osteomyelitis Hepatitis B Hepatitis C Depression Alcohol withdrawal Polysubstance abuse Family History Other Alcohol use disorder Depression Social History Smoking/Tobacco Use Status: Current every day Tobacco Type: cigarettes Smoking risk assessment performed?: Yes Alcohol Intake: current Alcohol Intake frequency: 3 or more drinks per day Alcohol type: hard liquor Drug use: Daily Substance use type: marijuana, crack/cocaine, heroin, opiates, painkillers, IV drugs, methamphetamine and prescription drug Details: last use fentanyl 9pm on 04/19/24 last alcohol 11pm on 04/19/24 Housing: apartment Do you feel safe at home: Yes Do you feel safe in your relationship?: Yes PAWSS Have you Been Recently Intoxicated or Drunk Within the Last 30 days?: Yes Have you Ever Experienced Previous Episodes of Alcohol Withdrawal?: Yes Have you ever Experienced Withdrawal Seizures?: No Have you ever Experienced Delirium Tremens(DT)s?: Yes Have you ever undergone Alcohol Rehabilitation Treatment (i.e, inpt ot outpatient treatment programs)?: Yes Have you ever Experienced Blackouts?: No Have you ever Combined Alcohol with other Downers within the last 90 days?: Yes Have you ever Combined Alcohol with any other Substance of Abuse during the last 90 days?: Yes Positive Blood Alcohol level on Presentation? [PCS.BAL]: Yes Evidence of Increased Autonomic Activity (i.e. HR>120, tremor, sweating, agitation, nausea)?: No Result: 7
--- NOTE | 2024-04-20 02:31 | NUR.NOTE ---
Pt has retured I went into chart to check for discharge instructions.
[2024-04-20 03:32] LABS: HCT 45.9 % (40.0-50.0); HGB 15.2 g/dL (13.5-17.5); MCH 30.3 pg (27.0-33.0); MCHC 33.1 % (32.0-36.0); MCV 91 fL (80-95); MPV 8.5 fL (8.0-11.0); Platelet Count 246 10^3/uL (130-400); RBC 5.02 10^6/uL (4.36-5.78); RDW 17.1 % (11.8-14.1); RDW-SD 55.2 fL; WBC 6.74 10^3/uL (4.4-10.8)
[2024-04-20 04:27] LABS: Salicylate < 2.8 mg/dL (<2.8)
[2024-04-20 04:37] LABS: Acetaminophen < 2 ug/mL (10-30)
[2024-04-20 04:51] LABS: ALT 18 U/L (16-63); AST 28 U/L (15-37); Albumin 3.3 g/dL (3.4-5.0); Alkaline Phosphatase 85 U/L (46-116); Anion Gap 6.7 mmol/L (3-11); BUN 4 mg/dL (7-18); Bilirubin, Total 0.32 mg/dL (0.2-1.0); CO2 31.3 mmol/L (21.0-32.0); CREATININE 0.9 mg/dL (0.70-1.30); Calcium 9.1 mg/dL (8.5-10.1); Chloride 102 mmol/L (98-107); ETHANOL BLOOD 78.1 mg/dL (<10); Estimated GFR 108.01 (mL/min/1.73m2); Glucose 83 mg/dL (74-106); Sodium 140 mmol/L (136-145); Total Protein 8.4 g/dL (6.4-8.2)
[2024-04-20 05:30] LABS: *AMPHETAMINES SCREEN URINE Negative (Negative); *BARBITURATES SCREEN URINE Negative (Negative); *BENZODIAZEPINES SCREEN URINE Positive (Negative); Cannabinoids THC Positive (Negative); Cocaine Screen,Urine Positive (Negative); METHADONE URINE SCREEN Positive (Negative); OPIATES URINE SCREEN Negative (Negative)
[2024-04-20 05:31] LABS: Tricyclic Antidepressants Negative (Negative)
[2024-04-20 08:20] VITALS: BP 173/98; PULSE 57; TEMP 36.7; O2SAT 97
--- NOTE | 2024-04-20 10:03 | CMSP_ITS ---
Date of service: 04/20/24 Time of Service: 10:03 Care Management Safety Plan Status Status: Voluntary Reason for Wait Reason for Wait: Inpatient Admission (Mental Health Evaluation) Safety Plan Safety Plan: VOLUNTARY FOR INPATIENT PSYCHIATRIC STABILIZATION. Patient is appropriate in all interactions since arriving at [facility]; Pt has demonstrated appropriate coping and communication skills, has articulated his or her needs and concerns and is fully engaged during staff interactions. ER Visit note 04/20/24 states: Patient presents back to ED after leaving on the eighth. He had been here for 4 days awaiting placement for depression, SI, substance abuse. Actually eloped from the department prior to having a safety plan in place per old records. States that he went out and used fentanyl and alcohol. Now returns stating that he is suicidal and wants to kill himself again. Denies any physical complaints. Has been in and out of the ED with similar presentations multiple times over the course of this month. Awaiting [facility] screening. Safety plan has been established with patient, and care team, to adhere to patient goals, identify restrictions based on behavioral status, address nutrition, and determine allowed personal belongings, tools for hygiene and personal care. Determine level of activity including ambulation, level of supervision, visitors, and determine privileges based on behaviors and level of engagement by pt. SAFETY PLAN: 1. Will remain on suicide precautions. In Paper Clothes 2. Will remain in room under direct supervision of one-on-one staff at all times provided by [employer]; RADHA, RACE CAR MECHANIC private tutors and teachers. 3. May have paper cups, plates, finger foods as well as a cardboard spoon with which to eat meals. 4. Follow [facility] Management of the Admitted Behavioral Health Patient policy. 5. Comfort bath system only, shower permitted with escort at RN discretion. 6. No personal belongings-soft items permitted at RN discretion. 7. Visitors-none at this time. 8. Activities: soft cart items approved per RN discretion. 9. Bathroom privileges with escort in the ED, available in room without limitation on M/S. 10. Phone: contact limited to family at this time, via cordless phone at RN discretion. 11. Due to VOLUNTARY status, if patient wishes to leave [facility], staff will contact [facility] Crisis Screener ([phone]) and On-Call Change Control Specialist ([phone]) as soon as possible. In the event of elopement, notify [facility] Police ([phone]). Patient is currently voluntarily at [facility] and seeking inpatient admission when a bed becomes available. [facility] Frontline Criminal Analyst will continue seeking placement. Please contact the Corner Former Change Control Specialist ([phone]) and [facility] Criminal Analyst ([phone]) for any needed changes in the Safety Plan. Safety plan has been provided to interdepartmental care team.
--- NOTE | 2024-04-20 10:12 | W.EDPROG ---
Date of service: 04/20/24 Time of Service: 10:12 Medical Decision Making Resting comfortably no acute distress. Medically cleared. No signs of withdrawal. Patient has been accepted at [facility] retrea provider to provider signout has been given to AMARILYS Dixon. Quality:[facility] Health Related Social Needs: No Data to Display Sign Out Sign Out Data: Sign Out Comment: Pending reevaluation by mental health after he returned to ED with complaint of depression and SI Last updated by Earl Henry MD at 04/20/24 07:32 Discharge Plan Disposition Patient Disposition: Psychiatric Hospital/Unit Specific Psychiatric Facility: [facility] Condition: Stable Discharge Details Chief Complaint: PsychEval Clinical Impression: Suicidal ideation, Depression, Polysubstance abuse Primary Care Provider: Unknown,Unknown ED Provider: Christian Vanessa Home Meds and New Rx's Prescriptions: No Action methadone 10 mg/mL concentrate 100 mg PO DAILY Patient Comments: @ [facility], verified last dose 03/30/24 for 100mg
[2024-04-20] MEDS: Methadone Liquid 10 MG/ML 100 MG PO (10:50)
--- NOTE | 2024-04-20 11:02 | NUR.NOTE ---
Patient's CIWA score is negative. Patient has been here sleeping since arrival and just woke up to void. Valencia is concerned as he scored on his subjective information for the CIWA during yesterday's visit. Patient was monitored and documented on frequently, patient slept the most of the day yesterday. Left AMA last night and returned early this morning around 0230 after using cocaine.
[2024-04-20 11:39] VITALS: BP 174/97; PULSE 58; RESP 12; TEMP 36.9; O2SAT 97
--- NOTE | 2024-04-20 11:46 | NUR.NOTE ---
Did a new CIWA on patient along with a set of vital signs. Patient had to be awakened to perform both tasks. Patient scored 0 on his CIWA and his VS were as follows; 174/97, 58, 12, 97%, 98.4f po. Results were called to Valencia Adameat and given to Juan @ [phone].
--- NOTE | 2024-04-20 13:00 | PDOC.CMDIS ---
Date of service: 04/20/24 Time of Service: 13:00 LACE Index Scoring Tool Questions: Length of Stay (in days): 1 Was the patient admitted via the E.D.?: Yes E.D. Visits: 8 Answers: Total Score: 8 Risk of Readmission: Low Risk Care Management Discharge Plan Reason for Hospitalization: Suicidal ideation, Depression, Polysubstance abuse Discharge Plan: William is discharged to [facility] for inpatient treatment. He is transported via Cost Reduction Engineer. Patient/Family Education Needs: Review discharge instructions, Discuss ask me three. Services Needed at Discharge: Psychiatric Facility ([facility]) and Transportation (Coordinated by [facility] B Staff) SDOH Health Related Social Needs: No Data to Display Disposition Disposition: [facility] via of: Cost Reduction Engineer
== END 2024-04-20 13:17 ==
PROVIDERS: Emergency Medicine; Emergency Provider Emergency Medicine
DX: R45.851 Suicidal ideations (principal); F32.A Depression, unspecified; F19.10 Other psychoactive substance abuse, uncomplicated; F17.210 Nicotine dependence, cigarettes, uncomplicated; Z86.19 Personal history of other infectious and parasitic diseases; Z86.718 Personal history of other venous thrombosis and embolism
CPT/HCPCS: 00123; 36415; 80053; 80307; 85027; 99285; 80320; 80329

== ENCOUNTER 2024-10-08 11:20 | Emergency (ER) | payer MEDICAID, SELFPAY ==
[2024-10-08 11:22] VITALS: BP 180/118; PULSE 90; RESP 14; TEMP 36.6; O2SAT 93
--- NOTE | 2024-10-08 11:50 | ED.GENADUL_ITS ---
Discharge Plan Disposition Patient Disposition: Against Medical Advice Condition: Stable Discharge Details Clinical Impression: Cellulitis Primary Care Provider: Unknown,Unknown ED Provider: Boogie Branham Home Meds and New Rx's Prescriptions: Continued methadone 10 mg/mL concentrate 100 mg PO DAILY Patient Comments: @ HUNTER, verified last dose 03/30/24 for 100mg bupropion HCl 150 mg tablet extended release 24 hr 150 mg PO DAILY Patient Comments: TAKE ONE TABLET BY MOUTH EVERY DAY fluoxetine 20 mg capsule 20 mg PO DAILY Patient Comments: TAKE ONE CAPSULE BY MOUTH EVERY DAY aripiprazole 10 mg tablet 10 mg PO DAILY Patient Comments: TAKE ONE TABLET BY MOUTH AT BEDTIME hydroxyzine pamoate 50 mg capsule 50 mg PO .q6 h PRN Patient Comments: TAKE ONE CAPSULE BY MOUTH EVERY 6 HOURS NEEDED omeprazole 20 mg capsule,delayed release(DR/EC) 20 mg PO DAILY Patient Comments: TAKE ONE CAPSULE BY MOUTH EVERY DAY gabapentin 300 mg capsule 300 mg PO TID Patient Comments: TAKE ONE CAPSULE BY MOUTH THREE TIMES A DAY DIRECTED Discharge Instructions Instructions: Fever, Adult ED Additional Instructions: Patient chose to leave AGAINST MEDICAL ADVICE, acknowledge that he has some markers of sepsis including a lactate of 2.6, no leukocytosis but does have cellulitis to left lower leg, chronic nature and started as a respiratory illness last week now having nausea and vomiting in the setting of chronic EtOH use. I stated I would send him some antibiotics based on any empiric results I got back should he desire to pick them up at [facility] later today Discharge Data Discharge Date/Time-TO BE ENTERED AT DEPARTURE: 10/08/24 12:54 HPI General Date/Time Provider Initiated Documentation: 10/08/24 11:31 . HPI Narrative: 44 year-old male presents to ED today by POV/ambulating with a chief complaint of nausea/vomiting with daily ETOH intake, known chronic leg infection secondary to history IVDU use, and some diarrhea and constipation with onset over the past 3-4 days. Quality described as generalized nausea, no intractable vomiting, denies fever, denies URI symptoms, denies chest pain, has known chronic leg wound. Severity is described as moderate. Palliating factors include nothing specific attempted- still keeping ETOH down. Provoking factors include nothing specific. Patient not anticoagulated. Related Data Home Medications ?Medication ?Instructions ?Recorded ?Confirmed methadone 10 mg/mL oral concentrate 100 mg PO DAILY 10/10/23 10/08/24 aripiprazole 10 mg tablet 10 mg PO DAILY 10/08/24 10/08/24 bupropion HCl 150 mg 24 hr tablet, 150 mg PO DAILY 10/08/24 10/08/24 extended release fluoxetine 20 mg capsule 20 mg PO DAILY 10/08/24 10/08/24 gabapentin 300 mg capsule 300 mg PO TID 10/08/24 10/08/24 hydroxyzine pamoate 50 mg capsule 50 mg PO .q6 h PRN 10/08/24 10/08/24 omeprazole 20 mg capsule,delayed 20 mg PO DAILY 10/08/24 10/08/24 release Allergies Allergy/AdvReac Type Severity Reaction Status Date / Time No Known Allergies Allergy Verified 10/08/24 11:30 General Stated Complaint: Abd Prob RAVEN: 3 Review of Systems All systems reviewed & are unremarkable except as noted in HPI and below Exam Narrative Exam Narrative: GENERAL APPEARANCE: Well-nourished, non-toxic, awake and alert, atraumatic, no acute distress. SKIN: Warm, pink, dry, intact, diffuse erythema around some chronic lesions to the left anterior calf with purulent hard and centers, no lymphadenitis, no fluctuant abscesses HEAD: Normocephalic, atraumatic, normal hair distribution for gender/age. EYES: Normal conjunctiva, no exudates on lids/lashes. ENT: Nares patent, no circumoral cyanosis, no facial swelling NECK: Supple, trachea midline, painless cervical ROM. LUNGS/CHEST: Lungs CTA bilaterally-no rhonchi/rales/wheezes diffusely, non- labored respirations, normal A/P diameter, symmetrical expansion, no chest wall deformity HEART (CV/PV): Regular rate and rhythm without murmur, no peripheral edema, no JVD. ABDOMEN: Soft, non-distended, no guarding, no Canut sign, no McBurney's point tenderness, no rebound tenderness or Rovsing's, mild epigastric tenderness. MSK: Normal ROM, no swelling/deformity to bilateral UEs or LEs, moving all extremities without weakness, no cyanosis, spine midline without tenderness, normal curvature. NEURO: Mental Status AAOx4 - alert to person, place, time, events No facial droop, no forehead involvement. Motor: No focal weakness - strength 5/5 in bilateral UEs and LEs, proximal and distal, symmetric. Sensory: sensation intact to light touch globally. Gait normal: patient ambulated without ataxia into ED room. PSYCH: euthymic, cooperative, pleasant, appropriate speech Course Vital Signs Vital signs: Vital Signs Temperature 36.6 C 10/08/24 11:22 Pulse 90 10/08/24 11:22 Respiratory Rate 14 10/08/24 11:22 Blood Pressure 180/118 H 10/08/24 11:22 Pulse Oximetry 93 10/08/24 11:22 Temperature 36.6 C 10/08/24 11:22 Temperature Source Oral 10/08/24 11:22 Pulse 90 10/08/24 11:22 Respiratory Rate 14 10/08/24 11:22 Blood Pressure 180/118 H 10/08/24 11:22 Blood Pressure Position Sitting 10/08/24 11:22 Pulse Oximetry 93 10/08/24 11:22 Oxygen Delivery Method Room Air 10/08/24 11:22 Oxygen Flow Rate 0 10/08/24 11:22 Pain Level 10 10/08/24 11:22 Medical Decision Making This dictation utilizes [id number] dictation software and may contain unedited grammatical errors. 44 year-old male presents to ED today by POV/ambulating with a chief complaint of nausea/vomiting with daily ETOH intake, known chronic leg infection secondary to history IVDU use, and some diarrhea and constipation with onset over the past 3-4 days. Quality described as generalized nausea, no intractable vomiting, endorses feve/chills,, denies URI symptoms, denies chest pain, has known chronic leg wound. Severity is described as moderate. Palliating factors include nothing specific attempted- still keeping ETOH down. Provoking factors include nothing specific. Patients' medical history: Pancreatitis, DVT, osteomyelitis, hepatitis B&C, alcohol withdrawal, polysubstance abuse, opioid use disorder. Family and social history: Current EtOH dependent, clinically sober at this time, denies illicit drug use. Pertinent exam findings / vital signs include multiple areas of diffuse erythema to L anterior calf with some central purulent hardened material, no lymphadenitis, benign CP exam, neuro intact, afebrile and nontoxic. Differential / pathologies of concern include cellulitis, gastroenteritis, pancreatitis, rhabdomyolysis, endocarditis, pneumonia. Diagnostic studies of: -CBC, CMP, CRP/ESR, lactate, magnesium, troponin, lipase, alcohol, ammonia, CK, COVID/flu/RSV PCR, XR chest. -CBC is benign with no leukocytosis -CMP has no actionable abnormality -Initial lactate 2.6, getting hydration -CRP negative, ESR upper limit of normal -Lipase slightly elevated -Troponin negative -CK negative -Ammonia negative -XR chest negative Interventions of: -Empiric Vanco/Ceftriaxone ordered for cellulitis. ED Course/Assessment/Plan: 44-year-old male complains of nausea and vomiting and inability to eat for 3 days, his daily intake of alcoholic drinks, has a chronic infected wound to the left calf, he chose to leave AGAINST MEDICAL ADVICE prior to workup being complete, his chest x-ray was negative, he had no actionable abnormalities on his laboratory workup, he did get a ride home as he stated his son was sick and he needs to take care of him, initial lactate of 2.6 but likely in the setting of type II lactic acidosis without any leukocytosis, counseled the patient that we would not be diagnosing any definitive illness in the feet left and any negative consequences including coma or occurred that he would be releasing a supply ability and he signed AMA paperwork I departed, I did have Keflex called in for him for cellulitis empiric treatment later. Findings not consistent with sepsis- likely type 2 lactic acidosis without leukocytosis, rhabdomyolysis, severe pancreatitis, osteomyelitis. Disposition of Cellulitis. Patient verbalized understanding of the plan and return to ED criteria and engaged in shared decision making. Medical Records Medical records reviewed: Yes I reviewed the patient's medical records. Imaging Data Radiologic Study: Attestation: I personally reviewed and interpreted this imaging study as follows: Imaging: X-Ray Radiologist's impression: EXAM: XR CHEST 2V PA LATERAL CLINICAL HISTORY: cough TECHNIQUE: 2D digital imaging was performed. Two views. COMPARISON: CR,XR XR CHEST 2V PA LATERAL from 03/03/2022 CR XR PORTABLE CHEST AP from 03/07/2022 CR XR CHEST 2V PA LATERAL from 07/09/2023 CR,XR XR PORTABLE CHEST AP from 07/14/2023 CR XR PORTABLE CHEST AP from 08/22/2023 FINDINGS: HEART: Normal size. Aorta: Not dilated. PULMONARY VASCULATURE: Normal. MEDIASTINUM: Unremarkable. LUNGS: Bilateral upper lobe scarring and volume loss. No visible infiltrate. PLEURAL SPACE: No pleural effusion or pneumothorax. BONE:Unremarkable for age. SOFT TISSUES: Unremarkable. IMPRESSION: No acute abnormality. Bilateral upper lobe scarring and volume loss. Lab Data Lab results reviewed: Yes I reviewed the patient's lab results. Labs: Laboratory Tests Range/Units 10/08/24 10/08/24 10/08/24 12:10 12:22 12:44 WBC (4.4-10.8) 10^3/uL 5.28 RBC (4.36-5.78) 10^6/uL 4.97 Hgb (13.5-17.5) g/dL 16.1 Hct (40.0-50.0) % 47.5 MCV (80-95) fL 96 H MCH (27.0-33.0) pg 32.4 MCHC (32.0-36.0) % 33.9 RDW (11.8-14.1) % 15.5 H Plt Count (130-400) 10^3/uL 348 MPV (8.0-11.0) fL 8.9 Immature Gran % % 0.2 Neutrophils % % 54.2 Lymphocytes % % 30.9 Monocytes % % 12.5 Eosinophils % % 1.3 Basophils % % 0.9 Nucleated RBC % (0.0-0.3) % 0.0 Absolute Neutrophils (1.2-6.7) 10^3/uL 2.86 Absolute Lymphocytes (1.2-3.4) 10^3/uL 1.63 Absolute Monocytes (0.1-0.8) 10^3/uL 0.66 Absolute Eosinophils (0.0-0.7) 10^3/uL 0.07 Absolute Basophils (0.0-0.2) 10^3/uL 0.05 ESR (0-15) mm/hr 28 H VBG Lactate (0.6-1.4) mmol/L 2.6 H* Sodium (136-145) mmol/L 138 Potassium (3.5-5.1) mmol/L 4.0 Chloride (98-107) mmol/L 102 Carbon Dioxide (21.0-32.0) mmol/L 26.7 Anion Gap (3-11) mmol/L 9.3 BUN (7-18) mg/dL 2 L Creatinine (0.70-1.30) mg/dL 1.0 Est GFR (CKD-EPI 2020) (mL/min/1.73m2) 94.59 Glucose (74-106) mg/dL 85 Calcium (8.5-10.1) mg/dL 8.8 Magnesium (1.8-2.4) mg/dL 2.0 Total Bilirubin (0.2-1.0) mg/dL 0.35 Conjugated Bilirubin (0.0-0.2) mg/dL 0.1 AST (15-37) U/L 55 H ALT (16-63) U/L 36 Alkaline Phosphatase (46-116) U/L 113 Ammonia (11-32) umol/L < 10 L Creatine Kinase (39-308) U/L 134 Troponin I (<or=76) ng/L 4 C-Reactive Protein (<or=0.5) mg/dL < 0.50 Total Protein (6.4-8.2) g/dL 8.3 H Albumin (3.4-5.0) g/dL 3.4 Lipase (<78) U/L 92 H Ethyl Alcohol (<10) mg/dL 113.9 H COVID-19 Source Nasopharynx SARS-CoV-2 (PCR) (Negative) Negative Influenza Type A (PCR) (Negative) Negative Influenza Type B (PCR) (Negative) Negative RSV (PCR) (Negative) Negative Quality:SDOH Health Related Social Needs: No Data to Display PFSH All Active Problems (Updated 10/10/24 @ 15:35 by SYL Grande) Cellulitis (Acute) Suicide ideation (Acute) Polysubstance abuse (Acute) Opioid use disorder (Acute) Nicotine dependence (Acute) Opioid dependence on agonist therapy (Acute) Alcohol dependence (Chronic) Medical History Pancreatitis DVT (deep venous thrombosis) History of osteomyelitis Hepatitis B Hepatitis C Depression Alcohol withdrawal Polysubstance abuse Family History Other Alcohol use disorder Depression Social History Smoking/Tobacco Use Status: Current every day Tobacco Type: cigarettes Smoking risk assessment performed?: Yes Alcohol Intake: current Alcohol Intake frequency: 3 or more drinks per day [place] type: hard liquor Drug use: Daily Substance use type: marijuana, crack/cocaine, heroin, opiates, painkillers, IV drugs, methamphetamine and prescription drug Details: Pt states he last used cocaine yesterday 10/07/24 Last used ETOH today 10/08/24 Housing: apartment Do you feel safe at home: Yes Do you feel safe in your relationship?: Yes PAWSS Have you Been Recently Intoxicated or Drunk Within the Last 30 days?: No Have you Ever Experienced Previous Episodes of Alcohol Withdrawal?: Yes Have you ever Experienced Withdrawal Seizures?: Yes Have you ever Experienced Delirium Tremens(DT)s?: No Have you ever undergone Alcohol Rehabilitation Treatment (i.e, inpt ot outpatient treatment programs)?: Yes Have you ever Experienced Blackouts?: No Have you ever Combined Alcohol with other Downers within the last 90 days?: No Have you ever Combined Alcohol with any other Substance of Abuse during the last 90 days?: Yes Positive Blood Alcohol level on Presentation? [PCS.BAL]: Unable to Obtain Evidence of Increased Autonomic Activity (i.e. HR>120, tremor, sweating, agitation, nausea)?: Yes Result: 6
[2024-10-08 12:33] LABS: Abs Immature Grans 0.01 10^3/uL (0.0-0.06); Absolute Basophil Count 0.05 10^3/uL (0.0-0.2); Absolute Eosinophil Count 0.07 10^3/uL (0.0-0.7); Absolute Lymphocyte Count 1.63 10^3/uL (1.2-3.4); Absolute Monocyte Count 0.66 10^3/uL (0.1-0.8); Absolute Neutrophil Count 2.86 10^3/uL (1.2-6.7); Basophils % 0.9 %; Eosinophils % 1.3 %; HCT 47.5 % (40.0-50.0); HGB 16.1 g/dL (13.5-17.5); Immature Grans % 0.2 %; Lymphocytes % 30.9 %; MCH 32.4 pg (27.0-33.0); MCHC 33.9 % (32.0-36.0); MCV 96 fL (80-95); MPV 8.9 fL (8.0-11.0); Monocytes % 12.5 %; Neutrophils % 54.2 %; Platelet Count 348 10^3/uL (130-400); RBC 4.97 10^6/uL (4.36-5.78); RDW 15.5 % (11.8-14.1); RDW-SD 55.2 fL; WBC 5.28 10^3/uL (4.4-10.8)
[2024-10-08 12:35] LABS: Lactate 2.6 mmol/L (0.6-1.4)
--- NOTE | 2024-10-08 12:36 | DI.RAD_ITS ---
Exam(s) XR CHEST 2V PA LATERAL EXAM: XR CHEST 2V PA LATERAL CLINICAL HISTORY: cough TECHNIQUE: 2D digital imaging was performed. Two views. COMPARISON: CR,XR XR CHEST 2V PA LATERAL from 03/03/2022 CR XR PORTABLE CHEST AP from 03/07/2022 CR XR CHEST 2V PA LATERAL from 07/09/2023 CR,XR XR PORTABLE CHEST AP from 07/14/2023 CR XR PORTABLE CHEST AP from 08/22/2023 FINDINGS: HEART: Normal size. Aorta: Not dilated. PULMONARY VASCULATURE: Normal. MEDIASTINUM: Unremarkable. LUNGS: Bilateral upper lobe scarring and volume loss. No visible infiltrate. PLEURAL SPACE: No pleural effusion or pneumothorax. BONE:Unremarkable for age. SOFT TISSUES: Unremarkable. IMPRESSION: No acute abnormality. Bilateral upper lobe scarring and volume loss. DATA REPOSITORY: RADIATION DOSE DELIVERED:
[2024-10-08 12:37] LABS: ESR 28 mm/hr (0-15)
[2024-10-08 12:51] VITALS: BP 180/118; PULSE 90; RESP 14; TEMP 36.6; O2SAT 93
[2024-10-08 12:53] LABS: COVID-19 PCR Negative (Negative); Influenza A PCR Negative (Negative); Influenza B PCR Negative (Negative); RSV PCR Negative (Negative)
[2024-10-08 12:54] LABS: Source Nasopharynx
[2024-10-08 12:59] LABS: ALT 36 U/L (16-63); AST 55 U/L (15-37); Albumin 3.4 g/dL (3.4-5.0); Alkaline Phosphatase 113 U/L (46-116); Anion Gap 9.3 mmol/L (3-11); Bilirubin, Direct 0.1 mg/dL (0.0-0.2); Bilirubin, Total 0.35 mg/dL (0.2-1.0); CO2 26.7 mmol/L (21.0-32.0); Calcium 8.8 mg/dL (8.5-10.1); Chloride 102 mmol/L (98-107); Creatine Kinase 134 U/L (39-308); ETHANOL BLOOD 113.9 mg/dL (<10); Estimated GFR 94.59 (mL/min/1.73m2); Glucose 85 mg/dL (74-106); Lipase 92 U/L (<78); Sodium 138 mmol/L (136-145); Total Protein 8.3 g/dL (6.4-8.2); Troponin I 4 ng/L (<or=76)
[2024-10-08 13:02] LABS: Ammonia < 10 umol/L (11-32)
[2024-10-08 13:04] LABS: BUN 2 mg/dL (7-18); C-Reactive Protein < 0.50 mg/dL (<or=0.5)
== END 2024-10-08 12:54 | disposition left against medical advice (07) ==
PROVIDERS: Emergency Provider Physician Assistant
DX: R11.2 Nausea with vomiting, unspecified (principal); R19.7 Diarrhea, unspecified; L03.116 Cellulitis of left lower limb; F19.10 Other psychoactive substance abuse, uncomplicated; F10.20 Alcohol dependence, uncomplicated; Z53.29 Procedure and treatment not carried out because of patient's decision for other reasons; F17.200 Nicotine dependence, unspecified, uncomplicated
CPT/HCPCS: 80048; 80076; 82550; 83690; 85652; 87040; 87637; 99283; 71046; 80320; 82140; 83605; 83735; 84484; 85025; 86140; 99284

== ENCOUNTER 2024-10-17 19:28 | Inpatient (IN) | payer MEDICAID, SELFPAY ==
[2024-10-17] VITALS (29 sets, daily range): BP systolic 186–236; BP diastolic 96–115; PULSE 48–96; RESP 6–26; TEMP 36.5–36.6; O2SAT 96–99
--- NOTE | 2024-10-17 19:30 | RT.EKG_ITS ---
APPROVED REPORT Exam: Resting ECG Reason for Exam: chest pain Patient Location: E HR:55 bpm ECG Measurements Heart Rate 55 AXIS MT 144 P 31 QRSd 89 QRS 14 QT 679 T 25 QTc 649 Conclusion Sinus bradycardia...rate< 60 Left ventricular hypertrophy...multiple voltage criteria ST elevation suggests acute pericarditis...ST >0.10mV, ant/lat/inf Prolonged QT interval...QTc >500mS No STEMI. Prolonged QTc.
--- NOTE | 2024-10-17 19:31 | W.ED.GENAD ---
Discharge Plan Disposition Patient Disposition: Admit to [facility] Discharge Details Clinical Impression: Pancreatitis Primary Care Provider: Unknown,Unknown ED Provider: Madan Doherty Home Meds and New Rx's Prescriptions: No Action methadone 10 mg/mL concentrate 100 mg PO DAILY Patient Comments: @ HUNTER, yissel last dose 03/30/24 for 100mg bupropion HCl 150 mg tablet extended release 24 hr 150 mg PO DAILY Patient Comments: TAKE ONE TABLET BY MOUTH EVERY DAY fluoxetine 20 mg capsule 20 mg PO DAILY Patient Comments: TAKE ONE CAPSULE BY MOUTH EVERY DAY aripiprazole 10 mg tablet 10 mg PO DAILY Patient Comments: TAKE ONE TABLET BY MOUTH AT BEDTIME hydroxyzine pamoate 50 mg capsule 50 mg PO .q6 h PRN Patient Comments: TAKE ONE CAPSULE BY MOUTH EVERY 6 HOURS NEEDED omeprazole 20 mg capsule,delayed release(DR/EC) 20 mg PO DAILY Patient Comments: TAKE ONE CAPSULE BY MOUTH EVERY DAY gabapentin 300 mg capsule 300 mg PO TID Patient Comments: TAKE ONE CAPSULE BY MOUTH THREE TIMES A DAY DIRECTED HPI General Date/Time Provider Initiated Documentation: 10/17/24 19:30. HPI Narrative: MDM This is an uncomfortable appearing afebrile and not tachycardic 44-year-old male with chest pain vomiting concerning for possibility of esophageal rupture for which he will undergo CT chest abdomen pelvis. Will score on a CIWA protocol. No trauma to suggest increased risk for pneumothorax. No rash to chest to suggest zoster. No fevers to suggest pneumothorax. ECG is nonischemic however will obtain troponin testing to assess for ACS. Not hypotensive to suggest tamponade. No pain out of proportion to suggest necrotizing soft tissue infection. Patient reports he has not used IV drugs in several years. My suspicion is relatively low for endocarditis. I considered sepsis however the patient is normothermic and not tachycardic. Did not draw blood cultures nor treat empirically with IV antibiotics. Patient's marked elevated blood pressure could be secondary to pain. No specific right upper quadrant tenderness to suggest acute cholecystitis. 8:40 PM Patient was nauseous and given his prolonged QT on ECG I treated him with diazepam and scopolamine patch. He was found to have pancreatitis based on elevated lipase level. No signs of rhabdomyolysis. Reassuring LFTs. 11:43 PM Patient persistent nausea for which I treated with ondansetron. I was in touch with Dr. Elena who agreed graciously discussed the patient for hospitalization. CT scan did not reveal pancreatic pseudocyst. No signs of Boerhaave's. Patient was scoring less than 4 on his CIWA protocol. HPI The patient presents for evaluation of chest pain. He began experiencing severe chest pain yesterday morning while in bed, accompanied by significant nausea. He has been vomiting profusely since then, but there is no presence of blood in the vomit or any black or bloody stools. He reports no previous history of similar symptoms or any known cardiac issues, including myocardial infarction. He also reports no febrile episodes. He has a daily alcohol consumption of 12 packs and has not required intubation nor hospitalization for detoxification. His last alcohol intake was yesterday. He has no history of pancreatitis. He reports mild dysuria but no chest rash. He denies hematemesis, melena, or fever. He has discontinued his medications, which included Prozac, BuSpar, hydroxyzine, and Wellbutrin. Exam General: Well-appearing in no acute distress speaking in complete sentences. Head: Normocephalic, atraumatic. Eye: Extraocular eye movements intact. No conjunctival injection. No scleral icterus. Ear, nose, mouth, throat: Grossly normal inspection. Normal voice, handling secretions normally. Neck: Trachea midline. Cardiovascular: Well-perfused distal extremities. Regular rhythm Respiratory: Nonlabored respiration. Clear lungs Gastrointestinal: Nondistended abdomen. Epigastric tenderness. No rebound. No guarding. Musculoskeletal: No edema. Moving all 4 extremities spontaneously. Skin: Normal for age and race, grossly normal temperature and turgor. No acute rash. Neurologic: Alert and appropriate, no apparent acute deficits. Psychiatric: Mood and manner are appropriate. Grooming and personal hygiene are appropriate. Related Data Home Medications ?Medication ?Instructions ?Recorded ?Confirmed methadone 10 mg/mL oral concentrate 100 mg PO DAILY 10/10/23 10/17/24 aripiprazole 10 mg tablet 10 mg PO DAILY 10/08/24 10/17/24 bupropion HCl 150 mg 24 hr tablet, 150 mg PO DAILY 10/08/24 10/17/24 extended release fluoxetine 20 mg capsule 20 mg PO DAILY 10/08/24 10/17/24 gabapentin 300 mg capsule 300 mg PO TID 10/08/24 10/17/24 hydroxyzine pamoate 50 mg capsule 50 mg PO .q6 h PRN 10/08/24 10/17/24 omeprazole 20 mg capsule,delayed 20 mg PO DAILY 10/08/24 10/17/24 release Allergies Allergy/AdvReac Type Severity Reaction Status Date / Time No Known Allergies Allergy Verified 10/17/24 21:44 General RAVEN: 3 Medical Decision Making Quality:SDOH Health Related Social Needs: No Data to Display PFSH All Active Problems (Updated 10/17/24 @ 21:39 by Leon Colindres) Pancreatitis (Acute) Cellulitis (Acute) Suicide ideation (Acute) Polysubstance abuse (Chronic) Opioid use disorder (Acute) Nicotine dependence (Acute) Opioid dependence on agonist therapy (Acute) Alcohol dependence (Chronic) Medical History Pancreatitis DVT (deep venous thrombosis) History of osteomyelitis Hepatitis B Hepatitis C Depression Alcohol withdrawal Polysubstance abuse Family History Other Alcohol use disorder Depression Social History Smoking/Tobacco Use Status: Current every day Tobacco Type: cigarettes Smoking risk assessment performed?: Yes Alcohol Intake: current Alcohol Intake frequency: 3 or more drinks per day Alcohol type: hard liquor Drug use: Daily Substance use type: marijuana, crack/cocaine, heroin, opiates, painkillers, IV drugs, methamphetamine and prescription drug Details: Pt states he last used cocaine yesterday 10/07/24 Last used ETOH today 10/08/24 Housing: apartment Do you feel safe at home: Yes Do you feel safe in your relationship?: Yes
--- NOTE | 2024-10-17 20:00 | DI.CT_ITS ---
Exam(s) CT CHEST/ABD/PEL W EXAM: CT CHEST/ABD/PEL W CLINICAL HISTORY: chest pain TECHNIQUE: Imaging Protocol: Axial computed tomography images with coronal and sagittal reformatted images were created and reviewed. Lung Computer Aided Detection (CAD) was utilized. CONTRAST MATERIAL: Intravenous: Omnipaque 350 contrast volume:100 mL Oral: No COMPARISON: CT CT CHEST W from 08/13/[address] ABDOMEN PELVIS WO from 06/20/2022 FINDINGS: CHEST: Tracheobronchial tree: Patent where visualized. There is again seen scarring in the medial aspect of the left upper lobe with associated bronchiectasis. There is also again seen scarring in the right u pper lobe with associated bronchiectasis. Pulmonary parenchyma: No consolidation or dominant measurable mass. Atelectatic changes are seen in t he lung bases. Visualized thyroid gland: Unremarkable. Mediastinum and Debby: No dominant adenopathy or fluid collection. The esophagus is unremarkable. Pleura: No effusion or pneumothorax. Heart: The heart is not dilated. No coronary artery calcifications are seen. No pericardial effusion. Pulmonary arteries: Due to the timing of the bolus, peripheral pulmonary artery opacification is subo ptimal for evaluation of pulmonary emboli. No large central pulmonary embolism is present. Aorta: Thoracic aorta non-dilated. Atherosclerotic calcification is present. No evidence of dissecti on. Lymph nodes: Within normal limits. Soft tissues: Unremarkable. Bones:Within normal limits for the patient's age. ABDOMEN: Liver: Normal density. No measurable mass. Portal, Superior Mesenteric, and Splenic Veins: Unremarkable. Gallbladder and Biliary Tract: No radiodense calculus or dilation. Pancreas: There is inflammatory stranding seen around the head of the pancreas and the adjacent duode num. No focal fluid collection is seen to suggest an abscess or pseudocyst. The findings are suspic ious for acute pancreatitis. Spleen: Normal. Adrenals: No masses seen. Kidneys: Normal size, contour and axis. No radiodense stones or obstructive uropathy. No masses seen. Abdominal Aorta: Abdominal portion non-dilated. Atherosclerotic calcification is present. Bowel: There is mild wall thickening seen in the proximal duodenum. The remainder of the bowel shows no evidence of wall thickening or obstruction. There is no evidence of appendicitis. Peritoneal Cavity: No ascites, collection or mesenteric inflammatory response. No free air. Lymph Nodes: Within normal limits. Bones: Within normal limits for the patient's age. Soft Tissues: Unremarkable. PELVIS: Bladder: Symmetric distention, no gross wall thickening. Reproductive Organs: Unremarkable as visualized. Lymph Nodes: Within normal limits. Bones: Within normal limits. IMPRESSION: 1. Findings most suggestive of acute pancreatitis. No abscess or pseudocyst. 2. Stable scarring and atelectasis in the lungs. No acute pulmonary process. 3. Mild thickening of the wall of the proximal duodenum adjacent to the inflamed pancreas suggestive of duodenitis. RADIATION DOSE DELIVERED: 495.68mGy.cm Total DLP DATA REPOSITORY: All CT scans at this facility are submitted to the National Radiology Data Registry (NRDR) Dose Index Registry (DIR) with the [employer] ([employer]). RADIATION OPTIMIZATION: All CT scans at this facility use at least one of these dose optimization te chniques: automated exposure control; mA and/or kV adjustment per patient size (includes targeted exa ms where dose is matched to clinical indication); or iterative reconstruction.
[2024-10-17 20:04] LABS: Abs Immature Grans 0.04 10^3/uL (0.0-0.06); Absolute Basophil Count 0.03 10^3/uL (0.0-0.2); Absolute Eosinophil Count 0.02 10^3/uL (0.0-0.7); Absolute Lymphocyte Count 0.75 10^3/uL (1.2-3.4); Absolute Neutrophil Count 9.95 10^3/uL (1.2-6.7); Basophils % 0.3 %; Eosinophils % 0.2 %; HGB 16.1 g/dL (13.5-17.5); Immature Grans % 0.4 %; Lymphocytes % 6.6 %; MCH 31.6 pg (27.0-33.0); MCHC 34.3 % (32.0-36.0); MCV 92 fL (80-95); MPV 8.7 fL (8.0-11.0); Monocytes % 4.4 %; Neutrophils % 88.1 %; Platelet Count 245 10^3/uL (130-400); RBC 5.09 10^6/uL (4.36-5.78); RDW 14.6 % (11.8-14.1); RDW-SD 50.4 fL; WBC 11.29 10^3/uL (4.4-10.8)
[2024-10-17] MEDS: ACETAMINOPHEN 1,000 MG/100 ML BAG 400 MG IVPB (20:10)
[2024-10-17] MEDS: diazePAM 10 MG/2 ML SYR 2 MG IVP ×2 (20:28→21:35)
[2024-10-17] MEDS: Scopolamine 1 MG/3 DAYS PATCH TD (20:28)
[2024-10-17 20:29] LABS: ALT 22 U/L (16-63); AST 41 U/L (15-37); Albumin 3.6 g/dL (3.4-5.0); Alkaline Phosphatase 104 U/L (46-116); Anion Gap 6.7 mmol/L (3-11); BUN 5 mg/dL (7-18); Bilirubin, Total 0.85 mg/dL (0.2-1.0); CO2 30.3 mmol/L (21.0-32.0); Chloride 98 mmol/L (98-107); Creatine Kinase 69 U/L (39-308); Estimated GFR 94.59 (mL/min/1.73m2); Glucose 149 mg/dL (74-106); Lipase 394 U/L (<78); Sodium 135 mmol/L (136-145); Total Protein 8.2 g/dL (6.4-8.2); Troponin I 5 ng/L (<or=76)
[2024-10-17] MEDS: Omnipaque 350 MG/ML 100 ML BTL IJ (20:37)
[2024-10-17 20:38] LABS: Calcium 9.3 mg/dL (8.5-10.1); ETHANOL BLOOD < 3.0 mg/dL (<10)
[2024-10-17] MEDS: Normal Saline - Diluent 50 ML VIAL IJ (20:38)
[2024-10-17 21:19] LABS: Troponin I 6 ng/L (<or=76)
--- NOTE | 2024-10-17 21:35 | HPE_ITS ---
Date of service: 10/17/24 Time of Service: 21:35 Assessment and Plan Assessment and plan (1) Pancreatitis: Start date: 10/17/24 Status: Acute Assessment and plan: This is a 44-year-old gentleman who drinks alcohol frequently having his last drink 1 day prior to admission. He was having abdominal pain with nausea and vomiting for 1 day when he presented to the ED and his alcohol level was negative. He will be placed on bowel rest and IV hydration with continuation of his usual methadone and treatment of his nausea watching for worsening cardiac dysrhythmias with QT prolongation. He has not taken his antidepressants but is on methadone. Troponins were negative. Lipase was 3 times above normal with a history of alcoholic pancreatitis in the past. Imaging did not reveal any signs of abscessing or infection with probable secondary acute duodenitis contributing to the patient's symptoms. Patient is a full code. (2) Hypomagnesemia: Start date: 10/17/24 Status: Acute Assessment and plan: On monitoring manager the patient does have sinus bradycardia though he is hypertensive with his alcohol withdrawal and pain. He is having frequent PVCs with short run of possible V. tach with wide QRS complexes. His magnesium level is just below normal and 2 g of magnesium sulfate to be given IV. We will monitor his dysrhythmia with no history of cardiac disease. If he continues to have dysrhythmias despite IV hydration and treatment of his alcohol withdrawal as well as repletion of his magnesium, further evaluation should be considered. (3) Cellulitis: Start date: 10/17/24 Status: Acute Assessment and plan: Patient has chronic skin breakdown over his left lateral ankle which has a dry scabbed over ulcers and surrounding erythema and increased warmth. He has also local edema. He was seen for this problem about a week ago but did never took his antibiotic. Will place him on IV Ancef while hospitalized. (4) Polysubstance abuse: Status: Chronic Assessment and plan: Patient does have polysubstance abuse and is on methadone chronically. This medication will be confirmed with [facility] in the morning before dosing. We will avoid narcotics for his pain the patient not appearing to require additional narcotics at this time. He will be on alcohol withdrawal protocol with CIWA monitoring using phenobarbital which may also help with his abdominal symptoms. Urine drug screen will be performed with xylazine and Suboxone send outs. (5) Alcohol dependence: Status: Chronic Assessment and plan: Patient has had severe withdrawal in the past and was placed on alcohol withdrawal protocol using phenobarbital with loading dose and as needed phenobarbital. (6) Depression: Assessment and plan: Patient has not been taking any of his antidepressants and these will not be reinitiated during this hospital stay. Long-term he has a follow-up with psychiatry for his substance abuse issues and probable self treatment with mood disorder though this is not appearing to be active. He did have a previous history of suicidal ideation. (7) HTN (hypertension): Status: Chronic Assessment and plan: Patient appears to have had high blood pressure in the past with alcohol withdrawal and with his bradycardia and cardiac dysrhythmia we will consider treating cautiously if he is not responding to alcohol withdrawal treatment using phenobarbital. He has not taken antihypertensive chronically. He has had normal blood pressures in the past when not in pain. Follow-up and compliance with medical therapy may be a problem with the patient most likely to continue alcohol use. History of Present Illness History of Present Illness Chief Complaint: Severe chest and epigastric pain 1 day prior to admission. Narrative: This is a 44-year-old male patient who is a chronic alcoholic and polysubstance abuser with opioid abuse syndrome on methadone as well as depression with multiple ant psychiatric medicines on his medication list which he is not taking. He was drinking alcohol and had his last drink 1 day prior to admission at the onset of his abdominal symptoms. He has had no hematemesis and no bloody stools though he was vomiting profusely. Was drinking beer up to this illness. He has had a history of alcohol induced pancreatitis as well as alcohol withdrawal. He has been noncompliant with care and medical therapy with left ankle cellulitis being diagnosed and treated about a week prior to admission and the patient never took antibiotics. He denies any fever or chills. In the ED he was hypertensive and tachycardic with QT prolongation. He was given antiemetics and IV hydration I will be admitted for acute pancreatitis with need for bowel rest as well as monitoring manager with his QT prolongation using antiemetics. His troponins were negative. His EKG did not show any acute ischemic changes. Once he was brought to the ICU did have increased PVCs and short runs of what appeared to be V. tach. Patient magnesium was checked and slightly low with IV magnesium repletion given. He will continue cardiac monitoring. There are no signs of infections and antibiotics were not initiated for his pancreatitis but he did have cellulitis of his left ankle which was not treated and because of inability to take oral therapy predictably, he will be started on Ancef IV. He is a full code. Review of Systems Narrative: 13 point review of systems otherwise unrevealing or stable. Patient engages with minimal conversation. PFSH All Active Problems (Updated 10/18/24 @ 06:14 by Leon Colindres) HTN (hypertension) (Chronic) Hypomagnesemia (Acute) Pancreatitis (Acute) Cellulitis (Acute) Suicide ideation (Acute) Polysubstance abuse (Chronic) Opioid use disorder (Acute) Nicotine dependence (Acute) Opioid dependence on agonist therapy (Acute) Alcohol dependence (Chronic) Medical History Pancreatitis DVT (deep venous thrombosis) History of osteomyelitis Hepatitis B Hepatitis C Depression Alcohol withdrawal Polysubstance abuse Family History Other Alcohol use disorder Depression Social History Smoking/Tobacco Use Status: Current every day Tobacco Type: cigarettes Smoking risk assessment performed?: Yes Alcohol Intake: current Alcohol Intake frequency: 3 or more drinks per day Alcohol type: hard liquor Drug use: Daily Substance use type: marijuana, crack/cocaine, heroin, opiates, painkillers, IV drugs, methamphetamine and prescription drug Details: Pt states he last used cocaine yesterday 10/07/24 Last used ETOH today 10/08/24 Housing: apartment Do you feel safe at home: Yes Do you feel safe in your relationship?: Yes Meds Allergies and Home Medications Allergies Allergy/AdvReac Type Severity Reaction Status Date / Time No Known Allergies Allergy Verified 10/17/24 21:44 Home Medications ?Medication ?Instructions ?Recorded ?Confirmed ?Type methadone 10 mg/mL oral concentrate 100 mg PO DAILY 10/10/23 10/17/24 History aripiprazole 10 mg tablet 10 mg PO DAILY 10/08/24 10/17/24 History bupropion HCl 150 mg 24 hr tablet, 150 mg PO DAILY 10/08/24 10/17/24 History extended release fluoxetine 20 mg capsule 20 mg PO DAILY 10/08/24 10/17/24 History gabapentin 300 mg capsule 300 mg PO TID 10/08/24 10/17/24 History hydroxyzine pamoate 50 mg capsule 50 mg PO .q6 h PRN 10/08/24 10/17/24 History omeprazole 20 mg capsule,delayed 20 mg PO DAILY 10/08/24 10/17/24 History release Exam Narrative Exam Narrative: General: Patient appears appropriate for age, moderate distress from his epigastric discomfort and nausea. He is alert and oriented x 3. HEENT: Normocephalic, eyes with pupils equal and react to light symmetrically, extraocular movement intact with sclera anicteric. Oropharynx with dry mucosa and poor dentition. Neck: Supple without JVD. Back: Stooped posture without CVA tenderness. Lungs: Fair aeration and clear to auscultation and percussion. Heart: Bradycardic rate with extrasystoles and irregular rhythm during exam. No murmur or gallop. secured entrance monitor did show frequent PVCs and treatment of wide- complex QRSs with possible V. tach. Abdomen: Obese contour, slightly protuberant and tender with guarding over epigastrium especially. No palpable hepatosplenomegaly with exam complicated by guarding. Bowel sounds are hypoactive but present all quadrants. Genitalia/rectal: Exam deferred. Skin: Normal color, warm and dry. Extremities: Without clubbing, cyanosis or grossly pitting edema though there is some edema over left ankle with chronic skin changes and dry ulcers over the lateral aspect with increased warmth to touch and erythema over the same area. There appears to be some chronic nonpitting edema both legs. Fair capillary refill. Neuro: Cranial nerves II through XII gross intact, no focalized motor deficits or tremor. Psych: Flattened affect and poor eye contact with depressed mood. Patient speaks minimally. Speech is slow monotonous in tone. No abnormal thought processes. Remote and recent memory appear to be grossly intact. Results Labs 10/17/24 19:58 10/17/24 19:58 Labs: Laboratory Results - last 24 hr 10/17/24 10/17/24 10/17/24 19:58 20:56 22:49 WBC 11.29 H RBC 5.09 Hgb 16.1 Hct 47.0 MCV 92 MCH 31.6 MCHC 34.3 RDW 14.6 H Plt Count 245 MPV 8.7 Immature Gran % 0.4 Neutrophils % 88.1 Lymphocytes % 6.6 Monocytes % 4.4 Eosinophils % 0.2 Basophils % 0.3 Nucleated RBC % 0.0 Absolute Neutrophils 9.95 H Absolute Lymphocytes 0.75 L Absolute Monocytes 0.50 Absolute Eosinophils 0.02 Absolute Basophils 0.03 Sodium 135 L Potassium 4.0 Chloride 98 Carbon Dioxide 30.3 Anion Gap 6.7 BUN 5 L Creatinine 1.0 Est GFR (CKD-EPI 2020) 94.59 Glucose 149 H Calcium 9.3 Total Bilirubin 0.85 AST 41 H ALT 22 Alkaline Phosphatase 104 Creatine Kinase 69 Troponin I 5 6 Cancelled Total Protein 8.2 Albumin 3.6 Lipase 394 H Ethyl Alcohol < 3.0 Last Vital Signs Temp 36.5 C 10/17/24 19:32 Pulse 51 L 10/17/24 20:57 Resp 26 H 10/17/24 20:57 BP 236/106 H 10/17/24 20:57 Pulse Ox 98 10/17/24 20:57 Time Spent Time spent with Patient: >75 minutes Time was spent: preparing to see the patient(eg.review tests), obtaining and/or reviewing separately otained hiistory, ordering medications,tests, procedures, indepentently interpreting results and care coordination
--- NOTE | 2024-10-17 22:03 | DI.VRAD_ITS ---
PROCEDURE INFORMATION: Exam: CT Chest With Contrast; Diagnostic Exam date and time: 10/17/2024 8:34 PM Age: 44 years old Clinical indication: Abdominal pain; Patient HX: Abd and chest pain TECHNIQUE: Imaging protocol: Diagnostic computed tomography of the chest with contrast. 3D rendering (Not supervised by radiologist): MIP and/or 3D reconstructed images were created by the technologist. Radiation optimization: All CT scans at this facility use at least one of these dose optimization techniques: automated exposure control; mA and/or kV adjustment per patient size (includes targeted exams where dose is matched to clinical indication); or iterative reconstruction. Contrast material: OMNIPAQUE 350; Contrast volume: 100 ml; Contrast route: INTRAVENOUS (IV); COMPARISON: CT CHEST W 08/13/2021 11:33 AM FINDINGS: Lungs: Symmetrically distributed hazy opacities in the anterior mid lung zones. Atelectasis suspected primarily given imaging at relatively low lung volumes and relative symmetry. No region of comfort pulmonary consolidation. Dependent atelectasis at the right base. Pleural spaces: No pleural effusion or pneumothorax. Heart: Enlarged heart with multichamber dilatation. Lymph nodes: Scattered small mediastinal lymph nodes, nonspecific. Vasculature: No thoracic aortic aneurysm or dissection. Exam not tailored to evaluate the pulmonary arterial vasculature. Within the limits of the exam, no large central pulmonary embolism demonstrated in the pulmonary trunk or main pulmonary arteries. Bones/joints: No acute fracture seen among the bones of the chest. Soft tissues: No gross soft tissue mass or fluid collection seen in the chest wall. IMPRESSION: No active disease is seen in the chest. PROCEDURE INFORMATION: Exam: CT Abdomen And Pelvis With Contrast Exam date and time: 10/17/2024 8:34 PM Age: 44 years old Clinical indication: Abdominal pain; Patient HX: Abd and chest pain TECHNIQUE: Imaging protocol: Computed tomography of the abdomen and pelvis with contrast. 3D rendering (Not supervised by radiologist): MIP and/or 3D reconstructed images were created by the technologist. Radiation optimization: All CT scans at this facility use at least one of these dose optimization techniques: automated exposure control; mA and/or kV adjustment per patient size (includes targeted exams where dose is matched to clinical indication); or iterative reconstruction. Contrast material: OMNIPAQUE 350; Contrast volume: 100 ml; Contrast route: INTRAVENOUS (IV); COMPARISON: CT ABDOMEN PELVIS WO 06/20/2022 1:14 AM FINDINGS: Liver: Normal appearing liver. Gallbladder and biliary ducts: Gallbladder partially collapsed. No calcified gallstones seen. No biliary dilatation. Pancreas: Hazy fat stranding surrounding the pancreatic head Spleen: Normal appearing spleen. Adrenal glands: Normal appearing adrenal glands. Kidneys and ureters: Normal appearing kidneys. No hydronephrosis. Stomach and bowel: No oral contrast. Stomach partially decompressed. Hazy fat stranding and fluid surrounding the proximal duodenum. No small bowel dilatation to suggest obstruction. Colon largely well evacuated of fecal material. No evidence of diverticulitis or colitis. Appendix: Normal appendix, partially obscured. Intraperitoneal space: No gross ascites or free air. Vasculature: Normal caliber abdominal aorta. Lymph nodes: No pathologically enlarged mesenteric, retroperitoneal, or pelvic sidewall lymph nodes. Urinary bladder: Normal appearing urinary bladder. Reproductive: Normal-appearing prostate gland and seminal vesicles. Bones/joints: No acute fracture seen among the bones of the abdomen or pelvis. Spinal degenerative change with discogenic degeneration at multiple levels. Soft tissues: No significant ventral or inguinal hernia. IMPRESSION: 1. Acute pancreatitis. 2. Probable secondary acute duodenitis. Dictated and Authenticated by: Jose Mitchell MD. Ordering:ELLIE Hager MD
[2024-10-17] MEDS: Ondansetron 4 MG/2 ML VIAL IVP (23:34)
[2024-10-17 23:42] LABS: Source Nasal/Nares
[2024-10-18] VITALS (107 sets, daily range): BP systolic 170–208; BP diastolic 87–116; PULSE 51–90; RESP 11–30; TEMP 37.7; O2SAT 93–99
[2024-10-18 00:12] LABS: COVID-19 PCR Negative (Negative)
[2024-10-18 00:26] LABS: Magnesium 1.7 mg/dL (1.8-2.4)
[2024-10-18] MEDS: Normal Saline 1,000 ML 125 ML IV ×3 (00:53→20:29)
[2024-10-18] MEDS: Pantoprazole 40 MG VIAL IVP ×2 (01:00→08:34)
[2024-10-18] MEDS: Normal Saline Flush 10 ML SYR IVP ×13 (01:03→23:55)
[2024-10-18] MEDS: ceFAZolin 2 GM/50 ML BAG IVPB ×4 (01:35→23:55)
[2024-10-18] MEDS: Enoxaparin 40 MG/0.4 ML SYR SC ×2 (01:41→22:05)
[2024-10-18] MEDS: MAGNESIUM SULFATE 2 GM/50 ML BAG IV_INF (01:48)
[2024-10-18] MEDS: PHENobarbital 140 MG in Normal Saline 50 ML 100 MG IVPB ×2 (03:49→06:31)
[2024-10-18] MEDS: ACETAMINOPHEN 1,000 MG/100 ML BAG 400 MG IVPB ×3 (07:58→20:28)
--- NOTE | 2024-10-18 08:31 | INITIAL_ITS ---
Date of service: 10/18/24 Time of Service: 08:31 Care Management Initial Assmt Initial Assessment Reason for Hospitalization: Pancreatitis Functional Status/Living Situation Patient Presentation: William was lying in bed when CM met with him. He was moaning and holding his abdomen, stating he was in a lot of pain. He has only had IV Tylenol ordered for pain and he stated it does not help. Today the provider ordered hydromorphone as well for pain control. William also receives Methadone 100mg/day and has received IV phenobarbital and Ativan over the past 24 hours. His CIWA scores today have been between 6 and 11. He received another 3 doses of phenobarbital this afternoon at 15:40, 16:20 and 17:14. William declined to continue to converse with CM. Town of Residence: [place] Resides with: Other (girlfriend Ross) Significant Other/Family: [facility] Employment Status: Unemployed Instrumental Activities of Daily Living (ADLs): Independent Medications Medication Management: No Issues/Barriers identified Advance Directives Advance Directives: Do you have an Advance Directive: N 12/07/15 14:45 AD On File at [facility]: N 02/01/13 20:37 Date Asked 10/17/24 10/17/24 19:34 AD Date Reviewed COLST On File at [facility] COLST Date Scanned Code Status Resuscitation Status Full Code Insurance Coverage/Financial Issues Insurance: Medicaid Care Team Visit Care Team Role Provider Type Unknown Unknown Primary Care Provider STAFF PHYSICIAN Madan Doherty MD Emergency Provider [facility] STAFF PHYSICIAN Leon Colindres Admit Provider NON-[facility] STAFF PHYSICIAN Attending Provider Discharge Potential Discharge Needs: PCP F/U Appt Anticipated Barriers to Discharge: None Identified Patient/Family Education Needs: Review discharge instructions, discuss Ask Me Three Transportation: [facility] Plan: Anticipate William will be discharged back home with no new services when medically stable. He will follow up with his PCP and plan of care and transport via RCT. CM will follow and continue to assess for discharge needs. Social Determinants of Health Screening Will the Patient Participate in the Screening?: Declined to provide PFSH All Active Problems (Updated 10/18/24 @ 06:14 by Leon Colindres) HTN (hypertension) (Chronic) Hypomagnesemia (Acute) Pancreatitis (Acute) Cellulitis (Acute) Suicide ideation (Acute) Polysubstance abuse (Chronic) Opioid use disorder (Acute) Nicotine dependence (Acute) Opioid dependence on agonist therapy (Acute) Alcohol dependence (Chronic) Medical History Pancreatitis DVT (deep venous thrombosis) History of osteomyelitis Hepatitis B Hepatitis C Depression Alcohol withdrawal Polysubstance abuse Family History Other Alcohol use disorder Depression Social History Smoking/Tobacco Use Status: Current every day Tobacco Type: cigarettes Smoking risk assessment performed?: Yes Alcohol Intake: current Alcohol Intake frequency: 3 or more drinks per day Alcohol type: hard liquor Drug use: Daily Substance use type: marijuana, crack/cocaine, heroin, opiates, painkillers, IV drugs, methamphetamine and prescription drug Details: Pt states he last used cocaine yesterday 10/07/24 Last used ETOH today 10/08/24 Housing: apartment Do you feel safe at home: Yes Do you feel safe in your relationship?: Yes
[2024-10-18] MEDS: MULTIVITAMIN 10 ML, THIAMINE 100 MG, FOLIC ACID 1 MG in DEXTROSE 5%-0.45% SALINE 1,000 ML 42 ML IV (08:35)
[2024-10-18] MEDS: Methadone Liquid 10 MG/ML 100 MG PO (08:36)
[2024-10-18 10:56] LABS: Abs Immature Grans 0.11 10^3/uL (0.0-0.06); Absolute Basophil Count 0.03 10^3/uL (0.0-0.2); Absolute Eosinophil Count 0.05 10^3/uL (0.0-0.7); Absolute Lymphocyte Count 0.85 10^3/uL (1.2-3.4); Absolute Monocyte Count 1.12 10^3/uL (0.1-0.8); Absolute Neutrophil Count 14.58 10^3/uL (1.2-6.7); Basophils % 0.2 %; Eosinophils % 0.3 %; HCT 47.5 % (40.0-50.0); HGB 16.4 g/dL (13.5-17.5); Immature Grans % 0.7 %; Lymphocytes % 5.1 %; MCH 31.7 pg (27.0-33.0); MCHC 34.5 % (32.0-36.0); MCV 92 fL (80-95); MPV 9.2 fL (8.0-11.0); Monocytes % 6.7 %; Platelet Count 247 10^3/uL (130-400); RBC 5.18 10^6/uL (4.36-5.78); RDW 14.7 % (11.8-14.1); WBC 16.76 10^3/uL (4.4-10.8)
[2024-10-18 11:18] LABS: *AMPHETAMINES SCREEN URINE Negative (Negative); *BARBITURATES SCREEN URINE Positive (Negative); *BENZODIAZEPINES SCREEN URINE Negative (Negative); Cannabinoids THC Positive (Negative); Cocaine Screen,Urine Positive (Negative); METHADONE URINE SCREEN Positive (Negative); OPIATES URINE SCREEN Negative (Negative)
[2024-10-18 11:19] LABS: Tricyclic Antidepressants Negative (Negative)
--- NOTE | 2024-10-18 11:21 | W.NUTRFU ---
Date of service: 10/18/24 Time of Service: 11:21 Nutrition Note NOTE: 44yo male pt being treated for pancreatitis - currently npo. Hx of polysub abuse/etoh dependence - ordered appropriately for IV MVI/mineral with B1, B9. nutrition labs: sodium 135 yesterday, fasting glucose 149 yesterday, mag 1.7 yesterday (given repletion). Total protein and albumin wnl yesterday Lipase 394 yesterday Pt weight stable over the last year. no nutrition intervention planned at this time outside what patient is currently ordered for. Will monitor for diet advancement/toleration. Time Spent in Nutritional Counseling and Treatment: 0
[2024-10-18 12:11] LABS: Prothrombin Time 10.5 sec (9.1-11.1)
[2024-10-18 12:15] LABS: ALT 19 U/L (16-63); AST 25 U/L (15-37); Albumin 3.2 g/dL (3.4-5.0); Alkaline Phosphatase 94 U/L (46-116); Anion Gap 3.9 mmol/L (3-11); BUN 6 mg/dL (7-18); Bilirubin, Direct 0.2 mg/dL (0.0-0.2); CO2 31.1 mmol/L (21.0-32.0); CREATININE 0.9 mg/dL (0.70-1.30); Calcium 8.8 mg/dL (8.5-10.1); Chloride 99 mmol/L (98-107); Estimated GFR 107.33 (mL/min/1.73m2); Glucose 108 mg/dL (74-106); PHOSPHORUS 3.8 mg/dL (2.6-4.7); Potassium 3.9 mmol/L (3.5-5.1); Sodium 134 mmol/L (136-145); Total Protein 7.8 g/dL (6.4-8.2)
--- NOTE | 2024-10-18 12:54 | PGE_ITS ---
Date of Service Date of service: 10/18/24 Time of Service: 12:55 Assessment and Plan Assessment and plan (1) Pancreatitis: Start date: 10/17/24 Status: Acute Assessment and plan: -Patient presented with nausea vomiting abdominal pain in the setting of alcohol consumption found to be acute pancreatitis -Patient unable to tolerate p.o. intake, remains n.p.o. and on IV fluids -Lipase 394 on admission (2) Alcohol dependence: Status: Chronic Assessment and plan: Patient has had severe withdrawal in the past and was placed on alcohol withdrawal protocol using phenobarbital with loading dose and as needed phenobarbital. (3) Hypomagnesemia: Start date: 10/17/24 Status: Acute Assessment and plan: -On monitoring engineer the patient does have sinus bradycardia though he is hypertensive with his alcohol withdrawal and pain. -Patient also having frequent PVCs and nonsustained short runs of V. tach -Magnesium was low on admission patient was given 2 g of IV mag -Patient has not had any additional signs of ventricular arrhythmia since about 5 AM on the morning of 10/18/2024 -Will continue to monitor give additional IV mag as needed (4) Cellulitis: Start date: 10/17/24 Status: Acute Assessment and plan: -Patient has chronic skin breakdown over his left lateral ankle which has a dry scabbed over ulcers and surrounding erythema and increased warmth as well as local edema -Was apparently seen last week placed on p.o. antibiotic, was started on Ancef on admission, will continue (5) Polysubstance abuse: Status: Chronic Assessment and plan: -History of polysubstance use on chronic methadone confirmed with part (6) Depression: Assessment and plan: -Patient has not been taking any of his antidepressants and these will not be reinitiated during this hospital stay (7) HTN (hypertension): Status: Chronic Assessment and plan: -Patient appears to have had high blood pressure in the past with alcohol withdrawal and with his bradycardia and cardiac dysrhythmia w -Blood pressures were elevated earlier in the day but improved with improvement in alcohol withdrawal symptoms and pain management -Continue to monitor blood pressures, will start clonidine if blood pressures are consistently above 180 systolic Subjective Subjective Interval history since last seen: Patient seen earlier today was somewhat somnolent but was able to wake up and stated that he was having some mild pain but was able to restfully go back to sleep. Exam Narrative Exam Narrative: Acutely ill gentleman laying in bed and very mild distress when awake in no acute distress when resting/sleeping, when awake he is alert, oriented x 4, heart regular rhythm, lungs clear to auscultation bilaterally, abdomen mildly tender in epigastric region to deep palpation without rebound or guarding, nondistended Objective Last Vital Signs Temp 99.9 F H 10/18/24 08:37 Pulse 62 10/18/24 10:02 Resp 20 10/18/24 10:02 BP 192/112 H 10/18/24 10:02 Pulse Ox 96 10/18/24 09:02 Laboratory Results - last 24 hr 10/17/24 10/17/24 10/17/24 19:58 20:56 22:49 WBC 11.29 H RBC 5.09 Hgb 16.1 Hct 47.0 MCV 92 MCH 31.6 MCHC 34.3 RDW 14.6 H Plt Count 245 MPV 8.7 Immature Gran % 0.4 Neutrophils % 88.1 Lymphocytes % 6.6 Monocytes % 4.4 Eosinophils % 0.2 Basophils % 0.3 Nucleated RBC % 0.0 Absolute Neutrophils 9.95 H Absolute Lymphocytes 0.75 L Absolute Monocytes 0.50 Absolute Eosinophils 0.02 Absolute Basophils 0.03 PT INR Sodium 135 L Potassium 4.0 Chloride 98 Carbon Dioxide 30.3 Anion Gap 6.7 BUN 5 L Creatinine 1.0 Est GFR (CKD-EPI 2020) 94.59 Glucose 149 H Calcium 9.3 Phosphorus Magnesium 1.7 L Total Bilirubin 0.85 Conjugated Bilirubin AST 41 H ALT 22 Alkaline Phosphatase 104 Creatine Kinase 69 Troponin I 5 6 Cancelled Total Protein 8.2 Albumin 3.6 Lipase 394 H Urine Opiates Screen Urine Methadone Screen Ur Barbiturates Screen Ur Tricyclics Screen Bupropion Hydroxybupropion Ur Amphetamines Screen U Benzodiazepines Scrn Urine Cocaine Screen Ur THC Screen Ethyl Alcohol < 3.0 COVID-19 Source SARS-CoV-2 (PCR) 10/17/24 10/18/24 10/18/24 23:38 00:09 08:52 WBC RBC Hgb Hct MCV MCH MCHC RDW Plt Count MPV Immature Gran % Neutrophils % Lymphocytes % Monocytes % Eosinophils % Basophils % Nucleated RBC % Absolute Neutrophils Absolute Lymphocytes Absolute Monocytes Absolute Eosinophils Absolute Basophils PT INR Sodium Potassium Chloride Carbon Dioxide Anion Gap BUN Creatinine Est GFR (CKD-EPI 2020) Glucose Calcium Phosphorus Magnesium Total Bilirubin Conjugated Bilirubin AST ALT Alkaline Phosphatase Creatine Kinase Troponin I Total Protein Albumin Lipase Urine Opiates Screen Negative Urine Methadone Screen Positive A Ur Barbiturates Screen Positive A Ur Tricyclics Screen Negative Bupropion Cancelled Hydroxybupropion Cancelled Ur Amphetamines Screen Negative U Benzodiazepines Scrn Negative Urine Cocaine Screen Positive A Ur THC Screen Positive A Ethyl Alcohol COVID-19 Source Nasal/Nares SARS-CoV-2 (PCR) Negative 10/18/24 10/18/24 10:15 11:50 WBC 16.76 H RBC 5.18 Hgb 16.4 Hct 47.5 MCV 92 MCH 31.7 MCHC 34.5 RDW 14.7 H Plt Count 247 MPV 9.2 Immature Gran % 0.7 Neutrophils % 87.0 Lymphocytes % 5.1 Monocytes % 6.7 Eosinophils % 0.3 Basophils % 0.2 Nucleated RBC % 0.0 Absolute Neutrophils 14.58 H Absolute Lymphocytes 0.85 L Absolute Monocytes 1.12 H Absolute Eosinophils 0.05 Absolute Basophils 0.03 PT Cancelled 10.5 INR Cancelled 1.0 Sodium Cancelled 134 L Potassium Cancelled 3.9 Chloride Cancelled 99 Carbon Dioxide Cancelled 31.1 Anion Gap Cancelled 3.9 BUN Cancelled 6 L Creatinine Cancelled 0.9 Est GFR (CKD-EPI 2020) Cancelled 107.33 Glucose Cancelled 108 H Calcium Cancelled 8.8 Phosphorus Cancelled 3.8 Magnesium Cancelled 2.0 Total Bilirubin Cancelled 0.80 Conjugated Bilirubin Cancelled 0.2 AST Cancelled 25 ALT Cancelled 19 Alkaline Phosphatase Cancelled 94 Creatine Kinase Troponin I Total Protein Cancelled 7.8 Albumin Cancelled 3.2 L Lipase Urine Opiates Screen Urine Methadone Screen Ur Barbiturates Screen Ur Tricyclics Screen Bupropion Hydroxybupropion Ur Amphetamines Screen U Benzodiazepines Scrn Urine Cocaine Screen Ur THC Screen Ethyl Alcohol COVID-19 Source SARS-CoV-2 (PCR) Time Spent with Patient Time Spent with Patient: >50 minutes Time was spent: preparing to see the patient(eg.review tests), obtaining and/or reviewing separately otained hiistory, ordering medications,tests, procedures, referring, communicating with other health physician primary care sports medicine, indepentently interpreting results, counseling the patient and care coordination
--- NOTE | 2024-10-18 14:10 | PHA.REVIEW2 ---
Pharmacy Admission Review Admission Clinical Review Admission Pharmacy Review: Hypomagnesemia (Acute) Pancreatitis (Acute) Cellulitis (Acute) No Known Allergies Allergy (Verified 10/17/24 21:44) Resuscitation Status Full Code Height 6 ft Weight 91.6 kg Comments Comments/Follow Ups: Watch BP, QTc, CIWA, labs, phenobarbital dosing and for med changes (IV to PO once pt. is no longer NPO). Pharmacy Admission Review Renal Dosing Renal Dosing: BUN 6 mg/dL (7-18) L 10/18/24 11:50 Creatinine 0.9 mg/dL (0.70-1.30) 10/18/24 11:50 Medications needing adjustments: Reviewed (Crcl ~134 mL/min current meds are okay) Anticoagulation Anticoagulation: Hgb 16.4 g/dL (13.5-17.5) 10/18/24 10:15 Hct 47.5 % (40.0-50.0) 10/18/24 10:15 Plt Count 247 10^3/uL (130-400) 10/18/24 10:15 INR 1.0 (0.9-1.1) 10/18/24 11:50 Creatinine 0.9 mg/dL (0.70-1.30) 10/18/24 11:50 DVT Prophylaxis: Reviewed Medications: Enoxaparin Relevant Labs Relevant Labs: Sodium 134 mmol/L (136-145) L 10/18/24 11:50 Potassium 3.9 mmol/L (3.5-5.1) 10/18/24 11:50 Chloride 99 mmol/L (98-107) 10/18/24 11:50 Phosphorus 3.8 mg/dL (2.6-4.7) 10/18/24 11:50 Magnesium 2.0 mg/dL (1.8-2.4) 10/18/24 11:50 Electrolytes, C-Reactive P, ESR: Reviewed DM Control DM Control: Glucose 108 mg/dL (74-106) H 10/18/24 11:50 DM Control: Reviewed (No DM in medical history, no A1c on file.) Cardiac Review Cardiac Review: Troponin I Cancelled 10/17/24 22:49 BP, HR, EF%: Reviewed (BP has been elevated and HR has been low to normal.) QTc Review QTc: Reviewed (QTc 649 on admission, QTc ~450 today ) IV to PO Switch IV Medications: Reviewed Home Meds Home Med List reviewed: Intervened (methadone dosing verified w/HUNTER this morning) Relevent Home Meds Not ordered & why?: Currently the only med on his home med list that he is taking is ordered. Current Meds Current Medication Order Review: Intervened (Discontinued one time med orders that had already been given but did not have a stop time.) Pharmacy Antibiotic Review Pharmacy Antibiotic Activity: Reviewed, no change Comments: Cefazolin ordered (day 1) for cellulitis. Comments Comments/Follow Ups: Watch BP, QTc, CIWA, labs, phenobarbital dosing and for med changes (IV to PO once pt. is no longer NPO).
[2024-10-18] MEDS: PHENobarbital 130 MG/ML VIAL IVP ×6 (15:40→20:29)
[2024-10-18] MEDS: Nicotine 21 MG/24 HR PATCH TD (17:15)
[2024-10-18] MEDS: HYDROmorphone 2 MG/ML SYR 1 MG IVP (17:29)
[2024-10-18] MEDS: cloNIDine 0.1 MG TAB PO (17:30)
[2024-10-18] MEDS: HYDROmorphone 2 MG/ML SYR IVP ×5 (19:59→23:57)
[2024-10-18] MEDS: Mylanta Suspension 30 ML CUP PO (20:28)
[2024-10-19] VITALS (48 sets, daily range): BP systolic 131–201; BP diastolic 71–123; PULSE 50–90; RESP 13–24; TEMP 36.5–37.7; O2SAT 93–97
--- NOTE | 2024-10-19 | DI.RAD_ITS ---
Exam(s) XR ABDOMEN FLAT PLATE EXAM: XR ABDOMEN FLAT PLATE CLINICAL HISTORY: increasing abdominal pain. TECHNIQUE: 2D digital imaging was performed. COMPARISON: CT CT CHEST/ABD/PEL W from 10/17/2024 FINDINGS: AP supine view the abdomen: There is some gaseous distension of what is probably the ascending colon and transverse colon. No ob vious pneumatosis. However con not assess for free intraperitoneal air without an upright or decubit us image. No abnormal calcifications. Visualized lung bases are clear. IMPRESSION: As above. However, given that recent CT scan performed 10/17/2024 revealed acute pancreatitis if cli nically indicated repeat CT scan can be performed if there is worsening of symptoms to determine if t here is developing necrotizing pancreatitis, splenic vein thrombosis, gastroduodenal artery pseudoane urysm formation/hemorrhage or other concerning complications of the acute pancreatitis. DATA REPOSITORY: RADIATION DOSE DELIVERED:
[2024-10-19] MEDS: Normal Saline Flush 10 ML SYR IVP ×10 (00:15→20:23)
[2024-10-19] MEDS: PHENobarbital 130 MG/ML VIAL IVP ×2 (00:15→01:04)
[2024-10-19] MEDS: Pantoprazole 40 MG VIAL IVP ×3 (00:47→20:24)
[2024-10-19] MEDS: HYDROmorphone 2 MG/ML SYR IVP ×11 (00:48→22:37)
--- NOTE | 2024-10-19 01:50 | DI.VRAD_ITS ---
PROCEDURE INFORMATION: Exam: XR Abdomen Exam date and time: 10/19/2024 1:13 AM Age: 44 years old Clinical indication: Generalized; Patient HX: Increasing abdominal pain, pancreatitis TECHNIQUE: Imaging protocol: Radiologic exam of the abdomen. Views: Frontal supine view of the abdomen. 1 View. COMPARISON: CT CHEST/ABD/PEL W 10/17/2024 8:34 PM FINDINGS: Gastrointestinal tract: There is [id number] gaseous distension of what is most likely the ascending and transverse colon. Bowel gas pattern otherwise unremarkable. Bones/joints: Unremarkable. IMPRESSION: There is [id number] gaseous distension of what is most likely the ascending and transverse colon. Bowel gas pattern otherwise unremarkable. Dictated and Authenticated by: Peter Walker MD. Ordering:LAURA Quintero MD
[2024-10-19] MEDS: Simethicone 80 MG CHEW 160 MG PO ×3 (02:56→21:00)
[2024-10-19] MEDS: cloNIDine 0.1 MG TAB 0.2 MG PO ×4 (02:58→20:24)
[2024-10-19] MEDS: Normal Saline 1,000 ML 125 ML IV ×3 (05:07→22:32)
[2024-10-19 06:59] LABS: HCT 44.8 % (40.0-50.0); HGB 15.9 g/dL (13.5-17.5); MCH 31.9 pg (27.0-33.0); MCHC 35.5 % (32.0-36.0); MCV 90 fL (80-95); MPV 9.5 fL (8.0-11.0); Platelet Count 242 10^3/uL (130-400); RBC 4.98 10^6/uL (4.36-5.78); RDW 14.6 % (11.8-14.1); RDW-SD 48.3 fL; WBC 19.86 10^3/uL (4.4-10.8)
[2024-10-19 07:09] LABS: ALT 10 U/L (16-63); AST 25 U/L (15-37); Albumin 2.9 g/dL (3.4-5.0); Alkaline Phosphatase 80 U/L (46-116); Anion Gap 6.6 mmol/L (3-11); BUN 4 mg/dL (7-18); Bilirubin, Total 1.02 mg/dL (0.2-1.0); CO2 28.4 mmol/L (21.0-32.0); CREATININE 0.7 mg/dL (0.70-1.30); Calcium 8.7 mg/dL (8.5-10.1); Chloride 96 mmol/L (98-107); Glucose 83 mg/dL (74-106); Magnesium 1.8 mg/dL (1.8-2.4); PHOSPHORUS 2.4 mg/dL (2.6-4.7); Potassium 3.8 mmol/L (3.5-5.1); Sodium 131 mmol/L (136-145); Total Protein 7.5 g/dL (6.4-8.2)
[2024-10-19 07:13] LABS: Absolute Monocyte Count 1.79 10^3/uL (0.1-0.8); Absolute Neutrophil Count 17.48 10^3/uL (1.2-6.7); Bands % 4 %; Diff Comment Manual Differential; RBC Morphology Normal
[2024-10-19 07:32] LABS: PHENOBARBITAL 26.9 ug/mL (15.0-40.0)
[2024-10-19 07:38] LABS: Bilirubin, Direct 0.3 mg/dL (0.0-0.2)
[2024-10-19] MEDS: ceFAZolin 2 GM/50 ML BAG IVPB ×3 (07:46→22:56)
[2024-10-19] MEDS: Normal Saline 10 ML VIAL IJ (07:47)
[2024-10-19] MEDS: Methadone Liquid 10 MG/ML 100 MG PO (08:09)
[2024-10-19] MEDS: Normal Saline - Diluent 50 ML VIAL IJ (08:16)
[2024-10-19] MEDS: Omnipaque 350 MG/ML 100 ML BTL IJ (08:17)
--- NOTE | 2024-10-19 08:41 | PDOC.CMPRO ---
Date of service: 10/19/24 Time of Service: 08:41 Care Management Progress Note Progress Note Text Progress Note Text: William was asleep when CM attempted to meet with him. Per nursing he had a very difficult night. William has reached the hard stop on his phenobarbital protocol and last night continued to have symptoms. He was complaining of severe abdominal pain, possibly related to opiate withdrawal as well as pancreatitis, and received Dilaudid 2mg IV every hour for a total of 10 doses in less than 12 hours. He has been sleeping most of the day but is arousable. His oxygen saturation is good (mid to upper 90s) and his respiratory rate has remained stable in the upper teens to low 20s. William remains NPO and is receiving IV fluids for hydration. Discharge Potential Discharge Needs: PCP F/U Appt Anticipated Barriers to Discharge: None Identified Patient/Family Education Needs: Review discharge instructions, discuss Ask Me Three Transportation: Private vehicle Plan: Anticipate William will be discharged back home with no new services when medically stable. He will follow up with his PCP and plan of care and transport via [facility]. CM will follow and continue to assess for discharge needs. Social Determinants of Health Screening Will the Patient Participate in the Screening?: Declined to provide
--- NOTE | 2024-10-19 08:41 | DI.CT_ITS ---
Exam(s) CT ABDOMEN PELVIS W EXAM: CT ABDOMEN PELVIS W CLINICAL HISTORY: Pancreatitis, ongoing pain, increasing WBC TECHNIQUE: Imaging Protocol: Axial computed tomography images with coronal and sagittal reformatted images were created and reviewed. CONTRAST MATERIAL: Intravenous: Omnipaque 350 Contrast volume:100 mL Oral: No COMPARISON: CT CT ABDOMEN PELVIS WO from 06/20/[address] CHEST/ABD/PEL W from 10/17/2024 FINDINGS: ABDOMEN: Lung Bases: There is mild atelectasis in the lung bases. There is a 4 mm nodule in the left lower lo be (series 10, image 33). Liver: Normal density. No measurable mass. Portal, Superior Mesenteric, and Splenic Veins: Unremarkable. Gallbladder and Biliary Tract: No radiodense calculus or dilation. Pancreas: There is persistent inflammation around predominantly the head of the pancreas. No focal i n capsulated peripancreatic fluid collection is seen to suggest an abscess. Spleen: Normal. Adrenals: No masses seen. Kidneys: Normal size, contour and axis. No radiodense stones or obstructive uropathy. No masses seen. Abdominal Aorta: Abdominal portion non-dilated. Atherosclerotic calcification is present. Bowel: There is persistent mild thickening of the wall of the proximal duodenum consistent with duode nitis likely secondary to the adjacent pancreatitis. There is no evidence of bowel obstruction. Amy endix is unremarkable. Peritoneal Cavity: There has been interval development of a small amount of pelvic ascites. There is also mild increase in the edema in the upper abdomen. There is a tiny amount of perihepatic ascites . No free air. Lymph Nodes: Mildly enlarged reactive lymph nodes in the abdomen. Bones: Within normal limits for the patient's age. Soft Tissues: There is a small amount of subcutaneous air in the right lower quadrant of the abdomina l wall. This was not present on the prior examination from 10/17/2024. Please correlate with any rece nt therapy administration. No evidence of an abscess is seen. PELVIS: Bladder: Symmetric distention, no gross wall thickening. Reproductive Organs: Unremarkable as visualized. Lymph Nodes: Within normal limits. Bones: Within normal limits for the patient's age. IMPRESSION: 1. Findings again seen consistent with acute pancreatitis. There has been interval development of a small amount of abdominal pelvic ascites. 2. Persistent mild wall thickening in the proximal duodenum likely reflecting duodenitis. 3. Small amounts of subcutaneous air in the right abdominal wall which may be iatrogenic. 4. 4 mm nodule in the left lower lobe. Solid nodules smaller than 6 mm do not require routine follow-up in all patients with high clinical r isk; however, some nodules smaller than 6 mm with suspicious morphology, upper lobe location, or both may warrant follow-up at 12 months (grade 2A; weak recommendation, high-quality evidence). (Zoey et al., 2017) Single solid noncalcified nodules. ???Solid nodules smaller than 6 mm (those 5 mm or smaller) do not require routine follow-up in patients at low risk (grade 1C; strong recommendation, low- or very-low- quality evidence). (Zoey et al., 2017) RADIATION DOSE DELIVERED: 621.63mGy.cm Total DLP DATA REPOSITORY: All CT scans at this facility are submitted to the National Radiology Data Registry (NRDR) Dose Index Registry (DIR) with the [employer] (ACR). RADIATION OPTIMIZATION: All CT scans at this facility use at least one of these dose optimization te chniques: automated exposure control; mA and/or kV adjustment per patient size (includes targeted exa ms where dose is matched to clinical indication); or iterative reconstruction.
[2024-10-19] MEDS: ACETAMINOPHEN 1,000 MG/100 ML BAG 400 MG IVPB ×3 (09:49→22:36)
--- NOTE | 2024-10-19 13:35 | W.PM.PROGNOT ---
Date of Service Date of service: 10/19/24 Time of Service: 13:35 Assessment and Plan Assessment and plan (1) Pancreatitis: Start date: 10/17/24 Status: Acute Assessment and plan: -Patient presented with nausea vomiting abdominal pain in the setting of alcohol consumption found to be acute pancreatitis -Patient unable to tolerate p.o. intake, remains n.p.o. and on IV fluids -patient with increased pain and WBC this AM, CT abdo/pelvis did no show any development of pancreatic abscess or pseudo-cyct or other acute findings -Lipase 394 on admission (2) Alcohol dependence: Status: Chronic Assessment and plan: -Patient has had severe withdrawal in the past and was placed on alcohol withdrawal protocol using phenobarbital and has since hit the hard stop for dosing -ongoing pain/discomfort likely more related to opiate use and withdrawal, as well as ongoing pancreatitis (3) Hypomagnesemia: Start date: 10/17/24 Status: Acute Assessment and plan: -On athletic monitor the patient did have sinus bradycardia though he is hypertensive with his alcohol withdrawal and pain. -Patient also having frequent PVCs and nonsustained short runs of V. tach -Magnesium was low on admission patient was given 2 g of IV mag -Patient has not had any additional signs of ventricular arrhythmia since about 5 AM on the morning of 10/18/2024 -Will continue to monitor give additional IV mag as needed (4) Cellulitis: Start date: 10/17/24 Status: Acute Assessment and plan: -Patient has chronic skin breakdown over his left lateral ankle which has a dry scabbed over ulcers and surrounding erythema and increased warmth as well as local edema -Was apparently seen last week placed on p.o. antibiotic, was started on Ancef on admission, will continue (5) Polysubstance abuse: Status: Chronic Assessment and plan: -History of polysubstance use on chronic methadone confirmed with part (6) Depression: Assessment and plan: -Patient has not been taking any of his antidepressants and these will not be reinitiated during this hospital stay (7) HTN (hypertension): Status: Chronic Assessment and plan: -Patient appears to have had high blood pressure in the past with alcohol withdrawal and with his bradycardia and cardiac dysrhythmia w -Blood pressures were elevated earlier in the day but improved with improvement in alcohol withdrawal symptoms and pain management -Continue to monitor blood pressures, will start clonidine if blood pressures are consistently above 180 systolic Subjective Subjective Interval history since last seen: Patient was having difficulty with pain earlier in day with pain control, but this has since improved with home dose of methadone and PRN pain medications. Exam Narrative Exam Narrative: Acutely ill gentleman laying in bed and very mild distress when awake in no acute distress when resting/sleeping, when awake he is alert, oriented x 4, heart regular rhythm, lungs clear to auscultation bilaterally, abdomen mildly tender in epigastric region to deep palpation without rebound or guarding, nondistended Objective Last Vital Signs Temp 99.9 F H 10/19/24 07:45 Pulse 55 L 10/19/24 11:01 Resp 17 10/19/24 11:01 BP 164/98 H 10/19/24 11:01 Pulse Ox 96 10/19/24 11:01 Laboratory Results - last 24 hr 10/19/24 10/19/24 10/19/24 05:35 06:32 06:40 WBC RBC Hgb Hct MCV MCH MCHC RDW Plt Count MPV Immature Gran % Neutrophils % Band Neutrophils % Lymphocytes % Monocytes % Eosinophils % Basophils % Nucleated RBC % Absolute Neutrophils Absolute Lymphocytes Absolute Monocytes Absolute Eosinophils Absolute Basophils RBC Morphology Sodium Cancelled 131 L Potassium Cancelled 3.8 Chloride Cancelled 96 L Carbon Dioxide Cancelled 28.4 Anion Gap Cancelled 6.6 BUN Cancelled 4 L Creatinine Cancelled 0.7 Est GFR (CKD-EPI 2020) Cancelled 115.80 Glucose Cancelled 83 Calcium Cancelled 8.7 Phosphorus 2.4 L Magnesium 1.8 Total Bilirubin Cancelled 1.02 H Conjugated Bilirubin 0.3 H AST Cancelled 25 ALT Cancelled 10 L Alkaline Phosphatase Cancelled 80 Total Protein Cancelled 7.5 Albumin Cancelled 2.9 L Phenobarbital 26.9 10/19/24 06:43 WBC 19.86 H RBC 4.98 Hgb 15.9 Hct 44.8 MCV 90 MCH 31.9 MCHC 35.5 RDW 14.6 H Plt Count 242 MPV 9.5 Immature Gran % See Differential Neutrophils % 84.0 Band Neutrophils % 4 Lymphocytes % 3.0 Monocytes % 9.0 Eosinophils % 0.0 Basophils % 0.0 Nucleated RBC % 0.0 Absolute Neutrophils 17.48 H Absolute Lymphocytes 0.60 L Absolute Monocytes 1.79 H Absolute Eosinophils 0.00 Absolute Basophils 0.00 RBC Morphology Normal Sodium Potassium Chloride Carbon Dioxide Anion Gap BUN Creatinine Est GFR (CKD-EPI 2020) Glucose Calcium Phosphorus Magnesium Total Bilirubin Conjugated Bilirubin AST ALT Alkaline Phosphatase Total Protein Albumin Phenobarbital Time Spent with Patient Time Spent with Patient: >50 minutes Time was spent: preparing to see the patient(eg.review tests), obtaining and/or reviewing separately otained hiistory, ordering medications,tests, procedures, referring, communicating with other health primary care nurse practitioner, indepentently interpreting results, counseling the patient and care coordination
[2024-10-19] MEDS: Enoxaparin 40 MG/0.4 ML SYR SC (20:24)
[2024-10-19] MEDS: cloNIDine 0.1 MG TAB PO (21:14)
[2024-10-19] MEDS: Ketorolac 30 MG/ML VIAL IVP (21:14)
[2024-10-20] VITALS (40 sets, daily range): BP systolic 104–143; BP diastolic 56–117; PULSE 43–55; RESP 11–20; TEMP 37–37.9; O2SAT 91–98
[2024-10-20] MEDS: Normal Saline Flush 10 ML SYR IVP ×4 (00:06→21:57)
[2024-10-20] MEDS: HYDROmorphone 2 MG/ML SYR IVP ×13 (00:07→23:25)
[2024-10-20] MEDS: cloNIDine 0.1 MG TAB 0.3 MG PO ×4 (02:38→19:14)
[2024-10-20] MEDS: LORazepam 1 MG TAB PO (02:51)
[2024-10-20] MEDS: ACETAMINOPHEN 1,000 MG/100 ML BAG 400 MG IVPB ×3 (04:05→19:41)
[2024-10-20] MEDS: Ketorolac 30 MG/ML VIAL IVP (04:18)
[2024-10-20] MEDS: Normal Saline 1,000 ML 125 ML IV ×3 (04:19→23:22)
[2024-10-20] MEDS: Docusate Sodium 100 MG CAP PO (06:07)
[2024-10-20] MEDS: Mylanta Suspension 30 ML CUP PO ×3 (06:08→19:14)
[2024-10-20] MEDS: Simethicone 80 MG CHEW 160 MG PO ×2 (06:08→19:13)
[2024-10-20 07:07] LABS: Abs Immature Grans 0.17 10^3/uL (0.0-0.06); Absolute Monocyte Count 1.44 10^3/uL (0.1-0.8); Absolute Neutrophil Count 12.45 10^3/uL (1.2-6.7); Basophils % 0.3 %; Eosinophils % 0.3 %; HCT 39.7 % (40.0-50.0); HGB 13.8 g/dL (13.5-17.5); Immature Grans % 1.1 %; Lymphocytes % 7.6 %; MCH 31.7 pg (27.0-33.0); MCHC 34.8 % (32.0-36.0); MCV 91 fL (80-95); MPV 9.9 fL (8.0-11.0); Monocytes % 9.4 %; Neutrophils % 81.3 %; Platelet Count 194 10^3/uL (130-400); RBC 4.35 10^6/uL (4.36-5.78); RDW 14.7 % (11.8-14.1); RDW-SD 49.6 fL; WBC 15.31 10^3/uL (4.4-10.8)
[2024-10-20 07:09] LABS: Absolute Basophil Count 0.05 10^3/uL (0.0-0.2); Absolute Eosinophil Count 0.05 10^3/uL (0.0-0.7); Absolute Lymphocyte Count 1.16 10^3/uL (1.2-3.4)
[2024-10-20 08:01] LABS: ALT 10 U/L (16-63); AST 17 U/L (15-37); Albumin 2.2 g/dL (3.4-5.0); Alkaline Phosphatase 66 U/L (46-116); Anion Gap 7.1 mmol/L (3-11); BUN 11 mg/dL (7-18); Bilirubin, Direct 0.3 mg/dL (0.0-0.2); Bilirubin, Total 0.76 mg/dL (0.2-1.0); CO2 27.9 mmol/L (21.0-32.0); CREATININE 0.9 mg/dL (0.70-1.30); Calcium 8.5 mg/dL (8.5-10.1); Chloride 100 mmol/L (98-107); Estimated GFR 107.33 (mL/min/1.73m2); Glucose 56 mg/dL (74-106); Magnesium 1.9 mg/dL (1.8-2.4); PHOSPHORUS < 2.0 mg/dL (2.6-4.7); Potassium 3.5 mmol/L (3.5-5.1); Sodium 135 mmol/L (136-145); Total Protein 6.3 g/dL (6.4-8.2)
--- NOTE | 2024-10-20 08:25 | PDOC.CMPRO ---
Date of service: 10/20/24 Time of Service: 08:25 Care Management Progress Note Progress Note Text Progress Note Text: William was lying in bed when CM meet with him. He continues to report severe abdominal pain and is receiving IV Dilaudid which he can have every hour as needed. Yesterday he was requiring medication every hour but today he has been able to go almost 3 house between doses. He has a clear liquid diet ordered and is attempting sips of fluids and ice pops but informed CM that it does increase his pain. Discharge Potential Discharge Needs: PCP F/U Appt Anticipated Barriers to Discharge: Medical Status Patient/Family Education Needs: Review discharge instructions, discuss Ask Me Three Transportation: [facility] Plan: Anticipate William will be discharged back home with no new services when medically stable. He will follow up with his PCP and plan of care and transport via [facility]. CM will follow and continue to assess for discharge needs. Social Determinants of Health Screening Will the Patient Participate in the Screening?: Declined to provide
[2024-10-20] MEDS: Methadone Liquid 10 MG/ML 50 MG PO ×2 (08:57→20:05)
[2024-10-20] MEDS: ceFAZolin 2 GM/50 ML BAG IVPB ×2 (08:58→15:15)
[2024-10-20] MEDS: Pantoprazole 40 MG VIAL IVP ×2 (08:59→19:15)
[2024-10-20 11:16] LABS: Fentanyl Scr w/Rfx Confirm Positive ng/mL (<1)
[2024-10-20 11:25] LABS: Xylazine, Confirmation Urine Negative ng/mL (<50)
--- NOTE | 2024-10-20 16:21 | W.PM.PROGNOT ---
Date of Service Date of service: 10/20/24 Time of Service: 16:21 Assessment and Plan Assessment and plan (1) Pancreatitis: Start date: 10/17/24 Status: Acute Assessment and plan: -Patient presented with nausea vomiting abdominal pain in the setting of alcohol consumption found to be acute pancreatitis -Diet being advanced as tolerated, currently tolerating p.o. fluids -patient with increased pain and WBC on AM 1/7, CT abdo/pelvis did no show any development of pancreatic abscess or pseudo-cyct or other acute findings -Lipase 394 on admission (2) Alcohol dependence: Status: Chronic Assessment and plan: -Patient has had severe withdrawal in the past and was placed on alcohol withdrawal protocol using phenobarbital and has since hit the hard stop for dosing -ongoing pain/discomfort likely more related to opiate use and withdrawal, as well as ongoing pancreatitis (3) Hypomagnesemia: Start date: 10/17/24 Status: Acute Assessment and plan: -On satellite project site monitor the patient did have sinus bradycardia though he is hypertensive with his alcohol withdrawal and pain. -Patient also having frequent PVCs and nonsustained short runs of V. tach -Magnesium was low on admission patient was given 2 g of IV mag -Patient has not had any additional signs of ventricular arrhythmia since about 5 AM on the morning of 10/18/2024 -Will continue to monitor give additional IV mag as needed (4) Cellulitis: Start date: 10/17/24 Status: Acute Assessment and plan: -Patient has chronic skin breakdown over his left lateral ankle which has a dry scabbed over ulcers and surrounding erythema and increased warmth as well as local edema -Was apparently seen last week placed on p.o. antibiotic, was started on Ancef on admission, will continue (5) Polysubstance abuse: Status: Chronic Assessment and plan: -History of polysubstance use on chronic methadone confirmed with [facility] -100 mg daily methadone dose has been split to 50 mg twice daily in order to decrease episodes of increased pain overnight (6) Depression: Assessment and plan: -Patient has not been taking any of his antidepressants and these will not be reinitiated during this hospital stay (7) HTN (hypertension): Status: Chronic Assessment and plan: -Patient appears to have had high blood pressure in the past with alcohol withdrawal and with his bradycardia and cardiac dysrhythmia w -Blood pressures were elevated earlier in the day but improved with improvement in alcohol withdrawal symptoms and pain management -Continue to monitor blood pressures, will start clonidine if blood pressures are consistently above 180 systolic Subjective Subjective Interval history since last seen: Patient again slept throughout the day yesterday and had difficulty with pain overnight. Is again resting comfortably throughout the day despite having methadone split. Has been tolerating p.o. intake. Exam Narrative Exam Narrative: Acutely ill gentleman laying in bed and very mild distress when awake in no acute distress when resting/sleeping, when awake he is alert, oriented x 4, heart regular rhythm, lungs clear to auscultation bilaterally, abdomen mildly tender in epigastric region to deep palpation without rebound or guarding, nondistended Objective Last Vital Signs Temp 98.6 F 10/20/24 07:00 Pulse 43 L 10/20/24 14:01 Resp 20 10/20/24 11:01 BP 136/87 10/20/24 14:01 Pulse Ox 95 10/20/24 14:01 Laboratory Results - last 24 hr 10/18/24 10/19/24 10/20/24 08:52 05:40 05:55 WBC 15.31 H RBC 4.35 L Hgb 13.8 D Hct 39.7 L MCV 91 MCH 31.7 MCHC 34.8 RDW 14.7 H Plt Count 194 MPV 9.9 Immature Gran % 1.1 Neutrophils % 81.3 Lymphocytes % 7.6 Monocytes % 9.4 Eosinophils % 0.3 Basophils % 0.3 Nucleated RBC % 0.0 Absolute Neutrophils 12.45 H Absolute Lymphocytes 1.16 L Absolute Monocytes 1.44 H Absolute Eosinophils 0.05 Absolute Basophils 0.05 Sodium 135 L Potassium 3.5 Chloride 100 Carbon Dioxide 27.9 Anion Gap 7.1 BUN 11 Creatinine 0.9 Est GFR (CKD-EPI 2020) 107.33 Glucose 56 L Calcium 8.5 Phosphorus < 2.0 L Magnesium 1.9 Total Bilirubin 0.76 Conjugated Bilirubin 0.3 H AST 17 ALT 10 L Alkaline Phosphatase 66 Total Protein 6.3 L Albumin 2.2 L Urine Fentanyl Screen Positive A Urine Xylazine Negative PAWSS Have you Been Recently Intoxicated or Drunk Within the Last 30 days?: Unable to Obtain Have you Ever Experienced Previous Episodes of Alcohol Withdrawal?: Unable to Obtain Have you ever Experienced Withdrawal Seizures?: Unable to Obtain Have you ever Experienced Delirium Tremens(DT)s?: Unable to Obtain Have you ever undergone Alcohol Rehabilitation Treatment (i.e, inpt ot outpatient treatment programs)?: Unable to Obtain Have you ever Experienced Blackouts?: Unable to Obtain Have you ever Combined Alcohol with other Downers within the last 90 days?: Unable to Obtain Have you ever Combined Alcohol with any other Substance of Abuse during the last 90 days?: Unable to Obtain Positive Blood Alcohol level on Presentation? [PCS.BAL]: Unable to Obtain Evidence of Increased Autonomic Activity (i.e. HR>120, tremor, sweating, agitation, nausea)?: Unable to Obtain Time Spent with Patient Time Spent with Patient: >50 minutes Time was spent: preparing to see the patient(eg.review tests), obtaining and/or reviewing separately otained hiistory, ordering medications,tests, procedures, referring, communicating with other health rn managed care, indepentently interpreting results, counseling the patient and care coordination
[2024-10-20] MEDS: HYDROmorphone 2 MG TAB PO ×2 (17:42→23:27)
[2024-10-20] MEDS: Enoxaparin 40 MG/0.4 ML SYR SC (19:14)
--- NOTE | 2024-10-20 19:15 | RT.EKG_ITS ---
APPROVED REPORT Exam: Resting ECG Reason for Exam: Prolonged QTc evaluation Patient Location: I HR:50 bpm ECG Measurements Heart Rate 50 AXIS LA 135 P 0 QRSd 94 QRS 17 QT 582 T 6 QTc 531 Conclusion Sinus rhythm...normal P axis, V-rate 50- 99 Prolonged QT interval...QTc >500mS
[2024-10-20] MEDS: Ketorolac 15 MG/ML VIAL IVP (20:27)
[2024-10-21] VITALS (32 sets, daily range): BP systolic 94–142; BP diastolic 48–86; PULSE 43–54; RESP 13–24; TEMP 36.7–37.2; O2SAT 93–97
[2024-10-21] MEDS: Normal Saline 1,000 ML 125 ML IV ×2 (00:21→09:49)
[2024-10-21] MEDS: HYDROmorphone 2 MG/ML SYR IVP ×5 (02:15→06:36)
[2024-10-21] MEDS: ceFAZolin 2 GM/50 ML BAG IVPB ×2 (02:16→09:51)
[2024-10-21] MEDS: Simethicone 80 MG CHEW 160 MG PO ×2 (02:47→14:56)
[2024-10-21] MEDS: Ketorolac 15 MG/ML VIAL IVP ×3 (02:47→12:38)
[2024-10-21] MEDS: cloNIDine 0.1 MG TAB 0.3 MG PO (04:33)
[2024-10-21] MEDS: Docusate Sodium 100 MG CAP PO (06:36)
[2024-10-21] MEDS: Polyethylene Glycol 3350 17 GM PACKET PO (06:36)
[2024-10-21] MEDS: ACETAMINOPHEN 1,000 MG/100 ML BAG 400 MG IVPB ×2 (06:49→07:00)
[2024-10-21] MEDS: Milk of Magnesia 30 ML CUP PO (06:50)
[2024-10-21] MEDS: Magnesium Oxide 400 MG TAB 800 MG PO (06:54)
--- NOTE | 2024-10-21 09:26 | PDOC.CMPRO ---
Date of service: 10/21/24 Time of Service: 09:26 Care Management Progress Note Discharge Potential Discharge Needs: PCP F/U Appt Anticipated Barriers to Discharge: Medical Status Patient/Family Education Needs: Review discharge instructions, discuss Ask Me Three Transportation: Private vehicle Plan: Anticipate William will be discharged back home with no new services when medically stable. He will follow up with his PCP and plan of care and transport via [facility]. CM will follow and continue to assess for discharge needs. Social Determinants of Health Screening Will the Patient Participate in the Screening?: Declined to provide
[2024-10-21] MEDS: Pantoprazole 40 MG VIAL IVP (10:02)
[2024-10-21] MEDS: Normal Saline Flush 10 ML SYR IVP ×2 (10:03→12:40)
[2024-10-21] MEDS: Methadone Liquid 10 MG/ML 50 MG PO ×2 (10:17→15:08)
[2024-10-21 10:25] LABS: Fentanyl Confirmation Negative ng/mL (<2); Norfentanyl Confirmation 29 ng/mL (<10)
[2024-10-21] MEDS: Mylanta Suspension 30 ML CUP PO (13:42)
--- NOTE | 2024-10-21 14:50 | DSE_ITS ---
Date of service: 10/21/24 Time of Service: 19:00 DS: Diagnosis Discharge Diagnosis (1) Pancreatitis: Status: Resolved (2) Alcohol dependence: Status: Chronic (3) Hypomagnesemia: Status: Resolved (4) Cellulitis: Status: Resolved (5) Polysubstance abuse: Status: Chronic (6) Depression: (7) HTN (hypertension): Status: Chronic Discharge Plan Disposition Patient Disposition: Home Condition: Good Discharge Details Reason For Visit: Acute pancreatitis, Alcohol withdrawal, Hypertensi Admit Date/Time: 10/17/24 21:59 Admit Provider: Leon Colindres Attending Provider: Leon Colindres Primary Care Provider: Unknown,Unknown Hospital Course Hospital Course: Patient initially presented with signs and symptoms consistent with acute pancreatitis secondary to alcohol use disorder as well as alcohol and opiate withdrawal. While hospitalized patient received maximum weight-based amount of IV phenobarbital and had resolution of his alcohol withdrawal symptoms. However, after that ongoing symptoms from acute pancreatitis persisted and patient required additional opiates for ongoing pain. Ultimately, he was able to slowly advance his diet was able to tolerate regular diet without needing additional as needed IV Dilaudid. Ultimately, given that the patient was able to tolerate p.o. intake without requiring as needed opiate medication it was determined that he was stable for discharge home. Home Meds and New Rx's Prescriptions: New alum-mag hydroxide-simeth [Mag-Al Plus] 200-200-20 mg/5 mL Suspension 30 ml PO Q2H PRN PRNQty: 3000 0RF simethicone 80 mg Tablet,Chewable 160 mg PO Q6H PRN PRN (Reason: Abdominal Pain) Qty: 30 0RF Continued methadone 10 mg/mL concentrate 100 mg PO DAILY Patient Comments: @ [facility], verified last dose 03/30/24 for 100mg Discontinued bupropion HCl 150 mg tablet extended release 24 hr 150 mg PO DAILY Patient Comments: TAKE ONE TABLET BY MOUTH EVERY DAY fluoxetine 20 mg capsule 20 mg PO DAILY Patient Comments: TAKE ONE CAPSULE BY MOUTH EVERY DAY aripiprazole 10 mg tablet 10 mg PO DAILY Patient Comments: TAKE ONE TABLET BY MOUTH AT BEDTIME hydroxyzine pamoate 50 mg capsule 50 mg PO .q6 h PRN Patient Comments: TAKE ONE CAPSULE BY MOUTH EVERY 6 HOURS NEEDED omeprazole 20 mg capsule,delayed release(DR/EC) 20 mg PO DAILY Patient Comments: TAKE ONE CAPSULE BY MOUTH EVERY DAY gabapentin 300 mg capsule 300 mg PO TID Patient Comments: TAKE ONE CAPSULE BY MOUTH THREE TIMES A DAY DIRECTED No Action dicyclomine 10 mg capsule 10 mg PO BID Qty: 4 0RF metoclopramide HCl [Reglan] 10 mg tablet 10 mg PO Q6H PRN (Reason: nausea and vomiting) Qty: 30 0RF Discharge Instructions Referrals: THERESA PRESC[facility] [ NON-[facility] STAFF PHYSICIAN] - 10/28/24 9:30 am (Please call [phone] at least 24hrs before appointment to cancel if you are unable to make it.) Activity:: Activity as Tolerated Equipment/Supplies:: No Equipment Needed Diet:: As Tolerated Discharge Orders Discharge Orders: Discharge Order (Routine); Ordered 10/21/24 Ordered By: Renato Watts Discharge Data Discharge Date/Time-TO BE ENTERED AT DEPARTURE: 10/21/24 16:00 DS: Summary Time Spent with Patient providing and/or coordinating discharge services: Greater than 30 minutes Status at Discharge Functional status at discharge: independent ambulation Overall status at discharge: patient is back to baseline Mental Status: mental status grossly normal Speech and Movement: speech and movement normal Mood: congruent mood Affect: normal affect Quality:SDOH Health Related Social Needs: No Data to Display Exam Narrative Exam Narrative: well appearing gentleman laying in bed and very mild distress when awake in no acute distress when resting/sleeping, when awake he is alert, oriented x 4, heart regular rhythm, lungs clear to auscultation bilaterally, abdomen mildly tender in epigastric region to deep palpation without rebound or guarding, nondistended Psych Mental Status: mental status grossly normal Speech and Movement: speech and movement normal Mood: congruent mood Affect: normal affect DS: Data Vitals/I&O Vitals and I&O: Vital Signs Temperature 98.1 F 10/21/24 10:15 Temperature Source Tympanic 10/21/24 10:15 Pulse 52 L 10/21/24 14:01 Pulse 53 L 10/21/24 14:01 Respiratory Rate 18 10/21/24 14:01 Respiratory Effort Normal 10/17/24 23:40 Respiratory Depth Normal 10/17/24 23:40 Respiratory Pattern Normal 10/17/24 23:40 Blood Pressure 109/48 L 10/21/24 14:01 Blood Pressure Mean 60 10/21/24 14:01 Blood Pressure Position Supine 10/17/24 23:40 Pulse Oximetry 95 10/21/24 14:01 Oxygen Delivery Method Room Air 10/20/24 00:01 Oxygen Flow Rate 0 10/20/24 00:01 Pain Level 9 10/21/24 05:26 Comment see saved vital signs from monitor 10/19/24 03:45 Intake & Output 10/20/24 10/21/24 10/21/24 17:59 05:59 17:59 Intake Total 1700 / 1700 1612.917 / 3312.917 1343.333 / 1343.333 Output Total 350 / 350 725 / 1075 900 / 900 Balance 1350 / 1350 887.917 / 2237.917 443.333 / 443.333 Weight 208 lb 12.444 oz 210 lb 1.608 oz Intake: IV 1300 / 1300 1272.917 / 2572.917 1123.333 / 1123.333 Oral 400 / 400 340 / 740 220 / 220 Output: Urine 350 / 350 725 / 1075 900 / 900 Other: Urine Color Dark Juliann Yellow Yellow Urine Appearance Clear Clear Clear Urine Odor Strong Stool Size Moderate Stool Characteristics Liquid Data Completed and Pending Labs on day of discharge: Labs from last 24 hours 10/19/24 05:40 Ur Fentanyl Confirm Negative Ur Norfentanyl Confirm 29 A PFSH All Active Problems (Updated 10/26/24 @ 07:47 by Boogie Hanley DO) Abdominal cramping (Acute) Ileus (Acute) Acute hypokalemia (Acute) HTN (hypertension) (Chronic) Suicide ideation (Acute) Polysubstance abuse (Chronic) Opioid use disorder (Acute) Nicotine dependence (Acute) Opioid dependence on agonist therapy (Acute) Alcohol dependence (Chronic) Medical History Pancreatitis DVT (deep venous thrombosis) History of osteomyelitis Hepatitis B Hepatitis C Depression Alcohol withdrawal Polysubstance abuse Family History Other Alcohol use disorder Depression Social History Smoking/Tobacco Use Status: Current every day Tobacco Type: cigarettes Smoking risk assessment performed?: Yes Alcohol Intake: current Alcohol Intake frequency: 3 or more drinks per day Alcohol type: hard liquor Drug use: Daily Substance use type: marijuana Details: Pt states he last used marijuana 10/23/24 Last used ETOH about 10/16/24 Housing: house Do you feel safe at home: Yes Do you feel safe in your relationship?: Yes Time Spent with Patient Time Spent with Patient: <45 minutes Time was spent: preparing to see the patient(eg.review tests), obtaining and/or reviewing separately otained hiistory, ordering medications,tests, procedures, referring, communicating with other health critical care physician assistant, indepentently interpreting results, counseling the patient and care coordination
--- NOTE | 2024-10-21 15:17 | PDOC.CMDIS ---
Date of service: 10/21/24 Time of Service: 15:17 LACE Index Scoring Tool Questions: Length of Stay (in days): 4 - 6 Was the patient admitted via the E.D.?: Yes Comorbidities: Liver or Renal Disease E.D. Visits: 4 Answers: Total Score: 16 Risk of Readmission: High Risk Care Management Discharge Plan Reason for Hospitalization: pancreatitis Discharge Plan: William will be discharged home with no new services. He will follow up with his community providers and plan of care and transport with family. Patient/Family Education Needs: Review discharge instructions, discuss Ask Me Three [facility] Health Related Social Needs: No Data to Display
[2024-10-25 07:41] LABS: Bupropion None Detected
== END 2024-10-21 16:00 | disposition home or self-care (01) | DRG 439 ==
LOC: ER 22:48 → ICU 10-18 00:02
PROVIDERS: Admitting Provider Family Medicine; Emergency Provider Emergency Medicine; Visit Provider Family Medicine
DX: K85.20 Alcohol induced acute pancreatitis without necrosis or infection (principal); F10.239 Alcohol dependence with withdrawal, unspecified; L03.116 Cellulitis of left lower limb; I47.20 Ventricular tachycardia, unspecified; F11.23 Opioid dependence with withdrawal; R45.851 Suicidal ideations; E83.42 Hypomagnesemia; F19.10 Other psychoactive substance abuse, uncomplicated; Z86.718 Personal history of other venous thrombosis and embolism; F32.A Depression, unspecified; F17.210 Nicotine dependence, cigarettes, uncomplicated; K29.80 Duodenitis without bleeding; I10 Essential (primary) hypertension; I49.3 Ventricular premature depolarization
CPT/HCPCS: 00123; 36415; 74177; 80048; 80053; 80076; 80307; 80338; 80354; 80375; 82550; 83690; 85027; 87635; 93005; 96365; 96375; 96376; 99285; J1650; 71260; 74018; 80184; 80320; 83735; 84100; 84484; 85025; 85610; 93010; 99223; 99233; 99239; J0131; J0690; J1171; J1885; J2405; J2470; J2560; J3360; J3411; J3475; J3490

== ENCOUNTER 2024-10-23 05:47 | Emergency (ER) | payer MEDICAID, SELFPAY ==
[2024-10-23] VITALS (20 sets, daily range): BP systolic 155–172; BP diastolic 73–96; PULSE 52–90; RESP 15–27; TEMP 37.1; O2SAT 96–99
--- NOTE | 2024-10-23 05:45 | DI.CT_ITS ---
Exam(s) CT ABDOMEN PELVIS W EXAM: CT ABDOMEN PELVIS W CLINICAL HISTORY: distension, abdominal pain TECHNIQUE: Imaging Protocol: Axial computed tomography images with coronal and sagittal reformatted images were created and reviewed. CONTRAST MATERIAL: Intravenous: Omnipaque 350 Contrast volume:75 mL Oral: No COMPARISON: CT CT ABDOMEN PELVIS W from 10/19/2024 FINDINGS: ABDOMEN: Lung Bases: There is a small left pleural effusion. Mild ground-glass opacities are seen in the lung bases. Atelectatic changes are seen in the dependent portions of the lung. Liver: Normal density. No measurable mass. Portal, Superior Mesenteric, and Splenic Veins: Unremarkable. Gallbladder and Biliary Tract: No radiodense calculus or dilation. Pancreas: There is again seen heterogeneity of the pancreas with enlargement of the pancreatic head. There are areas of decreased attenuation seen within the pancreatic head which may reflect necrosis. There is infiltration of the surrounding soft tissues but no focal fluid collection is seen at this time. Spleen: Normal. Adrenals: No masses seen. Kidneys: Normal size, contour and axis. No radiodense stones or obstructive uropathy. No masses seen. Abdominal Aorta: Abdominal portion non-dilated. Mild atherosclerotic calcification is present. Bowel: There is now distension of the colon predominantly involving the cecum, ascending colon and tr ansverse colon. No transition point is seen to suggest obstruction. There is no significant bowel w all thickening. Air-fluid levels are seen within the colon. This may represent an ileus. Diarrheal illness should also be considered. There is a normal appendix. No significant bowel wall thickenin g is seen in the duodenum at this time. Peritoneal Cavity: No ascites, collection or mesenteric inflammatory response. There has been a decr ease in the free fluid in the pelvis which is small. There is a tiny amount of fluid in the paracoli c gutters. Lymph Nodes: Within normal limits. Bones: Within normal limits for the patient's age. Soft Tissues: Unremarkable. PELVIS: Bladder: Symmetric distention, no gross wall thickening. Reproductive Organs: Unremarkable as visualized. Lymph Nodes: Within normal limits. Bones: Within normal limits for the patient's age. IMPRESSION: 1. There findings again consistent with acute pancreatitis. There are areas of decreased attenuation in the pancreas which may reflect necrosis. No focal fluid collection is seen to suggest an abscess . 2. Small left pleural effusion. Ground-glass opacities in the lung base. 3. Small free fluid in the pelvis which has decreased compared to the prior examination. 4. Distended proximal colon without transition point to suggest obstruction. This likely reflects an ileus. Fluid level is seen within the cecum which may reflect a diarrheal illness. RADIATION DOSE DELIVERED: 747.53mGy.cm Total DLP DATA REPOSITORY: All CT scans at this facility are submitted to the National Radiology Data Registry (NRDR) Dose Index Registry (DIR) with the [employer] ([employer]). RADIATION OPTIMIZATION: All CT scans at this facility use at least one of these dose optimization te chniques: automated exposure control; mA and/or kV adjustment per patient size (includes targeted exa ms where dose is matched to clinical indication); or iterative reconstruction.
--- NOTE | 2024-10-23 05:45 | RT.EKG_ITS ---
APPROVED REPORT Exam: Resting ECG Reason for Exam: heart burn Patient Location: E HR:59 bpm ECG Measurements Heart Rate 59 AXIS CA 127 P 31 QRSd 96 QRS 10 QT 497 T 23 QTc 495 Conclusion Sinus bradycardia...rate< 60 Probable left ventricular hypertrophy...multiple LVH criteria PHysician: no stemi
--- NOTE | 2024-10-23 06:00 | ED.GENADUL_ITS ---
Discharge Plan Discharge Details Chief Complaint: Abd Prob Clinical Impression: Acute hypokalemia, Ileus Primary Care Provider: Unknown,Unknown ED Provider: Boogie Hanley Home Meds and New Rx's Prescriptions: No Action methadone 10 mg/mL concentrate 100 mg PO DAILY Patient Comments: @ [facility], verified last dose 03/30/24 for 100mg alum-mag hydroxide-simeth [Mag-Al Plus] 200-200-20 mg/5 mL Suspension 30 ml PO Q2H PRN PRNQty: 3000 0RF simethicone 80 mg Tablet,Chewable 160 mg PO Q6H PRN PRN (Reason: Abdominal Pain) Qty: 30 0RF HPI General Date/Time Provider Initiated Documentation: 10/23/24 05:51 . HPI Narrative: 44-year-old male with a past medical history of known alcohol use, previous DVT, pancreatitis, hepatitis B&C, depression, polysubstance abuse currently on methadone, presents today for abdominal pain. He was recently admitted a few days ago for alcohol withdrawal, he had pancreatitis at that time. Patient was here for few days and then discharged on 10/21/2024. He states that he had some mild epigastric discomfort at that time, but over the last 2 days is notably worsening. He admits to nausea but no vomiting. He has been having only small amounts of liquidy stool. He states that he has not passed gas in the last day or so. He denies any fever or chills. Abdominal pain is described as my stomach is filled with gas and I cannot get it out. He denies any chest pain or shortness of breath. No other complaints at this time. No history of prior abdominal surgeries. Related Data Home Medications ?Medication ?Instructions ?Recorded ?Confirmed methadone 10 mg/mL oral concentrate 100 mg PO DAILY 10/10/23 10/23/24 aluminum-mag hydroxide-simethicone 30 ml PO Q2H PRN PRN #3,000 mL 10/21/24 10/23/24 200 mg-200 mg-20 mg/5 mL oral susp (Mag-Al Plus) simethicone 80 mg chewable tablet 160 mg (2 x 80 mg) PO Q6H PRN PRN 10/21/24 10/23/24 Abdominal Pain #30 tabs Previous Rx's ?Medication ?Instructions ?Recorded aluminum-mag hydroxide-simethicone 30 ml PO Q2H PRN PRN #3,000 mL 10/21/24 200 mg-200 mg-20 mg/5 mL oral susp (Mag-Al Plus) simethicone 80 mg chewable tablet 160 mg (2 x 80 mg) PO Q6H PRN PRN 10/21/24 Abdominal Pain #30 tabs Allergies Allergy/AdvReac Type Severity Reaction Status Date / Time No Known Allergies Allergy Verified 10/23/24 06:00 General Stated Complaint: Abd Prob RAVEN: 3 Exam Narrative Exam Narrative: 1.Const: Well-nourished, Well-developed, appearing stated age 2.Eyes: PERRL, no conjunctival injection, and symmetrical lids. 3.ENT: Atraumatic external nose and ears. Moist MM. Neck: Symmetric, trachea midline, No thyromegaly. 4.CVS: +S1/S2, Peripheral pulses 2+ and equal in all extremities. Brisk capil bill refill in all extremities. 5.RESP: Unlabored respiratory effort. Clear to auscultation bilaterally. No wheezes rales or rhonchi 6.GI: Somewhat distended abdomen, no significant bowel sounds are able to be heard. Mild generalized achiness throughout. No focal guarding or rebound. 7.MSK: Normocephalic/Atraumatic, Extremities w/o deformity or ttp No cyanosis or clubbing, Normal movement of all extremities 8.Skin: Warm, Dry. No rashes or lesions. 9.Neuro: call out clerk II-XII grossly intact. Sensation grossly intact, no focal neurologic deficits. 10.Psych: (AAO) x3. Appropriate mood and affect Course Vital Signs Vital signs: Vital Signs Temperature 37.1 C 10/23/24 05:51 Pulse 63 10/23/24 05:51 Respiratory Rate 20 10/23/24 05:51 Blood Pressure 165/95 H 10/23/24 05:51 Pulse Oximetry 98 10/23/24 05:51 Temperature 37.1 C 10/23/24 05:57 Temperature Source Temporal Artery Scan 10/23/24 05:57 Pulse 63 10/23/24 05:57 Respiratory Rate 20 10/23/24 05:57 Blood Pressure 165/95 H 10/23/24 05:57 Blood Pressure Position Supine 10/23/24 05:57 Pulse Oximetry 98 10/23/24 05:57 Oxygen Delivery Method Room Air 10/23/24 05:57 Oxygen Flow Rate 0 10/23/24 05:57 Pain Level 10 10/23/24 05:57 Medical Decision Making 44-year-old male with a past medical history of known alcohol use, previous DVT, pancreatitis, hepatitis B&C, depression, polysubstance abuse currently on methadone, presents today for abdominal pain. He was recently admitted a few days ago for alcohol withdrawal, he had pancreatitis at that time. Patient was here for few days and then discharged on 10/21/2024. He states that he had some mild epigastric discomfort at that time, but over the last 2 days is notably worsening. He admits to nausea but no vomiting. He has been having only small amounts of liquidy stool. He states that he has not passed gas in the last day or so. He denies any fever or chills. Abdominal pain is described as my stomach is filled with gas and I cannot get it out. He denies any chest pain or shortness of breath. No other complaints at this time. No history of prior abdominal surgeries. Exam demonstrates a distended abdomen with reduced bowel sounds, mild tenderness throughout. Vital signs demonstrate hypertension but no tachycardia. Patient did just have a CAT scan about a week or so ago for chest pain with all the vomiting, however symptomatology is notably different and new at this time. Differential includes obstruction, less likely volvulus, worsening pancreatitis or pseudocyst. Less likely perforation. Will get a CT scan, treat the patient's nausea with Reglan secondary to his chronically prolonged QT, monitor closely and reassess. 7:23 AM laboratory workup is returned, no white count no bandemia. Lactate normal. Potassium is low at 2.7, pending magnesium, electrolytes otherwise stable. Lipase downtrending from the 300s now to 216. CT scan continues to demonstrate necrotic pancreatitis without interval change. Patient also shows evidence of stool in the colon with gaseous distention suggestive of overt obstruction. Discussed the case with hospitalist Dr. Zelaya. He agrees for admission but did request surgical consult. We did contact Dr. Ramsay, who feels that this is community health representative of endorgan damage and that the patient should be admitted to the ICU for continued monitoring and transferred to a tertiary care facility for send monitoring. Patient remains hemodynamically stable at this time with no tachycardia, hypotension, lactate is normal, white count normal. We will reach out to [facility] for potential transfer. Patient will be signed out to my colleague Dr. Del Toro. FINDINGS: Lungs: Basilar scarring/atelectasis. Pleural spaces: Small left pleural effusion. Heart: Base of heart is unremarkable as visualized. Liver: Normal. No mass. Gallbladder and biliary ducts: Prominent gallbladder. Pancreas: Inflammatory stranding about the pancreatic head, proximal pancreatic body, pancreatic head, uncinate process demonstrate hypoenhancement indicative of necrosis. Spleen: Normal. No splenomegaly. Adrenal glands: Normal. No mass. Kidneys and ureters: Normal. No hydronephrosis. Stomach and bowel: Dilated proximal cecum with air-fluid level/liquid stool. Liquid stool demonstrated throughout the entirety of the colon. No significant surrounding i nflammatory change of the bowel. No evidence for ischemia or obstruction. Appendix: No evidence of appendicitis. Intraperitoneal space: Unremarkable. No free air. No significant fluid collection. Vasculature: Mild atherosclerotic disease. Lymph nodes: Unremarkable. No enlarged lymph nodes. Urinary bladder: Unremarkable as visualized. Reproductive: Unremarkable as visualized. Bones/joints: Scattered degenerative changes of the visualized osseous structures without acute or aggressive. Soft tissues: Anterior right lower quadrant fat soft tissue nodule with focus of anti dependent gas suggestive of medication administration. IMPRESSION: 1. Redemonstrated necrotic pancreatitis without interval development of rim enhancing collection or vascular associated phenomenon. 2. Liquid stool within the colon, proximal colon demonstrates gaseous distension without significant inflammatory change or concerning findings to suggest overt obstruction, likely community health representative of some superimposed diarrheal illness versus ileus at this time. Thank you for allowing us to participate in the care of your patient. Dictated and Authenticated by: Justin Taylor DO 10/23/2024 6:59 AM Eastern Time ([place] & [place]) Quality:SDOH Health Related Social Needs: No Data to Display PFSH All Active Problems (Updated 10/23/24 @ 08:05 by Boogie Hanley DO) Ileus (Acute) Acute hypokalemia (Acute) HTN (hypertension) (Chronic) Suicide ideation (Acute) Polysubstance abuse (Chronic) Opioid use disorder (Acute) Nicotine dependence (Acute) Opioid dependence on agonist therapy (Acute) Alcohol dependence (Chronic) Medical History Pancreatitis DVT (deep venous thrombosis) History of osteomyelitis Hepatitis B Hepatitis C Depression Alcohol withdrawal Polysubstance abuse Family History Other Alcohol use disorder Depression Social History Smoking/Tobacco Use Status: Current every day Tobacco Type: cigarettes Smoking risk assessment performed?: Yes Alcohol Intake: current Alcohol Intake frequency: 3 or more drinks per day Alcohol type: hard liquor Drug use: Daily Substance use type: marijuana Details: Pt states he last used marijuana 10/23/24 Last used ETOH about 10/16/24 Housing: house Do you feel safe at home: Yes Do you feel safe in your relationship?: Yes
[2024-10-23] MEDS: Metoclopramide 10 MG/2 ML VIAL IVP (06:18)
[2024-10-23 06:24] LABS: Lactate 1.1 mmol/L (0.6-1.4)
[2024-10-23 06:26] LABS: Abs Immature Grans 0.07 10^3/uL (0.0-0.06); Absolute Basophil Count 0.05 10^3/uL (0.0-0.2); Absolute Eosinophil Count 0.56 10^3/uL (0.0-0.7); Absolute Lymphocyte Count 1.56 10^3/uL (1.2-3.4); Absolute Monocyte Count 1.33 10^3/uL (0.1-0.8); Absolute Neutrophil Count 5.66 10^3/uL (1.2-6.7); Basophils % 0.5 %; Eosinophils % 6.1 %; HCT 36.8 % (40.0-50.0); HGB 12.5 g/dL (13.5-17.5); Immature Grans % 0.8 %; Lymphocytes % 16.9 %; MCH 31.6 pg (27.0-33.0); MCV 93 fL (80-95); MPV 9.6 fL (8.0-11.0); Monocytes % 14.4 %; Neutrophils % 61.3 %; Platelet Count 247 10^3/uL (130-400); RBC 3.95 10^6/uL (4.36-5.78); RDW 14.5 % (11.8-14.1); RDW-SD 50.3 fL; WBC 9.23 10^3/uL (4.4-10.8)
[2024-10-23] MEDS: Normal Saline - Diluent 50 ML VIAL IJ (06:30)
[2024-10-23] MEDS: Omnipaque 350 MG/ML 100 ML BTL IJ (06:31)
[2024-10-23 06:43] LABS: ALT 10 U/L (16-63); AST 19 U/L (15-37); Albumin 2.3 g/dL (3.4-5.0); Alkaline Phosphatase 70 U/L (46-116); Anion Gap 6.7 mmol/L (3-11); BUN 3 mg/dL (7-18); Bilirubin, Total 0.26 mg/dL (0.2-1.0); CO2 29.3 mmol/L (21.0-32.0); CREATININE 0.8 mg/dL (0.70-1.30); Chloride 103 mmol/L (98-107); Estimated GFR 111.22 (mL/min/1.73m2); Glucose 100 mg/dL (74-106); Lipase 216 U/L (<78); Sodium 139 mmol/L (136-145); Total Protein 6.5 g/dL (6.4-8.2)
[2024-10-23 06:48] LABS: Calcium 8.9 mg/dL (8.5-10.1)
[2024-10-23 06:52] LABS: Potassium 2.7 mmol/L (3.5-5.1)
--- NOTE | 2024-10-23 06:59 | DI.VRAD_ITS ---
PROCEDURE INFORMATION: Exam: CT Abdomen And Pelvis With Contrast Exam date and time: 10/23/2024 6:21 AM Age: 44 years old Clinical indication: Abdominal pain and other: Distension, abdominal pain TECHNIQUE: Imaging protocol: Computed tomography of the abdomen and pelvis with contrast. Contrast material: OMNI 350; Contrast volume: 75 ml; Contrast route: INTRAVENOUS (IV); COMPARISON: CT ABDOMEN PELVIS W 10/19/2024 8:36 AM FINDINGS: Lungs: Basilar scarring/atelectasis. Pleural spaces: Small left pleural effusion. Heart: Base of heart is unremarkable as visualized. Liver: Normal. No mass. Gallbladder and biliary ducts: Prominent gallbladder. Pancreas: Inflammatory stranding about the pancreatic head, proximal pancreatic body, pancreatic head, uncinate process demonstrate hypoenhancement indicative of necrosis. Spleen: Normal. No splenomegaly. Adrenal glands: Normal. No mass. Kidneys and ureters: Normal. No hydronephrosis. Stomach and bowel: Dilated proximal cecum with air-fluid level/liquid stool. Liquid stool demonstrated throughout the entirety of the colon. No significant surrounding inflammatory change of the bowel. No evidence for ischemia or obstruction. Appendix: No evidence of appendicitis. Intraperitoneal space: Unremarkable. No free air. No significant fluid collection. Vasculature: Mild atherosclerotic disease. Lymph nodes: Unremarkable. No enlarged lymph nodes. Urinary bladder: Unremarkable as visualized. Reproductive: Unremarkable as visualized. Bones/joints: Scattered degenerative changes of the visualized osseous structures without acute or aggressive. Soft tissues: Anterior right lower quadrant fat soft tissue nodule with focus of anti dependent gas suggestive of medication administration. IMPRESSION: 1. Redemonstrated necrotic pancreatitis without interval development of rim enhancing collection or vascular associated phenomenon. 2. Liquid stool within the colon, proximal colon demonstrates gaseous distension without significant inflammatory change or concerning findings to suggest overt obstruction, likely screening representative of some superimposed diarrheal illness versus ileus at this time. Dictated and Authenticated by: Justin Taylor MD. Ordering:ROGELIO Hyman MD
[2024-10-23 07:03] LABS: ETHANOL BLOOD < 3.0 mg/dL (<10)
[2024-10-23 07:29] LABS: Bilirubin Negative (Negative); Blood Negative (Negative); Clarity Clear (Clear); Glucose Negative (Negative); Ketones Negative (Negative); Leukocyte Esterase Negative (Negative); Nitrite Negative (Negative); Urobilinogen 0.2 mg/dL (Up to 0.2)
[2024-10-23] MEDS: POTASSIUM CHLORIDE 20 MEQ/100 ML BAG 50 MEQ IV_INF (07:40)
[2024-10-23] MEDS: HYDROmorphone 2 MG/ML SYR 1 MG IVP ×2 (07:47→08:16)
[2024-10-23] MEDS: LORazepam 2 MG/ML VIAL IVP (08:17)
--- NOTE | 2024-10-23 08:35 | ED.PROG_ITS ---
Date of service: 10/23/24 Time of Service: 08:38 Medical Decision Making Patient signed out to me pending callback from [facility]. Patient still having pain and vomiting, his QTc was just under 500 on EKG so avoiding droperidol and Zofran so I ordered IV lorazepam and another dose of [address] able. Still awaiting callback from [facility] but patient is now requesting to leave. He is alert and oriented x 4 and clinically sober and has decision-making capacity. He understands the risk of leaving including possible and permanent disability requiring lifelong rehab or residential placement, he accepts these risks and is choosing to leave AGAINST MEDICAL ADVICE. He was advised to continue to try and stop drinking alcohol, he was also advised that he should not be driving as he does had lorazepam. He voiced understanding of this. He was instructed that he can return anytime if he changes his mind and also advised to follow-up with his PCP as soon as possible Quality:[facility] Health Related Social Needs: No Data to Display Discharge Plan Disposition Patient Disposition: Against Medical Advice Condition: Serious Discharge Details Clinical Impression: Acute hypokalemia, Ileus Primary Care Provider: Unknown,Unknown ED Provider: Regino Del Toro [place] Meds and New Rx's Prescriptions: New metoclopramide HCl [Reglan] 10 mg tablet 10 mg PO Q6H PRN (Reason: nausea and vomiting) Qty: 30 0RF Continued methadone 10 mg/mL concentrate 100 mg PO DAILY Patient Comments: @ [facility], yissel last dose 03/30/24 for 100mg alum-mag hydroxide-simeth [Mag-Al Plus] 200-200-20 mg/5 mL Suspension 30 ml PO Q2H PRN PRNQty: 3000 0RF simethicone 80 mg Tablet,Chewable 160 mg PO Q6H PRN PRN (Reason: Abdominal Pain) Qty: 30 0RF Discharge Instructions Additional Instructions: You chose to leave AGAINST MEDICAL ADVICE. If you change your mind he can always return to the emergency department I would recommend following up with your primary care provider soon as possible Increase your dietary intake of potassium
--- NOTE | 2024-10-23 08:50 | NUR.NOTE ---
pt medicated with another 1mg dose of IV Dilaudid and 2mg IV Ativan at 0816 and 0817 along with 20meq of Potassium IV, pt educated on fall risk, call alicea in reach, pt then called out and requested to leave to go to [facility] to get his Methadone dose of 100mg, educated that we could call and verify his dose and get here, pt then called out a few min later dressed and stating he wanted to leave, educated to risks and recent med administration, MD Del Toro in room, pt stated he was leaving, informed he would be DUI of medication and that was a felony, pt asked if he could get a ride by MD, pt denied and stated 'I will be fine', again asked pt to verify that he understood he was leaving AM and was intending to drive willfully under the influence of drugs and pt stated 'I will be fine', informed pt that if he did injury to others while driving that would be a felony, pt stated 'I don't care', IV d/cx2, infusion of K for 2.7 incomplete, pt left at 0840 and was seen getting into red [employer] car and leaving at high rate of speed, [facility] called by this RN and notified of pt's disposition and possible location ([facility] parking lot), they stated they would f/u on it, principal statistical scientist and MD aware of pt leaving under the influence and risk involved, aware of this RN calling [facility] as his leaving was a risk to public at large.
== END 2024-10-23 08:47 | disposition left against medical advice (07) ==
PROVIDERS: Student in an Organized Health Care Education/Training Program; Emergency Provider Emergency Medicine
DX: K85.91 Acute pancreatitis with uninfected necrosis, unspecified (principal); E87.6 Hypokalemia; K56.7 Ileus, unspecified; J90 Pleural effusion, not elsewhere classified; R00.1 Bradycardia, unspecified; Z86.718 Personal history of other venous thrombosis and embolism; Z53.29 Procedure and treatment not carried out because of patient's decision for other reasons
CPT/HCPCS: 00123; 36415; 80053; 83690; 93005; 96365; 96375; 99285; 74177; 80320; 81003; 83605; 83735; 85025; 93010; J1171; J2060; J2765; J3480; J3490

== ENCOUNTER 2024-10-26 05:47 | Emergency (ER) | payer MEDICAID, SELFPAY ==
[2024-10-26 05:50] VITALS: BP 149/100; PULSE 75; RESP 16; TEMP 36.7; O2SAT 95
--- NOTE | 2024-10-26 06:00 | DI.RAD_ITS ---
Exam(s) XR ABDOMEN FLAT UPRIGHT EXAM: 2D digital imaging was performed. CLINICAL HISTORY: eval for obstruction. COMPARISON: CT CT ABDOMEN PELVIS W from 10/23/2024 TECHNIQUE: Supine and upright views of the abdomen were performed. FINDINGS: BOWEL GAS PATTERN: Distension transverse colon with fluid levels. Some decrease in prominence of the stent langford when compared with the prior CT. No small bowel dilatation visible. No free air. CALCIFICATIONS: No urinary tract calcifications. OSSEOUS STRUCTURES: Degenerative changes. Mild scoliosis. Visualized portions of chest: Hazy infiltrate right lung base. Soft tissues: Unremarkable. IMPRESSION: 1. Slight improvement in dilatation of colon with air-fluid levels. 2. Hazy infiltrate right lung base. 3. No free air. DATA REPOSITORY: RADIATION DOSE DELIVERED:
[2024-10-26] MEDS: Ketorolac 30 MG/ML VIAL IM (06:12)
[2024-10-26] MEDS: Dicyclomine 20 MG TAB PO (06:12)
[2024-10-26] MEDS: Trimethobenzamide 200 MG/2 ML VIAL IM (06:23)
--- NOTE | 2024-10-26 06:26 | W.ED.GENAD ---
Discharge Plan Disposition Patient Disposition: Home Condition: Good Discharge Details Clinical Impression: Abdominal cramping Primary Care Provider: Unknown,Unknown ED Provider: Boogie Hanley Home Meds and New Rx's Prescriptions: New dicyclomine 10 mg capsule 10 mg PO BID Qty: 4 0RF No Action methadone 10 mg/mL concentrate 100 mg PO DAILY Patient Comments: @ [facility], verified last dose 03/30/24 for 100mg alum-mag hydroxide-simeth [Mag-Al Plus] 200-200-20 mg/5 mL Suspension 30 ml PO Q2H PRN PRNQty: 3000 0RF simethicone 80 mg Tablet,Chewable 160 mg PO Q6H PRN PRN (Reason: Abdominal Pain) Qty: 30 0RF metoclopramide HCl [Reglan] 10 mg tablet 10 mg PO Q6H PRN (Reason: nausea and vomiting) Qty: 30 0RF Discharge Instructions Instructions: Abdominal Pain, Adult ED Additional Instructions: Please take a daily [id number] probiotic to help return your gut health to his normal status. Please take Pepto-Bismol daily to help with your gas. Please stick with a liquid diet for the next 5 to 7 days. If you notice any worsening of your symptoms, or any new symptoms such as vomiting, diarrhea, fever, chills, shortness of breath, chest pain, numbness, weakness, or fainting , please return immediately to the emergency department for reevaluation. Please follow up with your primary care provider as soon as possible for reassessment and reevaluation. As always, it was a pleasure participating in your medical care today. Discharge Data Discharge Date/Time-TO BE ENTERED AT DEPARTURE: 10/26/24 08:19 HPI General Date/Time Provider Initiated Documentation: 10/26/24 05:49. HPI Narrative: 44-year-old male with a past medical history of known alcohol use, previous DVT, pancreatitis, hepatitis B&C, depression, polysubstance abuse currently on methadone, presents today for abdominal pain. He was recently admitted a few days ago for alcohol withdrawal, he had pancreatitis at that time. Patient was here for few days and then discharged on 10/21/2024. He returned to the ER for reevaluation on 10/23/2024 and workup at that time showed normal lactate, improving lipase, mild hypokalemia which was treated. CT showed continued pancreatitis without abscess or interval change. There was some mild distention in his abdomen, but the patient had flatus and a bowel movement and did not have obstruction clinically. Unfortunately he left AMA before patient's consultation could be completed. However no care was changed post consultation. Patient went home, and states that he had been doing well, his pain notably improved. He had taken some NSAID therapy which did help, however over the last 12 to 24 hours he has had notable gas and flatus, and some continued abdominal cramping. He did have a large bowel movement just prior to arrival and states that it was brown and yellow in color with no blood. He has some nausea but no vomiting. He denies fever or chills. Pain is mild. Related Data Home Medications ?Medication ?Instructions ?Recorded ?Confirmed methadone 10 mg/mL oral concentrate 100 mg PO DAILY 10/10/23 10/26/24 aluminum-mag hydroxide-simethicone 30 ml PO Q2H PRN PRN #3,000 mL 10/21/24 10/26/24 200 mg-200 mg-20 mg/5 mL oral susp (Mag-Al Plus) simethicone 80 mg chewable tablet 160 mg (2 x 80 mg) PO Q6H PRN PRN 10/21/24 10/26/24 Abdominal Pain #30 tabs metoclopramide HCl 10 mg tablet 10 mg PO Q6H PRN nausea and 10/23/24 10/26/24 (Reglan) vomiting #30 tabs dicyclomine 10 mg capsule 10 mg PO BID #4 caps 10/26/24 Previous Rx's ?Medication ?Instructions ?Recorded aluminum-mag hydroxide-simethicone 30 ml PO Q2H PRN PRN #3,000 mL 10/21/24 200 mg-200 mg-20 mg/5 mL oral susp (Mag-Al Plus) simethicone 80 mg chewable tablet 160 mg (2 x 80 mg) PO Q6H PRN PRN 10/21/24 Abdominal Pain #30 tabs metoclopramide HCl 10 mg tablet 10 mg PO Q6H PRN nausea and 10/23/24 (Reglan) vomiting #30 tabs dicyclomine 10 mg capsule 10 mg PO BID #4 caps 10/26/24 Allergies Allergy/AdvReac Type Severity Reaction Status Date / Time No Known Allergies Allergy Verified 10/26/24 05:54 General Stated Complaint: Abd Prob RAVEN: 4 Exam Narrative Exam Narrative: 1.Const: Well-nourished, Well-developed, appearing stated age 2.Eyes: PERRL, no conjunctival injection, and symmetrical lids. 3.ENT: Atraumatic external nose and ears. Slightly dry MM. Neck: Symmetric, trachea midline, No thyromegaly. 4.CVS: +S1/S2, Peripheral pulses 2+ and equal in all extremities. Brisk capillary refill in all extremities. 5.RESP: Unlabored respiratory effort. Clear to auscultation bilaterally. No wheezes rales or rhonchi 6.GI: Soft, no guarding or rebound. No focal tenderness. Mild achiness. Bowel sounds are notably present. 7.MSK: Normocephalic/Atraumatic, Extremities w/o deformity or ttp No cyanosis or clubbing, Normal movement of all extremities 8.Skin: Warm, Dry. No rashes or lesions. 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 Sensation grossly intact, no focal neurologic deficits. 10.Psych: (AAO) x3. Appropriate mood and affect Course Vital Signs Vital signs: Vital Signs Temperature 36.7 C 10/26/24 05:50 Pulse 75 10/26/24 05:50 Respiratory Rate 16 10/26/24 05:50 Blood Pressure 149/100 H 10/26/24 05:50 Pulse Oximetry 95 10/26/24 05:50 Temperature 36.7 C 10/26/24 05:50 Temperature Source Temporal Artery Scan 10/26/24 05:50 Pulse 75 10/26/24 05:50 Respiratory Rate 16 10/26/24 05:50 Blood Pressure 149/100 H 10/26/24 05:50 Blood Pressure Position Sitting 10/26/24 05:50 Pulse Oximetry 95 10/26/24 05:50 Oxygen Delivery Method Room Air 10/26/24 05:50 Oxygen Flow Rate 0 10/26/24 05:50 Pain Level 10 10/26/24 05:50 Comment stated 07/22 pain 10/26/24 05:50 Medical Decision Making 44-year-old male with a past medical history of known alcohol use, previous DVT, pancreatitis, hepatitis B&C, depression, polysubstance abuse currently on methadone, presents today for abdominal pain. He was recently admitted a few days ago for alcohol withdrawal, he had pancreatitis at that time. Patient was here for few days and then discharged on 10/21/2024. He returned to the ER for reevaluation on 10/23/2024 and workup at that time showed normal lactate, improving lipase, mild hypokalemia which was treated. CT showed continued pancreatitis without abscess or interval change. There was some mild distention in his abdomen, but the patient had flatus and a bowel movement and did not have obstruction clinically. Unfortunately he left AMA before patient's consultation could be completed. However no care was changed post consultation. Patient went home, and states that he had been doing well, his pain notably improved. He had taken some NSAID therapy which did help, however over the last 12 to 24 hours he has had notable gas and flatus, and some continued abdominal cramping. He did have a large bowel movement just prior to arrival and states that it was brown and yellow in color with no blood. He has some nausea but no vomiting. He denies fever or chills. Pain is mild. Exam demonstrates a stable appearing male, no guarding or rebound, tachycardia or fever. Mild achiness on palpation of the abdomen. No guarding or rebound. No comfort distention to suggest severe obstruction or volvulus. He does have notable bowel sounds, and is having bowel movements and flatus which would not correlate with obstruction. Will get x-ray to evaluate for atypical bowel gas patterns, we will give Tigan for nausea control as he does have history of prolonged QT from his methadone use. We will give Bentyl for abdominal cramps. Will monitor closely and reassess. No epigastric tenderness to suggest severe pancreatitis. No focal left or right lower quadrant tenderness to suggest appendicitis or diverticulitis. 7:44 AM On reassessment patient is feeling much better. Abdominal pain and cramping is completely resolved. Nausea has resolved. He feels well and would like to go home. We are still pending x-ray read. Patient is having active flatus and normal bowel movements. Symptoms inconsistent clinically with obstruction. Patient will be discharged home with a few doses of Bentyl, recommendation for Pepto-Bismol and probiotic. I have extensively reviewed the treatment plan and discharge instructions with the patient. I have addressed all patient concerns at this time. The patient was made aware of what symptoms to monitor for that would warrant a return to the emergency department. Discussed the plan with the patient, they demonstrate verbal understanding and agreement with our assessment and plan at this time. The documentation in this chart was dictated using [employer] dictation software. Please excuse any dictation errors. X-ray results showed evidence of ileus. Symptoms inconsistent with obstruction as he is still having flatus and bowel movements. Patient remains feeling well and would like to go home. Patient's symptoms have resolved subjectively. Discussed red flags for which to return. FINDINGS: Gastrointestinal tract: Prominent gaseous distension of the transverse and ascending colon multiple air-fluid levels are noted on the upright projection. Paucity of small bowel gas. Intraperitoneal space: Normal. No free air. Bones/joints: Degenerative changes of the visualized osseous structures. Dextroconvex curvature of the lumbar spine with apex at L2-L3. IMPRESSION: Gaseous distension of the large bowel of similar caliber to prior cross-sectional comparison on 10/23/2024. Notable air-fluid levels are noted within the large bowel on the upright projection which can be seen in evolving obstruction/ileus. Correlate clinically. Quality:SDOH Health Related Social Needs: No Data to Display PFSH All Active Problems (Updated 10/26/24 @ 07:47 by Boogie Hanley DO) Abdominal cramping (Acute) Ileus (Acute) Acute hypokalemia (Acute) HTN (hypertension) (Chronic) Suicide ideation (Acute) Polysubstance abuse (Chronic) Opioid use disorder (Acute) Nicotine dependence (Acute) Opioid dependence on agonist therapy (Acute) Alcohol dependence (Chronic) Medical History Pancreatitis DVT (deep venous thrombosis) History of osteomyelitis Hepatitis B Hepatitis C Depression Alcohol withdrawal Polysubstance abuse Family History Other Alcohol use disorder Depression Social History Smoking/Tobacco Use Status: Current every day Tobacco Type: cigarettes Smoking risk assessment performed?: Yes Alcohol Intake: current Alcohol Intake frequency: 3 or more drinks per day Alcohol type: hard liquor Drug use: Daily Substance use type: marijuana Details: Pt states he last used marijuana 10/23/24 Last used ETOH about 10/16/24 Housing: house Do you feel safe at home: Yes Do you feel safe in your relationship?: Yes
--- NOTE | 2024-10-26 06:33 | W.PC.ACHO1 ---
Registration Status: Primary Language: Preferred Language: ED Information & Data Chief Complaint Abd Prob 10/26/24 06:30 Triage Note Pancreatitis has not gone 10/26/24 05:50 away, Abd pain pressure in abd, stated takes 800 mg of ibuprofen every 6 hours Medical / Surgical History (Last Reviewed 10/17/24 @ 21:35 by Leon Colindres) Alcohol withdrawal Depression DVT (deep venous thrombosis) Hepatitis B Hepatitis C History of osteomyelitis Pancreatitis Polysubstance abuse Most Recent Vital Signs Temperature 36.7 C 10/26/24 05:50 Temperature Source Temporal Artery Scan 10/26/24 05:50 Pulse 75 10/26/24 05:50 Respiratory Rate 16 10/26/24 05:50 Blood Pressure 149/100 H 10/26/24 05:50 Blood Pressure Position Sitting 10/26/24 05:50 Pulse Oximetry 95 10/26/24 05:50 Oxygen Delivery Method Room Air 10/26/24 05:50 Oxygen Flow Rate 0 10/26/24 05:50 Pain Level 10 10/26/24 05:50 Comment stated 07/22 pain 10/26/24 05:50 Allergies No Known Allergies Allergy (Verified 10/26/24 05:54) Precautions Isolation Standard precaution 10/26/24 05:56 Intake and Output - 24 Hour Total 10/26/24 05:47 thru 10/26/24 05:50 Weight 90.718 kg Falls Risk Assessment History of Falls No History 10/26/24 05:57 Contributing Factors No Factors 10/26/24 05:57 Ambulatory Aids Independent 10/26/24 05:57 Tubes/Lines None 10/26/24 05:57 Gait Evaluation No gait disturbance 10/26/24 05:57 Cognition No cognitive impairment 10/26/24 05:57 Fall Total Score 0 10/26/24 05:57 Level of Risk Standard/Low Risk 10/26/24 05:57 v v v v v v v v v Sending and/or Receiving Nurses: Please use comment section below to note any information pertinent to the patient hand-off not included above. Information / Comments: Report received from: report received from Magan REYNOLDS
[2024-10-26 07:32] VITALS: BP 155/96; PULSE 62; RESP 18; TEMP 36.8; O2SAT 98
--- NOTE | 2024-10-26 08:03 | DI.VRAD_ITS ---
PROCEDURE INFORMATION: Exam: XR Abdomen Exam date and time: 10/26/2024 6:30 AM Age: 44 years old Clinical indication: Abdominal pain; Generalized; Patient HX: Eval for obstruction TECHNIQUE: Imaging protocol: Radiologic exam of the abdomen. Views: 2 Views. Upright and supine views. COMPARISON: CT ABDOMEN PELVIS W 10/23/2024 6:21 AM FINDINGS: Gastrointestinal tract: Prominent gaseous distension of the transverse and ascending colon multiple air-fluid levels are noted on the upright projection. Paucity of small bowel gas. Intraperitoneal space: Normal. No free air. Bones/joints: Degenerative changes of the visualized osseous structures. Dextroconvex curvature of the lumbar spine with apex at L2-L3. IMPRESSION: Gaseous distension of the large bowel of similar caliber to prior cross-sectional comparison on 10/23/2024. Notable air-fluid levels are noted within the large bowel on the upright projection which can be seen in evolving obstruction/ileus. Correlate clinically. Dictated and Authenticated by: Justin Taylor MD. Ordering:ROGELIO Hyman MD
--- NOTE | 2024-10-26 08:03 | W.EDPROG ---
Date of service: 10/26/24 Time of Service: 08:03 Medical Decision Making I received 44-year-old male in the emergency department in setting of abdominal pain. Patient has been passing gas. His abdominal x-ray was read and showed gaseous distention of large bowel. He did have notable air-fluid levels. He feels improved following treatment. Given that he is neither obstipated nor constipated we will proceed with plan to discharge patient as he has no free air. Patient discharged with Dr. Hanley's discharge instructions. Quality:SDOH Health Related Social Needs: No Data to Display Discharge Plan Disposition Patient Disposition: Home Condition: Good Discharge Details Clinical Impression: Abdominal cramping Primary Care Provider: Unknown,Unknown ED Provider: Boogie Hanley Home Meds and New Rx's Prescriptions: New dicyclomine 10 mg capsule 10 mg PO BID Qty: 4 0RF No Action methadone 10 mg/mL concentrate 100 mg PO DAILY Patient Comments: @ [facility], verified last dose 03/30/24 for 100mg alum-mag hydroxide-simeth [Mag-Al Plus] 200-200-20 mg/5 mL Suspension 30 ml PO Q2H PRN PRNQty: 3000 0RF simethicone 80 mg Tablet,Chewable 160 mg PO Q6H PRN PRN (Reason: Abdominal Pain) Qty: 30 0RF metoclopramide HCl [Reglan] 10 mg tablet 10 mg PO Q6H PRN (Reason: nausea and vomiting) Qty: 30 0RF Discharge Instructions Instructions: Abdominal Pain, Adult ED Additional Instructions: Please take a daily [id number] probiotic to help return your gut health to his normal status. Please take Pepto-Bismol daily to help with your gas. Please stick with a liquid diet for the next 5 to 7 days. If you notice any worsening of your symptoms, or any new symptoms such as vomiting, diarrhea, fever, chills, shortness of breath, chest pain, numbness, weakness, or fainting , please return immediately to the emergency department for reevaluation. Please follow up with your primary care provider as soon as possible for reassessment and reevaluation. As always, it was a pleasure participating in your medical care today.
== END 2024-10-26 08:19 | disposition home or self-care (01) ==
PROVIDERS: Emergency Provider Student in an Organized Health Care Education/Training Program
DX: R10.9 Unspecified abdominal pain (principal); R11.0 Nausea; F11.20 Opioid dependence, uncomplicated; F17.210 Nicotine dependence, cigarettes, uncomplicated
CPT/HCPCS: 00123; 96372; 99284; 74019; J1885; J3250

== ENCOUNTER 2024-10-28 10:57 | Outpatient (CLI) | payer MEDICAID, SELFPAY ==
--- NOTE | 2024-10-28 10:43 | DI.RAD_ITS ---
Exam(s) XR ABDOMEN FLAT PLATE EXAM: 2D digital imaging was performed. CLINICAL HISTORY: Lower abd pain, R10.30; acute pancreatitis wo necrosis or infection, K85.90. COMPARISON: CT CT ABDOMEN PELVIS W from 10/23/2024 CR,XR XR ABDOMEN FLAT UPRIGHT from 10/26/2024 TECHNIQUE: Supine views of the abdomen performed. FINDINGS: BOWEL GAS PATTERN: Nondistended. Marked improvement in previously noted colonic distention. Normal quantity of stool. No dilated small bowel. No gastric distension. CALCIFICATIONS: No radiopaque calcifications. OSSEOUS STRUCTURES: Unremarkable for age. OTHER FINDINGS: No organomegaly. Lung bases clear. IMPRESSION: 1. Nonobstructive bowel gas pattern. Improvement in previously noted colonic dilatation. DATA REPOSITORY: RADIATION DOSE DELIVERED:
== END 2024-10-28 11:17 ==
PROVIDERS: Visit Provider Nurse Practitioner Family
DX: K85.90 Acute pancreatitis without necrosis or infection, unspecified
CPT/HCPCS: 74018

== ENCOUNTER 2024-10-28 15:55 | Outpatient (CLI) | payer MEDICAID, SELFPAY ==
[2024-10-28 12:05] LABS: Abs Immature Grans 0.02 10^3/uL (0.0-0.06); Absolute Basophil Count 0.05 10^3/uL (0.0-0.2); Absolute Eosinophil Count 0.38 10^3/uL (0.0-0.7); Absolute Lymphocyte Count 1.49 10^3/uL (1.2-3.4); Absolute Monocyte Count 0.32 10^3/uL (0.1-0.8); Absolute Neutrophil Count 5.24 10^3/uL (1.2-6.7); Basophils % 0.7 %; Eosinophils % 5.1 %; HCT 39.5 % (40.0-50.0); HGB 13.3 g/dL (13.5-17.5); Immature Grans % 0.3 %; Lymphocytes % 19.9 %; MCH 31.5 pg (27.0-33.0); MCHC 33.7 % (32.0-36.0); MCV 94 fL (80-95); MPV 9.6 fL (8.0-11.0); Monocytes % 4.3 %; Neutrophils % 69.7 %; Platelet Count 511 10^3/uL (130-400); RBC 4.22 10^6/uL (4.36-5.78); RDW 14.7 % (11.8-14.1); RDW-SD 50.8 fL
[2024-10-28 12:44] LABS: ALT 32 U/L (16-63); AST 56 U/L (15-37); Albumin 2.5 g/dL (3.4-5.0); Alkaline Phosphatase 130 U/L (46-116); Anion Gap 9.9 mmol/L (3-11); BUN 5 mg/dL (7-18); Bilirubin, Total 0.29 mg/dL (0.2-1.0); CO2 27.1 mmol/L (21.0-32.0); CREATININE 0.9 mg/dL (0.70-1.30); Chloride 102 mmol/L (98-107); Estimated GFR 107.33 (mL/min/1.73m2); Glucose 170 mg/dL (74-106); Lipase 75 U/L (<78); Sodium 139 mmol/L (136-145); Total Protein 7.3 g/dL (6.4-8.2)
[2024-10-28 12:50] LABS: Potassium 2.8 mmol/L (3.5-5.1)
== END 2024-10-28 15:56 | disposition home or self-care (01) ==
LOC: LBO 15:56
PROVIDERS: Visit Provider Nurse Practitioner Family
DX: K85.90 Acute pancreatitis without necrosis or infection, unspecified (principal)
CPT/HCPCS: 36415; 80053; 83690; 83735; 85025

== ENCOUNTER 2024-11-04 12:58 | Outpatient (CLI) | payer MEDICAID, SELFPAY ==
[2024-11-04 13:02] LABS: Abs Immature Grans 0.01 10^3/uL (0.0-0.06); Absolute Basophil Count 0.08 10^3/uL (0.0-0.2); Absolute Eosinophil Count 0.47 10^3/uL (0.0-0.7); Absolute Lymphocyte Count 1.74 10^3/uL (1.2-3.4); Absolute Monocyte Count 0.48 10^3/uL (0.1-0.8); Absolute Neutrophil Count 3.65 10^3/uL (1.2-6.7); Basophils % 1.2 %; Eosinophils % 7.3 %; HCT 39.6 % (40.0-50.0); Immature Grans % 0.2 %; Lymphocytes % 27.1 %; MCH 31.5 pg (27.0-33.0); MCHC 32.8 % (32.0-36.0); MCV 96 fL (80-95); MPV 8.8 fL (8.0-11.0); Monocytes % 7.5 %; Neutrophils % 56.7 %; Platelet Count 512 10^3/uL (130-400); RBC 4.13 10^6/uL (4.36-5.78); RDW 15.2 % (11.8-14.1); RDW-SD 53.5 fL; WBC 6.43 10^3/uL (4.4-10.8)
[2024-11-04 13:24] LABS: ALT 50 U/L (16-63); AST 73 U/L (15-37); Alkaline Phosphatase 138 U/L (46-116); Anion Gap 4.8 mmol/L (3-11); BUN 2 mg/dL (7-18); Bilirubin, Total 0.23 mg/dL (0.2-1.0); CO2 29.2 mmol/L (21.0-32.0); CREATININE 0.8 mg/dL (0.70-1.30); Calcium 9.2 mg/dL (8.5-10.1); Chloride 107 mmol/L (98-107); Estimated GFR 111.22 (mL/min/1.73m2); Glucose 74 mg/dL (74-106); Lipase 94 U/L (<78); Magnesium 2.1 mg/dL (1.8-2.4); Potassium 4.6 mmol/L (3.5-5.1); Sodium 141 mmol/L (136-145); Total Protein 7.4 g/dL (6.4-8.2)
== END 2024-11-04 12:59 | disposition home or self-care (01) ==
LOC: LBO 12:58
PROVIDERS: Visit Provider Nurse Practitioner Family
DX: K85.90 Acute pancreatitis without necrosis or infection, unspecified (principal)
CPT/HCPCS: 36415; 80048; 80053; 83690; 83735; 85025

== ENCOUNTER 2024-12-23 14:48 | Inpatient (IN) | payer MEDICAID, SELFPAY ==
[2024-12-23] VITALS (28 sets, daily range): BP systolic 131–179; BP diastolic 69–97; PULSE 54–66; RESP 5–28; TEMP 36.4–37.1; O2SAT 86–95
--- NOTE | 2024-12-23 14:45 | RT.EKG_ITS ---
APPROVED REPORT Exam: Resting ECG Reason for Exam: SOB Patient Location: E HR:57 bpm ECG Measurements Heart Rate 57 AXIS WV 120 P 35 QRSd 113 QRS 62 QT 607 T 86 QTc 593 Conclusion Sinus bradycardia, rate 57 Prolonged QTc Broad T waves with <1mm elevation leads II, III, aVF, and precordial leads, new from priors. No STEMI
--- NOTE | 2024-12-23 15:00 | DI.RAD_ITS ---
Exam(s) XR CHEST 2V PA LATERAL EXAM: XR CHEST 2V PA LATERAL CLINICAL HISTORY: SOB, hypoxia. TECHNIQUE: 2D digital imaging was performed. COMPARISON: CR XR CHEST 2V PA LATERAL from 10/08/[address] ABDOMEN PELVIS W from 10/23/2024 CR XR ABDOMEN FLAT PLATE from 10/28/2024 FINDINGS: 2 views: Heart size is upper normal. The mediastinum is not widened. There has been significant increase in the amount of infiltrate in both lung santamaria.. There is now i nfiltrate bilaterally involving all lobes, most prominent throughout the left lung. Lesser amount of the same noted in the right lung. No obvious pleural effusions. IMPRESSION: Significant increase in amount of bilateral lung infiltrates, most prominent on the left side involvi ng all lobes. Most probably infectious/pneumonia. DATA REPOSITORY: RADIATION DOSE DELIVERED:
--- NOTE | 2024-12-23 15:09 | W.ED.GENAD ---
Discharge Plan Disposition Patient Disposition: Admit to [facility] Condition: Stable Discharge Details Chief Complaint: SOB/SuddenOnset Clinical Impression: Multifocal pneumonia, Nicotine dependence, HTN (hypertension), Acute hypoxic respiratory failure Primary Care Provider: Yulia Miller ED Provider: Pat Valdovinos Home Meds and New Rx's Prescriptions: No Action methadone 10 mg/mL concentrate 100 mg PO DAILY Patient Comments: @ [facility], verified last dose 03/30/24 for 100mg dicyclomine 10 mg capsule 10 mg PO BID Qty: 4 0RF alum-mag hydroxide-simeth [Mag-Al Plus] 200-200-20 mg/5 mL Suspension 30 ml PO Q2H PRN PRNQty: 3000 0RF simethicone 80 mg Tablet,Chewable 160 mg PO Q6H PRN PRN (Reason: Abdominal Pain) Qty: 30 0RF metoclopramide HCl [Reglan] 10 mg tablet 10 mg PO Q6H PRN (Reason: nausea and vomiting) Qty: 30 0RF HPI General Mode of arrival: ambulatory. Date/Time Provider Initiated Documentation: 12/23/24 14:49. Limitations to Documentation: no limitations. Information obtained by: patient and old records reviewed. HPI Narrative: HPI: This is a 44-year-old male patient with a past medical history significant for polysubstance use disorder, hypertension, presenting for evaluation of shortness of breath. The patient reports that for the last 4 days he has had difficulty catching his breath, so much so that he has had to stop smoking cigarettes. He states that he had a sudden worsening today, prompting him to seek care. He has a cough that has been productive of clear sputum, denies chest pain. States that he feels like his breath catches in his throat. No history of asthma or reactive airway disease, no history of heart failure. Endorses a history of DVT for 5 years ago for which he was on Eliquis, has not been on that medication in several years. Denies feeling any unilateral calf swelling or tenderness at this time. His most concerned that he is developing pneumonia. Exam: Gen: Awake and alert, in notable distress HEENT: Non-icteric sclera Neck: Supple Lungs: Increased work of breathing with tachypnea, lung sounds clear and equal with the exception of the left base which has some focal wheezes. Hypoxia on room air to 86%. CV: Appears well perfused, heart with regular rate and rhythm, strong distal pulses Abdomen: Non-distended, soft MSK: Moves 4 extremities without apparent limitation in ROM, no unilateral calf swelling or tenderness, no peripheral edema Skin: Visualized skin without rashes, cyanosis. Neuro: Normal Gait, no obvious focal deficits or facial asymmetry. Speaks in full, clear sentences. Psych: Appropriate for situation. MDM: This is a 44-year-old male patient presenting for evaluation of shortness of breath. Differential includes but is not limited to viral URI, pneumonia, bronchitis. Certainly considered pulmonary embolism given his history of thromboembolic disease, patient is moderate risk by Wells criteria (likelihood of diagnosis, history) and for this reason would meet criteria for initial D-dimer testing. He has no heart history to suggest pulmonary edema, pleural effusion, and no diffuse wheezing or history of reactive airway disease to suggest exacerbation. No chest pain to suggest ACS, pericarditis or myocarditis. We obtained an EKG, which I reviewed and shows a sinus bradycardia with a rate of 57. He does have a prolonged QTc, as well as some less than 1 mm elevations in diffuse leads including 2, 3, aVF, in the precordial leads. This pattern is consistent with benign early repol, though I do note that it is a change from his most recent EKG. we will obtain a Fluvid, chest x-ray, and laboratory studies to include CBC, CMP, magnesium, troponin, and D-dimer. ED Course: I reviewed the patient's laboratory studies, which showed a white blood cell count of 11.9, no anemia or thrombocytopenia. Chemistry panel shows no electrolyte derangements, kidney dysfunction, or liver disease. Troponin is less than 4, BNP is low, and the Fluvid is negative. I independently reviewed the patient's chest x-ray, which shows a multifocal pneumonia. He is requiring 4 L/min of supplemental oxygen to maintain sats greater than 90%. Provided the patient with a dose of ceftriaxone and doxycycline, given my concern for his prolonged QTc. The D-dimer is 566, by years criteria, in this patient with no DVT symptoms, hemoptysis, and in whom PE is no longer the primary diagnosis, this is considered a negative result and PE is ruled out. I reached out to our hospitalist team, who have graciously accepted this patient for admission to their service for hypoxic respiratory failure in the setting of multifocal pneumonia. Remained hemodynamically appropriate, transferred from our care without incident. Pat Valdovinos MD Related Data Home Medications ?Medication ?Instructions ?Recorded ?Confirmed methadone 10 mg/mL oral concentrate 100 mg PO DAILY 10/10/23 12/23/24 aluminum-mag hydroxide-simethicone 30 ml PO Q2H PRN PRN #3,000 mL 10/21/24 12/23/24 200 mg-200 mg-20 mg/5 mL oral susp (Mag-Al Plus) simethicone 80 mg chewable tablet 160 mg (2 x 80 mg) PO Q6H PRN PRN 10/21/24 12/23/24 Abdominal Pain #30 tabs metoclopramide HCl 10 mg tablet 10 mg PO Q6H PRN nausea and 10/23/24 12/23/24 (Reglan) vomiting #30 tabs dicyclomine 10 mg capsule 10 mg PO BID #4 caps 10/26/24 12/23/24 Previous Rx's ?Medication ?Instructions ?Recorded aluminum-mag hydroxide-simethicone 30 ml PO Q2H PRN PRN #3,000 mL 10/21/24 200 mg-200 mg-20 mg/5 mL oral susp (Mag-Al Plus) simethicone 80 mg chewable tablet 160 mg (2 x 80 mg) PO Q6H PRN PRN 10/21/24 Abdominal Pain #30 tabs metoclopramide HCl 10 mg tablet 10 mg PO Q6H PRN nausea and 10/23/24 (Reglan) vomiting #30 tabs dicyclomine 10 mg capsule 10 mg PO BID #4 caps 10/26/24 Allergies Allergy/AdvReac Type Severity Reaction Status Date / Time No Known Allergies Allergy Verified 12/23/24 14:59 General Stated Complaint: SOB/SuddenOnset RAVEN: 2 Course Vital Signs Vital signs: Vital Signs Temperature 36.7 C 12/23/24 14:53 Pulse 59 L 12/23/24 14:53 Respiratory Rate 20 12/23/24 14:53 Blood Pressure 179/97 H 12/23/24 14:53 Pulse Oximetry 86 L 12/23/24 14:53 Temperature 36.7 C 12/23/24 14:53 Temperature Source Oral 12/23/24 14:53 Pulse 59 L 12/23/24 14:53 Respiratory Rate 20 12/23/24 14:53 Blood Pressure 179/97 H 12/23/24 14:53 Blood Pressure Position Sitting 12/23/24 14:53 Pulse Oximetry 86 L 12/23/24 14:53 Oxygen Delivery Method Room Air 12/23/24 14:53 Oxygen Flow Rate 0 12/23/24 14:53 Medical Decision Making Quality:SDOH Health Related Social Needs: No Data to Display Critical Care Time Critical Care Time Critical Care Time: Yes Total Critical Care Time: 35 Attestation: Upon my evaluation, this patient had a high probability of imminent or life-threatening deterioration due to hypoxic respiratory failure, which required my direct attention, intervention, and personal management. I have personally provided 35 minutes of critical care time exclusive of time spent on separately billable procedures. Time includes review of laboratory data, radiology results, discussion with consultants, and monitoring for potential decompensation. Interventions were performed as documented above. Pat Valdovinos MD [facility] All Active Problems (Updated 12/23/24 @ 16:25 by Pat Valdovinos MD) Acute hypoxic respiratory failure (Acute) Multifocal pneumonia (Acute) Abdominal cramping (Acute) Ileus (Acute) Acute hypokalemia (Acute) HTN (hypertension) (Chronic) Suicide ideation (Acute) Polysubstance abuse (Chronic) Opioid use disorder (Acute) Nicotine dependence (Acute) Opioid dependence on agonist therapy (Acute) Alcohol dependence (Chronic) Medical History Pancreatitis DVT (deep venous thrombosis) History of osteomyelitis Hepatitis B Hepatitis C Depression Alcohol withdrawal Polysubstance abuse Family History Other Alcohol use disorder Depression Social History Smoking/Tobacco Use Status: Current every day Tobacco Type: cigarettes Smoking risk assessment performed?: Yes Alcohol Intake: current Alcohol Intake frequency: 3 or more drinks per day Alcohol type: hard liquor Drug use: Daily Substance use type: marijuana Details: Pt states he last used marijuana 10/23/24 Last used ETOH about 10/16/24 Housing: house Do you feel safe at home: Yes Do you feel safe in your relationship?: Yes PAWSS Have you Been Recently Intoxicated or Drunk Within the Last 30 days?: No Have you Ever Experienced Previous Episodes of Alcohol Withdrawal?: No Have you ever Experienced Withdrawal Seizures?: No Have you ever Experienced Delirium Tremens(DT)s?: No Have you ever undergone Alcohol Rehabilitation Treatment (i.e, inpt ot outpatient treatment programs)?: No Have you ever Experienced Blackouts?: No Have you ever Combined Alcohol with other Downers within the last 90 days?: No Have you ever Combined Alcohol with any other Substance of Abuse during the last 90 days?: No Positive Blood Alcohol level on Presentation? [PCS.BAL]: No Evidence of Increased Autonomic Activity (i.e. HR>120, tremor, sweating, agitation, nausea)?: No Result: 0
[2024-12-23 15:15] LABS: Abs Immature Grans 0.06 10^3/uL (0.0-0.06); Absolute Basophil Count 0.05 10^3/uL (0.0-0.2); Absolute Eosinophil Count 0.35 10^3/uL (0.0-0.7); Absolute Lymphocyte Count 1.21 10^3/uL (1.2-3.4); Absolute Neutrophil Count 9.42 10^3/uL (1.2-6.7); Basophils % 0.4 %; Eosinophils % 2.9 %; HCT 47.2 % (40.0-50.0); HGB 15.6 g/dL (13.5-17.5); Immature Grans % 0.5 %; Lymphocytes % 10.1 %; MCHC 33.1 % (32.0-36.0); MCV 94 fL (80-95); MPV 8.7 fL (8.0-11.0); Monocytes % 7.5 %; Neutrophils % 78.6 %; Platelet Count 383 10^3/uL (130-400); RBC 5.04 10^6/uL (4.36-5.78); RDW 14.1 % (11.8-14.1); RDW-SD 48.2 fL; WBC 11.99 10^3/uL (4.4-10.8)
[2024-12-23 15:43] LABS: ALT 14 U/L (16-63); AST 24 U/L (15-37); Albumin 2.9 g/dL (3.4-5.0); Alkaline Phosphatase 104 U/L (46-116); Anion Gap 11.2 mmol/L (3-11); BUN 5 mg/dL (7-18); Bilirubin, Total 0.5 mg/dL (0.2-1.0); CO2 27.8 mmol/L (21.0-32.0); CREATININE 0.8 mg/dL (0.70-1.30); Calcium 9.7 mg/dL (8.5-10.1); Chloride 101 mmol/L (98-107); Estimated GFR 111.22 (mL/min/1.73m2); Glucose 128 mg/dL (74-106); NT-proBNP 73 pg/mL (<300); Sodium 140 mmol/L (136-145); Total Protein 8.6 g/dL (6.4-8.2)
[2024-12-23 15:44] LABS: Troponin I < 4 ng/L (<or=76)
[2024-12-23 15:53] LABS: COVID-19 PCR Negative (Negative); Influenza A PCR Negative (Negative); Influenza B PCR Negative (Negative); RSV PCR Negative (Negative)
[2024-12-23 15:57] LABS: D-Dimer 566 ng/mlFEU (<500)
[2024-12-23 16:11] LABS: Source Nasopharynx
--- NOTE | 2024-12-23 16:26 | W.PM.HP.N ---
Date of service: 12/23/24 Time of Service: 16:26 Assessment and Plan Assessment and plan (1) Multifocal pneumonia: Status: Acute Assessment and plan: - As seen on chest x-ray -Patient does not meet sepsis criteria as he was afebrile, did not have an elevated white blood cell count, was not tachycardic and was only mildly tachypneic with the highest respiratory rate documented as 28 -Was started on ceftriaxone doxycycline in the emergency department, will continue (2) Acute hypoxic respiratory failure: Status: Acute Assessment and plan: - Presumed secondary to multifocal pneumonia as noted above -Patient's respiratory status worsens or does not significantly improve, will consider CTA as patient does have a history of provoked DVT about 5 years ago (though chest x-ray shows convincing enough picture for significant multifocal pneumonia at this time) (3) Opioid dependence on agonist therapy: Status: Acute Assessment and plan: - Will continue home methadone normal dose once verified by pharmacy History of Present Illness History of Present Illness Chief Complaint: SOB Narrative: 44-year-old male with a past medical history of polysubstance use, hypertension who presented to the emergency department with shortness of breath. Patient states that over the last 4 days he has had difficulty with shortness of breath and catching his breath the point where he has stopped smoking cigarettes. He presented the emergency department because he believes it was significantly worse earlier in the day. He notes that his cough has been productive of sputum but he denies any chest pain, headache, lightheadedness, dizziness, fevers, nausea vomiting or diarrhea. In the emergency department the patient was noted as having normal vital signs with the exception of an oxygen saturation down to 86% necessitating being placed on 4 L nasal cannula to maintain oxygen saturation greater than 92%. While his CBC and CMP were unremarkable, patient did have a chest x-ray that showed significant bilateral multifocal pneumonia. Patient was also checked for pancreatitis as he has a history of necrotizing pancreatitis but he did not have any abdominal pain nor did he have an elevated lipase, additionally his lactic acid was within normal limits. At which time patient was started on ceftriaxone and doxycycline in emergency room physician paged hospitalist for admission for patient with multifocal pneumonia and acute hypoxic respiratory failure. Review of Systems All systems reviewed & are unremarkable except as noted in HPI and below PFSH All Active Problems (Updated 12/23/24 @ 16:25 by Pat Valdovinos MD) Acute hypoxic respiratory failure (Acute) Multifocal pneumonia (Acute) Abdominal cramping (Acute) Ileus (Acute) Acute hypokalemia (Acute) HTN (hypertension) (Chronic) Suicide ideation (Acute) Polysubstance abuse (Chronic) Opioid use disorder (Acute) Nicotine dependence (Acute) Opioid dependence on agonist therapy (Acute) Alcohol dependence (Chronic) Medical History Pancreatitis DVT (deep venous thrombosis) History of osteomyelitis Hepatitis B Hepatitis C Depression Alcohol withdrawal Polysubstance abuse Family History Other Alcohol use disorder Depression Social History Smoking/Tobacco Use Status: Current every day Tobacco Type: cigarettes Smoking risk assessment performed?: Yes Alcohol Intake: current Alcohol Intake frequency: 3 or more drinks per day Alcohol type: hard liquor Drug use: Daily Substance use type: marijuana Details: Pt states he last used marijuana 10/23/24 Last used ETOH about 10/16/24 Housing: house Do you feel safe at home: Yes Do you feel safe in your relationship?: Yes Meds Allergies and Home Medications Allergies Allergy/AdvReac Type Severity Reaction Status Date / Time No Known Allergies Allergy Verified 12/23/24 14:59 Home Medications ?Medication ?Instructions ?Recorded ?Confirmed ?Type methadone 10 mg/mL oral concentrate 100 mg PO DAILY 10/10/23 12/23/24 History aluminum-mag hydroxide-simethicone 30 ml PO Q2H PRN PRN #3,000 mL 10/21/24 12/23/24 Rx 200 mg-200 mg-20 mg/5 mL oral susp (Mag-Al Plus) simethicone 80 mg chewable tablet 160 mg (2 x 80 mg) PO Q6H PRN PRN 10/21/24 12/23/24 Rx Abdominal Pain #30 tabs metoclopramide HCl 10 mg tablet 10 mg PO Q6H PRN nausea and 10/23/24 12/23/24 Rx (Reglan) vomiting #30 tabs dicyclomine 10 mg capsule 10 mg PO BID #4 caps 10/26/24 12/23/24 Rx Exam Narrative Exam Narrative: Fatigued appearing gentleman laying in bed in no acute distress, ANO x 4, heart rate mildly bradycardic with rates in the mid 50s and regular rhythm, no murmurs, lungs with diffuse coarse breath sounds in bilateral upper and lower lobes, abdomen soft, nontender, nondistended Results Labs 12/23/24 15:05 12/23/24 15:05 Labs: Laboratory Results - last 24 hr 12/23/24 12/23/24 12/23/24 15:05 16:04 18:04 WBC 11.99 H RBC 5.04 Hgb 15.6 Hct 47.2 MCV 94 MCH 31.0 MCHC 33.1 RDW 14.1 Plt Count 383 MPV 8.7 Immature Gran % 0.5 Neutrophils % 78.6 Lymphocytes % 10.1 Monocytes % 7.5 Eosinophils % 2.9 Basophils % 0.4 Nucleated RBC % 0.0 Absolute Neutrophils 9.42 H Absolute Lymphocytes 1.21 Absolute Monocytes 0.90 H Absolute Eosinophils 0.35 Absolute Basophils 0.05 D-Dimer 566 H Sodium 140 Potassium 4.0 Chloride 101 Carbon Dioxide 27.8 Anion Gap 11.2 H BUN 5 L Creatinine 0.8 Est GFR (CKD-EPI 2020) 111.22 Glucose 128 H Calcium 9.7 Magnesium 2.0 Total Bilirubin 0.5 AST 24 ALT 14 L Alkaline Phosphatase 104 Troponin I < 4 Cancelled Cancelled NT-Pro-B Natriuret Pep 73 Total Protein 8.6 H Albumin 2.9 L COVID-19 Source Nasopharynx SARS-CoV-2 (PCR) Negative Influenza Type A (PCR) Negative Influenza Type B (PCR) Negative RSV (PCR) Negative Last Vital Signs Temp 98.1 F 12/23/24 14:53 Pulse 54 L 12/23/24 16:20 Resp 24 12/23/24 16:20 BP 149/81 H 12/23/24 15:16 Pulse Ox 91 L 12/23/24 16:20 PAWSS Have you Been Recently Intoxicated or Drunk Within the Last 30 days?: No Have you Ever Experienced Previous Episodes of Alcohol Withdrawal?: No Have you ever Experienced Withdrawal Seizures?: No Have you ever Experienced Delirium Tremens(DT)s?: No Have you ever undergone Alcohol Rehabilitation Treatment (i.e, inpt ot outpatient treatment programs)?: No Have you ever Experienced Blackouts?: No Have you ever Combined Alcohol with other Downers within the last 90 days?: No Have you ever Combined Alcohol with any other Substance of Abuse during the last 90 days?: No Positive Blood Alcohol level on Presentation? [PCS.BAL]: No Evidence of Increased Autonomic Activity (i.e. HR>120, tremor, sweating, agitation, nausea)?: No Result: 0 Time Spent Time spent with Patient: >75 minutes Time was spent: preparing to see the patient(eg.review tests), obtaining and/or reviewing separately otained hiistory, ordering medications,tests, procedures, referring, communicating with other health neonatal intensive care unit nurse, indepentently interpreting results, counseling the patient and care coordination
[2024-12-23] MEDS: DOXYCYCLINE 100 MG in Normal Saline 100 ML IVPB (16:32)
[2024-12-23] MEDS: cefTRIAXone 1 GM/50 ML BAG IVPB (16:32)
[2024-12-23 17:09] LABS: Lipase 13 U/L (<78)
--- NOTE | 2024-12-23 18:08 | W.PC.ACHO ---
Registration Status: Primary Language: Preferred Language: ED Information & Data Chief Complaint SOB/SuddenOnset 12/23/24 15:11 Triage Note PT reports that he feels 12/23/24 14:53 like he cant breath when he stands starting yesterday. Woke up today with extreme increase in symptoms. states he could barely make it to his car. Has had clotting issues in his past. Medical / Surgical History (Last Reviewed 10/17/24 @ 21:35 by Leon Colindres) Pancreatitis DVT (deep venous thrombosis) History of osteomyelitis Hepatitis B Hepatitis C Depression Alcohol withdrawal Polysubstance abuse Most Recent Vital Signs Temperature 37.1 C 12/23/24 17:36 Temperature Source Temporal Artery Scan 12/23/24 17:36 Pulse 54 L 12/23/24 17:36 Pulse Rhythm Regular 12/23/24 17:16 Pulse 55 L 12/23/24 16:50 Respiratory Rate 20 12/23/24 17:36 Respiratory Effort Short of Breath, Labored 12/23/24 17:16 Respiratory Depth Shallow 12/23/24 17:16 Respiratory Pattern Normal 12/23/24 17:16 Blood Pressure 133/69 12/23/24 17:36 Blood Pressure Mean 99 12/23/24 16:46 Blood Pressure Position Sitting 12/23/24 14:53 Pulse Oximetry 93 12/23/24 17:36 Oxygen Delivery Method Nasal Cannula 12/23/24 17:36 Oxygen Flow Rate 4 12/23/24 17:36 Pain Level 5 12/23/24 17:36 Comment pain mid back through to abdomen 12/23/24 17:36 Comment 4 12/23/24 16:46 Allergies No Known Allergies Allergy (Verified 12/23/24 14:59) IV IV Catheter Type [Right Saline Lock Antecubital] IV Catheter Gauge [Right 18 Antecubital] Diet Orders Category Date Time Status Regular/Normal [DIET] Nutrition 12/23/24 Dinner Active Diagnostics 12/23/24 12/23/24 12/23/24 Range/Units 18:04 16:04 15:05 WBC 11.99 H (4.4-10.8) 10^3/uL RBC 5.04 (4.36-5.78) 10^6/uL Hgb 15.6 (13.5-17.5) g/dL Hct 47.2 (40.0-50.0) % MCV 94 (80-95) fL MCH 31.0 (27.0-33.0) pg MCHC 33.1 (32.0-36.0) % RDW 14.1 (11.8-14.1) % Plt Count 383 (130-400) 10^3/uL MPV 8.7 (8.0-11.0) fL Immature Gran % 0.5 % Neutrophils % 78.6 % Lymphocytes % 10.1 % Monocytes % 7.5 % Eosinophils % 2.9 % Basophils % 0.4 % Nucleated RBC % 0.0 (0.0-0.3) % Absolute Neutrophils 9.42 H (1.2-6.7) 10^3/uL Absolute Lymphocytes 1.21 (1.2-3.4) 10^3/uL Absolute Monocytes 0.90 H (0.1-0.8) 10^3/uL Absolute Eosinophils 0.35 (0.0-0.7) 10^3/uL Absolute Basophils 0.05 (0.0-0.2) 10^3/uL D-Dimer 566 H (<500) ng/mlFEU Sodium 140 (136-145) mmol/L Potassium 4.0 (3.5-5.1) mmol/L Chloride 101 (98-107) mmol/L Carbon Dioxide 27.8 (21.0-32.0) mmol/L Anion Gap 11.2 H (3-11) mmol/L BUN 5 L (7-18) mg/dL Creatinine 0.8 (0.70-1.30) mg/dL Est GFR (CKD-EPI 2020) 111.22 (mL/min/1.73m2) Glucose 128 H (74-106) mg/dL Calcium 9.7 (8.5-10.1) mg/dL Magnesium 2.0 mg/dL Total Bilirubin 0.5 (0.2-1.0) mg/dL AST 24 (15-37) U/L ALT 14 L (16-63) U/L Alkaline Phosphatase 104 (46-116) U/L Troponin I Cancelled Cancelled < 4 (<or=76) ng/L NT-Pro-B Natriuret Pep 73 (<300) pg/mL Total Protein 8.6 H (6.4-8.2) g/dL Albumin 2.9 L (3.4-5.0) g/dL Lipase 13 (<78) U/L Ethyl Alcohol 11.0 H (<10) mg/dL COVID-19 Source Nasopharynx SARS-CoV-2 (PCR) Negative (Negative) Influenza Type A (PCR) Negative (Negative) Influenza Type B (PCR) Negative (Negative) RSV (PCR) Negative (Negative) Intake and Output - 24 Hour Total 12/23/24 14:48 thru 12/23/24 17:16 Intake Total 50 Balance 50 Weight 88.1 kg Intake: IV 50 Other: Urine Appearance Clear Falls Risk Assessment History of Falls No History 12/23/24 17:16 Contributing Factors No Factors 12/23/24 17:16 Ambulatory Aids Independent 12/23/24 17:16 Tubes/Lines None 12/23/24 17:16 Gait Evaluation No gait disturbance 12/23/24 17:16 Cognition No cognitive impairment 12/23/24 17:16 Fall Total Score 0 12/23/24 17:16 Level of Risk Standard/Low Risk 12/23/24 17:16 Problems (Last Reviewed 10/17/24 @ 21:35 by Leon Colindres) Acute hypoxic respiratory failure (Acute) Multifocal pneumonia (Acute) Opioid dependence on agonist therapy (Acute) v v v v v v v v v Sending and/or Receiving Nurses: Please use comment section below to note any information pertinent to the patient hand-off not included above. Information / Comments: Report received from: Received report from Lily Aguilar RN at 4:46pm, pt to the M/S floor at 5:06pm
[2024-12-23] MEDS: FLUoxetine 20 MG CAP PO (18:29)
[2024-12-23] MEDS: buPROPion 75 MG TAB PO (18:57)
[2024-12-23] MEDS: Normal Saline Flush 10 ML SYR IVP (20:41)
[2024-12-23] MEDS: Dicyclomine 10 MG CAP PO (20:41)
[2024-12-23] MEDS: guaiFENesin 600 MG TABCR PO (21:15)
[2024-12-23] MEDS: Albuterol/Ipratropium 3 ML UPD VIAL UPD (21:25)
--- NOTE | 2024-12-23 21:55 | NUR.NOTE ---
At time of assessment pt was noted to have increased work of breathing with endorsed SOB, feeling of chocking. O2 sat checked, pt sats at 87% on 4L/min NC. applied high flow NC up to 8L/min to maintain sats at 91%. Pts lung with inspiratory and expiratory wheezes throughout, rochi throughout. Pt attempted to deep breath and cough however it triggered an episode of increased SOB. elevated pts HOB to help improve work of breathing. Pt endorsed feeling better with HOB elevated and increased O2 supply. Alerted provider, new orders for neb treatments and mucinex ordered. RT at bedside administering neb.
[2024-12-24] VITALS (51 sets, daily range): BP systolic 107–135; BP diastolic 65–88; PULSE 47–73; RESP 2–27; TEMP 35.8–37.4; O2SAT 82–98
[2024-12-24] MEDS: Prochlorperazine 10 MG/2 ML VIAL IVP (02:30)
--- NOTE | 2024-12-24 02:32 | W.EVENT ---
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 He was not on nebulizers and nebulizers were begun with DuoNeb 4 times daily and albuterol nebulizer every 2 hours as needed. He oxygen saturation did improve with less need of O2 supplementation but later in the liability claims examiner patient began to have sweats and signs and symptoms of alcohol withdrawal with patient having an alcohol level upon admission and now appearing to have alcohol withdrawal which he had with recent hospitalization. He was transferred to ICU and initiated on phenobarbital protocol with control of his symptoms with patient much more calm on phenobarbital. Reviewing labs, FARIDA was positive for cocaine with his methadone as a chronic medication indicating may be doing the street drugs as well as drinking alcohol. Chart review revealed no other pertinent findings addressing this acute problem. The patient is a smoker. He will have a nicotine supplement if he allows. Physical exam revealed the patient being sedated, lungs are bronchovesicular breath sound diffusely with expiratory wheeze but fair aeration with inspiration. There was only slightly increased expiratory phase. Heart with bradycardic rate with normal rhythm and no murmurs gallops appreciated. Abdomen was soft without distention. Extremity did not have edema. Neurological exam revealed no tremor. As stated the patient was sedated by his phenobarbital at the time of my exam. Assessment/plan: Acute alcohol withdrawal with the patient with bronchospasm with his pneumonia now on nebulizers and oxygenating better. Continue ICU level of care with phenobarbital protocol and aggressive nebulizer treatments. Watch for opioid withdrawal although the patient is on methadone which should keep this from happening. Time Spent with Patient Time spent in critical care(minutes): 40 Time Spent Included: Coordination of care, Chart review, Documenting critically ill care and Time at immediate bedside
[2024-12-24 02:47] LABS: *AMPHETAMINES SCREEN URINE Negative (Negative); *BARBITURATES SCREEN URINE Negative (Negative); *BENZODIAZEPINES SCREEN URINE Negative (Negative); Cannabinoids THC Positive (Negative); Cocaine Screen,Urine Positive (Negative); METHADONE URINE SCREEN Positive (Negative); OPIATES URINE SCREEN Negative (Negative)
[2024-12-24 02:57] LABS: Tricyclic Antidepressants Negative (Negative)
[2024-12-24] MEDS: Normal Saline Flush 10 ML SYR IVP ×4 (03:35→19:42)
[2024-12-24] MEDS: Albuterol/Ipratropium 3 ML UPD VIAL UPD ×3 (04:27→21:48)
[2024-12-24] MEDS: Pantoprazole 40 MG VIAL IVP (05:09)
[2024-12-24] MEDS: MAGNESIUM SULFATE 8.12 MEQ, MULTIVITAMIN 10 ML, THIAMINE 100 MG, FOLIC ACID 1 MG in Nor... 168.867 MG IV (06:09)
[2024-12-24 06:42] LABS: Abs Immature Grans 0.04 10^3/uL (0.0-0.06); Absolute Basophil Count 0.04 10^3/uL (0.0-0.2); Absolute Eosinophil Count 0.46 10^3/uL (0.0-0.7); Absolute Lymphocyte Count 1.35 10^3/uL (1.2-3.4); Absolute Monocyte Count 1.03 10^3/uL (0.1-0.8); Absolute Neutrophil Count 7.49 10^3/uL (1.2-6.7); Basophils % 0.4 %; Eosinophils % 4.4 %; HCT 44.8 % (40.0-50.0); HGB 14.8 g/dL (13.5-17.5); Immature Grans % 0.4 %; MCH 30.9 pg (27.0-33.0); MCV 94 fL (80-95); MPV 9.1 fL (8.0-11.0); Monocytes % 9.9 %; Neutrophils % 71.9 %; Platelet Count 366 10^3/uL (130-400); RBC 4.79 10^6/uL (4.36-5.78); RDW 14.3 % (11.8-14.1); RDW-SD 49.1 fL; WBC 10.41 10^3/uL (4.4-10.8)
[2024-12-24 06:58] LABS: ALT 14 U/L (16-63); AST 21 U/L (15-37); Albumin 2.7 g/dL (3.4-5.0); Alkaline Phosphatase 95 U/L (46-116); Bilirubin, Direct 0.2 mg/dL (0.0-0.2); Bilirubin, Total 0.7 mg/dL (0.2-1.0); Total Protein 7.9 g/dL (6.4-8.2)
[2024-12-24 07:10] LABS: Anion Gap 8.3 mmol/L (3-11); BUN 8 mg/dL (7-18); CO2 27.7 mmol/L (21.0-32.0); CREATININE 0.8 mg/dL (0.70-1.30); Calcium 9.6 mg/dL (8.5-10.1); Chloride 102 mmol/L (98-107); Estimated GFR 111.22 (mL/min/1.73m2); Glucose 95 mg/dL (74-106); Magnesium 1.9 mg/dL; Potassium 4.3 mmol/L (3.5-5.1); Sodium 138 mmol/L (136-145)
[2024-12-24] MEDS: FLUoxetine 20 MG CAP 40 MG PO (09:01)
[2024-12-24] MEDS: Doxycycline Hyclate 100 MG CAP PO ×2 (09:01→19:41)
[2024-12-24] MEDS: guaiFENesin 600 MG TABCR PO ×2 (09:02→19:41)
[2024-12-24] MEDS: Dicyclomine 10 MG CAP PO ×2 (09:02→19:41)
[2024-12-24] MEDS: Enoxaparin 40 MG/0.4 ML SYR SC (09:02)
[2024-12-24] MEDS: Methadone Liquid 10 MG/ML 130 MG PO (09:02)
[2024-12-24] MEDS: Gabapentin 600 MG TAB PO ×3 (09:02→19:41)
[2024-12-24] MEDS: buPROPion-XL 150 MG TABCR PO (09:02)
[2024-12-24] MEDS: Nicotine 21 MG/24 HR PATCH TD (09:05)
--- NOTE | 2024-12-24 10:39 | PHA.REVIEW2 ---
Pharmacy Admission Review Admission Clinical Review Admission Pharmacy Review: Acute hypoxic respiratory failure (Acute) Multifocal pneumonia (Acute) Opioid dependence on agonist therapy (Acute) No Known Allergies Allergy (Verified 12/23/24 14:59) Resuscitation Status Full Code Height 6 ft Weight 90.9 kg Pharmacy Admission Review Renal Dosing Renal Dosing: BUN 8 mg/dL (7-18) 12/24/24 05:20 Creatinine 0.8 mg/dL (0.70-1.30) 12/24/24 05:20 Medications needing adjustments: Reviewed (CrCl 149 mL/min) List of meds needing interventions: Current medications are okay Anticoagulation Anticoagulation: Hgb 14.48 12/24/24 05:35 Hct 44.8 12/24/24 05:35 Plt Count 366 12/24/24 05:35 Creatinine 0.8 mg/dL (0.70-1.30) 12/24/24 05:20 DVT Prophylaxis: Reviewed Medications: Enoxaparin (40mg daily) Opiate Usage Evaluate Pain Scale/Pains Meds: Reviewed (methadone 130mg daily - confirmed with [facility]) Scheduled Bowel Reg ordered if on Opiates?: No (PRN docusate/Miralax) Relevant Labs Relevant Labs: Sodium 138 mmol/L (136-145) 12/24/24 05:20 Potassium 4.3 mmol/L (3.5-5.1) 12/24/24 05:20 Chloride 102 mmol/L (98-107) 12/24/24 05:20 Phosphorus 3.0 mg/dL (2.6-4.7) 12/24/24 05:20 Magnesium 1.9 mg/dL 12/24/24 05:20 Electrolytes, C-Reactive P, ESR: Reviewed Cardiac Review Cardiac Review: Troponin I Cancelled 12/23/24 18:04 NT-Pro-B Natriuret Pep 73 pg/mL (<300) 12/23/24 15:05 BP, HR, EF%: Reviewed (HR 53 - has ranged in low to mid 50s all morning, BP WNL, oxygen flow rate 2) QTc Review QTc: Intervened (593 from 12/23/24 - spoke with provider. Provider is aware of elevated QTc and risk with methadone. Per provider this is patients baseline) IV to PO Switch IV Medications: Intervened (Ceftriaxone and phenobarbital. Switched pantoprazole and prochlorperazine from IV to PO (provider aware)) Home Meds Home Med List reviewed: Intervened Relevent Home Meds Not ordered & why?: Aripiprazole, hydroxyzine (PRN), losartan, metoclopramide (PRN) and omeprazole (has order for pantoprazole) Reached out to provider regarding aripiprazole and losartan. Per provider holding for now. Current Meds Current Medication Order Review: Reviewed Comments: Phenobarbital for alcohol withdrawal Soft stop: 1164mg Hard stop: 1552mg CIWA 4 @ 0920 Current Total: 481mg (loading doses) Pharmacy Antibiotic Review Relevant Labs: WBC 10.41 12/24/24 05:20 Temperature 36.7 C Temperature 36.9 C Temperature 35.8 C Temperature 36.4 C Pharmacy Antibiotic Activity: Reviewed, no change Comments: Patient is on ceftriaxone and doxycycline PO, day 1, for pneumonia. WBC decreased from 11.99 and no cultures pending at this time.
[2024-12-24] MEDS: Normal Saline 1,000 ML 100 ML IV ×2 (12:49→22:41)
[2024-12-24] MEDS: Refresh PLUS Eye Drops 0.4ml 1 EACH OU ×2 (14:00→22:49)
--- NOTE | 2024-12-24 15:54 | INITIAL_ITS ---
Date of service: 12/24/24 Time of Service: 15:54 Care Management Initial Assmt Initial Assessment Reason for Hospitalization: shortness of breath, pneumonia Functional Status/Living Situation Patient Presentation: William was admitted through the ED yesterday afternoon with c/o shortness of breath and productive cough. He was found to have multifocal pneumonia. When CM met with him this afternoon he was sleeping in the bed with the HOB up. He was wearing an O2 mask at 3L. He stated that he is feeling much better, but was still noted to have a congested sounding cough. William was pleasant, he stated that he is really tired, and hoping to get some more sleep. William is not working at present, but lives with his aunt, uncle, and his 16yo son. He gets good support from his family, and receives food stamps. William attends [facility] for his methadone treatment and meets with a counselor 2x/week. He denied the need for the Environmental Services Associate today, but was made aware that the strength and conditioning coach is available 05/05 should he need that support. Town of Residence: [place] Resides with: Other (William lives with his son at his aunt and uncles house) Significant Other/Family: Local (girlfriend, Donita) Employment Status: Unemployed Instrumental Activities of Daily Living (ADLs): Independent Medications Medication Management: No Issues/Barriers identified Advance Directives Advance Directives: Do you have an Advance Directive: N 12/07/15 14:45 AD On File at [facility]: N 02/01/13 20:37 Date Asked 12/23/24 12/23/24 16:29 AD Date Reviewed COLST On File at [facility] COLST Date Scanned Code Status Resuscitation Status Full Code Insurance Coverage/Financial Issues Insurance: Medicaid Financial Issues: is not working, but feels that he is doing ok. Has 3 squares and family support. Care Team Visit Care Team Role Provider Type Yulia Miller Primary Care Provider NURSE PRACTITIONER Pat Valdovinos MD Emergency Provider [facility] STAFF PHYSICIAN Renato Watts MD Admit Provider [facility] STAFF PHYSICIAN Attending Provider Discharge Potential Discharge Needs: PCP F/U Appt Anticipated Barriers to Discharge: None Identified Patient/Family Education Needs: Review discharge instructions, discuss Ask Me Three Transportation: Private vehicle (William has is own car here in the parking lot) Plan: Anticipate that William will be discharged home with no new services. He will f/u with his PCP and continue per his plan of care. He will transport himself home. CM will continue to follow and update the plan as needed. Social Determinants of Health Screening Will the Patient Participate in the Screening?: Declined to provide PFSH All Active Problems (Updated 12/23/24 @ 16:25 by Pat Valdovinos MD) Acute hypoxic respiratory failure (Acute) Multifocal pneumonia (Acute) Abdominal cramping (Acute) Ileus (Acute) Acute hypokalemia (Acute) HTN (hypertension) (Chronic) Suicide ideation (Acute) Polysubstance abuse (Chronic) Opioid use disorder (Acute) Nicotine dependence (Acute) Opioid dependence on agonist therapy (Acute) Alcohol dependence (Chronic) Medical History Pancreatitis DVT (deep venous thrombosis) History of osteomyelitis Hepatitis B Hepatitis C Depression Alcohol withdrawal Polysubstance abuse Family History Other Alcohol use disorder Depression Social History Smoking/Tobacco Use Status: Current every day Tobacco Type: cigarettes Smoking risk assessment performed?: Yes Alcohol Intake: current Alcohol Intake frequency: 3 or more drinks per day Alcohol type: hard liquor Drug use: Daily Substance use type: marijuana Details: Pt states he last used marijuana 10/23/24 Last used ETOH about 10/16/24 Housing: house Do you feel safe at home: Yes Do you feel safe in your relationship?: Yes Readmission Within the Past 30 Days Yes or No: No
[2024-12-24] MEDS: cefTRIAXone 1 GM/50 ML BAG IVPB (16:10)
--- NOTE | 2024-12-24 18:11 | PGE_ITS ---
Date of Service Date of service: 12/24/24 Time of Service: 18:12 Assessment and Plan Assessment and plan (1) Multifocal pneumonia: Status: Acute Assessment and plan: - As seen on chest x-ray -Patient does not meet sepsis criteria as he was afebrile, did not have an elevated white blood cell count, was not tachycardic and was only mildly tachypneic with the highest respiratory rate documented as 28 -Was started on ceftriaxone doxycycline in the emergency department, will continue (2) Acute hypoxic respiratory failure: Status: Acute Assessment and plan: - Presumed secondary to multifocal pneumonia as noted above -Patient's respiratory status appeared to worsen overnight 12/23/2024 requiring up to 3 L nasal cannula, however patient significant mouth breather, and had significant improvement of his oxygen requirement once placed on oxime mask, currently requiring only 1 L (3) Opioid dependence on agonist therapy: Status: Acute Assessment and plan: - Will continue home methadone normal dose once verified by pharmacy (4) Alcohol withdrawal: Status: Acute Assessment and plan: - Started become agitated and started going through alcohol withdrawal in the evening of 12/23/2024 -Started on phenobarbital protocol and has had significant improvement in CIWA scores Subjective Subjective Interval history since last seen: Patient states that he is tired today but is breathing better as compared to yesterday/last night. Exam Narrative Exam Narrative: Fatigued appearing gentleman laying in bed in no acute distress, ANO x 4, heart rate mildly bradycardic with rates in the mid 50s and regular rhythm, no murmurs, on 1 L oxy mask lungs with diffuse coarse breath sounds in bilateral upper and lower lobes, abdomen soft, nontender, nondistended Objective Last Vital Signs Temp 98.1 F 12/24/24 09:40 Pulse 63 12/24/24 17:00 Resp 23 12/24/24 17:00 BP 119/67 12/24/24 16:00 Pulse Ox 93 12/24/24 17:00 Laboratory Results - last 24 hr 12/24/24 12/24/24 12/24/24 01:25 05:20 05:35 WBC 10.41 Cancelled RBC 4.79 Cancelled Hgb 14.8 Cancelled Hct 44.8 Cancelled MCV 94 Cancelled MCH 30.9 Cancelled MCHC 33.0 Cancelled RDW 14.3 H Cancelled Plt Count 366 Cancelled MPV 9.1 Cancelled Immature Gran % 0.4 Neutrophils % 71.9 Lymphocytes % 13.0 Monocytes % 9.9 Eosinophils % 4.4 Basophils % 0.4 Nucleated RBC % 0.0 Absolute Neutrophils 7.49 H Absolute Lymphocytes 1.35 Absolute Monocytes 1.03 H Absolute Eosinophils 0.46 Absolute Basophils 0.04 Sodium 138 Potassium 4.3 Chloride 102 Carbon Dioxide 27.7 Anion Gap 8.3 BUN 8 Creatinine 0.8 Est GFR (CKD-EPI 2020) 111.22 Glucose 95 Calcium 9.6 Phosphorus 3.0 Magnesium 1.9 Total Bilirubin 0.7 Conjugated Bilirubin 0.2 AST 21 ALT 14 L Alkaline Phosphatase 95 Total Protein 7.9 Albumin 2.7 L Urine Opiates Screen Negative Urine Methadone Screen Positive A Ur Barbiturates Screen Negative Ur Tricyclics Screen Negative Ur Amphetamines Screen Negative U Benzodiazepines Scrn Negative Urine Cocaine Screen Positive A Ur THC Screen Positive A PAWSS Have you Been Recently Intoxicated or Drunk Within the Last 30 days?: Yes Have you Ever Experienced Previous Episodes of Alcohol Withdrawal?: Yes Have you ever Experienced Withdrawal Seizures?: Yes Have you ever Experienced Delirium Tremens(DT)s?: Yes Have you ever undergone Alcohol Rehabilitation Treatment (i.e, inpt ot outpatient treatment programs)?: Yes Have you ever Experienced Blackouts?: No Have you ever Combined Alcohol with other Downers within the last 90 days?: Yes Have you ever Combined Alcohol with any other Substance of Abuse during the last 90 days?: Yes Positive Blood Alcohol level on Presentation? [PCS.BAL]: Unable to Obtain Evidence of Increased Autonomic Activity (i.e. HR>120, tremor, sweating, agitation, nausea)?: Yes Result: 8 Time Spent with Patient Time Spent with Patient: >50 minutes Time was spent: preparing to see the patient(eg.review tests), obtaining and/or reviewing separately otained hiistory, ordering medications,tests, procedures, referring, communicating with other health acute care nursing assistant, indepentently interpreting results, counseling the patient and care coordination
[2024-12-25] VITALS (40 sets, daily range): BP systolic 113–147; BP diastolic 61–86; PULSE 28–80; RESP 3–58; TEMP 34–38.2; O2SAT 79–96
[2024-12-25] MEDS: PHENobarbital 130 MG/ML VIAL IVP ×3 (02:47→19:38)
[2024-12-25] MEDS: Albuterol/Ipratropium 3 ML UPD VIAL UPD ×4 (03:06→23:34)
[2024-12-25 03:18] LABS: Bilirubin Small (Negative); Blood Negative (Negative); Clarity Clear (Clear); Glucose Negative (Negative); Ketones Negative (Negative); Leukocyte Esterase Negative (Negative); Nitrite Negative (Negative); Specific Gravity >= 1.030 (1.005-1.025); pH 6.5 (5-8)
[2024-12-25] MEDS: Normal Saline Flush 10 ML SYR IVP ×7 (05:27→19:38)
[2024-12-25] MEDS: Acetaminophen 325 MG TAB PO ×2 (05:28→19:37)
[2024-12-25 07:00] LABS: Abs Immature Grans 0.05 10^3/uL (0.0-0.06); Absolute Basophil Count 0.04 10^3/uL (0.0-0.2); Absolute Lymphocyte Count 1.19 10^3/uL (1.2-3.4); Absolute Monocyte Count 0.99 10^3/uL (0.1-0.8); Basophils % 0.3 %; Eosinophils % 2.1 %; HGB 13.2 g/dL (13.5-17.5); Immature Grans % 0.4 %; Lymphocytes % 9.8 %; MCH 31.4 pg (27.0-33.0); MCV 95 fL (80-95); MPV 9.1 fL (8.0-11.0); Monocytes % 8.2 %; Neutrophils % 79.2 %; Platelet Count 332 10^3/uL (130-400); RBC 4.21 10^6/uL (4.36-5.78); RDW 14.1 % (11.8-14.1); RDW-SD 49.1 fL
[2024-12-25 07:09] LABS: Absolute Eosinophil Count 0.25 10^3/uL (0.0-0.7); Absolute Neutrophil Count 9.58 10^3/uL (1.2-6.7)
[2024-12-25] MEDS: Dicyclomine 10 MG CAP PO ×2 (08:16→19:38)
[2024-12-25] MEDS: Gabapentin 600 MG TAB PO ×3 (08:16→19:37)
[2024-12-25] MEDS: Pantoprazole 40 MG TABCR PO (08:17)
[2024-12-25] MEDS: FLUoxetine 20 MG CAP 40 MG PO (08:17)
[2024-12-25] MEDS: guaiFENesin 600 MG TABCR PO ×2 (08:17→19:37)
[2024-12-25] MEDS: Doxycycline Hyclate 100 MG CAP PO (08:17)
[2024-12-25] MEDS: buPROPion-XL 150 MG TABCR PO (08:18)
[2024-12-25] MEDS: Methadone Liquid 10 MG/ML 130 MG PO (08:18)
[2024-12-25] MEDS: Enoxaparin 40 MG/0.4 ML SYR SC (08:18)
[2024-12-25] MEDS: Nicotine 21 MG/24 HR PATCH TD (08:38)
[2024-12-25] MEDS: ARIPiprazole 5 MG TAB PO (08:42)
[2024-12-25] MEDS: Normal Saline 1,000 ML 100 ML IV ×2 (08:44→19:38)
--- NOTE | 2024-12-25 08:45 | RT.EKG_ITS ---
APPROVED REPORT Exam: Resting ECG Reason for Exam: NSVT on tele Patient Location: I HR:59 bpm ECG Measurements Heart Rate 59 AXIS RI 144 P 5 QRSd 95 QRS 14 QT 564 T 53 QTc 561 Conclusion Sinus bradycardia...rate< 60 Probable left ventricular hypertrophy...multiple LVH criteria Prolonged QT interval...QTc >500mS
[2024-12-25 08:49] LABS: NT-proBNP 69 pg/mL (<300)
[2024-12-25 09:14] LABS: Anion Gap 10.7 mmol/L (3-11); BUN 6 mg/dL (7-18); CO2 25.3 mmol/L (21.0-32.0); CREATININE 0.7 mg/dL (0.70-1.30); Calcium 8.6 mg/dL (8.5-10.1); Chloride 101 mmol/L (98-107); Glucose 83 mg/dL (74-106); Potassium 4.7 mmol/L (3.5-5.1); Sodium 137 mmol/L (136-145)
--- NOTE | 2024-12-25 09:15 | DI.CT_ITS ---
Exam(s) CT CHEST PE CTA EXAM: CT CHEST PE CTA CLINICAL HISTORY: increased o2 needs. TECHNIQUE: Imaging Protocol: Axial CT angiography was performed with multi-slice acquisition and mu lti-planar and/or 3D reconstructions. Lung Computer Aided Detection (CAD) was utilized. CONTRAST MATERIAL: Intravenous: Omnipaque 350 contrast volume:100 mL COMPARISON: CT CT CHEST W from 08/13/[address] CHEST/ABD/PEL W from 10/17/2024 FINDINGS: There is artifact from patient motion. Tracheobronchial tree: Patent where visualized. No bronchiectasis. Pulmonary parenchyma: Multifocal bilateral severe ground-glass opacities are present in the lungs. N o suspicious pulmonary nodules are present. Pulmonary Arteries: Within the limits of the examination, no pulmonary embolism is seen. No large ce ntral pulmonary embolism is present. Mediastinum and Debby: There are mildly enlarged lymph nodes in the mediastinum which are likely react otto. The esophagus is unremarkable. Visualized thyroid gland: Unremarkable. Pleura: No effusion or pneumothorax. Heart: The heart is not dilated. Mild coronary artery calcification is present. No pericardial effus ion. Aorta: Thoracic aorta non-dilated. No evidence of dissection. Upper abdomen: Unremarkable. Soft tissues: Unremarkable. Bones: Within normal limits for the patient's age. IMPRESSION: 1. No evidence of pulmonary embolism, thoracic aortic dissection or aneurysm. 2. Multifocal ground-glass infiltrates suspicious for pneumonia. COVID-19 should be considered. Pul monary edema or pulmonary hemorrhage should also be considered. RADIATION DOSE DELIVERED: 137.32mGy.cm Total DLP DATA REPOSITORY: All CT scans at this facility are submitted to the National Radiology Data Registry (NRDR) Dose Index Registry (DIR) with the [employer] (A[employer]). RADIATION OPTIMIZATION: All CT scans at this facility use at least one of these dose optimization te chniques: automated exposure control; mA and/or kV adjustment per patient size (includes targeted exa ms where dose is matched to clinical indication); or iterative reconstruction.
[2024-12-25] MEDS: MAGNESIUM SULFATE 2 GM/50 ML BAG IV_INF (09:17)
[2024-12-25] MEDS: Normal Saline - Diluent 50 ML VIAL IJ (09:34)
[2024-12-25] MEDS: Omnipaque 350 MG/ML 100 ML BTL IJ (09:35)
--- NOTE | 2024-12-25 10:10 | DI.VRAD_ITS ---
PROCEDURE INFORMATION: Exam: CTA Chest With Contrast Exam date and time: 12/25/2024 9:47 AM Age: 44 years old Clinical indication: Shortness of breath; Decreased o2 TECHNIQUE: Imaging protocol: Computed tomographic angiography of the chest with contrast. Exam focused on the arteries. 3D rendering (Not supervised by radiologist): MIP and/or 3D reconstructed images were created by the technologist. Contrast material: OMNIPQUE 350; Contrast volume: 100 ml; Contrast route: INTRAVENOUS (IV); COMPARISON: CT CHEST PE CTA 03/20/2021 12:58 PM FINDINGS: Limitations: Mild motion artifact. Pulmonary arteries: No pulmonary embolus is appreciated. Aorta: No thoracic aortic aneurysm seen. Lungs: Extensive airspace opacities throughout all lobes of both lungs. Pleural spaces: No pleural effusion. Heart: No pericardial effusion. Lymph nodes: Mild mediastinal and hilar lymphadenopathy. Diaphragm: Elevated right hemidiaphragm. Adrenal glands: Adrenal thickening. Bones/joints: No acute pertinent abnormality seen. Soft tissues: No acute pertinent abnormality seen. IMPRESSION: 1. No pulmonary embolus is appreciated. 2. Extensive airspace opacities throughout both lungs. Consider infection, edema, inflammation, hemorrhage. Follow-up advised. 3. Additional findings as above. Dictated and Authenticated by: Tete Barrow MD. Orderin Stefanie Gross MD
[2024-12-25 10:41] LABS: Magnesium 1.7 mg/dL
--- NOTE | 2024-12-25 11:34 | W.PM.PROGNOT ---
Date of Service Date of service: 12/25/24 Time of Service: 11:34 Assessment and Plan Assessment and plan (1) Multifocal pneumonia: Status: Acute Assessment and plan: - As seen on chest x-ray -Patient does not meet sepsis criteria as he was afebrile, did not have an elevated white blood cell count, was not tachycardic and was only mildly tachypneic with the highest respiratory rate documented as 28 -Was started on ceftriaxone doxycycline in the emergency department -Transitioned to cefpodoxime on the morning of 12/25/2024 given significant increase in oxygen requirement -MRSA swab pending, will add vancomycin if positive -Given ongoing significant oxygen requirement, patient will be started on hydrocortisone 200 mg IV daily and will continue until oxygen requirements improve or patient is discharged from the ICU (2) Acute hypoxic respiratory failure: Status: Acute Assessment and plan: - Presumed secondary to multifocal pneumonia as noted above -Patient's respiratory status appeared to worsen overnight 12/23/2024 requiring up to 3 L nasal cannula, however patient significant mouth breather, and had significant improvement of his oxygen requirement once placed on oxime mask, currently requiring only 1 L -Late in the afternoon 12/24/2024 patient's oxygen requirements increasing overnight he was placed on up to 8 to 10 L nasal cannula -CTA chest PE was performed and did not show any pulmonary embolus but did show significant multifocal pneumonia -Management changed as noted above (3) Opioid dependence on agonist therapy: Status: Acute Assessment and plan: - Will continue home methadone normal dose once verified by pharmacy (4) Alcohol withdrawal: Status: Acute Assessment and plan: - Started become agitated and started going through alcohol withdrawal in the evening of 12/23/2024 -Started on phenobarbital protocol and has had significant improvement in CIWA scores Subjective Subjective Interval history since last seen: Patient states that overall he is feeling better though he is continuing to have some difficulty with shortness of breath particularly when he was moving to the bedside commode. Exam Narrative Exam Narrative: Acutely ill-appearing young gentleman laying in bed and mild respiratory distress, ANO x 4, high flow nasal cannula in place, heart regular rate rhythm, lungs with diffuse coarse breath sounds throughout, abdomen soft, nontender, nondistended Objective Last Vital Signs Temp 98.8 F 12/25/24 11:28 Pulse 75 12/25/24 10:20 Resp 27 H 12/25/24 10:20 BP 147/86 H 12/25/24 10:20 Pulse Ox 85 L 12/25/24 11:28 Laboratory Results - last 24 hr 12/25/24 12/25/24 02:50 05:26 WBC 12.10 H RBC 4.21 L Hgb 13.2 L Hct 40.0 MCV 95 MCH 31.4 MCHC 33.0 RDW 14.1 Plt Count 332 MPV 9.1 Immature Gran % 0.4 Neutrophils % 79.2 Lymphocytes % 9.8 Monocytes % 8.2 Eosinophils % 2.1 Basophils % 0.3 Nucleated RBC % 0.0 Absolute Neutrophils 9.58 H Absolute Lymphocytes 1.19 L Absolute Monocytes 0.99 H Absolute Eosinophils 0.25 Absolute Basophils 0.04 Sodium 137 Potassium 4.7 Chloride 101 Carbon Dioxide 25.3 Anion Gap 10.7 BUN 6 L Creatinine 0.7 Est GFR (CKD-EPI 2020) 115.80 Glucose 83 Calcium 8.6 Magnesium 1.7 NT-Pro-B Natriuret Pep 69 Urine Color Yellow Urine Clarity Clear Urine pH 6.5 Ur Specific [place] >= 1.030 H Urine Protein Trace Urine Ketones Negative Urine Blood Negative Urine Nitrite Negative Urine Bilirubin Small H Urine Urobilinogen 4.0 H Ur Leukocyte Esterase Negative Urine Glucose Negative PAWSS Have you Been Recently Intoxicated or Drunk Within the Last 30 days?: Yes Have you Ever Experienced Previous Episodes of Alcohol Withdrawal?: Yes Have you ever Experienced Withdrawal Seizures?: Yes Have you ever Experienced Delirium Tremens(DT)s?: Yes Have you ever undergone Alcohol Rehabilitation Treatment (i.e, inpt ot outpatient treatment programs)?: Yes Have you ever Experienced Blackouts?: No Have you ever Combined Alcohol with other Downers within the last 90 days?: Yes Have you ever Combined Alcohol with any other Substance of Abuse during the last 90 days?: Yes Positive Blood Alcohol level on Presentation? [PCS.BAL]: Unable to Obtain Evidence of Increased Autonomic Activity (i.e. HR>120, tremor, sweating, agitation, nausea)?: Yes Result: 8 Time Spent with Patient Time Spent with Patient: >50 minutes Time was spent: preparing to see the patient(eg.review tests), obtaining and/or reviewing separately otained hiistory, ordering medications,tests, procedures, referring, communicating with other health inspector health care facilities, indepentently interpreting results, counseling the patient and care coordination
[2024-12-25 11:55] LABS: MRSA PCR Negative (Negative)
[2024-12-25] MEDS: CEFEPIME 2 GM in Normal Saline 100 ML IVPB ×2 (12:06→19:38)
[2024-12-25] MEDS: Hydrocortisone SOD SUC. 100 MG VIAL 200 MG IVP (12:07)
[2024-12-25] MEDS: LORazepam 2 MG/ML VIAL 1 MG IVP ×2 (12:25→18:14)
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
[2024-12-26] VITALS (46 sets, daily range): BP systolic 107–129; BP diastolic 54–77; PULSE 63–82; RESP 3–45; TEMP 36.5–37.8; O2SAT 80–97
--- NOTE | 2024-12-26 | DI.RAD_ITS ---
Exam(s) XR PORTABLE CHEST AP EXAM: XR PORTABLE CHEST AP CLINICAL HISTORY: Respiratory Failure TECHNIQUE: 2D digital imaging was performed. COMPARISON: CR,XR XR PORTABLE CHEST AP from 12/26/2024 FINDINGS: Exam is limited by poor pulmonary inflation overlying monitoring leads and oxygen tubing. LUNGS: Clear interval worsening in extent and density of previously noted bilateral infiltrates no pl eural abnormality seen. HEART: A mostly obscured AORTA: Normal diameter. BONES: Unremarkable for age. Soft tissues: Unremarkable. IMPRESSION: Worsening of bilateral pulmonary infiltrates. DATA REPOSITORY: RADIATION DOSE DELIVERED:
--- NOTE | 2024-12-26 | DI.RAD_ITS ---
Exam(s) XR PORTABLE CHEST AP EXAM: XR PORTABLE CHEST AP CLINICAL HISTORY: worse hypoxia TECHNIQUE: 2D digital imaging was performed. COMPARISON: CR XR CHEST 2V PA LATERAL from 12/23/2024 FINDINGS: Exam is limited by suboptimal inflation. Leads overlie the chest. LUNGS: Diffuse bilateral infiltrates are again noted, greater on the left. No pleural abnormality se en. HEART: Normal size for degree of inspiration. AORTA: Normal diameter. BONES: Unremarkable for age. Soft tissues: Unremarkable. IMPRESSION: Stable appearance of bilateral pulmonary infiltrates. DATA REPOSITORY: RADIATION DOSE DELIVERED:
[2024-12-26] MEDS: PHENobarbital 130 MG/ML VIAL IVP ×3 (00:03→21:07)
[2024-12-26] MEDS: Furosemide 20 MG/2 ML VIAL IVP ×2 (01:26→23:21)
[2024-12-26] MEDS: MORPHine 2 MG/ML SYR 1 MG IVP (01:27)
[2024-12-26 01:30] LABS: BE 1 mmol/L (-2-3); HCO3 26 mmol/L (22-26); pCO2 44 mmHg (35-45); pH 7.38 (7.35-7.45); pO2 69 mmHg (80-105); sO2 93 % (95-98); tCO2 24 mmol/L (23-27)
[2024-12-26 01:31] LABS: Site Right Radial
[2024-12-26 01:32] LABS: FIO2L 75 L
[2024-12-26 01:43] LABS: HCT 39.5 % (40.0-50.0); HGB 12.9 g/dL (13.5-17.5); MCH 30.8 pg (27.0-33.0); MCHC 32.7 % (32.0-36.0); MCV 94 fL (80-95); MPV 8.8 fL (8.0-11.0); Platelet Count 313 10^3/uL (130-400); RBC 4.19 10^6/uL (4.36-5.78); RDW 13.8 % (11.8-14.1); RDW-SD 47.9 fL; WBC 14.68 10^3/uL (4.4-10.8)
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
[2024-12-26] MEDS: Normal Saline Flush 10 ML SYR IVP ×6 (02:19→19:30)
[2024-12-26] MEDS: LORazepam 2 MG/ML VIAL 1 MG IVP ×3 (02:19→06:27)
[2024-12-26] MEDS: VANCOMYCIN 2,000 MG in Normal Saline 500 ML 250 MG IVPB (03:01)
[2024-12-26] MEDS: CEFEPIME 2 GM in Normal Saline 100 ML IVPB ×3 (03:32→20:07)
[2024-12-26] MEDS: Albuterol/Ipratropium 3 ML UPD VIAL UPD ×4 (03:50→22:24)
[2024-12-26] MEDS: Albuterol 2.5 MG/3 ML INH SOLN VIAL UPD ×6 (05:22→21:25)
[2024-12-26 06:13] LABS: Abs Immature Grans 0.07 10^3/uL (0.0-0.06); Absolute Eosinophil Count 0.16 10^3/uL (0.0-0.7); Absolute Monocyte Count 0.73 10^3/uL (0.1-0.8); Basophils % 0.3 %; Eosinophils % 1.1 %; HCT 37.7 % (40.0-50.0); HGB 12.7 g/dL (13.5-17.5); Immature Grans % 0.5 %; Lymphocytes % 5.8 %; MCH 31.4 pg (27.0-33.0); MCHC 33.7 % (32.0-36.0); MCV 93 fL (80-95); Neutrophils % 87.3 %; Platelet Count 323 10^3/uL (130-400); RBC 4.04 10^6/uL (4.36-5.78); RDW 13.9 % (11.8-14.1); RDW-SD 47.7 fL; WBC 14.54 10^3/uL (4.4-10.8)
[2024-12-26 06:18] LABS: Absolute Basophil Count 0.04 10^3/uL (0.0-0.2); Absolute Lymphocyte Count 0.84 10^3/uL (1.2-3.4); Absolute Neutrophil Count 12.69 10^3/uL (1.2-6.7)
[2024-12-26 06:27] LABS: Magnesium 1.6 mg/dL
[2024-12-26] MEDS: Normal Saline 1,000 ML 100 ML IV (06:27)
[2024-12-26] MEDS: FLUoxetine 20 MG CAP 40 MG PO (08:02)
[2024-12-26] MEDS: Gabapentin 600 MG TAB PO ×3 (08:02→19:58)
[2024-12-26] MEDS: ARIPiprazole 5 MG TAB PO (08:02)
[2024-12-26] MEDS: Dicyclomine 10 MG CAP PO ×2 (08:02→19:58)
[2024-12-26] MEDS: guaiFENesin 600 MG TABCR PO ×2 (08:03→19:58)
[2024-12-26] MEDS: Hydrocortisone SOD SUC. 100 MG VIAL 200 MG IVP (08:03)
[2024-12-26] MEDS: buPROPion-XL 150 MG TABCR PO (08:03)
[2024-12-26] MEDS: Enoxaparin 40 MG/0.4 ML SYR SC (08:03)
[2024-12-26] MEDS: Methadone Liquid 10 MG/ML 130 MG PO (08:03)
[2024-12-26] MEDS: Nicotine 21 MG/24 HR PATCH TD (08:04)
[2024-12-26 08:23] LABS: Vancomycin, Random 35.7 ug/mL
--- NOTE | 2024-12-26 08:38 | PGE_ITS ---
Date of Service Date of service: 12/26/24 Time of Service: 08:38 Assessment and Plan Assessment and plan (1) Multifocal pneumonia: Status: Acute Assessment and plan: -As seen on chest x-ray and now CT -Patient does now meet sepsis criteria with fever, elevated WBC, elevated RR, and pneumonia -Was started on ceftriaxone/doxycycline in the emergency department -Transitioned to cefepime on the morning of 12/25/2024 given significant increase in oxygen requirement, then vanco with fevers, hydrocortisone added for severe pneumonia -MRSA swab negative -Overall, it is concerning that his respiratory status is worsening and ongoing fevers despite appropriate antibiotic coverage. -Ground glass infiltrates, profound hypoxia, dry cough raise concern for PJP, though we don't have a known classic risk factor he is at risk with polysubstance use. Get induced sputum and beta-glucan. -Was flu/COVID/RSV negative at admission, worse since, repeat PCRs -Stop vancomycin, but resume doxycycline given bilateral pneumonia pattern and cover for PJP with TMP/SMX 10mg/kg/day dose (2) Acute hypoxic respiratory failure: Status: Acute Assessment and plan: - Presumed secondary to multifocal pneumonia as noted above -Patient's respiratory status appeared to worsen overnight 12/23/2024, initially felt simply due to mouth breathing, but worse again late in the afternoon 12/24/2024 requiring up to 8 to 10 L nasal cannula -Started on NIV with sedation to help him tolerate overnight 12/25 -CTA chest PE was performed and did not show any pulmonary embolus but did confirm significant multifocal pneumonia -Management changed as noted above -today change sedation from benzodiazepine to dexmedetomidate, safer in combination with phenobarbital. -I don't think CHF contributing, no further diuresis (3) Opioid dependence on agonist therapy: Status: Acute Assessment and plan: - Will continue home methadone. Cocaine also noted indicating active polysubstance abuse. (4) Alcohol withdrawal: Status: Acute Assessment and plan: - Started become agitated and started going through alcohol withdrawal in the evening of 12/23/2024 -Started on phenobarbital protocol and has had significant improvement in CIWA scores -Get phenobarbital level once he meets soft maximum to give us a sense for how many more doses we can give. (5) Hypomagnesemia: Status: Resolved Assessment and plan: replace again today, follow (6) Depression: Assessment and plan: Monitor mood, watch for withdrawal if he isn't able to take oral meds including SSRI, buproprion, aripiprazole. (7) Nicotine dependence: Status: Acute Assessment and plan: NRT prn (8) DVT prophylaxis: Status: Acute Assessment and plan: enoxaparin Subjective Subjective Interval history since last seen: 24 hr events: Started on vancomycin after new fevers, though MRSA nasal PCR negative Added hydrocortisone and change CTX to cefepime after worsening hypoxia CTA also done due to hypoxia, showing ground glass interstitial pneumonia Has been getting lorazepam prn to tolerate BiPAP/NIV Last fever 38.2 at 2200 Furosemide 20mg IV x 1 overnight Close to soft stop on phenobarb protocol He complains of discomfort of the BiPAP mask. Dry cough. He is taking minimal PO. Exam Narrative Exam Narrative: Acutely ill-appearing young gentleman laying in bed and mild respiratory distress, mask in place, alert and oriented. heart regular rate rhythm, lungs with diffuse coarse breath sounds, some crackles more centrally bilaterally. Abdomen soft, nontender, nondistended. Ext non tender and no edema. Skin no rash, warm. Neuro: moving 4 extremities, mild tremor in arms/legs. Objective Last Vital Signs Temp 37.8 C H 12/26/24 05:30 Pulse 82 12/26/24 07:13 Resp 38 H 12/26/24 07:13 BP 128/73 12/26/24 06:01 Pulse Ox 93 12/26/24 07:13 Laboratory Results - last 24 hr 12/25/24 12/25/24 12/26/24 05:26 10:30 01:20 WBC RBC Hgb Hct MCV MCH MCHC RDW Plt Count MPV Immature Gran % Neutrophils % Lymphocytes % Monocytes % Eosinophils % Basophils % Nucleated RBC % Absolute Neutrophils Absolute Lymphocytes Absolute Monocytes Absolute Eosinophils Absolute Basophils ABG Sample Site Right Radial ABG pH 7.38 ABG pCO2 44 ABG pO2 69 L ABG HCO3 26 ABG Total CO2 24 ABG O2 Saturation 93 L ABG Base Excess 1 Oxygen Liter Flow 75 Sodium 137 Potassium 4.7 Chloride 101 Carbon Dioxide 25.3 Anion Gap 10.7 BUN 6 L Creatinine 0.7 Est GFR (CKD-EPI 2020) 115.80 Glucose 83 Calcium 8.6 Magnesium 1.7 NT-Pro-B Natriuret Pep 69 Random Vancomycin MRSA (TEM-PCR) Negative 12/26/24 12/26/24 01:38 06:00 WBC 14.68 H 14.54 H RBC 4.19 L 4.04 L Hgb 12.9 L 12.7 L Hct 39.5 L 37.7 L MCV 94 93 MCH 30.8 31.4 MCHC 32.7 33.7 RDW 13.8 13.9 Plt Count 313 323 MPV 8.8 9.0 Immature Gran % 0.5 Neutrophils % 87.3 Lymphocytes % 5.8 Monocytes % 5.0 Eosinophils % 1.1 Basophils % 0.3 Nucleated RBC % 0.0 Absolute Neutrophils 12.69 H Absolute Lymphocytes 0.84 L Absolute Monocytes 0.73 Absolute Eosinophils 0.16 Absolute Basophils 0.04 ABG Sample Site ABG pH ABG pCO2 ABG pO2 ABG HCO3 ABG Total CO2 ABG O2 Saturation ABG Base Excess Oxygen Liter Flow Sodium Potassium Chloride Carbon Dioxide Anion Gap BUN Creatinine Est GFR (CKD-EPI 2020) Glucose Calcium Magnesium 1.6 NT-Pro-B Natriuret Pep Random Vancomycin 35.7 MRSA (TEM-PCR) PAWSS Have you Been Recently Intoxicated or Drunk Within the Last 30 days?: Yes Have you Ever Experienced Previous Episodes of Alcohol Withdrawal?: Yes Have you ever Experienced Withdrawal Seizures?: Yes Have you ever Experienced Delirium Tremens(DT)s?: Yes Have you ever undergone Alcohol Rehabilitation Treatment (i.e, inpt ot outpatient treatment programs)?: Yes Have you ever Experienced Blackouts?: No Have you ever Combined Alcohol with other Downers within the last 90 days?: Yes Have you ever Combined Alcohol with any other Substance of Abuse during the last 90 days?: Yes Positive Blood Alcohol level on Presentation? [PCS.BAL]: Unable to Obtain Evidence of Increased Autonomic Activity (i.e. HR>120, tremor, sweating, agitation, nausea)?: Yes Result: 8 Time Spent with Patient Time Spent with Patient: >50 minutes Time was spent: preparing to see the patient(eg.review tests), obtaining and/or reviewing separately otained hiistory, ordering medications,tests, procedures, referring, communicating with other health home child care provider, indepentently interpreting results, counseling the patient and care coordination
[2024-12-26] MEDS: MAGNESIUM SULFATE 2 GM/50 ML BAG IV_INF (08:45)
[2024-12-26] MEDS: dexmedeTOMidine IN 0.9 % NACL 400 MCG/100 ML BTL 9.04 MCG IV ×2 (08:46→18:28)
[2024-12-26] MEDS: Pantoprazole 40 MG VIAL IVP (08:50)
[2024-12-26] MEDS: DOXYCYCLINE 100 MG in Normal Saline 100 ML IVPB ×2 (09:10→20:07)
[2024-12-26 10:29] LABS: COVID-19 PCR Negative (Negative); Influenza A PCR Negative (Negative); Influenza B PCR Negative (Negative); RSV PCR Negative (Negative)
[2024-12-26 10:30] LABS: Source Nasopharynx
[2024-12-26 11:07] LABS: Anion Gap 5.2 mmol/L (3-11); BUN 4 mg/dL (7-18); CO2 26.8 mmol/L (21.0-32.0); CREATININE 0.8 mg/dL (0.70-1.30); Chloride 104 mmol/L (98-107); Estimated GFR 111.22 (mL/min/1.73m2); Glucose 134 mg/dL (74-106); PHENOBARBITAL 12.9 ug/mL (15.0-40.0); Potassium 4.3 mmol/L (3.5-5.1); Sodium 136 mmol/L (136-145)
[2024-12-26 12:57] LABS: BE (Venous) 1 mmol/L (-2-3); HCO3 (Venous) 26 mmol/L (23-28); O2 Sat (Venous) 91 %; TCO2 (Venous) 24 mmol/L (24-29); pCO2 (Venous) 44 mmHg (41-51); pH (Venous) 7.38 (7.31-7.41); pO2 (Venous) 61 mmHg
[2024-12-26] MEDS: DEXTROSE 5%-LACTATED RINGERS 1,000 ML 125 ML IV (17:03)
--- NOTE | 2024-12-26 17:31 | DI.VRAD_ITS ---
PROCEDURE INFORMATION: Exam: XR Chest Exam date and time: 12/26/2024 4:23 PM Age: 44 years old Clinical indication: Other: Worse hypoxia TECHNIQUE: Imaging protocol: Radiologic exam of the chest. Views: 1 view. COMPARISON: CT CHEST PE CTA 12/25/2024 9:47 AM FINDINGS: Lungs: There is diffuse patchy hazy bilateral airspace disease throughout both lungs, similar in appearance on the comparison CT chest exam from yesterday. Pleural spaces: No pleural effusion or pneumothorax is demonstrated. Heart/Mediastinum: The heart is probably normal in size given imaging at low lung volumes. Diaphragm: There is elevation of the right hemidiaphragm. Bones/joints: The visualized bony structures appear grossly intact. IMPRESSION: Diffuse patchy hazy bilateral airspace disease throughout both lungs, similar in appearance on the comparison exam from yesterday. Dictated and Authenticated by: Jose Mitchell MD. Orderin Vivienne Hager MD
[2024-12-26 18:09] LABS: BE (Venous) 1 mmol/L (-2-3); HCO3 (Venous) 26 mmol/L (23-28); O2 Sat (Venous) 90 %; TCO2 (Venous) 24 mmol/L (24-29); pCO2 (Venous) 48 mmHg (41-51); pH (Venous) 7.35 (7.31-7.41); pO2 (Venous) 61 mmHg
[2024-12-26] MEDS: ACETAMINOPHEN 1,000 MG/100 ML BAG 400 MG IVPB (20:11)
[2024-12-26 22:52] LABS: BE 0 mmol/L (-2-3); HCO3 25 mmol/L (22-26); pCO2 42 mmHg (35-45); pH 7.38 (7.35-7.45); pO2 65 mmHg (80-105); sO2 92 % (95-98); tCO2 23 mmol/L (23-27)
[2024-12-26 22:54] LABS: FIO2 95 %; Site Left Radial
[2024-12-26] MEDS: dexmedeTOMidine IN 0.9 % NACL 400 MCG/100 ML BTL 27.12 MCG IV (23:07)
--- NOTE | 2024-12-26 23:23 | DI.VRAD_ITS ---
PROCEDURE INFORMATION: Exam: XR Chest Exam date and time: 12/26/2024 10:55 PM Age: 44 years old Clinical indication: Other: Respiratory failure TECHNIQUE: Imaging protocol: Radiologic exam of the chest. Views: 1 view. COMPARISON: CR XR PORTABLE CHEST AP 12/26/2024 4:23 PM FINDINGS: Limitations: Imaging was obtained at low lung volumes. Lungs: There is diffuse bilateral alveolar opacity, apparently worse compared with the prior exam; however, imaging was obtained at lower lung volumes compared with the prior exam which could artifactually increase the apparent extent of pulmonary consolidation. Pleural spaces: The right costophrenic angle is now obscured. An enlarging pleural effusion could have this appearance; however, overlapping of the scapula, the right hemidiaphragm, and the right 7th rib could probably also account for this appearance. No left-sided pleural effusion or pneumothorax is seen. Heart/Mediastinum: The heart is largely obscured but appears grossly normal in size. Bones/joints: The visualized bony structures appear grossly intact. IMPRESSION: 1. Imaging obtained at low lung volumes. 2. Diffuse bilateral alveolar opacity, apparently worse compared with the recent prior exam from 4:23 p.m. although this apparent change could result from imaging at lower lung volumes compared with the prior study. 3. Possible new right-sided pleural effusion versus an artifactual appearance created by a confluence of normal shadows. Dictated and Authenticated by: Jose Mitchell MD. Orderin Jens Quintero MD
--- NOTE | 2024-12-26 23:45 | DI.RAD_ITS ---
Exam(s) XR PORTABLE CHEST AP POST LINE EXAM: XR PORTABLE CHEST AP POST LINE CLINICAL HISTORY: intubation TECHNIQUE: 2D digital imaging was performed. COMPARISON: CR,XR XR PORTABLE CHEST AP from 12/26/2024 FINDINGS: An endotracheal tube has been inserted with the tip lying at the level of the aortic arch. LUNGS: Slight improvement in pulmonary infiltrates versus differences in technique. No pleural abnor mality seen. HEART: Normal size. AORTA: Normal diameter. BONES: Unremarkable for age. Soft tissues: Unremarkable. IMPRESSION: Satisfactory placement of endotracheal tube. DATA REPOSITORY: RADIATION DOSE DELIVERED:
[2024-12-27] VITALS (9 sets, daily range): BP systolic 115–136; BP diastolic 67–77; PULSE 72–87; RESP 16–58; O2SAT 90–95
--- NOTE | 2024-12-27 00:15 | DI.RAD_ITS ---
Exam(s) XR PORTABLE CHEST AP POST LINE EXAM: XR PORTABLE CHEST AP POST LINE CLINICAL HISTORY: tube adjustment TECHNIQUE: 2D digital imaging was performed. COMPARISON: CR,XR XR PORTABLE CHEST AP POST LINE from 12/27/2024 FINDINGS: The endotracheal tube is unchanged in position. LUNGS: Diffuse bilateral pulmonary infiltrates again noted. Question mild interval improvement versu s differences in technique. No pleural abnormality seen. HEART: Normal size. AORTA: Normal diameter. BONES: Unremarkable for age. Soft tissues: Unremarkable. IMPRESSION: Stable positioning of endotracheal tube. DATA REPOSITORY: RADIATION DOSE DELIVERED:
--- NOTE | 2024-12-27 00:15 | DI.RAD_ITS ---
Exam(s) XR PORTABLE CHEST AP POST LINE EXAM: XR PORTABLE CHEST AP POST LINE CLINICAL HISTORY: tube adjustment TECHNIQUE: 2D digital imaging was performed. COMPARISON: CR,XR XR PORTABLE CHEST AP POST LINE from 12/27/2024 FINDINGS: An endotracheal tube is again noted, unchanged in position. A nasogastric tube is been inserted whi ch projects below the diaphragm, in the fundus of the stomach. LUNGS: Diffuse stable bilateral infiltrates. No pleural abnormality seen. HEART: Normal size. AORTA: Normal diameter. BONES: Unremarkable for age. Soft tissues: Unremarkable. IMPRESSION: Status post placement of nasogastric tube. DATA REPOSITORY: RADIATION DOSE DELIVERED:
--- NOTE | 2024-12-27 00:55 | DI.VRAD_ITS ---
PROCEDURE INFORMATION: Exam: XR Chest Exam date and time: 12/27/2024 12:26 AM Age: 44 years old Clinical indication: Device placement; Other: Intubation TECHNIQUE: Imaging protocol: Radiologic exam of the chest. Views: 1 view. COMPARISON: XR PORTABLE CHEST AP 12/26/2024 10:55 PM FINDINGS: Limitations: The extreme lung apices are excluded from view. Tubes, catheters and devices: There has been interval placement of an endotracheal catheter which terminates 4.0 cm above the sharmila. Lungs: Diffuse bilateral hazy airspace disease is redemonstrated. Pleural spaces: No pleural effusion or pneumothorax is demonstrated. Heart/Mediastinum: The heart is partially obscured but appears normal in size. Bones/joints: The visualized bony structures appear grossly intact, as seen. IMPRESSION: 1. Diffuse hazy bilateral airspace disease redemonstrated. 2. Interval intubation with the tip of the endotracheal catheter located 4.0 cm above the sharmila. Dictated and Authenticated by: Jose Mitchell MD. Orderin Jens Quintero MD
--- NOTE | 2024-12-27 00:58 | DI.VRAD_ITS ---
PROCEDURE INFORMATION: Exam: XR Chest Exam date and time: 12/27/2024 12:31 AM Age: 44 years old Clinical indication: Device placement; Ng tube placement TECHNIQUE: Imaging protocol: Radiologic exam of the chest. Views: 1 view. COMPARISON: CR XR PORTABLE CHEST AP POST LINE 12/27/2024 12:26 AM FINDINGS: Tubes, catheters and devices: There is an endotracheal catheter in-situ with its tip located 4.0 cm above the sharmila. No nasogastric/orogastric catheter is seen. Lungs: The extreme right lung apex is excluded from view. Diffuse hazy airspace disease is redemonstrated. Pleural spaces: No pleural effusion or pneumothorax is demonstrated. Heart/Mediastinum: The heart appears normal in size. Bones/joints: The visualized bony structures appear grossly intact. There are osteophytes along the spinal margin. Gastrointestinal tract: There is prominent gas-filled distension of the stomach and of bowel loops in the upper abdomen as seen on the prior exam. IMPRESSION: No nasogastric/orogastric catheter demonstrated. Dictated and Authenticated by: Jose Mitchell MD. Orderin Dayan Hyman MD
--- NOTE | 2024-12-27 01:00 | DI.VRAD_ITS ---
PROCEDURE INFORMATION: Exam: XR Chest Exam date and time: 12/27/2024 12:38 AM Age: 44 years old Clinical indication: Device placement; Reposition ng tube TECHNIQUE: Imaging protocol: Radiologic exam of the chest. Views: 1 view. COMPARISON: CR XR PORTABLE CHEST AP POST LINE 12/27/2024 12:31 AM FINDINGS: Limitations: The extreme lung apices are excluded from view. Tubes, catheters and devices: An endotracheal catheter terminates 4.1 cm above the sharmila. A nasogastric/orogastric catheter extends into the mid gastric body. There is persistent gas-filled distension of what appears to be the stomach and transverse colon in the upper abdomen. Lungs: Diffuse hazy bilateral airspace disease is redemonstrated, not significantly changed. Pleural spaces: No pleural effusion or pneumothorax is demonstrated. Heart/Mediastinum: The heart appears normal in size. Bones/joints: The visualized bony structures appear grossly intact. There are osteophytes along the thoracic spinal margin. IMPRESSION: Nasogastric/orogastric catheter in-situ with its tip in the mid gastric body. Dictated and Authenticated by: Jose Mitchell MD. Orderin Jens Quintero MD
--- NOTE | 2024-12-27 01:05 | W.PM.DS.N ---
Date of service: 12/27/24 Time of Service: 01:06 DS: Diagnosis Discharge Diagnosis (1) Acute hypoxic respiratory failure: Start date: 12/23/24 Status: Acute Asessment and Plan: Patient is a smoker quitting on admission with bronchospasm and increased mucus secretion, bilateral multifocal pneumonia with elevated progressive despite treatment because hypoxic respiratory failure with progression and early ARDS requiring intubation for mechanical ventilation. Patient was on steroids and PPI IV. Was on IV fluids but did receive 2 doses of Lasix with some diuresis. He was intubated and mechanical dilation on transfer with stable vital signs. Haywood catheter and NG tube are in place. Patient is a full code. (2) Multifocal pneumonia: Start date: 12/23/24 Status: Acute Asessment and Plan: Progressive despite aggressive antibiotic therapy. Viral screening was negative the patient antibiotic coverage was expanded to Bactrim with cefepime and doxycycline IV already being given. Vancomycin was initiated and discontinued when MRSA swab of the nasal passage was negative. Chest x-ray and CT were showing progressive infiltrates during the hospital stay. (3) Opioid dependence on agonist therapy: Status: Chronic Asessment and Plan: Actively using cocaine possibly in the ICU with patient having bags of cocaine when searched after he had an event with possible snorting. These were removed from his room. (4) Alcohol withdrawal: Status: Acute (5) Hypomagnesemia: Status: Resolved (6) Depression: (7) Nicotine dependence: Status: Chronic (8) DVT prophylaxis: Status: Acute Discharge Plan Disposition Patient Disposition: Transfer-Acute Inpatient Care Specific Acute In Facility: [facility] Condition: Deteriorating Discharge Details Reason For Visit: multifocal PNA, acuter hypoxic resp failure Admit Date/Time: 12/23/24 16:25 Admit Provider: Renato Watts Attending Provider: Renato Watts Primary Care Provider: Yulia Miller Hospital Course Hospital Course: This is a 44-year-old male patient who has chronic alcohol use and polysubstance abuse who was admitted for acute hypoxic respiratory failure with multifocal pneumonia with significant responding to IV antibiotic therapy and oxygen supplementation. On his second day of hospitalization the patient began to have increasing oxygen needs and thought to have alcohol withdrawal. He was transferred to ICU and placed on phenobarbital protocol for alcohol withdrawal and was oxygenating fairly with O2 supplementation. His oxygen needs escalated over the next 2 days with increasing tachypnea despite IV antibiotic therapy. 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 CTA of the chest revealed no PE and the bilateral groundglass infiltrates over both lungs more on the left than right. The evening of transfer the patient tachypnea worsened with patient breathing in the 30s as high as 40 with his oxygen needs increasing with 95% FiO2 on BiPAP maximal settings not improving his tachypnea and respiratory distress and not adequately oxygenated at all times. He was intubated with mechanical ventilation this was still requiring respiratory rate of 26 with supportive provide was on FiO2 and a increasing rate last set of 12 with a tidal volume of 550. He was being maintained with sedation with the propofol and Precedex. He has been placed on Precedex. The day when he was placed on BiPAP because of agitation despite phenobarbital treatment for his withdrawal. Patient was found to have bags of cocaine in his room admitted and snorting cocaine the last hospitalization. These were removed. His family was called and the patient having his mother calling frequently about his change in status and [facility] transfer center was called for transfer with [facility] ICU team in [place], [place] with the accepting physician being Dr. Thomas. Patient blood pressure was stable but he continued to require increased respiratory rate to maintain Pulsoxymeter above 90% on mechanical ventilation as above. WBC was elevated at 15,000 with left shift but no eosinophilia, electrolytes were within normal limits with normal renal function, BNP was normal, POCUS did reveal adequate left ventricular ejection fraction with echocardiogram not performed at discharge, patient was on hydrocortisone with steroid slightly up at 134. Physical exam revealed patient with respiratory distress and coarse inspiratory crackles more on the left than right with decreased aeration on the left. Heart rate is normal with no murmurs or gallops appreciated. Abdomen soft nontender with bowel sounds positive. Extremities had no pitting edema. Skin was pale and moist. Neuro has no focalizing findings with the patient was awake. Patient was most sedated during my exam. Assessment/plan: Acute respiratory failure with hypoxemia not responding to aggressive treatment at this facility requiring intubation for progressive respiratory failure with hypoxemia and respiratory fatigue. Patient is on antibiotic therapy including cefepime, doxycycline and Bactrim with some consideration for antifungal treatment but not initiated. Blood cultures are pending at discharge. Home Meds and New Rx's Prescriptions: No Action methadone 10 mg/mL concentrate 130 mg PO DAILY Patient Comments: @ [facility], verified last dose 12/23/24 for 130 mg dicyclomine 10 mg capsule 10 mg PO BID Qty: 4 0RF alum-mag hydroxide-simeth [Mag-Al Plus] 200-200-20 mg/5 mL Suspension 30 ml PO Q2H PRN PRNQty: 3000 0RF simethicone 80 mg Tablet,Chewable 160 mg PO Q6H PRN PRN (Reason: Abdominal Pain) Qty: 30 0RF metoclopramide HCl [Reglan] 10 mg tablet 10 mg PO Q6H PRN (Reason: nausea and vomiting) Qty: 30 0RF fluoxetine 40 mg capsule 40 mg PO DAILY Patient Comments: TAKE ONE CAPSULE BY MOUTH EVERY MORNING gabapentin 600 mg tablet 600 mg PO TID Patient Comments: TAKE ONE TABLET BY MOUTH THREE TIMES A DAY DIRECTED losartan 50 mg tablet 50 mg PO DAILY Patient Comments: TAKE ONE TABLET BY MOUTH EVERY MORNING, FOR HIGH BLOOD PRESSURE aripiprazole 5 mg tablet 5 mg PO DAILY Patient Comments: TAKE ONE TABLET BY MOUTH EVERY DAY bupropion HCl 150 mg tablet extended release 24 hr 150 mg PO DAILY Patient Comments: TAKE ONE TABLET BY MOUTH EVERY DAY hydroxyzine HCl 50 mg tablet 50 mg PO Q8H PRN Patient Comments: TAKE ONE TABLET BY MOUTH EVERY 8 HOURS NEEDED omeprazole 20 mg capsule,delayed release(DR/EC) 20 mg PO DAILY Patient Comments: TAKE ONE CAPSULE BY MOUTH EVERY DAY Discharge Instructions Activity:: Bedrest Equipment/Supplies:: No Equipment Needed Diet:: NPO Discharge Orders Discharge Orders: Discharge Order (Routine); Ordered 12/27/24 Ordered By: Leon Colindres DS: Summary Time Spent with Patient providing and/or coordinating discharge services: Greater than 30 minutes Status at Discharge Functional status at discharge: bed bound Overall status at discharge: patient is not back to baseline Mental Status: other (Sedated) Speech and Movement: other (Endotracheal intubation) Mood: other (Sedated) Affect: other (Delirium and sedated) Quality:SDOH Health Related Social Needs: No Data to Display Exam Narrative Exam Narrative: See physical exam in hospital course. Psych Mental Status: other (Sedated) Speech and Movement: other (Endotracheal intubation) Mood: other (Sedated) Affect: other (Delirium and sedated) DS: Data Vitals/I&O Vitals and I&O: Vital Signs Temperature 36.9 C 12/26/24 23:27 Temperature Source Temporal Artery Scan 12/26/24 23:27 Pulse 78 12/26/24 22:41 Pulse Rhythm Regular 12/23/24 17:16 Pulse 72 12/26/24 18:01 Respiratory Rate 40 H 12/26/24 22:41 Respiratory Effort Normal 12/24/24 02:50 Respiratory Depth Normal 12/24/24 02:50 Respiratory Pattern Normal 12/24/24 02:50 Blood Pressure 110/57 L 12/26/24 18:01 Blood Pressure Mean 73 12/26/24 18:01 Blood Pressure Position Sitting 12/23/24 14:53 Pulse Oximetry 90 L 12/26/24 22:41 Oxygen Delivery Method Bi-pap 12/26/24 23:27 Oxygen Flow Rate 0 12/26/24 08:50 Fraction of Inspired Oxygen (FIO2) 95 12/26/24 22:41 Pain Level 0 12/25/24 16:25 Comment Pt on PRVC (pressure regulated volume control) Settings: tidal volume 450, EPAP 7, RR 15, FIO2 85% 12/26/24 18:41 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 12/25/24 06:01 Intake & Output 12/26/24 12/26/24 12/27/24 11:59 23:59 11:59 Intake Total 2617.333 / 4033.487 1416.154 / 4033.487 Output Total 1520 / 1945 425 / 1945 Balance 1097.333 / 2088.487 991.154 / 2088.487 Weight 90.4 kg Intake: IV 2367.333 / 3483.487 1116.154 / 3483.487 Oral 250 / 550 300 / 550 Output: Urine 1520 / 1945 425 / 1945 Other: Urine Color Dark Juliann Dark Juliann Urine Appearance Clear Clear Urine Odor Foul Foul Data Completed and Pending Labs on day of discharge: Labs from last 24 hours 12/27/24 12/26/24 12/26/24 05:35 22:45 18:03 WBC Pending RBC Pending Hgb Pending Hct Pending MCV Pending MCH Pending MCHC Pending RDW Pending Plt Count Pending MPV Pending Immature Gran % Pending Neutrophils % Pending Lymphocytes % Pending Monocytes % Pending Eosinophils % Pending Basophils % Pending Nucleated RBC % Absolute Neutrophils Pending Absolute Lymphocytes Pending Absolute Monocytes Pending Absolute Eosinophils Pending Absolute Basophils Pending ABG Sample Site Left Radial ABG pH 7.38 ABG pCO2 42 ABG pO2 65 L ABG HCO3 25 ABG Total CO2 23 ABG O2 Saturation 92 L ABG Base Excess 0 VBG pH Pending 7.35 VBG pCO2 Pending 48 VBG pO2 Pending 61 VBG HCO3 Pending 26 VBG Total CO2 Pending 24 VBG O2 Saturation Pending 90 VBG Base Excess Pending 1 Oxygen Liter Flow FiO2 95 Sodium Pending Potassium Pending Chloride Pending Carbon Dioxide Pending Anion Gap Pending BUN Pending Creatinine Pending Est GFR (CKD-EPI 2020) Pending Glucose Pending Calcium Pending Magnesium Pending Random Vancomycin Phenobarbital COVID-19 Source SARS-CoV-2 (PCR) HIV 1&2 Ag/Ab, 4th Gen Influenza Type A (PCR) Influenza Type B (PCR) RSV (PCR) 12/26/24 12/26/24 12/26/24 12:48 10:35 09:40 WBC RBC Hgb Hct MCV MCH MCHC RDW Plt Count MPV Immature Gran % Neutrophils % Lymphocytes % Monocytes % Eosinophils % Basophils % Nucleated RBC % Absolute Neutrophils Absolute Lymphocytes Absolute Monocytes Absolute Eosinophils Absolute Basophils ABG Sample Site ABG pH ABG pCO2 ABG pO2 ABG HCO3 ABG Total CO2 ABG O2 Saturation ABG Base Excess VBG pH 7.38 VBG pCO2 44 VBG pO2 61 VBG HCO3 26 VBG Total CO2 24 VBG O2 Saturation 91 VBG Base Excess 1 Oxygen Liter Flow FiO2 Sodium 136 Potassium 4.3 Chloride 104 Carbon Dioxide 26.8 Anion Gap 5.2 BUN 4 L Creatinine 0.8 Est GFR (CKD-EPI 2020) 111.22 Glucose 134 H Calcium 9.0 Magnesium Random Vancomycin Phenobarbital 12.9 L COVID-19 Source Nasopharynx SARS-CoV-2 (PCR) Negative HIV 1&2 Ag/Ab, 4th Gen Influenza Type A (PCR) Negative Influenza Type B (PCR) Negative RSV (PCR) Negative 12/26/24 12/26/24 12/26/24 06:00 01:38 01:20 WBC 14.54 H 14.68 H RBC 4.04 L 4.19 L Hgb 12.7 L 12.9 L Hct 37.7 L 39.5 L MCV 93 94 MCH 31.4 30.8 MCHC 33.7 32.7 RDW 13.9 13.8 Plt Count 323 313 MPV 9.0 8.8 Immature Gran % 0.5 Neutrophils % 87.3 Lymphocytes % 5.8 Monocytes % 5.0 Eosinophils % 1.1 Basophils % 0.3 Nucleated RBC % 0.0 Absolute Neutrophils 12.69 H Absolute Lymphocytes 0.84 L Absolute Monocytes 0.73 Absolute Eosinophils 0.16 Absolute Basophils 0.04 ABG Sample Site Right Radial ABG pH 7.38 ABG pCO2 44 ABG pO2 69 L ABG HCO3 26 ABG Total CO2 24 ABG O2 Saturation 93 L ABG Base Excess 1 VBG pH VBG pCO2 VBG pO2 VBG HCO3 VBG Total CO2 VBG O2 Saturation VBG Base Excess Oxygen Liter Flow 75 FiO2 Sodium Potassium Chloride Carbon Dioxide Anion Gap BUN Creatinine Est GFR (CKD-EPI 2020) Glucose Calcium Magnesium 1.6 Random Vancomycin 35.7 Phenobarbital COVID-19 Source SARS-CoV-2 (PCR) HIV 1&2 Ag/Ab, 4th Gen Pending Influenza Type A (PCR) Influenza Type B (PCR) RSV (PCR) 12/26/24 01:33 Blood Blood Culture - Pending 12/26/24 01:33 Blood Blood Culture - Pending Preliminary micro results at discharge 12/26/24 01:33 Blood Culture - Pending Blood 12/26/24 01:33 Blood Culture - Pending Blood PFSH All Active Problems (Updated 12/27/24 @ 01:09 by Leon Colindres) DVT prophylaxis (Acute) Alcohol withdrawal (Acute) Acute hypoxic respiratory failure (Acute) Multifocal pneumonia (Acute) Abdominal cramping (Acute) Ileus (Acute) Acute hypokalemia (Acute) HTN (hypertension) (Chronic) Suicide ideation (Acute) Polysubstance abuse (Chronic) Opioid use disorder (Acute) Nicotine dependence (Chronic) Opioid dependence on agonist therapy (Chronic) Alcohol dependence (Chronic) Medical History Pancreatitis DVT (deep venous thrombosis) History of osteomyelitis Hepatitis B Hepatitis C Depression Alcohol withdrawal Polysubstance abuse Family History Other Alcohol use disorder Depression Social History Smoking/Tobacco Use Status: Current every day Tobacco Type: cigarettes Smoking risk assessment performed?: Yes Alcohol Intake: current Alcohol Intake frequency: 3 or more drinks per day Alcohol type: hard liquor Drug use: Daily Substance use type: marijuana Details: Pt states he last used marijuana 10/23/24 Last used ETOH about 10/16/24 Housing: house Do you feel safe at home: Yes Do you feel safe in your relationship?: Yes Time Spent with Patient Time Spent with Patient: >85 minutes Time was spent: preparing to see the patient(eg.review tests), ordering medications,tests, procedures, referring, communicating with other health career counselor, indepentently interpreting results, care coordination and other (120 minutes spent in ICU at patient's bedside coordinating transfer, intubation by ED provider and modify medical therapy with patient critically ill with imminent decompensation)
[2024-12-27] MEDS: DEXTROSE 5%-LACTATED RINGERS 1,000 ML 80 ML IV (02:13)
--- NOTE | 2024-12-27 02:21 | W.ED.PROC ---
Date of service: 12/26/24 Time of Service: 23:40 Procedures Intubation Time out performed: Yes sedative: Etomidate Mg Given: 20 paralytic: Rocuronium Mg Given: 100 Laryngoscope: fiberoptic video scope ET Tube Size: 7.5 ET Tube Uncuffed: Yes Tube Secured Depth (cm): 22 Tube Secured Location: teeth Tube Placement Confirmation: visualized tube passing through cords, equal breath sounds bilaterally, no breath sounds over epigastrum and confirmation by capnometry Patient Tolerated Procedure: well and no complications Intubation Complications: hypoxia Additional Comments: I was contacted by Dr. Colindres to come and intubate the patient as he was on BiPAP at 100% FiO2 and transitioning towards the low 90s to the high 80s. Decision was made to intubate the patient. Patient was quite confused and unable to answer questions. Patient had was extremely tachypneic on the BiPAP and it was suspected he had a very low oxygen reserve. Upon RSI medication administration the BiPAP was taken off and the patient immediately plummeted toward notable hypoxemia within the first 5 seconds. He was rapidly intubated without complication, and total procedure was less than 10 to 15 seconds. However by the time the patient was attached to the ventilator and breaths were started he was already at 74% for pulse oximetry. Rate was increased, and patient rapidly came back up to the mid 90s with appropriate ventilator management. Medical Decision Making Quality:SDOH Health Related Social Needs: No Data to Display
[2024-12-27] MEDS: Etomidate 20 MG/10 ML VIAL IVP (02:27)
[2024-12-27] MEDS: dexmedeTOMidine IN 0.9 % NACL 400 MCG/100 ML BTL 27.12 MCG IV (02:38)
[2024-12-27 03:15] LABS: BE 0 mmol/L (-2-3); HCO3 27 mmol/L (22-26); pCO2 59 mmHg (35-45); pH 7.27 (7.35-7.45); pO2 91 mmHg (80-105); sO2 96 % (95-98); tCO2 25 mmol/L (23-27)
[2024-12-27 03:18] LABS: FIO2 100 %; Site Right Radial
[2024-12-27] MEDS: PROPOFOL 1,000 MG/100 ML BTL 16 MG (04:19)
[2024-12-27 10:46] LABS: HIV-1/2 Ag & Ab Screen Negative (Negative)
== END 2024-12-27 03:15 | disposition short-term general hospital (02) | DRG 208 ==
LOC: ER 16:29 → MS 17:13 → ICU 12-24 02:29
PROVIDERS: Family Medicine; Admitting Provider Family Medicine; Emergency Provider Emergency Medicine; PCP Nurse Practitioner Family; Responsible Provider Family Medicine; Visit Provider Family Medicine
DX: J18.9 Pneumonia, unspecified organism (principal); A41.9 Sepsis, unspecified organism; J96.01 Acute respiratory failure with hypoxia; F11.20 Opioid dependence, uncomplicated; F10.239 Alcohol dependence with withdrawal, unspecified; E83.42 Hypomagnesemia; F17.210 Nicotine dependence, cigarettes, uncomplicated; I10 Essential (primary) hypertension; Z86.718 Personal history of other venous thrombosis and embolism; J98.01 Acute bronchospasm; R00.1 Bradycardia, unspecified; F32.A Depression, unspecified; F19.10 Other psychoactive substance abuse, uncomplicated
CPT/HCPCS: 36410; 31500; 00123; 36415; 36592; 71045; 71275; 80048; 80053; 80076; 80307; 82805; 83690; 85027; 87040; 87389; 87637; 87641; 93005; 94640; 96365; 96368; 99291; J1650; 36600; 71046; 80184; 80202; 80320; 81003; 83735; 83880; 84100; 84484; 85025; 85379; 93010; 94002; 94660; 94664; 94760; 99223; 99233; 99239; J0131; J0692; J0696; J0780; J1720; J1941; J2060; J2270; J2470; J2560; J2704; J3370; J3411; J3475; J3490; J7613; J7620

== ENCOUNTER 2025-02-25 00:12 | Outpatient (CLI) | payer MEDICAID, SELFPAY ==
--- NOTE | 2025-02-25 11:22 | DI.RAD_ITS ---
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 TECHNIQUE: 2D digital imaging was performed. COMPARISON: CR,XR XR PORTABLE CHEST AP POST LINE from 12/27/2024 CR,XR XR PORTABLE CHEST AP POST LINE from 12/27/2024 FINDINGS: 2 views: Heart size is upper normal. The mediastinum is not widened. There is still extensive infiltrate in both lungs. The mild improvement when compared to 12/27/2024. No obvious pleural effusions. IMPRESSION: Persistent bilateral infiltrates with mild improvement from previous. No obvious pleural effusions. DATA REPOSITORY: RADIATION DOSE DELIVERED:
== END 2025-02-25 00:32 ==
LOC: DI 00:12
PROVIDERS: PCP Student in an Organized Health Care Education/Training Program; Visit Provider Student in an Organized Health Care Education/Training Program
DX: J84.10 Pulmonary fibrosis, unspecified (principal)
CPT/HCPCS: 71046

== ENCOUNTER 2025-02-28 11:20 | Inpatient (IN) | payer MEDICAID, SELFPAY ==
[2025-02-28] VITALS (28 sets, daily range): BP systolic 113–147; BP diastolic 55–98; PULSE 55–68; RESP 3–30; TEMP 36–36.5; O2SAT 95–100
--- NOTE | 2025-02-28 11:30 | DI.RAD_ITS ---
Exam(s) XR CHEST 2V PA LATERAL EXAM: XR CHEST 2V PA LATERAL CLINICAL HISTORY: SOB, hypoxia TECHNIQUE: 2D digital imaging was performed. Two views. COMPARISON: CR XR CHEST 2V PA LATERAL from 02/25/2025 FINDINGS: Exam is limited by overlying monitoring leads and poor pulmonary inflation. HEART: Normal size. Aorta: Not dilated. PULMONARY VASCULATURE: Normal. MEDIASTINUM: Unremarkable. LUNGS: Roughly stable bilateral upper and lower lobe infiltrates. PLEURAL SPACE: No pleural effusion or pneumothorax. BONE:Unremarkable for age. SOFT TISSUES: Unremarkable. IMPRESSION: Roughly stable extensive bilateral infiltrates DATA REPOSITORY: RADIATION DOSE DELIVERED:
--- NOTE | 2025-02-28 11:40 | W.ED.GENAD ---
Discharge Plan Disposition Patient Disposition: Admit to [facility] Condition: Fair Discharge Details Chief Complaint: SOB Clinical Impression: Acute respiratory failure with hypoxia and hypercarbia Primary Care Provider: Renny Rollins ED Provider: Pat Valdovinos Home Meds and New Rx's Prescriptions: No Action methadone 10 mg/mL concentrate 130 mg PO DAILY Patient Comments: @ [facility], verified last dose 12/23/24 for 130 mg dicyclomine 10 mg capsule 10 mg PO BID Qty: 4 0RF alum-mag hydroxide-simeth [Mag-Al Plus] 200-200-20 mg/5 mL Suspension 30 ml PO Q2H PRN PRNQty: 3000 0RF simethicone 80 mg Tablet,Chewable 160 mg PO Q6H PRN PRN (Reason: Abdominal Pain) Qty: 30 0RF metoclopramide HCl [Reglan] 10 mg tablet 10 mg PO Q6H PRN (Reason: nausea and vomiting) Qty: 30 0RF fluoxetine 40 mg capsule 40 mg PO DAILY Patient Comments: TAKE ONE CAPSULE BY MOUTH EVERY MORNING gabapentin 600 mg tablet 600 mg PO TID Patient Comments: TAKE ONE TABLET BY MOUTH THREE TIMES A DAY DIRECTED losartan 50 mg tablet 50 mg PO DAILY Patient Comments: TAKE ONE TABLET BY MOUTH EVERY MORNING, FOR HIGH BLOOD PRESSURE aripiprazole 5 mg tablet 5 mg PO DAILY Patient Comments: TAKE ONE TABLET BY MOUTH EVERY DAY bupropion HCl 150 mg tablet extended release 24 hr 150 mg PO DAILY Patient Comments: TAKE ONE TABLET BY MOUTH EVERY DAY hydroxyzine HCl 50 mg tablet 50 mg PO Q8H PRN Patient Comments: TAKE ONE TABLET BY MOUTH EVERY 8 HOURS NEEDED omeprazole 20 mg capsule,delayed release(DR/EC) 20 mg PO DAILY Patient Comments: TAKE ONE CAPSULE BY MOUTH EVERY DAY HPI General Mode of arrival: EMS. Date/Time Provider Initiated Documentation: 02/28/25 11:32. Information obtained by: patient, EMS and old records reviewed. HPI Narrative: This is a 44-year-old male patient with a recent admission to our facility for hypoxic respiratory failure requiring intubation due to multifocal pneumonia, with a question of reactive airway disease versus pulmonary fibrosis. He has a history of polysubstance use disorder, hypertension, and is presenting today with EMS for shortness of breath and hypoxia. At home the patient wears 4 L of oxygen when at rest, and 8 L of oxygen during exertion. He states that this morning he began to have worsening shortness of breath, and had to increase his home O2 to 8 LPM with no improvement in his work of breathing. EMS found him to be saturating at 87 to 88%, increase his oxygen to 15 L by mask and brought him into the emergency department for evaluation. The patient reports that he has had significant congestion, with postnasal drip, cough that is not productive of any sputum. He denies chest pain, has not noted any fevers. EMS provided him with nebulizer treatments that did improve his symptoms quite a bit. Related Data Home Medications ?Medication ?Instructions ?Recorded ?Confirmed methadone 10 mg/mL oral concentrate 130 mg PO DAILY 10/10/23 12/24/24 aluminum-mag hydroxide-simethicone 30 ml PO Q2H PRN PRN #3,000 mL 10/21/24 12/23/24 200 mg-200 mg-20 mg/5 mL oral susp (Mag-Al Plus) simethicone 80 mg chewable tablet 160 mg (2 x 80 mg) PO Q6H PRN PRN 10/21/24 12/23/24 Abdominal Pain #30 tabs metoclopramide HCl 10 mg tablet 10 mg PO Q6H PRN nausea and 10/23/24 12/23/24 (Reglan) vomiting #30 tabs dicyclomine 10 mg capsule 10 mg PO BID #4 caps 10/26/24 12/23/24 aripiprazole 5 mg tablet 5 mg PO DAILY 12/23/24 12/23/24 bupropion HCl 150 mg 24 hr tablet, 150 mg PO DAILY 12/23/24 12/23/24 extended release fluoxetine 40 mg capsule 40 mg PO DAILY depression 12/23/24 12/23/24 gabapentin 600 mg tablet 600 mg PO TID 12/23/24 12/23/24 hydroxyzine HCl 50 mg tablet 50 mg PO Q8H PRN 12/23/24 12/23/24 losartan 50 mg tablet 50 mg PO DAILY 12/23/24 12/23/24 omeprazole 20 mg capsule,delayed 20 mg PO DAILY 12/23/24 12/23/24 release Previous Rx's ?Medication ?Instructions ?Recorded aluminum-mag hydroxide-simethicone 30 ml PO Q2H PRN PRN #3,000 mL 10/21/24 200 mg-200 mg-20 mg/5 mL oral susp (Mag-Al Plus) simethicone 80 mg chewable tablet 160 mg (2 x 80 mg) PO Q6H PRN PRN 10/21/24 Abdominal Pain #30 tabs metoclopramide HCl 10 mg tablet 10 mg PO Q6H PRN nausea and 10/23/24 (Reglan) vomiting #30 tabs dicyclomine 10 mg capsule 10 mg PO BID #4 caps 10/26/24 Allergies Allergy/AdvReac Type Severity Reaction Status Date / Time No Known Allergies Allergy Verified 12/23/24 14:59 General Stated Complaint: SOB RAVEN: 2 Exam Narrative Exam Narrative: Gen: Awake and alert, in no apparent distress HEENT: Non-icteric sclera Neck: Supple Lungs: Tachypnea and shallow breathing with decreased air movement, bilateral crackles. CV: Appears well perfused, heart with regular rate and rhythm, no murmurs auscultated, strong pulses Abdomen: Non-distended MSK: Moves 4 extremities without apparent limitation in ROM. No peripheral edema noted Skin: Visualized skin without rashes, cyanosis. Neuro: Normal Gait, no obvious focal deficits or facial asymmetry. Speaks in full, clear sentences. Psych: Appropriate for situation. Course Vital Signs Vital signs: Vital Signs Respiratory Rate 19 02/28/25 11:21 Temperature 36.1 C L 02/28/25 11:27 Temperature Source Axillary 02/28/25 11:27 Pulse 62 02/28/25 11:31 Pulse 62 02/28/25 11:31 Respiratory Rate 21 02/28/25 11:31 Respiratory Effort Normal 02/28/25 11:27 Respiratory Depth Normal 02/28/25 11:27 Respiratory Pattern Tachypnea 02/28/25 11:27 Blood Pressure 126/82 02/28/25 11:30 Blood Pressure Mean 95 02/28/25 11:30 Blood Pressure Position Sitting 02/28/25 11:27 Pulse Oximetry 100 02/28/25 11:31 Oxygen Delivery Method Non-Rebreather 02/28/25 11:27 Medical Decision Making This is a 44-year-old male patient presenting for evaluation of shortness of breath and hypoxia. Differential includes but is not limited to hypoxic respiratory failure, reactive airway disease exacerbation, pulmonary fibrosis, pulmonary edema, pleural effusion, pneumothorax. Considered infectious etiologies including viral URI, pneumonia, bronchitis. We will titrate the patient's oxygen with a goal to maintain sats greater than 93%. I will provide him with a duo nebulizer treatment and Solu-Medrol given the potential for reactive airway disease component to his shortness of breath. We will obtain a viral swab, VBG, CBC, CMP, magnesium, troponin, and chest x-ray. - I independently interpreted the laboratory studies, which show no significant leukocytosis, anemia, or thrombocytopenia. The chemistry panel is without evidence of electrolyte abnormality, kidney dysfunction, or liver injury. Troponin undetectable. VBG is most notable for hypercarbia to 73 without associated acidosis. COVID swab negative. I did repeat the VBG after his initial duo nebulizer and steroids, and did repeat the duo nebulizer given the improvement in the patient's work of breathing and oxygen requirement afterwards. Repeat VBG shows that the CO2 is decreasing slightly to 67. At this time, the patient is at his baseline 4 L of oxygen and I do not see an indication to advance to noninvasive positive pressure ventilation. Chest x-ray shows multifocal consolidations which are grossly stable from priors but still significantly concerning appearing, and given his history and change in cough and secretion production I did provide this patient with antibiosis to include cefepime and azithromycin. I also obtain blood cultures given his recent hospitalization. The patient was graciously accepted to the hospitalist service for ongoing workup and management, was transferred from our department without incident. Pat Valdovinos MD Medical Records Medical records reviewed: Yes I reviewed the patient's medical records. Lab Data Lab results reviewed: Yes I reviewed the patient's lab results. Quality:SDOH Health Related Social Needs: No Data to Display PFSH All Active Problems (Updated 02/28/25 @ 14:37 by Pat Valdovinos MD) Acute respiratory failure with hypoxia and hypercarbia (Acute) DVT prophylaxis (Acute) Alcohol withdrawal (Acute) Acute hypoxic respiratory failure (Acute) Multifocal pneumonia (Acute) Abdominal cramping (Acute) Ileus (Acute) Acute hypokalemia (Acute) HTN (hypertension) (Chronic) Suicide ideation (Acute) Polysubstance abuse (Chronic) Opioid use disorder (Acute) Nicotine dependence (Chronic) Opioid dependence on agonist therapy (Chronic) Alcohol dependence (Chronic) Medical History Pancreatitis DVT (deep venous thrombosis) History of osteomyelitis Hepatitis B Hepatitis C Depression Alcohol withdrawal Polysubstance abuse Family History Other Alcohol use disorder Depression Social History Smoking/Tobacco Use Status: Current every day Tobacco Type: cigarettes Smoking risk assessment performed?: Yes Alcohol Intake: current Alcohol Intake frequency: 3 or more drinks per day Alcohol type: hard liquor Drug use: Daily Substance use type: marijuana Details: Pt states he last used marijuana 10/23/24 Last used ETOH about 10/16/24 Housing: house Do you feel safe at home: Yes Do you feel safe in your relationship?: Yes
[2025-02-28] MEDS: Albuterol/Ipratropium 3 ML UPD VIAL UPD ×3 (11:43→17:14)
[2025-02-28] MEDS: methylPREDNISolone SUCC 125 MG VIAL IVP (11:58)
[2025-02-28 12:02] LABS: Abs Immature Grans 0.02 10^3/uL (0.0-0.06); Absolute Basophil Count 0.03 10^3/uL (0.0-0.2); Absolute Eosinophil Count 0.49 10^3/uL (0.0-0.7); Absolute Lymphocyte Count 1.29 10^3/uL (1.2-3.4); Absolute Monocyte Count 0.55 10^3/uL (0.1-0.8); Absolute Neutrophil Count 3.63 10^3/uL (1.2-6.7); BE (Venous) 11 mmol/L (-2-3); Basophils % 0.5 %; Eosinophils % 8.2 %; HCO3 (Venous) 37 mmol/L (23-28); HCT 42.2 % (40.0-50.0); HGB 13.8 g/dL (13.5-17.5); Immature Grans % 0.3 %; Lymphocytes % 21.5 %; MCH 30.1 pg (27.0-33.0); MCHC 32.7 % (32.0-36.0); MCV 92 fL (80-95); MPV 8.8 fL (8.0-11.0); Monocytes % 9.2 %; Neutrophils % 60.3 %; O2 Sat (Venous) 43 %; Platelet Count 303 10^3/uL (130-400); RBC 4.59 10^6/uL (4.36-5.78); RDW 14.5 % (11.8-14.1); RDW-SD 48.8 fL; TCO2 (Venous) 34 mmol/L (24-29); WBC 6.01 10^3/uL (4.4-10.8); pH (Venous) 7.31 (7.31-7.41); pO2 (Venous) 29 mmHg
[2025-02-28 12:03] LABS: pCO2 (Venous) 73 mmHg (41-51)
[2025-02-28 12:29] LABS: ALT 15 U/L (16-63); AST 18 U/L (15-37); Albumin 3.1 g/dL (3.4-5.0); Alkaline Phosphatase 94 U/L (46-116); Anion Gap 5.8 mmol/L (3-11); BUN 3 mg/dL (7-18); Bilirubin, Total 0.4 mg/dL (0.2-1.0); CO2 36.2 mmol/L (21.0-32.0); CREATININE 0.7 mg/dL (0.70-1.30); Calcium 9.6 mg/dL (8.5-10.1); Chloride 101 mmol/L (98-107); Glucose 85 mg/dL (74-106); Magnesium 1.9 mg/dL (1.8-2.4); Potassium 4.4 mmol/L (3.5-5.1); Sodium 143 mmol/L (136-145); Total Protein 7.9 g/dL (6.4-8.2)
[2025-02-28 12:31] LABS: Troponin I < 4 ng/L (<or=76)
[2025-02-28 12:36] LABS: COVID-19 PCR Negative (Negative); Influenza A PCR Negative (Negative); Influenza B PCR Negative (Negative); RSV PCR Negative (Negative)
[2025-02-28 12:37] LABS: Source Nasopharynx
[2025-02-28 12:37] LABS: BE (Venous) 10 mmol/L (-2-3); HCO3 (Venous) 36 mmol/L (23-28); O2 Sat (Venous) 73 %; TCO2 (Venous) 33 mmol/L (24-29); pH (Venous) 7.34 (7.31-7.41); pO2 (Venous) 43 mmHg
[2025-02-28 12:39] LABS: pCO2 (Venous) 67 mmHg (41-51)
[2025-02-28] MEDS: CEFEPIME 1 GM in Normal Saline 50 ML IVPB (14:20)
[2025-02-28] MEDS: AZITHROMYCIN 500 MG in Normal Saline 250 ML 250 MG IVPB (15:05)
--- NOTE | 2025-02-28 15:14 | W.PC.ACHO ---
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 Pt requires 8lpm NC with any type of exertion at baseline , room air Spo2 on 8 lpm was 88%. Pt reports no fevers. EMS gave two nebs with great improvement. Medical / Surgical History (Last Reviewed 10/17/24 @ 21:35 by Leon Colindres) Pancreatitis DVT (deep venous thrombosis) History of osteomyelitis Hepatitis B Hepatitis C Depression Polysubstance abuse Most Recent Vital Signs Temperature 36.1 C L 02/28/25 11:27 Temperature Source Axillary 02/28/25 11:27 Pulse 63 02/28/25 12:50 Pulse 63 02/28/25 12:50 Respiratory Rate 20 02/28/25 12:50 Respiratory Effort Normal 02/28/25 11:27 Respiratory Depth Normal 02/28/25 11:27 Respiratory Pattern Tachypnea 02/28/25 11:27 Blood Pressure 113/55 L 02/28/25 12:46 Blood Pressure Mean 74 02/28/25 12:46 Blood Pressure Position Sitting 02/28/25 11:27 Pulse Oximetry 97 02/28/25 12:50 Oxygen Delivery Method Nasal Cannula 02/28/25 12:16 Oxygen Flow Rate 4 02/28/25 12:16 Allergies No Known Allergies Allergy (Verified 12/23/24 14:59) Precautions Isolation Standard precaution 02/28/25 11:27 IV IV Catheter Type [Right Peripheral IV Antecubital] IV Catheter Gauge [Right 18 Antecubital] Diagnostics 02/28/25 02/28/25 02/28/25 Range/Units 14:32 12:32 12:30 WBC (4.4-10.8) 10^3/uL RBC (4.36-5.78) 10^6/uL Hgb (13.5-17.5) g/dL Hct (40.0-50.0) % MCV (80-95) fL MCH (27.0-33.0) pg MCHC (32.0-36.0) % RDW (11.8-14.1) % Plt Count (130-400) 10^3/uL MPV (8.0-11.0) fL Immature Gran % % Neutrophils % % Lymphocytes % % Monocytes % % Eosinophils % % Basophils % % Nucleated RBC % (0.0-0.3) % Absolute Neutrophils (1.2-6.7) 10^3/uL Absolute Lymphocytes (1.2-3.4) 10^3/uL Absolute Monocytes (0.1-0.8) 10^3/uL Absolute Eosinophils (0.0-0.7) 10^3/uL Absolute Basophils (0.0-0.2) 10^3/uL VBG pH 7.34 (7.31-7.41) VBG pCO2 67 H* (41-51) mmHg VBG pO2 43 mmHg VBG HCO3 36 H (23-28) mmol/L VBG Total CO2 33 H (24-29) mmol/L VBG O2 Saturation 73 % VBG Base Excess 10 H (-2-3) mmol/L Sodium (136-145) mmol/L Potassium (3.5-5.1) mmol/L Chloride (98-107) mmol/L Carbon Dioxide (21.0-32.0) mmol/L Anion Gap (3-11) mmol/L BUN (7-18) mg/dL Creatinine (0.70-1.30) mg/dL Est GFR (CKD-EPI 2020) (mL/min/1.73m2) Glucose (74-106) mg/dL Calcium (8.5-10.1) mg/dL Magnesium (1.8-2.4) mg/dL Total Bilirubin (0.2-1.0) mg/dL AST (15-37) U/L ALT (16-63) U/L Alkaline Phosphatase (46-116) U/L Troponin I Cancelled Cancelled (<or=76) ng/L Total Protein (6.4-8.2) g/dL Albumin (3.4-5.0) g/dL COVID-19 Source SARS-CoV-2 (PCR) (Negative) Influenza Type A (PCR) (Negative) Influenza Type B (PCR) (Negative) RSV (PCR) (Negative) 02/28/25 02/28/25 Range/Units 11:55 11:50 WBC 6.01 (4.4-10.8) 10^3/uL RBC 4.59 (4.36-5.78) 10^6/uL Hgb 13.8 (13.5-17.5) g/dL Hct 42.2 (40.0-50.0) % MCV 92 (80-95) fL MCH 30.1 (27.0-33.0) pg MCHC 32.7 (32.0-36.0) % RDW 14.5 H (11.8-14.1) % Plt Count 303 (130-400) 10^3/uL MPV 8.8 (8.0-11.0) fL Immature Gran % 0.3 % Neutrophils % 60.3 % Lymphocytes % 21.5 % Monocytes % 9.2 % Eosinophils % 8.2 % Basophils % 0.5 % Nucleated RBC % 0.0 (0.0-0.3) % Absolute Neutrophils 3.63 (1.2-6.7) 10^3/uL Absolute Lymphocytes 1.29 (1.2-3.4) 10^3/uL Absolute Monocytes 0.55 (0.1-0.8) 10^3/uL Absolute Eosinophils 0.49 (0.0-0.7) 10^3/uL Absolute Basophils 0.03 (0.0-0.2) 10^3/uL VBG pH 7.31 (7.31-7.41) VBG pCO2 73 H* (41-51) mmHg VBG pO2 29 mmHg VBG HCO3 37 H (23-28) mmol/L VBG Total CO2 34 H (24-29) mmol/L VBG O2 Saturation 43 % VBG Base Excess 11 H (-2-3) mmol/L Sodium 143 (136-145) mmol/L Potassium 4.4 (3.5-5.1) mmol/L Chloride 101 (98-107) mmol/L Carbon Dioxide 36.2 H (21.0-32.0) mmol/L Anion Gap 5.8 (3-11) mmol/L BUN 3 L (7-18) mg/dL Creatinine 0.7 (0.70-1.30) mg/dL Est GFR (CKD-EPI 2020) 115.80 (mL/min/1.73m2) Glucose 85 (74-106) mg/dL Calcium 9.6 (8.5-10.1) mg/dL Magnesium 1.9 (1.8-2.4) mg/dL Total Bilirubin 0.4 (0.2-1.0) mg/dL AST 18 (15-37) U/L ALT 15 L (16-63) U/L Alkaline Phosphatase 94 (46-116) U/L Troponin I < 4 (<or=76) ng/L Total Protein 7.9 (6.4-8.2) g/dL Albumin 3.1 L (3.4-5.0) g/dL COVID-19 Source Nasopharynx SARS-CoV-2 (PCR) Negative (Negative) Influenza Type A (PCR) Negative (Negative) Influenza Type B (PCR) Negative (Negative) RSV (PCR) Negative (Negative) 02/28/25 14:30 Blood Culture - Pending Blood 02/28/25 13:45 Blood Culture - Pending Blood Intake and Output - 24 Hour Total 02/28/25 11:12 thru 02/28/25 15:05 Intake Total 50 Balance 50 Weight 81.647 kg Intake: IV 50 Falls Risk Assessment History of Falls No History 02/28/25 11:27 Fall Total Score 0 02/28/25 11:27 Level of Risk Standard/Low Risk 02/28/25 11:27 v v v v v v v v v Sending and/or Receiving Nurses: Please use comment section below to note any information pertinent to the patient hand-off not included above. Information / Comments: Report received from:alfredo
--- NOTE | 2025-02-28 17:18 | HPE_ITS ---
Date of service: 02/28/25 Time of Service: 17:18 Assessment and Plan Assessment and plan (1) Multifocal pneumonia: Status: Acute Assessment and plan: -As seen on chest x-ray and now CT -Patient does now meet sepsis criteria with fever, elevated WBC, elevated RR, and pneumonia Continue cefepime -MRSA swab pending Continue azithromycin and cefepime Nebs Prednisone Acapella IS (2) Acute hypoxic respiratory failure: Status: Acute Assessment and plan: - Presumed secondary to multifocal pneumonia as noted above COPD (3) Opioid dependence on agonist therapy: Status: Chronic Assessment and plan: - Will continue home methadone. (4) Depression: Assessment and plan: Continue home meds (5) Nicotine dependence: Status: Chronic Assessment and plan: NRT prn (6) DVT prophylaxis: Status: Acute Assessment and plan: enoxaparin History of Present Illness History of Present Illness Chief Complaint: Difficulty breathing Narrative: 44-year-old male with a history of hypoxic respiratory failure (requiring prior intubation for multifocal pneumonia), reactive airway disease vs pulmonary fibrosis, polysubstance use disorder, hypertension, and chronic supplemental oxygen use (4L at rest, 8L on exertion), presents via EMS with acute worsening dyspnea and hypoxia. This morning, he noted increased shortness of breath unrelieved by increasing his home oxygen to 8LPM. EMS found him hypoxic with SpO 87?88% and placed him on 15L NRB during transport. He reports associated symptoms of congestion, postnasal drip, and non-productive cough. He denies chest pain, fever, or chills. He did note symptomatic improvement with EMS-administered nebulizers. On ED arrival, he was tachypneic with shallow breathing and bilateral crackles on auscultation. Initial VBG demonstrated hypercarbia (CO2 73), which improved slightly (CO2 67) after treatment with nebulized bronchodilators and systemic steroids. Chest X-ray revealed multifocal consolidations, stable compared to prior imaging but still concerning. Labs were unremarkable (no leukocytosis, no electrolyte derangements, negative troponin, normal renal and liver function), and COVID PCR was negative. Patient stabilized on 4L O2 by nasal cannula (return to baseline), was started on cefepime and azithromycin for possible bacterial pneumonia, and admitted to the medical floor for continued management and monitoring. Review of Systems All systems reviewed & are unremarkable except as noted in HPI and below PFSH All Active Problems (Updated 02/28/25 @ 14:37 by Pat Valdovinos MD) Acute respiratory failure with hypoxia and hypercarbia (Acute) DVT prophylaxis (Acute) Alcohol withdrawal (Acute) Acute hypoxic respiratory failure (Acute) Multifocal pneumonia (Acute) Abdominal cramping (Acute) Ileus (Acute) Acute hypokalemia (Acute) HTN (hypertension) (Chronic) Suicide ideation (Acute) Polysubstance abuse (Chronic) Opioid use disorder (Acute) Nicotine dependence (Chronic) Opioid dependence on agonist therapy (Chronic) Alcohol dependence (Chronic) Medical History Pancreatitis DVT (deep venous thrombosis) History of osteomyelitis Hepatitis B Hepatitis C Depression Alcohol withdrawal Polysubstance abuse Family History Other Alcohol use disorder Depression Social History Smoking/Tobacco Use Status: Current every day Tobacco Type: cigarettes Smoking risk assessment performed?: Yes Alcohol Intake: current Alcohol Intake frequency: 3 or more drinks per day Alcohol type: hard liquor Drug use: Daily Substance use type: marijuana Details: Pt states he last used marijuana 10/23/24 Last used ETOH about 10/16/24 Housing: house Do you feel safe at home: Yes Do you feel safe in your relationship?: Yes Meds Allergies and Home Medications Allergies Allergy/AdvReac Type Severity Reaction Status Date / Time No Known Allergies Allergy Verified 12/23/24 14:59 Home Medications ?Medication ?Instructions ?Recorded ?Confirmed ?Type methadone 10 mg/mL oral concentrate 130 mg PO DAILY 10/10/23 02/28/25 History aripiprazole 5 mg tablet 5 mg PO DAILY 12/23/24 02/28/25 History bupropion HCl 150 mg 24 hr tablet, 150 mg PO DAILY 12/23/24 02/28/25 History extended release fluoxetine 40 mg capsule 40 mg PO DAILY depression 12/23/24 02/28/25 History gabapentin 600 mg tablet 600 mg PO TID 12/23/24 02/28/25 History hydroxyzine HCl 50 mg tablet 10 mg PO Q8H PRN 12/23/24 02/28/25 History losartan 50 mg tablet 50 mg PO DAILY 12/23/24 02/28/25 History folic acid 1 mg tablet 1 mg PO DAILY 02/28/25 02/28/25 History vitamin B complex 1 cap PO ONCE 02/28/25 02/28/25 History Exam Narrative Exam Narrative: Gen: Awake and alert, in no apparent distress HEENT: Non-icteric sclera Neck: Supple Lungs: No increased wob, speakes in full sentences decreased air movement, bilateral crackles. O2 NC noted CV: Appears well perfused, heart with regular rate and rhythm, no murmurs auscultated, strong pulses Abdomen: Non-distended MSK: Moves 4 extremities without apparent limitation in ROM. No peripheral edema noted Skin: Visualized skin without rashes, cyanosis. Neuro: Normal Gait, no obvious focal deficits or facial asymmetry. Speaks in full, clear sentences. Psych: Appropriate for situation. Results Labs 02/28/25 11:55 02/28/25 11:55 Labs: Laboratory Results - last 24 hr 02/28/25 02/28/25 02/28/25 11:50 11:55 12:30 WBC 6.01 RBC 4.59 Hgb 13.8 Hct 42.2 MCV 92 MCH 30.1 MCHC 32.7 RDW 14.5 H Plt Count 303 MPV 8.8 Immature Gran % 0.3 Neutrophils % 60.3 Lymphocytes % 21.5 Monocytes % 9.2 Eosinophils % 8.2 Basophils % 0.5 Nucleated RBC % 0.0 Absolute Neutrophils 3.63 Absolute Lymphocytes 1.29 Absolute Monocytes 0.55 Absolute Eosinophils 0.49 Absolute Basophils 0.03 VBG pH 7.31 7.34 VBG pCO2 73 H* 67 H* VBG pO2 29 43 VBG HCO3 37 H 36 H VBG Total CO2 34 H 33 H VBG O2 Saturation 43 73 VBG Base Excess 11 H 10 H Sodium 143 Potassium 4.4 Chloride 101 Carbon Dioxide 36.2 H Anion Gap 5.8 BUN 3 L Creatinine 0.7 Est GFR (CKD-EPI 2020) 115.80 Glucose 85 Calcium 9.6 Magnesium 1.9 Total Bilirubin 0.4 AST 18 ALT 15 L Alkaline Phosphatase 94 Troponin I < 4 Total Protein 7.9 Albumin 3.1 L COVID-19 Source Nasopharynx SARS-CoV-2 (PCR) Negative Influenza Type A (PCR) Negative Influenza Type B (PCR) Negative RSV (PCR) Negative 02/28/25 02/28/25 12:32 14:32 WBC RBC Hgb Hct MCV MCH MCHC RDW Plt Count MPV Immature Gran % Neutrophils % Lymphocytes % Monocytes % Eosinophils % Basophils % Nucleated RBC % Absolute Neutrophils Absolute Lymphocytes Absolute Monocytes Absolute Eosinophils Absolute Basophils VBG pH VBG pCO2 VBG pO2 VBG HCO3 VBG Total CO2 VBG O2 Saturation VBG Base Excess Sodium Potassium Chloride Carbon Dioxide Anion Gap BUN Creatinine Est GFR (CKD-EPI 2020) Glucose Calcium Magnesium Total Bilirubin AST ALT Alkaline Phosphatase Troponin I Cancelled Cancelled Total Protein Albumin COVID-19 Source SARS-CoV-2 (PCR) Influenza Type A (PCR) Influenza Type B (PCR) RSV (PCR) Last Vital Signs Temp 36.5 C 02/28/25 15:24 Pulse 60 02/28/25 15:24 Resp 20 02/28/25 15:24 BP 123/65 02/28/25 15:24 Pulse Ox 98 02/28/25 15:24 PAWSS Have you Been Recently Intoxicated or Drunk Within the Last 30 days?: No Have you Ever Experienced Previous Episodes of Alcohol Withdrawal?: Yes Have you ever Experienced Withdrawal Seizures?: No Have you ever Experienced Delirium Tremens(DT)s?: No Have you ever undergone Alcohol Rehabilitation Treatment (i.e, inpt ot outpatient treatment programs)?: Yes Have you ever Experienced Blackouts?: No Have you ever Combined Alcohol with other Downers within the last 90 days?: No Have you ever Combined Alcohol with any other Substance of Abuse during the last 90 days?: No Positive Blood Alcohol level on Presentation? [PCS.BAL]: No Evidence of Increased Autonomic Activity (i.e. HR>120, tremor, sweating, agitation, nausea)?: No Result: 2 Time Spent Time spent with Patient: 40-54 minutes Time was spent: preparing to see the patient(eg.review tests), obtaining and/or reviewing separately otained hiistory, ordering medications,tests, procedures, referring, communicating with other health director of primary care, indepentently interpreting results, counseling the patient and care coordination
--- NOTE | 2025-02-28 17:27 | RESPIRATORY ---
Pt advised he wears 4L O2 at rest and 8L O2 with ambulation. DME: [facility]. Pt said he could have his Aunt bring a tank when he is ready to be discharged.
[2025-02-28] MEDS: Enoxaparin 40 MG/0.4 ML SYR SC (17:36)
[2025-02-28] MEDS: hydrOXYzine HCL 10 MG TAB PO (17:52)
[2025-02-28] MEDS: Gabapentin 600 MG TAB PO (20:25)
[2025-02-28] MEDS: Normal Saline Flush 10 ML SYR IVP ×2 (20:25→22:35)
[2025-02-28] MEDS: guaiFENesin 600 MG TABCR 1200 MG PO (20:25)
[2025-02-28] MEDS: Normal Saline 500 ML IV (22:35)
[2025-02-28] MEDS: CEFEPIME 2 GM in Normal Saline 100 ML IVPB (22:35)
[2025-02-28 22:55] LABS: MRSA PCR Negative (Negative)
[2025-02-28 23:09] LABS: *AMPHETAMINES SCREEN URINE Negative (Negative); *BARBITURATES SCREEN URINE Negative (Negative); *BENZODIAZEPINES SCREEN URINE Negative (Negative); Cannabinoids THC Positive (Negative); Cocaine Screen,Urine Negative (Negative); METHADONE URINE SCREEN Positive (Negative); OPIATES URINE SCREEN Negative (Negative); Tricyclic Antidepressants Negative (Negative)
[2025-03-01] VITALS (10 sets, daily range): BP systolic 106–122; BP diastolic 60–84; PULSE 51–71; RESP 2–20; TEMP 36.3–36.7; O2SAT 86–98
[2025-03-01] MEDS: Albuterol 2.5 MG/3 ML INH SOLN VIAL UPD (03:20)
[2025-03-01] MEDS: CEFEPIME 2 GM in Normal Saline 100 ML IVPB ×3 (06:35→21:50)
[2025-03-01] MEDS: Normal Saline Flush 10 ML SYR IVP ×4 (06:35→21:50)
[2025-03-01 07:01] LABS: Abs Immature Grans 0.03 10^3/uL (0.0-0.06); Absolute Eosinophil Count 0.02 10^3/uL (0.0-0.7); Absolute Lymphocyte Count 1.78 10^3/uL (1.2-3.4); Absolute Monocyte Count 0.46 10^3/uL (0.1-0.8); Absolute Neutrophil Count 5.13 10^3/uL (1.2-6.7); Eosinophils % 0.3 %; HCT 41.9 % (40.0-50.0); HGB 13.8 g/dL (13.5-17.5); Immature Grans % 0.4 %; MCH 29.7 pg (27.0-33.0); MCHC 32.9 % (32.0-36.0); MCV 90 fL (80-95); Monocytes % 6.2 %; Neutrophils % 69.1 %; RBC 4.65 10^6/uL (4.36-5.78); RDW 14.5 % (11.8-14.1); RDW-SD 47.5 fL; WBC 7.42 10^3/uL (4.4-10.8)
[2025-03-01 07:37] LABS: Diff Comment Diff Reviewed; RBC Morphology Normal
[2025-03-01] MEDS: buPROPion-XL 150 MG TABCR PO (08:43)
[2025-03-01] MEDS: guaiFENesin 600 MG TABCR 1200 MG PO ×2 (08:43→20:10)
[2025-03-01] MEDS: Folic Acid 1 MG TAB PO (08:44)
[2025-03-01] MEDS: FLUoxetine 20 MG CAP 40 MG PO (08:44)
[2025-03-01] MEDS: ARIPiprazole 5 MG TAB PO (08:44)
[2025-03-01] MEDS: Vitamins B Comp w/C TAB 1 TAB PO (08:44)
[2025-03-01] MEDS: Losartan 50 MG TAB PO (08:44)
[2025-03-01] MEDS: Gabapentin 600 MG TAB PO ×3 (08:44→20:10)
[2025-03-01] MEDS: predniSONE 20 MG TAB 40 MG PO (08:44)
[2025-03-01] MEDS: Methadone Liquid 10 MG/ML 130 MG PO (08:55)
--- NOTE | 2025-03-01 09:00 | RT.EKG_ITS ---
APPROVED REPORT Exam: Resting ECG Reason for Exam: QTc Patient Location: I HR:50 bpm ECG Measurements Heart Rate 50 AXIS WI 168 P 19 QRSd 125 QRS -5 QT 502 T 12 QTc 458 Conclusion Sinus rhythm...normal P axis, V-rate 50- 99 Left ventricular hypertrophy...multiple voltage criteria ST elev, probable normal early repol pattern...ST elevation, age<55 Artifact in lead(s) I,II,III,aVR,aVL,aVF,V1,V2,V3,V4,V5,V6 and baseline wander in lead(s) III
--- NOTE | 2025-03-01 10:04 | INITIAL_ITS ---
Date of service: 03/01/25 Time of Service: 10:04 Care Management Initial Assmt Initial Assessment Reason for Hospitalization: Pneumonia Functional Status/Living Situation Patient Presentation: William was lying in bed when CM met with him. He was polite and agreeable to conversation. William stated that he is feeling very weak. He noted that until a couple of days ago he was pretty independent but is now requiring assistance due to his breathing and weakness. He is on nasal oxygen at 4-8 L/min at baseline at home. William and his 16 year old son Stef live with William's aunt and uncle and they have temporary guardianship of him. William and Stef are very close as Stef's mother has never really been a part of his life. 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 He has agreed to have referrals sent to [facility] and [facility] for short term rehab in case it is needed/recommended. He also reported that he has a community field case manager who is helping him with a LTM application as well as with applying for disability. Town of Residence: [place] Resides with: Other (lives with aunt and uncle and his son) Significant Other/Family: Local Employment Status: Unemployed Instrumental Activities of Daily Living (ADLs): Independent Medications Medication Management: No Issues/Barriers identified Advance Directives Advance Directives: Do you have an Advance Directive: N 12/07/15 14:45 AD On File at [facility]: N 02/01/13 20:37 Date Asked 02/28/25 03/01/25 08:58 AD Date Reviewed COLST On File at [facility] COLST Date Scanned Code Status Resuscitation Status Full Code Portal Pt does not currently have a portal and education provided: Yes Insurance Coverage/Financial Issues Insurance: Medicaid Care Team Visit Care Team Role Provider Type Renny Rollins Primary Care Provider NON-[facility] STAFF PHYSICIAN Pat Valdovinos MD Emergency Provider [facility] STAFF PHYSICIAN Earl Zelaya MD Admit Provider [facility] STAFF PHYSICIAN Attending Provider Discharge Potential Discharge Needs: PCP F/U Appt Patient/Family Education Needs: Review discharge instructions, discuss Ask Me Three Transportation: RCT Plan: Anticipate William will be discharged home with a resumption of home health services for RN, PT, OT and COST REDUCTION ENGINEER. He may benefit from a short stay in a SNF for short term rehab prior to going home and referrals were sent to [facility]. He will follow up with his community providers and plan of care and transport with family vs RCT. CM will follow and continue to assess for discharge needs. Social Determinants of Health Screening Social Determinants of health last assessed in clinic: 03/01/25 Will the Patient Participate in the Screening?: Yes Do you worry about having a steady place to live?: yes What is your living situation today?: I have housing today, but am worried about losing it Problems where you live: no known problems In the past 12 months, have you had to go without electric, gas, oil or water in your home?: yes 1. Within the past 12 months, we worried whether our food would run out before we got money to buy more.: Never true 2. Within the past 12 months, the food we bought just didn't last and we didn't have money to get more.: Never true Has lack of transportation kept you from medical appointments or from doing things needed for daily living?: yes Has anyone in your life made you feel unsafe or unsupported?: no How hard is it for you to pay for the very basics like food, housing, medical care, and heating? Would you say it is:: Somewhat hard Do you want help finding or keeping work or a job?: I do not need or want help If for any reason you need help with day-to-day activities such as bathing, preparing meals, shopping, managing finances, etc., do you get the help you need?: I need a lot more help How often do you feel lonely or isolated from those around you?: Rarely Do you speak a language other than [place] Islander at home?: No Health Related Social Needs Health related social needs: housing instability, housed, with risk of homelessness (Z59.811), transportation insecurity (Z59.82), material hardship(utilities) (Z59.12), problems related to housing/economic circumstances (Z59.89), problems with daily activities (Z73.9) and feeling lonely/isolated (Z60.8) Health related social needs details: pt lives with aunt and uncle but not for long- feels like a burden and not able to live on own PFSH All Active Problems (Updated 02/28/25 @ 14:37 by Pat Valdovinos MD) Acute respiratory failure with hypoxia and hypercarbia (Acute) DVT prophylaxis (Acute) Alcohol withdrawal (Acute) Acute hypoxic respiratory failure (Acute) Multifocal pneumonia (Acute) Abdominal cramping (Acute) Ileus (Acute) Acute hypokalemia (Acute) HTN (hypertension) (Chronic) Suicide ideation (Acute) Polysubstance abuse (Chronic) Opioid use disorder (Acute) Nicotine dependence (Chronic) Opioid dependence on agonist therapy (Chronic) Alcohol dependence (Chronic) Medical History Pancreatitis DVT (deep venous thrombosis) History of osteomyelitis Hepatitis B Hepatitis C Depression Alcohol withdrawal Polysubstance abuse Family History Other Alcohol use disorder Depression Social History Smoking/Tobacco Use Status: Current every day Tobacco Type: cigarettes Smoking risk assessment performed?: Yes Alcohol Intake: current Alcohol Intake frequency: 3 or more drinks per day Alcohol type: hard liquor Drug use: Daily Substance use type: marijuana Details: Pt states he last used marijuana 10/23/24 Last used ETOH about 10/16/24 Housing: house Do you feel safe at home: Yes Do you feel safe in your relationship?: Yes
[2025-03-01] MEDS: Albuterol/Ipratropium 3 ML UPD VIAL UPD ×2 (11:01→17:32)
[2025-03-01] MEDS: AZITHROMYCIN 500 MG in Normal Saline 250 ML 250 MG IVPB (14:00)
[2025-03-01] MEDS: hydrOXYzine HCL 10 MG TAB PO ×2 (14:05→22:47)
[2025-03-01 14:38] LABS: Anion Gap 3.9 mmol/L (3-11); BUN 6 mg/dL (7-18); CO2 33.1 mmol/L (21.0-32.0); CREATININE 0.8 mg/dL (0.70-1.30); Calcium 9.3 mg/dL (8.5-10.1); Chloride 100 mmol/L (98-107); Estimated GFR 111.22 (mL/min/1.73m2); Glucose 127 mg/dL (74-106); Magnesium 1.9 mg/dL (1.8-2.4); Potassium 4.6 mmol/L (3.5-5.1); Sodium 137 mmol/L (136-145)
--- NOTE | 2025-03-01 15:46 | IN_ITS ---
PT Notes Visit Reasons: Acute hypoxic hypercarbic respiratory failure Physical Therapy Inpatient Initial Evaluation Date: 03/01/2025 Referring Doctor: Greta Christianson NP PT Orders: PT CONSULT: Safety Consult for D/C Precautions: Fall. Standard. Activity as tolerated. Patient Profile/Admitting Diagnosis: William is a 44-year-old male patient on chronic oxygen supplementation and on opioid dependence who was recently admitted to this hospital for hypoxic respiratory failure requiring intubation due to multifocal pneumonia, with suspected reactive airway disease versus pulmonary fibrosis. He came back on 02/28/2025 to the ED for worsening shortness of breath, dyspnea on exertion, and generalized weakness. Patient is also being managed for polysubstance use disorder and hypertension. PMHX: All Active Problems (Updated 02/28/25 @ 14:37 by Pat Valdovinos MD) Acute respiratory failure with hypoxia and hypercarbia (Acute) DVT prophylaxis (Acute) Alcohol withdrawal (Acute) Acute hypoxic respiratory failure (Acute) Multifocal pneumonia (Acute) Abdominal cramping (Acute) Ileus (Acute) Acute hypokalemia (Acute) HTN (hypertension) (Chronic) Suicide ideation (Acute) Polysubstance abuse (Chronic) Opioid use disorder (Acute) Nicotine dependence (Chronic) Opioid dependence on agonist therapy (Chronic) Alcohol dependence (Chronic) Medical History Pancreatitis DVT (deep venous thrombosis) History of osteomyelitis Hepatitis B Hepatitis C Depression Alcohol withdrawal Polysubstance abuse Social History/Home Situation: Patient currently lives with his aunt and his uncle and is hoping he could find a place to stay in. Was able to walk small distances at home to the bathroom and to the kitchen but with decreased speed due to shortness of breath. has a ramp to enter into aunt's and uncle's house. Equipment Owned/DME: Oxygen supplementation via [facility] ehe went home from last tertiary care hospital admission. Subjective: Feels weak and fatigued. Anxious about not being able to live with his aunt and uncle at their house permanently. Added that he recently broke up with his girlfriend and feels bad about it. Agreeable to using the walker for support to walk with this PT for the evaluation. No wheezing, nor coughing nor chest tightness reported throughout mobility assessment. Objective: General Observation: On 4 L of O2 via NC. IV through R UE. Nurse Lori called in during mobility assessment for safety. Mental Status: Alert and oriented as to person, place, time, and purpose. Able to pay attention, focus, and respond appropriately. Pain: None reported Vital Signs: Oxygen lowest at 88% on 4 L throughout the mobility assessment ROM: Right Upper Extremity: Shoulder Flexion WFL. Shoulder abduction WFL. Elbow flexion WFL. Wrist flexion WFL. Functional opening and closing of hand WFL. Left Upper Extremity: Shoulder Flexion WFL. Shoulder abduction WFL. Elbow flexion WFL. Wrist flexion WFL. Functional opening and closing of hand WFL. Right Lower Extremity: Hip flexion WFL. Hip abduction WFL. Knee flexion WFL. Ankle dorsiflexion WFL. Ankle plantarflexion WFL. Left Lower Extremity: Hip flexion WFL. Hip abduction WFL. Knee flexion WFL. Ankle dorsiflexion WFL. Ankle plantarflexion WFL. Strength: Right Upper Extremity: Shoulder flexors 4/5. Shoulder abductors 4/5. Elbow flexors 4/5. Elbow extensors 4/5. Medical Social Consultant strong. Left Upper Extremity: Shoulder flexors 4/5. Shoulder abductors 4/5. Elbow flexors 4/5. Elbow extensors 4/5. Medical Social Consultant strong. Right Lower Extremity: Hip flexors 4/5. Hip abductors 4/5. Knee flexors 5/5. Knee extensors 4/5. Ankle dorsiflexors 4/5. Ankle plantarflexors 5/5. Left Lower Extremity: Hip flexors 4/5. Hip abductors 4/5. Knee flexors 5/5. Knee extensors 4/5. Ankle dorsiflexors 4/5. Ankle plantarflexors 5/5. Bed Mobility/Transfers: Rolling independent Supine to sit independent Sit to supine independent Sit to stand supervision Stand to sit supervision Bed to reclining chair stand by assist with FWW Reclining chair to bed stand by assist with FWW Gait: Was able to tolerate 20 feet of in-room ambulation before he complained of fatigue. Minimal shortness of breath. Stand by assist only. Requested to sit down due to subjective complaint of fatigue after walking about 12 steps. Ayesha slowed. Oxygen saturation lowest at 88% on 4 L that quickly bounced back up to 91% in less than a minute with pursed lip breathing. Balance: Static Sitting: Normal Dynamic Sitting: Normal Static Standing: Good Dynamic Standing: Fair Special Tests: Mobility Limitations Standardized Measure [employer] AM-PAC 6 clicks Basic Mobility Inpatient Short Form: Raw Score: 24 CMS Score: 0% deficit Informed Consent/Education: Patient was instructed in purpose of PT consult and plan of care. Agreeable to proceed with established PT POC to achieve personal goals. Assessment: Impaired activity tolerance due to complaint of fatigue with minimal movement associated with multi focal pneumonia along with suspected pulmonary fibrosis vs reactive airway disease. Patient is able to manage short distance ambulation with stand by assist using a front-wheeled walker with no report of chest tightness and coughing, oxygen supplementation stayed at 88%-94% on 4 L throughout mobility assessment. Minimally short of breath and subjective complaint of fatigue after a few steps needing seated rest. Patient presents with clinical signs and symptoms consistent with current/admitting diagnoses that have resulted to mobility limitations, gait instability, generalized weakness, and overall ADL decline as demonstrated by the following impairment level findings: 1. Minimal strength decrease to B UE/LE major muscle groups 2. Impaired activity tolerance 3. Shortness of breath Impairments are contributing to the following functional limitations: 1. Increased completion time for mobility ADL performance 2. Need for assistive device Patient is assessed as a 45945 moderate complexity based on the following: History: [id number] [] with past medical history as indicated above Examination: Demonstrable impairment in strength, balance, and mobility level with underlying impairments and functional limitations as exhibited above Presentation: Evolving Decision Makin moderate complexity Goals: Goals X1 week 1. Stand-Sit independent without AD 2. Bed-Chair independent without AD 3. Chair-Bed independent without AD 4. Independent gait on level surface without AD without report of pain nor dyspnea 5. Independent gait on level surface without AD without report of pain nor dyspn ea 6. Independent with home exercise program 7. Normal static and dynamic standing balance/tolerance Plan of Care/Treatment Plan: 1x/day, 7 days/week x 1 week. Plan of care has been reviewed with the CARPENTER FORM providing the service under Physical Therapy direction. Initiate Physical Therapy intervention for pain management as needed, strengthening, bed mobility, transfers, gait, stairs, balance traini ng, and use of assistive device. DISCHARGE RECOMMENDATIONS: [] Home with no services [] [] Home with services [specify] [] Home with outpatient PT [] [] SNF for continued rehabilitation [] [] Nursing Home Care [] [] SNF versus LTC based on ability to participate and progress [] [X] PT with pulmonary rehab vs. short-term SNF with pulmonary rehab to address activity tolerance limitations from respiratory pathology TREATMENT CODE/TIME: 36321 x 20 minutes for 1 unit, 09447 x 29 minutes for 2 units (14:40-15:29). Thank you for the opportunity to participate in the care of this patient. Humaira Pitts PT, DPT, CLT [facility] [place], [place]
[2025-03-01] MEDS: Enoxaparin 40 MG/0.4 ML SYR SC (16:45)
--- NOTE | 2025-03-01 18:18 | W.PM.PROGNOT ---
Date of Service Date of service: 03/01/25 Time of Service: 18:18 Assessment and Plan Assessment and plan (1) Multifocal pneumonia: Status: Acute Assessment and plan: -As seen on chest x-ray and now CT -Patient does now meet sepsis criteria with fever, elevated WBC, elevated RR, and pneumonia -MRSA swab negative Continue azithromycin and cefepime Nebs Prednisone Acapella IS (2) Acute hypoxic respiratory failure: Status: Acute Assessment and plan: - Presumed secondary to multifocal pneumonia as noted above COPD (3) Opioid dependence on agonist therapy: Status: Chronic Assessment and plan: - Will continue home methadone. (4) Depression: Assessment and plan: Continue home meds (5) Nicotine dependence: Status: Chronic Assessment and plan: NRT prn (6) DVT prophylaxis: Status: Acute Assessment and plan: enoxaparin (7) Weak: Status: Acute Assessment and plan: Unable to walk without stopping every couple of feet to rest, secondary to feeling weak he reports, also gets short of breath, but weakness has become significant. PT eval Subjective Subjective Patient reports: no new complaints, feels better, tolerating liquids well, tolerating a regular diet, voiding w/o difficulty, bowel movement, shortness of breath and afebrile; denies nausea or vomiting Interval history since last seen: Patient complains of feeling very weak and unable to walk any distance, requires multiple stops to rest, not only for becoming short of breath, but also feels very weak in general. Exam Narrative Exam Narrative: Gen: Awake and alert, in no apparent distress HEENT: Non-icteric sclera Neck: Supple Lungs: No increased wob, speakes in full sentences decreased air movement, bilateral crackles. O2 NC noted CV: Appears well perfused, heart with regular rate and rhythm, no murmurs auscultated, strong pulses Abdomen: Non-distended MSK: Moves 4 extremities without apparent limitation in ROM. No peripheral edema noted Skin: Visualized skin without rashes, cyanosis. Neuro: Normal Gait, no obvious focal deficits or facial asymmetry. Speaks in full, clear sentences. Psych: Appropriate for situation. Objective Last Vital Signs Temp 36.5 C 03/01/25 14:37 Pulse 71 03/01/25 17:43 Resp 18 03/01/25 17:32 BP 106/60 03/01/25 14:37 Pulse Ox 96 03/01/25 17:32 Laboratory Results - last 24 hr 02/28/25 02/28/25 03/01/25 20:55 21:59 06:38 WBC 7.42 RBC 4.65 Hgb 13.8 Hct 41.9 MCV 90 MCH 29.7 MCHC 32.9 RDW 14.5 H Plt Count MPV Immature Gran % 0.4 Neutrophils % 69.1 Lymphocytes % 24.0 Monocytes % 6.2 Eosinophils % 0.3 Basophils % 0.0 Nucleated RBC % 0.0 Absolute Neutrophils 5.13 Absolute Lymphocytes 1.78 Absolute Monocytes 0.46 Absolute Eosinophils 0.02 Absolute Basophils 0.00 RBC Morphology Normal Sodium Cancelled Potassium Cancelled Chloride Cancelled Carbon Dioxide Cancelled Anion Gap Cancelled BUN Cancelled Creatinine Cancelled Est GFR (CKD-EPI 2020) Cancelled Glucose Cancelled Calcium Cancelled Magnesium Cancelled Urine Opiates Screen Negative Urine Methadone Screen Positive A Ur Barbiturates Screen Negative Ur Tricyclics Screen Negative Ur Amphetamines Screen Negative U Benzodiazepines Scrn Negative Urine Cocaine Screen Negative Ur THC Screen Positive A MRSA (TEM-PCR) Negative 03/01/25 14:15 WBC RBC Hgb Hct MCV MCH MCHC RDW Plt Count MPV Immature Gran % Neutrophils % Lymphocytes % Monocytes % Eosinophils % Basophils % Nucleated RBC % Absolute Neutrophils Absolute Lymphocytes Absolute Monocytes Absolute Eosinophils Absolute Basophils RBC Morphology Sodium 137 Potassium 4.6 Chloride 100 Carbon Dioxide 33.1 H Anion Gap 3.9 BUN 6 L Creatinine 0.8 Est GFR (CKD-EPI 2020) 111.22 Glucose 127 H Calcium 9.3 Magnesium 1.9 Urine Opiates Screen Urine Methadone Screen Ur Barbiturates Screen Ur Tricyclics Screen Ur Amphetamines Screen U Benzodiazepines Scrn Urine Cocaine Screen Ur THC Screen MRSA (TEM-PCR) PAWSS Have you Been Recently Intoxicated or Drunk Within the Last 30 days?: No Have you Ever Experienced Previous Episodes of Alcohol Withdrawal?: Yes Have you ever Experienced Withdrawal Seizures?: No Have you ever Experienced Delirium Tremens(DT)s?: No Have you ever undergone Alcohol Rehabilitation Treatment (i.e, inpt ot outpatient treatment programs)?: Yes Have you ever Experienced Blackouts?: No Have you ever Combined Alcohol with other Downers within the last 90 days?: No Have you ever Combined Alcohol with any other Substance of Abuse during the last 90 days?: No Positive Blood Alcohol level on Presentation? [PCS.BAL]: No Evidence of Increased Autonomic Activity (i.e. HR>120, tremor, sweating, agitation, nausea)?: No Result: 2 Time Spent with Patient Time Spent with Patient: 25-34 minutes Time was spent: preparing to see the patient(eg.review tests), ordering medications,tests, procedures, referring, communicating with other health career and guidance counselor, indepentently interpreting results, counseling the patient and care coordination
[2025-03-01] MEDS: Normal Saline 500 ML IV (21:49)
[2025-03-02] VITALS (11 sets, daily range): BP systolic 110–129; BP diastolic 64–82; PULSE 51–66; RESP 2–24; TEMP 36.6–36.9; O2SAT 91–98
[2025-03-02] MEDS: Albuterol/Ipratropium 3 ML UPD VIAL UPD ×3 (05:53→18:36)
[2025-03-02] MEDS: CEFEPIME 2 GM in Normal Saline 100 ML IVPB ×3 (06:00→22:06)
[2025-03-02] MEDS: Normal Saline Flush 10 ML SYR IVP ×4 (06:01→22:08)
[2025-03-02 07:34] LABS: Abs Immature Grans 0.02 10^3/uL (0.0-0.06); Absolute Basophil Count 0.03 10^3/uL (0.0-0.2); Absolute Eosinophil Count 0.12 10^3/uL (0.0-0.7); Absolute Lymphocyte Count 3.45 10^3/uL (1.2-3.4); Absolute Monocyte Count 0.74 10^3/uL (0.1-0.8); Absolute Neutrophil Count 3.98 10^3/uL (1.2-6.7); Basophils % 0.4 %; Eosinophils % 1.4 %; HCT 37.6 % (40.0-50.0); HGB 12.1 g/dL (13.5-17.5); Immature Grans % 0.2 %; Lymphocytes % 41.4 %; MCH 29.2 pg (27.0-33.0); MCHC 32.2 % (32.0-36.0); MCV 91 fL (80-95); MPV 8.5 fL (8.0-11.0); Monocytes % 8.9 %; Neutrophils % 47.7 %; Platelet Count 278 10^3/uL (130-400); RBC 4.15 10^6/uL (4.36-5.78); RDW 14.8 % (11.8-14.1); RDW-SD 49.7 fL; WBC 8.34 10^3/uL (4.4-10.8)
[2025-03-02 08:00] LABS: Anion Gap 2.7 mmol/L (3-11); BUN 7 mg/dL (7-18); CO2 32.3 mmol/L (21.0-32.0); CREATININE 0.6 mg/dL (0.70-1.30); Calcium 9.2 mg/dL (8.5-10.1); Chloride 102 mmol/L (98-107); Estimated GFR 121.32 (mL/min/1.73m2); Glucose 95 mg/dL (74-106); Magnesium 1.9 mg/dL (1.8-2.4); Potassium 3.6 mmol/L (3.5-5.1); Sodium 137 mmol/L (136-145)
--- NOTE | 2025-03-02 08:26 | PDOC.CMPRO ---
Date of service: 03/02/25 Time of Service: 08:26 Care Management Progress Note Progress Note Text Progress Note Text: William was awake and lying in bed when CM met with him; he is accompanied by his mother who has multiple concerns surrounding William's ability to function in society and live on his own with chronic and debilitating health issues. William has been staying with his Aunt however the care he requires is exceeding what she can provide. CLINICAL DIETITIAN through [facility] is helping him apply for disability and LTM and she is planning to meet with him in person tomorrow at 1:15 tomorrow. William is agreeable to SNF for STR and referrals were sent this morning. Unfortunately, his blood cultures are positive therefor pt would be an canidate for SWB1 status if LT ABX are needed.CM will continue to follow and support discharge planning conciderations. Discharge Potential Discharge Needs: Consult Anticipated Barriers to Discharge: None Identified Patient/Family Education Needs: Review discharge instructions, discuss Ask Me Three Transportation: Private vehicle Plan: Anticipate William will be discharged home with a resumption of home health services for RN, PT, OT and CLINICAL DIETITIAN. He may benefit from a short stay in a SNF for short term rehab prior to going home and referrals were sent to [facility]. He will follow up with his community providers and plan of care and transport with family vs RCT. CM will follow and continue to assess for discharge needs. Social Determinants of Health Screening Social Determinants of health last assessed in clinic: 03/02/25 Will the Patient Participate in the Screening?: Yes Do you worry about having a steady place to live?: yes What is your living situation today?: I have housing today, but am worried about losing it Problems where you live: no known problems In the past 12 months, have you had to go without electric, gas, oil or water in your home?: yes 1. Within the past 12 months, we worried whether our food would run out before we got money to buy more.: Never true 2. Within the past 12 months, the food we bought just didn't last and we didn't have money to get more.: Never true Has lack of transportation kept you from medical appointments or from doing things needed for daily living?: yes Has anyone in your life made you feel unsafe or unsupported?: no How hard is it for you to pay for the very basics like food, housing, medical care, and heating? Would you say it is:: Somewhat hard Do you want help finding or keeping work or a job?: I do not need or want help If for any reason you need help with day-to-day activities such as bathing, preparing meals, shopping, managing finances, etc., do you get the help you need?: I need a lot more help How often do you feel lonely or isolated from those around you?: Rarely Do you speak a language other than Citizen [place] at home?: No Health Related Social Needs Health related social needs: housing instability, housed, with risk of homelessness (Z59.811), transportation insecurity (Z59.82), material hardship(utilities) (Z59.12), problems related to housing/economic circumstances (Z59.89), problems with daily activities (Z73.9) and feeling lonely/isolated (Z60.8) Health related social needs details: pt lives with aunt and uncle but not for long- feels like a burden and not able to live on own
[2025-03-02] MEDS: Methadone Liquid 10 MG/ML 130 MG PO (08:30)
[2025-03-02] MEDS: Folic Acid 1 MG TAB PO (08:31)
[2025-03-02] MEDS: Vitamins B Comp w/C TAB 1 TAB PO (08:31)
[2025-03-02] MEDS: buPROPion-XL 150 MG TABCR PO (08:31)
[2025-03-02] MEDS: ARIPiprazole 5 MG TAB PO (08:31)
[2025-03-02] MEDS: predniSONE 20 MG TAB 40 MG PO (08:31)
[2025-03-02] MEDS: FLUoxetine 20 MG CAP 40 MG PO (08:31)
[2025-03-02] MEDS: Gabapentin 600 MG TAB PO ×3 (08:31→19:55)
[2025-03-02] MEDS: guaiFENesin 600 MG TABCR 1200 MG PO ×2 (08:31→19:55)
[2025-03-02] MEDS: Losartan 50 MG TAB PO (08:31)
--- NOTE | 2025-03-02 10:53 | PT.INTREAT ---
PT Notes Visit Reasons: Acute hypoxic hypercarbic respiratory failure Physical Therapy Inpatient Treatment Note Date: 03/02/2025 Precautions: Fall. Standard. Activity as tolerated. Subjective: Agreeable to trying out walking farther today. Complained of fatigue and weakness with the walk, somewhat proud that he is able to move better. Per RT, patient is now 3 L of oxygen at rest. Objective: General Observation: On 3 L of O2 via NC. IV through R UE capped. Mental Status: Alert and oriented as to person, place, time, and purpose. Able to pay attention, focus, and respond appropriately. Pain: None reported Vital Signs: Oxygen lowest at 83% on 4 L throughout the mobility assessment with quick resaturation back up to 88% in 1-2 minutes of seated rest Bed Mobility/Transfers: Minimal cueing only for self-pacing and pursed lip breathing when he starts to feel tired and out of breath Rolling independent Supine to sit independent Sit to supine independent Sit to stand supervision Stand to sit supervision Bed to reclining chair stand by assist with FWW Reclining chair to bed stand by assist with FWW Gait: Was able to tolerate 50 feet of [facility] hallway ambulation before needing to sit down. He then was able to walk 30 feet + 30 feet after a seated rest. Minimal shortness of breath with desaturation down to 84% on 4 L with quick rebound to 88% in 1-2 minutes. Stand by assist only. Requested to sit down due to subjective complaint of fatigue after walking about 12 steps. Ayesha slowed. THERA EX: Deferred for the afternoon session Balance: Static Sitting: Normal Dynamic Sitting: Normal Static Standing: Good Dynamic Standing: Fair Assessment: Decreased to 3 L of oxygen at rest per RT. Improved activity tolerance with rest after a longer distance walked today. Continued to complain of fatigue with minimal movement associated with multi focal pneumonia along with suspected pulmonary fibrosis vs reactive airway disease. Patient is able to manage short distance ambulation with stand by assist using a front-wheeled walker with no report of chest tightness and coughing, desaturated to 84% on 4 L with resaturation back up to 88% within 1-2 minutes with pursed lip breathing. Plan of Care/Treatment Plan: 1x/day, 7 days/week x 1 week. Plan of care has been reviewed with the MANAGER CONSTRUCTION providing the service under Physical Therapy direction. Initiate Physical Therapy intervention for pain management as needed, strengthening, bed mobility, transfers, gait, stairs, balance training, and use of assistive device. DISCHARGE RECOMMENDATIONS: [] Home with no services [] [] Home with services [specify] [] Home with outpatient PT [] [] SNF for continued rehabilitation [] [] Labour Market Economist Care [] [] SNF versus LTC based on ability to participate and progress [] [X] PT with pulmonary rehab vs. short-term SNF with pulmonary rehab to address activity tolerance limitations from respiratory pathology TREATMENT CODE/TIME: 10970 x 39 minutes for 3 units (10:53-15:32).
[2025-03-02] MEDS: hydrOXYzine HCL 10 MG TAB PO (13:38)
[2025-03-02] MEDS: AZITHROMYCIN 500 MG in Normal Saline 250 ML 250 MG IVPB (14:29)
--- NOTE | 2025-03-02 14:43 | W.PM.PROGNOT ---
Date of Service Date of service: 03/02/25 Time of Service: 14:44 Assessment and Plan Assessment and plan (1) Multifocal pneumonia: Status: Acute Assessment and plan: per CXR and CT -Patient does now meet sepsis criteria with fever, elevated WBC, elevated RR, and pneumonia -MRSA swab negative Continue azithromycin and cefepime Gm + cocci BC - repeat BC drawn today Nebs Prednisone Acapella IS (2) Acute hypoxic respiratory failure: Status: Acute Assessment and plan: - Presumed secondary to multifocal pneumonia as noted above COPD At baseline currently (3) Bacteremia: Status: Acute Assessment and plan: Gm + cocci - continue cefepime - sensitivity pending BC repeated today (4) Anxiety: Status: Chronic Assessment and plan: Lorazepam prn (5) Opioid dependence on agonist therapy: Status: Chronic Assessment and plan: - Will continue home methadone. (6) Depression: Assessment and plan: Continue home meds (7) Nicotine dependence: Status: Chronic Assessment and plan: NRT prn (8) DVT prophylaxis: Status: Acute Assessment and plan: enoxaparin (9) Weak: Status: Acute Assessment and plan: Unable to walk without stopping every couple of feet to rest, secondary to feeling weak he reports, also gets short of breath, but weakness has become significant. PT recommends Home Health PT v rehab - patient willing to go to rehab. Subjective Subjective Patient reports: no new complaints, pain is less, tolerating liquids well, tolerating a regular diet, bowel movement, shortness of breath and afebrile; denies diarrhea or vomiting Interval history since last seen: Patient states today he is breathing better but is feeling sick. He states today he feels run down, exhausted and not at all well. Objective Last Vital Signs Temp 36.6 C 03/02/25 07:45 Pulse 61 03/02/25 11:13 Resp 18 03/02/25 11:13 BP 111/69 03/02/25 07:45 Pulse Ox 95 03/02/25 11:13 Laboratory Results - last 24 hr 03/02/25 03/02/25 07:05 07:25 WBC 8.34 RBC 4.15 L Hgb 12.1 L Hct 37.6 L MCV 91 MCH 29.2 MCHC 32.2 RDW 14.8 H Plt Count 278 MPV 8.5 Immature Gran % 0.2 Neutrophils % 47.7 Lymphocytes % 41.4 Monocytes % 8.9 Eosinophils % 1.4 Basophils % 0.4 Nucleated RBC % 0.0 Absolute Neutrophils 3.98 Absolute Lymphocytes 3.45 H Absolute Monocytes 0.74 Absolute Eosinophils 0.12 Absolute Basophils 0.03 Sodium 137 Potassium 3.6 D Chloride 102 Carbon Dioxide 32.3 H Anion Gap 2.7 L BUN 7 Creatinine 0.6 L Est GFR (CKD-EPI 2020) 121.32 Glucose 95 Calcium 9.2 Magnesium 1.9 PAWSS Have you Been Recently Intoxicated or Drunk Within the Last 30 days?: No Have you Ever Experienced Previous Episodes of Alcohol Withdrawal?: Yes Have you ever Experienced Withdrawal Seizures?: No Have you ever Experienced Delirium Tremens(DT)s?: No Have you ever undergone Alcohol Rehabilitation Treatment (i.e, inpt ot outpatient treatment programs)?: Yes Have you ever Experienced Blackouts?: No Have you ever Combined Alcohol with other Downers within the last 90 days?: No Have you ever Combined Alcohol with any other Substance of Abuse during the last 90 days?: No Positive Blood Alcohol level on Presentation? [PCS.BAL]: No Evidence of Increased Autonomic Activity (i.e. HR>120, tremor, sweating, agitation, nausea)?: No Result: 2 Time Spent with Patient Time Spent with Patient: 25-34 minutes Time was spent: preparing to see the patient(eg.review tests), ordering medications,tests, procedures, referring, communicating with other health career based intervention coordinator, indepentently interpreting results, counseling the patient and care coordination
[2025-03-02] MEDS: Enoxaparin 40 MG/0.4 ML SYR SC (15:21)
[2025-03-02] MEDS: LORazepam 20 MG/10 ML VIAL IVP (17:18)
[2025-03-02 17:43] LABS: MRSA PCR Negative (Negative)
[2025-03-02] MEDS: LORazepam 1 MG TAB PO (22:07)
[2025-03-02] MEDS: Acetaminophen 325 MG TAB PO (22:08)
[2025-03-03] VITALS (10 sets, daily range): BP systolic 113–133; BP diastolic 66–85; PULSE 68–84; RESP 2–24; TEMP 35.7–37; O2SAT 91–95
--- NOTE | 2025-03-03 | DI.US_ITS ---
APPROVED REPORT EXAM: Comprehensive 2D, Doppler, and color-flow Echocardiogram Patient Location: In-Patient Room/Bed: 231 Insurance Counsel: Lily Hylton RDCS (AE) Indications: Bacteremia Other Information Study Quality: Fair. Technically limited study due to body habitus. Conclusion Normal left ventricular wall thickness and chamber size. Ejection fraction is 55%. Wall motion is n ormal Normal right ventricular size and function Both atria are normal in size There is no structural or hemodynamically significant valvular disease Ascending aorta measures 3.9 cm Wall motion Left Ventricle The left ventricle is normal size. The left ventricular systolic function is normal. The left ventric ular ejection fraction is within the normal range. There is normal left ventricular wall thickness. T here is normal LV segmental wall motion. Technically limited subcostal imaging. LVEF is 55%. Right Ventricle The right ventricle is normal size. The right ventricular systolic function is normal. Atria The left atrium size is normal. Right atrium is not well visualized. Technically limited subcostal im aging. Aortic Valve The aortic valve is normal in structure. Aortic valve is trileaflet. There is no aortic valvular sten osis. No aortic regurgitation is present. There is no aortic valvular vegetation. Mitral Valve The mitral valve is normal in structure. No evidence of mitral valve stenosis. Trace mitral regurgita tion. There is no evidence of mitral valve vegetations. Tricuspid Valve The tricuspid valve is normal in structure. There is no tricuspid valve stenosis. Trace tricuspid reg urgitation. Pulmonic Valve The pulmonary valve is normal in structure. There is no pulmonic valvular stenosis. Trace pulmonic re gurgitation. There is no pulmonic valve vegetations. Great Vessels The aortic root is normal in size. The ascending aorta is mildly dilated. Aortic arch is not well vis ualized. The IVC was not visualized. Pericardium Subcostal imaging was technically limited by patient body habitus. 2D Dimensions IVSD d PLAX 0.81 cm M: 0.6-1.2 Ao Root d 3.50 cm M: 3.1 - 3.7 LVPW d PLAX 0.94 cm M: 0.6 - 1.2 Ao Asc Diam d 3.90 cm M: 2.6 - 3.4 LVID d PLAX 4.89 cm M: 4.2 - 5.8 LVDs 3.60 cm M: 2.5 - 4.0 LV EF Teichholz 51.2 % FS 26.21 % LV EDV (Teich) 112.0 mL LV ESV (Teich) 54.6 mL M-Mode TAPSE 2.55 cm (M/F) >1.7 Auto EF LV EDV A4C 172.6 mL LV EDV A2C 169.1 mL LV EDV BP 173.5 mL LV ESV A4C 77.7 mL LV ESV A2C 79.1 mL LV ESV BP 78.5 mL LVEF(%) A4C 55.0 % LVEF(%) A2C 53.2 % LVEF(%) BP 54.8 % LV SV A4C 94.9 ml LV SV A2C 89.9 ml LV SV BP 95.1 ml LV CO A4C 6.8 L/min LV CO A2C 6.1 L/min LV CO BP 6.4 L/min HR A4C 71.29 BPM HR A2C 67.67 BPM LV EDV Index (BP) LA Volume LA Length A4C 5.6 cm LA Length A2C 5.6 cm LA Area A4C s 21.57 cm2 LA Area A2C s 19.27 cm2 LA Vol A4C A-L 71.03 mL LA Vol A2C A-L 56.44 mL LA Vol Biplane A-L 63.4 mL LA Vol/BSA A4C A-L LA Vol/BSA A2C A-L LA Vol/BSA BP A-L 31.2 mL/m2 LA Vol A4C MOD 70.1 mL LA Vol A2C MOD 55.1 mL LA Vol BP MOD 62.2 mL LV Diastology MV E' medial 0.082 (>0.07 m/s) MV E Vmax 0.68 (0.4-1.3 m/s) MV E/E' MED 8.23 (<14) MV A Vmax 0.60 (0.4-1.3 m/s) MV E' lateral 0.103 (>0.1 m/s) E/A Ratio 1.1 MV E/E' LAT 6.59 (<14) MV E' Average 0.093 m/s MV E/E'(average) 7.32 Aortic Valve AoV Vmax 1.56 m/s LVOT Vmax 1.23 m/s AoV Peak Grad 9.7 mmHg LVOT Peak Grad 6.1 mmHg AoV Area (Vmax) 2.28 cm2 LVOT VTI 0.227 m AoV VTI 0.317 m LVOT Mean Grad 3.3 mmHg AoV Mean Segun. 1.12 m/s LVOT SV 65.69 mL AoV Mean Grad 5.6 mmHg LVOT Diam s 1.90 cm AoV Area (VTI) 2.07 cm2 AV Regurg Peak Gr. 9.75 mmHg Velocity Ratio 0.79 Mitral Valve MV DT 302 (160-240 msec) MV Vmax TIPS 0.60 m/s MV Mean Grad 0.6 (<2mmHg) MV VTI 0.192 m Pulmonary Valve PV Vmax 1.12 (0.5-1.5 m/s) RVOT Vmax 0.76 m/s PV Peak Grad 5.0 mmHg RVOT Peak Gr. 2.3 mmHg PV Mean Segun 0.79 m/s RVOT VTI 0.149 m PV Mean Grad 2.9 mmHg RVOT Mean Gr. 1.3 mmHg Tricuspid Valve TR Vmax 2.65 m/s TR Peak Grad 28.0 mmHg
[2025-03-03] MEDS: Albuterol/Ipratropium 3 ML UPD VIAL UPD ×4 (00:56→23:13)
[2025-03-03] MEDS: hydrOXYzine HCL 10 MG TAB PO ×2 (04:01→14:04)
[2025-03-03] MEDS: LORazepam 1 MG TAB PO ×2 (04:01→14:04)
[2025-03-03] MEDS: Normal Saline Flush 10 ML SYR IVP ×7 (05:28→22:06)
[2025-03-03] MEDS: CEFEPIME 2 GM in Normal Saline 100 ML IVPB (05:28)
[2025-03-03 07:10] LABS: Abs Immature Grans 0.03 10^3/uL (0.0-0.06); Absolute Basophil Count 0.04 10^3/uL (0.0-0.2); Absolute Eosinophil Count 0.17 10^3/uL (0.0-0.7); Absolute Lymphocyte Count 3.68 10^3/uL (1.2-3.4); Absolute Monocyte Count 0.83 10^3/uL (0.1-0.8); Absolute Neutrophil Count 4.83 10^3/uL (1.2-6.7); Basophils % 0.4 %; Eosinophils % 1.8 %; HCT 38.4 % (40.0-50.0); HGB 12.6 g/dL (13.5-17.5); Immature Grans % 0.3 %; Lymphocytes % 38.4 %; MCH 29.8 pg (27.0-33.0); MCHC 32.8 % (32.0-36.0); MCV 91 fL (80-95); MPV 8.6 fL (8.0-11.0); Monocytes % 8.7 %; Neutrophils % 50.4 %; Platelet Count 288 10^3/uL (130-400); RBC 4.23 10^6/uL (4.36-5.78); RDW 14.7 % (11.8-14.1); RDW-SD 49.3 fL; WBC 9.58 10^3/uL (4.4-10.8)
[2025-03-03 07:25] LABS: Anion Gap 4.2 mmol/L (3-11); BUN 6 mg/dL (7-18); CO2 33.8 mmol/L (21.0-32.0); CREATININE 0.7 mg/dL (0.70-1.30); Calcium 9.6 mg/dL (8.5-10.1); Chloride 101 mmol/L (98-107); Glucose 97 mg/dL (74-106); Magnesium 1.8 mg/dL (1.8-2.4); Potassium 3.7 mmol/L (3.5-5.1); Sodium 139 mmol/L (136-145)
[2025-03-03] MEDS: FLUoxetine 20 MG CAP 40 MG PO (08:35)
[2025-03-03] MEDS: Vitamins B Comp w/C TAB 1 TAB PO (08:35)
[2025-03-03] MEDS: guaiFENesin 600 MG TABCR 1200 MG PO ×2 (08:35→20:08)
[2025-03-03] MEDS: predniSONE 20 MG TAB 40 MG PO (08:35)
[2025-03-03] MEDS: Gabapentin 600 MG TAB PO ×3 (08:35→20:08)
[2025-03-03] MEDS: ARIPiprazole 5 MG TAB PO (08:35)
[2025-03-03] MEDS: Folic Acid 1 MG TAB PO (08:35)
[2025-03-03] MEDS: Losartan 50 MG TAB PO (08:36)
[2025-03-03] MEDS: buPROPion-XL 150 MG TABCR PO (08:36)
[2025-03-03] MEDS: Methadone Liquid 10 MG/ML 130 MG PO (08:45)
--- NOTE | 2025-03-03 09:49 | PGE_ITS ---
Date of Service Date of service: 03/03/25 Time of Service: 11:00 Assessment and Plan Assessment and plan (1) Multifocal pneumonia: Status: Acute Assessment and plan: per CXR and CT - Sepsis criteria not met on admission -MRSA swab negative Blood culture positive for GPC in cluster repeat BC drawn and resolved pending provide Transition to oral azithromycin cefepime transition to ceftriaxone Continue nebs, prednisone, Acapella, incentive symmetry (2) Acute hypoxic respiratory failure: Status: Acute Assessment and plan: - Presumed secondary to multifocal pneumonia as noted above COPD At baseline currently (3) Acute and chronic respiratory failure with hypercapnia: Status: Acute Assessment and plan: Presumed secondary to point 1 and history of COPD- Intubated and transfered to a tertiary care center in 12/27/2024 for acute hypoxic respiratory failure with multifocal pneumonia At home wears 4 L of oxygen when at rest, and 8 L of oxygen during exertion. EMS found him to be saturating at 87 to 88%, increase his oxygen to 15 L by mask INFORMATICS EDUCATOR VBG PCO2 73 w PH 7.31 HCO3 37-initially - improving on repeat in the ED Continue to titrate O2 for sat 88% -92% (4) Bacteremia: Status: Acute Assessment and plan: GPC in clusters and as per point 1 (5) Anxiety: Status: Chronic Assessment and plan: Continue Lorazepam prn (6) Opioid dependence on agonist therapy: Status: Chronic Assessment and plan: -Continue outpatient dose of methadone. (7) Depression: Assessment and plan: Ongoing home medicie regimen (8) Nicotine dependence: Status: Chronic Assessment and plan: continue NRT prn (9) DVT prophylaxis: Status: Acute Assessment and plan: continue LMWH (10) Weak: Status: Acute Assessment and plan: increased SOB and weakness on ambulation on admission Continue PT PT recommendation for Home Health PT v rehab - patient willing to go to SNF- CM to follow - Declined at [address] Watts Subjective Subjective Patient reports: feels better, tolerating liquids well, tolerating a regular diet, voiding w/o difficulty and shortness of breath; denies diarrhea, nausea, vomiting or fever Exam Narrative Exam Narrative: 44-year-old male patient appearing older than stated age, alert and oriented x 3, tachypneic on exertion and oxygen, S1-S2 no murmur, regular rate and rhythm, decreased bibasilar breath sounds, abdomen is nondistended, soft, nontender, no CVA tenderness Objective Last Vital Signs Temp 36.7 C 03/03/25 07:45 Pulse 70 03/03/25 07:45 Resp 20 03/03/25 07:45 BP 115/75 03/03/25 07:45 Pulse Ox 93 03/03/25 07:45 Laboratory Results - last 24 hr 03/02/25 03/03/25 15:42 06:55 WBC 9.58 RBC 4.23 L Hgb 12.6 L Hct 38.4 L MCV 91 MCH 29.8 MCHC 32.8 RDW 14.7 H Plt Count 288 MPV 8.6 Immature Gran % 0.3 Neutrophils % 50.4 Lymphocytes % 38.4 Monocytes % 8.7 Eosinophils % 1.8 Basophils % 0.4 Nucleated RBC % 0.0 Absolute Neutrophils 4.83 Absolute Lymphocytes 3.68 H Absolute Monocytes 0.83 H Absolute Eosinophils 0.17 Absolute Basophils 0.04 Sodium 139 Potassium 3.7 Chloride 101 Carbon Dioxide 33.8 H Anion Gap 4.2 BUN 6 L Creatinine 0.7 Est GFR (CKD-EPI 2020) 115.80 Glucose 97 Calcium 9.6 Magnesium 1.8 MRSA (TEM-PCR) Negative PAWSS Have you Been Recently Intoxicated or Drunk Within the Last 30 days?: No Have you Ever Experienced Previous Episodes of Alcohol Withdrawal?: Yes Have you ever Experienced Withdrawal Seizures?: No Have you ever Experienced Delirium Tremens(DT)s?: No Have you ever undergone Alcohol Rehabilitation Treatment (i.e, inpt ot outpatient treatment programs)?: Yes Have you ever Experienced Blackouts?: No Have you ever Combined Alcohol with other Downers within the last 90 days?: No Have you ever Combined Alcohol with any other Substance of Abuse during the last 90 days?: No Positive Blood Alcohol level on Presentation? [PCS.BAL]: No Evidence of Increased Autonomic Activity (i.e. HR>120, tremor, sweating, agitation, nausea)?: No Result: 2 Time Spent with Patient Time Spent with Patient: >50 minutes Time was spent: preparing to see the patient(eg.review tests), obtaining and/or reviewing separately otained hiistory, ordering medications,tests, procedures, referring, communicating with other health healthcare manager, indepentently interpreting results, counseling the patient and care coordination
[2025-03-03] MEDS: cefTRIAXone 2 GM/50 ML BAG IVPB (11:23)
--- NOTE | 2025-03-03 13:07 | CMPROGNOTE_ITS ---
Date of service: 03/04/25 Time of Service: 08:26 Care Management Progress Note Progress Note Text Progress Note Text: William was sitting up in bed when CM met with him. He was polite but not overly talkative today. He informed CM that his mother had just stepped out to make a phone call but would be back shortly. According to nursing staff, she had asked to be included in discharge planning but unfortunately, she did not return to his room. William reported that he has a meeting today with his community outreach specialist through [facility]. He had requested an update regarding his applications for LTM and Social Security that she had started. Both [facility] and [facility] declined to offer William a bed. CM informed William that the fact that he is on methadone maintenance may be a barrier. He understands that he may need to be discharged home with a resumption of home health services vs transferring to a SNF. [facility] although both facilities indicated that the methadone may be an issue for their provider. Clinically, William is improving. His oxygen saturation has been in the 90s on 2-3 L/min of nasal oxygen; at baseline he is on 4-8 L/min. He remains afebrile and his vital signs are stable. Discharge Potential Discharge Needs: PCP F/U Appt Anticipated Barriers to Discharge: Bed availability Patient/Family Education Needs: Review discharge instructions, discuss Ask Me Three Transportation: Other (to be determined by disposition) Plan: Anticipate William will be discharged home when medically cleared. PT has recommended home health PT vs SNF with pulmonary rehab to address his respiratory limitations. Unfortunately, William is on maintenance methadone therapy for a NISHI prior history. This is a barrier for most facilities as not all providers are credentialed to order that drug. Referrals were sent to [facility] and [facility] and they both declined to make a bed offer. Additional referrals were sent to [facility] but both indicated the methadone may be an issue, although neither has made a formal determination. CM will follow and continue to assess for dsicharge needs. Social Determinants of Health Screening Social Determinants of health last assessed in clinic: 03/04/25 Will the Patient Participate in the Screening?: Yes Do you worry about having a steady place to live?: yes What is your living situation today?: I have housing today, but am worried about losing it Problems where you live: no known problems In the past 12 months, have you had to go without electric, gas, oil or water in your home?: yes 1. Within the past 12 months, we worried whether our food would run out before we got money to buy more.: Never true 2. Within the past 12 months, the food we bought just didn't last and we didn't have money to get more.: Never true Has lack of transportation kept you from medical appointments or from doing things needed for daily living?: yes Has anyone in your life made you feel unsafe or unsupported?: no How hard is it for you to pay for the very basics like food, housing, medical care, and heating? Would you say it is:: Somewhat hard Do you want help finding or keeping work or a job?: I do not need or want help If for any reason you need help with day-to-day activities such as bathing, preparing meals, shopping, managing finances, etc., do you get the help you need?: I need a lot more help How often do you feel lonely or isolated from those around you?: Rarely Do you speak a language other than Armenian at home?: No Health Related Social Needs Health related social needs: housing instability, housed, with risk of homeles sness (Z59.811), transportation insecurity (Z59.82), material hardship(utilities) (Z59.12), problems related to housing/economic circumstances (Z59.89), problems with daily activities (Z73.9) and feeling lonely/isolated (Z60.8) Health related social needs details: pt lives with aunt and uncle but not for long- feels like a burden and not able to live on own
[2025-03-03] MEDS: Azithromycin 250 MG TAB PO (14:00)
--- NOTE | 2025-03-03 14:40 | PT.INTREAT ---
PT Notes Visit Reasons: Acute hypoxic hypercarbic respiratory failure Physical Therapy Inpatient Treatment Note Date: 03/03/2025 Precautions: Fall. Standard. Activity as tolerated. Subjective: Finding more confidence to do more today. Feel more motivated to cover a longer distance before sitting down. Objective: General Observation: On 3 L of O2 via NC. IV through R UE capped. Mental Status: Alert and oriented as to person, place, time, and purpose. Able to pay attention, focus, and respond appropriately. Pain: None reported Vital Signs: Oxygen lowest at 81% on 6 L throughout walking activity with quick resaturation back up to 88% in 2-3 minutes of seated rest with walking distance of up to 30 feet at each time before sitting down Bed Mobility/Transfers: Minimal cueing only for self-pacing and pursed lip breathing when he starts to feel tired and out of breath Rolling independent Supine to sit independent Sit to supine independent Sit to stand independent Stand to sit independent Bed to reclining chair independent with FWW Reclining chair to bed independent with FWW Gait: Was able to tolerate 60 feet + 75 feet + 75 feet + 60 feet of med surg hallway ambulation with 3 seated rests. Minimal shortness of breath with desaturation down to 81% on 6 L with quick rebound to 88% in 1-2 minutes. Stand by assist only. Ayesha slowed. Balance: Static Sitting: Normal Dynamic Sitting: Normal Static Standing: Good Dynamic Standing: Fair Assessment: Gaining increased self-confidence to cover increased distance on level surface before sitting down. Oxygen saturation lowest of 81% on 6 L towards the end of walk. Initially needed 4 L only for the first half of walk with desaturation to 84% and quick resaturation (<1 minute) to 88%. Increased shaking noted in B legs with decreased oxygen level with activity. At home, patient may tolerate 30 feet of indoor ambulation with walker on 4-6 L to perform his essential ADLs. HH PT may come in to continue with progressing strength and activity tolerance. Pulmonary rehab needed to increase ventilatory function that can increase ability to sustain daily tasks. Plan of Care/Treatment Plan: Patient will be trained with and given copy of HEP prior to discharge to progress overall moility level and activity tolerance. DISCHARGE RECOMMENDATIONS: [] Home with no services [] [] Home with services [specify] [] Home with outpatient PT [] [] SNF for continued rehabilitation [] [] Interior Design Consultant Care [] [] SNF versus LTC based on ability to participate and progress [] [X] PT with pulmonary rehab vs. short-term SNF with pulmonary rehab to address activity tolerance limitations from respiratory pathology TREATMENT CODE/TIME: 75479 x 38 minutes for 3 units (14:40-15:08).
[2025-03-03] MEDS: Enoxaparin 40 MG/0.4 ML SYR SC (16:16)
[2025-03-04] VITALS (14 sets, daily range): BP systolic 114–123; BP diastolic 76–83; PULSE 72–88; RESP 2–24; TEMP 36.7–37.3; O2SAT 89–97
[2025-03-04] MEDS: Acetaminophen 325 MG TAB PO ×3 (01:42→23:00)
[2025-03-04] MEDS: LORazepam 1 MG TAB PO ×3 (01:42→13:43)
[2025-03-04] MEDS: hydrOXYzine HCL 10 MG TAB PO ×2 (01:43→21:30)
[2025-03-04] MEDS: Albuterol/Ipratropium 3 ML UPD VIAL UPD ×4 (05:42→23:45)
[2025-03-04 06:39] LABS: Abs Immature Grans 0.04 10^3/uL (0.0-0.06); Absolute Basophil Count 0.03 10^3/uL (0.0-0.2); Absolute Eosinophil Count 0.43 10^3/uL (0.0-0.7); Absolute Lymphocyte Count 3.63 10^3/uL (1.2-3.4); Absolute Monocyte Count 1.05 10^3/uL (0.1-0.8); Absolute Neutrophil Count 6.32 10^3/uL (1.2-6.7); Basophils % 0.3 %; Eosinophils % 3.7 %; HCT 39.5 % (40.0-50.0); Immature Grans % 0.3 %; Lymphocytes % 31.6 %; MCH 29.6 pg (27.0-33.0); MCHC 32.9 % (32.0-36.0); MCV 90 fL (80-95); MPV 8.6 fL (8.0-11.0); Monocytes % 9.1 %; Platelet Count 311 10^3/uL (130-400); RBC 4.39 10^6/uL (4.36-5.78); RDW 14.7 % (11.8-14.1); RDW-SD 48.9 fL; WBC 11.49 10^3/uL (4.4-10.8)
[2025-03-04 06:55] LABS: Anion Gap 4.1 mmol/L (3-11); BUN 9 mg/dL (7-18); CO2 33.9 mmol/L (21.0-32.0); CREATININE 0.6 mg/dL (0.70-1.30); Calcium 9.2 mg/dL (8.5-10.1); Chloride 98 mmol/L (98-107); Estimated GFR 121.32 (mL/min/1.73m2); Glucose 84 mg/dL (74-106); Potassium 3.4 mmol/L (3.5-5.1); Sodium 136 mmol/L (136-145)
[2025-03-04] MEDS: Folic Acid 1 MG TAB PO (07:51)
[2025-03-04] MEDS: Vitamins B Comp w/C TAB 1 TAB PO (07:51)
[2025-03-04] MEDS: Losartan 50 MG TAB PO (07:51)
[2025-03-04] MEDS: FLUoxetine 20 MG CAP 40 MG PO (07:51)
[2025-03-04] MEDS: predniSONE 20 MG TAB 40 MG PO (07:51)
[2025-03-04] MEDS: buPROPion-XL 150 MG TABCR PO (07:51)
[2025-03-04] MEDS: ARIPiprazole 5 MG TAB PO (07:51)
[2025-03-04] MEDS: guaiFENesin 600 MG TABCR 1200 MG PO ×2 (07:51→21:23)
[2025-03-04] MEDS: Gabapentin 600 MG TAB PO ×3 (07:51→21:23)
[2025-03-04] MEDS: Normal Saline Flush 10 ML SYR IVP ×2 (07:52→21:23)
[2025-03-04] MEDS: Methadone Liquid 10 MG/ML 130 MG PO (08:06)
--- NOTE | 2025-03-04 08:28 | PDOC.CMPRO ---
Date of service: 03/04/25 Time of Service: 08:28 Care Management Progress Note Progress Note Text Progress Note Text: William was sitting up in bed when CM met with him. He engaged easily with CM and was open to discussion. William has applied for [employer] Medicaid and hopes to be able to transition to an AFC home if/when approved. He feels that will be the best setting for him to receive care. He understands that it may take weeks or months for the process and will need to make alternative arrangements in the interim. William now has 3 blood cultures that are positive. An additional set was drawn on 03/03/25 and those results are pending. If the repeat cultures are also positive William may need to have additional testing to rule out endocarditis. William talked a bit about his past activities and how he has PTSD that makes him fearful in public places. He did state that he has not shot up with fentanyl or Heroin in several months although he continued to drink heavily and use cocaine on a daily basis up until admission. Discharge Potential Discharge Needs: PCP F/U Appt Anticipated Barriers to Discharge: Medical Status (positive blood cultures; may need IVAB) Patient/Family Education Needs: Review discharge instructions, discuss Ask Me Three Transportation: Private vehicle Plan: Anticipate William will be discharged home when medically cleared. PT has recommended home health PT vs SNF with pulmonary rehab to address his respiratory limitations. Unfortunately, William is on maintenance methadone therapy for a NISHI prior history. This is a barrier for most facilities as not all providers are credentialed to order that drug. Referrals were sent to [facility] and [facility] and they both declined to make a bed offer. [facility] but both indicated the methadone may be an issue, although neither has made a formal determination. CM will follow and continue to assess for discharge needs. Social Determinants of Health Screening Social Determinants of health last assessed in clinic: 03/04/25 Will the Patient Participate in the Screening?: Yes Do you worry about having a steady place to live?: yes What is your living situation today?: I have housing today, but am worried about losing it Problems where you live: no known problems In the past 12 months, have you had to go without electric, gas, oil or water in your home?: yes 1. Within the past 12 months, we worried whether our food would run out before we got money to buy more.: Never true 2. Within the past 12 months, the food we bought just didn't last and we didn't have money to get more.: Never true Has lack of transportation kept you from medical appointments or from doing things needed for daily living?: yes Has anyone in your life made you feel unsafe or unsupported?: no How hard is it for you to pay for the very basics like food, housing, medical care, and heating? Would you say it is:: Somewhat hard Do you want help finding or keeping work or a job?: I do not need or want help If for any reason you need help with day-to-day activities such as bathing, preparing meals, shopping, managing finances, etc., do you get the help you need?: I need a lot more help How often do you feel lonely or isolated from those around you?: Rarely Do you speak a language other than Bahamian at home?: No Health Related Social Needs Health related social needs: housing instability, housed, with risk of homelessness (Z59.811), transportation insecurity (Z59.82), material hardship(utilities) (Z59.12), problems related to housing/economic circumstances (Z59.89), problems with daily activities (Z73.9) and feeling lonely/isolated (Z60.8) Health related social needs details: pt lives with aunt and uncle but not for long- feels like a burden and not able to live on own
--- NOTE | 2025-03-04 09:25 | PGE_ITS ---
Date of Service Date of service: 03/04/25 Time of Service: 09:25 Assessment and Plan Assessment and plan (1) Gram-positive cocci bacteremia: Status: Acute Assessment and plan: Blood Cx initial growing micrococcus luteus Blood Cx( 03/02) second growing staph non aureus Blood Cx third ( 03/03) pending And as per point 2 (2) Multifocal pneumonia: Start date: 03/04/25 Start time: 16:49 Status: Acute Assessment and plan: per CXR and CT - Sepsis criteria not met on admission -MRSA swab negative Blood culture positive for micrococcus luteus - Will start Unasyn Repeat BCx from 03/03 growing Staph not aureus today X 2 bottles Third set repeated on 03/03: results still pending - if positive will consult ID VS pursue MALVIN Continue oral azithromycin Ceftriaxone d/c Ongoing nebs, prednisone, Acapella, incentive symmetry (3) Acute hypoxic respiratory failure: Status: Acute Assessment and plan: - Presumed secondary to multifocal pneumonia as noted above has a history of COPD on home oxygen Requires less than baseline currently (4) Acute and chronic respiratory failure with hypercapnia: Status: Acute Assessment and plan: Resolving Presumed secondary to point 1 and history of COPD- Intubated and transfered to a tertiary care center in 12/27/2024 for acute hypoxic respiratory failure with multifocal pneumonia At home wears 4 L of oxygen when at rest, and 8 L of oxygen during exertion; Post ARDS pulmonary fibrosis mentioned on d/c summary.Improving as the patient is now on less oxygen than needed at baseline. EMS found him to be saturating at 87 to 88%, increase his oxygen to 15 L by mask [employer] VBG PCO2 73 w PH 7.31 HCO3 37-initially - improving on repeat in the ED Continue to titrate O2 for sat 88% -92% (5) Anxiety: Status: Chronic Assessment and plan: Continue Lorazepam prn but will sujit down gradually as patient was not on Lorazepam at home - now from 1mg QID PRN to 0.5 mg QID PRN Quite drowsy ( eyelids half-closing) when seen but stated it's time for my Ativan Had to be weaned of Versed at [place] last month and developed transient A- fib RVR with diltiazem infusion administration during the process Also had refused tele-psych offer for adjustment his anti-anxiety drugs at [place] (6) Opioid dependence on agonist therapy: Status: Chronic Assessment and plan: Ongoing outpatient dose of methadone. (7) Depression: Assessment and plan: Continue home medicie regimen (8) Nicotine dependence: Status: Chronic Assessment and plan: continue nicotine replacement prn (9) DVT prophylaxis: Status: Acute Assessment and plan: continue lovenox (10) Weak: Status: Acute Assessment and plan: increased SOB and weakness on ambulation on admission- improving today ongoing PT PT recommendation for Home Health PT v rehab - patient willing to go to SNF- CM to follow - Declined at 2 centers -Most likely to be discharged home w HH when ready and if needed VS possibility of IV antibiotic at [facility] pending Point [address] Watts Subjective Subjective Patient reports: feels better, tolerating liquids well, tolerating a regular diet, voiding w/o difficulty and shortness of breath; denies diarrhea, nausea, vomiting or fever Exam Narrative Exam Narrative: 44-year-old male patient appearing older than stated age, alert and oriented x 3, tachypneic on exertion and oxygen, S1-S2 no murmur, regular rate and rhythm, decreased bibasilar breath sounds, abdomen is nondistended, soft, nontender, no CVA tenderness Objective Last Vital Signs Temp 37.1 C 03/04/25 08:35 Pulse 85 03/04/25 08:35 Resp 24 03/04/25 08:35 BP 114/80 03/04/25 08:35 Pulse Ox 91 L 03/04/25 08:35 Laboratory Results - last 24 hr 03/04/25 06:19 WBC 11.49 H RBC 4.39 Hgb 13.0 L Hct 39.5 L MCV 90 MCH 29.6 MCHC 32.9 RDW 14.7 H Plt Count 311 MPV 8.6 Immature Gran % 0.3 Neutrophils % 55.0 Lymphocytes % 31.6 Monocytes % 9.1 Eosinophils % 3.7 Basophils % 0.3 Nucleated RBC % 0.0 Absolute Neutrophils 6.32 Absolute Lymphocytes 3.63 H Absolute Monocytes 1.05 H Absolute Eosinophils 0.43 Absolute Basophils 0.03 Sodium 136 Potassium 3.4 L Chloride 98 Carbon Dioxide 33.9 H Anion Gap 4.1 BUN 9 Creatinine 0.6 L Est GFR (CKD-EPI 2020) 121.32 Glucose 84 Calcium 9.2 PAWSS Have you Been Recently Intoxicated or Drunk Within the Last 30 days?: No Have you Ever Experienced Previous Episodes of Alcohol Withdrawal?: Yes Have you ever Experienced Withdrawal Seizures?: No Have you ever Experienced Delirium Tremens(DT)s?: No Have you ever undergone Alcohol Rehabilitation Treatment (i.e, inpt ot outpatient treatment programs)?: Yes Have you ever Experienced Blackouts?: No Have you ever Combined Alcohol with other Downers within the last 90 days?: No Have you ever Combined Alcohol with any other Substance of Abuse during the last 90 days?: No Positive Blood Alcohol level on Presentation? [PCS.BAL]: No Evidence of Increased Autonomic Activity (i.e. HR>120, tremor, sweating, agitation, nausea)?: No Result: 2 Time Spent with Patient Time Spent with Patient: >50 minutes Time was spent: preparing to see the patient(eg.review tests), obtaining and/or reviewing separately otained hiistory, ordering medications,tests, procedures, r eferring, communicating with other health skin care technician, indepentently interpreting results, counseling the patient and care coordination
[2025-03-04] MEDS: AMPICILLIN/SULBACTAM 3 GM in Normal Saline 100 ML IVPB ×2 (12:07→18:04)
[2025-03-04] MEDS: Azithromycin 250 MG TAB PO (13:43)
--- NOTE | 2025-03-04 13:55 | PHA.REVIEW2 ---
Pharmacy Admission Review Admission Clinical Review Admission Pharmacy Review: Acute and chronic respiratory failure with hypercapnia (Acute) Bacteremia (Acute) Weak (Acute) DVT prophylaxis (Acute) Acute hypoxic respiratory failure (Acute) Multifocal pneumonia (Acute) No Known Allergies Allergy (Verified 12/23/24 14:59) Resuscitation Status Full Code Height 6 ft Weight 81.647 kg Pharmacy Admission Review Renal Dosing Renal Dosing: BUN 9 mg/dL (7-18) 03/04/25 06:19 Creatinine 0.6 mg/dL (0.70-1.30) L 03/04/25 06:19 Medications needing adjustments: Reviewed (CrCl 179.55 mL/min) List of meds needing interventions: Current medications are okay Anticoagulation Anticoagulation: Hgb 13.0 g/dL (13.5-17.5) L 03/04/25 06:19 Hct 39.5 % (40.0-50.0) L 03/04/25 06:19 Plt Count 311 10^3/uL (130-400) 03/04/25 06:19 Creatinine 0.6 mg/dL (0.70-1.30) L 03/04/25 06:19 DVT Prophylaxis: Reviewed Medications: Enoxaparin (40mg daily) Opiate Usage Evaluate Pain Scale/Pains Meds: Reviewed (methadone 130mg daily - dose confirmed with [facility]) Scheduled Bowel Reg ordered if on Opiates?: No Relevant Labs Relevant Labs: Sodium 136 mmol/L (136-145) 03/04/25 06:19 Potassium 3.4 mmol/L (3.5-5.1) L 03/04/25 06:19 Chloride 98 mmol/L (98-107) 03/04/25 06:19 Magnesium 1.8 mg/dL (1.8-2.4) 03/03/25 06:55 Electrolytes, C-Reactive P, ESR: Reviewed (K 3.4) Cardiac Review Cardiac Review: Troponin I Cancelled 02/28/25 14:32 BP, HR, EF%: Reviewed (BP and HR WNL) List meds needing interventions: Has order for losartan 50mg daily QTc Review QTc: Reviewed (458 from 03/01/25) IV to PO Switch IV Medications: Reviewed (Unasyn) Home Meds Home Med List reviewed: Reviewed Current Meds Current Medication Order Review: Reviewed Pharmacy Antibiotic Review Relevant Labs: WBC 11.49 10^3/uL (4.4-10.8) H 03/04/25 06:19 Temperature 36.7 C Temperature 37.1 C Temperature 37.3 C Microbiology 03/02/25 18:07 Blood Culture - Preliminary Blood Staph sp., not aureus 03/02/25 18:07 Blood Culture - Preliminary Blood Staph sp., not aureus 02/28/25 14:30 Blood Culture - Final Blood Micrococcus luteus 02/28/25 13:45 Blood Culture - Preliminary Blood NO GROWTH 72 HOURS Pharmacy Antibiotic Activity: Abx regimen adjustment (changed from cefepime to ceftriaxone yesterday and then changed again to Unasyn today) and C/S review Comments: Patient is on Unasyn day 1 and azithromycin PO (4 days total of antibiotic treatment), for pneumonia. WBC increased from 9.58 and repeat blood cultures pending.
--- NOTE | 2025-03-04 15:12 | PTTR_ITS ---
PT Notes Visit Reasons: Acute hypoxic hypercarbic respiratory failure Physical Therapy Inpatient Treatment Note Date: 03/04/2025 Precautions: Fall. Standard. Activity as tolerated. Supplemental O2 3LPM at rest; 8LPM with activity Subjective: William states that he's having a difficult day. His breathing has felt worse and he feels unsteady. Objective: General Observation: On 3 L of O2 via NC at rest. IV through R UE capped. Mental Status: Alert and oriented as to person, place, time, and purpose. Able to pay attention, focus, and respond appropriately. Pain: None reported Vital Signs: Oxygen 89% at rest on 3LPM via nasal cannula. Walks on 8LPM, desaturating as low as 78%, with recovery to 89% with pursed lip breathing. Bed Mobility/Transfers: Frequent cueing for self-pacing and pursed lip breathing when he starts to feel tired and out of breath Rolling independent Supine to sit independent Sit to supine independent Sit to stand independent Stand to sit independent Bed to reclining chair independent with FWW Reclining chair to bed independent with FWW Gait: Ambulates 60'x1, 80'x1 with FWW, SBA. Cued for breathing and pacing. On initial ambulation, desats to 84%, although with rapid ambulation with fatigue. Second rep working on pursed lip breathing and slowed pacing, although with significant desaturation at end of walk. Balance: Static Sitting: Normal Dynamic Sitting: Normal Static Standing: Good Dynamic Standing: Fair Treatment: Therapeutic exercises (43489 x 2): Ambulation as above, with cues for pacing and breathing techniques. Assistance for management of oxygen tank. Instructed in seated exercises. Reviewed patient's current independent exercise program, consisting of seated scapular retraction, supine leg lifts and supine bicycle crunches. Discussed discontinuation of supine exercises to avoid Valsalva maneuver. Instructed in seated march and seated LAQ, with focus on maintaining breathing patterns and pacing. Okay to continue Scap retraction. Assessment: Significant desaturation with short distance ambulation. Continues to require cueing for pacing and breathing techniques. Plan of Care/Treatment Plan: Patient will be trained with and given copy of HEP prior to discharge to progress overall moility level and activity tolerance. DISCHARGE RECOMMENDATIONS: [] Home with no services [] [] Home with services [specify] [] Home with outpatient PT [] [] SNF for continued rehabilitation [] [] [facility] [] [] SNF versus LTC based on ability to participate and progress [] [X] PT with pulmonary rehab vs. short-term SNF with pulmonary rehab to address activity tolerance limitations from respiratory pathology TREATMENT CODE/TIME: 86953 x 2 ([id number]) Piedad Norwood, PT, DPT [place] [facility]
[2025-03-04] MEDS: Enoxaparin 40 MG/0.4 ML SYR SC (16:27)
[2025-03-04] MEDS: LORazepam 1 MG TAB 0.5 MG PO ×2 (18:03→22:59)
[2025-03-04] MEDS: Nicotine 4 MG GUM CH ×2 (21:23→23:01)
[2025-03-05] MEDS: AMPICILLIN/SULBACTAM 3 GM in Normal Saline 100 ML IVPB ×2 (01:01→06:05)
[2025-03-05] MEDS: Normal Saline Flush 10 ML SYR IVP ×3 (01:01→08:20)
[2025-03-05 03:13] VITALS: BP 137/116; PULSE 101; RESP 20; TEMP 36.7; O2SAT 90
[2025-03-05 05:48] VITALS: PULSE 86; RESP 22; RESP 3; O2SAT 92
[2025-03-05] MEDS: Albuterol/Ipratropium 3 ML UPD VIAL UPD ×2 (05:48→13:22)
[2025-03-05 05:59] VITALS: PULSE 92
[2025-03-05] MEDS: Nicotine 4 MG GUM CH (06:05)
[2025-03-05] MEDS: Acetaminophen 325 MG TAB PO (06:06)
[2025-03-05] MEDS: LORazepam 1 MG TAB 0.5 MG PO (06:06)
[2025-03-05] MEDS: hydrOXYzine HCL 10 MG TAB PO (06:06)
[2025-03-05 07:02] LABS: Abs Immature Grans 0.03 10^3/uL (0.0-0.06); Absolute Basophil Count 0.05 10^3/uL (0.0-0.2); Absolute Monocyte Count 0.86 10^3/uL (0.1-0.8); Absolute Neutrophil Count 5.71 10^3/uL (1.2-6.7); Basophils % 0.4 %; Eosinophils % 6.5 %; HCT 39.3 % (40.0-50.0); HGB 13.2 g/dL (13.5-17.5); Immature Grans % 0.3 %; Lymphocytes % 34.7 %; MCH 29.7 pg (27.0-33.0); MCHC 33.6 % (32.0-36.0); MCV 89 fL (80-95); MPV 10.5 fL (8.0-11.0); Monocytes % 7.6 %; Neutrophils % 50.5 %; RBC 4.44 10^6/uL (4.36-5.78); RDW 14.6 % (11.8-14.1); RDW-SD 47.1 fL; WBC 11.31 10^3/uL (4.4-10.8)
[2025-03-05 07:03] LABS: Absolute Eosinophil Count 0.74 10^3/uL (0.0-0.7); Absolute Lymphocyte Count 3.92 10^3/uL (1.2-3.4); Platelet Count 150 10^3/uL (130-400)
[2025-03-05 07:04] LABS: Diff Comment Agrees w/ Instrument; RBC Morphology Normal
[2025-03-05 07:59] LABS: Anion Gap 5.3 mmol/L (3-11); BUN 6 mg/dL (7-18); CO2 32.7 mmol/L (21.0-32.0); CREATININE 0.7 mg/dL (0.70-1.30); Calcium 9.3 mg/dL (8.5-10.1); Chloride 100 mmol/L (98-107); Glucose 80 mg/dL (74-106); Potassium 3.4 mmol/L (3.5-5.1); Sodium 138 mmol/L (136-145)
[2025-03-05] MEDS: ARIPiprazole 5 MG TAB PO (08:19)
[2025-03-05] MEDS: guaiFENesin 600 MG TABCR 1200 MG PO (08:19)
[2025-03-05] MEDS: predniSONE 20 MG TAB 40 MG PO (08:19)
[2025-03-05] MEDS: buPROPion-XL 150 MG TABCR PO (08:19)
[2025-03-05] MEDS: FLUoxetine 20 MG CAP 40 MG PO (08:19)
[2025-03-05] MEDS: Losartan 50 MG TAB PO (08:19)
[2025-03-05] MEDS: Gabapentin 600 MG TAB PO (08:20)
[2025-03-05] MEDS: Vitamins B Comp w/C TAB 1 TAB PO (08:20)
[2025-03-05] MEDS: Folic Acid 1 MG TAB PO (08:20)
[2025-03-05] MEDS: Methadone Liquid 10 MG/ML 130 MG PO (08:21)
[2025-03-05 08:24] VITALS: BP 110/80; PULSE 82; RESP 18; TEMP 36.7; O2SAT 93
--- NOTE | 2025-03-05 09:49 | W.PM.PROGNOT ---
Date of Service Date of service: 03/05/25 Time of Service: 09:49 Assessment and Plan Assessment and plan (1) Gram-positive cocci bacteremia: Status: Acute Assessment and plan: Blood Cx initial growing micrococcus luteus Blood Cx( 03/02) second growing staph non aureus Blood Cx third ( 03/03) negative at 24 hours And as per point 2 (2) Multifocal pneumonia: Start date: 03/04/25 Start time: 16:49 Status: Acute Assessment and plan: per CXR and CT - Sepsis criteria not met on admission -MRSA swab negative Blood culture positive for micrococcus luteus - spoke to Helena Lewis from lab- this was most likely a contaminant Continue Unasyn Trimethoprim-Sulfamethxazole Repeat BCx from 03/03 growing Staph not aureus today X 2 bottles- againt s/p discussion with micro- contaminant Third set repeated on 03/03: negative results still pending - if positive will consult ID VS pursue MALVIN Echo did not rule in vegetations - will not pursue MALVIN as Blood Cx - contaminants Continue oral azithromycin Ceftriaxone d/c Ongoing nebs, prednisone, Acapella, incentive symmetry (3) Acute hypoxic respiratory failure: Status: Acute Assessment and plan: - Presumed secondary to multifocal pneumonia as noted above has a history of COPD on home oxygen Requires less than baseline currently (4) Acute and chronic respiratory failure with hypercapnia: Status: Acute Assessment and plan: Resolving Presumed secondary to point 1 and history of COPD- Intubated and transfered to a tertiary care center in 12/27/2024 for acute hypoxic respiratory failure with multifocal pneumonia At home wears 4 L of oxygen when at rest, and 8 L of oxygen during exertion; Post ARDS pulmonary fibrosis mentioned on d/c summary.Improving as the patient is now on less oxygen than needed at baseline. EMS found him to be saturating at 87 to 88%, increase his oxygen to 15 L by mask [employer] TR[employer] TE[employer]ER VBG PCO2 73 w PH 7.31 HCO3 37-initially - improving on repeat in the ED Continue to titrate O2 for sat 88% -92% (5) Anxiety: Status: Chronic Assessment and plan: Continue Lorazepam prn but will sujit down gradually as patient was not on Lorazepam at home - now from 1mg QID PRN to 0.5 mg QID PRN Quite drowsy ( eyelids half-closing) when seen but stated it's time for my Ativan Had to be weaned of Versed at [place] last month and developed transient A-fib RVR with diltiazem infusion administration during the process Also had refused tele-psych offer for adjustment his anti-anxiety drugs at [place] (6) Opioid dependence on agonist therapy: Status: Chronic Assessment and plan: Ongoing outpatient dose of methadone. (7) Depression: Assessment and plan: Continue home medicie regimen (8) Nicotine dependence: Status: Chronic Assessment and plan: continue nicotine replacement prn (9) DVT prophylaxis: Status: Acute Assessment and plan: continue lovenox (10) Weak: Status: Acute Assessment and plan: increased SOB and weakness on ambulation on admission- improving today ongoing PT PT recommendation for Home Health PT v rehab - patient willing to go to SNF- CM to follow - Declined at 2 centers -Most likely to be discharged home w HH when ready and if needed VS possibility of IV antibiotic at [facility] pending Point [address] Watts Exam Narrative Exam Narrative: 44-year-old male patient appearing older than stated age, alert and oriented x 3, tachypneic on exertion and oxygen, S1-S2 no murmur, regular rate and rhythm, decreased bibasilar breath sounds, abdomen is nondistended, soft, nontender, no CVA tenderness Objective Last Vital Signs Temp 36.7 C 03/05/25 08:24 Pulse 82 03/05/25 08:24 Resp 18 03/05/25 08:24 BP 110/80 03/05/25 08:24 Pulse Ox 93 03/05/25 08:24 Laboratory Results - last 24 hr 03/05/25 03/05/25 06:05 07:30 WBC 11.31 H RBC 4.44 Hgb 13.2 L Hct 39.3 L MCV 89 MCH 29.7 MCHC 33.6 RDW 14.6 H Plt Count 150 D MPV 10.5 Immature Gran % 0.3 Neutrophils % 50.5 Lymphocytes % 34.7 Monocytes % 7.6 Eosinophils % 6.5 Basophils % 0.4 Nucleated RBC % 0.0 Absolute Neutrophils 5.71 Absolute Lymphocytes 3.92 H Absolute Monocytes 0.86 H Absolute Eosinophils 0.74 H Absolute Basophils 0.05 RBC Morphology Normal Sodium Cancelled 138 Potassium Cancelled 3.4 L Chloride Cancelled 100 Carbon Dioxide Cancelled 32.7 H Anion Gap Cancelled 5.3 BUN Cancelled 6 L Creatinine Cancelled 0.7 Est GFR (CKD-EPI 2020) Cancelled 115.80 Glucose Cancelled 80 Calcium Cancelled 9.3 PAWSS Have you Been Recently Intoxicated or Drunk Within the Last 30 days?: No Have you Ever Experienced Previous Episodes of Alcohol Withdrawal?: Yes Have you ever Experienced Withdrawal Seizures?: No Have you ever Experienced Delirium Tremens(DT)s?: No Have you ever undergone Alcohol Rehabilitation Treatment (i.e, inpt ot outpatient treatment programs)?: Yes Have you ever Experienced Blackouts?: No Have you ever Combined Alcohol with other Downers within the last 90 days?: No Have you ever Combined Alcohol with any other Substance of Abuse during the last 90 days?: No Positive Blood Alcohol level on Presentation? [PCS.BAL]: No Evidence of Increased Autonomic Activity (i.e. HR>120, tremor, sweating, agitation, nausea)?: No Result: 2
--- NOTE | 2025-03-05 10:12 | PTTR_ITS ---
PT Notes Visit Reasons: Acute hypoxic hypercarbic respiratory failure Physical Therapy Inpatient Treatment Note Date: 03/04/2025 Precautions: Fall. Standard. Activity as tolerated. Supplemental O2 4LPM at rest; 8LPM with activity Subjective: William states that he is tired as he has not slept well. He is also worried about d/c plan and reports that he can stay with an Aunt on a short term basis. Objective: Mental Status: Alert and oriented as to person, place, time, and purpose. Able to pay attention, focus, and respond appropriately. Pain: None reported Walks on 8LPM, desaturating as low as 84%, with recovery to 90% with pursed lip breathing. Bed Mobility/Transfers: Frequent cueing for self-pacing and pursed lip breathing when he starts to feel tired and out of breath Status with prior session: Rolling independent Bed to reclining chair independent with FWW Reclining chair to bed independent with FWW Today: Supine to sit independent Sit to supine independent Sit to stand independent Stand to sit independent Gait: Ambulates 80'x 4 with FWW, SBA and wheel chair following. Cued for breathing and pacing. O2 sat improved when pt cued to slow his pace Balance: Static Sitting: Normal Dynamic Sitting: Normal Static Standing: Good Dynamic Standing: Fair Treatment: Therapeutic exercises (81656 x 1): Ambulation as above, with cues for pacing and breathing techniques. Assistance for management of oxygen tank. Assessment: Pt did better with tolerance to ambulation today. Pt was able to recover after brief seated rest breaks. Plan of Care/Treatment Plan: Patient will be trained with and given copy of HEP prior to discharge to progress overall mobility level and activity tolerance. DISCHARGE RECOMMENDATIONS: [] Home with no services [] [] Home with services [specify] [] Home with outpatient PT [] [] SNF for continued rehabilitation [] [] [facility] [] [] SNF versus LTC based on ability to participate and progress [] [X] PT with pulmonary rehab vs. short-term SNF with pulmonary rehab to address activity tolerance limitations from respiratory pathology TREATMENT CODE/TIME: 06524 x 1 (9:50?10:10) Judy Cid, PT [facility]
--- NOTE | 2025-03-05 10:53 | W.PM.DS.N ---
Date of service: 03/05/25 Time of Service: 10:54 DS: Diagnosis Discharge Diagnosis (1) Gram-positive cocci bacteremia: Status: Acute (2) Multifocal pneumonia: Status: Acute (3) Acute hypoxic respiratory failure: Status: Acute (4) Acute and chronic respiratory failure with hypercapnia: Status: Acute (5) Anxiety: Status: Chronic (6) Opioid dependence on agonist therapy: Status: Chronic (7) Depression: (8) Nicotine dependence: Status: Chronic (9) DVT prophylaxis: Status: Acute (10) Weak: Status: Acute Discharge Plan Disposition Patient Disposition: Home W/Home Health Services Condition: Improving Discharge Details Reason For Visit: Acute hypoxic hypercarbic respiratory failure Admit Date/Time: 02/28/25 14:25 Admit Provider: Earl Zelaya Attending Provider: Earl Zelaya Primary Care Provider: Renny Rollins Hospital Course Hospital Course: This 44-year-old male with a past medical history of hypoxic respiratory failure (requiring prior intubation for multifocal pneumonia),nicotine dependence, reactive airway disease vs pulmonary fibrosis, polysubstance use disorder, hypertension, and chronic supplemental oxygen use (4L at rest, 8L on exertion), presented to the [facility] 02/28/25 via EMS with acute worsening dyspnea and hypoxia. Work-up was positive formultifocal consolidations as per imaging, comparable to prior but blood work was unremarkable except for initial VBG demonstrated hypercarbia (CO2 73), which improved slightly (CO2 67) after treatment with nebulized bronchodilators and systemic steroids and stabilized on 4L O2 by nasal cannula (return to baseline) . In the ED the patient was treated with cefepime and azithromycin for possible bacterial pneumonia, and admitted to the medical floor for continued management and monitoring. Vancomycin added for initial GPC findings in blood cultures which later differentiated to micrococcus luteus with adjustment of antibiotics. Subsequent blood cultures grew contaminant and third set of blood culture was negative. Echocardiogram failed to rule in endocarditis and showed no significant abnormalities. Today, as per microbiology the micrococcus Luteus finding was also a contaminant. 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 Scripts sent to pharmacy for oral antibiotics, probiotics, and oral prednisone. Continue incentive spirometry at home. As per pharmacy communication with [facility], you were issued methadone until the 03/01/25 inclusively and since you were admitted on 02/28/25, you should have one dose left at home. If you cannot find it and have symptoms of withdrawal tomorrow; you should seek assistance in ED and explain your situation. [facility] pharmacy is not legally allowed to dispense methadone for you to go home [facility] [place]. Recommendation for PCP follow-up: Chemistry labs Immuno-suppression work-up Pulmonology referral scheduled in 03/[address] Watts Home Meds and New Rx's Prescriptions: New sulfamethoxazole-trimethoprim [Bactrim DS] 800-160 mg tablet 1 tab PO Q12H Qty: 20 0RF Bio-K plus 50 billion cell capsule,delayed release(DR/EC) 1 cap PO DAILY Qty: 10 0RF prednisone 20 mg tablet 20 mg PO DAILY Qty: 2 0RF guaifenesin [Mucinex] 1,200 mg tablet extended release 12hr 1,200 mg PO BID Qty: 10 0RF Continued methadone 10 mg/mL concentrate 130 mg PO DAILY Patient Comments: @ [facility], verified last dose 12/23/24 for 130 mg fluoxetine 40 mg capsule 40 mg PO DAILY Patient Comments: TAKE ONE CAPSULE BY MOUTH EVERY MORNING gabapentin 600 mg tablet 600 mg PO TID Patient Comments: TAKE ONE TABLET BY MOUTH THREE TIMES A DAY DIRECTED losartan 50 mg tablet 50 mg PO DAILY Patient Comments: TAKE ONE TABLET BY MOUTH EVERY MORNING, FOR HIGH BLOOD PRESSURE aripiprazole 5 mg tablet 5 mg PO DAILY Patient Comments: TAKE ONE TABLET BY MOUTH EVERY DAY bupropion HCl 150 mg tablet extended release 24 hr 150 mg PO DAILY Patient Comments: TAKE ONE TABLET BY MOUTH EVERY DAY vitamin B complex Capsule 1 cap PO ONCE Patient Comments: TAKE ONE CAPSULE BY MOUTH EVERY MORNING folic acid 1 mg tablet 1 mg PO DAILY Patient Comments: TAKE ONE TABLET BY MOUTH EVERY DAY hydroxyzine HCl 10 mg tablet 10 mg PO Q8H PRN Patient Comments: TAKE ONE TABLET BY MOUTH EVERY 8 HOURS NEEDED FOR ANXIETY Discharge Instructions Referrals: Renny Rollins [Primary Care Provider] - (Follow-up with PCP within 7 days of discharge, please) Activity:: Activity as Tolerated Equipment/Supplies:: Walker Diet:: heart healthy Discharge Orders Discharge Orders: Discharge Order (Routine); Ordered 03/05/25 Ordered By: Radhika Zimmer DS: Summary Time Spent with Patient providing and/or coordinating discharge services: Greater than 30 minutes Status at Discharge Functional status at discharge: uses cane/walker Overall status at discharge: patient is back to baseline Mental Status: mental status grossly normal Speech and Movement: speech and movement normal Mood: congruent mood Affect: normal affect and anxious affect Quality:SDOH Health Related Social Needs: Health related social needs housing instability, housed, with risk of homelessness (Z59.811), transportation insecurity (Z59.82), material hardship(utilities) (Z59.12), problems related to housing/economic circumstances (Z59.89), problems with daily activities (Z73.9), feeling lonely/isolated (Z60.8) Health related social needs details pt lives with aunt and uncle but not for long- feels like a burden and not able to live on own Health related social needs details: pt lives with aunt and uncle but not for long- feels like a burden and not able to live on own Exam Narrative Exam Narrative: Alert and oriented x 3, no acute distress, S1-S2 regular, no murmur, regular rate and rhythm, decreased bibasilar breath sounds with minimal fine velcro-like crackles, abdomen is non-distended, soft, non-tender, no CVA tenderness, moves all 4 extremities. Psych Mental Status: mental status grossly normal Speech and Movement: speech and movement normal Mood: congruent mood Affect: normal affect and anxious affect DS: Data Vitals/I&O Vitals and I&O: Vital Signs Temperature 36.7 C 03/05/25 08:24 Temperature Source Temporal Artery Scan 03/05/25 08:24 Pulse 82 03/05/25 08:24 Pulse Rhythm Regular 02/28/25 15:24 Pulse 63 02/28/25 12:50 Respiratory Rate 18 03/05/25 08:24 Respiratory Effort Normal, Incrsd Work of Breathing 02/28/25 15:24 Respiratory Depth Normal 02/28/25 15:24 Respiratory Pattern Normal 02/28/25 15:24 Blood Pressure 110/80 03/05/25 08:24 Blood Pressure Mean 90 03/05/25 08:24 Blood Pressure Position Sitting 02/28/25 11:27 Pulse Oximetry 93 03/05/25 08:24 Oxygen Delivery Method Nasal Cannula 03/05/25 08:24 Oxygen Flow Rate 4 03/05/25 08:24 Pain Level 5 03/05/25 08:24 Comment RN notified 03/04/25 15:58 Intake & Output 03/04/25 03/04/25 03/05/25 11:59 23:59 11:59 Intake Total 960 / 1170 210 / 1170 1550 / 1550 Output Total 1300 / 2225 925 / 2225 950 / 950 Balance -340 / -1055 -715 / -1055 600 / 600 Intake: IV 210 / 210 200 / 200 Oral 960 / 960 1350 / 1350 Output: Urine 1300 / 2225 925 / 2225 950 / 950 Other: Urine Color Yellow Yellow Yellow Urine Appearance Clear Clear Clear Urine Odor None Normal None Data Completed and Pending Labs on day of discharge: Labs from last 24 hours 03/05/25 03/05/25 07:30 06:05 WBC 11.31 H RBC 4.44 Hgb 13.2 L Hct 39.3 L MCV 89 MCH 29.7 MCHC 33.6 RDW 14.6 H Plt Count 150 D MPV 10.5 Immature Gran % 0.3 Neutrophils % 50.5 Lymphocytes % 34.7 Monocytes % 7.6 Eosinophils % 6.5 Basophils % 0.4 Nucleated RBC % 0.0 Absolute Neutrophils 5.71 Absolute Lymphocytes 3.92 H Absolute Monocytes 0.86 H Absolute Eosinophils 0.74 H Absolute Basophils 0.05 RBC Morphology Normal Sodium 138 Cancelled Potassium 3.4 L Cancelled Chloride 100 Cancelled Carbon Dioxide 32.7 H Cancelled Anion Gap 5.3 Cancelled BUN 6 L Cancelled Creatinine 0.7 Cancelled Est GFR (CKD-EPI 2020) 115.80 Cancelled Glucose 80 Cancelled Calcium 9.3 Cancelled Preliminary micro results at discharge 03/02/25 18:07 Blood Blood Culture - Preliminary Staph sp., not aureus 03/03/25 17:48 Blood Blood Culture - Preliminary NO GROWTH 24 HOURS 03/03/25 16:40 Blood Blood Culture - Preliminary NO GROWTH 24 HOURS 02/28/25 13:45 Blood Blood Culture - Preliminary NO GROWTH 96 HOURS PFSH All Active Problems (Updated 03/04/25 @ 17:01 by Radhika Zimmer APRN) Gram-positive cocci bacteremia (Acute) Acute and chronic respiratory failure with hypercapnia (Acute) Anxiety (Chronic) Bacteremia (Acute) Weak (Acute) Acute respiratory failure with hypoxia and hypercarbia (Acute) DVT prophylaxis (Acute) Alcohol withdrawal (Acute) Acute hypoxic respiratory failure (Acute) Multifocal pneumonia (Acute) Abdominal cramping (Acute) Ileus (Acute) Acute hypokalemia (Acute) HTN (hypertension) (Chronic) Suicide ideation (Acute) Polysubstance abuse (Chronic) Opioid use disorder (Acute) Nicotine dependence (Chronic) Opioid dependence on agonist therapy (Chronic) Alcohol dependence (Chronic) Medical History Pancreatitis DVT (deep venous thrombosis) History of osteomyelitis Hepatitis B Hepatitis C Depression Alcohol withdrawal Polysubstance abuse Family History Other Alcohol use disorder Depression Social History Smoking/Tobacco Use Status: Current every day Tobacco Type: cigarettes Smoking risk assessment performed?: Yes Alcohol Intake: current Alcohol Intake frequency: 3 or more drinks per day Alcohol type: hard liquor Drug use: Daily Substance use type: marijuana Details: Pt states he last used marijuana 10/23/24 Last used ETOH about 10/16/24 Housing: house Do you feel safe at home: Yes Do you feel safe in your relationship?: Yes Time Spent with Patient Time Spent with Patient: 70-84 minutes4 Time was spent: preparing to see the patient(eg.review tests), obtaining and/or reviewing separately otained hiistory, ordering medications,tests, procedures, referring, communicating with other health career development coordinator/teacher, indepentently interpreting results, counseling the patient and care coordination
--- NOTE | 2025-03-05 12:03 | CMDISCH_ITS ---
Date of service: 03/05/25 Time of Service: 12:03 LACE Index Scoring Tool Questions: Length of Stay (in days): 4 - 6 Was the patient admitted via the E.D.?: Yes Comorbidities: Chronic Pulmonary Disease E.D. Visits: 5 Answers: Total Score: 13 Risk of Readmission: High Risk Care Management Discharge Plan Reason for Hospitalization: acute hypoxic respiratory failure Discharge Plan: William will return home with a resumption of HH RN, PT, OT, [employer]. He will transport via private vehicle by family, who will bring in his O2 tank for transport. He will follow up with his PCP and discharge plan of care. He will need to come to the ED for his methadone dosing, as [facility] is not open on Friday or Friday this week (/); CM communicated this to the ED provider. He is happy to be going home. Patient/Family Education Needs: Review discharge instructions and limitations, discussion of self care needs including ask me three. Services Needed at Discharge: Home Health Care Services (resume HH RN, PT, OT, [employer]ANT) SDOH Health Related Social Needs: Health related social needs housing instability, house d, with risk of homelessness (Z59.811), transportation insecurity (Z59.82), material hardship(utilities) (Z59.12), problems related to housing/economic circumstances (Z59.89), problems with daily activities (Z73.9), feeling lonely/isolated (Z60.8) Health related social needs details pt lives with aunt and uncle but not for long- feels like a burden and not able to live on own Health related social needs details: pt lives with aunt and uncle but not for long- feels like a burden and not able to live on own
[2025-03-05] MEDS: Potassium Chloride 10 MEQ TABCR PO (12:12)
[2025-03-05] MEDS: Sulfameth/Trimeth DS TAB 1 TAB PO (12:12)
[2025-03-05 13:22] VITALS: PULSE 74; RESP 20; RESP 3; O2SAT 94
[2025-03-05 13:40] VITALS: PULSE 73; O2SAT 91
== END 2025-03-05 14:39 | disposition home health service (06) | DRG 193 ==
LOC: ER 14:37 → MS 15:21
PROVIDERS: Nurse Practitioner Family; Admitting Provider Hospitalist; Emergency Provider Emergency Medicine; PCP Student in an Organized Health Care Education/Training Program; Responsible Provider Nurse Practitioner Acute Care; Visit Provider Hospitalist
DX: J18.9 Pneumonia, unspecified organism (principal); J96.01 Acute respiratory failure with hypoxia; J96.22 Acute and chronic respiratory failure with hypercapnia; J44.0 Chronic obstructive pulmonary disease with (acute) lower respiratory infection; R78.81 Bacteremia; F11.20 Opioid dependence, uncomplicated; F32.89 Other specified depressive episodes; F17.210 Nicotine dependence, cigarettes, uncomplicated; R53.1 Weakness; F41.9 Anxiety disorder, unspecified; E87.6 Hypokalemia; F19.10 Other psychoactive substance abuse, uncomplicated; F10.20 Alcohol dependence, uncomplicated; I10 Essential (primary) hypertension; Z99.81 Dependence on supplemental oxygen; Z86.718 Personal history of other venous thrombosis and embolism
CPT/HCPCS: 00123; 36415; 80048; 80053; 80307; 82805; 87040; 87077; 87637; 87641; 94640; 94761; 96365; 96367; 96375; 97110; 97162; 97530; 99285; J1650; 71046; 83735; 84484; 85025; 87186; 93005; 93010; 93306; 94667; 94760; 99222; 99232; 99233; 99239; J0295; J0456; J0692; J0696; J2060; J2919; J7512; J7613; J7620

== ENCOUNTER 2025-03-06 11:05 | Emergency (ER) | payer MEDICAID, SELFPAY ==
[2025-03-06] VITALS (45 sets, daily range): BP systolic 113–146; BP diastolic 69–95; PULSE 62–110; RESP 15–40; TEMP 35.8–36.9; O2SAT 85–97
--- NOTE | 2025-03-06 11:00 | RT.EKG_ITS ---
APPROVED REPORT Exam: Resting ECG Reason for Exam: respiratory distress Patient Location: E HR:78 bpm ECG Measurements Heart Rate 78 AXIS MA 142 P 7 QRSd 88 QRS 5 QT 413 T 27 QTc 471 Conclusion Sinus rhythm...normal P axis, V-rate 60- 99
--- NOTE | 2025-03-06 11:15 | DI.RAD_ITS ---
Exam(s) XR CHEST 2V PA LATERAL EXAM: XR CHEST 2V PA LATERAL CLINICAL HISTORY: shortness of breath TECHNIQUE: 2D digital imaging was performed. Two views. COMPARISON: CT CT CHEST PE CTA from 12/25/2024 CR,XR XR PORTABLE CHEST AP POST LINE from 12/27/2024 CR XR CHEST 2V PA LATERAL from 02/25/2025 FINDINGS: The lungs are expiratory on both views, similar to prior exam.. There is also underpenetration. HEART: Partially obscured by infiltrates. Aorta: Not dilated. PULMONARY VASCULATURE: Normal. MEDIASTINUM: Unremarkable. LUNGS: Bilateral infiltrates again noted, left greater than right with grossly stable appearance from prior exam. PLEURAL SPACE: No pleural effusion or pneumothorax. BONE:Unremarkable for age. SOFT TISSUES: Unremarkable. IMPRESSION: Stable stable bilateral pulmonary infiltrates. DATA REPOSITORY: RADIATION DOSE DELIVERED:
--- NOTE | 2025-03-06 11:26 | ED.GENADUL_ITS ---
Discharge Plan Disposition Patient Disposition: Home Condition: Stable Discharge Details Clinical Impression: Multifocal pneumonia, Hypoxia Primary Care Provider: Renny Rollins ED Provider: Carlos Coombs Home Meds and New Rx's Prescriptions: New doxycycline hyclate 100 mg tablet 100 mg PO BID Qty: 13 0RF Continued methadone 10 mg/mL concentrate 130 mg PO DAILY Patient Comments: @ HUNTER, yissel last dose 12/23/24 for 130 mg thiamine HCl (vitamin B1) 100 mg tablet 100 mg PO DAILY Patient Comments: TAKE ONE TABLET BY MOUTH DAILY fluoxetine 40 mg capsule 40 mg PO DAILY Patient Comments: TAKE ONE CAPSULE BY MOUTH EVERY MORNING gabapentin 600 mg tablet 600 mg PO TID Patient Comments: TAKE ONE TABLET BY MOUTH THREE TIMES A DAY DIRECTED losartan 50 mg tablet 50 mg PO DAILY Patient Comments: TAKE ONE TABLET BY MOUTH EVERY MORNING, FOR HIGH BLOOD PRESSURE aripiprazole 5 mg tablet 5 mg PO DAILY Patient Comments: TAKE ONE TABLET BY MOUTH EVERY DAY bupropion HCl 150 mg tablet extended release 24 hr 150 mg PO DAILY Patient Comments: TAKE ONE TABLET BY MOUTH EVERY DAY vitamin B complex Capsule 1 cap PO ONCE Patient Comments: TAKE ONE CAPSULE BY MOUTH EVERY MORNING folic acid 1 mg tablet 1 mg PO DAILY Patient Comments: TAKE ONE TABLET BY MOUTH EVERY DAY hydroxyzine HCl 10 mg tablet 10 mg PO Q8H PRN Patient Comments: TAKE ONE TABLET BY MOUTH EVERY 8 HOURS NEEDED FOR ANXIETY sulfamethoxazole-trimethoprim [Bactrim DS] 800-160 mg tablet 1 tab PO Q12H Qty: 20 0RF Patient Comments: hasnt started yet Bio-K plus 50 billion cell capsule,delayed release(DR/EC) 1 cap PO DAILY Qty: 10 0RF prednisone 20 mg tablet 20 mg PO DAILY Qty: 2 0RF Patient Comments: hasn't started yet guaifenesin [Mucinex] 1,200 mg tablet extended release 12hr 1,200 mg PO BID Qty: 10 0RF ipratropium-albuterol 0.5 mg-3 mg(2.5 mg base)/3 mL Solution For Nebulization 3 ml UPD Q6H PRNQty: 90 0RF Patient Comments: hasn't started yet No Action budesonide 0.5 mg/2 mL suspension for nebulization 0.5 mg inhalation BID Qty: 60 12RF Discharge Instructions Instructions: Pneumonia, Adult ED Additional Instructions: Please take full course of antibiotics as prescribed. You received a dose of steroid today. Your next dose is tomorrow. Please follow-up with pulmonology and primary care physician this week. Return to the ER immediately for any worsening or new concerning symptoms. Referrals: [facility] [Provider Group] Renny Rollins [Primary Care Provider] - Discharge Data Discharge Date/Time-TO BE ENTERED AT DEPARTURE: 03/06/25 15:50 HPI General Mode of arrival: ambulatory . Date/Time Provider Initiated Documentation: 03/06/25 11:14 . Limitations to Documentation: no limitations . Information obtained by: patient and EMS . HPI Narrative: 44-year-old male with multiple medical problems including history of opioid use disorder, on methadone, reactive airway disease versus pulmonary fibrosis, on home O2, recent admission for hypoxic respiratory failure, found to have multifocal pneumonia and initial concern for gram-positive cocci bacteremia?subsequently thought to be contaminant, discharged yesterday, not yet able to fill his prescriptions for neb treatments, prednisone, or antibiotic that was prescribed at discharge. He woke this morning and was short of breath which she describes as unable to breathe. EMS was called and responded and found the patient hypoxic in the 80s. Multiple DuoNeb treatments were given as well as Solu-Medrol IM and epinephrine IM. Patient's respiratory status improved. He continues to have some shortness of breath. No chest pain. No leg swelling. Related Data Home Medications ?Medication ?Instructions ?Recorded ?Confirmed methadone 10 mg/mL oral concentrate 130 mg PO DAILY 10/10/23 03/15/25 aripiprazole 5 mg tablet 5 mg PO DAILY 12/23/24 03/15/25 bupropion HCl 150 mg 24 hr tablet, 150 mg PO DAILY 12/23/24 03/15/25 extended release fluoxetine 40 mg capsule 40 mg PO DAILY depression 12/23/24 03/15/25 gabapentin 600 mg tablet 600 mg PO TID 12/23/24 03/15/25 losartan 50 mg tablet 50 mg PO DAILY 12/23/24 03/15/25 folic acid 1 mg tablet 1 mg PO DAILY 02/28/25 03/15/25 vitamin B complex 1 cap PO ONCE 02/28/25 03/15/25 hydroxyzine HCl 10 mg tablet 10 mg PO Q8H PRN 03/04/25 03/15/25 L. acidophilus,casei,rhamnosus 50 1 cap PO DAILY #10 caps 03/05/25 03/15/25 billion cell capsule,delayed release (Bio-K plus) guaifenesin 1,200 mg tablet, 1,200 mg PO BID #10 tabs 03/05/25 03/15/25 extended release 12 hr (Mucinex) ipratropium 0.5 mg-albuterol 3 mg 3 ml UPD Q6H PRN #90 mL 03/05/25 03/15/25 (2.5 mg base)/3 mL nebulization soln prednisone 20 mg tablet 20 mg PO DAILY #2 tabs 03/05/25 03/06/25 sulfamethoxazole 800 1 tab PO Q12H #20 tabs 03/05/25 03/15/25 mg-trimethoprim 160 mg tablet (Bactrim DS) doxycycline hyclate 100 mg tablet 100 mg PO BID #13 tabs 03/06/25 03/15/25 thiamine HCl (vitamin B1) 100 mg 100 mg PO DAILY 03/06/25 03/15/25 tablet budesonide 0.5 mg/2 mL suspension 0.5 mg (2 mL) inhalation BID #60 mL 03/15/25 03/15/25 for nebulization Previous Rx's ?Medication ?Instructions ?Recorded L. acidophilus,casei,rhamnosus 50 1 cap PO DAILY #10 caps 03/05/25 billion cell capsule,delayed release (Bio-K plus) guaifenesin 1,200 mg tablet, 1,200 mg PO BID #10 tabs 03/05/25 extended release 12 hr (Mucinex) ipratropium 0.5 mg-albuterol 3 mg 3 ml UPD Q6H PRN #90 mL 03/05/25 (2.5 mg base)/3 mL nebulization soln prednisone 20 mg tablet 20 mg PO DAILY #2 tabs 03/05/25 sulfamethoxazole 800 1 tab PO Q12H #20 tabs 03/05/25 mg-trimethoprim 160 mg tablet (Bactrim DS) doxycycline hyclate 100 mg tablet 100 mg PO BID #13 tabs 03/06/25 budesonide 0.5 mg/2 mL suspension 0.5 mg (2 mL) inhalation BID #60 mL 03/15/25 for nebulization Allergies Allergy/AdvReac Type Severity Reaction Status Date / Time No Known Allergies Allergy Verified 03/15/25 08:12 General Stated Complaint: SOB RAVEN: 2 Review of Systems All systems reviewed & are unremarkable except as noted in HPI and below Constitutional Constitutional: Denies fever(s) Exam Const General: cooperative Nutritional Appearance: average body habitus Orientation: alert and awake HENMT Mouth: moist mucous membranes Eyes Conjunctivae: normal conjunctivae Sclera: normal sclerae Neck Neck: trachea midline and supple Resp Effort & Inspection: labored and tachypneic Auscultation: rales and rhonchi Cardio Rate: regular rate and not tachycardic Rhythm: regular rhythm Heart Sounds: S1 normal, S2 normal and no murmurs GI Palpation: soft, not firm, no guarding, no masses, not rigid and nontender Skin General skin exam: no rashes or lesions noted Neuro General: patient alert, patient awake, patient oriented x3 and tone normal Extrem General: no calf tenderness and no edema Psych Appearance: grossly normal Mental Status: mental status grossly normal Course Vital Signs Vital signs: Vital Signs Temperature 35.8 C L 03/06/25 11:02 Pulse 83 03/06/25 11:02 Respiratory Rate 30 H 03/06/25 11:02 Blood Pressure 113/80 03/06/25 11:02 Pulse Oximetry 96 03/06/25 11:02 Temperature 35.8 C L 03/06/25 11:02 Temperature Source Tympanic 03/06/25 11:02 Pulse 83 03/06/25 11:02 Respiratory Rate 30 H 03/06/25 11:02 Blood Pressure 113/80 03/06/25 11:02 Blood Pressure Position Sitting 03/06/25 11:02 Pulse Oximetry 93 03/06/25 11:13 Oxygen Delivery Method OxyMask 03/06/25 11:13 Oxygen Flow Rate 4 03/06/25 11:13 Medical Decision Making 1131??44-year-old male with multiple medical problems including history of reactive airway disease versus pulmonary fibrosis, on home O2, polysubstance use disorder, opioid use disorder on methadone, hypertension, recently admitted for multifocal pneumonia discharged yesterday, unable to fill his prescription for albuterol nebs, prednisone and Augmentin, returns with acute respiratory failure, hypoxic in the field requiring neb treatments as well as Solu-Medrol and epinephrine IM. Patient now saturating in the low to mid 90s on supplemental oxygen 4 L by Ventimask. Patient is hemodynamically stable. I suspect his shortness of breath is related to multifocal pneumonia in the setting of chronic lung disease, medication noncompliance. Plan to check chest x-ray. Plan to continue supplemental oxygen and monitor. Consider arrhythmia. EKG was reviewed and interpreted by me: Sinus rhythm 78 bpm, nondiagnostic. 1300 --chest x-ray was reviewed and interpreted by radiology: Stable diffuse hazy bilateral airspace opacities. Labs reviewed and stable leukocytosis noted. Patient reassessed and states he is back to his usual, saturating well on baseline home O2. Plan to discharge with close outpatient follow-up with his primary care physician and pulmonology. Patient was prescribed Bactrim at time of discharge yesterday. I will add doxycycline given comorbidities. All results were discussed with the patient and his mother. They understand the importance of close outpatient follow-up and need to take all medications as prescribed. Lab Data Lab results reviewed: Yes I reviewed the patient's lab results. Labs: Laboratory Tests Range/Units 03/06/25 03/06/25 11:10 11:20 WBC (4.4-10.8) 10^3/uL 11.71 H RBC (4.36-5.78) 10^6/uL 4.55 Hgb (13.5-17.5) g/dL 13.5 Hct (40.0-50.0) % 40.8 MCV (80-95) fL 90 MCH (27.0-33.0) pg 29.7 MCHC (32.0-36.0) % 33.1 RDW (11.8-14.1) % 14.7 H Plt Count (130-400) 10^3/uL 393 D MPV (8.0-11.0) fL 8.4 Immature Gran % % 0.3 Neutrophils % % 55.2 Lymphocytes % % 27.6 Monocytes % % 8.8 Eosinophils % % 7.8 Basophils % % 0.3 Nucleated RBC % (0.0-0.3) % 0.0 Absolute Neutrophils (1.2-6.7) 10^3/uL 6.46 Absolute Lymphocytes (1.2-3.4) 10^3/uL 3.23 Absolute Monocytes (0.1-0.8) 10^3/uL 1.03 H Absolute Eosinophils (0.0-0.7) 10^3/uL 0.91 H Absolute Basophils (0.0-0.2) 10^3/uL 0.04 Sodium (136-145) mmol/L 138 Potassium (3.5-5.1) mmol/L 3.9 Chloride (98-107) mmol/L 97 L Carbon Dioxide (21.0-32.0) mmol/L 33.8 H Anion Gap (3-11) mmol/L 7.2 BUN (7-18) mg/dL 7 Creatinine (0.70-1.30) mg/dL 0.6 L Est GFR (CKD-EPI 2020) (mL/min/1.73m2) 121.32 Glucose (74-106) mg/dL 102 Calcium (8.5-10.1) mg/dL 9.5 Magnesium (1.8-2.4) mg/dL 2.0 Total Bilirubin (0.2-1.0) mg/dL 0.5 AST (15-37) U/L 20 ALT (16-63) U/L 14 L Alkaline Phosphatase (46-116) U/L 85 Troponin I (<or=76) ng/L 4 Total Protein (6.4-8.2) g/dL 8.0 Albumin (3.4-5.0) g/dL 3.4 COVID-19 Source Nasopharynx SARS-CoV-2 (PCR) (Negative) Negative Influenza Type A (PCR) (Negative) Negative Influenza Type B (PCR) (Negative) Negative RSV (PCR) (Negative) Negative Quality:SDOH Health Related Social Needs: Health related social needs housing instability, house d, with risk of homelessness (Z59.811), transportation insecurity (Z59.82), material hardship(utilities) (Z59.12), problems related to housing/economic circumstances (Z59.89), problems with daily activities (Z73.9), feeling lonely/isolated (Z60.8) Health related social needs details pt lives with aunt and uncle but not for long- feels like a burden and not able to live [facility] All Active Problems (Updated 03/15/25 @ 08:55 by SYL Sommer) Chronic hypercapnic respiratory failure (Acute) Chronic hypoxic respiratory failure (Acute) Drug-induced diffuse interstitial pulmonary fibrosis (Acute) ARDS/drug induced pulmonary fibrosis with [facility] admission 12/27/24-02/14/25 Hypoxia (Acute) Anxiety (Chronic) Acute respiratory failure with hypoxia and hypercarbia (Acute) Alcohol withdrawal (Acute) Multifocal pneumonia (Acute) Abdominal cramping (Acute) Ileus (Acute) Acute hypokalemia (Acute) HTN (hypertension) (Chronic) Suicide ideation (Acute) Polysubstance abuse (Chronic) Opioid use disorder (Acute) Nicotine dependence (Chronic) Opioid dependence on agonist therapy (Chronic) Alcohol dependence (Chronic) Medical History Gram-positive cocci bacteremia Acute and chronic respiratory failure with hypercapnia Bacteremia Weak Pancreatitis DVT (deep venous thrombosis) History of osteomyelitis Hepatitis B Hepatitis C Depression Polysubstance abuse Family History Other Alcohol use disorder Depression Social History (Updated 03/15/25 @ 08:34 by Lisa Romero RN) Smoking/Tobacco Use Status: Current every day Tobacco Type: cigarettes Tobacco: How many years used: 34 Smokeless tobacco user: chewing tobacco Smoking risk assessment performed?: Yes Alcohol Intake: current Alcohol Intake frequency: 0-2 drinks per day Alcohol type: hard liquor Drug use: Daily Substance use type: marijuana Details: Pt states he last used marijuana 10/23/24 Last used ETOH about 10/16/24 Housing: house Do you feel safe at home: Yes Do you feel safe in your relationship?: Yes
[2025-03-06 11:36] LABS: Abs Immature Grans 0.03 10^3/uL (0.0-0.06); Absolute Basophil Count 0.04 10^3/uL (0.0-0.2); Absolute Eosinophil Count 0.91 10^3/uL (0.0-0.7); Absolute Lymphocyte Count 3.23 10^3/uL (1.2-3.4); Absolute Monocyte Count 1.03 10^3/uL (0.1-0.8); Basophils % 0.3 %; Eosinophils % 7.8 %; HCT 40.8 % (40.0-50.0); HGB 13.5 g/dL (13.5-17.5); Immature Grans % 0.3 %; Lymphocytes % 27.6 %; MCH 29.7 pg (27.0-33.0); MCHC 33.1 % (32.0-36.0); MCV 90 fL (80-95); MPV 8.4 fL (8.0-11.0); Monocytes % 8.8 %; Neutrophils % 55.2 %; Platelet Count 393 10^3/uL (130-400); RBC 4.55 10^6/uL (4.36-5.78); RDW 14.7 % (11.8-14.1); WBC 11.71 10^3/uL (4.4-10.8)
[2025-03-06 11:37] LABS: Absolute Neutrophil Count 6.46 10^3/uL (1.2-6.7)
[2025-03-06 11:54] LABS: ALT 14 U/L (16-63); AST 20 U/L (15-37); Albumin 3.4 g/dL (3.4-5.0); Alkaline Phosphatase 85 U/L (46-116); Anion Gap 7.2 mmol/L (3-11); BUN 7 mg/dL (7-18); Bilirubin, Total 0.5 mg/dL (0.2-1.0); CO2 33.8 mmol/L (21.0-32.0); CREATININE 0.6 mg/dL (0.70-1.30); Calcium 9.5 mg/dL (8.5-10.1); Chloride 97 mmol/L (98-107); Estimated GFR 121.32 (mL/min/1.73m2); Glucose 102 mg/dL (74-106); Potassium 3.9 mmol/L (3.5-5.1); Sodium 138 mmol/L (136-145); Troponin I 4 ng/L (<or=76)
[2025-03-06 12:16] LABS: COVID-19 PCR Negative (Negative); Influenza A PCR Negative (Negative); Influenza B PCR Negative (Negative); RSV PCR Negative (Negative)
--- NOTE | 2025-03-06 12:22 | DI.VRAD_ITS ---
PROCEDURE INFORMATION: Exam: XR Chest Exam date and time: 03/06/2025 12:07 PM Age: 44 years old Clinical indication: Shortness of breath TECHNIQUE: Imaging protocol: Radiologic exam of the chest. Views: 2 views. COMPARISON: CR XR CHEST 2V PA LATERAL 02/28/2025 12:56 PM FINDINGS: Lungs: There is poor ventilation of the lungs, accounting for mild diffuse increase in pulmonary parenchymal density. Stable diffuse hazy bilateral airspace opacities. Pleural spaces: Unremarkable. No pleural effusion. No pneumothorax. Heart/Mediastinum: Unremarkable. No cardiomegaly. Bones/joints: Unremarkable. IMPRESSION: Stable diffuse hazy bilateral airspace opacities. Dictated and Authenticated by: Remigio Powell MD. Orderin Malvin Gonzalez MD
[2025-03-06 12:33] LABS: Source Nasopharynx
--- NOTE | 2025-03-06 13:30 | NUR.NOTE ---
Nursing Note: Patient was not able to hot die picker his prescriptions yesterday for his pneumonia (abx, steroids, nebulizer). Called Елена Anders in [facility] and spoke with pharmacist Ross. Ross confirmed his prescriptions are filled and ready to be picked up, they are open until 4pm. Mother at bedside and was asked if she can pick these up for the patient. Mother states she will pick them up but is requesting assistance with housing for this patient as he has been living with his Aunt who is very stressed out with an elderly disabled . [employer] paged and will come down to see patient and his mother prior to discharge.
[2025-03-06] MEDS: Methadone Liquid 10 MG/ML 130 MG PO (13:31)
--- NOTE | 2025-03-06 16:55 | NUR.NOTE ---
Patient called asking about a nebulizer. Thought he was to get one from [place]. In looking at discharge there was no mention of a nebulizer on discharge. Nursing Note:
--- NOTE | 2025-03-06 16:59 | NUR.NOTE ---
pt called with questions about his discharge and where to obtain a nebulizer machine. Nursing Note:
--- NOTE | 2025-03-07 10:00 | NUR.NOTE ---
Nursing Note: was in PT chart D/T [facility] clinic looking for information
== END 2025-03-06 15:50 | disposition home or self-care (01) ==
PROVIDERS: Emergency Provider Student in an Organized Health Care Education/Training Program; PCP Student in an Organized Health Care Education/Training Program
DX: J18.8 Other pneumonia, unspecified organism (principal); R09.02 Hypoxemia; F17.210 Nicotine dependence, cigarettes, uncomplicated; Z86.718 Personal history of other venous thrombosis and embolism; Z99.81 Dependence on supplemental oxygen
CPT/HCPCS: 36415; 80053; 87637; 93005; 99285; 71046; 83735; 84484; 85025; 93010; 99284

== ENCOUNTER 2025-03-22 03:19 | Outpatient (CLI) | payer MEDICAID, SELFPAY ==
[2025-03-22] MEDS: Inhaler, Assist Device 1 EACH MC (10:57)
[2025-03-22] MEDS: Levalbuterol HFA 15 GM INH 4 PUFF IH (10:57)
--- NOTE | 2025-04-03 14:42 | W.PFT ---
Date of service: 03/22/25 Time of Service: 10:01 Pulmonary Function Test Result Indications: Pneumonia Interpretation Spirometry: Restrictive spirometry. No bronchodilator response. Normal MIP, low MEP Lung Volumes: Refused Diffusion Capacity: Unable to perform Impression Restrictive spirometry with a normal MIP Clinical Correlation therefore is recommended.
== END 2025-03-22 03:20 | disposition home or self-care (01) ==
LOC: RT 03:19
PROVIDERS: PCP Student in an Organized Health Care Education/Training Program; Visit Provider Physician Assistant Surgical
DX: J70.4 Drug-induced interstitial lung disorders, unspecified (principal); J96.11 Chronic respiratory failure with hypoxia; J96.12 Chronic respiratory failure with hypercapnia; F19.10 Other psychoactive substance abuse, uncomplicated
CPT/HCPCS: 94060

== ENCOUNTER 2025-04-02 13:37 | Emergency (ER) | payer MEDICAID, SELFPAY ==
[2025-04-02] VITALS (55 sets, daily range): BP systolic 134–139; BP diastolic 85–94; PULSE 36–104; RESP 14–26; TEMP 37; O2SAT 90–98
--- NOTE | 2025-04-02 13:30 | RT.EKG_ITS ---
APPROVED REPORT Exam: Resting ECG Reason for Exam: sob Patient Location: E HR:78 bpm ECG Measurements Heart Rate 78 AXIS NE 142 P 19 QRSd 86 QRS -11 QT 393 T -5 QTc 450 Conclusion Sinus rhythm...normal P axis, V-rate 60- [address] elevation, lateral leads...ST >0.06mV, I aVL V5 V6 Physician: No STEMI
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
[2025-04-02] MEDS: methylPREDNISolone SUCC 125 MG VIAL IVP (14:47)
[2025-04-02 14:55] LABS: Lactate 1.7 mmol/L (<or=2.0)
[2025-04-02 14:56] LABS: Abs Immature Grans 0.03 10^3/uL (0.0-0.06); Absolute Basophil Count 0.04 10^3/uL (0.0-0.2); Absolute Eosinophil Count 0.42 10^3/uL (0.0-0.7); Absolute Lymphocyte Count 1.77 10^3/uL (1.2-3.4); Absolute Monocyte Count 0.69 10^3/uL (0.1-0.8); Absolute Neutrophil Count 6.56 10^3/uL (1.2-6.7); Basophils % 0.4 %; Eosinophils % 4.4 %; HCT 43.3 % (40.0-50.0); HGB 14.2 g/dL (13.5-17.5); Immature Grans % 0.3 %; Lymphocytes % 18.6 %; MCH 30.3 pg (27.0-33.0); MCHC 32.8 % (32.0-36.0); MCV 92 fL (80-95); MPV 8.4 fL (8.0-11.0); Monocytes % 7.3 %; Platelet Count 358 10^3/uL (130-400); RBC 4.69 10^6/uL (4.36-5.78); RDW 14.4 % (11.8-14.1); RDW-SD 48.7 fL; WBC 9.51 10^3/uL (4.4-10.8)
[2025-04-02 15:17] LABS: ALT 18 U/L (16-63); AST 24 U/L (15-37); Albumin 3.6 g/dL (3.4-5.0); Alkaline Phosphatase 91 U/L (46-116); Anion Gap 4.2 mmol/L (3-11); BUN 3 mg/dL (7-18); Bilirubin, Total 0.4 mg/dL (0.2-1.0); CO2 35.8 mmol/L (21.0-32.0); CREATININE 0.6 mg/dL (0.70-1.30); Calcium 9.3 mg/dL (8.5-10.1); Chloride 98 mmol/L (98-107); Estimated GFR 121.32 (mL/min/1.73m2); Glucose 64 mg/dL (74-106); Lipase 43 U/L (<78); Potassium 4.5 mmol/L (3.5-5.1); Sodium 138 mmol/L (136-145); Total Protein 8.1 g/dL (6.4-8.2)
[2025-04-02 15:17] LABS: COVID-19 PCR Negative (Negative); Influenza A PCR Negative (Negative); Influenza B PCR Negative (Negative); RSV PCR Negative (Negative)
[2025-04-02 15:20] LABS: Magnesium 2.1 mg/dL (1.8-2.4); Troponin I 4 ng/L (<or=76)
[2025-04-02 15:21] LABS: Source Nasopharynx
[2025-04-02] MEDS: Albuterol/Ipratropium 3 ML UPD VIAL 9 ML UPD (15:24)
[2025-04-02] MEDS: Normal Saline - Diluent 50 ML VIAL IJ (15:42)
[2025-04-02] MEDS: Omnipaque 350 MG/ML 100 ML BTL IJ (15:43)
--- NOTE | 2025-04-02 15:45 | DI.CT_ITS ---
Exam(s) CT CHEST PE CTA EXAM: CT CHEST PE CTA CLINICAL HISTORY: SOB, occ CP, h/o DVT. TECHNIQUE: Imaging Protocol: Axial CT angiography was performed with multi- slice acquisition and multi-planar and/or 3D reconstructions. Lung Computer Aided Detection (CAD) was utilized. CONTRAST MATERIAL: Intravenous: Omnipaque 350 contrast volume:75 mL COMPARISON: CT CT CHEST W from 08/13/[address] CHEST PE CTA from 12/25/2024 CR,XR XR CHEST 2V PA LATERAL from 03/06/2025 FINDINGS: Tracheobronchial tree: Patent where visualized. There are bronchiectatic changes particularly in the upper lobes bilaterally. Pulmonary parenchyma: Dependent atelectatic changes are seen in the lung bases. There are diffuse interstitial fibrotic changes seen in the lungs particularly in the upper lobes. These findings have significantly progressed since examination from 08/13/2021. Ground-glass opacities are present in the lungs bilaterally. These have significantly improved since 12/25/2024 however. Pulmonary Arteries: No evidence of filling defect to suggest pulmonary emboli. Mediastinum and Debby: No dominant adenopathy or fluid collection. The esophagus is unremarkable. Visualized thyroid gland: Unremarkable. Pleura: No effusion or pneumothorax. Heart: Mild cardiomegaly. No coronary artery calcifications are seen. No pericardial effusion. Aorta: Thoracic aorta non-dilated. No evidence of dissection. Mild atherosclerotic calcification is present. Upper abdomen: Unremarkable. Soft tissues: Unremarkable. Bones: Within normal limits for the patient's age. IMPRESSION: 1. No evidence of pulmonary embolism, thoracic aortic dissection or aneurysm. 2. Ground-glass pulmonary opacities bilaterally. These findings have improved since 12/25/2024. Pneumonia should be considered. 3. Underlying pulmonary fibrosis and bronchiectasis. 4. The preliminary [facility] report was reviewed. RADIATION DOSE DELIVERED: 91.65mGy.cm Total DLP DATA REPOSITORY: All CT scans at this facility are submitted to the National Radiology Data Registry (NRDR) Dose Index Registry (DIR) with the [employer] (ACR). RADIATION OPTIMIZATION: All CT scans at this facility use at least one of these dose optimization techniques: automated exposure control; mA and/or kV adjustment per patient size (includes targeted exams where dose is matched to clinical indication); or iterative reconstruction.
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
--- NOTE | 2025-04-02 16:31 | DI.[facility]_ITS ---
PROCEDURE INFORMATION: Exam: CTA Chest With Contrast Exam date and time: 04/02/2025 3:57 PM Age: 44 years old Clinical indication: Other: SOB, occ cp, h/o dvt TECHNIQUE: Imaging protocol: Computed tomographic angiography of the chest with contrast. Exam focused on the arteries. 3D rendering (Not supervised by radiologist): MIP and/or 3D reconstructed images were created by the technologist. Contrast material: 350; Contrast volume: 75 ml; Contrast route: INTRAVENOUS (IV); COMPARISON: CT CHEST PE CTA 12/25/2024 9:47 AM FINDINGS: Pulmonary arteries: No evidence of pulmonary embolus to the segmental level. Aorta: No aneurysm of the aorta. No dissection of the aorta. Lungs: Patchy bilateral ground-glass opacities may represent multifocal pneumonia.. Bronchiectasis in the lingula and right middle lobe and both lower lobes. Pleural spaces: Unremarkable. No pneumothorax. No pleural effusion. Heart: Unremarkable. No cardiomegaly. No pericardial effusion. Lymph nodes: Unremarkable. No enlarged lymph nodes. Bones/joints: Unremarkable. No acute fracture. Soft tissues: Unremarkable. IMPRESSION: 1. No evidence of pulmonary embolus to the segmental level. 2. Patchy bilateral ground-glass opacities may represent multifocal pneumonia.. 3. Bronchiectasis in the lingula and right middle lobe and both lower lobes. Dictated and Authenticated by: Ayana Holley MD. Orderin Rajeev Douglas MD
[2025-04-02 17:03] LABS: BE (Venous) 9 mmol/L (-2-3); HCO3 (Venous) 34 mmol/L (23-28); O2 Sat (Venous) 77 %; TCO2 (Venous) 31 mmol/L (24-29); pCO2 (Venous) 59 mmHg (41-51); pH (Venous) 7.37 (7.31-7.41); pO2 (Venous) 44 mmHg
[2025-04-02 17:41] LABS: Procalcitonin < 0.10 ng/mL
== END 2025-04-02 18:34 | disposition home or self-care (01) ==
PROVIDERS: Physician Assistant; Emergency Provider Nurse Practitioner Family; PCP Student in an Organized Health Care Education/Training Program
DX: R06.02 Shortness of breath (principal); R94.31 Abnormal electrocardiogram [ECG] [EKG]; J84.10 Pulmonary fibrosis, unspecified; F17.210 Nicotine dependence, cigarettes, uncomplicated; Z86.718 Personal history of other venous thrombosis and embolism; Z99.81 Dependence on supplemental oxygen
CPT/HCPCS: 36415; 71275; 80053; 82805; 83690; 84145; 87637; 93005; 94640; 96374; 99285; 83605; 83735; 84484; 85025; 93010; J2919; J3490; J7620

== ENCOUNTER 2025-04-15 16:25 | Emergency (ER) | payer MEDICAID, SELFPAY ==
[2025-04-15] VITALS (19 sets, daily range): BP systolic 119–141; BP diastolic 80–101; PULSE 74–88; RESP 16–33; TEMP 36.6; O2SAT 91–98
--- NOTE | 2025-04-15 16:15 | RT.EKG_ITS ---
APPROVED REPORT Exam: Resting ECG Reason for Exam: dyspnea Patient Location: E HR:83 bpm ECG Measurements Heart Rate 83 AXIS GA 122 P -17 QRSd 86 QRS -7 QT 474 T 8 QTc 539 Conclusion Sinus rhythm...normal P axis, V-rate 60- 99 Left ventricular hypertrophy...multiple voltage criteria Inferior infarct, old...Q >35mS, II III aVF Borderline ST elevation, lateral leads...ST >0.06mV, I aVL V5 V6 Prolonged QT interval...QTc >500mS I have reviewed and interpreted ECG and agree with software generated interpretation.
--- NOTE | 2025-04-15 16:45 | DI.RAD_ITS ---
Exam(s) XR CHEST 2V PA LATERAL EXAM: XR CHEST 2V PA LATERAL CLINICAL HISTORY: SOB. TECHNIQUE: 2D digital imaging was performed. COMPARISON: Prior chest x-ray 03/06/2025 FINDINGS: 2 views: Heart size is upper normal. The mediastinum is not widened. There is no radiographic improvement in the extensive bilateral pulmonary infiltrates. There are no obvious pleural effusions. No pneumothorax. IMPRESSION: Persistent bilateral lung infiltrates again noted without radiographic improvement when compared to 03/06/2025 DATA REPOSITORY: RADIATION DOSE DELIVERED:
--- NOTE | 2025-04-15 17:54 | ED.GENADUL_ITS ---
Discharge Plan Disposition Patient Disposition: Home Condition: Stable Discharge Details Clinical Impression: Pulmonary fibrosis, Chronic hypercapnic respiratory failure Primary Care Provider: Renny Rollins ED Provider: Heidy Farmer Home Meds and New Rx's Prescriptions: New prednisone 20 mg tablet 20 mg PO DAILY 9 Days Qty: 18 0RF Rx Instructions: Take one tab TID x 3 days, Take 1 tabs BID daily x 3 days, Take 1 tab one time daily x 3 days. doxycycline hyclate 100 mg tablet 100 mg PO BID 5 Days Qty: 10 0RF Continued budesonide 0.5 mg/2 mL suspension for nebulization 0.5 mg inhalation BID Qty: 60 12RF methadone 10 mg/mL concentrate 130 mg PO DAILY Patient Comments: @ [facility], verified last dose 12/23/24 for 130 mg thiamine HCl (vitamin B1) 100 mg tablet 100 mg PO DAILY Patient Comments: TAKE ONE TABLET BY MOUTH DAILY fluoxetine 40 mg capsule 40 mg PO DAILY Patient Comments: TAKE ONE CAPSULE BY MOUTH EVERY MORNING gabapentin 600 mg tablet 600 mg PO TID Patient Comments: TAKE ONE TABLET BY MOUTH THREE TIMES A DAY DIRECTED losartan 50 mg tablet 50 mg PO DAILY Patient Comments: TAKE ONE TABLET BY MOUTH EVERY MORNING, FOR HIGH BLOOD PRESSURE aripiprazole 5 mg tablet 5 mg PO DAILY Patient Comments: TAKE ONE TABLET BY MOUTH EVERY DAY bupropion HCl 150 mg tablet extended release 24 hr 150 mg PO DAILY Patient Comments: TAKE ONE TABLET BY MOUTH EVERY DAY vitamin B complex Capsule 1 cap PO ONCE Patient Comments: TAKE ONE CAPSULE BY MOUTH EVERY MORNING folic acid 1 mg tablet 1 mg PO DAILY Patient Comments: TAKE ONE TABLET BY MOUTH EVERY DAY hydroxyzine HCl 10 mg tablet 10 mg PO Q8H PRN Patient Comments: TAKE ONE TABLET BY MOUTH EVERY 8 HOURS NEEDED FOR ANXIETY Bio-K plus 50 billion cell capsule,delayed release(DR/EC) 1 cap PO DAILY Qty: 10 0RF guaifenesin [Mucinex] 1,200 mg tablet extended release 12hr 1,200 mg PO BID Qty: 10 0RF ipratropium-albuterol 0.5 mg-3 mg(2.5 mg base)/3 mL Solution For Nebulization 3 ml UPD Q6H PRNQty: 90 0RF Patient Comments: hasn't started yet bupropion HCl 300 mg tablet extended release 24 hr 300 mg PO DAILY Patient Comments: TAKE ONE TABLET BY MOUTH EVERY DAY IN THE MORNING FOR ANXIETY/DEPRESSION Discharge Instructions Instructions: Interstitial lung disease, Pulmonary rehabilitation Additional Instructions: Please continue to take your oxygen and use your oxygen as previously prescribed. Please wear only 4 L while at rest. You were given a dose of prednisone while here in the department. You were given 3 tablets to go home with. Please start that in the morning. Take 1 tablet 3 times daily, 1 in the morning 1 at noon and 1 in the evening for the first day. After that you may use the prednisone as prescribed. I am also giving you an additional 5 days of antibiotic. Follow up with primary care provider in 3-5 days. Return to ED sooner if any worsening or concerns. Please follow-up closely with your pulmonology clinic. You may call them on Friday to get a sooner appointment if needed. Please continue to take your previously prescribed medications. Referrals: Renny Rollins [Primary Care Provider, Medicine] HPI General Mode of arrival: ambulatory . Date/Time Provider Initiated Documentation: 04/15/25 16:43 . Limitations to Documentation: no limitations . Information obtained by: patient, RN notes reviewed and old records reviewed . HPI Narrative: 44-year-old male presents to the ER with a chief complaint of shortness of breath which is worsened after being out of his prednisone yesterday. He was on approximately 20 mg 3 times daily for the last 10 days. Recently diagnosed with pulmonary fibrosis. He also endorses runny nose and URI type symptoms. Patient presents with 8 L of nasal cannula satting approximately 91% with ambulation and exertion. He does report that his shortness of breath gets worse with exertion. Patient does have a history of former IV drug user, hypertension, does take methadone, bacteremia DVT hepatitis B C depression osteomyelitis pancreatitis. He denies any chest pain denies any fever chills. He is afebrile upon arrival and speaking in full sentences. Related Data Home Medications ?Medication ?Instructions ?Recorded ?Confirmed methadone 10 mg/mL oral concentrate 130 mg PO DAILY 04/15/25 aripiprazole 5 mg tablet 5 mg PO DAILY 12/23/2404/15 bupropion HCl 150 mg 24 hr tablet, 150 mg PO DAILY 04/15/25 extended release fluoxetine 40 mg capsule 40 mg PO DAILY depression 04/15/25 gabapentin 600 mg tablet 600 mg PO TID 12/23/2404/15 losartan 50 mg tablet 50 mg PO DAILY 12/23/2402/04 folic acid 1 mg tablet 1 mg PO DAILY 02/28/2504/15 vitamin B complex 1 cap PO ONCE 02/28/2504/15 hydroxyzine HCl 10 mg tablet 10 mg PO Q8H PRN 03/04/25 04/15/25 L. acidophilus,casei,rhamnosus 50 1 cap PO DAILY #10 c aps 03/05/25 04/15/25 billion cell capsule,delayed release (Bio-K plus) guaifenesin 1,200 mg tablet, 1,200 mg PO BID #10 tabs 03/05/25 04/15/25 extended release 12 hr (Mucinex) ipratropium 0.5 mg-albuterol 3 mg 3 ml UPD Q6H PRN #90 mL 03/05/25 04/15/25 (2.5 mg base)/3 mL nebulization soln thiamine HCl (vitamin B1) 100 mg 100 mg PO DAILY 03/0604/15/25 tablet budesonide 0.5 mg/2 mL suspension 0.5 mg (2 mL) inhala tion BID #60 mL 03/15/25 04/15/25 for nebulization bupropion HCl 300 mg 24 hr tablet, 300 mg PO DAILY 04/15/25 extended release doxycycline hyclate 100 mg tablet 100 mg PO BID 5 days #10 tabs 04/15/25 prednisone 20 mg tablet 20 mg PO DAILY Pulmonary Fib rosis 04/15/25 9 days #18 tabs Previous Rx's ?Medication ?Instructions ?Recorded L. acidophilus,casei,rhamnosus 50 1 cap PO DAILY #10 c aps 03/05/25 billion cell capsule,delayed release (Bio-K plus) guaifenesin 1,200 mg tablet, 1,200 mg PO BID #10 tabs 03/05/25 extended release 12 hr (Mucinex) ipratropium 0.5 mg-albuterol 3 mg 3 ml UPD Q6H PRN #90 mL 03/05/25 (2.5 mg base)/3 mL nebulization soln budesonide 0.5 mg/2 mL suspension 0.5 mg (2 mL) inhala tion BID #60 mL 03/15/25 for nebulization doxycycline hyclate 100 mg tablet 100 mg PO BID 5 days #10 tabs 04/15/25 prednisone 20 mg tablet 20 mg PO DAILY Pulmonary Fib rosis 04/15/25 9 days #18 tabs Allergies Allergy/AdvReac Type Severity Reaction Status Date / Time No Known Allergies Allergy Verified 04/02/25 13:46 General Stated Complaint: RespSymp RAVEN: 3 Exam Narrative Exam Narrative: Constitutional: Alert and oriented x3. Appears stated age. Normal body habitus. Head: Normocephalic, no trauma. Eyes: Pupils PERRL, Red reflex noted, EOM's intact. Eyelids symmetrical without lesions, discharge, or swelling. ENT: Bilateral TM's WNL, External ear normal to inspection, no mastoid TTP, swelling, or erythema, Nasal turbinates WNL, no nasal discharge. Normal dentition, Posterior pharynx WNL, no exudate. Chest: RRR, Normal S1, S2, distal pulses intact. Resp: Lungs diminished to auscultation bilaterally, no wheezes, rales, or rhonchi. Abdomen: Soft, non-distended, Normoactive bowel sounds all 4 quads. Musculoskeletal: Unable to assess gait, moves all 4 extremities without difficulty. Skin: Old IVDA scars, no new track lee other than previous ER visit lee to his left dorsal hand. Capillary refill less than 2 sec. Neurologic: Cranial nerves II-XII intact. Alert and oriented x 3. Motor: No deficits noted. Sensory: Intact bilaterally all 4 extremities. Hematologic/Lymphatic: No ecchymosis, no lymphadenopathy. Course Vital Signs Vital signs: Vital Signs Temperature 36.6 C 04/15/25 16:28 Pulse 81 04/15/25 16:28 Respiratory Rate 16 04/15/25 16:28 Blood Pressure 127/80 04/15/25 16:28 Pulse Oximetry 91 L 04/15/25 16:28 Temperature 36.6 C 04/15/25 16:31 Temperature Source Oral 04/15/25 16:31 Pulse 81 04/15/25 16:31 Respiratory Rate 16 04/15/25 16:31 Blood Pressure 127/80 04/15/25 16:31 Pulse Oximetry 91 L 04/15/25 16:31 Oxygen Delivery Method Nasal Cannula 04/15/25 16:31 Oxygen Flow Rate 8 04/15/25 16:31 Pain Level 8 04/15/25 16:31 Medical Decision Making 44-year-old male presents to the ER with a chief complaint of shortness of breath which is worsened after being out of his prednisone yesterday. He was on approximately 20 mg 3 times daily for the last 10 days. Recently diagnosed with pulmonary fibrosis. He also endorses runny nose and URI type symptoms. Patient presents with 8 L of nasal cannula satting approximately 91% with ambulation and exertion. He does report that his shortness of breath gets worse with exertion. Patient does have a history of former IV drug user, hypertension, does take methadone, bacteremia DVT hepatitis B C depression osteomyelitis pancreatitis. He denies any chest pain denies any fever chills. He is afebrile upon arrival and speaking in full sentences. Of note patient does report that he has been having some muscle spasms which he attributes to the prednisone. Workup ordered including CBC CMP Fluvid chest x-ray VBG. Decreased from 7L to 4 L in the room, patient is satting 96% 95% at rest. Differential diagnosis includes but not limited to viral illness, pneumonia, pulmonary fibrosis exacerbation, electrolyte abnormality, hypercapnic respiratory failure. See labs below, no electrolyte disturbance, does have some leukocytosis with a white blood cell count of 15.49 absolute neutrophils 12.10, VBG shows hypercapnia however it is improved from his previous VBG's. Sodium 138 potassiu m 4.2, calcium 9.2 glucose 107 carbon dioxide is 32.3. Which is down from 35.8 a couple weeks ago. Chest x-ray shows no improvement from the infiltrates from 03/06, no pleural effusions visualized, however on my evaluation of the previous x-ray the infiltrates do appear somewhat smaller and the lung santamaria appear somewhat clear. On patient reevaluation he reports feeling much better O2 sat is maintained 95 to 96% while at rest. I did discuss a prednisone taper and his white blood cell count, he was recently on 7 days of doxycycline. I will put him on 5 more days of doxycycline to extend cover for possible pneumonia. Discussed plan of care follow-up care and strict return instructions he verbalizes understanding. Patient was discharged in the care of his family. All their questions were answered to the best of my ability. This text was generated using Nuance dictation system, please disregard any oddities of phrase or misspellings. Medical Records Medical records reviewed: Yes I reviewed the patient's medical records. Lab Data Lab results reviewed: Yes I reviewed the patient's lab results. Labs: Laboratory Tests Range/Units 04/15/25 17:50 WBC (4.4-10.8) 10^3/uL 15.49 H RBC (4.36-5.78) 10^6/uL 4.97 Hgb (13.5-17.5) g/dL 15.1 Hct (40.0-50.0) % 46.7 MCV (80-95) fL 94 MCH (27.0-33.0) pg 30.4 MCHC (32.0-36.0) % 32.3 RDW (11.8-14.1) % 14.5 H Plt Count (130-400) 10^3/uL 327 MPV (8.0-11.0) fL 8.3 Immature Gran % % 0.5 Neutrophils % % 78.1 Lymphocytes % % 12.6 Monocytes % % 7.6 Eosinophils % % 0.9 Basophils % % 0.3 Nucleated RBC % (0.0-0.3) % 0.0 Absolute Neutrophils (1.2-6.7) 10^3/uL 12.10 H Absolute Lymphocytes (1.2-3.4) 10^3/uL 1.95 Absolute Monocytes (0.1-0.8) 10^3/uL 1.18 H Absolute Eosinophils (0.0-0.7) 10^3/uL 0.14 Absolute Basophils (0.0-0.2) 10^3/uL 0.05 VBG pH (7.31-7.41) 7.36 VBG pCO2 (41-51) mmHg 58 H VBG pO2 mmHg 50 VBG HCO3 (23-28) mmol/L 33 H VBG Total CO2 (24-29) mmol/L 29 VBG O2 Saturation % 83 VBG Base Excess (-2-3) mmol/L 7 H Sodium (136-145) mmol/L 138 Potassium (3.5-5.1) mmol/L 4.2 Chloride (98-107) mmol/L 98 Carbon Dioxide (21.0-32.0) mmol/L 32.3 H Anion Gap (3-11) mmol/L 7.7 BUN (7-18) mg/dL 6 L Creatinine (0.70-1.30) mg/dL 0.7 Est GFR (CKD-EPI 2020) (mL/min/1.73m2) 115.80 Glucose (74-106) mg/dL 107 H Calcium (8.5-10.1) mg/dL 9.2 Total Bilirubin (0.2-1.0) mg/dL 0.2 AST (15-37) U/L 20 ALT (16-63) U/L 19 Alkaline Phosphatase (46-116) U/L 105 Total Protein (6.4-8.2) g/dL 7.7 Albumin (3.4-5.0) g/dL 3.5 COVID-19 Source Nasopharynx SARS-CoV-2 (PCR) (Negative) Negative Influenza Type A (PCR) (Negative) Negative Influenza Type B (PCR) (Negative) Negative RSV (PCR) (Negative) Negative Quality:SDOH Health Related Social Needs: Health related social needs risk of homeless transpo i nsecurity material hardship house/econ circumstance daily activities lonely/isolated Health related social needs details pt lives with aunt and uncle but not for long- feels like a burden and not able to live on own [facility] All Active Problems (Updated 04/15/25 @ 19:34 by Heidy Farmer NP) Pulmonary fibrosis (Acute) Shortness of breath (Acute) Chronic hypercapnic respiratory failure (Acute) Chronic hypoxic respiratory failure (Acute) Drug-induced diffuse interstitial pulmonary fibrosis (Acute) ARDS/drug induced pulmonary fibrosis with [facility] [place] admission 12/27/24-02/14/25 Anxiety (Chronic) Acute respiratory failure with hypoxia and hypercarbia (Acute) Alcohol withdrawal (Acute) Multifocal pneumonia (Acute) Abdominal cramping (Acute) Ileus (Acute) Acute hypokalemia (Acute) HTN (hypertension) (Chronic) Suicide ideation (Acute) Polysubstance abuse (Chronic) Opioid use disorder (Acute) Nicotine dependence (Chronic) Opioid dependence on agonist therapy (Chronic) Alcohol dependence (Chronic) Medical History Gram-positive cocci bacteremia Acute and chronic respiratory failure with hypercapnia Bacteremia Weak Pancreatitis DVT (deep venous thrombosis) History of osteomyelitis Hepatitis B Hepatitis C Depression Polysubstance abuse Family History Other Alcohol use disorder Depression Social History (Updated 03/15/25 @ 08:34 by Lisa Romero RN) Smoking/Tobacco Use Status: Current every day Tobacco Type: cigarettes Tobacco: How many years used: 34 Smokeless tobacco user: chewing tobacco Smoking risk assessment performed?: Yes Alcohol Intake: current Alcohol Intake frequency: 0-2 drinks per day Alcohol type: hard liquor Drug use: Daily Substance use type: marijuana Details: Pt states he last used marijuana 10/23/24 Last used ETOH about 10/16/24 Housing: house Do you feel safe at home: Yes Do you feel safe in your relationship?: Yes
[2025-04-15] MEDS: predniSONE 20 MG TAB PO (17:57)
[2025-04-15 18:00] LABS: Abs Immature Grans 0.07 10^3/uL (0.0-0.06); HCT 46.7 % (40.0-50.0); HGB 15.1 g/dL (13.5-17.5); Immature Grans % 0.5 %; MCH 30.4 pg (27.0-33.0); MCHC 32.3 % (32.0-36.0); MCV 94 fL (80-95); MPV 8.3 fL (8.0-11.0); Platelet Count 327 10^3/uL (130-400); RBC 4.97 10^6/uL (4.36-5.78); RDW 14.5 % (11.8-14.1); RDW-SD 49.9 fL; WBC 15.49 10^3/uL (4.4-10.8)
[2025-04-15 18:02] LABS: BE (Venous) 7 mmol/L (-2-3); HCO3 (Venous) 33 mmol/L (23-28); O2 Sat (Venous) 83 %; TCO2 (Venous) 29 mmol/L (24-29); pCO2 (Venous) 58 mmHg (41-51); pO2 (Venous) 50 mmHg
[2025-04-15 18:22] LABS: ALT 19 U/L (16-63); AST 20 U/L (15-37); Albumin 3.5 g/dL (3.4-5.0); Alkaline Phosphatase 105 U/L (46-116); Anion Gap 7.7 mmol/L (3-11); BUN 6 mg/dL (7-18); Bilirubin, Total 0.2 mg/dL (0.2-1.0); CO2 32.3 mmol/L (21.0-32.0); Calcium 9.2 mg/dL (8.5-10.1); Chloride 98 mmol/L (98-107); Estimated GFR 115.80 (mL/min/1.73m2); Glucose 107 mg/dL (74-106); Potassium 4.2 mmol/L (3.5-5.1); Sodium 138 mmol/L (136-145); Total Protein 7.7 g/dL (6.4-8.2)
[2025-04-15 18:42] LABS: COVID-19 PCR Negative (Negative); RSV PCR Negative (Negative)
[2025-04-15] MEDS: predniSONE 20 MG TAB 60 MG PO (19:53)
== END 2025-04-15 20:00 | disposition home or self-care (01) ==
PROVIDERS: Emergency Provider Registered Nurse Emergency; PCP Student in an Organized Health Care Education/Training Program
DX: J84.10 Pulmonary fibrosis, unspecified (principal); J96.12 Chronic respiratory failure with hypercapnia; Z87.898 Personal history of other specified conditions; Z99.81 Dependence on supplemental oxygen; Z59.01 Sheltered homelessness; Z59.82 Transportation insecurity; Z59.811 Housing instability, housed, with risk of homelessness
CPT/HCPCS: 99284 ×2; 80053; 82805; 87637; 93005; 71046; 85025; 93010; J7512

== ENCOUNTER 2025-04-20 11:26 | Inpatient (IN) | payer MEDICAID, SELFPAY ==
[2025-04-20] VITALS (60 sets, daily range): BP systolic 101–145; BP diastolic 65–115; PULSE 66–138; RESP 12–47; TEMP 36.6–36.8; O2SAT 78–98
--- NOTE | 2025-04-20 11:30 | DI.RAD_ITS ---
Exam(s) XR PORTABLE CHEST AP EXAM: XR PORTABLE CHEST AP CLINICAL HISTORY: SOB TECHNIQUE: 2D digital imaging was performed. COMPARISON: CT CT CHEST PE CTA from 04/02/2025 CR XR CHEST 2V PA LATERAL from 04/15/2025 FINDINGS: LUNGS: The right diaphragm is elevated. There are severe, diffuse bilateral pulmonary infiltrates with significant progression when compared to the previous exam. no pleural abnormality seen. HEART: Normal size. AORTA: Normal diameter. BONES: Unremarkable for age. Soft tissues: Unremarkable. IMPRESSION: Severe bilateral pulmonary infiltrates with significant worsening when compared with the previous exam. DATA REPOSITORY: RADIATION DOSE DELIVERED:
[2025-04-20] MEDS: Albuterol/Ipratropium 3 ML UPD VIAL 6 ML UPD (11:36)
--- NOTE | 2025-04-20 11:36 | W.ED.GENAD ---
Discharge Plan Disposition Patient Disposition: Admit to [facility] Condition: Poor Discharge Details Clinical Impression: Acute respiratory failure with hypoxia and hypercarbia, Anxiety, Shortness of breath, Pulmonary fibrosis, Multifocal pneumonia Primary Care Provider: Renny Rollins ED Provider: Macie Talley Home Meds and New Rx's Prescriptions: No Action budesonide 0.5 mg/2 mL suspension for nebulization 0.5 mg inhalation BID Qty: 60 12RF methadone 10 mg/mL concentrate 130 mg PO DAILY Patient Comments: @ [facility], verified last dose 12/23/24 for 130 mg thiamine HCl (vitamin B1) 100 mg tablet 100 mg PO DAILY Patient Comments: TAKE ONE TABLET BY MOUTH DAILY fluoxetine 40 mg capsule 40 mg PO DAILY Patient Comments: TAKE ONE CAPSULE BY MOUTH EVERY MORNING gabapentin 600 mg tablet 600 mg PO TID Patient Comments: TAKE ONE TABLET BY MOUTH THREE TIMES A DAY DIRECTED losartan 50 mg tablet 50 mg PO DAILY Patient Comments: TAKE ONE TABLET BY MOUTH EVERY MORNING, FOR HIGH BLOOD PRESSURE aripiprazole 5 mg tablet 5 mg PO DAILY Patient Comments: TAKE ONE TABLET BY MOUTH EVERY DAY bupropion HCl 150 mg tablet extended release 24 hr 150 mg PO DAILY Patient Comments: TAKE ONE TABLET BY MOUTH EVERY DAY vitamin B complex Capsule 1 cap PO ONCE Patient Comments: TAKE ONE CAPSULE BY MOUTH EVERY MORNING folic acid 1 mg tablet 1 mg PO DAILY Patient Comments: TAKE ONE TABLET BY MOUTH EVERY DAY hydroxyzine HCl 10 mg tablet 10 mg PO Q8H PRN Patient Comments: TAKE ONE TABLET BY MOUTH EVERY 8 HOURS NEEDED FOR ANXIETY Bio-K plus 50 billion cell capsule,delayed release(DR/EC) 1 cap PO DAILY Qty: 10 0RF guaifenesin [Mucinex] 1,200 mg tablet extended release 12hr 1,200 mg PO BID Qty: 10 0RF ipratropium-albuterol 0.5 mg-3 mg(2.5 mg base)/3 mL Solution For Nebulization 3 ml UPD Q6H PRNQty: 90 0RF Patient Comments: hasn't started yet bupropion HCl 300 mg tablet extended release 24 hr 300 mg PO DAILY Patient Comments: TAKE ONE TABLET BY MOUTH EVERY DAY IN THE MORNING FOR ANXIETY/DEPRESSION prednisone 20 mg tablet 20 mg PO DAILY 9 Days Qty: 18 0RF Rx Instructions: Take one tab TID x 3 days, Take 1 tabs BID daily x 3 days, Take 1 tab one time daily x 3 days. HPI General Date/Time Provider Initiated Documentation: 04/20/25 11:30. Limitations to Documentation: no limitations. Information obtained by: patient, RN notes reviewed and old records reviewed. History of Present Illness 44 year old M presents to the emergency department with the chief complaint of shortness of breath, described as severe and similar to prior episodes, Quality is described as other (SOB, tight), Patient started experiencing this hour(s) and it has been constant. No relieving factors improve symptom(s), Movement worsens symptoms . Patient notes chest pain (the tightness- no real pain), malaise and shortness of breath; denies cough (unchanged from baseline), fever/chills, loss of appetite, nausea/vomiting and syncope. Patient did receive the following treatments prior to arrival, none Related Data Home Medications ?Medication ?Instructions ?Recorded ?Confirmed methadone 10 mg/mL oral concentrate 130 mg PO DAILY 10/10/23 04/20/25 aripiprazole 5 mg tablet 5 mg PO DAILY 12/23/24 04/20/25 bupropion HCl 150 mg 24 hr tablet, 150 mg PO DAILY 12/23/24 04/20/25 extended release fluoxetine 40 mg capsule 40 mg PO DAILY depression 12/23/24 04/20/25 gabapentin 600 mg tablet 600 mg PO TID 12/23/24 04/20/25 losartan 50 mg tablet 50 mg PO DAILY 12/23/24 04/20/25 folic acid 1 mg tablet 1 mg PO DAILY 02/28/25 04/20/25 vitamin B complex 1 cap PO ONCE 02/28/25 04/20/25 hydroxyzine HCl 10 mg tablet 10 mg PO Q8H PRN 03/04/25 04/20/25 L. acidophilus,casei,rhamnosus 50 1 cap PO DAILY #10 caps 03/05/25 04/20/25 billion cell capsule,delayed release (Bio-K plus) guaifenesin 1,200 mg tablet, 1,200 mg PO BID #10 tabs 03/05/25 04/20/25 extended release 12 hr (Mucinex) ipratropium 0.5 mg-albuterol 3 mg 3 ml UPD Q6H PRN #90 mL 03/05/25 04/20/25 (2.5 mg base)/3 mL nebulization soln thiamine HCl (vitamin B1) 100 mg 100 mg PO DAILY 03/06/25 04/20/25 tablet budesonide 0.5 mg/2 mL suspension 0.5 mg (2 mL) inhalation BID #60 mL 03/15/25 04/20/25 for nebulization bupropion HCl 300 mg 24 hr tablet, 300 mg PO DAILY 04/02/25 04/20/25 extended release prednisone 20 mg tablet 20 mg PO DAILY Pulmonary Fibrosis 04/15/25 04/20/25 9 days #18 tabs Previous Rx's ?Medication ?Instructions ?Recorded L. acidophilus,casei,rhamnosus 50 1 cap PO DAILY #10 caps 03/05/25 billion cell capsule,delayed release (Bio-K plus) guaifenesin 1,200 mg tablet, 1,200 mg PO BID #10 tabs 03/05/25 extended release 12 hr (Mucinex) ipratropium 0.5 mg-albuterol 3 mg 3 ml UPD Q6H PRN #90 mL 03/05/25 (2.5 mg base)/3 mL nebulization soln budesonide 0.5 mg/2 mL suspension 0.5 mg (2 mL) inhalation BID #60 mL 03/15/25 for nebulization prednisone 20 mg tablet 20 mg PO DAILY Pulmonary Fibrosis 04/15/25 9 days #18 tabs Allergies Allergy/AdvReac Type Severity Reaction Status Date / Time No Known Allergies Allergy Verified 04/20/25 11:32 General Stated Complaint: SOB RAVEN: 2 Review of Systems Constitutional Constitutional: Reports as per HPI, Denies chills, Denies fever(s) and Denies headache(s) Eyes Eyes: Denies change in vision ENT Ears, Nose, Mouth, and Throat: Denies headache(s) Cardiovascular Cardiovascular: Reports as per HPI Respiratory Respiratory: Reports as per HPI, Denies chest congestion, Denies cough, Denies pain on inspiration and Denies pain with cough Gastrointestinal Gastrointestinal: Reports as per HPI, Denies abdominal pain, Denies diarrhea, Denies nausea and Denies vomiting Musculoskeletal Musculoskeletal: Reports as per HPI and Denies back pain Neurologic Neurologic: Reports as per HPI and Denies headache(s) Exam Const General: cooperative, well developed, in distress respiratory and anxious Nutritional Appearance: average body habitus and well nourished Orientation: alert, awake and oriented x3 HENMT Mouth: lip abnormal (Cyanotic) Chest Chest: normal inspection of the chest, normal palpation of entire chest wall and no crepitus Resp Effort & Inspection: no cough, labored, pursed lip breathing, respiratory distress, tachypneic, tripod positioning and uses accessory muscles Auscultation: diminished lung sounds bilaterally Cardio Rate: tachycardic Rhythm: regular rhythm Heart Sounds: S1 normal and S2 normal Skin General skin exam: ecchymosis (Scattered circular ecchymosis phimotic areas in the upper and lower extremi) Neuro General: patient alert, patient awake and patient oriented x3 Cognition: normal cognition Speech: speech normal Extrem General: normal to inspection, capillary refill normal, no pedal edema, no calf tenderness and normal gait Course Vital Signs Vital signs: Vital Signs Temperature 36.6 C 04/20/25 11:27 Pulse 95 H 04/20/25 11:27 Respiratory Rate 26 H 04/20/25 11:27 Pulse Oximetry 78 L 04/20/25 11:27 Temperature 36.6 C 04/20/25 11:27 Temperature Source Tympanic 04/20/25 11:27 Pulse 95 H 04/20/25 11:27 Respiratory Rate 26 H 04/20/25 11:27 Pulse Oximetry 78 L 04/20/25 11:27 Oxygen Delivery Method OxyMask 04/20/25 11:27 Oxygen Flow Rate 15 04/20/25 11:27 Pain Level 6 04/20/25 11:27 Medical Decision Making Patient is a 44-year-old male with past medical history significant for recurrent pancreatitis, DVT, osteomyelitis, hep C, hep B, polysubstance abuse,Pulmonary fibrosis, brought in by staff in a wheelchair and yelling that he is short of breath and having difficulty breathing. Patient is on oxygen currently via nasal cannula. Patient is on ample to answer a large amount of immediate questions continually repeating that he cannot answer due to shortness of breath. However, patient is yelling and is clearly moving air. He did have cyanosis periorally. Patient denies any recent change in his cough. No recent change in medications. He reports that his chest is tight but not painful. No recent fevers or chills. He is chronically on steroids and no recent change in this. On exam, patient appears acutely ill. As noted above, patient does have some perioral cyanosis. He is tachypneic, tachycardic and having some respiratory distress. Oxygen is in the 70s. Patient also appears profoundly anxious. His lung sounds are diminished. I do not appreciate any wheezing, I do feel it is appropriate to give DuoNebs as I am concerned that the underlying pulmonary dysfunction may be associated with obstructive pathology potentially leading to more silent chest. I did immediately perform a bedside ultrasound and to note lung sliding and normal M-mode findings bilaterally, no evidence to suggest a pneumothorax. He has no crepitus or abnormal findings with palpation or visual examination of the chest. Patient immediately transitioned to mask, oxygen to begin to, but RT will be consulted patient will be placed on BiPAP. Will obtain a bedside chest x-ray as well as baseline labs. Patient denies any recent cough but has been here for infections multiple times historically. Considered infectious etiology, pulmonary emboli, pneumothorax, acute exacerbation of his underlying chronic disease. Based on the breathing pattern and hypoxia, less likely to be ACS or metabolic acidosis although these will certainly be evaluated for as well. Will give Ativan to help with patient's anxiety. Patient given DuoNebs as well as dosing of methylprednisolone. RT at bedside. They are steadily increased BiPAPpressures, patient is requesting this. He appears more comfortable but still anxious and tachypneic. Will add additional ativan as this has helped int eh past and he is requesting more. RT advised he has required intubation in the past. Now on auscultation, sounds more wet, particularly on the right apex. As we discussed, does appear to haveChest x-ray reviewed by myself as well as the radiologist. He has severe bilateral pulmonary infiltrates significantly worsened compared to previous exam. Will move forward with CTA pending patient's renal labs returned. Labs reviewed. Patient has a leukocytosis white count is 27. This is up from 16 on the fourth. His VBG is significant for pH of 7.22 with a CO2 of 66. Lactate 5.2. CMP significant for sodium 132. His troponin is within normal limits. Will obtain a delta troponin as well. Ativan does help but only for short duration. Will give Valium. Creatinine is within normal limits will obtain CTA, slight delay in obtaining this based on the patient's anxiety level as well as his respiratory pattern. Once RT feels the patient is ready, will move forward with CTA. Based on the chest x-ray findings, patient started on vancomycin and cefepime. Patient also given Lasix after initial chest x-ray. Valium significantly improved patient's symptoms. He is now sleeping with the BiPAP on. Much more hemodynamically stable. CTA reviewed by radiologist: IMPRESSION: 1. Extensive bilateral pulmonary infiltrates involving all lobes of both lungs. No associated cavitation and there are no pleural effusions.. There is some enlarged lymph nodes in both hilar regions well as the subcarinal region of the mediastinum. 2. No evidence of pulmonary embolus nor pulmonary infarction (as per request). 3. Cardiomegaly. No pericardial effusion. No evidence of aortic dissection. Patient significantly improved. Will need to continue with IV antibiotics and continue monitoring. He remains on BiPAP and is be sleeping. Consulted with hospitalist regarding admission for pneumonia, acute respiratory presentation. Hospitalist agrees to admission to the ICU. Patient continues to be stable, on BiPAP and doing well. Quality:SDOH Health Related Social Needs: Health related social needs risk of homeless transpo insecurity material hardship house/econ circumstance daily activities lonely/isolated Health related social needs details pt lives with aunt and uncle but not for long- feels like a burden and not able to live on own [facility] All Active Problems (Updated 04/20/25 @ 16:48 by SYL Hays) Pulmonary fibrosis (Acute) Shortness of breath (Acute) Chronic hypercapnic respiratory failure (Acute) Chronic hypoxic respiratory failure (Acute) Drug-induced diffuse interstitial pulmonary fibrosis (Acute) ARDS/drug induced pulmonary fibrosis with [facility] [place] 12/27/24-02/14/25 Anxiety (Chronic) Acute respiratory failure with hypoxia and hypercarbia (Acute) Alcohol withdrawal (Acute) Multifocal pneumonia (Acute) Abdominal cramping (Acute) Ileus (Acute) Acute hypokalemia (Acute) HTN (hypertension) (Chronic) Suicide ideation (Acute) Polysubstance abuse (Chronic) Opioid use disorder (Acute) Nicotine dependence (Chronic) Opioid dependence on agonist therapy (Chronic) Alcohol dependence (Chronic) Medical History Gram-positive cocci bacteremia Acute and chronic respiratory failure with hypercapnia Bacteremia Weak Pancreatitis DVT (deep venous thrombosis) History of osteomyelitis Hepatitis B Hepatitis C Depression Polysubstance abuse Family History Other Alcohol use disorder Depression Social History (Updated 03/15/25 @ 08:34 by Lisa Romero RN) Smoking/Tobacco Use Status: Current every day Tobacco Type: cigarettes Tobacco: How many years used: 34 Smokeless tobacco user: chewing tobacco Smoking risk assessment performed?: Yes Alcohol Intake: current Alcohol Intake frequency: 0-2 drinks per day Alcohol type: hard liquor Drug use: Daily Substance use type: marijuana Details: Pt states he last used marijuana 10/23/24 Last used ETOH about 10/16/24 Housing: house Do you feel safe at home: Yes Do you feel safe in your relationship?: Yes
[2025-04-20 11:46] LABS: BE (Venous) -1 mmol/L (-2-3); HCO3 (Venous) 27 mmol/L (23-28); O2 Sat (Venous) 67 %; TCO2 (Venous) 25 mmol/L (24-29); pO2 (Venous) 44 mmHg
[2025-04-20] MEDS: LORazepam 20 MG/10 ML VIAL IVP ×2 (11:49→12:38)
[2025-04-20 11:50] LABS: Abs Immature Grans 0.18 10^3/uL (0.0-0.06); HCT 42.8 % (40.0-50.0); HGB 13.8 g/dL (13.5-17.5); Immature Grans % 0.7 %; MCH 30.4 pg (27.0-33.0); MCHC 32.2 % (32.0-36.0); MCV 94 fL (80-95); MPV 8.7 fL (8.0-11.0); Platelet Count 310 10^3/uL (130-400); RBC 4.54 10^6/uL (4.36-5.78); RDW 13.8 % (11.8-14.1); RDW-SD 47.5 fL
[2025-04-20] MEDS: methylPREDNISolone SUCC 125 MG VIAL IVP (11:50)
[2025-04-20 12:06] LABS: pCO2 (Venous) 66 mmHg (41-51)
[2025-04-20 12:09] LABS: ALT 27 U/L (16-63); AST 43 U/L (15-37); Albumin 3.5 g/dL (3.4-5.0); Alkaline Phosphatase 97 U/L (46-116); Anion Gap 10.0 mmol/L (3-11); BUN 8 mg/dL (7-18); Bilirubin, Total 0.5 mg/dL (0.2-1.0); CO2 28.0 mmol/L (21.0-32.0); Calcium 9.1 mg/dL (8.5-10.1); Chloride 94 mmol/L (98-107); Estimated GFR 111.22 (mL/min/1.73m2); Glucose 119 mg/dL (74-106); Magnesium 2.1 mg/dL (1.8-2.4); Potassium 4.2 mmol/L (3.5-5.1); Sodium 132 mmol/L (136-145); Total Protein 7.8 g/dL (6.4-8.2); Troponin I 15 ng/L (<or=76)
[2025-04-20] MEDS: CEFEPIME 2 GM in Normal Saline 100 ML IVPB (12:11)
[2025-04-20 12:13] LABS: RBC Morphology Normal
--- NOTE | 2025-04-20 12:15 | DI.CT_ITS ---
Exam(s) CT CHEST PE CTA EXAM: CT CHEST PE CTA CLINICAL HISTORY: SOB, infiltrates. TECHNIQUE: Imaging Protocol: CT angiography of the chest was performed using pulmonary embolus protocol. Multi planar reconstructions were performed. CONTRAST MATERIAL: Intravenous: Omnipaque 350 Contrast volume: 100 cc COMPARISON: CR,XR XR CHEST 2V PA LATERAL from 03/06/[address] CHEST PE CTA from 04/02/2025 CR XR PORTABLE CHEST AP from 04/20/2025 FINDINGS: CHEST: PULMONARY ARTERIES: There are no intraluminal filling defects to suggest acute pulmonary emboli. LUNGS: There are extensive bilateral infiltrates. All lobes of both lungs are involved by a combination ground-glass and confluent infiltrates which exhibit air bronchograms.. There is no cavitation. There are no pleural effusions. No significant focal findings in the trachea and mainstem bronchi. MEDIASTINUM: There is slightly enlarged lymph nodes in both hilar regions. There are also enlarged subcarinal lymph nodes and slightly prominent right paratracheal lymph nodes. There is no adenopathy in the anterior mediastinal fat. Visualized thyroid gland appears unremarkable. CARDIAC: Mild cardiomegaly. No pericardial effusion.Caliber of the thoracic aorta is within normal limits. There is no evidence of dissection. There is no significant shift of the interventricular septum. There is no reflux of intravenous contrast into the intrahepatic IVC. PARTIALLY VISUALIZED UPPERMOST ABDOMEN: No adrenal masses. No ascites. Subtle density in the gallbladder fundus may represent polyp worse calculus. No evidence of acute cholecystitis. OSSEOUS: No significant osseous lesions.No fractures.. IMPRESSION: 1. Extensive bilateral pulmonary infiltrates involving all lobes of both lungs. No associated cavitation and there are no pleural effusions.. There is some enlarged lymph nodes in both hilar regions well as the subcarinal region of the mediastinum. 2. No evidence of pulmonary embolus nor pulmonary infarction (as per request). 3. Cardiomegaly. No pericardial effusion. No evidence of aortic dissection. Report called by myself to ER 04/20/2025 at 2:15 p.m. RADIATION DOSE DELIVERED: 237.7mGy.cm Total DLP DATA REPOSITORY: All CT scans at this facility are submitted to the National Radiology Data Registry (NRDR) Dose Index Registry (DIR) with the [employer] ([employer]). RADIATION OPTIMIZATION: All CT scans at this facility use at least one of these dose optimization techniques: automated exposure control; mA and/or kV adjustment per patient size (includes targeted exams where dose is matched to clinical indication); or iterative reconstruction.
[2025-04-20 12:17] LABS: WBC 27.26 10^3/uL (4.4-10.8)
[2025-04-20] MEDS: Furosemide 100 MG/10 ML VIAL 80 MG IVP (12:47)
[2025-04-20] MEDS: Normal Saline 1,000 ML 1000 ML IV (12:53)
[2025-04-20] MEDS: VANCOMYCIN/WATER (PEG) 1.5 GM/300 ML BAG IVPB (13:07)
[2025-04-20 13:14] LABS: BE (Venous) 3 mmol/L (-2-3); HCO3 (Venous) 29 mmol/L (23-28); O2 Sat (Venous) 95 %; TCO2 (Venous) 26 mmol/L (24-29); pCO2 (Venous) 56 mmHg (41-51); pO2 (Venous) 78 mmHg
[2025-04-20] MEDS: diazePAM 10 MG/2 ML SYR 5 MG IVP (13:35)
[2025-04-20 13:44] LABS: Cannabinoids THC Negative (Negative); METHADONE URINE SCREEN Positive (Negative)
[2025-04-20 13:50] LABS: Troponin I 39 ng/L (<or=76)
[2025-04-20] MEDS: Normal Saline - Diluent 50 ML VIAL IJ (13:55)
[2025-04-20] MEDS: Omnipaque 350 MG/ML 100 ML BTL IJ (13:56)
[2025-04-20 14:59] LABS: Troponin I 110 ng/L (<or=76)
--- NOTE | 2025-04-20 15:40 | W.PM.HP.N ---
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 Decannulated January 2025. Patient's mother reports he started using heroin age 13. Very challenging course of addiction. Appreciate pulmonology input. (3) Multifocal pneumonia: Status: Acute Assessment and plan: Noted on imaging Continue doxycyline, vancomycin, cefepime (4) Polysubstance abuse: Status: Chronic Assessment and plan: Chronic, active History of Present Illness History of Present Illness Chief Complaint: shortness of breath Narrative: William Galo is a 44 year old man presenting April 20 with shortness of breath for about an hour. He has history of ARDS which caused pulmonary fibrosis and is dependent on home O2. His social situation is intermittently stable and he has supportive family. He reports constant difficulty breathing with anxiety. He is agitated, yelling from his wheelchair in the ED. He reports that he has no cough, no fever/chills, no nausea/vomiting. He is on a methadone program In the ED he had perioral cyanosis. He was found to have SpO2 in the 70's and required BIPAP. Neutrophilic leukocytosis 27.26. Hyponatremia 132. Elevated AST 43. Initial troponin 15 rising to 110. Urine positive for methadone. CXR showed severe bilateral pulmonary infiltrates, significantly worse than prior. CT with worsening GGOs and lymphadenopathy, no new acute findings. Pulmonology was consulted. [facility] All Active Problems (Updated 04/25/25 @ 04:43 by Gabriel Cheng MD) Comfort measures only status (Acute) Drug use disorder (Chronic) Pulmonary fibrosis (Acute) Shortness of breath (Acute) Chronic hypercapnic respiratory failure (Acute) Chronic hypoxic respiratory failure (Acute) Drug-induced diffuse interstitial pulmonary fibrosis (Chronic) ARDS/drug induced pulmonary fibrosis with [facility] 12/27/24-02/14/25 Anxiety (Chronic) Acute respiratory failure with hypoxia and hypercarbia (Acute) Alcohol withdrawal (Acute) Multifocal pneumonia (Acute) Abdominal cramping (Acute) Ileus (Acute) Acute hypokalemia (Acute) HTN (hypertension) (Chronic) Suicide ideation (Acute) Polysubstance abuse (Chronic) Opioid use disorder (Acute) Nicotine dependence (Chronic) Opioid dependence on agonist therapy (Chronic) Alcohol dependence (Chronic) Medical History Gram-positive cocci bacteremia Acute and chronic respiratory failure with hypercapnia Bacteremia Weak Pancreatitis DVT (deep venous thrombosis) History of osteomyelitis Hepatitis B Hepatitis C Depression Polysubstance abuse Family History Other Alcohol use disorder Depression Social History Smoking/Tobacco Use Status: Current every day Tobacco Type: cigarettes Tobacco: How many years used: 34 Smokeless tobacco user: chewing tobacco Smoking risk assessment performed?: Yes Alcohol Intake: current Alcohol Intake frequency: 0-2 drinks per day Alcohol type: hard liquor Drug use: Daily Substance use type: marijuana Details: Pt states he last used marijuana 10/23/24 Last used ETOH about 10/16/24 Housing: house Do you feel safe at home: Yes Do you feel safe in your relationship?: Yes Meds Allergies and Home Medications Allergies Allergy/AdvReac Type Severity Reaction Status Date / Time No Known Allergies Allergy Verified 04/20/25 19:23 Home Medications ?Medication ?Instructions ?Recorded ?Confirmed ?Type methadone 10 mg/mL oral concentrate 130 mg PO DAILY 10/10/23 04/20/25 History aripiprazole 5 mg tablet 5 mg PO DAILY 12/23/24 04/20/25 History bupropion HCl 150 mg 24 hr tablet, 150 mg PO DAILY 12/23/24 04/20/25 History extended release fluoxetine 40 mg capsule 40 mg PO DAILY depression 12/23/24 04/20/25 History gabapentin 600 mg tablet 600 mg PO TID 12/23/24 04/20/25 History losartan 50 mg tablet 50 mg PO DAILY 12/23/24 04/20/25 History folic acid 1 mg tablet 1 mg PO DAILY 02/28/25 04/20/25 History vitamin B complex 1 cap PO ONCE 02/28/25 04/20/25 History hydroxyzine HCl 10 mg tablet 10 mg PO Q8H PRN 03/04/25 04/20/25 History L. acidophilus,casei,rhamnosus 50 1 cap PO DAILY #10 caps 03/05/25 04/20/25 Rx billion cell capsule,delayed release (Bio-K plus) guaifenesin 1,200 mg tablet, 1,200 mg PO BID #10 tabs 03/05/25 04/20/25 Rx extended release 12 hr (Mucinex) ipratropium 0.5 mg-albuterol 3 mg 3 ml UPD Q6H PRN #90 mL 03/05/25 04/20/25 Rx (2.5 mg base)/3 mL nebulization soln thiamine HCl (vitamin B1) 100 mg 100 mg PO DAILY 03/06/25 04/20/25 History tablet budesonide 0.5 mg/2 mL suspension 0.5 mg (2 mL) inhalation BID #60 mL 03/15/25 04/20/25 Rx for nebulization bupropion HCl 300 mg 24 hr tablet, 300 mg PO DAILY 04/02/25 04/20/25 History extended release Exam Narrative Exam Narrative: General: This is a chronically ill-appearing man with flattened affect HEENT: Normocephalic, atraumatic, poor dentition CV: RRR Resp: Bilateral diffuse rales, good movement of air without increased work of breathing on 4L Abd: NTND +NBS Neuro: Awake and alert without focal deficits Results Imaging Imaging Studies: * * * * * EXAM: XR PORTABLE CHEST AP IMPRESSION: Severe bilateral pulmonary infiltrates with significant worsening when compared with the previous exam. Dictated By: Krupa Trivedi M.D. 04/20/25 1151 * * * * * EXAM: CT CHEST PE CTA IMPRESSION: 1. Extensive bilateral pulmonary infiltrates involving all lobes of both lungs. No associated cavitation and there are no pleural effusions.. There is some enlarged lymph nodes in both hilar regions well as the subcarinal region of the mediastinum. 2. No evidence of pulmonary embolus nor pulmonary infarction (as per request). 3. Cardiomegaly. No pericardial effusion. No evidence of aortic dissection. Dictated By: Charles Corcoran M.D. 04/20/25 1418 * * * * * Labs 04/20/25 11:35 04/20/25 11:35 Labs: Laboratory Results - last 24 hr 04/20/25 04/20/25 04/20/25 11:35 13:00 13:07 WBC 27.26 H* RBC 4.54 Hgb 13.8 Hct 42.8 MCV 94 MCH 30.4 MCHC 32.2 RDW 13.8 Plt Count 310 MPV 8.7 Immature Gran % 0.7 Neutrophils % 66.0 Lymphocytes % 20.3 Monocytes % 11.2 Eosinophils % 1.5 Basophils % 0.3 Nucleated RBC % 0.0 Absolute Neutrophils 17.99 H Absolute Lymphocytes 5.53 H Absolute Monocytes 3.05 H Absolute Eosinophils 0.41 Absolute Basophils 0.08 RBC Morphology Normal VBG pH 7.22 L 7.32 VBG pCO2 66 H* 56 H VBG pO2 44 78 VBG HCO3 27 29 H VBG Total CO2 25 26 VBG O2 Saturation 67 95 VBG Base Excess -1 3 VBG Lactate 5.2 H* Sodium 132 L Potassium 4.2 Chloride 94 L Carbon Dioxide 28.0 Anion Gap 10.0 BUN 8 Creatinine 0.8 Est GFR (CKD-EPI 2020) 111.22 Glucose 119 H Calcium 9.1 Magnesium 2.1 Total Bilirubin 0.5 AST 43 H ALT 27 Alkaline Phosphatase 97 Troponin I 15 39 Total Protein 7.8 Albumin 3.5 Urine Opiates Screen Negative Urine Methadone Screen Positive A Ur Barbiturates Screen Negative Ur Tricyclics Screen Negative Ur Amphetamines Screen Negative U Benzodiazepines Scrn Negative Urine Cocaine Screen Negative Ur THC Screen Negative 04/20/25 14:32 WBC RBC Hgb Hct MCV MCH MCHC RDW Plt Count MPV Immature Gran % Neutrophils % Lymphocytes % Monocytes % Eosinophils % Basophils % Nucleated RBC % Absolute Neutrophils Absolute Lymphocytes Absolute Monocytes Absolute Eosinophils Absolute Basophils RBC Morphology VBG pH VBG pCO2 VBG pO2 VBG HCO3 VBG Total CO2 VBG O2 Saturation VBG Base Excess VBG Lactate Sodium Potassium Chloride Carbon Dioxide Anion Gap BUN Creatinine Est GFR (CKD-EPI 2020) Glucose Calcium Magnesium Total Bilirubin AST ALT Alkaline Phosphatase Troponin I 110 H* Total Protein Albumin Urine Opiates Screen Urine Methadone Screen Ur Barbiturates Screen Ur Tricyclics Screen Ur Amphetamines Screen U Benzodiazepines Scrn Urine Cocaine Screen Ur THC Screen Last Vital Signs Temp 36.6 C 04/20/25 11:27 Pulse 90 04/20/25 15:01 Resp 23 04/20/25 15:01 BP 121/78 04/20/25 15:01 Pulse Ox 96 04/20/25 15:01 Time Spent Time spent with Patient: 40-54 minutes Time was spent: preparing to see the patient(eg.review tests), obtaining and/or reviewing separately otained hiistory, ordering medications,tests, procedures, referring, communicating with other health child caregiver private home, indepentently interpreting results, counseling the patient and care coordination
[2025-04-20] MEDS: LORazepam 0.5 MG TAB PO (17:28)
[2025-04-20] MEDS: DEXTROSE 5%-LACTATED RINGERS 1,000 ML 30 ML IV (17:35)
--- NOTE | 2025-04-20 19:09 | W.PM.DS.N ---
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 Decannulated January 2025. Patient's mother reports he started using heroin age 13. Very challenging course of addiction. Appreciate pulmonology input. (3) Multifocal pneumonia: Status: Acute Asessment and Plan: Noted on imaging Continue doxycyline, vancomycin, cefepime (4) Polysubstance abuse: Status: Chronic Asessment and Plan: Chronic, active Discharge Plan Disposition Patient Disposition: Eloped Condition: Serious Discharge Details Reason For Visit: Acute respiratory failure Admit Date/Time: 04/20/25 15:31 Admit Provider: Gabriel Cheng Attending Provider: Gabriel Cheng Primary Care Provider: Renny Rollins Hospital Course Hospital Course: William Galo is a 44 year old man presenting April 20 with shortness of breath for about an hour. He has history of ARDS which caused pulmonary fibrosis and is dependent on home O2. His social situation is intermittently stable and he has supportive family. He reports constant difficulty breathing with anxiety. He is agitated, yelling from his wheelchair in the ED. He reports that he has no cough, no fever/chills, no nausea/vomiting. He is on a methadone program In the ED he had perioral cyanosis. He was found to have SpO2 in the 70's and required BIPAP. Neutrophilic leukocytosis 27.26. Hyponatremia 132. Elevated AST 43. Initial troponin 15 rising to 110. Urine positive for methadone. CXR showed severe bilateral pulmonary infiltrates, significantly worse than prior. CT with worsening GGOs and lymphadenopathy, no new acute findings. Pulmonology was consulted. Patient left AMA soon after admission. Home Meds and New Rx's Prescriptions: No Action budesonide 0.5 mg/2 mL suspension for nebulization 0.5 mg inhalation BID Qty: 60 12RF methadone 10 mg/mL concentrate 130 mg PO DAILY Patient Comments: @ [facility], verified last dose 12/23/24 for 130 mg thiamine HCl (vitamin B1) 100 mg tablet 100 mg PO DAILY Patient Comments: TAKE ONE TABLET BY MOUTH DAILY fluoxetine 40 mg capsule 40 mg PO DAILY Patient Comments: TAKE ONE CAPSULE BY MOUTH EVERY MORNING gabapentin 600 mg tablet 600 mg PO TID Patient Comments: TAKE ONE TABLET BY MOUTH THREE TIMES A DAY DIRECTED losartan 50 mg tablet 50 mg PO DAILY Patient Comments: TAKE ONE TABLET BY MOUTH EVERY MORNING, FOR HIGH BLOOD PRESSURE aripiprazole 5 mg tablet 5 mg PO DAILY Patient Comments: TAKE ONE TABLET BY MOUTH EVERY DAY bupropion HCl 150 mg tablet extended release 24 hr 150 mg PO DAILY Patient Comments: TAKE ONE TABLET BY MOUTH EVERY DAY vitamin B complex Capsule 1 cap PO ONCE Patient Comments: TAKE ONE CAPSULE BY MOUTH EVERY MORNING folic acid 1 mg tablet 1 mg PO DAILY Patient Comments: TAKE ONE TABLET BY MOUTH EVERY DAY hydroxyzine HCl 10 mg tablet 10 mg PO Q8H PRN Patient Comments: TAKE ONE TABLET BY MOUTH EVERY 8 HOURS NEEDED FOR ANXIETY Bio-K plus 50 billion cell capsule,delayed release(DR/EC) 1 cap PO DAILY Qty: 10 0RF guaifenesin [Mucinex] 1,200 mg tablet extended release 12hr 1,200 mg PO BID Qty: 10 0RF ipratropium-albuterol 0.5 mg-3 mg(2.5 mg base)/3 mL Solution For Nebulization 3 ml UPD Q6H PRNQty: 90 0RF Patient Comments: hasn't started yet bupropion HCl 300 mg tablet extended release 24 hr 300 mg PO DAILY Patient Comments: TAKE ONE TABLET BY MOUTH EVERY DAY IN THE MORNING FOR ANXIETY/DEPRESSION Discharge Data Discharge Date/Time-TO BE ENTERED AT DEPARTURE: 04/20/25 19:10 DS: Summary Time Spent with Patient providing and/or coordinating discharge services: Less than 30 minutes Status at Discharge Functional status at discharge: independent ambulation Overall status at discharge: patient is not back to baseline Mental Status: other Speech and Movement: other Mood: other Affect: other Quality:SDOH Health Related Social Needs: Health related social needs risk of homeless transpo insecurity material hardship house/econ circumstance daily activities lonely/isolated Health related social needs details pt lives with aunt and uncle but not for long- feels like a burden and not able to live on own Exam Narrative Exam Narrative: Patient left AMA, unable to examine. Psych Mental Status: other Speech and Movement: other Mood: other Affect: other DS: Data Vitals/I&O Vitals and I&O: Vital Signs Temperature 36.8 C 04/20/25 17:29 Temperature Source Temporal Artery Scan 04/20/25 17:29 Pulse 78 04/20/25 18:01 Pulse 78 04/20/25 18:01 Respiratory Rate 22 04/20/25 18:01 Respiratory Effort Short of Breath, Labored, Accessory Muscle Use, Grunting, Tripod, Incrsd Work of Breathing 04/20/25 14:07 Respiratory Depth Shallow 04/20/25 14:07 Respiratory Pattern Tachypnea 04/20/25 14:07 Blood Pressure 119/69 04/20/25 18:01 Blood Pressure Mean 84 04/20/25 18:01 Pulse Oximetry 92 04/20/25 18:01 Oxygen Delivery Method Nasal Cannula 04/20/25 17:42 Oxygen Flow Rate 5 04/20/25 17:42 Fraction of Inspired Oxygen (FIO2) 50 04/20/25 14:25 Pain Level 6 04/20/25 11:27 Intake & Output 04/19/25 04/20/25 04/20/25 23:59 11:59 23:59 Intake Total 10 / 1130 1120 / 1130 Output Total 4950 / 4950 Balance 10 / -3820 -3830 / -3820 Weight 99.79 kg 84.6 kg Intake: IV 10 / 1130 1120 / 1130 Output: Urine 4950 / 4950 Data Completed and Pending Labs on day of discharge: Labs from last 24 hours 04/20/25 04/20/25 04/20/25 14:32 13:07 13:00 WBC RBC Hgb Hct MCV MCH MCHC RDW Plt Count MPV Immature Gran % Neutrophils % Lymphocytes % Monocytes % Eosinophils % Basophils % Nucleated RBC % Absolute Neutrophils Absolute Lymphocytes Absolute Monocytes Absolute Eosinophils Absolute Basophils RBC Morphology VBG pH 7.32 VBG pCO2 56 H VBG pO2 78 VBG HCO3 29 H VBG Total CO2 26 VBG O2 Saturation 95 VBG Base Excess 3 VBG Lactate Sodium Potassium Chloride Carbon Dioxide Anion Gap BUN Creatinine Est GFR (CKD-EPI 2020) Glucose Calcium Magnesium Total Bilirubin AST ALT Alkaline Phosphatase Troponin I 110 H* 39 Total Protein Albumin Urine Opiates Screen Negative Urine Methadone Screen Positive A Ur Barbiturates Screen Negative Ur Tricyclics Screen Negative Ur Amphetamines Screen Negative U Benzodiazepines Scrn Negative Urine Cocaine Screen Negative Ur THC Screen Negative 04/20/25 11:35 WBC 27.26 H* RBC 4.54 Hgb 13.8 Hct 42.8 MCV 94 MCH 30.4 MCHC 32.2 RDW 13.8 Plt Count 310 MPV 8.7 Immature Gran % 0.7 Neutrophils % 66.0 Lymphocytes % 20.3 Monocytes % 11.2 Eosinophils % 1.5 Basophils % 0.3 Nucleated RBC % 0.0 Absolute Neutrophils 17.99 H Absolute Lymphocytes 5.53 H Absolute Monocytes 3.05 H Absolute Eosinophils 0.41 Absolute Basophils 0.08 RBC Morphology Normal VBG pH 7.22 L VBG pCO2 66 H* VBG pO2 44 VBG HCO3 27 VBG Total CO2 25 VBG O2 Saturation 67 VBG Base Excess -1 VBG Lactate 5.2 H* Sodium 132 L Potassium 4.2 Chloride 94 L Carbon Dioxide 28.0 Anion Gap 10.0 BUN 8 Creatinine 0.8 Est GFR (CKD-EPI 2020) 111.22 Glucose 119 H Calcium 9.1 Magnesium 2.1 Total Bilirubin 0.5 AST 43 H ALT 27 Alkaline Phosphatase 97 Troponin I 15 Total Protein 7.8 Albumin 3.5 Urine Opiates Screen Urine Methadone Screen Ur Barbiturates Screen Ur Tricyclics Screen Ur Amphetamines Screen U Benzodiazepines Scrn Urine Cocaine Screen Ur THC Screen 04/20/25 13:00 Blood Blood Culture - Pending 04/20/25 12:42 Blood Blood Culture - Pending Preliminary micro results at discharge 04/20/25 13:00 Blood Blood Culture - Pending 04/20/25 12:42 Blood Blood Culture - Pending [facility] All Active Problems (Updated 04/25/25 @ 04:43 by Gabriel Cheng MD) Comfort measures only status (Acute) Drug use disorder (Chronic) Pulmonary fibrosis (Acute) Shortness of breath (Acute) Chronic hypercapnic respiratory failure (Acute) Chronic hypoxic respiratory failure (Acute) Drug-induced diffuse interstitial pulmonary fibrosis (Chronic) ARDS/drug induced pulmonary fibrosis with [facility] 12/27/24-02/14/25 Anxiety (Chronic) Acute respiratory failure with hypoxia and hypercarbia (Acute) Alcohol withdrawal (Acute) Multifocal pneumonia (Acute) Abdominal cramping (Acute) Ileus (Acute) Acute hypokalemia (Acute) HTN (hypertension) (Chronic) Suicide ideation (Acute) Polysubstance abuse (Chronic) Opioid use disorder (Acute) Nicotine dependence (Chronic) Opioid dependence on agonist therapy (Chronic) Alcohol dependence (Chronic) Medical History Gram-positive cocci bacteremia Acute and chronic respiratory failure with hypercapnia Bacteremia Weak Pancreatitis DVT (deep venous thrombosis) History of osteomyelitis Hepatitis B Hepatitis C Depression Polysubstance abuse Family History Other Alcohol use disorder Depression Social History Smoking/Tobacco Use Status: Current every day Tobacco Type: cigarettes Tobacco: How many years used: 34 Smokeless tobacco user: chewing tobacco Smoking risk assessment performed?: Yes Alcohol Intake: current Alcohol Intake frequency: 0-2 drinks per day Alcohol type: hard liquor Drug use: Daily Substance use type: marijuana Details: Pt states he last used marijuana 10/23/24 Last used ETOH about 10/16/24 Housing: house Do you feel safe at home: Yes Do you feel safe in your relationship?: Yes Time Spent with Patient Time Spent with Patient: <45 minutes Time was spent: other
== END 2025-04-20 19:10 | disposition left against medical advice (07) | DRG 193 ==
LOC: ER 16:48 → ICU 17:15
PROVIDERS: Admitting Provider Family Medicine; Emergency Provider Physician Assistant; PCP Student in an Organized Health Care Education/Training Program; Visit Provider Family Medicine
DX: J18.9 Pneumonia, unspecified organism (principal); J96.21 Acute and chronic respiratory failure with hypoxia; F11.20 Opioid dependence, uncomplicated; R45.851 Suicidal ideations; Z59.811 Housing instability, housed, with risk of homelessness; J96.12 Chronic respiratory failure with hypercapnia; F10.10 Alcohol abuse, uncomplicated; F19.10 Other psychoactive substance abuse, uncomplicated; D72.829 Elevated white blood cell count, unspecified; R94.31 Abnormal electrocardiogram [ECG] [EKG]; Z86.718 Personal history of other venous thrombosis and embolism; Z86.19 Personal history of other infectious and parasitic diseases; F41.9 Anxiety disorder, unspecified; I10 Essential (primary) hypertension; F17.210 Nicotine dependence, cigarettes, uncomplicated; F32.A Depression, unspecified; F17.220 Nicotine dependence, chewing tobacco, uncomplicated; Z79.899 Other long term (current) drug therapy; Z59.82 Transportation insecurity; Z59.89 Other problems related to housing and economic circumstances
CPT/HCPCS: 00123; 36415; 71275; 80053; 80307; 82805; 87040; 94640; 96365; 96367; 96375; 96376; 99285; 71045; 83605; 83735; 84484; 85025; 94660; 99222; J0692; J1938; J2060; J2919; J3360; J3373; J3490; J7620

== ENCOUNTER 2025-04-20 19:15 | Inpatient (IN) | payer MEDICAID, SELFPAY ==
[2025-04-20] VITALS (30 sets, daily range): BP systolic 112–149; BP diastolic 79–86; PULSE 63–94; RESP 14–36; TEMP 36.7; O2SAT 86–97
--- NOTE | 2025-04-20 19:29 | W.ED.GENAD ---
Discharge Plan Discharge Details Chief Complaint: SOB Clinical Impression: Acute respiratory failure with hypoxia and hypercarbia, Multifocal pneumonia Primary Care Provider: Renny Rollins ED Provider: Regino Del Toro Home Meds and New Rx's Prescriptions: No Action budesonide 0.5 mg/2 mL suspension for nebulization 0.5 mg inhalation BID Qty: 60 12RF methadone 10 mg/mL concentrate 130 mg PO DAILY Patient Comments: @ [facility], verified last dose 12/23/24 for 130 mg thiamine HCl (vitamin B1) 100 mg tablet 100 mg PO DAILY Patient Comments: TAKE ONE TABLET BY MOUTH DAILY fluoxetine 40 mg capsule 40 mg PO DAILY Patient Comments: TAKE ONE CAPSULE BY MOUTH EVERY MORNING gabapentin 600 mg tablet 600 mg PO TID Patient Comments: TAKE ONE TABLET BY MOUTH THREE TIMES A DAY DIRECTED losartan 50 mg tablet 50 mg PO DAILY Patient Comments: TAKE ONE TABLET BY MOUTH EVERY MORNING, FOR HIGH BLOOD PRESSURE aripiprazole 5 mg tablet 5 mg PO DAILY Patient Comments: TAKE ONE TABLET BY MOUTH EVERY DAY bupropion HCl 150 mg tablet extended release 24 hr 150 mg PO DAILY Patient Comments: TAKE ONE TABLET BY MOUTH EVERY DAY vitamin B complex Capsule 1 cap PO ONCE Patient Comments: TAKE ONE CAPSULE BY MOUTH EVERY MORNING folic acid 1 mg tablet 1 mg PO DAILY Patient Comments: TAKE ONE TABLET BY MOUTH EVERY DAY hydroxyzine HCl 10 mg tablet 10 mg PO Q8H PRN Patient Comments: TAKE ONE TABLET BY MOUTH EVERY 8 HOURS NEEDED FOR ANXIETY Bio-K plus 50 billion cell capsule,delayed release(DR/EC) 1 cap PO DAILY Qty: 10 0RF guaifenesin [Mucinex] 1,200 mg tablet extended release 12hr 1,200 mg PO BID Qty: 10 0RF ipratropium-albuterol 0.5 mg-3 mg(2.5 mg base)/3 mL Solution For Nebulization 3 ml UPD Q6H PRNQty: 90 0RF Patient Comments: hasn't started yet bupropion HCl 300 mg tablet extended release 24 hr 300 mg PO DAILY Patient Comments: TAKE ONE TABLET BY MOUTH EVERY DAY IN THE MORNING FOR ANXIETY/DEPRESSION prednisone 20 mg tablet 20 mg PO DAILY 9 Days Qty: 18 0RF Rx Instructions: Take one tab TID x 3 days, Take 1 tabs BID daily x 3 days, Take 1 tab one time daily x 3 days. HPI General Mode of arrival: wheelchair. Date/Time Provider Initiated Documentation: 04/20/25 19:16. Limitations to Documentation: no limitations. Information obtained by: patient. History of Present Illness 44 year old M presents to the emergency department with the chief complaint of shortness of breath, described as moderate, Patient started experiencing this day(s) (1) and it has been constant. No relieving factors improve symptom(s), No exacerbating factors reported . Patient notes shortness of breath; denies chest pain. Patient did receive the following treatments prior to arrival, none Related Data Home Medications ?Medication ?Instructions ?Recorded ?Confirmed methadone 10 mg/mL oral concentrate 130 mg PO DAILY 10/10/23 04/20/25 aripiprazole 5 mg tablet 5 mg PO DAILY 12/23/24 04/20/25 bupropion HCl 150 mg 24 hr tablet, 150 mg PO DAILY 12/23/24 04/20/25 extended release fluoxetine 40 mg capsule 40 mg PO DAILY depression 12/23/24 04/20/25 gabapentin 600 mg tablet 600 mg PO TID 12/23/24 04/20/25 losartan 50 mg tablet 50 mg PO DAILY 12/23/24 04/20/25 folic acid 1 mg tablet 1 mg PO DAILY 02/28/25 04/20/25 vitamin B complex 1 cap PO ONCE 02/28/25 04/20/25 hydroxyzine HCl 10 mg tablet 10 mg PO Q8H PRN 03/04/25 04/20/25 L. acidophilus,casei,rhamnosus 50 1 cap PO DAILY #10 caps 03/05/25 04/20/25 billion cell capsule,delayed release (Bio-K plus) guaifenesin 1,200 mg tablet, 1,200 mg PO BID #10 tabs 03/05/25 04/20/25 extended release 12 hr (Mucinex) ipratropium 0.5 mg-albuterol 3 mg 3 ml UPD Q6H PRN #90 mL 03/05/25 04/20/25 (2.5 mg base)/3 mL nebulization soln thiamine HCl (vitamin B1) 100 mg 100 mg PO DAILY 03/06/25 04/20/25 tablet budesonide 0.5 mg/2 mL suspension 0.5 mg (2 mL) inhalation BID #60 mL 03/15/25 04/20/25 for nebulization bupropion HCl 300 mg 24 hr tablet, 300 mg PO DAILY 04/02/25 04/20/25 extended release prednisone 20 mg tablet 20 mg PO DAILY Pulmonary Fibrosis 04/15/25 04/20/25 9 days #18 tabs Previous Rx's ?Medication ?Instructions ?Recorded L. acidophilus,casei,rhamnosus 50 1 cap PO DAILY #10 caps 03/05/25 billion cell capsule,delayed release (Bio-K plus) guaifenesin 1,200 mg tablet, 1,200 mg PO BID #10 tabs 03/05/25 extended release 12 hr (Mucinex) ipratropium 0.5 mg-albuterol 3 mg 3 ml UPD Q6H PRN #90 mL 03/05/25 (2.5 mg base)/3 mL nebulization soln budesonide 0.5 mg/2 mL suspension 0.5 mg (2 mL) inhalation BID #60 mL 03/15/25 for nebulization prednisone 20 mg tablet 20 mg PO DAILY Pulmonary Fibrosis 04/15/25 9 days #18 tabs Allergies Allergy/AdvReac Type Severity Reaction Status Date / Time No Known Allergies Allergy Verified 04/20/25 19:23 General Stated Complaint: SOB RAVEN: 3 Review of Systems All systems reviewed & are unremarkable except as noted in HPI and below Constitutional Constitutional: Denies chills and Denies fever(s) Cardiovascular Cardiovascular: Denies chest pain and Reports dyspnea Respiratory Respiratory: Reports cough and Reports dyspnea Gastrointestinal Gastrointestinal: Denies abdominal pain, Denies nausea and Denies vomiting Exam Const General: no acute distress Orientation: alert HENTN Head: normal to inspection Ears: external ears normal General nose exam: external nose normal Mouth: moist mucous membranes Eyes General: appearance normal, both eyes and all related structures Neck Neck: normal visual inspection Resp Effort & Inspection: cough and tachypneic Auscultation: wheezes Cardio Jugular venous pressure: no JVD Rate: regular rate Skin General skin exam: no rashes or lesions noted Neuro General: patient alert and patient oriented x3 Extrem General: normal to inspection Psych Mental Status: mental status grossly normal Course Vital Signs Vital signs: Vital Signs Temperature 36.7 C 04/20/25 19:19 Pulse 91 H 04/20/25 19:19 Respiratory Rate 20 04/20/25 19:19 Blood Pressure 149/86 H 04/20/25 19:19 Pulse Oximetry 86 L 04/20/25 19:19 Temperature 36.7 C 04/20/25 19:19 Temperature Source Oral 04/20/25 19:19 Pulse 91 H 04/20/25 19:19 Respiratory Rate 20 04/20/25 19:19 Blood Pressure 149/86 H 04/20/25 19:19 Pulse Oximetry 86 L 04/20/25 19:19 Oxygen Delivery Method Nasal Cannula 04/20/25 19:19 Oxygen Flow Rate 8 04/20/25 19:19 Pain Level 0 04/20/25 19:19 Medical Decision Making 44-year-old male with a history of chronic hypercapnic respiratory failure with prior substance abuse disorder on methadone who was just admitted in the last couple hours upstairs after being found to have multifocal pneumonia on chest x-ray and CTA and was given IV methylprednisolone, cefepime and vancomycin. He apparently went upstairs on BiPAP and upstairs was requesting a soda which nobody gave him so he states he asked to leave and was put in wheelchair and by the time he got down to the hospital waiting room he was feeling significantly more short of breath so rechecked him to the ER. Patient is alert and oriented speaking 3-4 word sentences. He has apical wheezing bilaterally. No JVD. Denies any chest pain. Given he had numerous lab tests and CT imaging done just earlier today I do not feel any further labs or imaging are indicated. Will consult RT about potentially doing high flow versus BiPAP and discussed with hospitalist about readmitting him. Patient states that he does want to stay Differential Diagnosis Differential Diagnosis: Pneumonia, chronic lung disease Quality:SDOH Health Related Social Needs: Health related social needs risk of homeless transpo insecurity material hardship house/econ circumstance daily activities lonely/isolated Health related social needs details pt lives with aunt and uncle but not for long- feels like a burden and not able to live on own [facility] All Active Problems (Updated 04/20/25 @ 19:33 by Regino Del Toro MD) Pulmonary fibrosis (Acute) Shortness of breath (Acute) Chronic hypercapnic respiratory failure (Acute) Chronic hypoxic respiratory failure (Acute) Drug-induced diffuse interstitial pulmonary fibrosis (Acute) ARDS/drug induced pulmonary fibrosis with [facility]/27/24-02/14/25 Anxiety (Chronic) Acute respiratory failure with hypoxia and hypercarbia (Acute) Alcohol withdrawal (Acute) Multifocal pneumonia (Acute) Abdominal cramping (Acute) Ileus (Acute) Acute hypokalemia (Acute) HTN (hypertension) (Chronic) Suicide ideation (Acute) Polysubstance abuse (Chronic) Opioid use disorder (Acute) Nicotine dependence (Chronic) Opioid dependence on agonist therapy (Chronic) Alcohol dependence (Chronic) Medical History Gram-positive cocci bacteremia Acute and chronic respiratory failure with hypercapnia Bacteremia Weak Pancreatitis DVT (deep venous thrombosis) History of osteomyelitis Hepatitis B Hepatitis C Depression Polysubstance abuse Family History Other Alcohol use disorder Depression Social History (Updated 03/15/25 @ 08:34 by Lisa Romero RN) Smoking/Tobacco Use Status: Current every day Tobacco Type: cigarettes Tobacco: How many years used: 34 Smokeless tobacco user: chewing tobacco Smoking risk assessment performed?: Yes Alcohol Intake: current Alcohol Intake frequency: 0-2 drinks per day Alcohol type: hard liquor Drug use: Daily Substance use type: marijuana Details: Pt states he last used marijuana 10/23/24 Last used ETOH about 10/16/24 Housing: house Do you feel safe at home: Yes Do you feel safe in your relationship?: Yes
[2025-04-20 19:52] LABS: BE (Venous) 9 mmol/L (-2-3); HCO3 (Venous) 34 mmol/L (23-28); O2 Sat (Venous) 80 %; TCO2 (Venous) 30 mmol/L (24-29); pCO2 (Venous) 59 mmHg (41-51); pO2 (Venous) 46 mmHg
[2025-04-20 19:54] LABS: Abs Immature Grans 0.11 10^3/uL (0.0-0.06); HCT 42.9 % (40.0-50.0); HGB 13.9 g/dL (13.5-17.5); Immature Grans % 0.5 %; MCH 29.9 pg (27.0-33.0); MCHC 32.4 % (32.0-36.0); MCV 92 fL (80-95); MPV 8.8 fL (8.0-11.0); Platelet Count 275 10^3/uL (130-400); RBC 4.65 10^6/uL (4.36-5.78); RDW 14.0 % (11.8-14.1); RDW-SD 46.9 fL; WBC 20.47 10^3/uL (4.4-10.8)
[2025-04-20 20:23] LABS: ALT 29 U/L (16-63); AST 45 U/L (15-37); Albumin 3.6 g/dL (3.4-5.0); Alkaline Phosphatase 99 U/L (46-116); Anion Gap 8.5 mmol/L (3-11); BUN 9 mg/dL (7-18); Bilirubin, Total 0.9 mg/dL (0.2-1.0); CO2 31.5 mmol/L (21.0-32.0); Calcium 9.2 mg/dL (8.5-10.1); Chloride 97 mmol/L (98-107); Estimated GFR 107.33 (mL/min/1.73m2); Glucose 152 mg/dL (74-106); Magnesium 1.8 mg/dL (1.8-2.4); Potassium 4.6 mmol/L (3.5-5.1); Sodium 137 mmol/L (136-145); Total Protein 8.1 g/dL (6.4-8.2)
[2025-04-20 20:32] LABS: Cannabinoids THC Negative (Negative); METHADONE URINE SCREEN Positive (Negative)
--- NOTE | 2025-04-20 22:00 | W.PM.HP.N ---
Date of service: 04/20/25 Time of Service: 22:00 Assessment and Plan Assessment and plan (1) Acute respiratory failure with hypoxia and hypercarbia: Start date: 04/20/25 Status: Acute Assessment and plan: This is a 44-year-old gentleman who just left AMA and returned without leaving the hospital premises. He will be readmitted for oxygen supplementation and reinitiation of treatment of exacerbation of his chronic lung disease as well as multifocal pneumonia with IV cefepime and vancomycin. He will receive IV Solu-Medrol as well. He has not required BiPAP at this time but if question of CO2 retention, VBG should be repeated. He does have an elevated lactate which will be followed up with gentle IV hydration overnight. He also will be fed. Long-term he needs to stop smoking tobacco, have his housing and home care issues addressed as well as continue methadone with no illicit drug use if possible. Prognosis poor for these changes. He is a full code. (2) Multifocal pneumonia: Start date: 04/20/25 Status: Acute Assessment and plan: Continue and restart IV cefepime and vancomycin. Respiratory care while in the hospital. 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 Tobacco cessation would be ideal. (4) Depression: Assessment and plan: Continue outpatient medical therapy. (5) Drug use disorder: Status: Chronic Assessment and plan: Urine drug screen is only positive for prescribed methadone and expanded urine drug screen was sent for evaluation. Patient does have a history of smoking crack cocaine in the hospital and he will be monitored closely for carry-on illicit drugs. He was agreeable to this when he left AMA if he did return to the ICU. This will be voluntary. Prognosis is poor for change with patient's social situation and poor insight. He has a high risk for self treatment. (6) Alcohol dependence: Status: Chronic Assessment and plan: Patient does not admit to drinking alcohol recently. Alcohol was not performed and will not be done at this time. Monitor closely for alcohol withdrawal symptoms as well as drug withdrawal symptoms with unknown illicit drug use. (7) Nicotine dependence: Status: Chronic Assessment and plan: NicoDerm patch for supplement while in the hospital. Patient cannot smoke in the hospital. (8) Opioid dependence on agonist therapy: Status: Chronic Assessment and plan: Decrease daily opioid dose of methadone to 100 mg daily from 130 with his acute illness and possible for clearance. This also could cause some respiratory suppression. Avoid benzodiazepines. History of Present Illness History of Present Illness Chief Complaint: Worsening dyspnea. Narrative: This is a 44-year-old male patient who is essentially homeless living in a hotel room now but try to get into a home group home with him he can have more medical attention and a more normal environment. He does admit to smoking and did present to the ED with shortness of breath without a BM acute on chronic hypoxic with hypercapnic respiratory failure. He also had multilobar pneumonia. He was admitted early in the day and on BiPAP with clearing his hypercapnia and more alert wanting to eat and getting angry and leaving AMA. He did not make it outside the hospital grounds and return to the ED very short of breath. He is requiring higher oxygen supplementation to his baseline and does feel short of breath with no cough. He has had no fever or chest pain. He is hungry and wants to eat and was given a meal. See admission H&P from earlier in the day for details of presentation at that time. He is agreeable to staying in the hospital at this time and I will reinstitute his IV antibiotic therapy and respiratory care. He will receive IV Solu-Medrol because of exacerbation of his chronic lung disease which is mostly restrictive. He is a cigarette smoker and will have nicotine supplement. He does have drug use disorder and often does carry a crack cocaine pipe on his body which will be voluntarily retrieved. He is cooperative at this time. Urine drug screen was only positive for methadone which he is prescribed. Send out urine drug screen for atypical street drugs was also performed. VPMS was reviewed but does not show his administration of methadone through the clinic with no other prescribed controlled substances. This may help in long-term care. He does remain a full code. Review of Systems Narrative: 13 point review of systems otherwise unrevealing or stable. PFSH All Active Problems (Updated 04/21/25 @ 08:07 by Benjamín Dyer MD) Prolonged QT interval (Acute) Drug use disorder (Chronic) Pulmonary fibrosis (Acute) Shortness of breath (Acute) Chronic hypercapnic respiratory failure (Acute) Chronic hypoxic respiratory failure (Acute) Drug-induced diffuse interstitial pulmonary fibrosis (Chronic) [place]DS[place]drug induced [place] [facility] [place]/27/24-02/14/25 Anxiety (Chronic) Acute respiratory failure with hypoxia and hypercarbia (Acute) Alcohol withdrawal (Acute) Multifocal pneumonia (Acute) Abdominal cramping (Acute) Ileus (Acute) Acute hypokalemia (Acute) HTN (hypertension) (Chronic) Suicide ideation (Acute) Polysubstance abuse (Chronic) Opioid use disorder (Acute) Nicotine dependence (Chronic) Opioid dependence on agonist therapy (Chronic) Alcohol dependence (Chronic) Medical History Gram-positive cocci bacteremia Acute and chronic respiratory failure with hypercapnia Bacteremia Weak Pancreatitis DVT (deep venous thrombosis) History of osteomyelitis Hepatitis B Hepatitis C Depression Polysubstance abuse Family History Other Alcohol use disorder Depression Social History Smoking/Tobacco Use Status: Current every day Tobacco Type: cigarettes Tobacco: How many years used: 34 Smokeless tobacco user: chewing tobacco Smoking risk assessment performed?: Yes Alcohol Intake: current Alcohol Intake frequency: 0-2 drinks per day Alcohol type: hard liquor Drug use: Daily Substance use type: marijuana Details: Pt states he last used marijuana 10/23/24 Last used ETOH about 10/16/24 Housing: house Do you feel safe at home: Yes Do you feel safe in your relationship?: Yes Meds Allergies and Home Medications Allergies Allergy/AdvReac Type Severity Reaction Status Date / Time No Known Allergies Allergy Verified 04/20/25 19:23 Home Medications ?Medication ?Instructions ?Recorded ?Confirmed ?Type methadone 10 mg/mL oral concentrate 130 mg PO DAILY 10/10/23 04/20/25 History aripiprazole 5 mg tablet 5 mg PO DAILY 12/23/24 04/20/25 History bupropion HCl 150 mg 24 hr tablet, 150 mg PO DAILY 12/23/24 04/20/25 History extended release fluoxetine 40 mg capsule 40 mg PO DAILY depression 12/23/24 04/20/25 History gabapentin 600 mg tablet 600 mg PO TID 12/23/24 04/20/25 History losartan 50 mg tablet 50 mg PO DAILY 12/23/24 04/20/25 History folic acid 1 mg tablet 1 mg PO DAILY 02/28/25 04/20/25 History vitamin B complex 1 cap PO ONCE 02/28/25 04/20/25 History hydroxyzine HCl 10 mg tablet 10 mg PO Q8H PRN 03/04/25 04/20/25 History L. acidophilus,casei,rhamnosus 50 1 cap PO DAILY #10 caps 03/05/25 04/20/25 Rx billion cell capsule,delayed release (Bio-K plus) guaifenesin 1,200 mg tablet, 1,200 mg PO BID #10 tabs 03/05/25 04/20/25 Rx extended release 12 hr (Mucinex) ipratropium 0.5 mg-albuterol 3 mg 3 ml UPD Q6H PRN #90 mL 03/05/25 04/20/25 Rx (2.5 mg base)/3 mL nebulization soln thiamine HCl (vitamin B1) 100 mg 100 mg PO DAILY 03/06/25 04/20/25 History tablet budesonide 0.5 mg/2 mL suspension 0.5 mg (2 mL) inhalation BID #60 mL 03/15/25 04/20/25 Rx for nebulization bupropion HCl 300 mg 24 hr tablet, 300 mg PO DAILY 04/02/25 04/20/25 History extended release prednisone 20 mg tablet 20 mg PO DAILY Pulmonary Fibrosis 04/15/25 04/20/25 Rx 9 days #18 tabs Exam Narrative Exam Narrative: General: Patient appears older than stated age and chronically ill. He is in moderate distress with his dyspnea. He has fair eye contact with a flattened affect. He does express that he is hungry. HEENT: Normocephalic, eyes with pupils equal and reactive to light symmetrically, extraocular movement intact and sclera anicteric. Oropharynx with dry mucosa and poor dentition. Neck: Supple without JVD. Back: Stooped posture without CVA tenderness. Lungs: Fair aeration with bronchovesicular breath sounds diffusely, no focal expiratory rales or rhonchi but diffuse sparse coarse crackles. No expiratory wheeze. No intercostal retractions. Heart: Regular rate and rhythm with no murmurs gallops appreciated. Abdomen: Mildly obese contour, soft and nontender to palpation with no palpable hepatosplenomegaly. Bowel sounds positive in all quadrants. Genitalia/rectal: Exam deferred. Extremities: Moderate nonpitting edema both lower extremities with bruising and hyperpigmentation as well as loss of hair but no overt ulcerations. No clubbing or cyanosis. Fair cap refill. Skin: Various abrasions and bruising over lower extremities as mentioned, pale, warm and moist. Neuro: Cranial nerves II through XII gross intact, no focal motor deficits and no tremor. Psych: Flattened affect with poor eye contact as mentioned being slightly anxious with depressed mood. No abnormal thought processes. Remote and recent memory grossly intact. Results Labs 04/21/25 05:44 04/21/25 05:44 Labs: Laboratory Results - last 24 hr 04/20/25 04/20/25 19:45 20:08 WBC 20.47 H RBC 4.65 Hgb 13.9 Hct 42.9 MCV 92 MCH 29.9 MCHC 32.4 RDW 14.0 Plt Count 275 MPV 8.8 Immature Gran % 0.5 Neutrophils % 93.8 Lymphocytes % 1.6 Monocytes % 3.9 Eosinophils % 0.0 Basophils % 0.2 Nucleated RBC % 0.0 Absolute Neutrophils 19.20 H Absolute Lymphocytes 0.33 L Absolute Monocytes 0.80 Absolute Eosinophils 0.00 Absolute Basophils 0.04 VBG pH 7.37 VBG pCO2 59 H VBG pO2 46 VBG HCO3 34 H VBG Total CO2 30 H VBG O2 Saturation 80 VBG Base Excess 9 H VBG Lactate 3.0 H* Sodium 137 Potassium 4.6 Chloride 97 L Carbon Dioxide 31.5 Anion Gap 8.5 BUN 9 Creatinine 0.9 Est GFR (CKD-EPI 2020) 107.33 Glucose 152 H Calcium 9.2 Magnesium 1.8 Total Bilirubin 0.9 AST 45 H ALT 29 Alkaline Phosphatase 99 Total Protein 8.1 Albumin 3.6 Urine Opiates Screen Negative Urine Methadone Screen Positive A Ur Barbiturates Screen Negative Ur Tricyclics Screen Negative Ur Amphetamines Screen Negative U Benzodiazepines Scrn Negative Urine Cocaine Screen Negative Ur THC Screen Negative Last Vital Signs Temp 36.7 C 04/20/25 20:29 Pulse 94 H 04/20/25 20:29 Resp 29 H 04/20/25 20:29 BP 112/79 04/20/25 20:29 Pulse Ox 95 04/20/25 20:29 Time Spent Time spent with Patient: >75 minutes Time was spent: preparing to see the patient(eg.review tests), obtaining and/or reviewing separately otained hiistory, ordering medications,tests, procedures, indepentently interpreting results, counseling the patient and care coordination
[2025-04-20] MEDS: methylPREDNISolone SUCC 125 MG VIAL 80 MG IVP ×2 (22:23→22:30)
[2025-04-20] MEDS: CEFEPIME 2 GM in Normal Saline 100 ML IVPB (22:25)
[2025-04-20 22:52] LABS: INR 1.0 (0.9-1.1); Prothrombin Time 10.4 sec (9.1-11.1)
[2025-04-20 23:05] LABS: TSH 0.48 uIU/mL (0.36-3.74)
[2025-04-21] VITALS (116 sets, daily range): BP systolic 78–136; BP diastolic 57–94; PULSE 52–158; RESP 13–48; TEMP 31–36.8; O2SAT 72–98
[2025-04-21 00:29] LABS: COVID-19 PCR Negative (Negative); RSV PCR Negative (Negative)
[2025-04-21] MEDS: CEFEPIME 2 GM in Normal Saline 100 ML IVPB ×3 (00:52→19:10)
[2025-04-21] MEDS: Normal Saline 1,000 ML 125 ML IV ×2 (03:33→13:37)
[2025-04-21] MEDS: VANCOMYCIN 1,250 MG in Normal Saline 250 ML 167 MG IVPB (03:34)
[2025-04-21 05:49] LABS: HCT 38.6 % (40.0-50.0); HGB 12.6 g/dL (13.5-17.5); MCH 30.1 pg (27.0-33.0); MCHC 32.6 % (32.0-36.0); MCV 92 fL (80-95); MPV 8.7 fL (8.0-11.0); Platelet Count 242 10^3/uL (130-400); RBC 4.18 10^6/uL (4.36-5.78); RDW 14.0 % (11.8-14.1); RDW-SD 47.6 fL; WBC 18.63 10^3/uL (4.4-10.8)
[2025-04-21] MEDS: methylPREDNISolone SUCC 125 MG VIAL 80 MG IVP ×3 (06:04→22:27)
[2025-04-21 06:07] LABS: ALT 23 U/L (16-63); AST 29 U/L (15-37); Albumin 2.9 g/dL (3.4-5.0); Alkaline Phosphatase 82 U/L (46-116); Anion Gap 2.3 mmol/L (3-11); BUN 15 mg/dL (7-18); Bilirubin, Total 0.7 mg/dL (0.2-1.0); CO2 34.7 mmol/L (21.0-32.0); Calcium 9.3 mg/dL (8.5-10.1); Chloride 100 mmol/L (98-107); Estimated GFR 121.32 (mL/min/1.73m2); Glucose 126 mg/dL (74-106); Magnesium 2.1 mg/dL (1.8-2.4); Potassium 4.9 mmol/L (3.5-5.1); Sodium 137 mmol/L (136-145); Total Protein 7.0 g/dL (6.4-8.2)
--- NOTE | 2025-04-21 06:48 | PUCON_ITS ---
General Date Of Service Date of service: 04/21/25 Time of Service: 07:00 Requesting physician: Gabriel Cheng Reason for Consult: Respiratory failure Recommendations: Assessment: 1. Acute on chronic hypoxemic respiratory failure - has hx of ARDS and chronic fibrosis. CT chest this admission showed increased bilateral ground glass opacities - ddx: ARDS vs pneumonia vs aspiration pneumonitis. Inderlying connective tissue disease assicoated ILD is possible, but seems less likely given clinical context. Had hx IV drug use, so this could contribute as well. WBC elevated. 2. Chronic hypercapnic respiratory failure - due to underlying restrictive lung disease and chronic opoid use. 3. Polysubstance abuse - IV drug abuse and daily alcohol use 4. Prolonged QT interval - on methadone per records Recommendations: - will send off a serological workup for pneumonia - check HIV status - check procal level - start doxycycline for atypical pneumonia coverage. Continue vancomycin and cefepime for now - sputum culture - avoid all QT prolonging medications. 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 He is a poor historian, which limits history. He was brought to the staftt for worsening dyspnea/hypoxia. CTa chest showed bilateral ground glass opacities, superimposed on underlying fibrosis. Was negative for acute PE. Per nusring, patient self injected an unknown substance while in the ED. He denies this. Was placed on BiPAP and given benzodiazapine with improvement. He was admitted from 12/2024-02/2025 at [facility] for ARDS (suspected to be drug induced). Required prolonged mechanical ventilation and trachostomy placement. Was decauumulated in 01/2025. He is currently on 8 L O2. Denies cough or purulent sputum production. Denied recent fevers or URI symptoms. States his last alcoholic drink was the day prior to admission. Denied abdominal pain. No difficulty swallowing. Denied recent aspiration episdoes, nausea, or emesis. Review of Systems All systems reviewed & are unremarkable except as noted in HPI and below PFSH All Active Problems (Updated 04/21/25 @ 08:07 by Benjamín Dyer MD) Prolonged QT interval (Acute) Drug use disorder (Chronic) Pulmonary fibrosis (Acute) Shortness of breath (Acute) Chronic hypercapnic respiratory failure (Acute) Chronic hypoxic respiratory failure (Acute) Drug-induced diffuse interstitial pulmonary fibrosis (Chronic) ARDS/drug induced pulmonary fibrosis with [facility] admission 12/27/24-02/14/25 Anxiety (Chronic) Acute respiratory failure with hypoxia and hypercarbia (Acute) Alcohol withdrawal (Acute) Multifocal pneumonia (Acute) Abdominal cramping (Acute) Ileus (Acute) Acute hypokalemia (Acute) HTN (hypertension) (Chronic) Suicide ideation (Acute) Polysubstance abuse (Chronic) Opioid use disorder (Acute) Nicotine dependence (Chronic) Opioid dependence on agonist therapy (Chronic) Alcohol dependence (Chronic) Medical History Gram-positive cocci bacteremia Acute and chronic respiratory failure with hypercapnia Bacteremia Weak Pancreatitis DVT (deep venous thrombosis) History of osteomyelitis Hepatitis B Hepatitis C Depression Polysubstance abuse Family History Other Alcohol use disorder Depression Social History Smoking/Tobacco Use Status: Current every day Tobacco Type: cigarettes Tobacco: How many years used: 34 Smokeless tobacco user: chewing tobacco Smoking risk assessment performed?: Yes Alcohol Intake: current Alcohol Intake frequency: 0-2 drinks per day Alcohol type: hard liquor Drug use: Daily Substance use type: marijuana Details: Pt states he last used marijuana 10/23/24 Last used ETOH about 10/16/24 Housing: house Do you feel safe at home: Yes Do you feel safe in your relationship?: Yes Visit Medication and Allergies Active Medications Generic Name Dose Route Start Last Admin Trade Name Freq PRN Reason Stop Dose Admin Acetaminophen 650 mg 04/20/25 22:12 Acetaminophen 325 Mg Tab PO Q4H PRN PRN Acidophilus/Pectin 1 cap 04/21/25 08:30 Lactobacillus Acidophilus Cap PO DAILY [facility] Al Hydrox/Mg Hydrox/Simethicone 30 ml 04/20/25 22:12 Mylanta Suspension 30 Ml Cup PO Q2H PRN PRN Albuterol Sulfate 2.5 mg 04/20/25 22:12 Albuterol 2.5 Mg/3 Ml Inh Soln Vial UPD Q2H PRN PRN Albuterol/Ipratropium 3 ml 04/20/25 22:12 Albuterol/Ipratropium 3 Ml Upd Vial UPD Q6H PRN Aripiprazole 5 mg 04/21/25 08:30 Aripiprazole 5 Mg Tab PO DAILY [facility] Bacteriostatic Water 0 ml 04/20/25 22:14 Water,Injection,Bacteriostatic 30 Ml Vial IJ DIRECTED PRN Budesonide 0.5 mg 04/21/25 08:30 Budesonide 0.5 Mg/2 Ml Upd Vial IH BID [facility] Bupropion HCl 300 mg 04/21/25 08:30 Bupropion-Xl 150 Mg Tabcr PO DAILY [facility] Bupropion HCl 150 mg 04/21/25 08:30 Bupropion-Xl 150 Mg Tabcr PO DAILY [facility] Docusate Sodium 100 mg 04/20/25 22:12 Docusate Sodium 100 Mg Cap PO TID PRN PRN Enoxaparin Sodium 40 mg 04/21/25 08:30 Enoxaparin 40 Mg/0.4 Ml Syr SC DAILY [facility] Fluoxetine HCl 40 mg 04/21/25 08:30 Fluoxetine 20 Mg Cap PO DAILY [facility] Folic Acid 1 mg 04/21/25 08:30 Folic Acid 1 Mg Tab PO DAILY [facility] Gabapentin 600 mg 04/21/25 08:30 Gabapentin 600 Mg Tab PO TID [facility] Guaifenesin 1,200 mg 04/21/25 08:30 Guaifenesin 600 Mg Tabcr PO BID [facility] Vancomycin HCl 1,250 mg/ 250 mls @ 167 mls/hr 04/21/25 02:00 04/21/25 06:08 Sodium Chloride IVPB Infused Q12H ISAK Infusion Cefepime HCl 2 gm/ Sodium 100 mls @ 200 mls/hr 04/21/25 00:00 04/21/25 06:07 Chloride IVPB Infused Q8H [facility] Infusion Sodium Chloride 1,000 mls @ 125 mls/hr 04/21/25 03:00 04/21/25 03:33 Saline 1000ml Bag IV 125 mls/hr INFUSION ISAK Administration IV Miscellaneous Supplies 1 each 04/20/25 19:45 Iv Access IV DIRECTED ISAK Losartan Potassium 50 mg 04/21/25 08:30 Losartan 50 Mg Tab PO DAILY [facility] Magnesium Hydroxide 30 ml 04/20/25 22:12 Milk Of Magnesia 30 Ml Cup PO DAILY PRN PRN Methadone HCl 100 mg 04/21/25 08:30 Methadone Liquid 10 Mg/Ml PO DAILY [facility] Methylprednisolone Sodium Succinate 80 mg 04/20/25 22:00 04/21/25 06:04 Methylprednisolone Succ 125 Mg Vial IVP 80 mg Q8H ISAK Administration Nicotine 21 mg 04/20/25 22:12 Nicotine 21 Mg/24 Hr Patch TD DAILY PRN PRN Polyethylene Glycol 17 gm 04/20/25 22:12 Polyethylene Glycol 3350 17 Gm Packet PO DAILY PRN PRN Constipation Sodium Chloride 0 ml 04/20/25 19:38 Normal Saline Flush 10 Ml Syr IVP PRN PRN Sodium Chloride 0 ml 04/20/25 20:00 Normal Saline Flush 10 Ml Syr IVP BID ISAK Sodium Chloride 0 ml 04/20/25 19:38 Normal Saline 10 Ml Vial IJ DIRECTED PRN Thiamine HCl 100 mg 04/21/25 08:30 Thiamine 100 Mg Tab PO DAILY [facility] Vitamin B Complex/Vitamin C 1 tab 04/21/25 08:30 Vitamins B Comp W/C Tab PO DAILY [facility] Allergies No Known Allergies Allergy (Verified 04/20/25 19:23) Exam Narrative Exam Narrative: General: alert, no acute distress Head: normocephalic ENT: no stridor, trachea midline CV: normal rate, regular rhythm Respiratory: no wheezing, no crackles, no rhonchi, no prolonged expiration GI: abd soft, non-tender, non-distended Extremities: no edema, no digital clubbing Neuro: no focal deficits Skin: excoriated lesion on legs, mostly healed. Possible injection sit on foot Psych: normal affect Results Last Vital Signs Temp 36.4 C L 04/21/25 01:13 Pulse 59 L 04/21/25 06:10 Resp 18 04/21/25 06:10 BP 108/64 04/21/25 05:02 Pulse Ox 94 04/21/25 06:11 Labs 04/21/25 05:44 04/21/25 05:44 Labs: Laboratory Results - last 24 hr 04/20/25 04/20/25 04/20/25 19:45 20:08 23:23 WBC 20.47 H RBC 4.65 Hgb 13.9 Hct 42.9 MCV 92 MCH 29.9 MCHC 32.4 RDW 14.0 Plt Count 275 MPV 8.8 Immature Gran % 0.5 Neutrophils % 93.8 Lymphocytes % 1.6 Monocytes % 3.9 Eosinophils % 0.0 Basophils % 0.2 Nucleated RBC % 0.0 Absolute Neutrophils 19.20 H Absolute Lymphocytes 0.33 L Absolute Monocytes 0.80 Absolute Eosinophils 0.00 Absolute Basophils 0.04 PT 10.4 INR 1.0 VBG pH 7.37 VBG pCO2 59 H VBG pO2 46 VBG HCO3 34 H VBG Total CO2 30 H VBG O2 Saturation 80 VBG Base Excess 9 H VBG Lactate 3.0 H* Sodium 137 Potassium 4.6 Chloride 97 L Carbon Dioxide 31.5 Anion Gap 8.5 BUN 9 Creatinine 0.9 Est GFR (CKD-EPI 2020) 107.33 Glucose 152 H Calcium 9.2 Magnesium 1.8 Total Bilirubin 0.9 AST 45 H ALT 29 Alkaline Phosphatase 99 Total Protein 8.1 Albumin 3.6 TSH 0.48 Urine Opiates Screen Negative Urine Methadone Screen Positive A Ur Barbiturates Screen Negative Ur Tricyclics Screen Negative Ur Amphetamines Screen Negative U Benzodiazepines Scrn Negative Urine Cocaine Screen Negative Ur THC Screen Negative COVID-19 Source Nasopharynx SARS-CoV-2 (PCR) Negative Influenza Type A (PCR) Negative Influenza Type B (PCR) Negative RSV (PCR) Negative 04/21/25 05:44 WBC 18.63 H RBC 4.18 L Hgb 12.6 L Hct 38.6 L MCV 92 MCH 30.1 MCHC 32.6 RDW 14.0 Plt Count 242 MPV 8.7 Immature Gran % Neutrophils % Lymphocytes % Monocytes % Eosinophils % Basophils % Nucleated RBC % Absolute Neutrophils Absolute Lymphocytes Absolute Monocytes Absolute Eosinophils Absolute Basophils PT INR VBG pH VBG pCO2 VBG pO2 VBG HCO3 VBG Total CO2 VBG O2 Saturation VBG Base Excess VBG Lactate 1.0 Sodium 137 Potassium 4.9 Chloride 100 Carbon Dioxide 34.7 H Anion Gap 2.3 L BUN 15 Creatinine 0.6 L Est GFR (CKD-EPI 2020) 121.32 Glucose 126 H Calcium 9.3 Magnesium 2.1 Total Bilirubin 0.7 AST 29 ALT 23 Alkaline Phosphatase 82 Total Protein 7.0 Albumin 2.9 L TSH Urine Opiates Screen Urine Methadone Screen Ur Barbiturates Screen Ur Tricyclics Screen Ur Amphetamines Screen U Benzodiazepines Scrn Urine Cocaine Screen Ur THC Screen COVID-19 Source SARS-CoV-2 (PCR) Influenza Type A (PCR) Influenza Type B (PCR) RSV (PCR) Imaging CT scan - chest: report reviewed and image reviewed
--- NOTE | 2025-04-21 07:00 | RT.EKG_ITS ---
APPROVED REPORT Exam: Resting ECG Reason for Exam: provider requests Patient Location: I HR:59 bpm ECG Measurements Heart Rate 59 AXIS [place] 153 P 18 QRSd 97 QRS -4 QT 626 T 0 QTc 621 Conclusion Sinus rhythm...normal P axis, V-rate 50- 99 Left ventricular hypertrophy...multiple voltage criteria Prolonged QT interval...QTc >500mS Some motion artifact
--- NOTE | 2025-04-21 07:43 | RESPIRATORY ---
Pt's current baseline is 4L at rest, 8L with ambulation via nasal cannula. Pt has O2 tank from home here with him at the hospital. Tank is currently being held in ICU Director Yeimy's office for safety, and is noted to currently be at 1500psi. DME for O2 is [employer].
[2025-04-21] MEDS: MAGNESIUM SULFATE 2 GM/50 ML BAG IV_INF (08:33)
[2025-04-21] MEDS: CALCIUM GLUCONATE in NaCl 1 GM/50 ML BAG IVPB (08:33)
--- NOTE | 2025-04-21 08:50 | PDOC.CMIN ---
Date of service: 04/21/25 Time of Service: 08:50 Care Management Initial Assmt Initial Assessment Reason for Hospitalization: pneumonia Functional Status/Living Situation Patient Presentation: William was admitted with pneumonia and respiratory failure. He is on nasal oxygen at 4-8 L/min at baseline at home. William has been living at [facility] on the waiver program. According to ICU staff, his mother called this morning and stated that his belongings have been removed from his room and he will not have a place to live. That has not been confirmed, and, if true, it is not clear why the eviction occurred. William has a 16 year old son Stef who lives with William's aunt and uncle and they have temporary guardianship of him. William was lying in bed in the ICU when CM met with him. He was confused and unable to engage in conversation as he had received 5 Mg of Diazepam IV a short time before. William verbalized wanting to leave AMA this morning but after experiencing an episode of severe SOB and dyspnea, decided to remain hospitalized. Town of Residence: [place] Resides with: Alone Significant Other/Family: Local Employment Status: Disabled Instrumental Activities of Daily Living (ADLs): Independent Medications Medication Management: No Issues/Barriers identified Physical Functioning/Mobility Assistive Device: home oxygen Advance Directives Advance Directives: Do you have an Advance Directive: N 12/07/15, 14:45 AD On File at [facility]: N 02/01/13, 20:37 Date Asked 04/20/25 04/20/25, 12:16 AD Date Reviewed COLST On File at [facility] COLST Date Scanned Code Status Resuscitation Status Full Code Portal Pt does not currently have a portal and education provided: Yes Insurance Coverage/Financial Issues Insurance: Medicaid Care Team Visit Care Team Role Provider Type Gabriel Cheng MD MD [facility] STAFF PHYSICIAN Renny Rollins Primary Care Provider NON-[facility] STAFF PHYSICIAN Regino Del Toro MD Emergency Provider [facility] STAFF PHYSICIAN Leon Colindres Admit Provider NON-[facility] STAFF PHYSICIAN Attending Provider Discharge Potential Discharge Needs: PCP F/U Appt Anticipated Barriers to Discharge: None Identified Patient/Family Education Needs: Review discharge instructions, discuss Ask Me Three Transportation: Private vehicle Plan: Anticipate William will be discharged with no new services. He will follow up with his community providers and plan of care and transport with [facility]. CM will follow and continue to assess for discharge needs. Social Determinants of Health Screening Will the Patient Participate in the Screening?: Declined to provide PFSH All Active Problems (Updated 04/21/25 @ 08:07 by Benjamín Dyer MD) Prolonged QT interval (Acute) Drug use disorder (Chronic) Pulmonary fibrosis (Acute) Shortness of breath (Acute) Chronic hypercapnic respiratory failure (Acute) Chronic hypoxic respiratory failure (Acute) Drug-induced diffuse interstitial pulmonary fibrosis (Chronic) ARDS/drug induced pulmonary fibrosis with [facility] admission 12/27/24-02/14/25 Anxiety (Chronic) Acute respiratory failure with hypoxia and hypercarbia (Acute) Alcohol withdrawal (Acute) Multifocal pneumonia (Acute) Abdominal cramping (Acute) Ileus (Acute) Acute hypokalemia (Acute) HTN (hypertension) (Chronic) Suicide ideation (Acute) Polysubstance abuse (Chronic) Opioid use disorder (Acute) Nicotine dependence (Chronic) Opioid dependence on agonist therapy (Chronic) Alcohol dependence (Chronic) Medical History Gram-positive cocci bacteremia Acute and chronic respiratory failure with hypercapnia Bacteremia Weak Pancreatitis DVT (deep venous thrombosis) History of osteomyelitis Hepatitis B Hepatitis C Depression Polysubstance abuse Family History Other Alcohol use disorder Depression Social History Smoking/Tobacco Use Status: Current every day Tobacco Type: cigarettes Tobacco: How many years used: 34 Smokeless tobacco user: chewing tobacco Smoking risk assessment performed?: Yes Alcohol Intake: current Alcohol Intake frequency: 0-2 drinks per day Alcohol type: hard liquor Drug use: Daily Substance use type: marijuana Details: Pt states he last used marijuana 10/23/24 Last used ETOH about 10/16/24 Housing: house Do you feel safe at home: Yes Do you feel safe in your relationship?: Yes
[2025-04-21 09:03] LABS: Procalcitonin 0.20 ng/mL
[2025-04-21] MEDS: buPROPion-XL 150 MG TABCR 300 MG PO (09:15)
[2025-04-21] MEDS: guaiFENesin 600 MG TABCR 1200 MG PO ×2 (09:15→19:44)
--- NOTE | 2025-04-21 09:15 | RT.EKG_ITS ---
APPROVED REPORT Exam: Resting ECG Reason for Exam: interval QT prolong, do 1hr after Mg CaGlu given Patient Location: I HR:67 bpm ECG Measurements Heart Rate 67 AXIS [place] 147 P 22 QRSd 91 QRS 1 QT 585 T 0 QTc 618 Conclusion Sinus rhythm...normal P axis, V-rate 50- 99 Left ventricular hypertrophy...multiple voltage criteria Prolonged QT interval...QTc >500mS
[2025-04-21] MEDS: Thiamine 100 MG TAB PO (09:16)
[2025-04-21] MEDS: ARIPiprazole 5 MG TAB PO (09:16)
[2025-04-21] MEDS: Vitamins B Comp w/C TAB 1 TAB PO (09:16)
[2025-04-21] MEDS: Lactobacillus Acidophilus CAP 1 CAP PO (09:16)
[2025-04-21] MEDS: Folic Acid 1 MG TAB PO (09:16)
[2025-04-21] MEDS: Gabapentin 600 MG TAB PO ×3 (09:16→19:44)
[2025-04-21] MEDS: Normal Saline Flush 10 ML SYR IVP ×2 (09:40→19:45)
[2025-04-21] MEDS: DOXYCYCLINE 100 MG in Normal Saline 100 ML IVPB ×2 (09:41→19:45)
[2025-04-21] MEDS: Albuterol 2.5 MG/3 ML INH SOLN VIAL UPD (10:35)
[2025-04-21] MEDS: Budesonide 0.5 MG/2 ML UPD VIAL IH ×2 (10:52→19:45)
[2025-04-21] MEDS: diazePAM 10 MG/2 ML SYR 5 MG IVP ×2 (11:54→20:55)
--- NOTE | 2025-04-21 12:15 | RT.EKG_ITS ---
APPROVED REPORT Exam: Resting ECG Reason for Exam: qtc prolong Patient Location: I HR:72 bpm ECG Measurements Heart Rate 72 AXIS [place] 146 P 11 QRSd 85 QRS -8 QT 533 T -10 QTc 584 Conclusion Sinus rhythm...normal P axis, V-rate 50- 99 Left ventricular hypertrophy...multiple voltage criteria Prolonged QT interval...QTc >500mS
--- NOTE | 2025-04-21 16:51 | PGE_ITS ---
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 He is currently on room air. Exam Narrative Exam Narrative: General: This is a chronically ill-appearing man with flattened affect HEENT: Normocephalic, atraumatic, poor dentition CV: RRR Resp: Bilateral diffuse rales, good movement of air without increased work of breathing on 4L Abd: NTND +NBS Neuro: Awake and alert without focal deficits Objective Last Vital Signs Temp 36.8 C 04/21/25 08:13 Pulse 74 04/21/25 12:16 Resp 24 04/21/25 12:16 BP 110/72 04/21/25 12:16 Pulse Ox 96 04/21/25 13:19 Laboratory Results - last 24 hr 04/20/25 04/20/25 04/20/25 19:45 20:08 23:23 WBC 20.47 H RBC 4.65 Hgb 13.9 Hct 42.9 MCV 92 MCH 29.9 MCHC 32.4 RDW 14.0 Plt Count 275 MPV 8.8 Immature Gran % 0.5 Neutrophils % 93.8 Lymphocytes % 1.6 Monocytes % 3.9 Eosinophils % 0.0 Basophils % 0.2 Nucleated RBC % 0.0 Absolute Neutrophils 19.20 H Absolute Lymphocytes 0.33 L Absolute Monocytes 0.80 Absolute Eosinophils 0.00 Absolute Basophils 0.04 PT 10.4 INR 1.0 VBG pH 7.37 VBG pCO2 59 H VBG pO2 46 VBG HCO3 34 H VBG Total CO2 30 H VBG O2 Saturation 80 VBG Base Excess 9 H VBG Lactate 3.0 H* Sodium 137 Potassium 4.6 Chloride 97 L Carbon Dioxide 31.5 Anion Gap 8.5 BUN 9 Creatinine 0.9 Est GFR (CKD-EPI 2020) 107.33 Glucose 152 H Calcium 9.2 Magnesium 1.8 Total Bilirubin 0.9 AST 45 H ALT 29 Alkaline Phosphatase 99 Total Protein 8.1 Albumin 3.6 Procalcitonin TSH 0.48 Urine Opiates Screen Negative Urine Methadone Screen Positive A Ur Barbiturates Screen Negative Ur Tricyclics Screen Negative Ur Amphetamines Screen Negative U Benzodiazepines Scrn Negative Urine Cocaine Screen Negative Ur THC Screen Negative COVID-19 Source Nasopharynx SARS-CoV-2 (PCR) Negative Influenza Type A (PCR) Negative Influenza Type B (PCR) Negative RSV (PCR) Negative 04/21/25 04/21/25 05:44 05:54 WBC 18.63 H RBC 4.18 L Hgb 12.6 L Hct 38.6 L MCV 92 MCH 30.1 MCHC 32.6 RDW 14.0 Plt Count 242 MPV 8.7 Immature Gran % Neutrophils % Lymphocytes % Monocytes % Eosinophils % Basophils % Nucleated RBC % Absolute Neutrophils Absolute Lymphocytes Absolute Monocytes Absolute Eosinophils Absolute Basophils PT INR VBG pH VBG pCO2 VBG pO2 VBG HCO3 VBG Total CO2 VBG O2 Saturation VBG Base Excess VBG Lactate 1.0 Sodium 137 Potassium 4.9 Chloride 100 Carbon Dioxide 34.7 H Anion Gap 2.3 L BUN 15 Creatinine 0.6 L Est GFR (CKD-EPI 2020) 121.32 Glucose 126 H Calcium 9.3 Magnesium 2.1 Total Bilirubin 0.7 AST 29 ALT 23 Alkaline Phosphatase 82 Total Protein 7.0 Albumin 2.9 L Procalcitonin 0.20 TSH Urine Opiates Screen Urine Methadone Screen Ur Barbiturates Screen Ur Tricyclics Screen Ur Amphetamines Screen U Benzodiazepines Scrn Urine Cocaine Screen Ur THC Screen COVID-19 Source SARS-CoV-2 (PCR) Influenza Type A (PCR) Influenza Type B (PCR) RSV (PCR) Time Spent with Patient Time Spent with Patient: 35-49 minutes Time was spent: preparing to see the patient(eg.review tests), obtaining and/or reviewing separately otained hiistory, ordering medications,tests, procedures, referring, communicating with other health healthcare customer service, indepentently interpreting results, counseling the patient and care coordination
[2025-04-21] MEDS: VANCOMYCIN/WATER (PEG) 1.5 GM/300 ML BAG IV (17:27)
[2025-04-21 19:25] LABS: HIV-1/2 Ag & Ab Screen Negative (Negative)
[2025-04-21 19:42] LABS: Legionella Ag Detection Urine Negative (Negative)
--- NOTE | 2025-04-21 23:59 | NUR.NOTE ---
Nursing Note:In pt chart to obtain V # in regards to SQSS
[2025-04-22] VITALS (44 sets, daily range): BP systolic 109–175; BP diastolic 75–149; PULSE 71–127; RESP 19–53; TEMP 36.4–37.7; O2SAT 76–99
[2025-04-22] MEDS: Normal Saline 1,000 ML 125 ML IV (01:01)
[2025-04-22] MEDS: CEFEPIME 2 GM in Normal Saline 100 ML IVPB ×3 (01:59→22:39)
[2025-04-22] MEDS: VANCOMYCIN/WATER (PEG) 1.5 GM/300 ML BAG IV ×2 (04:29→16:46)
[2025-04-22] MEDS: methylPREDNISolone SUCC 125 MG VIAL 80 MG IVP ×3 (06:26→21:22)
[2025-04-22] MEDS: buPROPion-XL 150 MG TABCR 300 MG PO (07:36)
[2025-04-22] MEDS: guaiFENesin 600 MG TABCR 1200 MG PO ×2 (07:37→20:35)
[2025-04-22] MEDS: ARIPiprazole 5 MG TAB PO (07:37)
[2025-04-22] MEDS: Lactobacillus Acidophilus CAP 1 CAP PO (07:37)
[2025-04-22] MEDS: Vitamins B Comp w/C TAB 1 TAB PO (07:37)
[2025-04-22] MEDS: Folic Acid 1 MG TAB PO (07:38)
[2025-04-22] MEDS: Thiamine 100 MG TAB PO (07:38)
[2025-04-22] MEDS: DOXYCYCLINE 100 MG in Normal Saline 100 ML IVPB ×2 (07:38→21:21)
[2025-04-22] MEDS: Losartan 50 MG TAB PO (07:38)
[2025-04-22] MEDS: Gabapentin 600 MG TAB PO ×3 (07:38→20:35)
[2025-04-22] MEDS: Enoxaparin 40 MG/0.4 ML SYR SC (07:39)
[2025-04-22] MEDS: Budesonide 0.5 MG/2 ML UPD VIAL IH ×2 (07:47→19:48)
[2025-04-22] MEDS: diazePAM 10 MG/2 ML SYR 5 MG IVP (08:01)
[2025-04-22] MEDS: Normal Saline Flush 10 ML SYR IVP ×3 (10:00→23:32)
--- NOTE | 2025-04-22 10:12 | PDOC.CMPRO ---
Date of service: 04/22/25 Time of Service: 10:12 Care Management Progress Note Progress Note Text Progress Note Text: William was lying in bed when CM met with him. He stated that he had had a difficult morning as he lost IV access and was unable to receive any of his medications. He informed CM that he felt like he was going to this morning as he was unable to breathe. He had an episode where he became anxious and tachypneic, tachycardic and dropped his O2 saturation to 77%. When asked how he is feeling now he answered sick and miserable. He informed CM that he has been on methadone for 14 years but they won't give it to him because it is doing something bad to his heart. He believes that if he doesn't get his methadone or something for the withdrawal symptoms, he will . He stated If I am dying, I want to happy, not miserable like this. This afternoon William had a mid-line inserted and he received his dose of phenobarbital and restarted his other meds such as his antibiotics. William stated that he is staying at the [facility] and has his room for another 14 days. CM did not comment on what his mother shared yesterday about his belongings being removed from his room leaving him essentially homeless. That conversation can happen when William's condition is more stable.. Discharge Potential Discharge Needs: PCP F/U Appt Anticipated Barriers to Discharge: Medical Status Patient/Family Education Needs: Review discharge instructions, discuss Ask Me Three Transportation: [facility] Plan: Anticipate William will be discharged with no new services. He will follow up with his community providers and plan of care and transport with [facility]. CM will follow and continue to assess for discharge needs. Social Determinants of Health Screening Will the Patient Participate in the Screening?: Declined to provide
[2025-04-22 10:38] LABS: ALT 21 U/L (16-63); AST 27 U/L (15-37); Albumin 2.6 g/dL (3.4-5.0); Alkaline Phosphatase 81 U/L (46-116); Anion Gap 6.0 mmol/L (3-11); BUN 14 mg/dL (7-18); Bilirubin, Total 0.4 mg/dL (0.2-1.0); CO2 30.0 mmol/L (21.0-32.0); Calcium 8.9 mg/dL (8.5-10.1); Chloride 104 mmol/L (98-107); Estimated GFR 128.18 (mL/min/1.73m2); Glucose 118 mg/dL (74-106); Magnesium 1.7 mg/dL (1.8-2.4); Potassium 4.2 mmol/L (3.5-5.1); Sodium 140 mmol/L (136-145); Total Protein 6.4 g/dL (6.4-8.2)
[2025-04-22 10:52] LABS: Abs Immature Grans 0.26 10^3/uL (0.0-0.06); HCT 38.0 % (40.0-50.0); HGB 12.2 g/dL (13.5-17.5); Immature Grans % 1.1 %; MCH 30.3 pg (27.0-33.0); MCHC 32.1 % (32.0-36.0); MCV 95 fL (80-95); MPV 8.8 fL (8.0-11.0); Platelet Count 281 10^3/uL (130-400); RBC 4.02 10^6/uL (4.36-5.78); RDW 14.6 % (11.8-14.1); RDW-SD 50.7 fL; WBC 23.47 10^3/uL (4.4-10.8)
[2025-04-22 11:58] LABS: Fentanyl Scr w/Rfx Confirm Positive ng/mL (<1)
--- NOTE | 2025-04-22 14:05 | PGE_ITS ---
Date of Service Date of service: 04/22/25 Time of Service: 09:00 Assessment and Plan Assessment and plan (1) Prolonged QT interval: Status: Resolved Assessment and plan: QTc > 600 on April 21 after he apparently ingested methadone from a visitor's delivery of a box from home Mg level within normal limits Gave Mg 2mg and CaGlu Hold methadone, hold other QT prolongers Resolved as of April 21 evening (2) Acute respiratory failure with hypoxia and hypercarbia: Status: Acute Assessment and plan: No longer needing bipap, off high flow Needing O2 by mask intermittently, likely due to withdrawal agitation Started on phenobarbital (3) 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 Galo is continuing to have respiratory distress requiring supplemental oxygen above his home level. He denies additional use of methadone since yesterday. Exam Narrative Exam Narrative: General: This is a chronically ill-appearing man with flattened affect, agitated HEENT: Normocephalic, atraumatic, poor dentition CV: RRR Resp: Bilateral diffuse rales, increased work of breathing noted on 4L, now on mask Abd: NTND +NBS Neuro: Awake and alert without focal deficits Objective Last Vital Signs Temp 37.3 C 04/22/25 12:25 Pulse 80 04/22/25 12:25 Resp 23 04/22/25 12:25 BP 118/82 04/22/25 12:25 Pulse Ox 95 04/22/25 12:25 Laboratory Results - last 24 hr 04/21/25 04/21/25 04/22/25 05:44 08:29 01:00 WBC RBC Hgb Hct MCV MCH MCHC RDW Plt Count MPV Immature Gran % Neutrophils % Lymphocytes % Monocytes % Eosinophils % Basophils % Nucleated RBC % Absolute Neutrophils Absolute Lymphocytes Absolute Monocytes Absolute Eosinophils Absolute Basophils Sodium Potassium Chloride Carbon Dioxide Anion Gap BUN Creatinine Est GFR (CKD-EPI 2020) Glucose Calcium Magnesium Total Bilirubin AST ALT Alkaline Phosphatase Total Protein Albumin Vancomycin Trough Cancelled HIV 1&2 Ag/Ab, 4th Gen Negative Urine Legionella Ag Negative 04/22/25 04/22/25 09:50 15:45 WBC 23.47 H RBC 4.02 L Hgb 12.2 L Hct 38.0 L MCV 95 MCH 30.3 MCHC 32.1 RDW 14.6 H Plt Count 281 MPV 8.8 Immature Gran % 1.1 Neutrophils % 90.6 Lymphocytes % 1.3 Monocytes % 6.9 Eosinophils % 0.0 Basophils % 0.1 Nucleated RBC % 0.0 Absolute Neutrophils 21.26 H Absolute Lymphocytes 0.31 L Absolute Monocytes 1.62 H Absolute Eosinophils 0.00 Absolute Basophils 0.02 Sodium 140 Potassium 4.2 Chloride 104 Carbon Dioxide 30.0 Anion Gap 6.0 BUN 14 Creatinine 0.5 L Est GFR (CKD-EPI 2020) 128.18 Glucose 118 H Calcium 8.9 Magnesium 1.7 L Total Bilirubin 0.4 AST 27 ALT 21 Alkaline Phosphatase 81 Total Protein 6.4 Albumin 2.6 L Vancomycin Trough Cancelled HIV 1&2 Ag/Ab, 4th Gen Urine Legionella Ag Time Spent with Patient Time Spent with Patient: 35-49 minutes Time was spent: preparing to see the patient(eg.review tests), obtaining and/or reviewing separately otained hiistory, ordering medications,tests, procedures, referring, communicating with other health critical care nurse practitioner, indepentently interpreting results, counseling the patient and care coordination
[2025-04-22 15:06] LABS: Vancomycin, Trough 14.9 ug/mL (10.0-20.0)
[2025-04-22] MEDS: PHENobarbital 140 MG in Normal Saline 50 ML 100 MG IVPB ×2 (18:29→20:36)
[2025-04-22] MEDS: Normal Saline 500 ML 30 ML IV (18:30)
[2025-04-22] MEDS: PHENobarbital 130 MG/ML VIAL IVP (23:32)
[2025-04-23] VITALS (39 sets, daily range): BP systolic 103–195; BP diastolic 67–104; PULSE 54–112; RESP 16–41; TEMP 32–37.4; O2SAT 85–97
[2025-04-23] MEDS: Normal Saline Flush 10 ML SYR IVP ×8 (00:06→09:04)
[2025-04-23] MEDS: PHENobarbital 130 MG/ML VIAL IVP ×7 (00:06→11:53)
--- NOTE | 2025-04-23 00:45 | RT.EKG_ITS ---
APPROVED REPORT Exam: Resting ECG Reason for Exam: New chest pain Patient Location: I HR:74 bpm ECG Measurements Heart Rate 74 AXIS CA 141 P 18 QRSd 85 QRS -7 QT 522 T -1 QTc 580 Conclusion Sinus rhythm...normal P axis, V-rate 50- 99 Probable left atrial enlargement...P >50mS, <-0.10mV V1 Left ventricular hypertrophy...multiple voltage criteria Prolonged QT interval...QTc >500mS Baseline wander in lead(s) V4
[2025-04-23 01:24] LABS: BE (Venous) 8 mmol/L (-2-3); HCO3 (Venous) 33 mmol/L (23-28); O2 Sat (Venous) 88 %; TCO2 (Venous) 30 mmol/L (24-29); pCO2 (Venous) 58 mmHg (41-51); pO2 (Venous) 55 mmHg
[2025-04-23] MEDS: Albuterol/Ipratropium 3 ML UPD VIAL UPD ×2 (02:50→08:05)
[2025-04-23] MEDS: VANCOMYCIN/WATER (PEG) 1.5 GM/300 ML BAG IV ×2 (03:51→15:36)
[2025-04-23] MEDS: CEFEPIME 2 GM in Normal Saline 100 ML IVPB ×3 (05:59→22:48)
[2025-04-23] MEDS: methylPREDNISolone SUCC 125 MG VIAL 80 MG IVP (06:00)
[2025-04-23 06:52] LABS: Abs Immature Grans 0.18 10^3/uL (0.0-0.06); HCT 38.5 % (40.0-50.0); HGB 12.3 g/dL (13.5-17.5); Immature Grans % 0.9 %; MCH 30.6 pg (27.0-33.0); MCHC 31.9 % (32.0-36.0); MCV 96 fL (80-95); MPV 8.9 fL (8.0-11.0); Platelet Count 275 10^3/uL (130-400); RBC 4.02 10^6/uL (4.36-5.78); RDW 14.3 % (11.8-14.1); RDW-SD 50.2 fL; WBC 19.48 10^3/uL (4.4-10.8)
[2025-04-23 07:33] LABS: RBC Morphology Normal
[2025-04-23 07:58] LABS: ALT 22 U/L (16-63); AST 26 U/L (15-37); Albumin 2.4 g/dL (3.4-5.0); Alkaline Phosphatase 83 U/L (46-116); Anion Gap 2.6 mmol/L (3-11); BUN 10 mg/dL (7-18); Bilirubin, Total 0.5 mg/dL (0.2-1.0); CO2 34.4 mmol/L (21.0-32.0); Calcium 8.9 mg/dL (8.5-10.1); Chloride 100 mmol/L (98-107); Estimated GFR 128.18 (mL/min/1.73m2); Glucose 109 mg/dL (74-106); Magnesium 1.6 mg/dL (1.8-2.4); Potassium 4.1 mmol/L (3.5-5.1); Sodium 137 mmol/L (136-145); Total Protein 6.3 g/dL (6.4-8.2)
[2025-04-23] MEDS: Budesonide 0.5 MG/2 ML UPD VIAL IH ×2 (08:11→19:25)
[2025-04-23] MEDS: DOXYCYCLINE 100 MG in Normal Saline 100 ML IVPB ×2 (09:02→20:04)
[2025-04-23] MEDS: Enoxaparin 40 MG/0.4 ML SYR SC (09:04)
[2025-04-23] MEDS: Gabapentin 600 MG TAB PO ×3 (09:05→20:07)
[2025-04-23] MEDS: buPROPion-XL 150 MG TABCR 300 MG PO (09:05)
[2025-04-23] MEDS: dexmedeTOMidine IN 0.9 % NACL 400 MCG/100 ML BTL 8.42 MCG IV (12:52)
[2025-04-23] MEDS: methylPREDNISolone SUCC 40 MG VIAL IVP ×2 (13:32→22:47)
--- NOTE | 2025-04-23 16:08 | W.PM.PROGNOT ---
Date of Service Date of service: 04/23/25 Time of Service: 08:00 Assessment and Plan Assessment and plan (1) Acute respiratory failure with hypoxia and hypercarbia: Status: Acute Assessment and plan: No longer needing bipap Attempting high flow as tolerated His respiratory status is very volatile. With agitation he can quickly fall to 60%. Very challenging to reach equilibrium. 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 Galo had overnight episodes of dyspnea and agitation. He has been taken off phenobarbital and benzos and started on precedex. Today he has expressed his wishes that he be made DNR/DNI. Exam Narrative Exam Narrative: General: This is a chronically ill-appearing man with flattened affect, agitated HEENT: Normocephalic, atraumatic, poor dentition CV: RRR Resp: Bilateral diffuse rales, increased work of breathing noted on 4L via HFNC Abd: NTND +NBS Neuro: Awake and alert without focal deficits Objective Last Vital Signs Temp 37.2 C 04/23/25 13:35 Pulse 92 H 04/23/25 14:02 Resp 38 H 04/23/25 14:02 BP 134/80 04/23/25 14:02 Pulse Ox 97 04/23/25 15:44 Laboratory Results - last 24 hr 04/21/25 04/23/25 04/23/25 08:29 01:20 05:40 WBC 19.48 H RBC 4.02 L Hgb 12.3 L Hct 38.5 L MCV 96 H MCH 30.6 MCHC 31.9 L RDW 14.3 H Plt Count 275 MPV 8.9 Immature Gran % 0.9 Neutrophils % 85.7 Lymphocytes % 4.8 Monocytes % 8.4 Eosinophils % 0.0 Basophils % 0.2 Nucleated RBC % 0.0 Absolute Neutrophils 16.69 H Absolute Lymphocytes 0.94 L Absolute Monocytes 1.64 H Absolute Eosinophils 0.00 Absolute Basophils 0.04 RBC Morphology Normal VBG pH 7.37 VBG pCO2 58 H VBG pO2 55 VBG HCO3 33 H VBG Total CO2 30 H VBG O2 Saturation 88 VBG Base Excess 8 H Sodium 137 Potassium 4.1 Chloride 100 Carbon Dioxide 34.4 H Anion Gap 2.6 L BUN 10 Creatinine 0.5 L Est GFR (CKD-EPI 2020) 128.18 Glucose 109 H Calcium 8.9 Magnesium 1.6 L Total Bilirubin 0.5 AST 26 ALT 22 Alkaline Phosphatase 83 Total Protein 6.3 L Albumin 2.4 L Urine Fentanyl Screen Positive A Time Spent with Patient Time Spent with Patient: 35-49 minutes Time was spent: preparing to see the patient(eg.review tests), obtaining and/or reviewing separately otained hiistory, ordering medications,tests, procedures, referring, communicating with other health critical care transport nurse, indepentently interpreting results, counseling the patient and care coordination
[2025-04-23] MEDS: Acetaminophen 325 MG TAB 650 MG PO (20:06)
[2025-04-23] MEDS: guaiFENesin 600 MG TABCR 1200 MG PO (20:07)
[2025-04-23] MEDS: dexmedeTOMidine IN 0.9 % NACL 400 MCG/100 ML BTL 16.84 MCG IV (20:09)
[2025-04-24] VITALS (26 sets, daily range): BP systolic 113–196; BP diastolic 66–122; PULSE 53–98; RESP 18–40; TEMP 31–37.3; O2SAT 89–96
[2025-04-24] MEDS: dexmedeTOMidine IN 0.9 % NACL 400 MCG/100 ML BTL 21.05 MCG IV (01:07)
[2025-04-24] MEDS: MAGNESIUM SULFATE 2 GM/50 ML BAG IV_INF (01:15)
[2025-04-24] MEDS: MORPHine 4 MG/ML SYR IVP ×4 (03:18→09:59)
[2025-04-24] MEDS: Albuterol/Ipratropium 3 ML UPD VIAL UPD ×2 (03:20→20:00)
[2025-04-24] MEDS: VANCOMYCIN/WATER (PEG) 1.5 GM/300 ML BAG IV (04:15)
[2025-04-24] MEDS: cloNIDine 0.1 MG TAB 0.2 MG PO (04:15)
[2025-04-24] MEDS: Acetaminophen 325 MG TAB 650 MG PO (04:45)
[2025-04-24] MEDS: dexmedeTOMidine IN 0.9 % NACL 400 MCG/100 ML BTL 31.575 MCG IV ×4 (04:47→13:05)
[2025-04-24] MEDS: Normal Saline 500 ML 20 ML IV (04:48)
[2025-04-24] MEDS: methylPREDNISolone SUCC 40 MG VIAL IVP (06:31)
[2025-04-24] MEDS: CEFEPIME 2 GM in Normal Saline 100 ML IVPB (06:31)
[2025-04-24 06:38] LABS: Abs Immature Grans 0.09 10^3/uL (0.0-0.06); HCT 37.3 % (40.0-50.0); HGB 12.1 g/dL (13.5-17.5); Immature Grans % 0.6 %; MCH 30.4 pg (27.0-33.0); MCHC 32.4 % (32.0-36.0); MCV 94 fL (80-95); MPV 9.2 fL (8.0-11.0); Platelet Count 236 10^3/uL (130-400); RBC 3.98 10^6/uL (4.36-5.78); RDW 14.0 % (11.8-14.1); RDW-SD 48.1 fL; WBC 15.05 10^3/uL (4.4-10.8)
[2025-04-24 06:58] LABS: ALT 27 U/L (16-63); AST 29 U/L (15-37); Albumin 2.3 g/dL (3.4-5.0); Alkaline Phosphatase 82 U/L (46-116); Anion Gap 2.6 mmol/L (3-11); BUN 13 mg/dL (7-18); Bilirubin, Total 0.5 mg/dL (0.2-1.0); CO2 33.4 mmol/L (21.0-32.0); Calcium 8.6 mg/dL (8.5-10.1); Chloride 102 mmol/L (98-107); Estimated GFR 128.18 (mL/min/1.73m2); Glucose 125 mg/dL (74-106); Magnesium 2.1 mg/dL (1.8-2.4); Potassium 4.3 mmol/L (3.5-5.1); Sodium 138 mmol/L (136-145); Total Protein 6.2 g/dL (6.4-8.2)
[2025-04-24] MEDS: DOXYCYCLINE 100 MG in Normal Saline 100 ML IVPB (08:14)
[2025-04-24] MEDS: Enoxaparin 40 MG/0.4 ML SYR SC (08:15)
[2025-04-24] MEDS: buPROPion-XL 150 MG TABCR 300 MG PO (08:17)
[2025-04-24] MEDS: Gabapentin 600 MG TAB PO (08:17)
[2025-04-24] MEDS: Losartan 50 MG TAB PO (08:19)
[2025-04-24] MEDS: Vitamins B Comp w/C TAB 1 TAB PO (08:19)
[2025-04-24] MEDS: Thiamine 100 MG TAB PO (08:19)
[2025-04-24] MEDS: Levalbuterol 1.25 MG/3 ML UPD VIAL UPD ×2 (08:25→17:43)
[2025-04-24] MEDS: Budesonide 0.5 MG/2 ML UPD VIAL IH (08:25)
--- NOTE | 2025-04-24 08:45 | RT.EKG_ITS ---
APPROVED REPORT Exam: Resting ECG Reason for Exam: Arrhythmia Patient Location: I HR:58 bpm ECG Measurements Heart Rate 58 AXIS NC 150 P 16 QRSd 107 QRS -6 QT 479 T -7 QTc 471 Conclusion Sinus rhythm...normal P axis, V-rate 50- 99 Left ventricular hypertrophy...multiple voltage criteria Early repolarization
--- NOTE | 2025-04-24 10:20 | NUR.NOTE ---
Nursing Note: Pt reiterated wishes to be made comfortable, which he said yesterday. Specifically, he expressed shortness of breath and I can't do this anymore. and I can't live like this. I validated his feelings, and began coaching breathing techniques as had been effective yesterday. While validating that this is incredibly difficult and I knew he was struggling, pt interjected, right, so why are you making me suffer even longer? I just want to be comfortable. I clarified if he meant he would like to receive medications for pain but still be treated for his respiratory condition or if he meant to stop treatment aimed at getting better and only provide treatment that made him comfortable until he -- pt says he wants the latter. I discussed what it means when we do Comfort Measures, meaning we stop giving him antibiotics, stop checking his vital signs, only give him treatment for comfort. Pt raised his voice, and said, YES, THAT IS WHAT I WANT. I asked again about antibiotics and he said he doesn't want them. I told him we might not be able to make this change today because we would ideally talk to a palliative care doctor, which we could hopefully do Friday (tomorrow). I asked him about his mother and girlfriend. I asked if he would like to see them before making a big decision like that. I asked if he thought he should give his family a chance to talk to him, and for him to see them. At first, he said yes to the idea of wanting to see family. Closing the loop of communication on the matter as well as in attempt to inspire strength and give him a timeline to hang onto, I reiterated, Okay. So, if you tell me again later today that you want to be on comfort measures, I'm going to remind you about what we talked about, okay? That you want to see your family before you make that choice, right? We're just going to get through this day today, I'll keep giving you antibiotics, hopefully you can see your family, and then you can make your final decision tomorrow. Pt raised his voice, saying NO! I do want to see them but I'm making that choice NOW. I am suffering. and repeated, I'm making the choice NOW after I asked him an additional 2 times (I said, When I talked to Donita yesterday, she said that sometimes you say you want to but she thinks you want to live because of your son. and asked pt if his son lived close, how old he was, and if they have a relationship--pt answered Facundo, 17, yes. He began crying but still said yes, he still wants to do this now, he wants to see his family but he does not want to wait. Confirmed again that pt understood that Comfort Measures meant we are not trying to make him better, we are only making him comfortable until he dies. Pt repeatedly says, Yes, that is what I want. I want to be comfortable. I can't breathe. I'm suffering. I'm dying. I just want to go to sleep and not wake up. Even after I said, okay, I hear you, I will tell the doctor and let you know what she says, pt still repeating that he wants comfort measures only. Pt rang call alicea or called out 3 times while I attempted to communicate his wishes to Dr. Cheng to tell me to hurry (to get orders changed). Pt also demonstrates clarity and understanding of comfort measures in conversation with family: While I was discussing with Dr. Cheng, pt states he called his Mother and then his girlfriend, Donita. From the nurse's station, I heard pt say, I am having them stop the antibiotics, they're going to give me meds to make me comfortable until I pass. I'm sorry. (pt crying, but repeatedly apologizing on the phone). Around 11:45, I asked pt if he would like to see a completion supervisor. He said no. I asked if he was pentecostalism or spiritual. He nodded no. I told him at the end of life, at some point you won't be able to talk, so if that is something you're going to want, I can call someone and have them come see you today. He nodded no. I told him to let me know if he changes his mind. He nodded yes.
[2025-04-24] MEDS: Normal Saline Flush 10 ML SYR IVP ×3 (10:42→21:20)
[2025-04-24] MEDS: LORazepam 1 MG TAB PO ×3 (10:45→19:27)
--- NOTE | 2025-04-24 11:58 | PGE_ITS ---
Date of Service Date of service: 04/24/25 Time of Service: 10:00 Assessment and Plan Assessment and plan (1) Comfort measures only status: Status: Acute Assessment and plan: Patient is now on comfort care. Will consult palliative care to coordinate next steps, should he persist for some time. (2) Acute respiratory failure with hypoxia and hypercarbia: Status: Acute Assessment and plan: His respiratory status is very volatile. With agitation he can quickly fall to 60%. Very challenging to reach equilibrium. He has been on precedex and dilaudid drips, adding back benzodiazepines to ensure his comfort. 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 Galo has chosen to be on comfort care. He is able to describe what will happen to him if we withdraw interventions, and he wants interventions withdrawn. Discussed with his mother and stepfather, who are devastated that he does not want to continue. Mr. Galo is competent to decide and is consistent in his wishes to withdraw care. William is frequently, intermittently agitated which results in dramatic desaturations. Very delicate respiratory status. Exam Narrative Exam Narrative: General: This is a chronically ill-appearing man with flattened affect, agitated HEENT: Normocephalic, atraumatic, poor dentition CV: RRR Resp: Bilateral diffuse rales, increased work of breathing noted on 4L via HFNC Abd: NTND +NBS Neuro: Awake and alert without focal deficits Objective Last Vital Signs Temp 36.9 C 04/24/25 00:00 Pulse 70 04/24/25 10:01 Resp 29 H 04/24/25 10:01 BP 132/77 04/24/25 10:01 Pulse Ox 93 04/24/25 10:01 Laboratory Results - last 24 hr 04/24/25 05:50 WBC 15.05 H RBC 3.98 L Hgb 12.1 L Hct 37.3 L MCV 94 MCH 30.4 MCHC 32.4 RDW 14.0 Plt Count 236 MPV 9.2 Immature Gran % 0.6 Neutrophils % 85.0 Lymphocytes % 6.4 Monocytes % 7.8 Eosinophils % 0.1 Basophils % 0.1 Nucleated RBC % 0.0 Absolute Neutrophils 12.79 H Absolute Lymphocytes 0.96 L Absolute Monocytes 1.17 H Absolute Eosinophils 0.02 Absolute Basophils 0.02 Sodium 138 Potassium 4.3 Chloride 102 Carbon Dioxide 33.4 H Anion Gap 2.6 L BUN 13 Creatinine 0.5 L Est GFR (CKD-EPI 2020) 128.18 Glucose 125 H Calcium 8.6 Magnesium 2.1 Total Bilirubin 0.5 AST 29 ALT 27 Alkaline Phosphatase 82 Total Protein 6.2 L Albumin 2.3 L Time Spent with Patient Time Spent with Patient: 25-34 minutes Time was spent: preparing to see the patient(eg.review tests), obtaining and/or reviewing separately otained hiistory, ordering medications,tests, procedures, r eferring, communicating with other health resident care director, indepentently interpreting results, counseling the patient and care coordination
[2025-04-24 15:13] LABS: Streptococcus Pneumoniae Ag, U Negative (Negative)
[2025-04-24] MEDS: dexmedeTOMidine IN 0.9 % NACL 400 MCG/100 ML BTL 25.26 MCG IV (16:17)
[2025-04-24] MEDS: PROPOFOL 1,000 MG/100 ML BTL 1 MG IV (17:56)
[2025-04-24] MEDS: diazePAM 10 MG/2 ML SYR IVP ×6 (20:21→22:18)
[2025-04-25] VITALS (9 sets, daily range): PULSE 60–82; TEMP 31; O2SAT 91–98
[2025-04-25] MEDS: PROPOFOL 1,000 MG/100 ML BTL 24 MG IV (00:37)
[2025-04-25] MEDS: PROPOFOL 1,000 MG/100 ML BTL 29 MG IV (03:43)
[2025-04-25] MEDS: PROPOFOL 1,000 MG/100 ML BTL 30 MG IV ×3 (06:30→13:05)
[2025-04-25] MEDS: Nicotine 21 MG/24 HR PATCH TD (08:00)
[2025-04-25] MEDS: Glycopyrrolate 0.2 MG/1 ML VIAL 0.1 MG IVP ×2 (08:20→13:08)
[2025-04-25] MEDS: Scopolamine 1 MG/3 DAYS PATCH TD (08:20)
[2025-04-25] MEDS: Normal Saline Flush 10 ML SYR IVP (08:25)
[2025-04-25] MEDS: Normal Saline 500 ML 20 ML IV (08:28)
--- NOTE | 2025-04-25 09:01 | CMPROGNOTE_ITS ---
Date of service: 04/25/25 Time of Service: 09:02 Care Management Progress Note Progress Note Text Progress Note Text: William made the decision to go on comfort measure over the weekend. He was started on a hydromorphone drip at 1 mg/hr which was increased to 10 mg/h over t he course of 12-14 hours. This morning it was increased to 11 mg/hr. Propofol was added last evening as well. That drip started at 10 mg/hr and was titrated up to 300 mg/h over the course of several hours. This morning a family meeting was held at his mother's request. She was understandably upset about William's decision to go on comfort care knowing that this will lead to his . Included in the meeting were Yeimy Alexander, active directory administrator of the ICU, RT Eaton Sue CM, Jada Galo, William's mother and William's sister on [employer] phone. The family expressed concern that William might not have had the capacity to make that decision, however, ALEA shared that he had had a similar conversation with ALEA on Friday (see note from 04/22/25). This morning William was unresponsive and later at 1504. The family is working with [employer] for final arrangements. His parents were both present and his sister arrived shortly after he . 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 Social Determinants of Health Screening Will the Patient Participate in the Screening?: Declined to provide
--- NOTE | 2025-04-25 11:42 | TELEFU_ITS ---
Date of service: 04/25/25 Time of Service: 11:42 Nutrition Note NOTE: Chart reviewed and noted that patient is sedated on MARKET SPECIALIST status. Will hold trays until called and provide comfort cart for family/friends if needed. No aggressive nutrition intervention planned at this time. Time Spent in Nutritional Counseling and Treatment: 0
[2025-04-25] MEDS: diazePAM 10 MG/2 ML SYR IVP (14:39)
--- NOTE | 2025-04-25 14:49 | PGE_ITS ---
Date of Service Date of service: 04/25/25 Time of Service: 14:49 Assessment and Plan Assessment and plan (1) Comfort measures only status: Status: Acute Assessment and plan: Patient is now on comfort care. Will consult palliative care to coordinate next steps, should he persist for some time. 04/25/25 Did reach out to palliative care today. Family wants to wait until tomorrow before d/w palliative care 11/14 day. Will reach out in am (2) Acute respiratory failure with hypoxia and hypercarbia: Status: Acute Assessment and plan: His respiratory status is very volatile. With agitation he can quickly fall to 60%. Very challenging to reach equilibrium. He has been on precedex and dilaudid drips, adding back benzodiazepines to ensure his comfort. 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 Family meeting with pt's Mother this PM. Pt's medical decision making process and prognosis was discussed in detail. Will c/w current plan. Exam Narrative Exam Narrative: General: This is a chronically ill-appearing man with flattened affect, agitated HEENT: hi-flow in place CV: RRR Resp: Bilateral diffuse rales, increased work of breathing noted on 4L via HFNC Abd: NTND +NBS Neuro: sedated Objective Last Vital Signs Temp 37.3 C 04/24/25 07:30 Pulse 60 04/25/25 08:03 Resp 31 H 04/24/25 20:03 BP 132/77 04/24/25 10:01 Pulse Ox 98 04/25/25 08:03 Laboratory Results - last 24 hr 04/22/25 04/25/25 11:25 07:59 WBC Cancelled RBC Cancelled Hgb Cancelled Hct Cancelled MCV Cancelled MCH Cancelled MCHC Cancelled RDW Cancelled Plt Count Cancelled MPV Cancelled Immature Gran % Cancelled Neutrophils % Cancelled Band Neutrophils % Cancelled Lymphocytes % Cancelled Atypical Lymphs % Cancelled Monocytes % Cancelled Eosinophils % Cancelled Basophils % Cancelled Metamyelocytes % Cancelled Myelocytes % Cancelled Promyelocytes % Cancelled Other Cells % Cancelled Nucleated RBC % Cancelled Absolute Neutrophils Cancelled Absolute Lymphocytes Cancelled Absolute Monocytes Cancelled Absolute Eosinophils Cancelled Absolute Basophils Cancelled RBC Morphology Cancelled Polychromasia Cancelled Hypochromasia Cancelled Poikilocytosis Cancelled Basophilic Stippling Cancelled Anisocytosis Cancelled Microcytosis Cancelled Macrocytosis Cancelled Spherocytes Cancelled Tear Drop Cells Cancelled Ovalocytes Cancelled Stomatocytes Cancelled Portillo-Delta Bodies Cancelled [place] Cells/Echinocytes Cancelled Acanthocytes (Spur) Cancelled Schistocytes Cancelled Ur Strep pneumoniae Ag Negative Time Spent with Patient Time Spent with Patient: >50 minutes Time was spent: preparing to see the patient(eg.review tests), obtaining and/or reviewing separately otained hiistory, ordering medications,tests, procedures, referring, communicating with other health lawn caretaker, indepentently interpreting results, counseling the patient, care coordination and other (family meeting with Pt's Mother, bedside nurse, risk management, progressive care manager, reliability manager, RT.)
--- NOTE | 2025-04-25 16:10 | W.PM.DDS ---
Date of service: 04/25/25 Time of Service: 15:04 Discharge Plan Disposition Patient Disposition: Discharge Details Reason For Visit: Acute respiratory failure, Multifocal pneumonia Admit Date/Time: 04/20/25 21:21 Admit Provider: Gabriel Cheng Attending Provider: Gabriel Cheng Primary Care Provider: Renny Rollins Hospital Course Hospital Course: History of Present Illness History of Present Illness Chief Complaint: Worsening dyspnea. Narrative: This is a 44-year-old male patient who is essentially homeless living in a hotel room now but try to get into a home [place] [facility] with him he can have more medical attention and a more normal environment. He does admit to smoking and did present to the ED with shortness of breath without a BM acute on chronic hypoxic with hypercapnic respiratory failure. He also had multilobar pneumonia. He was admitted early in the day and on BiPAP with clearing his hypercapnia and more alert wanting to eat and getting angry and leaving AMA. He did not make it outside the hospital grounds and return to the ED very short of breath. He is requiring higher oxygen supplementation to his baseline and does feel short of breath with no cough. He has had no fever or chest pain. He is hungry and wants to eat and was given a meal. See admission H&P from earlier in the day for details of presentation at that time. He is agreeable to staying in the hospital at this time and I will reinstitute his IV antibiotic therapy and respiratory care. He will receive IV Solu-Medrol because of exacerbation of his chronic lung disease which is mostly restrictive. He is a cigarette smoker and will have nicotine supplement. He does have drug use disorder and often does carry a crack cocaine pipe on his body which will be voluntarily retrieved. He is cooperative at this time. Urine drug screen was only positive for methadone which he is prescribed. Send out urine drug screen for atypical street drugs was also performed. VPMS was reviewed but does not show his administration of methadone through the clinic with no other prescribed controlled substances. This may help in long-term care. He does remain a full code. Assessment and plan (1) Acute respiratory failure with hypoxia and hypercarbia: Start date: 04/20/25 Status: Acute Assessment and plan: This is a 44-year-old gentleman who just left AMA and returned without leaving the hospital premises. He will be readmitted for oxygen supplementation and reinitiation of treatment of exacerbation of his chronic lung disease as well as multifocal pneumonia with IV cefepime and vancomycin. He will receive IV Solu-Medrol as well. He has not required BiPAP at this time but if question of CO2 retention, VBG should be repeated. He does have an elevated lactate which will be followed up with gentle IV hydration overnight. He also will be fed. Long-term he needs to stop smoking tobacco, have his housing and home care issues addressed as well as continue methadone with no illicit drug use if possible. Prognosis poor for these changes. He is a full code. (2) Multifocal pneumonia: Start date: 04/20/25 Status: Acute Assessment and plan: Continue and restart IV cefepime and vancomycin. Respiratory care while in the hospital. 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 Tobacco cessation would be ideal. (4) Depression: Assessment and plan: Continue outpatient medical therapy. (5) Drug use disorder: Status: Chronic Assessment and plan: Urine drug screen is only positive for prescribed methadone and expanded urine drug screen was sent for evaluation. Patient does have a history of smoking crack cocaine in the hospital and he will be monitored closely for carry-on illicit drugs. He was agreeable to this when he left AMA if he did return to the ICU. This will be voluntary. Prognosis is poor for change with patient's social situation and poor insight. He has a high risk for self treatment. (6) Alcohol dependence: Status: Chronic Assessment and plan: Patient does not admit to drinking alcohol recently. Alcohol was not performed and will not be done at this time. Monitor closely for alcohol withdrawal symptoms as well as drug withdrawal symptoms with unknown illicit drug use. (7) Nicotine dependence: Status: Chronic Assessment and plan: NicoDerm patch for supplement while in the hospital. Patient cannot smoke in the hospital. (8) Opioid dependence on agonist therapy: Status: Chronic Assessment and plan: Decrease daily opioid dose of methadone to 100 mg daily from 130 with his acute illness and possible for clearance. This also could cause some respiratory suppression. Avoid benzodiazepines. Assessment and plan (1) Comfort measures only status: Status: Acute Assessment and plan: Patient is now on comfort care. Will consult palliative care to coordinate next steps, should he persist for some time. (2) Acute respiratory failure with hypoxia and hypercarbia: Status: Acute Assessment and plan: His respiratory status is very volatile. With agitation he can quickly fall to 60%. Very challenging to reach equilibrium. He has been on precedex and dilaudid drips, adding back benzodiazepines to ensure his comfort. 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 Galo has chosen to be on comfort care. He is able to describe what will happen to him if we withdraw interventions, and he wants interventions withdrawn. Discussed with his mother and stepfather, who are devastated that he does not want to continue. Mr. Galo is competent to decide and is consistent in his wishes to withdraw care. William is frequently, intermittently agitated which results in dramatic desaturations. Very delicate respiratory status. Pt was placed on CHRONIC CONDITION NURSE and on 04/25/25 at 1504 Discharge Data Cause of : Respiratory arrest Discharge Sum: Prov Provider Primary care physician: Ria Lawson Admitting clinician: Leon Colindres Attending physician on admission: Gabriel Cheng Consults: 04/22/25 12:17 PICC [PICC/Midline Consult] [CONS] Routine Comment: Consultation Status:: Follow-up needed Clarification:: Manage/follow per spec. Reason for consult:: Very difficult access in IVDU Type of Line to be Placed: Midline Pronouncing clinician: Earl Zelaya Discharge Sum: Diag PCOD Cause of : Respiratory arrest Contributing Factors (1) Comfort measures only status: Contributing factors: pneumonia and pulmonary fibrosis (2) Acute respiratory failure with hypoxia and hypercarbia: (3) Prolonged QT interval: (4) Drug-induced diffuse interstitial pulmonary fibrosis: (5) Multifocal pneumonia: (6) Polysubstance abuse:
[2025-04-26 11:22] LABS: M. pneumoniae Ab, IgG Positive (Negative); M. pneumoniae Ab, IgM Negative (Negative)
[2025-04-27 10:50] LABS: Xylazine, Confirmation Urine Negative ng/mL (<50)
[2025-04-27 10:50] LABS: Norfentanyl Confirmation >200 ng/mL (<10)
== END 2025-04-25 17:50 | disposition expired | DRG 193 ==
LOC: ER 19:33 → EDHOLD 04-21 00:01 → ICU 04-21 05:35 → EDHOLD 04-21 17:54 → ICU 04-22 04:27
PROVIDERS: Family Medicine; Internal Medicine Pulmonary Disease; Admitting Provider Family Medicine; Emergency Provider Emergency Medicine; PCP Student in an Organized Health Care Education/Training Program; Responsible Provider Hospitalist; Visit Provider Family Medicine
DX: J18.9 Pneumonia, unspecified organism (principal); J96.21 Acute and chronic respiratory failure with hypoxia; J96.22 Acute and chronic respiratory failure with hypercapnia; F11.20 Opioid dependence, uncomplicated; R45.851 Suicidal ideations; E87.1 Hypo-osmolality and hyponatremia; E87.20 Acidosis, unspecified; Z59.01 Sheltered homelessness; Z51.5 Encounter for palliative care; F32.89 Other specified depressive episodes; F17.210 Nicotine dependence, cigarettes, uncomplicated; R94.31 Abnormal electrocardiogram [ECG] [EKG]; F19.10 Other psychoactive substance abuse, uncomplicated; J98.4 Other disorders of lung; J70.4 Drug-induced interstitial lung disorders, unspecified; Z86.718 Personal history of other venous thrombosis and embolism; F41.9 Anxiety disorder, unspecified; I10 Essential (primary) hypertension; E87.6 Hypokalemia; F32.A Depression, unspecified; Z99.81 Dependence on supplemental oxygen; D72.828 Other elevated white blood cell count; R79.89 Other specified abnormal findings of blood chemistry; R74.8 Abnormal levels of other serum enzymes; R59.0 Localized enlarged lymph nodes; R45.89 Other symptoms and signs involving emotional state; Z59.87 Material hardship due to limited financial resources, not elsewhere classified; F17.220 Nicotine dependence, chewing tobacco, uncomplicated; Z66 Do not resuscitate
CPT/HCPCS: 36410; 00123; 36415; 36592; 71275; 80053; 80307; 80348; 80354; 80375; 82805; 84145; 85027; 87040; 87389; 87449; 87637; 94640; 94761; 96365; 96366; 96367; 96375; 96376; 99223; 99285; J1650; 71045; 80202; 83605; 83735; 84443; 84484; 85025; 85610; 86738; 87070; 87205; 87899; 93005; 93010; 94660; 94664; 94760; 99222; 99232; 99233; 99239; J0613; J0692; J1171; J1596; J1938; J2060; J2270; J2560; J2704; J2919; J3360; J3373; J3475; J3490; J7613; J7614; J7620; J7626